=== PATIENT | female | born 1950 | race Caucasian/White ===

== ENCOUNTER 2016-03-18 13:46 | Inpatient (IN) | payer MEDICARE ==
[2016-03-18] MEDS ORDERED: methylPREDNISolone SOD SUCCI 125 MG/2 ML VIAL IV STA (13:59)
[2016-03-18] MEDS ORDERED: IPRATROPIUM-ALBUTEROL 3 ML NEB INHALATION STA (13:59)
[2016-03-18] MEDS ORDERED: SODIUM CHLORIDE 0.9% 500 ML IV STA (13:59)
--- NOTE | 2016-03-18 14:01 | ED ---
General Adult HPI - General Source: patient, RN notes reviewed Mode of arrival: EMS Limitations: no limitations <Binh Mays - Last Filed: 03/18/16 17:12> <Pedro Cooper - Last Filed: 03/18/16 17:48> - General Chief complaint: Shortness of Breath Stated complaint: AIDAN, fever Time Seen by Provider: 03/18/16 13:50 - History of Present Illness Initial comments: This is a 65-year-old female with a past medical history significant for COPD as well as diabetes patient comes in today complaining that she's having difficulty breathing over the last 2 days. Patient states she is on oxygen at home. Patient denies any abdominal pain patient denies nausea vomiting diarrhea. Patient denies any significant cough or sputum production. Patient denies any chest pain or palpitations. Patient denies any recent fever or chills. Patient denies headache patient denies numbness weakness. Patient denies any recent injury or trauma. She states she believes without problem except that she is getting a little more short of breath lately. (Binh Mays) - Related Data Home Medications Medication Instructions Recorded Confirmed Sertraline [Zoloft] 50 mg PO HS 01/17/14 03/18/16 Montelukast Sodium [Singulair] 10 mg PO HS 10/10/15 03/18/16 Cyclobenzaprine [Flexeril] 10 mg PO TID PRN 03/04/16 03/18/16 Famotidine [Pepcid] 20 mg PO QAM 03/04/16 03/18/16 Furosemide [Lasix] 40 mg PO QAM 03/04/16 03/18/16 Ipratropium-Albuterol Nebulize 3 ml INHALATION RT-QID PRN 03/04/16 03/18/16 [Duoneb 0.5 mg-3 mg/3 ml Soln] Potassium Chloride ER [K-Dur 20] 20 meq PO QAM 03/04/16 03/18/16 metFORMIN HCL 1,000 mg PO BID 03/04/16 03/18/16 Aspirin 325 mg PO DAILY 03/18/16 03/18/16 Clopidogrel [Plavix] 75 mg PO DAILY 03/18/16 03/18/16 Verapamil [Isoptin] 80 mg PO TID 03/18/16 03/18/16 Previous Rx's Medication Instructions Recorded Atorvastatin [Lipitor] 80 mg PO HS #30 tab 03/07/16 Azithromycin [Zithromax Z-pack] 250 mg PO DIRECTED #6 tab 03/18/16 methylPREDNISolone Dose Pack 24 mg PO DAILY #1 tab 03/18/16 [Medrol Dose Pack] Allergies Allergy/AdvReac Type Severity Reaction Status Date / Time adhesive Allergy Rash/Hives Verified 03/18/16 14:33 codeine AdvReac Nausea & Verified 03/18/16 14:33 Vomiting Review of Systems ROS Other: All systems not noted in ROS Statement are negative. <Binh Mays - Last Filed: 03/18/16 17:12> ROS Other: All systems not noted in ROS Statement are negative. <Pedro Cooper - Last Filed: 03/18/16 17:48> ROS Statement: Those systems with pertinent positive or pertinent negative responses have been documented in the HPI. 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 Chronic atrial fibrillation, chronic restrictive and obstructive lung disease secondary to morbid obesity and underlying bronchial asthma, chronic anemia History of Any Multi-Drug Resistant Organisms: None Reported Past Surgical History: Breast Surgery, Hernia Repair Additional Past Surgical History / Comment(s): cataracts Past Anesthesia/Blood Transfusion Reactions: No Reported Reaction Past Psychological History: Anxiety Smoking Status: Never smoker Past Alcohol Use History: None Reported Past Drug Use History: None Reported - Past Family History Mother Family Medical History: CVA/TIA <Binh Mays - Last Filed: 03/18/16 17:12> General Exam Limitations: no limitations <Binh Mays - Last Filed: 03/18/16 17:12> <Pedro Cooper - Last Filed: 03/18/16 17:48> - General Exam Comments Initial Comments: GENERAL: Patient is well-developed and well-nourished. Patient is nontoxic and well- hydrated and is in mild distress. ENT: Neck is soft and supple. No significant lymphadenopathy is noted. Oropharynx is clear. Moist mucous membranes. Neck has full range of motion without eliciting any pain. EYES: The sclera were anicteric and conjunctiva were pink and moist. Extraocular movements were intact and pupils were equal round and reactive to light. Eyelids were unremarkable. PULMONARY: Patient has some expiratory wheezing CARDIOVASCULAR: There is a regular rate and rhythm without any murmurs gallops or rubs. ABDOMEN: Soft and nontender with normal bowel sounds. No palpable organomegaly was noted. There is no palpable pulsatile mass. SKIN: Skin is clear with no lesions or rashes and otherwise unremarkable. NEUROLOGIC: Patient is alert and oriented x3. Cranial nerves II through XII are grossly intact. Motor and sensory are also intact. Normal speech, volume and content. Symmetrical smile. MUSCULOSKELETAL: Normal extremities with adequate strength and full range of motion. No lower extremity swelling or edema. No calf tenderness. LYMPHATICS: No significant lymphadenopathy is noted PSYCHIATRIC: Normal psychiatric evaluation. (Binh Mays) Medical Decision Making - Lab Data Result diagrams: 03/18/16 14:10 03/18/16 14:10 <Binh Mays - Last Filed: 03/18/16 17:12> - Lab Data Result diagrams: 03/18/16 14:10 03/18/16 14:10 - Radiology Data Radiology results: image reviewed (Chest x-ray shows cardiomegaly, right perihilar atelectasis.) <Pedro Cooper - Last Filed: 03/18/16 17:48> - Medical Decision Making EKG shows atrial fibrillation at 100 bpm QRS is 94 QT interval to 96 QTC is 381 per patient's EKG shows no ST segment elevation or depression or T-wave abdomen is noted. Dr. Cooper be taking over the care of this patient at 5 PM (Binh Mays) Patient requesting discharge home. Patient reexamined and resting comfortably at bedside. Lungs with mild occasional expiratory wheeze. Patient updated on results and need for close follow-up. (Pedro Cooper) - Lab Data Lab Results 03/18/16 03/18/16 03/18/16 Range/Units 14:10 14:10 14:10 WBC 9.2 (3.8-10.6) k/uL RBC 3.13 L (3.80-5.40) m/uL Hgb 8.7 L D (11.4-16.0) gm/dL Hct 27.1 L (34.0-46.0) % MCV 86.5 (80.0-100.0) fL MCH 27.8 (25.0-35.0) pg MCHC 32.2 (31.0-37.0) g/dL RDW 15.7 H (11.5-15.5) % Plt Count 264 (150-450) k/uL Neutrophils % 77 % Lymphocytes % 12 % Monocytes % 5 % Eosinophils % 3 % Basophils % 0 % Neutrophils # 7.0 (1.3-7.7) k/uL Lymphocytes # 1.1 (1.0-4.8) k/uL Monocytes # 0.5 (0-1.0) k/uL Eosinophils # 0.3 (0-0.7) k/uL Basophils # 0.0 (0-0.2) k/uL Hypochromasia Slight PT (9.0-12.0) sec INR (<1.1) APTT (22.0-30.0) sec Sodium 138 (137-145) mmol/L Potassium 4.6 (3.5-5.1) mmol/L Chloride 98 (98-107) mmol/L Carbon Dioxide 30 (22-30) mmol/L Anion Gap 10 mmol/L BUN 17 (7-17) mg/dL Creatinine 0.86 (0.52-1.04) mg/dL Est GFR (MDRD) Af Amer >60 (>60 ml/min/1.73 sqM) Est GFR (MDRD) Non-Af >60 (>60 ml/min/1.73 sqM) Glucose 130 H (74-99) mg/dL Calcium 9.2 (8.4-10.2) mg/dL Magnesium 1.5 L (1.6-2.3) mg/dL Total Bilirubin 0.6 (0.2-1.3) mg/dL AST 16 (14-36) U/L ALT 26 (9-52) U/L Alkaline Phosphatase 67 (38-126) U/L Total Creatine Kinase <20 L (30-135) U/L CK-MB (CK-2) 0.3 (0.0-2.4) ng/mL CK-MB (CK-2) Rel Index 0.0 Troponin I 0.015 (0.000-0.034) ng/mL NT-Pro-B Natriuret Pep pg/mL Total Protein 5.7 L (6.3-8.2) g/dL Albumin 3.2 L (3.5-5.0) g/dL 03/18/16 03/18/16 Range/Units 14:10 16:35 WBC (3.8-10.6) k/uL RBC (3.80-5.40) m/uL Hgb (11.4-16.0) gm/dL Hct (34.0-46.0) % MCV (80.0-100.0) fL MCH (25.0-35.0) pg MCHC (31.0-37.0) g/dL RDW (11.5-15.5) % Plt Count (150-450) k/uL Neutrophils % % Lymphocytes % % Monocytes % % Eosinophils % % Basophils % % Neutrophils # (1.3-7.7) k/uL Lymphocytes # (1.0-4.8) k/uL Monocytes # (0-1.0) k/uL Eosinophils # (0-0.7) k/uL Basophils # (0-0.2) k/uL Hypochromasia PT 17.6 H (9.0-12.0) sec INR 1.8 (<1.1) APTT 33.3 H (22.0-30.0) sec Sodium (137-145) mmol/L Potassium (3.5-5.1) mmol/L Chloride (98-107) mmol/L Carbon Dioxide (22-30) mmol/L Anion Gap mmol/L BUN (7-17) mg/dL Creatinine (0.52-1.04) mg/dL Est GFR (MDRD) Af Amer (>60 ml/min/1.73 sqM) Est GFR (MDRD) Non-Af (>60 ml/min/1.73 sqM) Glucose (74-99) mg/dL Calcium (8.4-10.2) mg/dL Magnesium (1.6-2.3) mg/dL Total Bilirubin (0.2-1.3) mg/dL AST (14-36) U/L ALT (9-52) U/L Alkaline Phosphatase (38-126) U/L Total Creatine Kinase (30-135) U/L CK-MB (CK-2) (0.0-2.4) ng/mL CK-MB (CK-2) Rel Index Troponin I (0.000-0.034) ng/mL NT-Pro-B Natriuret Pep 1760 pg/mL Total Protein (6.3-8.2) g/dL Albumin (3.5-5.0) g/dL Disposition <Binh Mays - Last Filed: 03/18/16 17:12> <Pedro Cooper - Last Filed: 03/18/16 17:48> Clinical Impression: Acute exacerbation of chronic obstructive airways disease Disposition: HOME SELF-CARE Condition: Stable Instructions: COPD (Chronic Obstructive Pulmonary Disease) (ED) Additional Instructions: Please follow-up with Dr. Taylor tomorrow. Return for difficulty breathing, fevers, chest pain, worsening symptoms or any other concerns. Prescriptions: Azithromycin [Zithromax Z-pack] 250 mg PO DIRECTED #6 tab methylPREDNISolone Dose Pack [Medrol Dose Pack] 24 mg PO DAILY #1 tab Referrals: John Taylor MD [Primary Care Provider] - 1-2 days
[2016-03-18 14:44] LABS: INR 1.8 (<1.1); Partial Thromboplastin Time 33.3 sec (22.0-30.0); Prothrombin Time 17.6 sec (9.0-12.0)
[2016-03-18 14:46] LABS: Basophils % (A) 0 %; CH 27.4; CHCM 31.8; Eosinophils # (A) 0.3 k/uL (0-0.7); Eosinophils % (A) 3 %; HCT 27.1 % (34.0-46.0); HDW 3.32; Hypochromasia Slight; Luc # (Auto) 0.31; Luc % (Auto) 3; Lymphocytes # (A) 1.1 k/uL (1.0-4.8); Lymphocytes % (A) 12 %; MCH 27.8 pg (25.0-35.0); MCHC 32.2 g/dL (31.0-37.0); MCV 86.5 fL (80.0-100.0); Mean Platelet Volume 7.2; Monocytes # (A) 0.5 k/uL (0-1.0); Monocytes % (A) 5 %; Neutrophils % (A) 77 %; RBC 3.13 m/uL (3.80-5.40); RDW 15.7 % (11.5-15.5); WBC 9.2 k/uL (3.8-10.6); WBC (Perox) 9.48
[2016-03-18 14:48] LABS: HGB 8.7 gm/dL (11.4-16.0)
[2016-03-18 14:52] LABS: ALT 26 U/L (9-52); AST 16 U/L (14-36); Alkaline Phosphatase 67 U/L (38-126); Anion Gap 10 mmol/L; Blood Urea Nitrogen 17 mg/dL (7-17); Calcium 9.2 mg/dL (8.4-10.2); Carbon Dioxide 30 mmol/L (22-30); Chloride 98 mmol/L (98-107); Glucose 130 mg/dL (74-99); Magnesium 1.5 mg/dL (1.6-2.3); Non-African American GFR(MDRD) >60 (>60 ml/min/1.73 sqM); Potassium 4.6 mmol/L (3.5-5.1); Sodium 138 mmol/L (137-145); Total Bilirubin 0.6 mg/dL (0.2-1.3); Total Protein 5.7 g/dL (6.3-8.2)
[2016-03-18 15:08] LABS: Creatine Kinase <20 U/L (30-135)
[2016-03-18 15:21] LABS: Creatine Kinase MB 0.3 ng/mL (0.0-2.4); Troponin I 0.015 ng/mL (0.000-0.034)
--- NOTE | 2016-03-18 16:30 | XR ---
EXAMINATION TYPE: XR chest 2V DATE OF EXAM: 03/18/2016 4:20 PM COMPARISON: 03/09/2016 INDICATION: Difficulty breathing TECHNIQUE: Frontal and lateral views of the chest are obtained. FINDINGS: Heart size is prominent. The pulmonary vasculature is normal. There is slight increased lung markings to the right lung field. Correlate for atelectasis IMPRESSION: 1. Cardiomegaly. 2. Correlate for atelectasis right perihilar region. Follow-up is recommended.
--- NOTE | 2016-03-18 18:57 | ED ---
Medical Decision Making - Medical Decision Making Family present and does not feel patient should go home. They state if she goes home they will just bring her back. Patient is agreeable to admission. Patient states she feels weak and nauseated. Case discussed with Dr. Mora, who will admit for Dr. Taylor. - Lab Data Result diagrams: 03/18/16 14:10 03/18/16 14:10 Lab Results 03/18/16 03/18/16 03/18/16 Range/Units 14:10 14:10 14:10 WBC 9.2 (3.8-10.6) k/uL RBC 3.13 L (3.80-5.40) m/uL Hgb 8.7 L D (11.4-16.0) gm/dL Hct 27.1 L (34.0-46.0) % MCV 86.5 (80.0-100.0) fL MCH 27.8 (25.0-35.0) pg MCHC 32.2 (31.0-37.0) g/dL RDW 15.7 H (11.5-15.5) % Plt Count 264 (150-450) k/uL Neutrophils % 77 % Lymphocytes % 12 % Monocytes % 5 % Eosinophils % 3 % Basophils % 0 % Neutrophils # 7.0 (1.3-7.7) k/uL Lymphocytes # 1.1 (1.0-4.8) k/uL Monocytes # 0.5 (0-1.0) k/uL Eosinophils # 0.3 (0-0.7) k/uL Basophils # 0.0 (0-0.2) k/uL Hypochromasia Slight PT (9.0-12.0) sec INR (<1.1) APTT (22.0-30.0) sec Sodium 138 (137-145) mmol/L Potassium 4.6 (3.5-5.1) mmol/L Chloride 98 (98-107) mmol/L Carbon Dioxide 30 (22-30) mmol/L Anion Gap 10 mmol/L BUN 17 (7-17) mg/dL Creatinine 0.86 (0.52-1.04) mg/dL Est GFR (MDRD) Af Amer >60 (>60 ml/min/1.73 sqM) Est GFR (MDRD) Non-Af >60 (>60 ml/min/1.73 sqM) Glucose 130 H (74-99) mg/dL Calcium 9.2 (8.4-10.2) mg/dL Magnesium 1.5 L (1.6-2.3) mg/dL Total Bilirubin 0.6 (0.2-1.3) mg/dL AST 16 (14-36) U/L ALT 26 (9-52) U/L Alkaline Phosphatase 67 (38-126) U/L Total Creatine Kinase <20 L (30-135) U/L CK-MB (CK-2) 0.3 (0.0-2.4) ng/mL CK-MB (CK-2) Rel Index 0.0 Troponin I 0.015 (0.000-0.034) ng/mL NT-Pro-B Natriuret Pep pg/mL Total Protein 5.7 L (6.3-8.2) g/dL Albumin 3.2 L (3.5-5.0) g/dL 03/18/16 03/18/16 Range/Units 14:10 16:35 WBC (3.8-10.6) k/uL RBC (3.80-5.40) m/uL Hgb (11.4-16.0) gm/dL Hct (34.0-46.0) % MCV (80.0-100.0) fL MCH (25.0-35.0) pg MCHC (31.0-37.0) g/dL RDW (11.5-15.5) % Plt Count (150-450) k/uL Neutrophils % % Lymphocytes % % Monocytes % % Eosinophils % % Basophils % % Neutrophils # (1.3-7.7) k/uL Lymphocytes # (1.0-4.8) k/uL Monocytes # (0-1.0) k/uL Eosinophils # (0-0.7) k/uL Basophils # (0-0.2) k/uL Hypochromasia PT 17.6 H (9.0-12.0) sec INR 1.8 (<1.1) APTT 33.3 H (22.0-30.0) sec Sodium (137-145) mmol/L Potassium (3.5-5.1) mmol/L Chloride (98-107) mmol/L Carbon Dioxide (22-30) mmol/L Anion Gap mmol/L BUN (7-17) mg/dL Creatinine (0.52-1.04) mg/dL Est GFR (MDRD) Af Amer (>60 ml/min/1.73 sqM) Est GFR (MDRD) Non-Af (>60 ml/min/1.73 sqM) Glucose (74-99) mg/dL Calcium (8.4-10.2) mg/dL Magnesium (1.6-2.3) mg/dL Total Bilirubin (0.2-1.3) mg/dL AST (14-36) U/L ALT (9-52) U/L Alkaline Phosphatase (38-126) U/L Total Creatine Kinase (30-135) U/L CK-MB (CK-2) (0.0-2.4) ng/mL CK-MB (CK-2) Rel Index Troponin I (0.000-0.034) ng/mL NT-Pro-B Natriuret Pep 1760 pg/mL Total Protein (6.3-8.2) g/dL Albumin (3.5-5.0) g/dL Disposition Clinical Impression: Acute exacerbation of chronic obstructive airways disease Disposition: ADMITTED IP TO THIS HOSP Condition: Stable Instructions: COPD (Chronic Obstructive Pulmonary Disease) (ED) Additional Instructions: Please follow-up with Dr. Taylor tomorrow. Return for difficulty breathing, fevers, chest pain, worsening symptoms or any other concerns. Prescriptions: Azithromycin [Zithromax Z-pack] 250 mg PO DIRECTED #6 tab methylPREDNISolone Dose Pack [Medrol Dose Pack] 24 mg PO DAILY #1 tab Referrals: John Taylor MD [Primary Care Provider] - 1-2 days
[2016-03-18] MEDS ORDERED: IPRATROPIUM-ALBUTEROL 3 ML NEB INHALATION PRN (18:58)
[2016-03-18] MEDS: AZITHROMYCIN 500 MG TAB PO SCH (20:05)
[2016-03-18] MEDS: IPRATROPIUM-ALBUTEROL 3 ML NEB INHALATION SCH (20:08)
[2016-03-18] MEDS ORDERED: ACETAMINOPHEN TAB 325 MG TAB PO PRN (20:13)
[2016-03-18] MEDS ORDERED: CYCLOBENZAPRINE 10 MG TAB PO PRN (22:37)
[2016-03-18] MEDS: VERAPAMIL 80 MG TAB PO SCH (23:39)
[2016-03-18] MEDS: SERTRALINE 50 MG TAB PO SCH (23:40)
[2016-03-18] MEDS: MONTELUKAST 10 MG TAB PO SCH (23:40)
[2016-03-18] MEDS: methylPREDNISolone SOD SUCCI 125 MG/2 ML VIAL IV SCH (23:40)
[2016-03-18] MEDS: ATORVASTATIN 80 MG TAB PO SCH (23:40)
[2016-03-19] MEDS: methylPREDNISolone SOD SUCCI 125 MG/2 ML VIAL IV SCH ×4 (06:11→23:11)
[2016-03-19 07:14] LABS: Glucose,Whole Blood 341 mg/dL (75-99)
[2016-03-19] MEDS: IPRATROPIUM-ALBUTEROL 3 ML NEB INHALATION SCH ×4 (07:37→20:46)
[2016-03-19] MEDS: VERAPAMIL 80 MG TAB PO SCH ×3 (08:00→21:14)
[2016-03-19] MEDS: ASPIRIN 325 MG TAB PO SCH (08:01)
[2016-03-19] MEDS: POTASSIUM CHLORIDE ER 20 MEQ TAB.ER PO SCH (08:01)
[2016-03-19] MEDS: AZITHROMYCIN 500 MG TAB PO SCH (08:01)
[2016-03-19] MEDS: metFORMIN 500 MG TAB PO SCH ×2 (08:01→21:13)
[2016-03-19] MEDS: CLOPIDOGREL 75 MG TAB PO SCH (08:01)
[2016-03-19] MEDS: FAMOTIDINE 20 MG TAB PO SCH (08:02)
[2016-03-19] MEDS: FUROSEMIDE 40 MG TAB PO SCH (08:02)
[2016-03-19] MEDS: INSULIN LISPRO (humaLOG) 300 UNIT/3 ML VIAL SQ SCH ×3 (08:03→17:50)
[2016-03-19] MEDS ORDERED: Magnesium Replacement Protocol 1 EACH MISC MISCELLANE PRN (08:34)
[2016-03-19 09:09] LABS: Basophils % (A) 0 %; CHCM 29.7; Eosinophils % (A) 0 %; HCT 27.9 % (34.0-46.0); HDW 3.09; HGB 8.4 gm/dL (11.4-16.0); Hypochromasia Marked; Luc # (Auto) 0.08; Luc % (Auto) 1; Lymphocytes # (A) 0.7 k/uL (1.0-4.8); Lymphocytes % (A) 10 %; MCH 27.6 pg (25.0-35.0); MCHC 30.2 g/dL (31.0-37.0); MCV 91.4 fL (80.0-100.0); Mean Platelet Volume 7.4; Monocytes # (A) 0.2 k/uL (0-1.0); Monocytes % (A) 2 %; Neutrophils # (A) 6.5 k/uL (1.3-7.7); Neutrophils % (A) 87 %; RBC 3.05 m/uL (3.80-5.40); RDW 15.5 % (11.5-15.5); WBC 7.5 k/uL (3.8-10.6); WBC (Perox) 8.23
[2016-03-19 09:12] LABS: INR 1.6 (<1.1); Prothrombin Time 15.3 sec (9.0-12.0)
[2016-03-19 09:32] LABS: Anion Gap 13 mmol/L; Blood Urea Nitrogen 20 mg/dL (7-17); Calcium 9.2 mg/dL (8.4-10.2); Carbon Dioxide 28 mmol/L (22-30); Chloride 95 mmol/L (98-107); Glucose 438 mg/dL (74-99); Non-African American GFR(MDRD) >60 (>60 ml/min/1.73 sqM); Potassium 4.8 mmol/L (3.5-5.1); Sodium 136 mmol/L (137-145)
[2016-03-19 10:46] LABS: Hemoglobin A1C 7.1 % (4.2-6.1)
[2016-03-19] MEDS: MAGNESIUM SULFATE-D5W PMX 1 GM in DEXTROSE/WATER 1 100ML.BAG IVPB SCH ×2 (11:22→13:07)
[2016-03-19 12:41] LABS: Glucose,Whole Blood 408 mg/dL (75-99)
[2016-03-19] MEDS ORDERED: INSULIN REGULAR BOLUS (FROM DRIP BAG) IV ONE (14:20)
--- NOTE | 2016-03-19 15:13 | P.HPIM ---
History of Present Illness H&P Date: 03/19/16 Chief Complaint: Shortness of breath Patient is a 65-year-old female with medical history significant for asthma, COPD, urinary tract infection, atrial fibrillation, obstructive sleep apnea maintained on CPAP on an outpatient basis, morbid obesity, diabetes mellitus type 2, large anterior abdominal wall hernia, chronic back pain with lumbar radiculopathy, generalized anxiety, chronic hypoxic respiratory failure on home O2 at 4 L [id number], hypertension, anemia, and renal insufficiency. Patient presented to the emergency department with complaints of difficulty breathing 2 days. Patient denied any other symptoms except getting more short of breath lately. Admission EKG with atrial fibrillation and nonspecific T-wave abnormality. Admission chest x-ray with evidence of cardiomegaly and possible atelectasis of the right perihilar region. Labs on admission hemoglobin 8.7, INR 1.8, magnesium 1.5, NT proBNP 1760. Patient with clinical findings of expiratory wheezing. Patient was admitted to the medical floor with the impression of acute exacerbation of chronic obstructive airways disease for antibiotics and steroid treatment. Consults requested for Dr. Rubalcava for pulmonary service and cardiology for history of heart failure and atrial fibrillation. Upon examination, patient reports improvement in breathing. Patient denies chills, nausea, vomiting, cough, chest pain, abdominal pain, or leg swelling. Patient reports good appetite. There is concern that patient may not have been taking her prescribed medications at home and is a vague upon questioning. It is noted the patient has had for visits in the last month to the hospital with complaints of difficulty breathing. Patient lives with her niece and nephew but states they should be helping her more. 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 Chronic atrial fibrillation, chronic restrictive and obstructive lung disease secondary to morbid obesity and underlying bronchial asthma, chronic anemia History of Any Multi-Drug Resistant Organisms: None Reported Past Surgical History: Breast Surgery, Hernia Repair Additional Past Surgical History / Comment(s): cataracts Past Anesthesia/Blood Transfusion Reactions: No Reported Reaction Past Psychological History: Anxiety Smoking Status: Never smoker Past Alcohol Use History: None Reported Past Drug Use History: None Reported - Past Family History Mother Family Medical History: CVA/TIA Medications and Allergies Home Medications Medication Instructions Recorded Confirmed Type Sertraline [Zoloft] 50 mg PO HS 01/17/14 03/18/16 History Montelukast Sodium [Singulair] 10 mg PO HS 10/10/15 03/18/16 History Cyclobenzaprine [Flexeril] 10 mg PO TID PRN 03/04/16 03/18/16 History Famotidine [Pepcid] 20 mg PO QAM 03/04/16 03/18/16 History Furosemide [Lasix] 40 mg PO QAM 03/04/16 03/18/16 History Ipratropium-Albuterol Nebulize 3 ml INHALATION RT-QID PRN 03/04/16 03/18/16 History [Duoneb 0.5 mg-3 mg/3 ml Soln] Potassium Chloride ER [K-Dur 20] 20 meq PO QAM 03/04/16 03/18/16 History metFORMIN HCL 1,000 mg PO BID 03/04/16 03/18/16 History Aspirin 325 mg PO DAILY 03/18/16 03/18/16 History Clopidogrel [Plavix] 75 mg PO DAILY 03/18/16 03/18/16 History Verapamil [Isoptin] 80 mg PO TID 03/18/16 03/18/16 History Allergies Allergy/AdvReac Type Severity Reaction Status Date / Time adhesive Allergy Rash/Hives Verified 03/18/16 14:33 codeine AdvReac Nausea & Verified 03/18/16 14:33 Vomiting Physical Exam Vitals: Vital Signs Temp Pulse Pulse Resp BP BP Pulse Ox 03/19/16 07:52 92 03/19/16 07:37 88 03/19/16 07:00 98.4 F 96 20 132/71 100 03/19/16 06:22 18 95 03/18/16 23:00 98.5 F 86 20 132/76 92 L 03/18/16 22:15 20 03/18/16 20:20 92 03/18/16 20:10 88 03/18/16 20:06 99.2 F 71 20 155/97 92 L 03/18/16 19:05 99.1 F 70 18 148/69 96 Intake and Output 01/03/17 01/04/17 01/04/17 22:59 06:59 14:59 Intake Total 999 999 Balance 999 999 Intake: IV 999 Sodium Chloride 0.9% 500 999 ml @ 999 mls/hr IV .Q31M STA Rx#:[id number] Intake, IV Titration 999 Amount Sodium Chloride 0.9% 500 999 ml @ 999 mls/hr IV .Q31M STA Rx#:[id number] Other: # Voids 2 GENERAL: Pt awake and alert, well-appearing, well-nourished, and in no acute distress. HEAD: Atraumatic, normocephalic. EYES: Pupils equal, round, and reactive to light, extraocular movements intact, sclera anicteric, conjunctiva are normal. ENT: Moist mucous membranes. NECK:Normal range of motion, supple without lymphadenopathy or JVD. No carotid bruits. Thyroid midline, small and firm without palpable masses. LUNGS: Breath sounds diminished to auscultation bilaterally. Mild expiratory wheezing. HEART: Heart S1, S2, no S3 or S4. Irregularly irregular. No murmurs, rubs or gallops. ABDOMEN: Soft, morbidly obese, nontender, nondistended, normoactive bowel sounds. No guarding, no rebound. Large incisional hernia present. EXTREMITIES: 2+ peripheral pulses. No edema. No calf tenderness. NEUROLOGICAL: Pt oriented x 3. Cranial nerves II through XII grossly intact. Strength and sensation grossly intact. PSYCH: Normal mood, normal affect. SKIN: Warm, dry, intact. Normal turgor. No rashes or lesions. Results CBC & Chem 7: 03/19/16 08:38 03/19/16 08:38 Labs: Abnormal Lab Results - Last 24 Hours (Table) 03/19/16 03/19/16 03/19/16 Range/Units 07:12 08:38 08:38 RBC 3.05 L (3.80-5.40) m/uL Hgb 8.4 L (11.4-16.0) gm/dL Hct 27.9 L (34.0-46.0) % MCHC 30.2 L (31.0-37.0) g/dL Lymphocytes # 0.7 L (1.0-4.8) k/uL PT 15.3 H (9.0-12.0) sec Sodium (137-145) mmol/L Chloride (98-107) mmol/L BUN (7-17) mg/dL Glucose (74-99) mg/dL POC Glucose (mg/dL) 341 H (75-99) mg/dL 03/19/16 03/19/16 Range/Units 08:38 12:40 RBC (3.80-5.40) m/uL Hgb (11.4-16.0) gm/dL Hct (34.0-46.0) % MCHC (31.0-37.0) g/dL Lymphocytes # (1.0-4.8) k/uL PT (9.0-12.0) sec Sodium 136 L (137-145) mmol/L Chloride 95 L (98-107) mmol/L BUN 20 H (7-17) mg/dL Glucose 438 H (74-99) mg/dL POC Glucose (mg/dL) 408 H (75-99) mg/dL Thrombosis Risk Factor Assmnt - DVT/VTE Prophylaxis DVT/VTE Prophylaxis: Mechanical Prophylaxis ordered - Choose All That Apply Any of the Below Risk Factors Present?: Yes Each Factor Represents 1 point: Abnormal pulmonary function (COPD), Obesity ( BMI >25), Swollen legs (current) Other Risk Factors: Yes Each Risk Factor Represents 2 Points: Age 61-74 years Other congenital or acquired thrombophilia - If yes, enter type in comment: No Thrombosis Risk Factor Assessment Total Risk Factor Score: 5 Thrombosis Risk Factor Assessment Level: High Risk Assessment and Plan Plan: Impression and plan: 1. Acute exacerbation of COPD. Pulmonology consult requested, recommendations pending. Continue DuoNeb updrafts. Continue PO Lasix. Continue methylprednisolone. Continue supplemental oxygen. continue Zithromax. 2. Chronic bronchial asthma. Continue Singulair. 3. Chronic atrial fibrillation. INR 1.6. Cardiology consult requested, recommendations pending for anticoagulation. Continue verapamil. 4. Obstructive sleep apnea maintained on CPAP on outpatient basis. 5. Diabetes mellitus type 2, uncontrolled. Hemoglobin A1c 7.1. Start patient on IV insulin until steroids are tapered down. 6. Large anterior abdominal wall hernia. Continue to monitor. 7. History of chronic back pain with lumbar radiculopathy. Continue pain management as needed. 8. Generalized anxiety. Continue Zoloft. 9. Chronic hypoxic respiratory failure on home O2 at 3-4 L [id number]. Continue supplemental oxygen. 10. Hypertension. 11. Anemia, normocytic, normochromic suspect secondary to chronic disease. 12. Super morbid obesity. BMI 50.6. 13. Chronic diastolic congestive heart failure. last echocardiogram with Doppler with an EF between 50-55% and moderate pulmonary hypertension. 14. DVT prophylaxis. pneumatic compression sleeves to bilateral lower extremities. 15. GI prophylaxis. Continue Pepcid. 16. Repeat CBC, BMP, PT/INR in a.m. The above impression and plan have been discussed and directed by Dr. Tompkins. Christina RANKIN acting as scribe for Dr. Tompkins.
[2016-03-19] MEDS ORDERED: INSULIN REGULAR 100 UNIT in SODIUM CHLORIDE 0.9% 100 ML IV SCH (15:45)
--- NOTE | 2016-03-19 16:06 | P.CNPUL ---
History of Present Illness Consult date: 03/19/16 Reason for consult: dyspnea Chief complaint: Shortness of breath History of present illness: This is a 65-year-old female was admitted to the emergency room with a complaint of difficulty breathing or for about 2 days prior to admission. She does use oxygen at home and does have a long-standing history of underlying COPD and diabetes. She apparently in this hospital many times before and was recognized by my nurse practitioner Ambika. In addition she had no wheezing and cough. She did have some phlegm production not a lot. She just felt lots of chest congestion. Denied any fever or chills. No nausea vomiting or diarrhea. He apparently was seen by Dr. Mays in the emergency room and then by Dr. Cooper. Her past medical history includes atrial fibrillation diabetes obesity hyperlipidemia abdominal wall hernias sleep apnea syndrome chronic back pain and generalized anxiety disorder and chronic anemia. Review of Systems A 12 point review of system is primarily positive for shortness of breath which is much improved today. In addition she had wheezing chest congestion cough with some phlegm production not a lot. No fever no chills. No nausea vomiting or diarrhea. Rest of the 12 point review of system was unremarkable Past Medical History Past Medical History: Atrial Fibrillation, COPD, Diabetes Mellitus Additional Past Medical History / Comment(s): Morbid obesity, COPD, bronchial asthma, diabetes mellitus, hyperlipidemia, large anterior abdominal wall hernia , obstructive sleep apnea maintained on CPAP on outpatient basis, back pain, generalized anxiety disorder, lumbar radiculopathy, kidney cysts, 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 Chronic atrial fibrillation, chronic restrictive and obstructive lung disease secondary to morbid obesity and underlying bronchial asthma, chronic anemia History of Any Multi-Drug Resistant Organisms: None Reported Past Surgical History: Breast Surgery, Hernia Repair Additional Past Surgical History / Comment(s): cataracts Past Anesthesia/Blood Transfusion Reactions: No Reported Reaction Past Psychological History: Anxiety Smoking Status: Never smoker Past Alcohol Use History: None Reported Past Drug Use History: None Reported - Past Family History Mother Family Medical History: CVA/TIA Medications and Allergies Home Medications Medication Instructions Recorded Confirmed Type Sertraline [Zoloft] 50 mg PO HS 01/17/14 03/18/16 History Montelukast Sodium [Singulair] 10 mg PO HS 10/10/15 03/18/16 History Cyclobenzaprine [Flexeril] 10 mg PO TID PRN 03/04/16 03/18/16 History Famotidine [Pepcid] 20 mg PO QAM 03/04/16 03/18/16 History Furosemide [Lasix] 40 mg PO QAM 03/04/16 03/18/16 History Ipratropium-Albuterol Nebulize 3 ml INHALATION RT-QID PRN 03/04/16 03/18/16 History [Duoneb 0.5 mg-3 mg/3 ml Soln] Potassium Chloride ER [K-Dur 20] 20 meq PO QAM 03/04/16 03/18/16 History metFORMIN HCL 1,000 mg PO BID 03/04/16 03/18/16 History Aspirin 325 mg PO DAILY 03/18/16 03/18/16 History Clopidogrel [Plavix] 75 mg PO DAILY 03/18/16 03/18/16 History Verapamil [Isoptin] 80 mg PO TID 03/18/16 03/18/16 History Allergies Allergy/AdvReac Type Severity Reaction Status Date / Time adhesive Allergy Rash/Hives Verified 03/18/16 14:33 codeine AdvReac Nausea & Verified 03/18/16 14:33 Vomiting Physical Exam Osteopathic Statement: *. No significant issues noted on an osteopathic structural exam other than those noted in the History and Physical/Consult. Vitals: Vital Signs Temp Pulse Pulse Resp BP BP Pulse Ox 03/19/16 15:00 98.7 F 83 19 140/62 95 03/19/16 07:52 92 03/19/16 07:37 88 03/19/16 07:00 98.4 F 96 20 132/71 100 03/19/16 06:22 18 95 03/18/16 23:00 98.5 F 86 20 132/76 92 L 03/18/16 22:15 20 03/18/16 20:20 92 03/18/16 20:10 88 03/18/16 20:06 99.2 F 71 20 155/97 92 L 03/18/16 19:05 99.1 F 70 18 148/69 96 Intake and Output 03/19/16 03/19/16 03/19/16 06:59 14:59 22:59 Intake Total 999 Balance 999 Intake: IV 999 Sodium Chloride 0.9% 500 999 ml @ 999 mls/hr IV .Q31M [facility] Rx#:[id number] Other: # Voids 2 4 No acute distress, lying flat in bed. Oriented 3. HEENT examination is grossly unremarkable. Mucous membranes are moist. No oral lesions. Neck supple. Full range of motion. No adenopathy. Cardiovascular examination reveals regular rhythm rate. S1 and S2 normal. Lungs reveal mostly clear breath sounds. A few scattered rhonchi. No wheezes. Abdomen is obese. Extremities are intact. Results - Laboratory Findings CBC and BMP: 03/19/16 08:38 03/19/16 08:38 PT/INR, D-dimer PT 15.3 sec (9.0-12.0) H 03/19/16 08:38 INR 1.6 (<1.1) 03/19/16 08:38 Abnormal lab findings: Abnormal Labs 03/19/16 03/19/16 03/19/16 07:12 08:38 08:38 RBC 3.05 L Hgb 8.4 L Hct 27.9 L MCHC 30.2 L Lymphocytes # 0.7 L PT 15.3 H Sodium Chloride BUN Glucose POC Glucose (mg/dL) 341 H 03/19/16 03/19/16 08:38 12:40 RBC Hgb Hct MCHC Lymphocytes # PT Sodium 136 L Chloride 95 L BUN 20 H Glucose 438 H POC Glucose (mg/dL) 408 H Assessment and Plan (1) Acute exacerbation of chronic obstructive airways disease Status: Acute (2) Anemia Status: Acute (3) Congestive heart failure Status: Acute (4) Morbid obesity Status: Acute Plan: Plan The patient patient's laboratory data x-rays and medications will all be reviewed. Additional recommendations suggestions are forthcoming. Going to that she wants be discharged home. Feeling back to baseline. The primary we' ll make that decision. No additional recommendations are made. Primary doctor Dr. Bhavik Tompkins. Time with Patient: Greater than 30
[2016-03-19 16:43] LABS: Glucose,Whole Blood 245 mg/dL (75-99)
[2016-03-19] MEDS ORDERED: INSULIN LISPRO (humaLOG) 300 UNIT/3 ML VIAL SQ SCH (17:30)
[2016-03-19 17:45] LABS: Glucose,Whole Blood 169 mg/dL (75-99)
[2016-03-19 18:33] LABS: Glucose,Whole Blood 135 mg/dL (75-99)
--- NOTE | 2016-03-19 19:05 | CONS ---
DATE OF CONSULTATION: Eleni Moses who is a 65-year-old female admitted by Dr. Bhavik Tompkins. Consultation requested by Dr. Bhavik Tompkins. Patient admitted to the hospital with increasing shortness of breath and noted to have acute exacerbation of chronic bronchitis. Patient is a nonsmoker, but noted to have asthma and ( ) exposed to smoke, secondary smoke in the house with parents and other family members in the house. Patient lost last year and patient has been morbidly obese all along and has been on multiple medications including Zoloft 50 mg p.o. daily along with montelukast 10 mg p.o., Flexeril 10 mg p.r.n., famotidine 20 mg p.o. daily, furosemide 40 mg p.o. daily, Atrovent and albuterol inhalers, potassium 20 mEq, metformin 1000 mg p.o. b.i.d., aspirin 325 mg, clopidogrel 75 mg, verapamil 80 mg p.o. t.i.d. Patient is ALLERGIC TO CODEINE. Patient denies any chest pain or pressure. Patient has not been on Coumadin. Patient also noted to have chronic atrial fibrillation and flutter with controlled ventricular rate. Patient pro times are mildly elevated in spite of not being on any medications. May be an effect of the antibiotics she is receiving possibly, but patient needs to be on long-term anticoagulation being a diabetic and patient's age to decrease her chance of having thromboembolic complications leading to strokes. Physical examination revealed patient is also anemic and needs to be investigated for anemia because normal LV function is normal. Patient's kidney functions are normal. Physical examination revealed well-developed, well-nourished, morbidly obese female with stable vital signs with a pulse rate of 88 beats per minute, irregularly irregular, blood pressure 132/71, respirations of 18. HEAD: Normocephalic. HEENT unremarkable. Neck is supple. No JVD. CARDIAC EXAMINATION: Irregular rate and rhythm. S1 and S2. LUNGS: Reveal scattered rhonchi. No rales are noted. ABDOMEN: Obese. No organomegaly. Active bowel sounds. EXTREMITIES: No pedal edema. Decreased pedal pulses. ASSESSMENT: 1. Acute exacerbation of chronic bronchitis and history of asthma, secondary smoke. 2. Chronic atrial fibrillation and flutter with controlled ventricular rate. 3. Morbid exogenous obesity. 4. Diabetes mellitus. RECOMMENDATIONS: Based on the ABDON score, patient needs to be on anticoagulation for a long time. Patient would benefit either starting her on newer agents, blockers, or go with the Coumadin. ( ) start the Plavix. Thanks again for this kind referral.
[2016-03-19 20:07] LABS: Glucose,Whole Blood 129 mg/dL (75-99)
[2016-03-19] MEDS: SYMBICORT 160-4.5 MCG INHALER INHALATION SCH (20:46)
[2016-03-19 21:01] LABS: Glucose,Whole Blood 162 mg/dL (75-99)
[2016-03-19] MEDS: ATORVASTATIN 80 MG TAB PO SCH (21:13)
[2016-03-19] MEDS: MONTELUKAST 10 MG TAB PO SCH (21:13)
[2016-03-19] MEDS: SERTRALINE 50 MG TAB PO SCH (21:13)
[2016-03-19 23:00] LABS: Glucose,Whole Blood 219 mg/dL (75-99)
[2016-03-20 01:09] LABS: Glucose,Whole Blood 148 mg/dL (75-99)
[2016-03-20 03:09] LABS: Glucose,Whole Blood 121 mg/dL (75-99)
[2016-03-20 04:09] LABS: Glucose,Whole Blood 139 mg/dL (75-99)
[2016-03-20 06:02] LABS: Glucose,Whole Blood 185 mg/dL (75-99)
[2016-03-20] MEDS: methylPREDNISolone SOD SUCCI 125 MG/2 ML VIAL IV SCH (06:13)
[2016-03-20] MEDS: POTASSIUM CHLORIDE ER 20 MEQ TAB.ER PO SCH (08:23)
[2016-03-20] MEDS: ASPIRIN 325 MG TAB PO SCH (08:23)
[2016-03-20] MEDS: metFORMIN 500 MG TAB PO SCH ×2 (08:23→21:18)
[2016-03-20] MEDS: FAMOTIDINE 20 MG TAB PO SCH (08:23)
[2016-03-20] MEDS: CLOPIDOGREL 75 MG TAB PO SCH (08:23)
[2016-03-20] MEDS: AZITHROMYCIN 500 MG TAB PO SCH (08:23)
[2016-03-20] MEDS: FUROSEMIDE 40 MG TAB PO SCH (08:23)
[2016-03-20] MEDS: VERAPAMIL 80 MG TAB PO SCH ×3 (08:23→21:19)
[2016-03-20] MEDS: IPRATROPIUM-ALBUTEROL 3 ML NEB INHALATION SCH ×5 (08:24→20:49)
[2016-03-20] MEDS: SYMBICORT 160-4.5 MCG INHALER INHALATION SCH ×3 (08:25→20:49)
[2016-03-20] MEDS: INSULIN LISPRO (humaLOG) 300 UNIT/3 ML VIAL SQ SCH ×5 (08:27→21:20)
[2016-03-20 08:38] LABS: Glucose,Whole Blood 146 mg/dL (75-99)
[2016-03-20 08:39] LABS: Basophils % (A) 0 %; CH 27.5; CHCM 30.7; Eosinophils % (A) 0 %; HCT 26.4 % (34.0-46.0); HDW 3.05; HGB 7.9 gm/dL (11.4-16.0); Hypochromasia Moderate; Luc # (Auto) 0.07; Luc % (Auto) 0; Lymphocytes # (A) 0.6 k/uL (1.0-4.8); Lymphocytes % (A) 3 %; MCH 26.9 pg (25.0-35.0); MCHC 29.8 g/dL (31.0-37.0); Mean Platelet Volume 8.1; Monocytes # (A) 0.6 k/uL (0-1.0); Monocytes % (A) 3 %; Neutrophils # (A) 17.3 k/uL (1.3-7.7); Neutrophils % (A) 93 %; RBC 2.94 m/uL (3.80-5.40); RDW 15.8 % (11.5-15.5); WBC 18.5 k/uL (3.8-10.6)
[2016-03-20 09:27] LABS: Anion Gap 11 mmol/L; Blood Urea Nitrogen 33 mg/dL (7-17); Calcium 9.7 mg/dL (8.4-10.2); Carbon Dioxide 29 mmol/L (22-30); Chloride 99 mmol/L (98-107); Glucose 151 mg/dL (74-99); Magnesium 1.9 mg/dL (1.6-2.3); Non-African American GFR(MDRD) 54 (>60 ml/min/1.73 sqM); Potassium 5.3 mmol/L (3.5-5.1); Sodium 139 mmol/L (137-145)
[2016-03-20 10:43] LABS: Glucose,Whole Blood 99 mg/dL (75-99)
[2016-03-20 11:35] LABS: Glucose,Whole Blood 83 mg/dL (75-99)
[2016-03-20 12:07] LABS: Glucose,Whole Blood 79 mg/dL (75-99)
--- NOTE | 2016-03-20 13:39 | P.PN ---
Subjective This is a pleasant 65-year-old female patient who follows with Dr. Taylor as her primary care physician. May be she has a history of diabetes mellitus, atrial fibrillation, chronic obstructive pulmonary disease. She presented here on 03/18/2016 with complaints of increasing shortness of breath cough and congestion. She is seen again today in follow-up. She is awake and alert in no acute distress. She is been treated for COPD exacerbation. There is no clear evidence of pneumonia. She is breathing better today as compared to yesterday and is anxious to go home. Objective - Vital Signs Vital signs: Vital Signs Temp 97.3 F L 03/20/16 07:00 Pulse 92 03/20/16 12:16 Resp 24 03/20/16 07:00 BP 151/68 03/20/16 07:00 Pulse Ox 96 03/20/16 08:15 Intake & Output 03/19/16 03/20/16 03/20/16 18:59 06:59 18:59 Intake Total 12.75 431.483 256.500 Balance 12.75 431.483 256.500 Intake: Intake, IV Titration 12.75 31.483 16.500 Amount Insulin Regular 100 unit 12.75 31.483 16.500 In Sodium Chloride 0.9% 100 ml @ Titrate IV .Q0M [facility] Rx#:[id number] Oral 400 240 Other: Voiding Method Bedside Commode # Voids 4 2 - Exam GENERAL EXAM: Alert, active, comfortable in no apparent distress. HEAD: Normocephalic. EYES: Normal reaction of pupils, equal size. NOSE: Clear with pink turbinates. THROAT: No erythema or exudates. NECK: No masses, no JVD. CHEST: No chest wall deformity. LUNGS: Equal air entry with no crackles, wheeze, rhonchi or dullness. CVS: S1 and S2 normal with no audible murmurs, regular rhythm. ABDOMEN: Large abdominal wall incisional hernia. Obese, normal bowel sounds, no guarding or rigidity. Extremities: There is trace peripheral edema. No clubbing, no cyanosis. Peripheral pulses are intact. - Labs CBC & Chem 7: 03/20/16 08:20 03/20/16 08:20 Labs: Abnormal Lab Results - Last 24 Hours (Table) 03/19/16 03/19/16 03/19/16 Range/Units 16:42 17:44 18:31 WBC (3.8-10.6) k/uL RBC (3.80-5.40) m/uL Hgb (11.4-16.0) gm/dL Hct (34.0-46.0) % MCHC (31.0-37.0) g/dL RDW (11.5-15.5) % Neutrophils # (1.3-7.7) k/uL Lymphocytes # (1.0-4.8) k/uL Potassium (3.5-5.1) mmol/L BUN (7-17) mg/dL Glucose (74-99) mg/dL POC Glucose (mg/dL) 245 H 169 H 135 H (75-99) mg/dL 03/19/16 03/19/16 03/19/16 Range/Units 20:03 20:59 22:55 WBC (3.8-10.6) k/uL RBC (3.80-5.40) m/uL Hgb (11.4-16.0) gm/dL Hct (34.0-46.0) % MCHC (31.0-37.0) g/dL RDW (11.5-15.5) % Neutrophils # (1.3-7.7) k/uL Lymphocytes # (1.0-4.8) k/uL Potassium (3.5-5.1) mmol/L BUN (7-17) mg/dL Glucose (74-99) mg/dL POC Glucose (mg/dL) 129 H 162 H 219 H (75-99) mg/dL 03/20/16 03/20/16 03/20/16 Range/Units 01:04 03:05 04:05 WBC (3.8-10.6) k/uL RBC (3.80-5.40) m/uL Hgb (11.4-16.0) gm/dL Hct (34.0-46.0) % MCHC (31.0-37.0) g/dL RDW (11.5-15.5) % Neutrophils # (1.3-7.7) k/uL Lymphocytes # (1.0-4.8) k/uL Potassium (3.5-5.1) mmol/L BUN (7-17) mg/dL Glucose (74-99) mg/dL POC Glucose (mg/dL) 148 H 121 H 139 H (75-99) mg/dL 03/20/16 03/20/16 03/20/16 Range/Units 05:58 08:20 08:20 WBC 18.5 H (3.8-10.6) k/uL RBC 2.94 L (3.80-5.40) m/uL Hgb 7.9 L (11.4-16.0) gm/dL Hct 26.4 L (34.0-46.0) % MCHC 29.8 L (31.0-37.0) g/dL RDW 15.8 H (11.5-15.5) % Neutrophils # 17.3 H (1.3-7.7) k/uL Lymphocytes # 0.6 L (1.0-4.8) k/uL Potassium 5.3 H (3.5-5.1) mmol/L BUN 33 H (7-17) mg/dL Glucose 151 H (74-99) mg/dL POC Glucose (mg/dL) 185 H (75-99) mg/dL 03/20/16 Range/Units 08:25 WBC (3.8-10.6) k/uL RBC (3.80-5.40) m/uL Hgb (11.4-16.0) gm/dL Hct (34.0-46.0) % MCHC (31.0-37.0) g/dL RDW (11.5-15.5) % Neutrophils # (1.3-7.7) k/uL Lymphocytes # (1.0-4.8) k/uL Potassium (3.5-5.1) mmol/L BUN (7-17) mg/dL Glucose (74-99) mg/dL POC Glucose (mg/dL) 146 H (75-99) mg/dL Assessment and Plan Plan: Impression: #1 Acute exacerbation of chronic obstructive pulmonary disease. #2 Morbid obesity with severe restrictive lung disease. #3 Chronic bronchial asthma. #4 Obstructive sleep apnea, maintained on CPAP in the outpatient setting. #5 Chronic paroxysmal atrial fibrillation, anticoagulated with warfarin. #6 Chronic hypoxic respiratory failure secondary to chronic obstructive pulmonary disease maintained on oxygen. #7 Diabetes mellitus. #8 Hyperlipidemia. #9 Large anterior abdominal wall incisional hernia. Plan: The patient was seen and evaluated by Dr. Rubalcava. She is stable from the pulmonary standpoint and could be discharged home on her usual pulmonary medications including a prednisone taper. She can follow-up in our office in 1- 2 weeks' time. She is encouraged to call sooner with any recurrence of symptoms or other questions or concerns.
--- NOTE | 2016-03-20 16:08 | P.PN ---
Subjective Principal diagnosis: Acute exacerbation of COPD Patient is a 65-year-old female with medical history significant for asthma, COPD, urinary tract infection, atrial fibrillation, obstructive sleep apnea maintained on CPAP on an outpatient basis, morbid obesity, diabetes mellitus type 2, large anterior abdominal wall hernia, chronic back pain with lumbar radiculopathy, generalized anxiety, chronic hypoxic respiratory failure on home O2 at 4 L [id number], hypertension, anemia, and renal insufficiency. Patient presented to the emergency department with complaints of difficulty breathing 2 days. Patient denied any other symptoms except getting more short of breath lately. Admission EKG with atrial fibrillation and nonspecific T-wave abnormality. Admission chest x-ray with evidence of cardiomegaly and possible atelectasis of the right perihilar region. Labs on admission hemoglobin 8.7, INR 1.8, magnesium 1.5, NT proBNP 1760. Patient with clinical findings of expiratory wheezing. Patient was admitted to the medical floor with the impression of acute exacerbation of chronic obstructive airways disease for antibiotics and steroid treatment. Consults requested for Dr. Rubalcava for pulmonary service and cardiology for history of heart failure and atrial fibrillation. Upon examination, patient reports improvement in breathing. Patient denies chills, nausea, vomiting, cough, chest pain, abdominal pain, or leg swelling. Patient reports good appetite. Afebrile. Hemodynamically stable. Objective - Vital Signs Vital signs: Vital Signs Temp 97.3 F L 03/20/16 07:00 Pulse 92 03/20/16 12:16 Resp 24 03/20/16 07:00 BP 151/68 03/20/16 07:00 Pulse Ox 96 03/20/16 08:15 Intake & Output 03/19/16 03/20/16 03/20/16 18:59 06:59 18:59 Intake Total 12.75 431.483 496.500 Balance 12.75 431.483 496.500 Intake: Intake, IV Titration 12.75 31.483 16.500 Amount Insulin Regular 100 unit 12.75 31.483 16.500 In Sodium Chloride 0.9% 100 ml @ Titrate IV .Q0M [facility] Rx#:[id number] Oral 400 480 Other: Voiding Method Bedside Commode # Voids 4 2 - Exam GENERAL: Pt awake and alert, well-appearing, well-nourished, and in no acute distress. HEAD: Atraumatic, normocephalic. EYES: Pupils equal, round, and reactive to light, extraocular movements intact, sclera anicteric, conjunctiva are normal. ENT: Moist mucous membranes. NECK:Normal range of motion, supple without lymphadenopathy or JVD. No carotid bruits. Thyroid midline, small and firm without palpable masses. LUNGS: Breath sounds diminished to auscultation bilaterally. Mild expiratory wheezing. HEART: Heart S1, S2, no S3 or S4. Irregularly irregular. No murmurs, rubs or gallops. ABDOMEN: Soft, morbidly obese, nontender, nondistended, normoactive bowel sounds. No guarding, no rebound. Large incisional hernia present. EXTREMITIES: 2+ peripheral pulses. No edema. No calf tenderness. NEUROLOGICAL: Pt oriented x 3. Cranial nerves II through XII grossly intact. Strength and sensation grossly intact. PSYCH: Normal mood, normal affect. SKIN: Warm, dry, intact. Normal turgor. No rashes or lesions. - Labs CBC & Chem 7: 03/20/16 08:20 03/20/16 08:20 Labs: Abnormal Lab Results - Last 24 Hours (Table) 03/19/16 03/19/16 03/19/16 Range/Units 16:42 17:44 18:31 WBC (3.8-10.6) k/uL RBC (3.80-5.40) m/uL Hgb (11.4-16.0) gm/dL Hct (34.0-46.0) % MCHC (31.0-37.0) g/dL RDW (11.5-15.5) % Neutrophils # (1.3-7.7) k/uL Lymphocytes # (1.0-4.8) k/uL Potassium (3.5-5.1) mmol/L BUN (7-17) mg/dL Glucose (74-99) mg/dL POC Glucose (mg/dL) 245 H 169 H 135 H (75-99) mg/dL 03/19/16 03/19/16 03/19/16 Range/Units 20:03 20:59 22:55 WBC (3.8-10.6) k/uL RBC (3.80-5.40) m/uL Hgb (11.4-16.0) gm/dL Hct (34.0-46.0) % MCHC (31.0-37.0) g/dL RDW (11.5-15.5) % Neutrophils # (1.3-7.7) k/uL Lymphocytes # (1.0-4.8) k/uL Potassium (3.5-5.1) mmol/L BUN (7-17) mg/dL Glucose (74-99) mg/dL POC Glucose (mg/dL) 129 H 162 H 219 H (75-99) mg/dL 03/20/16 03/20/16 03/20/16 Range/Units 01:04 03:05 04:05 WBC (3.8-10.6) k/uL RBC (3.80-5.40) m/uL Hgb (11.4-16.0) gm/dL Hct (34.0-46.0) % MCHC (31.0-37.0) g/dL RDW (11.5-15.5) % Neutrophils # (1.3-7.7) k/uL Lymphocytes # (1.0-4.8) k/uL Potassium (3.5-5.1) mmol/L BUN (7-17) mg/dL Glucose (74-99) mg/dL POC Glucose (mg/dL) 148 H 121 H 139 H (75-99) mg/dL 03/20/16 03/20/16 03/20/16 Range/Units 05:58 08:20 08:20 WBC 18.5 H (3.8-10.6) k/uL RBC 2.94 L (3.80-5.40) m/uL Hgb 7.9 L (11.4-16.0) gm/dL Hct 26.4 L (34.0-46.0) % MCHC 29.8 L (31.0-37.0) g/dL RDW 15.8 H (11.5-15.5) % Neutrophils # 17.3 H (1.3-7.7) k/uL Lymphocytes # 0.6 L (1.0-4.8) k/uL Potassium 5.3 H (3.5-5.1) mmol/L BUN 33 H (7-17) mg/dL Glucose 151 H (74-99) mg/dL POC Glucose (mg/dL) 185 H (75-99) mg/dL 03/20/16 Range/Units 08:25 WBC (3.8-10.6) k/uL RBC (3.80-5.40) m/uL Hgb (11.4-16.0) gm/dL Hct (34.0-46.0) % MCHC (31.0-37.0) g/dL RDW (11.5-15.5) % Neutrophils # (1.3-7.7) k/uL Lymphocytes # (1.0-4.8) k/uL Potassium (3.5-5.1) mmol/L BUN (7-17) mg/dL Glucose (74-99) mg/dL POC Glucose (mg/dL) 146 H (75-99) mg/dL Assessment and Plan Plan: Impression and plan: 1. Acute exacerbation of COPD. Pulmonology consult requested, recommendations noted. Continue DuoNeb updrafts. Continue PO Lasix. Continue methylprednisolone. Continue supplemental oxygen. Continue Zithromax. From a pulmonary standpoint, patient is stable for discharge to home with follow-up in office on a tapered steroid pack. 2. Chronic bronchial asthma. Continue Singulair. 3. Chronic atrial fibrillation. INR 1.6. Cardiology consult requested, recommendations pending for anticoagulation. Continue verapamil. 4. Obstructive sleep apnea maintained on CPAP on outpatient basis. 5. Diabetes mellitus type 2, uncontrolled. Hemoglobin A1c 7.1. Start patient on Lantus and Humalog sliding scale per protocol. 6. Large anterior abdominal wall hernia. Continue to monitor. 7. History of chronic back pain with lumbar radiculopathy. Continue pain management as needed. 8. Generalized anxiety. Continue Zoloft. 9. Chronic hypoxic respiratory failure on home O2 at 3-4 L [id number]. Continue supplemental oxygen. 10. Hypertension. 11. Anemia, normocytic, normochromic suspect secondary to chronic disease. 12. Super morbid obesity. BMI 50.6. 13. Chronic diastolic congestive heart failure. last echocardiogram with Doppler with an EF between 50-55% and moderate pulmonary hypertension. 14. Leukocytosis, suspect steroid-induced. Repeat CBC in a.m. 15. DVT prophylaxis. pneumatic compression sleeves to bilateral lower extremities. 15. GI prophylaxis. Continue Pepcid. 16. Repeat CBC, BMP, PT/INR in a.m. We will ask psychiatry to evaluate patient prior to discharge to determine whether she's able to make good judgments or possibly need a legal guardian. Again there is concern that patient is not taking prescribed medications and needs subacute rehab on discharge or possible group home placement. The above impression and plan have been discussed and directed by Dr. Tompkins. Christina RANKIN acting as scribe for Dr. Tompkins.
[2016-03-20 17:15] LABS: Glucose,Whole Blood 207 mg/dL (75-99)
[2016-03-20] MEDS: methylPREDNISolone SOD SUCCI 40 MG/ML 1 ML VIAL IV SCH (17:38)
[2016-03-20] MEDS ORDERED: INSULIN GLARGINE 100 UNIT/ML 10 ML VIAL SQ SCH (21:00)
[2016-03-20] MEDS: SERTRALINE 50 MG TAB PO SCH (21:18)
[2016-03-20] MEDS: ATORVASTATIN 80 MG TAB PO SCH (21:18)
[2016-03-20] MEDS: MONTELUKAST 10 MG TAB PO SCH (21:18)
[2016-03-20 21:28] LABS: Glucose,Whole Blood 245 mg/dL (75-99)
[2016-03-21] MEDS: methylPREDNISolone SOD SUCCI 40 MG/ML 1 ML VIAL IV SCH ×2 (00:29→07:49)
[2016-03-21 07:37] LABS: Glucose,Whole Blood 212 mg/dL (75-99)
[2016-03-21] MEDS: INSULIN LISPRO (humaLOG) 300 UNIT/3 ML VIAL SQ SCH ×6 (07:46→17:48)
[2016-03-21] MEDS: ASPIRIN 325 MG TAB PO SCH (07:51)
[2016-03-21] MEDS: AZITHROMYCIN 500 MG TAB PO SCH (07:51)
[2016-03-21] MEDS: CLOPIDOGREL 75 MG TAB PO SCH (07:51)
[2016-03-21] MEDS: FUROSEMIDE 40 MG TAB PO SCH (07:52)
[2016-03-21] MEDS: metFORMIN 500 MG TAB PO SCH (07:52)
[2016-03-21] MEDS: POTASSIUM CHLORIDE ER 20 MEQ TAB.ER PO SCH (07:52)
[2016-03-21] MEDS: FAMOTIDINE 20 MG TAB PO SCH (07:52)
[2016-03-21] MEDS: VERAPAMIL 80 MG TAB PO SCH ×2 (07:53→17:47)
[2016-03-21] MEDS: IPRATROPIUM-ALBUTEROL 3 ML NEB INHALATION SCH ×3 (07:59→15:45)
[2016-03-21] MEDS: SYMBICORT 160-4.5 MCG INHALER INHALATION SCH (08:00)
[2016-03-21 08:02] VITALS: RESP 18
[2016-03-21 09:10] LABS: Basophils % (A) 0 %; CH 27.5; CHCM 29.9; Eosinophils % (A) 0 %; HCT 29.2 % (34.0-46.0); HDW 2.99; HGB 8.6 gm/dL (11.4-16.0); Hypochromasia Marked; Luc # (Auto) 0.08; Luc % (Auto) 0; Lymphocytes # (A) 0.6 k/uL (1.0-4.8); Lymphocytes % (A) 3 %; MCH 27.4 pg (25.0-35.0); MCHC 29.5 g/dL (31.0-37.0); MCV 92.6 fL (80.0-100.0); Mean Platelet Volume 8.1; Monocytes # (A) 0.8 k/uL (0-1.0); Monocytes % (A) 4 %; Neutrophils # (A) 17.3 k/uL (1.3-7.7); Neutrophils % (A) 92 %; RBC 3.15 m/uL (3.80-5.40); WBC 18.8 k/uL (3.8-10.6)
[2016-03-21 09:31] LABS: Anion Gap 16 mmol/L; Blood Urea Nitrogen 43 mg/dL (7-17); Calcium 9.9 mg/dL (8.4-10.2); Carbon Dioxide 26 mmol/L (22-30); Chloride 96 mmol/L (98-107); Glucose 276 mg/dL (74-99); Non-African American GFR(MDRD) 51 (>60 ml/min/1.73 sqM); Potassium 5.3 mmol/L (3.5-5.1); Sodium 138 mmol/L (137-145)
--- NOTE | 2016-03-21 11:52 | P.PN ---
Subjective This is a pleasant 65-year-old female patient who follows with Dr. Taylor as her primary care physician. She has a history of diabetes mellitus, atrial fibrillation, chronic obstructive pulmonary disease. She presented here on 05/2016 with complaints of increasing shortness of breath cough and congestion. She is seen again today in follow-up. She is awake and alert in no acute distress. She is been treated for COPD exacerbation. There is no clear evidence of pneumonia. She is seen again today 03/21/2015 in follow-up. She is awake and alert in no acute distress. She is breathing better today as compared to yesterday. She has been maintained on bronchodilators, Symbicort, IV Solu-Medrol and empiric antibiotics. Objective - Vital Signs Vital signs: Vital Signs Temp 96.9 F L 03/21/16 07:00 Pulse 80 03/21/16 08:00 Resp 18 03/21/16 07:00 BP 127/56 03/21/16 07:00 Pulse Ox 97 03/21/16 08:03 - Exam GENERAL EXAM: Alert, active, comfortable in no apparent distress. HEAD: Normocephalic. EYES: Normal reaction of pupils, equal size. NOSE: Clear with pink turbinates. THROAT: No erythema or exudates. NECK: No masses, no JVD. CHEST: No chest wall deformity. LUNGS: Equal air entry with no crackles, wheeze, rhonchi or dullness. CVS: S1 and S2 normal with no audible murmurs, regular rhythm. ABDOMEN: Large abdominal wall incisional hernia. Obese, normal bowel sounds, no guarding or rigidity. Extremities: There is trace peripheral edema. No clubbing, no cyanosis. Peripheral pulses are intact. - Labs CBC & Chem 7: 03/21/16 08:18 03/21/16 08:18 Assessment and Plan Plan: Impression: #1 Acute exacerbation of chronic obstructive pulmonary disease. #2 Morbid obesity with severe restrictive lung disease. #3 Chronic bronchial asthma. #4 Obstructive sleep apnea, maintained on CPAP in the outpatient setting. #5 Chronic paroxysmal atrial fibrillation, anticoagulated with warfarin. #6 Chronic hypoxic respiratory failure secondary to chronic obstructive pulmonary disease maintained on oxygen. #7 Diabetes mellitus. #8 Hyperlipidemia. #9 Large anterior abdominal wall incisional hernia. Plan: The patient was seen and evaluated by Dr. Rubalcava. We'll continue with her current medications. We'll discontinue the IV Solu-Medrol and switch her to a prednisone taper. We'll utilize the steroids cautiously as the patient has some questionable psychiatric issues and is pending a psychiatric evaluation. We'll follow the patient on as-needed basis.
[2016-03-21 12:00] LABS: Glucose,Whole Blood 258 mg/dL (75-99)
--- NOTE | 2016-03-21 12:07 | P.CON ---
Psychiatric Consult - . Consult:: 03/21/16 11:56 Psychiatric consultation notes. Mrs. Moses is a 65-year-old white female who was seen on psychiatric evaluation and per RN, it just to evaluate whether patient can go to her own home or would she be in need of extended care facility. There were some questions whether patient was heard talking to herself and whether these behaviors are secondary to some psychotic symptoms or responding to hallucinations. When seen patient was quite alert cooperative and fairly pleasant and indicated that people might consider her as mean as she has nobody to for herself other than her. She was originally from [place] and has dual citizenship . Her nephew and his are living with her and help her manage the household and take care of things and did be done. Neither of them are working and according to her [place] Patient has a cat and a dog and whenever she is away they miss her and she misses them. 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 Patient is concerned that her healthcare provider team is considering to place her in an extended care facility and she absolutely refuses to comply with it. On direct inquiry being she acknowledges that she is depressed and anxious over her physical condition and missing her quite a bit. They were more than 40 years and he approximately 6 months ago. Patient is still in bereavement over his . Denies ever having had any psychiatric problems in the past. Generally sleeps well and has adequate appetite. Patient wants to be sleeping now grown bed which she had shared with her all these years and her desire is to in her own bed Mental status. Patient is an obese built white female with significant facial hairs, in hospital clothes and was cooperative during the evaluation. Patient was appropriately responding to questions, relevant and coherent. Her speech and thought process did not show any abnormal traits. Patient was appropriate in her affect and her mood was fairly euthymic. Denies any depressive or anxiety trends other than over her loss of her and the current physical problems she is experiencing. She claims she is capable of taking care of herself at home with the help of her nephew and his . Patient is oriented to time place and person, and her memory functions are intact. General Information also intact. No evidence of any impairment in insight and judgment. Based on today's evaluation patient is not in need of any active psychiatric treatment and couldn't function well at home. Thank you for the referral.
[2016-03-21 15:59] VITALS: BP 152/60; TEMP 96.6
[2016-03-21 17:13] VITALS: PULSE 80
--- NOTE | 2016-03-21 17:31 | P.DS ---
Providers Date of admission: 03/21/16 09:10 Expected date of discharge: 03/21/16 Attending physician: Bhavik Tompkins Consults: Dr. Rubalcava for pulmonary service, psychiatry service, cardiology service Primary care physician: [facility] Course: Patient is a 65-year-old female with medical history significant for asthma, COPD, urinary tract infection, atrial fibrillation, obstructive sleep apnea maintained on CPAP on an outpatient basis, morbid obesity, diabetes mellitus type 2, large anterior abdominal wall hernia, chronic back pain with lumbar radiculopathy, generalized anxiety, chronic hypoxic respiratory failure on home O2 at 4 L [id number], hypertension, anemia, and renal insufficiency. Patient presented to the emergency department with complaints of difficulty breathing 2 days. Patient denied any other symptoms except getting more short of breath lately. Admission EKG with atrial fibrillation and nonspecific T-wave abnormality. Admission chest x-ray with evidence of cardiomegaly and possible atelectasis of the right perihilar region. Labs on admission hemoglobin 8.7, INR 1.8, magnesium 1.5, NT proBNP 1760. Patient with clinical findings of expiratory wheezing. Patient was admitted to the medical floor with the impression of acute exacerbation of chronic obstructive airways disease for antibiotics and steroid treatment. Consults requested for Dr. Rubalcava for pulmonary service and cardiology for history of heart failure and atrial fibrillation. Patient improved with Zithromax and steroid taper. Patient was evaluated by cardiology who recommends that patient receive anticoagulation such as one of the newer anticoagulants or Coumadin for chronic atrial fibrillation. Dr. Tompkins to address anticoagulation in outpatient setting. Patient was started on Lantus for uncontrolled diabetes mellitus and will follow-up in the outpatient setting. Patient was evaluated by psychiatry service for possible need of legal guardian. Per psychiatrist, patient is not in need of any active psychiatric treatment with no impairment in insight or judgment. Patient was found stable to be discharged to home with home care. Patient instructed to follow-up with Dr. Tompkins early next week. Patient verbalized understanding and agrees to treatment plan. Discharge diagnoses: 1. Acute exacerbation of COPD. 2. Chronic bronchial asthma. 3. Chronic atrial fibrillation. 4. Obstructive sleep apnea maintained on CPAP on outpatient basis. 5. Diabetes mellitus type 2, uncontrolled. 6. Large anterior abdominal wall hernia. 7. History of chronic back pain with lumbar radiculopathy. 8. Generalized anxiety. 9. Chronic hypoxic respiratory failure on home O2 at 3-4 L [id number]. 10. Hypertension. 11. Anemia, normocytic, normochromic suspect secondary to chronic disease. 12. Super morbid obesity. 13. Chronic diastolic congestive heart failure. 14. Leukocytosis, suspect steroid-induced. The above impression and plan have been discussed and directed by Dr. Tompkins. Christina RANKIN acting as scribe for Dr. Tompkins. Pertinent Studies: EKG; chest x-ray Patient Condition at Discharge: Good Plan - Discharge Summary New Discharge Prescriptions: Insulin Glargine [Lantus] 50 unit SQ HS #5 pen predniSONE 0 mg PO DIRECTED #18 tab Discharge Medication List Sertraline [Zoloft] 50 mg PO HS 01/17/14 [History] Montelukast Sodium [Singulair] 10 mg PO HS 10/10/15 [History] Cyclobenzaprine [Flexeril] 10 mg PO TID PRN 03/04/16 [History] Famotidine [Pepcid] 20 mg PO QAM 03/04/16 [History] Furosemide [Lasix] 40 mg PO QAM 03/04/16 [History] Ipratropium-Albuterol Nebulize [Duoneb 0.5 mg-3 mg/3 ml Soln] 3 ml INHALATION RT -QID PRN 03/04/16 [History] Potassium Chloride ER [K-Dur 20] 20 meq PO QAM 03/04/16 [History] metFORMIN HCL 1,000 mg PO BID 03/04/16 [History] Atorvastatin [Lipitor] 80 mg PO HS #30 tab 03/07/16 [Rx] Aspirin 325 mg PO DAILY 03/18/16 [History] Clopidogrel [Plavix] 75 mg PO DAILY 03/18/16 [History] Verapamil [Isoptin] 80 mg PO TID 03/18/16 [History] Insulin Glargine [Lantus] 50 unit SQ HS #5 pen 03/21/16 [Rx] predniSONE 0 mg PO DIRECTED #18 tab 03/21/16 [Rx] Follow up Appointment(s)/Referral(s): [facility], [NON-STAFF] - John Taylor MD [Primary Care Provider] - 03/26/16 1:00 pm Patient Instructions/Handouts: Type 2 Diabetes in Adults (DC), COPD (Chronic Obstructive Pulmonary Disease) (ED) Activity/Diet/Wound Care/Special Instructions: Please follow-up with Dr. Tompkins. Please flower buncher or picker prescriptions in [facility]. Discharge Disposition: HOME WITH HOME HEALTH SERVICES
[2016-03-22] MEDS ORDERED: predniSONE 10 MG TAB PO SCH (09:00)
== END 2016-03-21 17:40 | disposition home health service (06) | DRG 191 ==
LOC: EC 13:46 → 4MS4W 18:58 → OBSVTOIN 03-21 09:10
PROVIDERS: ADMIT Family Medicine; ATTEND Family Medicine
DX: J44.1 Chronic obstructive pulmonary disease with (acute) exacerbation (principal); I50.32 Chronic diastolic (congestive) heart failure; J96.11 Chronic respiratory failure with hypoxia; I27.2 Other secondary pulmonary hypertension; E11.65 Type 2 diabetes mellitus with hyperglycemia; I11.0 Hypertensive heart disease with heart failure; I50.9 Heart failure, unspecified; Z68.43 Body mass index [BMI] 50.0-59.9, adult; Z99.81 Dependence on supplemental oxygen; I48.2 Chronic atrial fibrillation; G47.33 Obstructive sleep apnea (adult) (pediatric); T38.0X5A Adverse effect of glucocorticoids and synthetic analogues, initial encounter; J45.909 Unspecified asthma, uncomplicated; D63.8 Anemia in other chronic diseases classified elsewhere; J98.4 Other disorders of lung; N28.9 Disorder of kidney and ureter, unspecified; I48.0 Paroxysmal atrial fibrillation; E66.01 Morbid (severe) obesity due to excess calories; M54.16 Radiculopathy, lumbar region; E78.5 Hyperlipidemia, unspecified; K43.2 Incisional hernia without obstruction or gangrene; N28.1 Cyst of kidney, acquired; F32.9 Major depressive disorder, single episode, unspecified; G89.29 Other chronic pain; D72.829 Elevated white blood cell count, unspecified; F41.1 Generalized anxiety disorder; R11.0 Nausea; R53.1 Weakness; Z98.49 Cataract extraction status, unspecified eye; Z79.82 Long term (current) use of aspirin; Z86.11 Personal history of tuberculosis; Z63.4 Disappearance and death of family member; Z87.440 Personal history of urinary (tract) infections; Z91.048 Other nonmedicinal substance allergy status; Z79.84 Long term (current) use of oral hypoglycemic drugs; Z79.02 Long term (current) use of antithrombotics/antiplatelets; Z79.899 Other long term (current) drug therapy; Z77.22 Contact with and (suspected) exposure to environmental tobacco smoke (acute) (chronic); Z88.5 Allergy status to narcotic agent; Z82.3 Family history of stroke
CPT/HCPCS: 36415; 71020; 80048; 80053; 82550; 82553; 83036; 83735; 83880; 84484; 85025; 85610; 85730; 87040; 93005; 94640; 94760; 96361; 96365; 96366; 96367; 96374; 96376; 99285

== ENCOUNTER 2016-03-22 12:55 | Inpatient (IN) | payer MEDICARE ==
[2016-03-22] MEDS ORDERED: MAGNESIUM SULFATE-D5W PMX 1 GM in DEXTROSE/WATER 1 100ML.BAG IVPB STA (12:59)
[2016-03-22] MEDS ORDERED: methylPREDNISolone SOD SUCCI 125 MG/2 ML VIAL IV STA (12:59)
--- NOTE | 2016-03-22 13:19 | ED ---
SOB HPI - General Stated Complaint: AIDAN Time Seen by Provider: 03/22/16 12:55 Source: patient, EMS, RN notes reviewed, old records reviewed Mode of arrival: EMS - History of Present Illness Initial Comments: Is a 65-year-old female who was just discharged from the hospital yesterday who is back today complaining shortness of breath this started this morning when she woke up. She denies any fevers chills or sweats no chest pain shortness of breath. She did call EMS she was given a DuoNeb and route which did seem to help. She has no other complaints such as chest pain or other symptoms at this time. MD Complaint: shortness of breath - Related Data Home Medications Medication Instructions Recorded Confirmed Sertraline [Zoloft] 50 mg PO HS 01/17/14 03/22/16 Montelukast Sodium [Singulair] 10 mg PO HS 10/10/15 03/22/16 Cyclobenzaprine [Flexeril] 10 mg PO TID PRN 03/04/16 03/22/16 Famotidine [Pepcid] 20 mg PO QAM 03/04/16 03/22/16 Furosemide [Lasix] 40 mg PO QAM 03/04/16 03/22/16 Ipratropium-Albuterol Nebulize 3 ml INHALATION RT-QID PRN 03/04/16 03/22/16 [Duoneb 0.5 mg-3 mg/3 ml Soln] Potassium Chloride ER [K-Dur 20] 20 meq PO QAM 03/04/16 03/22/16 metFORMIN HCL 1,000 mg PO BID 03/04/16 03/22/16 Aspirin 325 mg PO DAILY 03/18/16 03/22/16 Clopidogrel [Plavix] 75 mg PO DAILY 03/18/16 03/22/16 Verapamil [Isoptin] 80 mg PO TID 03/18/16 03/22/16 predniSONE See Taper PO DIRECTED 03/22/16 03/22/16 Previous Rx's Medication Instructions Recorded Atorvastatin [Lipitor] 80 mg PO HS #30 tab 03/07/16 Insulin Glargine [Lantus] 50 unit SQ HS #5 pen 03/21/16 Allergies Allergy/AdvReac Type Severity Reaction Status Date / Time adhesive Allergy Rash/Hives Verified 03/22/16 13:43 codeine AdvReac Nausea & Verified 03/22/16 13:43 Vomiting Review of Systems ROS Statement: Those systems with pertinent positive or pertinent negative responses have been documented in the HPI. ROS Other: All systems not noted in ROS Statement are negative. 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 Chronic atrial fibrillation, chronic restrictive and obstructive lung disease secondary to morbid obesity and underlying bronchial asthma, chronic anemia History of Any Multi-Drug Resistant Organisms: None Reported Past Surgical History: Breast Surgery, Hernia Repair Additional Past Surgical History / Comment(s): cataracts Past Anesthesia/Blood Transfusion Reactions: No Reported Reaction Past Psychological History: Anxiety Smoking Status: Never smoker Past Alcohol Use History: None Reported Past Drug Use History: None Reported - Past Family History Mother Family Medical History: CVA/TIA General Exam - General Exam Comments Initial Comments: This is a well-developed well-nourished awake alert oriented x3 female General appearance: alert, in no apparent distress Head exam: Present: atraumatic, normocephalic, normal inspection Eye exam: Present: normal appearance, PERRL, EOMI. Absent: scleral icterus, conjunctival injection, periorbital swelling ENT exam: Present: normal exam, mucous membranes moist Neck exam: Present: normal inspection. Absent: tenderness, meningismus, lymphadenopathy Respiratory exam: Present: decreased breath sounds. Absent: respiratory distress, wheezes, rales, rhonchi, stridor Cardiovascular Exam: Present: regular rate, normal rhythm, normal heart sounds. Absent: systolic murmur, diastolic murmur, rubs, gallop, clicks GI/Abdominal exam: Present: soft, normal bowel sounds. Absent: distended, tenderness, guarding, rebound, rigid Extremities exam: Present: normal inspection, full ROM, normal capillary refill. Absent: tenderness, pedal edema, joint swelling, calf tenderness Back exam: Present: normal inspection Neurological exam: Present: alert, oriented X3, CN II-XII intact Psychiatric exam: Present: normal affect, normal mood Skin exam: Present: warm, dry, intact, normal color. Absent: rash Course Vital Signs 03/22/16 03/22/16 03/22/16 12:55 13:49 14:45 Temperature 96.9 F L 98.6 F Pulse Rate 60 113 H 66 Respiratory 18 18 18 Rate Blood Pressure 159/68 161/69 147/63 O2 Sat by Pulse 99 96 99 Oximetry 03/22/16 16:00 Temperature 97.5 F L Pulse Rate 86 Respiratory 18 Rate Blood Pressure 150/67 O2 Sat by Pulse 95 Oximetry - Reevaluation(s) Reevaluation #1: 03/22/16 17:01 Reevaluation the patient after initial treatment revealed minimal improvement. Reevaluation #2: 03/22/16 17:02 The patient still feels dyspneic. She has responded somewhat to therapy. Medical Decision Making - Medical Decision Making I did a long discussion with the patient regarding the findings I did discuss the case Dr. Mora. I did review the old charting the previous admission. Patient will be admitted for failure to thrive and outpatient failure she will need to be placed in a correction as she has no support at home. She is unable care for herself. - Lab Data Result diagrams: 03/22/16 13:40 03/22/16 13:40 Lab Results 03/22/16 03/22/16 03/22/16 Range/Units 13:40 13:40 13:40 WBC 14.9 H (3.8-10.6) k/uL RBC 3.53 L (3.80-5.40) m/uL Hgb 9.7 L (11.4-16.0) gm/dL Hct 31.2 L (34.0-46.0) % MCV 88.4 (80.0-100.0) fL MCH 27.4 (25.0-35.0) pg MCHC 31.1 (31.0-37.0) g/dL RDW 15.9 H (11.5-15.5) % Plt Count 317 (150-450) k/uL Neutrophils % 89 % Lymphocytes % 6 % Monocytes % 3 % Eosinophils % 1 % Basophils % 0 % Neutrophils # 13.3 H (1.3-7.7) k/uL Lymphocytes # 0.8 L (1.0-4.8) k/uL Monocytes # 0.5 (0-1.0) k/uL Eosinophils # 0.1 (0-0.7) k/uL Basophils # 0.0 (0-0.2) k/uL Hypochromasia Moderate PT (9.0-12.0) sec INR (<1.1) APTT (22.0-30.0) sec D-Dimer (<0.60) mg/L FEU Sodium 139 (137-145) mmol/L Potassium 4.9 (3.5-5.1) mmol/L Chloride 98 (98-107) mmol/L Carbon Dioxide 29 (22-30) mmol/L Anion Gap 12 mmol/L BUN 41 H (7-17) mg/dL Creatinine 0.90 (0.52-1.04) mg/dL Est GFR (MDRD) Af Amer >60 (>60 ml/min/1.73 sqM) Est GFR (MDRD) Non-Af >60 (>60 ml/min/1.73 sqM) Glucose 169 H (74-99) mg/dL Calcium 9.9 (8.4-10.2) mg/dL Magnesium 1.8 (1.6-2.3) mg/dL Total Bilirubin 0.8 (0.2-1.3) mg/dL AST 25 (14-36) U/L ALT 40 (9-52) U/L Alkaline Phosphatase 77 (38-126) U/L Total Creatine Kinase 28 L (30-135) U/L CK-MB (CK-2) 1.2 (0.0-2.4) ng/mL CK-MB (CK-2) Rel Index 4.3 Troponin I 0.020 (0.000-0.034) ng/mL NT-Pro-B Natriuret Pep pg/mL Total Protein 6.4 (6.3-8.2) g/dL Albumin 3.9 (3.5-5.0) g/dL 03/22/16 03/22/16 Range/Units 13:40 13:40 WBC (3.8-10.6) k/uL RBC (3.80-5.40) m/uL Hgb (11.4-16.0) gm/dL Hct (34.0-46.0) % MCV (80.0-100.0) fL MCH (25.0-35.0) pg MCHC (31.0-37.0) g/dL RDW (11.5-15.5) % Plt Count (150-450) k/uL Neutrophils % % Lymphocytes % % Monocytes % % Eosinophils % % Basophils % % Neutrophils # (1.3-7.7) k/uL Lymphocytes # (1.0-4.8) k/uL Monocytes # (0-1.0) k/uL Eosinophils # (0-0.7) k/uL Basophils # (0-0.2) k/uL Hypochromasia PT 11.5 (9.0-12.0) sec INR 1.2 (<1.1) APTT 22.9 (22.0-30.0) sec D-Dimer 1.36 H (<0.60) mg/L FEU Sodium (137-145) mmol/L Potassium (3.5-5.1) mmol/L Chloride (98-107) mmol/L Carbon Dioxide (22-30) mmol/L Anion Gap mmol/L BUN (7-17) mg/dL Creatinine (0.52-1.04) mg/dL Est GFR (MDRD) Af Amer (>60 ml/min/1.73 sqM) Est GFR (MDRD) Non-Af (>60 ml/min/1.73 sqM) Glucose (74-99) mg/dL Calcium (8.4-10.2) mg/dL Magnesium (1.6-2.3) mg/dL Total Bilirubin (0.2-1.3) mg/dL AST (14-36) U/L ALT (9-52) U/L Alkaline Phosphatase (38-126) U/L Total Creatine Kinase (30-135) U/L CK-MB (CK-2) (0.0-2.4) ng/mL CK-MB (CK-2) Rel Index Troponin I (0.000-0.034) ng/mL NT-Pro-B Natriuret Pep 5790 pg/mL Total Protein (6.3-8.2) g/dL Albumin (3.5-5.0) g/dL - EKG Data -: EKG Interpreted by Me (Atrial fibrillation with a rate of 1:30 QRS duration 82 daily since QTC of ) - Radiology Data Radiology results: report reviewed (X-ray is reviewed and reveals evidence of CHF exacerbation with cardiomegaly.), image reviewed Critical Care Time Critical Care Time: Yes Critical Care Time: 35 minutes of critical care time which includes initial review and evaluation of the EMS run and discussed with paramedics. This discussion with the patient with history physical lab and x-rays. Reevaluation patient multiple occasions. Discussion with the admitting physician. Documentation above and admission orders. Patient is in atrial fibrillation she appears to have settled down to approximately 100 bpm Cardizem will be held at this time. Disposition Clinical Impression: Congestive heart failure (CHF), Atrial fibrillation with RVR, Failure to thrive syndrome, adult, Failure of outpatient treatment Disposition: ADMITTED IP TO THIS [facility] Condition: Stable
[2016-03-22 14:00] LABS: Basophils % (A) 0 %; CH 27.5; CHCM 31.2; Eosinophils # (A) 0.1 k/uL (0-0.7); Eosinophils % (A) 1 %; HCT 31.2 % (34.0-46.0); HGB 9.7 gm/dL (11.4-16.0); Hypochromasia Moderate; Luc % (Auto) 1; Lymphocytes # (A) 0.8 k/uL (1.0-4.8); Lymphocytes % (A) 6 %; MCH 27.4 pg (25.0-35.0); MCHC 31.1 g/dL (31.0-37.0); MCV 88.4 fL (80.0-100.0); Mean Platelet Volume 7.3; Monocytes # (A) 0.5 k/uL (0-1.0); Monocytes % (A) 3 %; Neutrophils # (A) 13.3 k/uL (1.3-7.7); Neutrophils % (A) 89 %; RBC 3.53 m/uL (3.80-5.40); RDW 15.9 % (11.5-15.5); WBC 14.9 k/uL (3.8-10.6); WBC (Perox) 16.04
[2016-03-22 14:09] LABS: ALT 40 U/L (9-52); AST 25 U/L (14-36); Alkaline Phosphatase 77 U/L (38-126); Anion Gap 12 mmol/L; Blood Urea Nitrogen 41 mg/dL (7-17); Calcium 9.9 mg/dL (8.4-10.2); Carbon Dioxide 29 mmol/L (22-30); Chloride 98 mmol/L (98-107); Glucose 169 mg/dL (74-99); Magnesium 1.8 mg/dL (1.6-2.3); Non-African American GFR(MDRD) >60 (>60 ml/min/1.73 sqM); Potassium 4.9 mmol/L (3.5-5.1); Sodium 139 mmol/L (137-145); Total Bilirubin 0.8 mg/dL (0.2-1.3); Total Protein 6.4 g/dL (6.3-8.2)
[2016-03-22 14:13] LABS: INR 1.2 (<1.1); Partial Thromboplastin Time 22.9 sec (22.0-30.0); Prothrombin Time 11.5 sec (9.0-12.0)
--- NOTE | 2016-03-22 14:14 | XR ---
EXAMINATION TYPE: XR chest 2V DATE OF EXAM: 03/22/2016 2:08 PM COMPARISON: Prior chest x-ray from 4 days earlier HISTORY: Shortness of breath today TECHNIQUE: Frontal and lateral views of the chest are obtained. FINDINGS: Exam is suboptimal secondary to patient's large body habitus. There is persistent cardiomeg sandra and suspected central vascular congestion. No large pleural effusion or pneumothorax is seen bila terally. The osseous structures are intact. IMPRESSION: Consider CHF exacerbation as there is cardiomegaly with suspected mild central vascular congestion still present. Clinical correlation advised.
[2016-03-22 14:38] LABS: Creatine Kinase MB 1.2 ng/mL (0.0-2.4); Troponin I 0.02 ng/mL (0.000-0.034)
[2016-03-22] MEDS ORDERED: NITROGLYCERIN OINT 1 INCH/GM PACKET TOPICAL STA (15:58)
[2016-03-22] MEDS ORDERED: FUROSEMIDE 10 MG/ML 4 ML VIAL IV STA (15:58)
[2016-03-22] MEDS ORDERED: DILTIAZEM 125 MG in SODIUM CHLORIDE 0.9% 100 ML IV ONE (15:59)
[2016-03-22 18:49] LABS: Hemoglobin A1C 6.4 % (4.2-6.1)
[2016-03-22] MEDS ORDERED: IPRATROPIUM-ALBUTEROL 3 ML NEB INHALATION SCH (20:00)
[2016-03-22 20:23] LABS: Glucose,Whole Blood 368 mg/dL (75-99)
[2016-03-22] MEDS: INSULIN GLARGINE 100 UNIT/ML 10 ML VIAL SQ SCH (20:43)
[2016-03-22] MEDS: metFORMIN 500 MG TAB PO SCH (20:45)
[2016-03-22] MEDS: SODIUM CHLORIDE 0.9% 1,000 ML IV SCH (20:45)
[2016-03-22] MEDS: SERTRALINE 50 MG TAB PO SCH (20:46)
[2016-03-22] MEDS: NITROGLYCERIN OINT 1 INCH/GM PACKET TOPICAL SCH ×2 (20:46→20:57)
[2016-03-22] MEDS: MONTELUKAST 10 MG TAB PO SCH (20:46)
[2016-03-22] MEDS: ATORVASTATIN 80 MG TAB PO SCH (20:46)
[2016-03-22] MEDS: VERAPAMIL 80 MG TAB PO SCH (20:47)
[2016-03-22] MEDS: INSULIN LISPRO (humaLOG) 300 UNIT/3 ML VIAL SQ SCH ×2 (21:36→21:39)
[2016-03-22] MEDS ORDERED: IPRATROPIUM-ALBUTEROL 3 ML NEB INHALATION PRN (21:45)
[2016-03-22] MEDS: HEPARIN SODIUM,PORCINE 5,000 UNIT/ML 1 ML VIAL SQ SCH (23:28)
[2016-03-23] MEDS: FUROSEMIDE 10 MG/ML 4 ML VIAL IV SCH ×3 (02:46→18:00)
[2016-03-23 06:06] LABS: Glucose,Whole Blood 119 mg/dL (75-99)
[2016-03-23] MEDS: INSULIN LISPRO (humaLOG) 300 UNIT/3 ML VIAL SQ SCH ×4 (06:34→20:29)
[2016-03-23] MEDS: metFORMIN 500 MG TAB PO SCH ×2 (06:36→18:00)
[2016-03-23] MEDS: IPRATROPIUM-ALBUTEROL 3 ML NEB INHALATION SCH ×4 (08:15→19:50)
[2016-03-23] MEDS: HEPARIN SODIUM,PORCINE 5,000 UNIT/ML 1 ML VIAL SQ SCH (08:16)
[2016-03-23] MEDS: FAMOTIDINE 20 MG TAB PO SCH (08:16)
[2016-03-23] MEDS: predniSONE 10 MG TAB PO SCH (08:16)
[2016-03-23] MEDS: ASPIRIN 325 MG TAB PO SCH (08:16)
[2016-03-23] MEDS: POTASSIUM CHLORIDE ER 20 MEQ TAB.ER PO SCH (08:16)
[2016-03-23] MEDS: VERAPAMIL 80 MG TAB PO SCH ×3 (08:16→20:29)
[2016-03-23] MEDS: NITROGLYCERIN OINT 1 INCH/GM PACKET TOPICAL SCH ×4 (08:16→20:28)
[2016-03-23] MEDS ORDERED: FUROSEMIDE 40 MG TAB PO SCH (09:00)
[2016-03-23] MEDS ORDERED: CLOPIDOGREL 75 MG TAB PO SCH (09:00)
--- NOTE | 2016-03-23 10:05 | P.HPIM ---
History of Present Illness H&P Date: 03/23/16 Chief Complaint: Shortness of breath Is a 65-year-old female who was discharged from the hospital less than 12 hours ago. With respect to bladder back today complaining of shortness of breath which began this morning and she woke up. Patient called EMS and was given a DuoNeb and was transferred to the hospital Review of Systems Constitutional: Reports as per HPI Ears, nose, mouth and throat: Reports as per HPI Cardiovascular: Reports as per HPI, Reports shortness of breath Respiratory: Reports dyspnea Gastrointestinal: Reports as per HPI Genitourinary: Reports as per HPI Menstruation: Reports postmenopausal Musculoskeletal: Reports as per HPI Integumentary: Reports as per HPI Neurological: Reports hearing difficulties, Reports memory loss Psychiatric: Reports depression Endocrine: Reports as per HPI Past Medical History Past Medical History: Atrial Fibrillation, Asthma, COPD, Diabetes Mellitus, Hyperlipidemia Additional Past Medical History / Comment(s): Morbid obesity, COPD, bronchial asthma, diabetes mellitus, hyperlipidemia, large anterior abdominal wall hernia , obstructive sleep apnea maintained on CPAP on outpatient basis, back pain, generalized anxiety disorder, lumbar radiculopathy, kidney cysts, 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 Chronic atrial fibrillation, chronic restrictive and obstructive lung disease secondary to morbid obesity and underlying bronchial asthma, chronic anemia History of Any Multi-Drug Resistant Organisms: None Reported Past Surgical History: Breast Surgery, Hernia Repair Additional Past Surgical History / Comment(s): cataracts Past Anesthesia/Blood Transfusion Reactions: No Reported Reaction Past Psychological History: Anxiety Smoking Status: Never smoker Past Alcohol Use History: None Reported Past Drug Use History: None Reported - Past Family History Mother Family Medical History: CVA/TIA Medications and Allergies Home Medications Medication Instructions Recorded Confirmed Type Sertraline [Zoloft] 50 mg PO HS 01/17/14 03/22/16 History Montelukast Sodium [Singulair] 10 mg PO HS 10/10/15 03/22/16 History Cyclobenzaprine [Flexeril] 10 mg PO TID PRN 03/04/16 03/22/16 History Famotidine [Pepcid] 20 mg PO QAM 03/04/16 03/22/16 History Furosemide [Lasix] 40 mg PO QAM 03/04/16 03/22/16 History Ipratropium-Albuterol Nebulize 3 ml INHALATION RT-QID PRN 03/04/16 03/22/16 History [Duoneb 0.5 mg-3 mg/3 ml Soln] Potassium Chloride ER [K-Dur 20] 20 meq PO QAM 03/04/16 03/22/16 History metFORMIN HCL 1,000 mg PO BID 03/04/16 03/22/16 History Aspirin 325 mg PO DAILY 03/18/16 03/22/16 History Clopidogrel [Plavix] 75 mg PO DAILY 03/18/16 03/22/16 History Verapamil [Isoptin] 80 mg PO TID 03/18/16 03/22/16 History predniSONE See Taper PO DIRECTED 03/22/16 03/22/16 History Allergies Allergy/AdvReac Type Severity Reaction Status Date / Time adhesive Allergy Rash/Hives Verified 03/22/16 13:43 codeine AdvReac Nausea & Verified 03/22/16 13:43 Vomiting Physical Exam Osteopathic Statement: *. No significant issues noted on an osteopathic structural exam other than those noted in the History and Physical/Consult. Vitals: Vital Signs Temp Pulse Pulse Resp BP BP Pulse Ox 03/23/16 04:00 98.3 F 60 22 127/57 92 L 03/23/16 00:00 98 F 64 22 125/61 92 L 03/22/16 20:42 88 03/22/16 20:31 88 97 03/22/16 20:00 98.1 F 79 22 130/66 96 03/22/16 18:08 87 18 98/58 98 03/22/16 18:05 98.1 F 79 22 130/66 96 03/22/16 17:49 98.8 F 120 H 18 90/68 100 Intake and Output 03/22/16 03/23/16 03/23/16 22:59 06:59 14:59 Intake Total 100 Output Total 600 3400 300 Balance -600 -3400 -200 Intake: Oral 100 Output: Urine 600 3400 300 Other: Voiding Method Bedside Commode Bedside Commode Bedpan Bedpan Weight 136.078 kg General: [Patient awake, alert and oriented times 3. Patient in no acute distress.] HEENT: [PERRL. EOMI. No pharyngeal erythema or exudate.] Excessive hirsutism Neck: [No adenopathy.] Cardiac: [Heart regular in rate and rhythm. No S3. No S4. No clicks, rubs. No murmur.] Lungs: Significant dyspnea with bibasilar crackles Abdomen: [No mass. No organomegaly. Bowel sounds presnt and normoactive in all 4 quadrants.] Morbid obesity with large pannus Extremes: [No edema no cyanosis no claudication normal pulses] : [] Musculoskeletal: [No joint erythema, edema or tenderness.] Skin: [No rash.] Neurologic: [No lateralizing deficits. CN II - XII grossly intact.] Lymphatic: [No adenopathy.] Results CBC & Chem 7: 03/22/16 13:40 03/22/16 13:40 Labs: Abnormal Lab Results - Last 24 Hours (Table) 03/22/16 03/23/16 Range/Units 20:21 06:03 POC Glucose (mg/dL) 368 H 119 H (75-99) mg/dL Thrombosis Risk Factor Assmnt - Choose All That Apply Each Risk Factor Represents 2 Points: Age 61-74 years Thrombosis Risk Factor Assessment Total Risk Factor Score: 2 Thrombosis Risk Factor Assessment Level: Low Risk Assessment and Plan (1) Atrial fibrillation with RVR Narrative/Plan: Patient is currently being treated with verapamil, and is being started on Xarelto Status: Acute (2) Congestive heart failure (CHF) Narrative/Plan: Heart failure is currently secondary to A. fib with rapid ventricular response which is currently being treated we will also obtain cardiology consult Status: Acute (3) Failure of outpatient treatment Narrative/Plan: Will be initiating social work consult for placement Status: Acute (4) Anemia Narrative/Plan: This is known anemia of chronic disease also secondary to poor nutritional intake Status: Acute Plan: We will consult social work and discharge planning for prison placement We will also treat A. fib with xarelto and verapamil Obtain cardiology consult
--- NOTE | 2016-03-23 12:21 | P.CRDCN ---
History of Present Illness Consult date: 03/23/16 Chief complaint: Progressive dyspnea History of present illness: This is a pleasant 65-year-old female patient with a past medical history significant for obesity, diabetes, chronic atrial fibrillation, and chronic diastolic heart failure, presented back to the hospital complaining of progressive dyspnea associated with cough and wheezing. The patient just was discharged from the hospital about 2 weeks ago after she was admitted was congestive heart failure exacerbation and at that point she underwent an echocardiogram was Doppler which showed preserved LV function with mild LVH and hypertensive heart disease. She came back this time experiencing progressive exertional dyspnea and progressive bilateral lower extremities edema. The chest x-ray showed findings consistent with CHF. The BNP came in to be elevated. Beside that the patient was found to be in A. fib with RVR. And she was started on Cardizem drip. We will continue the patient on the current medical treatment with continue monitoring the kidney function and electrolytes. Titrate the Cardizem drip to controlled heart rate. No need for echocardiogram at this point. Past Medical History Past Medical History: Atrial Fibrillation, Asthma, COPD, Diabetes Mellitus, Hyperlipidemia Additional Past Medical History / Comment(s): Morbid obesity, COPD, bronchial asthma, diabetes mellitus, hyperlipidemia, large anterior abdominal wall hernia , obstructive sleep apnea maintained on CPAP on outpatient basis, back pain, generalized anxiety disorder, lumbar radiculopathy, kidney cysts, 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 Chronic atrial fibrillation, chronic restrictive and obstructive lung disease secondary to morbid obesity and underlying bronchial asthma, chronic anemia History of Any Multi-Drug Resistant Organisms: None Reported Past Surgical History: Breast Surgery, Hernia Repair Additional Past Surgical History / Comment(s): cataracts Past Anesthesia/Blood Transfusion Reactions: No Reported Reaction Past Psychological History: Anxiety Smoking Status: Never smoker Past Alcohol Use History: None Reported Past Drug Use History: None Reported - Past Family History Mother Family Medical History: CVA/TIA Medications and Allergies Home Medications Medication Instructions Recorded Confirmed Type Sertraline [Zoloft] 50 mg PO HS 01/17/14 03/22/16 History Montelukast Sodium [Singulair] 10 mg PO HS 10/10/15 03/22/16 History Cyclobenzaprine [Flexeril] 10 mg PO TID PRN 03/04/16 03/22/16 History Famotidine [Pepcid] 20 mg PO QAM 03/04/16 03/22/16 History Furosemide [Lasix] 40 mg PO QAM 03/04/16 03/22/16 History Ipratropium-Albuterol Nebulize 3 ml INHALATION RT-QID PRN 03/04/16 03/22/16 History [Duoneb 0.5 mg-3 mg/3 ml Soln] Potassium Chloride ER [K-Dur 20] 20 meq PO QAM 03/04/16 03/22/16 History metFORMIN HCL 1,000 mg PO BID 03/04/16 03/22/16 History Aspirin 325 mg PO DAILY 03/18/16 03/22/16 History Clopidogrel [Plavix] 75 mg PO DAILY 03/18/16 03/22/16 History Verapamil [Isoptin] 80 mg PO TID 03/18/16 03/22/16 History predniSONE See Taper PO DIRECTED 03/22/16 03/22/16 History Allergies Allergy/AdvReac Type Severity Reaction Status Date / Time adhesive Allergy Rash/Hives Verified 03/22/16 13:43 codeine AdvReac Nausea & Verified 03/22/16 13:43 Vomiting Physical Exam Vitals: Vital Signs Temp Pulse Pulse Resp BP BP Pulse Ox 03/23/16 08:00 98.2 F 58 L 20 157/66 94 L 03/23/16 04:00 98.3 F 60 22 127/57 92 L 03/23/16 00:00 98 F 64 22 125/61 92 L 03/22/16 20:42 88 03/22/16 20:31 88 97 03/22/16 20:00 98.1 F 79 22 130/66 96 03/22/16 18:08 87 18 98/58 98 03/22/16 18:05 98.1 F 79 22 130/66 96 03/22/16 17:49 98.8 F 120 H 18 90/68 100 Intake and Output 03/22/16 03/23/16 03/23/16 22:59 06:59 14:59 Intake Total 100 Output Total 600 3400 700 Balance -600 -3400 -600 Intake: Oral 100 Output: Urine 600 3400 700 Other: Voiding Method Bedside Commode Bedside Commode Bedpan Bedpan Weight 136.078 kg - Constitutional General appearance: no acute distress - Respiratory Respiratory: bilateral: diminished, wheezing - Cardiovascular Rhythm: irregularly irregular Heart sounds: normal: S1, S2 Results 03/22/16 13:40 03/22/16 13:40 Cardiac Enzymes 03/22/16 03/23/16 Range/Units 20:55 03:12 Troponin I 0.015 0.018 (0.000-0.034) ng/mL Current Medications Generic Name Dose Route Start Last Admin Trade Name Freq PRN Reason Stop Dose Admin Albuterol/Ipratropium 3 ml 03/22/16 21:45 Duoneb 0.5 Mg-3 Mg/3 Ml Soln INHALATION RT-QID PRN Shortness Of Breath Or Wheezing Albuterol/Ipratropium 3 ml 03/23/16 08:00 03/23/16 12:06 Duoneb 0.5 Mg-3 Mg/3 Ml Soln INHALATION Not Given RT-QID SHAGUFTA Aspirin 325 mg 03/23/16 09:00 03/23/16 08:16 Aspirin PO 325 mg DAILY SHAGUFTA Administration Atorvastatin Calcium 80 mg 03/22/16 21:00 03/22/16 20:46 Lipitor PO 80 mg HS SHAGUFTA Administration Cyclobenzaprine HCl 10 mg 03/22/16 17:06 Flexeril PO TID PRN Muscle Spasm/Pain Famotidine 20 mg 03/23/16 09:00 03/23/16 08:16 Pepcid PO 20 mg QAM SHAGUFTA Administration Furosemide 40 mg 03/23/16 02:00 03/23/16 08:16 Lasix IV 40 mg Q8H SHAGUFTA Administration Diltiazem HCl 125 mg/ Sodium 125 mls @ 5 mls/hr 03/22/16 15:59 03/22/16 17:52 Chloride IV 03/23/16 15:58 5 mg/hr .Q24H ONE 5 mls/hr 5 MG/HR Administration Sodium Chloride 1,000 mls @ 20 mls/hr 03/22/16 17:15 03/22/16 20:45 Saline 0.9% IV 20 mls/hr .Q24H SHAGUFTA Administration Insulin Glargine 50 unit 03/22/16 21:00 03/22/16 20:43 Lantus SQ 50 unit HS SHAGUFTA Administration Insulin Human Lispro 0 unit 03/22/16 17:30 03/23/16 06:34 Humalog SQ Not Given ACHS [facility] Protocol Metformin HCl 1,000 mg 03/22/16 18:00 03/23/16 06:36 Glucophage PO 1,000 mg AC-BID SHAGUFTA Administration Montelukast Sodium 10 mg 03/22/16 21:00 03/22/16 20:46 Singulair PO 10 mg HS SHAGUFTA Administration Nitroglycerin 1 inch 03/22/16 18:00 03/23/16 08:16 Nitro-Bid Oint TOPICAL 1 inch QID SHAGUFTA Administration Potassium Chloride 20 meq 03/23/16 09:00 03/23/16 08:16 K-Dur 20 PO 20 meq QAM SHAGUFTA Administration Prednisone 10 mg 03/23/16 09:00 03/23/16 08:16 PO 10 mg DAILY SHAGUFTA Administration Rivaroxaban 10 mg 03/24/16 09:00 Xarelto PO DAILY SHAGUFTA Sertraline HCl 50 mg 03/22/16 21:00 03/22/16 20:46 Zoloft PO 50 mg HS SHAGUFTA Administration Verapamil HCl 80 mg 03/22/16 22:00 03/23/16 08:16 Isoptin PO 80 mg TID SHAGUFTA Administration Intake and Output 03/22/16 03/23/16 03/23/16 22:59 06:59 14:59 Intake Total 100 Output Total 600 3400 700 Balance -600 -3400 -600 Intake: Oral 100 Output: Urine 600 3400 700 Other: Voiding Method Bedside Commode Bedside Commode Bedpan Bedpan Weight 136.078 kg Assessment and Plan Plan: Assessment #1 congestive heart failure exacerbation secondary to diastole dysfunction #2 atrial fibrillation with RVR #3 known hypertensive heart disease #4 multiple comorbid conditions Plan #1 continue the Lasix IV #2 monitor the kidney function and electrolytes #3 titrate the Cardizem drip to control the heart rate #4 follow-up with the patient
[2016-03-23 12:33] LABS: Glucose,Whole Blood 151 mg/dL (75-99)
[2016-03-23 17:09] LABS: Glucose,Whole Blood 142 mg/dL (75-99)
[2016-03-23] MEDS: SODIUM CHLORIDE 0.9% 1,000 ML IV SCH ×2 (18:05→20:28)
[2016-03-23 20:23] LABS: Glucose,Whole Blood 142 mg/dL (75-99)
[2016-03-23] MEDS: INSULIN GLARGINE 100 UNIT/ML 10 ML VIAL SQ SCH (20:27)
[2016-03-23] MEDS: MONTELUKAST 10 MG TAB PO SCH (20:28)
[2016-03-23] MEDS: ATORVASTATIN 80 MG TAB PO SCH (20:28)
[2016-03-23] MEDS: SERTRALINE 50 MG TAB PO SCH (20:29)
[2016-03-23] MEDS: CYCLOBENZAPRINE 10 MG TAB PO PRN (20:33)
[2016-03-24] MEDS: FUROSEMIDE 10 MG/ML 4 ML VIAL IV SCH ×3 (02:33→16:34)
[2016-03-24 06:31] LABS: Glucose,Whole Blood 49 mg/dL (75-99)
[2016-03-24 06:52] LABS: Glucose,Whole Blood 65 mg/dL (75-99)
[2016-03-24] MEDS: INSULIN LISPRO (humaLOG) 300 UNIT/3 ML VIAL SQ SCH ×4 (07:00→21:11)
[2016-03-24 07:11] LABS: Glucose,Whole Blood 94 mg/dL (75-99)
[2016-03-24] MEDS ORDERED: INSULIN GLARGINE 100 UNIT/ML 10 ML VIAL SQ SCH (08:17)
[2016-03-24] MEDS: NITROGLYCERIN OINT 1 INCH/GM PACKET TOPICAL SCH (09:09)
[2016-03-24] MEDS: metFORMIN 500 MG TAB PO SCH ×2 (09:09→16:34)
[2016-03-24] MEDS: POTASSIUM CHLORIDE ER 20 MEQ TAB.ER PO SCH (09:10)
[2016-03-24] MEDS: FAMOTIDINE 20 MG TAB PO SCH (09:10)
[2016-03-24] MEDS: ASPIRIN 325 MG TAB PO SCH (09:10)
[2016-03-24] MEDS: RIVAROXABAN 10 MG TAB PO SCH (09:10)
[2016-03-24] MEDS: VERAPAMIL 80 MG TAB PO SCH (09:11)
[2016-03-24] MEDS: predniSONE 10 MG TAB PO SCH (09:11)
[2016-03-24] MEDS: IPRATROPIUM-ALBUTEROL 3 ML NEB INHALATION SCH ×3 (09:17→20:05)
[2016-03-24 09:45] LABS: Basophils % (A) 0 %; CH 27.4; CHCM 30.8; Eosinophils # (A) 0.1 k/uL (0-0.7); Eosinophils % (A) 1 %; HCT 31.5 % (34.0-46.0); HDW 3.09; HGB 9.7 gm/dL (11.4-16.0); Hypochromasia Moderate; Luc # (Auto) 0.23; Luc % (Auto) 2; Lymphocytes # (A) 1.8 k/uL (1.0-4.8); Lymphocytes % (A) 16 %; MCH 27.6 pg (25.0-35.0); MCHC 30.9 g/dL (31.0-37.0); MCV 89.3 fL (80.0-100.0); Mean Platelet Volume 7.9; Monocytes # (A) 0.5 k/uL (0-1.0); Monocytes % (A) 5 %; Neutrophils # (A) 8.4 k/uL (1.3-7.7); Neutrophils % (A) 76 %; RBC 3.53 m/uL (3.80-5.40); RDW 15.7 % (11.5-15.5); WBC 11.1 k/uL (3.8-10.6); WBC (Perox) 11.98
[2016-03-24 10:00] LABS: Blood Urea Nitrogen 44 mg/dL (7-17); Chloride 90 mmol/L (98-107); Glucose 139 mg/dL (74-99); Non-African American GFR(MDRD) 51 (>60 ml/min/1.73 sqM); Potassium 4.3 mmol/L (3.5-5.1); Sodium 139 mmol/L (137-145)
[2016-03-24 10:08] LABS: Anion Gap 7 mmol/L
[2016-03-24 10:23] LABS: Carbon Dioxide 42 mmol/L (22-30)
[2016-03-24 11:36] VITALS: BMI 50.5
[2016-03-24 11:59] LABS: Glucose,Whole Blood 140 mg/dL (75-99)
[2016-03-24] MEDS: VERAPAMIL 40 MG TAB PO SCH ×2 (15:56→21:48)
--- NOTE | 2016-03-24 16:01 | P.PN ---
Subjective Patient is a 65-year-old female admitted with shortness of breath suspect secondary to acute diastolic congestive heart failure suspect secondary to atrial fibrillation with RVR. Patient has been seen by cardiology was initiated IV Cardizem and diuretics. Upon examination, patient reports improvement in breathing. Denies chills, fevers, nausea, vomiting, chest pain, or abdominal pain. Patient is very tearful and states she wants to go home to her family. Objective - Vital Signs Vital signs: Vital Signs Temp 97 F L 03/24/16 08:00 Pulse 78 03/24/16 11:49 Resp 17 03/24/16 11:49 BP 119/80 03/24/16 11:49 Pulse Ox 94 L 03/24/16 11:49 Intake & Output 03/23/16 03/24/16 03/24/16 18:59 06:59 18:59 Intake Total 100 540 480 Output Total 2300 1400 600 Balance -2200 -860 -120 Weight 117.4 kg 117.4 kg Intake: Oral 100 540 480 Output: Urine 2300 1400 600 Other: Voiding Method Bedside Commode Bedside Commode Bedpan Bedpan # Voids 2 - Exam GENERAL: Pt awake and alert, well-nourished, and in no acute distress. HEAD: Atraumatic, normocephalic. EYES: Pupils equal, round, and reactive to light, extraocular movements intact, sclera anicteric, conjunctiva are normal. ENT: Moist mucous membranes. NECK:Supple without lymphadenopathy or JVD. LUNGS: Breath sounds diminished to auscultation bilaterally. Mild expiratory wheezing. HEART: Heart S1, S2, no S3 or S4. Irregularly irregular. No murmurs, rubs or gallops. ABDOMEN: Soft, morbidly obese, nontender, nondistended, normoactive bowel sounds. No guarding, no rebound. Large incisional hernia present. EXTREMITIES: 2+ peripheral pulses. 1+ bilateral lower extremity edema. No calf tenderness. NEUROLOGICAL: Pt oriented x 3. Cranial nerves II through XII grossly intact. Strength and sensation grossly intact. PSYCH: Normal mood, normal affect. SKIN: Warm, dry, intact. Normal turgor. No rashes or lesions. - Labs CBC & Chem 7: 03/24/16 09:17 03/24/16 09:17 Labs: Abnormal Lab Results - Last 24 Hours (Table) 03/23/16 03/23/16 03/24/16 Range/Units 17:06 20:22 06:28 WBC (3.8-10.6) k/uL RBC (3.80-5.40) m/uL Hgb (11.4-16.0) gm/dL Hct (34.0-46.0) % MCHC (31.0-37.0) g/dL RDW (11.5-15.5) % Neutrophils # (1.3-7.7) k/uL Chloride (98-107) mmol/L Carbon Dioxide (22-30) mmol/L BUN (7-17) mg/dL Creatinine (0.52-1.04) mg/dL Glucose (74-99) mg/dL POC Glucose (mg/dL) 142 H 142 H 49 L (75-99) mg/dL 03/24/16 03/24/16 03/24/16 Range/Units 06:51 09:17 09:17 WBC 11.1 H (3.8-10.6) k/uL RBC 3.53 L (3.80-5.40) m/uL Hgb 9.7 L (11.4-16.0) gm/dL Hct 31.5 L (34.0-46.0) % MCHC 30.9 L (31.0-37.0) g/dL RDW 15.7 H (11.5-15.5) % Neutrophils # 8.4 H (1.3-7.7) k/uL Chloride 90 L (98-107) mmol/L Carbon Dioxide 42 H* (22-30) mmol/L BUN 44 H (7-17) mg/dL Creatinine 1.07 H (0.52-1.04) mg/dL Glucose 139 H (74-99) mg/dL POC Glucose (mg/dL) 65 L (75-99) mg/dL 03/24/16 Range/Units 11:57 WBC (3.8-10.6) k/uL RBC (3.80-5.40) m/uL Hgb (11.4-16.0) gm/dL Hct (34.0-46.0) % MCHC (31.0-37.0) g/dL RDW (11.5-15.5) % Neutrophils # (1.3-7.7) k/uL Chloride (98-107) mmol/L Carbon Dioxide (22-30) mmol/L BUN (7-17) mg/dL Creatinine (0.52-1.04) mg/dL Glucose (74-99) mg/dL POC Glucose (mg/dL) 140 H (75-99) mg/dL Assessment and Plan Plan: Impression: 1. Acute on chronic diastolic congestive heart failure. Cardiology has seen and evaluated patient. Continue IV Lasix. 2. Chronic bronchial asthma. Continue Singulair. 3. Chronic atrial fibrillation with rapid ventricular response on admission. Continue IV Cardizem. Continue verapamil. Patient has been started on Xaralto. 4. Obstructive sleep apnea maintained on CPAP on outpatient basis. 5. Diabetes mellitus type 2, uncontrolled. Continue Lantus and Humalog sliding scale per protocol. Continue metformin. 6. Large anterior abdominal wall hernia. Continue to monitor. 7. History of chronic back pain with lumbar radiculopathy. Continue pain management as needed. 8. Generalized anxiety. Continue Zoloft. 9. Chronic hypoxic respiratory failure on home O2 at 3-4 L [id number]. Continue supplemental oxygen. Continue DuoNeb updrafts. 10. Hypertension. 11. Anemia, normocytic, normochromic suspect secondary to chronic disease. 12. Super morbid obesity. 13. Leukocytosis, suspect steroid-induced. Repeat CBC in a.m. 14. Chronic obstructive pulmonary disease. Continue steroids. 15. GI prophylaxis. Continue Pepcid. 16. DVT prophylaxis. Continue Xarelto and ambulation. 17. Medical debility. Consult physical therapy and arrange for subacute rehab facility. The above impression and plan have been discussed and directed by Dr. Tompkins. Christina RANKIN acting as scribe for Dr. Tompkins.
--- NOTE | 2016-03-24 16:04 | P.PN ---
Subjective Principal diagnosis: CHF This is a pleasant 65-year-old female patient with a past medical history significant for obesity, diabetes, chronic atrial fibrillation, and chronic diastolic heart failure, presented back to the hospital complaining of progressive dyspnea associated with cough and wheezing. Patient was initiated on IV Lasix here, diuresing well. Patient was also in atrial fibrillation with rapid ventricular response, heart rate in the low 100s today, we discontinued the IV Cardizem drip, we will increase the verapamil to 120 mg by mouth 3 times a day. We will also increase her xarelto dose to 15 mg daily. Arrangements are currently being made for patient to transfer to rehab at [facility]. Objective - Vital Signs Vital signs: Vital Signs Temp 97.5 F L 03/24/16 15:48 Pulse 70 03/24/16 15:48 Resp 17 03/24/16 15:48 BP 133/78 03/24/16 15:48 Pulse Ox 91 L 03/24/16 15:48 Intake & Output 03/23/16 03/24/16 03/24/16 18:59 06:59 18:59 Intake Total 100 540 480 Output Total 2300 1400 1000 Balance -2200 -860 -520 Weight 117.4 kg 117.4 kg Intake: Oral 100 540 480 Output: Urine 2300 1400 1000 Other: Voiding Method Bedside Commode Bedside Commode Bedpan Bedpan # Voids 2 - Exam PHYSICAL EXAMINATION: HEENT: Head is atraumatic, normocephalic. Pupils equal, round. Neck is supple. There is no elevated jugular venous pressure. HEART EXAMINATION: S1 and S2 irregular irregular CHEST EXAMINATION: Lungs reveal diminished air entry to bilateral bases ABDOMEN: Abdomen is morbidly obese, no tenderness noted. Abdominal apron is reaching to the patient's upper thighs. She also has a large incisional hernia unchanged from prior.. EXTREMITIES: 1+ peripheral pulses with trace evidence of peripheral edema and no calf tenderness noted. NEUROLOGIC patient is awake, alert and oriented -3. - Labs CBC & Chem 7: 03/24/16 09:17 03/24/16 09:17 Labs: Abnormal Lab Results - Last 24 Hours (Table) 03/23/16 03/23/16 03/24/16 Range/Units 17:06 20:22 06:28 WBC (3.8-10.6) k/uL RBC (3.80-5.40) m/uL Hgb (11.4-16.0) gm/dL Hct (34.0-46.0) % MCHC (31.0-37.0) g/dL RDW (11.5-15.5) % Neutrophils # (1.3-7.7) k/uL Chloride (98-107) mmol/L Carbon Dioxide (22-30) mmol/L BUN (7-17) mg/dL Creatinine (0.52-1.04) mg/dL Glucose (74-99) mg/dL POC Glucose (mg/dL) 142 H 142 H 49 L (75-99) mg/dL 03/24/16 03/24/16 03/24/16 Range/Units 06:51 09:17 09:17 WBC 11.1 H (3.8-10.6) k/uL RBC 3.53 L (3.80-5.40) m/uL Hgb 9.7 L (11.4-16.0) gm/dL Hct 31.5 L (34.0-46.0) % MCHC 30.9 L (31.0-37.0) g/dL RDW 15.7 H (11.5-15.5) % Neutrophils # 8.4 H (1.3-7.7) k/uL Chloride 90 L (98-107) mmol/L Carbon Dioxide 42 H* (22-30) mmol/L BUN 44 H (7-17) mg/dL Creatinine 1.07 H (0.52-1.04) mg/dL Glucose 139 H (74-99) mg/dL POC Glucose (mg/dL) 65 L (75-99) mg/dL 03/24/16 Range/Units 11:57 WBC (3.8-10.6) k/uL RBC (3.80-5.40) m/uL Hgb (11.4-16.0) gm/dL Hct (34.0-46.0) % MCHC (31.0-37.0) g/dL RDW (11.5-15.5) % Neutrophils # (1.3-7.7) k/uL Chloride (98-107) mmol/L Carbon Dioxide (22-30) mmol/L BUN (7-17) mg/dL Creatinine (0.52-1.04) mg/dL Glucose (74-99) mg/dL POC Glucose (mg/dL) 140 H (75-99) mg/dL Assessment and Plan Plan: Plan: Assessment and plan #1 acute onset of shortness of breath, diastolic congestive heart failure acute on chronic #2 persistent atrial fibrillation, on xarelto #3 morbid obesity #4 asthma number #5 obstructive sleep apnea #6 diabetes #7 hyperlipidemia #8 large anterior abdominal wall incisional hernia Plan We will increase verapamil to 120 mg by mouth 3 times a day, increased Xarelto to 15 mg daily. Continue IV Lasix for 24 hours. Arrangements are being made for patient to be transferred to [facility] rehab. DNP note has been reviewed, I agree with a documented findings and plan of care. Patient was seen and examined.
[2016-03-24] MEDS: CYCLOBENZAPRINE 10 MG TAB PO PRN ×2 (16:32→21:48)
[2016-03-24 16:37] LABS: Glucose,Whole Blood 95 mg/dL (75-99)
[2016-03-24 20:24] LABS: Glucose,Whole Blood 94 mg/dL (75-99)
[2016-03-24] MEDS: MONTELUKAST 10 MG TAB PO SCH (21:20)
[2016-03-24] MEDS: SERTRALINE 50 MG TAB PO SCH (21:20)
[2016-03-24] MEDS: ATORVASTATIN 80 MG TAB PO SCH (21:20)
[2016-03-25 01:52] LABS: Glucose,Whole Blood 61 mg/dL (75-99)
[2016-03-25] MEDS: FUROSEMIDE 10 MG/ML 4 ML VIAL IV SCH ×2 (01:54→08:50)
[2016-03-25 02:24] LABS: Glucose,Whole Blood 84 mg/dL (75-99)
[2016-03-25 05:35] LABS: Glucose,Whole Blood 53 mg/dL (75-99)
[2016-03-25 05:55] LABS: Glucose,Whole Blood 78 mg/dL (75-99)
[2016-03-25 06:24] LABS: Glucose,Whole Blood 179 mg/dL (75-99)
[2016-03-25 06:24] LABS: Basophils % (A) 0 %; CH 27.6; CHCM 31.6; Eosinophils # (A) 0.2 k/uL (0-0.7); Eosinophils % (A) 2 %; HCT 31.5 % (34.0-46.0); HDW 3.05; Hypochromasia Slight; Luc # (Auto) 0.22; Luc % (Auto) 2; Lymphocytes # (A) 2.2 k/uL (1.0-4.8); Lymphocytes % (A) 20 %; MCH 27.9 pg (25.0-35.0); MCHC 31.9 g/dL (31.0-37.0); MCV 87.6 fL (80.0-100.0); Mean Platelet Volume 7.4; Monocytes # (A) 0.6 k/uL (0-1.0); Monocytes % (A) 5 %; Neutrophils # (A) 7.5 k/uL (1.3-7.7); Neutrophils % (A) 71 %; RDW 15.8 % (11.5-15.5); WBC 10.7 k/uL (3.8-10.6); WBC (Perox) 11.68
[2016-03-25] MEDS: INSULIN LISPRO (humaLOG) 300 UNIT/3 ML VIAL SQ SCH ×2 (06:27→12:04)
[2016-03-25 06:47] LABS: Calcium 10.4 mg/dL (8.4-10.2); Potassium 4.3 mmol/L (3.5-5.1)
[2016-03-25] MEDS: metFORMIN 500 MG TAB PO SCH (06:52)
[2016-03-25 08:49] VITALS: RESP 19; TEMP 97
[2016-03-25] MEDS: RIVAROXABAN 10 MG TAB PO SCH (08:49)
[2016-03-25] MEDS: VERAPAMIL 40 MG TAB PO SCH (08:49)
[2016-03-25] MEDS: POTASSIUM CHLORIDE ER 20 MEQ TAB.ER PO SCH (08:49)
[2016-03-25] MEDS: FAMOTIDINE 20 MG TAB PO SCH (08:50)
[2016-03-25] MEDS: predniSONE 10 MG TAB PO SCH (08:50)
[2016-03-25] MEDS ORDERED: ASPIRIN 81 MG CHEW PO SCH (09:00)
[2016-03-25] MEDS: IPRATROPIUM-ALBUTEROL 3 ML NEB INHALATION SCH ×3 (09:26→17:18)
--- NOTE | 2016-03-25 10:10 | P.DS ---
Providers Date of admission: 03/22/16 17:08 Expected date of discharge: 03/25/16 Attending physician: Bhavik Tompkins Consults: 03/22/16 19:47 Consult Physician Routine Consulting Provider: Gabi Fan Consult Reason/Comments: Afib Do you want consulting provider notified?: Yes, Notify in am Primary care physician: John Taylor Hospital Course: Patient is a 65-year-old female with medical history significant for asthma, COPD, urinary tract infection, atrial fibrillation, obstructive sleep apnea maintained on CPAP on an outpatient basis, morbid obesity, diabetes mellitus type 2, large anterior abdominal wall hernia, chronic back pain with lumbar radiculopathy, generalized anxiety, chronic hypoxic respiratory failure on home O2 at 4 L [id number], hypertension, anemia, and renal insufficiency. Patient presented to the emergency department with shortness of breath suspect. Patient was found to have evidence of acute diastolic congestive heart failure and atrial fibrillation with RVR. Consult was requested to cardiology service, who initiated patient on IV Cardizem and IV Lasix and increased dose of verapamil. Patient was also started on xaralto for anticoagulation. Patient improved during her hospital stay and was deemed stable to go to [facility] for subacute rehab. Dr. Taylor will follow her in the outpatient setting. Discharge diagnoses: 1. Acute on chronic diastolic congestive heart failure. 2. Chronic bronchial asthma. 3. Chronic atrial fibrillation with rapid ventricular response on admission. 4. Obstructive sleep apnea maintained on CPAP on outpatient basis. 5. Diabetes mellitus type 2, uncontrolled. 6. Large anterior abdominal wall hernia. 7. History of chronic back pain with lumbar radiculopathy. 8. Generalized anxiety. 9. Chronic hypoxic respiratory failure on home O2 at 3-4 L [id number]. 10. Hypertension. 11. Anemia, normocytic, normochromic suspect secondary to chronic disease. 12. Super morbid obesity. 13. Leukocytosis, suspect steroid-induced. 14. Chronic obstructive pulmonary disease. 15. Medical debility. Consult physical therapy and arrange for subacute rehab facility. The above impression and plan have been discussed and directed by Dr. Tompkins. Christina RANKIN acting as scribe for Dr. Tompkins. Pertinent Studies: Chest x-ray; EKG Patient Condition at Discharge: Good Plan - Discharge Summary New Discharge Prescriptions: Cyclobenzaprine [Flexeril] 10 mg PO TID PRN #21 tab PRN Reason: Muscle Spasm/Pain Cyclobenzaprine [Flexeril] 10 mg PO TID PRN #21 tab PRN Reason: Muscle Spasm/Pain Rivaroxaban [Xarelto] 20 mg PO DAILY #30 tab Discharge Medication List Sertraline [Zoloft] 50 mg PO HS 01/17/14 [History] Montelukast Sodium [Singulair] 10 mg PO HS 10/10/15 [History] Famotidine [Pepcid] 20 mg PO QAM 03/04/16 [History] Furosemide [Lasix] 40 mg PO QAM 03/04/16 [History] Potassium Chloride ER [K-Dur 20] 20 meq PO QAM 03/04/16 [History] metFORMIN HCL 1,000 mg PO BID 03/04/16 [History] Atorvastatin [Lipitor] 80 mg PO HS #30 tab 03/07/16 [Rx] Aspirin 81 mg PO DAILY chew 03/25/16 [Rx] Cyclobenzaprine [Flexeril] 10 mg PO TID PRN #21 tab 03/25/16 [Rx] Cyclobenzaprine [Flexeril] 10 mg PO TID PRN #21 tab 03/25/16 [Rx] INSULIN LISPRO (humaLOG) [humaLOG (formulary)] 0 unit SQ ACHS vial 03/25/16 [Rx ] Insulin Glargine [Lantus] 40 unit SQ HS vial 03/25/16 [Rx] Ipratropium-Albuterol Nebulize [Duoneb 0.5 mg-3 mg/3 ml Soln] 3 ml INHALATION RT -QID ampul.neb 03/25/16 [Rx] Ipratropium-Albuterol Nebulize [Duoneb 0.5 mg-3 mg/3 ml Soln] 3 ml INHALATION RT -QID PRN #0 ampul.neb 03/25/16 [Rx] Rivaroxaban [Xarelto] 20 mg PO DAILY #30 tab 03/25/16 [Rx] Verapamil [Isoptin] 120 mg PO TID tab 03/25/16 [Rx] predniSONE 10 mg PO DAILY #3 03/25/16 [Rx] Follow up Appointment(s)/Referral(s): John Taylor MD [Primary Care Provider] - 1-2 days [facility] [Provider Group] - 2 Weeks Activity/Diet/Wound Care/Special Instructions: Consistent carbohydrate diet Discharge Disposition: TRANSFER TO SNF/ECF
[2016-03-25 11:26] VITALS: BP 136/70
[2016-03-25 11:42] LABS: Glucose,Whole Blood 140 mg/dL (75-99)
--- NOTE | 2016-03-25 12:23 | P.PN ---
Subjective Principal diagnosis: CHF This is a pleasant 65-year-old female patient with a past medical history significant for obesity, diabetes, chronic atrial fibrillation, and chronic diastolic heart failure, presented back to the hospital complaining of progressive dyspnea associated with cough and wheezing. Patient was initiated on IV Lasix here, diuresed well. Patient was also in atrial fibrillation with rapid ventricular response, heart rate in the low 90s today, patient is currently on verapamil 120 mg one tablet by mouth 3 times a day. Arrangements are being made for the patient be transferred to [facility] today. We will make her a follow-up appointment in the office post discharge. Objective - Vital Signs Vital signs: Vital Signs Temp 97 F L 03/25/16 08:00 Pulse 70 03/25/16 11:25 Resp 19 03/25/16 11:25 BP 136/70 03/25/16 11:25 Pulse Ox 95 03/25/16 11:25 Intake & Output 03/24/16 03/25/16 03/25/16 18:59 06:59 18:59 Intake Total 1080 180 120 Output Total 1350 2350 400 Balance -270 -2170 -280 Weight 117.4 kg 116.6 kg Intake: Oral 1080 180 120 Output: Urine 1350 2350 400 Other: Voiding Method Bedside Commode Bedside Commode Bedside Commode Bedpan # Voids 2 - Exam PHYSICAL EXAMINATION: HEENT: Head is atraumatic, normocephalic. Pupils equal, round. Neck is supple. There is no elevated jugular venous pressure. HEART EXAMINATION: S1 and S2 irregular irregular CHEST EXAMINATION: Lungs reveal diminished air entry to bilateral bases ABDOMEN: Abdomen is morbidly obese, no tenderness noted. Abdominal apron is reaching to the patient's upper thighs. She also has a large incisional hernia unchanged from prior.. EXTREMITIES: 1+ peripheral pulses with trace evidence of peripheral edema and no calf tenderness noted. NEUROLOGIC patient is awake, alert and oriented -3. - Labs CBC & Chem 7: 03/25/16 05:57 03/25/16 05:53 Labs: Abnormal Lab Results - Last 24 Hours (Table) 03/25/16 03/25/16 03/25/16 Range/Units 01:49 05:34 05:53 WBC (3.8-10.6) k/uL RBC (3.80-5.40) m/uL Hgb (11.4-16.0) gm/dL Hct (34.0-46.0) % RDW (11.5-15.5) % Sodium 134 L (137-145) mmol/L Chloride 86 L (98-107) mmol/L Carbon Dioxide 36 H (22-30) mmol/L BUN 54 H (7-17) mg/dL Creatinine 1.20 H (0.52-1.04) mg/dL POC Glucose (mg/dL) 61 L 53 L (75-99) mg/dL Calcium 10.4 H (8.4-10.2) mg/dL 03/25/16 03/25/16 03/25/16 Range/Units 05:57 06:17 11:40 WBC 10.7 H (3.8-10.6) k/uL RBC 3.60 L (3.80-5.40) m/uL Hgb 10.0 L (11.4-16.0) gm/dL Hct 31.5 L (34.0-46.0) % RDW 15.8 H (11.5-15.5) % Sodium (137-145) mmol/L Chloride (98-107) mmol/L Carbon Dioxide (22-30) mmol/L BUN (7-17) mg/dL Creatinine (0.52-1.04) mg/dL POC Glucose (mg/dL) 179 H 140 H (75-99) mg/dL Calcium (8.4-10.2) mg/dL Assessment and Plan Plan: Plan: Assessment and plan #1 acute onset of shortness of breath, diastolic congestive heart failure acute on chronic #2 persistent atrial fibrillation, on xarelto #3 morbid obesity #4 asthma #5 obstructive sleep apnea #6 diabetes #7 hyperlipidemia #8 large anterior abdominal wall incisional hernia Plan IV Lasix will be discontinued and patient will be started on oral diuretics. Arrangements are being made for her to be transferred to rehab at [facility]. Follow-up appointment will be made post discharge. DNP note has been reviewed, I agree with a documented findings and plan of care. Patient was seen and examined.
[2016-03-25 13:44] VITALS: PULSE 67
[2016-03-25] MEDS ORDERED: FUROSEMIDE 40 MG TAB PO SCH (16:00)
== END 2016-03-25 17:22 | DRG 292 ==
LOC: EC 12:55 → 6SEL 17:08
PROVIDERS: ADMIT Family Medicine; ATTEND Family Medicine
DX: I11.0 Hypertensive heart disease with heart failure (principal); J96.11 Chronic respiratory failure with hypoxia; Z99.81 Dependence on supplemental oxygen; I48.2 Chronic atrial fibrillation; E11.65 Type 2 diabetes mellitus with hyperglycemia; I48.1 Persistent atrial fibrillation; Z68.43 Body mass index [BMI] 50.0-59.9, adult; J44.9 Chronic obstructive pulmonary disease, unspecified; E66.01 Morbid (severe) obesity due to excess calories; N28.1 Cyst of kidney, acquired; G47.33 Obstructive sleep apnea (adult) (pediatric); I50.33 Acute on chronic diastolic (congestive) heart failure; D63.8 Anemia in other chronic diseases classified elsewhere; D72.829 Elevated white blood cell count, unspecified; M54.16 Radiculopathy, lumbar region; E78.5 Hyperlipidemia, unspecified; J98.4 Other disorders of lung; K43.2 Incisional hernia without obstruction or gangrene; J45.909 Unspecified asthma, uncomplicated; N28.9 Disorder of kidney and ureter, unspecified; T38.0X5A Adverse effect of glucocorticoids and synthetic analogues, initial encounter; D53.9 Nutritional anemia, unspecified; G89.29 Other chronic pain; F41.1 Generalized anxiety disorder; R41.3 Other amnesia; H91.90 Unspecified hearing loss, unspecified ear; F32.9 Major depressive disorder, single episode, unspecified; M54.9 Dorsalgia, unspecified; R62.7 Adult failure to thrive; Z79.84 Long term (current) use of oral hypoglycemic drugs; Z86.11 Personal history of tuberculosis; Z79.82 Long term (current) use of aspirin; Z79.02 Long term (current) use of antithrombotics/antiplatelets; Z79.52 Long term (current) use of systemic steroids; Z79.899 Other long term (current) drug therapy; Z87.440 Personal history of urinary (tract) infections; Z88.5 Allergy status to narcotic agent; Z91.048 Other nonmedicinal substance allergy status; Z98.49 Cataract extraction status, unspecified eye; Z82.3 Family history of stroke; Z78.0 Asymptomatic menopausal state
CPT/HCPCS: 36415; 71020; 80048; 80053; 82550; 82553; 83036; 83735; 83880; 84484; 85025; 85379; 85610; 85730; 93005; 94640; 94760; 96365; 96367; 96375; 99285

== ENCOUNTER 2016-05-13 15:36 | Inpatient (IN) | payer MEDICARE ==
[2016-05-13] MEDS ORDERED: NITROGLYCERIN OINT 1 INCH/GM PACKET TOPICAL STA (15:39)
[2016-05-13] MEDS ORDERED: FUROSEMIDE 10 MG/ML 4 ML VIAL IV STA (15:39)
--- NOTE | 2016-05-13 15:43 | ED ---
SOB HPI - General Stated Complaint: SOB Time Seen by Provider: 05/13/16 15:36 Source: patient, EMS, RN notes reviewed, old records reviewed Mode of arrival: EMS - History of Present Illness Initial Comments: This is a 65-year-old female history of chronic lung issues who is noncompliant with her updrafts who called EMS today because in addition to her shortness of breath she had edema to her lower extremities she denies any chest pain fevers chills or sweats. She did get an updraft was administered by paramedics which did help her breathing somewhat. MD Complaint: shortness of breath - Related Data Home Medications Medication Instructions Recorded Confirmed Sertraline [Zoloft] 50 mg PO HS 01/17/14 05/13/16 Montelukast Sodium [Singulair] 10 mg PO HS 10/10/15 05/13/16 Potassium Chloride ER [K-Dur 20] 20 meq PO DAILY 03/04/16 05/13/16 Aspirin 325 mg PO DAILY 05/13/16 05/13/16 Atorvastatin [Lipitor] 40 mg PO DAILY 05/13/16 05/13/16 Budesonide/Formoterol Fumarate 2 puff INHALATION RT-BID 05/13/16 05/13/16 [Symbicort 160-4.5 Mcg Inhaler] Clopidogrel [Plavix] 75 mg PO DAILY 05/13/16 05/13/16 Insulin Aspart Protam & Aspart 15 unit SQ HS 05/13/16 05/13/16 [NovoLOG MIX 70-30 Flexpen] Insulin Aspart Protam & Aspart 25 unit SQ QAM 05/13/16 05/13/16 [NovoLOG MIX 70-30 Flexpen] Allergies Allergy/AdvReac Type Severity Reaction Status Date / Time adhesive Allergy Rash/Hives Verified 03/22/16 13:43 codeine AdvReac Rash/Hives Verified 05/13/16 16:43 Review of Systems ROS Statement: Those systems with pertinent positive or pertinent negative responses have been documented in the HPI. ROS Other: All systems not noted in ROS Statement are negative. Past Medical History Past Medical History: Atrial Fibrillation, Asthma, COPD, Diabetes Mellitus, Hyperlipidemia Additional Past Medical History / Comment(s): Morbid obesity, COPD, bronchial asthma, diabetes mellitus, hyperlipidemia, large anterior abdominal wall hernia , obstructive sleep apnea maintained on CPAP on outpatient basis, back pain, generalized anxiety disorder, lumbar radiculopathy, kidney cysts, 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 Chronic atrial fibrillation, chronic restrictive and obstructive lung disease secondary to morbid obesity and underlying bronchial asthma, chronic anemia History of Any Multi-Drug Resistant Organisms: None Reported Past Surgical History: Breast Surgery, Hernia Repair Additional Past Surgical History / Comment(s): cataracts Past Anesthesia/Blood Transfusion Reactions: No Reported Reaction Past Psychological History: Anxiety Smoking Status: Never smoker Past Alcohol Use History: None Reported Past Drug Use History: None Reported - Past Family History Mother Family Medical History: CVA/TIA General Exam - General Exam Comments Initial Comments: Is a well-developed obese female. She is awake alert oriented 3 General appearance: alert, in distress Head exam: Present: atraumatic, normocephalic, normal inspection Eye exam: Present: normal appearance, PERRL, EOMI. Absent: scleral icterus, conjunctival injection, periorbital swelling ENT exam: Present: normal exam, mucous membranes moist Neck exam: Present: normal inspection. Absent: tenderness, meningismus, lymphadenopathy Respiratory exam: Present: decreased breath sounds. Absent: respiratory distress, wheezes, rales, rhonchi, stridor Cardiovascular Exam: Present: tachycardia, irregular rhythm. Absent: systolic murmur, diastolic murmur, rubs, gallop, clicks GI/Abdominal exam: Present: soft, normal bowel sounds. Absent: distended, tenderness, guarding, rebound, rigid Extremities exam: Present: full ROM, normal capillary refill, pedal edema, other (EDEMA FROM THE FEET TO THE LOWER EXTREMITIES UP TO THE KNEES. +2-3). Absent: tenderness, joint swelling, calf tenderness Back exam: Present: normal inspection Neurological exam: Present: alert, oriented X3, CN II-XII intact Psychiatric exam: Present: normal affect, normal mood Skin exam: Present: warm, dry, intact, normal color. Absent: rash Course Vital Signs 05/13/16 05/13/16 15:37 17:06 Temperature 99.2 F Pulse Rate 141 H 141 H Respiratory 28 H 26 H Rate Blood Pressure 183/113 141/89 O2 Sat by Pulse 98 98 Oximetry - Reevaluation(s) Reevaluation #1: 05/13/16 17:15 H and he gets some relief after initial treatment. Medical Decision Making - Medical Decision Making I did discuss findings with the patient and her family she will be admitted for treatment of rapid atrial fibrillation as well as CHF. I did discuss the case with Dr. Taylor. Psychiatry will be consulted to dressing on complaints issue - Lab Data Result diagrams: 05/13/16 15:50 05/13/16 15:50 Lab Results 05/13/16 05/13/16 05/13/16 Range/Units 15:50 15:50 15:50 WBC 8.8 (3.8-10.6) k/uL RBC 3.36 L (3.80-5.40) m/uL Hgb 8.7 L (11.4-16.0) gm/dL Hct 29.0 L (34.0-46.0) % MCV 86.3 D (80.0-100.0) fL MCH 25.8 (25.0-35.0) pg MCHC 29.9 L (31.0-37.0) g/dL RDW 16.1 H (11.5-15.5) % Plt Count 427 (150-450) k/uL Neutrophils % (Manual) 73.0 % Band Neutrophils % 3.0 % Lymphocytes % (Manual) 17.0 % Monocytes % (Manual) 6.0 % Eosinophils % (Manual) 1.0 % Neutrophils # (Manual) 6.7 (1.3-7.7) k/uL Lymphocytes # (Manual) 1.5 (1.0-4.8) k/uL Monocytes # (Manual) 0.5 (0-1.0) k/uL Eosinophils # (Manual) 0.1 (0-0.7) k/uL Nucleated RBCs 0 (0-0) /100 WBC Manual Slide Review Performed Polychromasia Present Hypochromasia Marked Poikilocytosis Moderate Poikilocytosis (manual Present Anisocytosis Slight PT (9.0-12.0) sec INR (<1.1) APTT (22.0-30.0) sec Sodium 133 L (137-145) mmol/L Potassium 4.8 (3.5-5.1) mmol/L Chloride 92 L (98-107) mmol/L Carbon Dioxide 30 (22-30) mmol/L Anion Gap 11 mmol/L BUN 12 (7-17) mg/dL Creatinine 0.89 (0.52-1.04) mg/dL Est GFR (MDRD) Af Amer >60 (>60 ml/min/1.73 sqM) Est GFR (MDRD) Non-Af >60 (>60 ml/min/1.73 sqM) Glucose 193 H (74-99) mg/dL Calcium 9.9 (8.4-10.2) mg/dL Magnesium 1.7 (1.6-2.3) mg/dL Total Bilirubin 0.7 (0.2-1.3) mg/dL AST 15 (14-36) U/L ALT 20 (9-52) U/L Alkaline Phosphatase 86 (38-126) U/L Total Creatine Kinase <20 L (30-135) U/L CK-MB (CK-2) 1.0 (0.0-2.4) ng/mL CK-MB (CK-2) Rel Index 0.0 Troponin I 0.041 H* (0.000-0.034) ng/mL NT-Pro-B Natriuret Pep pg/mL Total Protein 6.4 (6.3-8.2) g/dL Albumin 3.4 L (3.5-5.0) g/dL 05/13/16 05/13/16 Range/Units 15:50 15:50 WBC (3.8-10.6) k/uL RBC (3.80-5.40) m/uL Hgb (11.4-16.0) gm/dL Hct (34.0-46.0) % MCV (80.0-100.0) fL MCH (25.0-35.0) pg MCHC (31.0-37.0) g/dL RDW (11.5-15.5) % Plt Count (150-450) k/uL Neutrophils % (Manual) % Band Neutrophils % % Lymphocytes % (Manual) % Monocytes % (Manual) % Eosinophils % (Manual) % Neutrophils # (Manual) (1.3-7.7) k/uL Lymphocytes # (Manual) (1.0-4.8) k/uL Monocytes # (Manual) (0-1.0) k/uL Eosinophils # (Manual) (0-0.7) k/uL Nucleated RBCs (0-0) /100 WBC Manual Slide Review Polychromasia Hypochromasia Poikilocytosis Poikilocytosis (manual Anisocytosis PT 11.9 (9.0-12.0) sec INR 1.2 (<1.1) APTT 23.0 (22.0-30.0) sec Sodium (137-145) mmol/L Potassium (3.5-5.1) mmol/L Chloride (98-107) mmol/L Carbon Dioxide (22-30) mmol/L Anion Gap mmol/L BUN (7-17) mg/dL Creatinine (0.52-1.04) mg/dL Est GFR (MDRD) Af Amer (>60 ml/min/1.73 sqM) Est GFR (MDRD) Non-Af (>60 ml/min/1.73 sqM) Glucose (74-99) mg/dL Calcium (8.4-10.2) mg/dL Magnesium (1.6-2.3) mg/dL Total Bilirubin (0.2-1.3) mg/dL AST (14-36) U/L ALT (9-52) U/L Alkaline Phosphatase (38-126) U/L Total Creatine Kinase (30-135) U/L CK-MB (CK-2) (0.0-2.4) ng/mL CK-MB (CK-2) Rel Index Troponin I (0.000-0.034) ng/mL NT-Pro-B Natriuret Pep 8870 pg/mL Total Protein (6.3-8.2) g/dL Albumin (3.5-5.0) g/dL - EKG Data -: EKG Interpreted by Me (Atrial flutter with 21 AV conduction rate rate was 141 QRS of 86 QT/QTC of ) - Radiology Data Radiology results: report reviewed (I did review the x-ray report or is some evidence of CHF), image reviewed Critical Care Time Critical Care Time: Yes Critical Care Time: 37 minutes of critical care time which includes initial monitoring of the EMS run and discussed with paramedics. Initial evaluation with history physical lab and x-rays on the patient reevaluation patient response to therapy. Review of old charting. Discussion with the admitting physician discussion with the patient and family. Documentation of the above admission orders. Disposition Clinical Impression: Rapid atrial fibrillation, Congestive heart failure (CHF) Disposition: ADMITTED IP TO THIS HOSP Condition: Stable
[2016-05-13 16:14] LABS: Anisocytosis Slight; Aty Lym Flag Slight; CH 25.6; CHCM 29.7; HDW 4.09; HGB 8.7 gm/dL (11.4-16.0); Hypochromasia Marked; MCH 25.8 pg (25.0-35.0); MCHC 29.9 g/dL (31.0-37.0); Mean Platelet Volume 7.2; Poikilocytosis Moderate; RBC 3.36 m/uL (3.80-5.40); RDW 16.1 % (11.5-15.5); WBC 8.8 k/uL (3.8-10.6); WBC (Perox) 9.16
[2016-05-13 16:18] LABS: INR 1.2 (<1.1); Prothrombin Time 11.9 sec (9.0-12.0)
[2016-05-13 16:19] LABS: ALT 20 U/L (9-52); AST 15 U/L (14-36); Alkaline Phosphatase 86 U/L (38-126); Anion Gap 11 mmol/L; Blood Urea Nitrogen 12 mg/dL (7-17); Calcium 9.9 mg/dL (8.4-10.2); Carbon Dioxide 30 mmol/L (22-30); Chloride 92 mmol/L (98-107); Glucose 193 mg/dL (74-99); Magnesium 1.7 mg/dL (1.6-2.3); Non-African American GFR(MDRD) >60 (>60 ml/min/1.73 sqM); Potassium 4.8 mmol/L (3.5-5.1); Sodium 133 mmol/L (137-145); Total Bilirubin 0.7 mg/dL (0.2-1.3); Total Protein 6.4 g/dL (6.3-8.2)
[2016-05-13 16:20] LABS: Creatine Kinase <20 U/L (30-135)
[2016-05-13 16:24] LABS: MCV 86.3 fL (80.0-100.0)
[2016-05-13] MEDS ORDERED: DILTIAZEM 125 MG in SODIUM CHLORIDE 0.9% 100 ML IV ONE (16:26)
[2016-05-13 16:36] LABS: Add Differential Manual Differential
--- NOTE | 2016-05-13 16:38 | XR ---
EXAMINATION TYPE: XR chest 2V DATE OF EXAM: 05/13/2016 4:14 PM COMPARISON: 03/22/2016 HISTORY: 65-year-old female difficulty breathing TECHNIQUE: Frontal and lateral views FINDINGS: Large body habitus and portable technique limiting the evaluation. There is underpenetration of the c hest. Heart appears enlarged. Suspect small effusions and increased opacities at the mid and lower lesley ngs. IMPRESSION: Exam limited by portable technique and large body habitus. There is cardiomegaly, mid and lower lung densities, and suspected small effusions. Correlate for CHF with mild pulmonary edema.
[2016-05-13 16:39] LABS: Nucleated Red Blood Cells 0 /100 WBC (0-0); Total Cells Counted 100
[2016-05-13 16:41] LABS: Manual Review Performed; Polychromasia Present
[2016-05-13 16:47] LABS: Troponin I 0.041 ng/mL (0.000-0.034)
[2016-05-13] MEDS ORDERED: HEPARIN SODIUM,PORCINE 5,000 UNIT/ML 1 ML VIAL IV ONE (17:23)
[2016-05-13] MEDS ORDERED: HEPARIN SODIUM,PORCINE/D5W PMX 25,000 UNIT in DEXTROSE/WATER 1 500ML.BAG IV SCH ×2 (17:30→18:00)
[2016-05-13] MEDS: SODIUM CHLORIDE 0.9% 1,000 ML IV SCH (17:55)
[2016-05-13] MEDS: IPRATROPIUM-ALBUTEROL 3 ML NEB INHALATION SCH ×2 (19:00→23:14)
[2016-05-13 19:38] LABS: Glucose,Whole Blood 191 mg/dL (75-99)
[2016-05-13 20:15] LABS: Hemoglobin A1C 6.7 % (4.2-6.1)
[2016-05-13 20:39] LABS: Glucose,Whole Blood 228 mg/dL (75-99)
[2016-05-13] MEDS ORDERED: SERTRALINE 50 MG TAB PO SCH (21:00)
[2016-05-13] MEDS: LORazepam 2 MG/ML SYRINGE IV PRN (22:20)
[2016-05-13] MEDS: INSULN ASP PRT/INSULIN ASPART 100 UNIT/ML 10 ML VIAL SQ SCH (22:28)
[2016-05-13] MEDS: MONTELUKAST 10 MG TAB PO SCH (22:28)
[2016-05-13] MEDS: INSULIN LISPRO (humaLOG) 300 UNIT/3 ML VIAL SQ SCH ×2 (22:28→22:30)
[2016-05-13] MEDS: NITROGLYCERIN OINT 1 INCH/GM PACKET TOPICAL SCH ×2 (22:30→22:36)
[2016-05-13] MEDS ORDERED: IPRATROPIUM-ALBUTEROL 3 ML NEB INHALATION PRN (23:15)
[2016-05-14] MEDS: FUROSEMIDE 10 MG/ML 4 ML VIAL IV SCH ×3 (04:32→17:01)
[2016-05-14] MEDS: LORazepam 2 MG/ML SYRINGE IV PRN (05:34)
[2016-05-14 06:10] LABS: Glucose,Whole Blood 117 mg/dL (75-99)
[2016-05-14 07:15] LABS: Anisocytosis Slight; Basophils # (A) 0.1 k/uL (0-0.2); Basophils % (A) 1 %; CH 25.4; CHCM 29.6; Eosinophils # (A) 0.1 k/uL (0-0.7); Eosinophils % (A) 1 %; HCT 25.7 % (34.0-46.0); HDW 4.06; HGB 7.6 gm/dL (11.4-16.0); Hypochromasia Marked; Luc # (Auto) 0.27; Luc % (Auto) 3; Lymphocytes # (A) 1.7 k/uL (1.0-4.8); Lymphocytes % (A) 21 %; MCH 25.5 pg (25.0-35.0); MCHC 29.6 g/dL (31.0-37.0); MCV 86.2 fL (80.0-100.0); Mean Platelet Volume 6.8; Monocytes # (A) 0.6 k/uL (0-1.0); Monocytes % (A) 7 %; Neutrophils # (A) 5.2 k/uL (1.3-7.7); Neutrophils % (A) 66 %; Poikilocytosis Moderate; RBC 2.98 m/uL (3.80-5.40); RDW 16.1 % (11.5-15.5); WBC (Perox) 8.29
[2016-05-14 07:38] LABS: ALT 21 U/L (9-52); AST 14 U/L (14-36); Alkaline Phosphatase 70 U/L (38-126); Anion Gap 8 mmol/L; Blood Urea Nitrogen 13 mg/dL (7-17); Calcium 9.5 mg/dL (8.4-10.2); Carbon Dioxide 32 mmol/L (22-30); Chloride 95 mmol/L (98-107); Glucose 105 mg/dL (74-99); Non-African American GFR(MDRD) 59 (>60 ml/min/1.73 sqM); Potassium 4.3 mmol/L (3.5-5.1); Sodium 135 mmol/L (137-145); Total Bilirubin 0.7 mg/dL (0.2-1.3); Total Protein 5.5 g/dL (6.3-8.2)
[2016-05-14] MEDS: INSULIN LISPRO (humaLOG) 300 UNIT/3 ML VIAL SQ SCH ×4 (07:40→22:07)
[2016-05-14] MEDS: INSULN ASP PRT/INSULIN ASPART 100 UNIT/ML 10 ML VIAL SQ SCH ×2 (07:45→22:08)
[2016-05-14] MEDS: NITROGLYCERIN OINT 1 INCH/GM PACKET TOPICAL SCH (07:51)
[2016-05-14] MEDS: ATORVASTATIN 40 MG TAB PO SCH (07:52)
[2016-05-14] MEDS: POTASSIUM CHLORIDE ER 20 MEQ TAB.ER PO SCH (07:52)
--- NOTE | 2016-05-14 08:50 | P.CRDCN ---
History of Present Illness Consult date: 05/14/16 Requesting physician: John Taylor Consult reason: shortness of breath Chief complaint: Shortness of breath History of present illness: This is a 65-year-old female with known history of COPD and emphysema , diabetes, hyperlipidemia, morbid obesity, chronic persistent atrial fibrillation, who presented to the hospital with symptoms of progressively worsening dyspnea. She states that the symptoms came on somewhat suddenly approximately 2-3 days ago. She denies any fever or chills, mild cough. Denies chest pain, denies palpitations. EKG on admission shows atrial fibrillation with a rapid ventricular response. Chest x-ray somewhat limited however there is suspicion of small bilateral effusions and mild pulmonary edema. Laboratory data was reviewed, hemoglobin on admission 8.7, 7.6 this morning. Platelet count 366. Potassium 4.3, BUN 13, creatinine 0.9. Troponin 0.041. BNP level 8870. Magnesium level I.7. Blood pressure on arrival 183/ 113 with a heart rate of 140. 98% on 2 L with a low-grade temperature of 99.2. This morning her blood pressure is 138/70, heart rate 118 96 percent on 4 L of oxygen. Patient does state that her breathing is already somewhat improved from admission, was very tired this morning. She was initiated on IV Lasix on presentation here, diuresing well, weight is down. 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 Chronic atrial fibrillation, chronic restrictive and obstructive lung disease secondary to morbid obesity and underlying bronchial asthma, chronic anemia History of Any Multi-Drug Resistant Organisms: None Reported Past Surgical History: Breast Surgery, Hernia Repair Additional Past Surgical History / Comment(s): cataracts Past Anesthesia/Blood Transfusion Reactions: No Reported Reaction Past Psychological History: Anxiety Additional Psychological History / Comment(s): pt lives in own home, neice/ nephew live with her and drive pt to her appts. no home care services. pt uses a walker when up. has home o2, bsc, lift bed, walker. Smoking Status: Never smoker Past Alcohol Use History: None Reported Past Drug Use History: None Reported - Past Family History Mother Family Medical History: CVA/TIA Father Additional Family Medical History / Comment(s): WAS INJURED IN [place], also had hx tb but from complications of his injuries Brother(s) Additional Family Medical History / Comment(s): at age 2 years 10months tb Medications and Allergies Home Medications Medication Instructions Recorded Confirmed Type Sertraline [Zoloft] 50 mg PO HS 01/17/14 05/13/16 History Montelukast Sodium [Singulair] 10 mg PO HS 10/10/15 05/13/16 History Potassium Chloride ER [K-Dur 20] 20 meq PO DAILY 03/04/16 05/13/16 History Aspirin 325 mg PO DAILY 05/13/16 05/13/16 History Atorvastatin [Lipitor] 40 mg PO DAILY 05/13/16 05/13/16 History Budesonide/Formoterol Fumarate 2 puff INHALATION RT-BID 05/13/16 05/13/16 History [Symbicort 160-4.5 Mcg Inhaler] Clopidogrel [Plavix] 75 mg PO DAILY 05/13/16 05/13/16 History Insulin Aspart Protam & Aspart 15 unit SQ HS 05/13/16 05/13/16 History [NovoLOG MIX 70-30 Flexpen] Insulin Aspart Protam & Aspart 25 unit SQ QA 05/13/16 05/13/16 History [NovoLOG MIX 70-30 Flexpen] Allergies Allergy/AdvReac Type Severity Reaction Status Date / Time adhesive Allergy Rash/Hives Verified 03/22/16 13:43 codeine AdvReac Rash/Hives Verified 05/13/16 16:43 Physical Exam Vitals: Vital Signs Temp Pulse Pulse Resp BP BP Pulse Ox 05/14/16 04:00 97.2 F L 118 H 19 139/70 96 05/14/16 00:00 97.4 F L 103 H 19 150/72 100 05/13/16 20:00 121 H 18 05/13/16 19:11 100 05/13/16 19:10 121 H 16 142/63 95 05/13/16 19:01 100 05/13/16 17:27 101 H 26 H 124/62 95 Intake and Output 05/13/16 05/14/16 05/14/16 22:59 06:59 14:59 Intake Total 561 164.15 Output Total 350 1200 Balance -350 -639 164.15 Intake: IV 40 Diltiazem 125 mg In 40 Sodium Chloride 0.9% 100 ml @ 5 MG/HR 5 mls/hr IV .Q24H ONE Rx#:[id number] Intake, IV Titration 301 164.15 Amount Heparin Sodium,Porcine/ 160 D5w Pmx 25,000 unit In Dextrose/Water 1 500ml. bag @ 7 UNITS/KG/HR 19.05 mls/hr IV .Q24H SHAGUFTA Rx#: [id number] Heparin Sodium,Porcine/ 141 164.15 D5w Pmx 25,000 unit In Dextrose/Water 1 500ml. bag @ 7.35 UNITS/KG/HR 20 mls/hr IV .Q24H SHAGUFTA Rx#: [id number] Oral 220 Output: Urine 350 1200 Other: Voiding Method Bedside Commode Bedside Commode Weight 129.1 kg PHYSICAL EXAMINATION: HEENT: Head is atraumatic, normocephalic. Pupils equal, round. Neck is supple. There is no elevated jugular venous pressure. HEART EXAMINATION: Heart S1 and S2 irregularly irregular CHEST EXAMINATION: Lungs are clear with diminished air entry to the bases ABDOMEN: Soft, obese, nontender. Bowel sounds are heard. No organomegaly noted. EXTREMITIES: 1+ peripheral pulses with 1+ evidence of peripheral edema and no calf tenderness noted. NEUROLOGIC patient is awake, alert and oriented -3. . Results 05/14/16 06:30 05/14/16 06:30 Cardiac Enzymes 05/14/16 Range/Units 06:30 AST 14 (14-36) U/L Coagulation 05/14/16 05/14/16 Range/Units 00:01 06:30 APTT 28.9 39.3 H (22.0-30.0) sec CBC 05/14/16 Range/Units 06:30 WBC 8.0 (3.8-10.6) k/uL RBC 2.98 L (3.80-5.40) m/uL Hgb 7.6 L (11.4-16.0) gm/dL Hct 25.7 L (34.0-46.0) % Plt Count 366 (150-450) k/uL Comprehensive Metabolic Panel 05/14/16 Range/Units 06:30 Sodium 135 L (137-145) mmol/L Potassium 4.3 (3.5-5.1) mmol/L Chloride 95 L (98-107) mmol/L Carbon Dioxide 32 H (22-30) mmol/L BUN 13 (7-17) mg/dL Creatinine 0.95 (0.52-1.04) mg/dL Glucose 105 H (74-99) mg/dL Calcium 9.5 (8.4-10.2) mg/dL AST 14 (14-36) U/L ALT 21 (9-52) U/L Alkaline Phosphatase 70 (38-126) U/L Total Protein 5.5 L (6.3-8.2) g/dL Albumin 2.9 L (3.5-5.0) g/dL Current Medications Generic Name Dose Route Start Last Admin Trade Name Freq PRN Reason Stop Dose Admin Albuterol/Ipratropium 3 ml 05/14/16 08:00 Duoneb 0.5 Mg-3 Mg/3 Ml Soln INHALATION RT-QID SHAGUFTA Albuterol/Ipratropium 3 ml 05/13/16 23:15 Duoneb 0.5 Mg-3 Mg/3 Ml Soln INHALATION RT-Q2H PRN Shortness Of Breath Or Wheezing Aspirin 325 mg 05/14/16 09:00 05/14/16 07:51 Aspirin PO 325 mg DAILY SHAGUFTA Administration Atorvastatin Calcium 40 mg 05/14/16 09:00 05/14/16 07:52 Lipitor PO 40 mg DAILY SHAGUFTA Administration Budesonide/Formoterol Fumarate 2 puff 05/14/16 20:00 Symbicort 160-4.5 Mcg Inhaler INHALATION RT-BID SHAGUFTA Clopidogrel Bisulfate 75 mg 05/14/16 09:00 05/14/16 07:51 Plavix PO 75 mg DAILY SHAGUFTA Administration Furosemide 40 mg 05/14/16 01:00 05/14/16 07:50 Lasix IV 40 mg Q8H SHAGUFTA Administration Diltiazem HCl 125 mg/ Sodium 125 mls @ 5 mls/hr 05/13/16 16:26 05/13/16 17:07 Chloride IV 05/14/16 16:25 5 mg/hr .Q24H ONE 5 mls/hr Protocol Administration 5 MG/HR Sodium Chloride 1,000 mls @ 20 mls/hr 05/13/16 17:30 05/13/16 17:55 Saline 0.9% IV 20 mls/hr .Q24H SHAGUFTA Administration Heparin Sodium/Dextrose 25,000 500 mls @ 20 mls/hr 05/13/16 18:00 05/14/16 07 :53 unit/ IV Solution IV 13.34 units/kg/hr .Q24H SHAGUFTA 36.3 mls/hr Protocol Titration 7.35 UNITS/KG/HR Insulin Aspart 25 unit 05/14/16 07:30 05/14/16 07:45 Novolog Mix 70-30 Vial SQ 25 unit W/BRKFST SHAGUFTA Administration Insulin Aspart 15 unit 05/13/16 21:00 05/13/16 22:28 Novolog Mix 70-30 Vial SQ 15 unit HS SHAGUFTA Administration Insulin Human Lispro 0 unit 05/13/16 17:30 05/14/16 07:40 Humalog SQ Not Given ACHS [facility] Protocol Lorazepam 0.5 mg 05/13/16 22:12 05/14/16 05:34 Ativan IV 0.5 mg Q8HR PRN Administration Anxiety Montelukast Sodium 10 mg 05/13/16 21:00 05/13/16 22:28 Singulair PO 10 mg HS SHAG[facility]FTA Administration Nitroglycerin 1 inch 05/13/16 18:00 05/14/16 07:51 Nitro-Bid Oint TOPICAL Not Given QID [facility] Potassium Chloride 20 meq 05/14/16 09:00 05/14/16 07:52 K-Dur 20 PO 20 meq DAILY SHAGUFTA Administration Sertraline HCl 50 mg 05/13/16 21:00 05/13/16 22:28 Zoloft PO 50 mg HS [facility]AG[facility] Administration Intake and Output 05/13/16 05/14/16 05/14/16 22:59 06:59 14:59 Intake Total 561 164.15 Output Total 350 1200 Balance -350 -639 164.15 Intake: IV 40 Diltiazem 125 mg In 40 Sodium Chloride 0.9% 100 ml @ 5 MG/HR 5 mls/hr IV .Q24H ONE Rx#:[id number] Intake, IV Titration 301 164.15 Amount Heparin Sodium,Porcine/ 160 D5w Pmx 25,000 unit In Dextrose/Water 1 500ml. bag @ 7 UNITS/KG/HR 19.05 mls/hr IV .Q24H [facility] Rx#: [id number] Heparin Sodium,Porcine/ 141 164.15 D5w Pmx 25,000 unit In Dextrose/Water 1 500ml. bag @ 7.35 UNITS/KG/HR 20 mls/hr IV .Q24H [facility]AG[facility] Rx#: [id number] Oral 220 Output: Urine 350 1200 Other: Voiding Method Bedside Commode Bedside Commode Weight 129.1 kg 05/14/16 06:30 05/14/16 06:30 EKG Interpretations (text) EKG shows atrial fibrillation with a rapid ventricular response Assessment and Plan Plan: Assessment and plan #1 symptoms of progressive dyspnea, combination of diastolic congestive heart failure acute on chronic, and exacerbation of COPD. Most recent echocardiogram with Doppler study was performed in February which revealed an ejection fraction of 50-55%. #2 chronic persistent atrial fibrillation, not currently on anticoagulation. According to recent documentation from prior admission, one of the newer anticoagulation agents were going to be initiated. She is currently on IV heparin. #3 COPD #4 diabetes # 5 hyperlipidemia #6 accelerated hypertension #7 A. fib with RVR #8 history of noncompliance #9 anemia, hemoglobin 7.6 this morning. #10 morbid obesity Plan We will not repeat an echocardiogram with Doppler study, patient recently had an echo performed in February which revealed an ejection fraction of 50-55%. We 'll continue IV heparin, continue IV Lasix. Discontinue Cardizem drip. Start the patient on a low-dose beta fauzia. Add a small dose of RIRI inhibitor for more optimal blood pressure control. Unsure why the patient is on Plavix, we' ll discontinue the Plavix, discontinue aspirin, initiate one of the newer anticoagulants and discontinue heparin. Further recommendations to follow. DNP note has been reviewed, I agree with a documented findings and plan of care. Patient was seen and examined.
[2016-05-14] MEDS ORDERED: CLOPIDOGREL 75 MG TAB PO SCH (09:00)
[2016-05-14] MEDS ORDERED: ASPIRIN 325 MG TAB PO SCH (09:00)
[2016-05-14] MEDS: IPRATROPIUM-ALBUTEROL 3 ML NEB INHALATION SCH ×4 (09:02→20:22)
[2016-05-14] MEDS: METOPROLOL TARTRATE 25 MG TAB PO SCH ×2 (10:26→22:08)
[2016-05-14] MEDS: LISINOPRIL 5 MG TAB PO SCH (10:26)
[2016-05-14 11:39] LABS: Glucose,Whole Blood 119 mg/dL (75-99)
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
[2016-05-14 15:36] VITALS: BMI 55.5
--- NOTE | 2016-05-14 16:11 | P.HPIM ---
History of Present Illness H&P Date: 05/14/16 Chief Complaint: Shortness of breath Patient is a 65-year-old female with medical history significant for asthma, COPD, urinary tract infection, chronic persistent atrial fibrillation, obstructive sleep apnea, morbid obesity, diabetes mellitus type 2, large anterior abdominal wall hernia, chronic back pain with lumbar radiculopathy, generalized anxiety, chronic hypoxic respiratory failure on home O2 at 2 L [id number], hypertension, anemia, and renal insufficiency. Patient presented to the emergency department with shortness of breath that started approximately 2-3 days ago associated with increased swelling to her lower extremities.. No history of fevers, chills, cough. No history of chest pain. Chest x-ray on admission with evidence of small bilateral effusions and mild pulmonary edema, BNP level 8870 consistent with acute diastolic congestive heart failure. Patient was also noted to be in atrial fibrillation with rapid ventricular response. Blood pressure on arrival 183/113. Patient was admitted to the selective care unit with consult requested for cardiology service. Patient was started on IV Cardizem and IV Lasix. Upon arrival to the unit, patient was trying to leave the hospital AGAINST MEDICAL ADVICE and consult was requested for psychiatry service. Upon examination, patient reports improvement in breathing. Denies chills, nausea, vomiting, chest pain, or abdominal pain. Afebrile. Heart rate 120. Blood pressure 122/66. Oxygen saturation 94% on 4 L nasal cannula. 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 Chronic atrial fibrillation, chronic restrictive and obstructive lung disease secondary to morbid obesity and underlying bronchial asthma, chronic anemia History of Any Multi-Drug Resistant Organisms: None Reported Past Surgical History: Breast Surgery, Hernia Repair Additional Past Surgical History / Comment(s): cataracts Past Anesthesia/Blood Transfusion Reactions: No Reported Reaction Past Psychological History: Anxiety Additional Psychological History / Comment(s): pt lives in own home, neice/ nephew live with her and drive pt to her appts. no home care services. pt uses a walker when up. has home o2, bsc, lift bed, walker. Smoking Status: Never smoker Past Alcohol Use History: None Reported Past Drug Use History: None Reported - Past Family History Mother Family Medical History: CVA/TIA Father Additional Family Medical History / Comment(s): WAS INJURED IN [place], also had hx tb but from complications of his injuries Brother(s) Additional Family Medical History / Comment(s): at age 2 years 10months tb Medications and Allergies Home Medications Medication Instructions Recorded Confirmed Type Sertraline [Zoloft] 50 mg PO HS 01/17/14 05/13/16 History Montelukast Sodium [Singulair] 10 mg PO HS 10/10/15 05/13/16 History Potassium Chloride ER [K-Dur 20] 20 meq PO DAILY 03/04/16 05/13/16 History Aspirin 325 mg PO DAILY 05/13/16 05/13/16 History Atorvastatin [Lipitor] 40 mg PO DAILY 05/13/16 05/13/16 History Budesonide/Formoterol Fumarate 2 puff INHALATION RT-BID 05/13/16 05/13/16 History [Symbicort 160-4.5 Mcg Inhaler] Clopidogrel [Plavix] 75 mg PO DAILY 05/13/16 05/13/16 History Insulin Aspart Protam & Aspart 15 unit SQ HS 05/13/16 05/13/16 History [NovoLOG MIX 70-30 Flexpen] Insulin Aspart Protam & Aspart 25 unit SQ QAM 05/13/16 05/13/16 History [NovoLOG MIX 70-30 Flexpen] Allergies Allergy/AdvReac Type Severity Reaction Status Date / Time adhesive Allergy Rash/Hives Verified 03/22/16 13:43 codeine AdvReac Rash/Hives Verified 05/13/16 16:43 Physical Exam Vitals: Vital Signs Temp Pulse Pulse Resp BP BP Pulse Ox 05/14/16 12:00 98 18 146/70 99 05/14/16 08:00 97.2 F L 119 H 18 122/66 94 L 05/14/16 04:00 97.2 F L 118 H 19 139/70 96 05/14/16 00:00 97.4 F L 103 H 19 150/72 100 05/13/16 20:00 121 H 18 05/13/16 19:11 100 05/13/16 19:10 121 H 16 142/63 95 05/13/16 19:01 100 05/13/16 17:27 101 H 26 H 124/62 95 Intake and Output 05/13/16 05/14/16 05/14/16 22:59 06:59 14:59 Intake Total 561 644.15 Output Total 350 1200 900 Balance -350 -639 -255.85 Intake: IV 40 Diltiazem 125 mg In 40 Sodium Chloride 0.9% 100 ml @ 5 MG/HR 5 mls/hr IV .Q24H [facility] Rx#:[id number] Intake, IV Titration 301 164.15 Amount Heparin Sodium,Porcine/ 160 D5w Pmx 25,000 unit In Dextrose/Water 1 500ml. bag @ 7 UNITS/KG/HR 19.05 mls/hr IV .Q24H [facility] Rx#: [id number] Heparin Sodium,Porcine/ 141 164.15 D5w Pmx 25,000 unit In Dextrose/Water 1 500ml. bag @ 7.35 UNITS/KG/HR 20 mls/hr IV .Q24H [facility] Rx#: [id number] Oral 220 480 Lipid 0 Diltiazem 125 mg In 0 Sodium Chloride 0.9% 100 ml @ 5 MG/HR 5 mls/hr IV .Q24H [facility] Rx#:[id number] Output: Urine 350 1200 900 Other: Voiding Method Bedside Commode Bedside Commode Bedside Commode # Voids 3 Weight 129.1 kg GENERAL: Pt awake and alert, well-nourished, and in no acute distress. HEAD: Atraumatic, normocephalic. EYES: Pupils equal, round, and reactive to light, extraocular movements intact, sclera anicteric, conjunctiva are normal. ENT: Moist mucous membranes. NECK:Supple without lymphadenopathy or JVD. LUNGS: Breath sounds diminished to auscultation bilaterally. HEART: Heart S1, S2, no S3 or S4. Irregularly irregular. No murmurs, rubs or gallops. ABDOMEN: Soft, morbidly obese, nontender, nondistended, normoactive bowel sounds. No guarding, no rebound. Large incisional hernia present. EXTREMITIES: 1+ peripheral pulses. 1+ bilateral lower extremity edema. No calf tenderness. NEUROLOGICAL: Pt oriented x 3. Cranial nerves II through XII grossly intact. Strength and sensation grossly intact. PSYCH: Normal mood, normal affect. SKIN: Warm, dry, intact. Normal turgor. No rashes or lesions. Results CBC & Chem 7: 05/14/16 06:30 05/14/16 06:30 Labs: Abnormal Lab Results - Last 24 Hours (Table) 05/13/16 05/13/16 05/14/16 Range/Units 19:36 20:36 06:09 RBC (3.80-5.40) m/uL Hgb (11.4-16.0) gm/dL Hct (34.0-46.0) % MCHC (31.0-37.0) g/dL RDW (11.5-15.5) % APTT (22.0-30.0) sec Sodium (137-145) mmol/L Chloride (98-107) mmol/L Carbon Dioxide (22-30) mmol/L Glucose (74-99) mg/dL POC Glucose (mg/dL) 191 H 228 H 117 H (75-99) mg/dL Total Protein (6.3-8.2) g/dL Albumin (3.5-5.0) g/dL 05/14/16 05/14/16 05/14/16 Range/Units 06:30 06:30 06:30 RBC 2.98 L (3.80-5.40) m/uL Hgb 7.6 L (11.4-16.0) gm/dL Hct 25.7 L (34.0-46.0) % MCHC 29.6 L (31.0-37.0) g/dL RDW 16.1 H (11.5-15.5) % APTT 39.3 H (22.0-30.0) sec Sodium 135 L (137-145) mmol/L Chloride 95 L (98-107) mmol/L Carbon Dioxide 32 H (22-30) mmol/L Glucose 105 H (74-99) mg/dL POC Glucose (mg/dL) (75-99) mg/dL Total Protein 5.5 L (6.3-8.2) g/dL Albumin 2.9 L (3.5-5.0) g/dL 05/14/16 Range/Units 11:37 RBC (3.80-5.40) m/uL Hgb (11.4-16.0) gm/dL Hct (34.0-46.0) % MCHC (31.0-37.0) g/dL RDW (11.5-15.5) % APTT (22.0-30.0) sec Sodium (137-145) mmol/L Chloride (98-107) mmol/L Carbon Dioxide (22-30) mmol/L Glucose (74-99) mg/dL POC Glucose (mg/dL) 119 H (75-99) mg/dL Total Protein (6.3-8.2) g/dL Albumin (3.5-5.0) g/dL Chest x-ray: report reviewed Thrombosis Risk Factor Assmnt - DVT/VTE Prophylaxis DVT/VTE Prophylaxis: Pharmacologic Prophylaxis ordered, Mechanical Prophylaxis ordered - Choose All That Apply Any of the Below Risk Factors Present?: Yes Each Factor Represents 1 point: Abnormal pulmonary function (COPD), Heart failure (<1month), Obesity (BMI >25), Serious lung disease incl. pneumonia (< 1month) Other Risk Factors: Yes Each Risk Factor Represents 2 Points: Age 61-74 years Other congenital or acquired thrombophilia - If yes, enter type in comment: No Thrombosis Risk Factor Assessment Total Risk Factor Score: 6 Thrombosis Risk Factor Assessment Level: High Risk Assessment and Plan Plan: Impression and plan: 1. Acute on chronic diastolic congestive heart failure. Cardiology has seen and evaluated patient. Continue IV Lasix. Patient has been started on low- dose beta fauzia. 2. Chronic bronchial asthma. Continue Singulair. 3. Chronic persistent atrial fibrillation with rapid ventricular response on admission. IV Cardizem has been discontinued. Continue Xarelto. Continue metoprolol. 4. Obstructive sleep apnea maintained on CPAP on outpatient basis. 5. Diabetes mellitus type 2, uncontrolled. Continue to monitor blood sugars before meals at bedtime. Continue NovoLog Mix 70/30 and Humalog sliding scale per protocol. Continue consistent carbohydrate diet. 6. Large anterior abdominal wall hernia. Continue to monitor. 7. History of chronic back pain with lumbar radiculopathy. Continue pain management as needed. 8. Adjustment disorder with mixed anxiety and depression. Psychiatry service has seen and evaluated patient. Zoloft has been increased 100 mg daily. 9. Chronic hypoxic respiratory failure on home oxygen [id number]. Continue supplemental oxygen. Continue DuoNeb updrafts. 10. Hypertension. Continue metoprolol and lisinopril. 11. Anemia, normocytic, normochromic suspect secondary to chronic disease. 12. Super morbid obesity. 14. Chronic obstructive pulmonary disease. Continue Pulmicort, continue nebulized updraft treatments.. 15. Hyperlipidemia. Continue Lipitor. 16. DVT prophylaxis. Continue Xarelto and pneumatic compression sleeves to bilateral lower extremities. Consult PT/OT for possible subacute rehab placement. Consult social work for home living situation. The above impression and plan have been discussed and directed by Dr. Taylor. Christina RANKIN acting as scribe for Dr. Taylor.
[2016-05-14 16:43] LABS: Glucose,Whole Blood 130 mg/dL (75-99)
[2016-05-14] MEDS ORDERED: RIVAROXABAN 10 MG TAB PO SCH (17:30)
[2016-05-14] MEDS: SODIUM CHLORIDE 0.9% 1,000 ML IV SCH (18:43)
[2016-05-14] MEDS: SYMBICORT 160-4.5 MCG INHALER INHALATION SCH (20:22)
[2016-05-14 21:03] LABS: Glucose,Whole Blood 148 mg/dL (75-99)
[2016-05-14] MEDS: MONTELUKAST 10 MG TAB PO SCH (22:08)
[2016-05-15 01:24] VITALS: RESP 18
[2016-05-15] MEDS: FUROSEMIDE 10 MG/ML 4 ML VIAL IV SCH ×3 (02:26→17:11)
[2016-05-15 05:54] LABS: Glucose,Whole Blood 155 mg/dL (75-99)
[2016-05-15] MEDS: INSULN ASP PRT/INSULIN ASPART 100 UNIT/ML 10 ML VIAL SQ SCH ×2 (07:10→22:57)
[2016-05-15] MEDS: INSULIN LISPRO (humaLOG) 300 UNIT/3 ML VIAL SQ SCH ×4 (07:11→22:58)
[2016-05-15 07:28] LABS: Potassium 4.3 mmol/L (3.5-5.1)
[2016-05-15 07:52] LABS: Anisocytosis Slight; Aty Lym Flag Slight; CH 25.5; HCT 26.6 % (34.0-46.0); HDW 3.88; HGB 7.9 gm/dL (11.4-16.0); Hypochromasia Marked; MCH 25.6 pg (25.0-35.0); MCHC 29.9 g/dL (31.0-37.0); MCV 85.6 fL (80.0-100.0); Mean Platelet Volume 7.8; Poikilocytosis Slight; RDW 16.3 % (11.5-15.5); WBC 8.9 k/uL (3.8-10.6); WBC (Perox) 8.67
[2016-05-15] MEDS: ATORVASTATIN 40 MG TAB PO SCH (08:11)
[2016-05-15] MEDS: SERTRALINE 100 MG TAB PO SCH (08:12)
[2016-05-15] MEDS: METOPROLOL TARTRATE 25 MG TAB PO SCH ×2 (08:12→22:58)
[2016-05-15] MEDS: POTASSIUM CHLORIDE ER 20 MEQ TAB.ER PO SCH (08:12)
[2016-05-15] MEDS: LISINOPRIL 5 MG TAB PO SCH (08:12)
[2016-05-15] MEDS: SYMBICORT 160-4.5 MCG INHALER INHALATION SCH ×2 (09:02→19:52)
[2016-05-15] MEDS: IPRATROPIUM-ALBUTEROL 3 ML NEB INHALATION SCH ×4 (09:02→19:52)
[2016-05-15] MEDS: FAMOTIDINE 20 MG TAB PO SCH (09:03)
[2016-05-15 11:28] LABS: Add Differential Manual Differential
[2016-05-15 11:31] LABS: Manual Review Performed; Nucleated Red Blood Cells 0 /100 WBC (0-0); Polychromasia Present; Total Cells Counted 100
[2016-05-15 12:14] LABS: Glucose,Whole Blood 112 mg/dL (75-99)
--- NOTE | 2016-05-15 14:39 | P.PN ---
Subjective Principal diagnosis: CHF and atrial fibrillation This is a 65-year-old female with known history of COPD and emphysema , diabetes, hyperlipidemia, morbid obesity, chronic persistent atrial fibrillation, who presented to the hospital with symptoms of progressively worsening dyspnea. EKG on admission shows atrial fibrillation with a rapid ventricular response. Patient was initiated on IV Lasix, continues to diurese well overall. To be in atrial fibrillation with a controlled ventricular response. She was initiated today on xarelto 20 mg daily for anticoagulation. Blood pressure 126/60 with a heart rate in the 80s Objective - Vital Signs Vital signs: Vital Signs Temp 98.2 F 05/15/16 11:30 Pulse 88 05/15/16 11:30 Resp 18 05/15/16 11:30 BP 126/57 05/15/16 11:30 Pulse Ox 98 05/15/16 11:30 Intake & Output 05/14/16 05/15/16 05/15/16 18:59 06:59 18:59 Intake Total 644.15 600 480 Output Total 900 1400 950 Balance -255.85 -800 -470 Weight 129.1 kg 129.4 kg Intake: Intake, IV Titration 164.15 Amount Heparin Sodium,Porcine/ 164.15 D5w Pmx 25,000 unit In Dextrose/Water 1 500ml. bag @ 7.35 UNITS/KG/HR 20 mls/hr IV .Q24H [facility] Rx#: [id number] Oral 480 600 480 Lipid 0 Diltiazem 125 mg In 0 Sodium Chloride 0.9% 100 ml @ 5 MG/HR 5 mls/hr IV .Q24H [facility] Rx#:[id number] Output: Urine 900 1400 950 Other: Voiding Method Bedside Commode Bedside Commode Bedside Commode # Voids 3 2 - Exam PHYSICAL EXAMINATION: HEENT: Head is atraumatic, normocephalic. Pupils equal, round. Neck is supple. There is no elevated jugular venous pressure. HEART EXAMINATION: Heart S1 and S2 irregularly irregular CHEST EXAMINATION: Lungs are clear with diminished air entry to the bases ABDOMEN: Soft, obese, nontender. Bowel sounds are heard. No organomegaly noted. EXTREMITIES: 1+ peripheral pulses with 1+ evidence of peripheral edema and no calf tenderness noted. NEUROLOGIC patient is awake, alert and oriented -3. . - Labs CBC & Chem 7: 05/15/16 06:56 05/15/16 06:56 Labs: Abnormal Lab Results - Last 24 Hours (Table) 05/14/16 05/14/16 05/15/16 Range/Units 16:33 21:01 05:52 RBC (3.80-5.40) m/uL Hgb (11.4-16.0) gm/dL Hct (34.0-46.0) % MCHC (31.0-37.0) g/dL RDW (11.5-15.5) % Sodium (137-145) mmol/L Chloride (98-107) mmol/L Carbon Dioxide (22-30) mmol/L BUN (7-17) mg/dL Creatinine (0.52-1.04) mg/dL Glucose (74-99) mg/dL POC Glucose (mg/dL) 130 H 148 H 155 H (75-99) mg/dL 05/15/16 05/15/16 05/15/16 Range/Units 06:56 06:56 12:07 RBC 3.10 L (3.80-5.40) m/uL Hgb 7.9 L (11.4-16.0) gm/dL Hct 26.6 L (34.0-46.0) % MCHC 29.9 L (31.0-37.0) g/dL RDW 16.3 H (11.5-15.5) % Sodium 135 L (137-145) mmol/L Chloride 92 L (98-107) mmol/L Carbon Dioxide 35 H (22-30) mmol/L BUN 18 H (7-17) mg/dL Creatinine 1.20 H (0.52-1.04) mg/dL Glucose 130 H (74-99) mg/dL POC Glucose (mg/dL) 112 H (75-99) mg/dL Assessment and Plan Plan: Assessment and plan #1 symptoms of progressive dyspnea, combination of diastolic congestive heart failure acute on chronic, and exacerbation of COPD. Most recent echocardiogram with Doppler study was performed in February which revealed an ejection fraction of 50-55%. #2 chronic persistent atrial fibrillation, initiated today on xarelto. #3 COPD #4 diabetes # 5 hyperlipidemia #6 accelerated hypertension #7 A. fib with RVR #8 history of noncompliance #9 anemia, hemoglobin 7.6 this morning. #10 morbid obesity Plan We will continue current dose of IV Lasix. Check lytes BUN and creatinine in the morning. DNP note has been reviewed, I agree with a documented findings and plan of care. Patient was seen and examined.
--- NOTE | 2016-05-15 15:32 | P.PN ---
Subjective Patient is a 65-year-old female with medical history significant for asthma, COPD, urinary tract infection, chronic persistent atrial fibrillation, obstructive sleep apnea, morbid obesity, diabetes mellitus type 2, large anterior abdominal wall hernia, chronic back pain with lumbar radiculopathy, generalized anxiety, chronic hypoxic respiratory failure on home O2 at 2 L [id number], hypertension, anemia, and renal insufficiency. Patient presented to the emergency department with shortness of breath that started approximately 2-3 days ago associated with increased swelling to her lower extremities.. No history of fevers, chills, cough. No history of chest pain. Chest x-ray on admission with evidence of small bilateral effusions and mild pulmonary edema, BNP level 8870 consistent with acute diastolic congestive heart failure. Patient was also noted to be in atrial fibrillation with rapid ventricular response. Blood pressure on arrival 183/113. Patient was admitted to the selective care unit with consult requested for cardiology service. Patient was started on IV Cardizem and IV Lasix. Upon arrival to the unit, patient was trying to leave the hospital AGAINST MEDICAL ADVICE and consult was requested for psychiatry service. Upon examination, patient reports improvement in breathing. Denies chills, nausea, vomiting, chest pain, or abdominal pain. Afebrile. Heart rate 120. Blood pressure 122/66. Oxygen saturation 94% on 4 L nasal cannula. 05/15/2016: Patient is evaluated on selective care unit. Patient is feeling better and reports improvement in breathing. Patient continues in atrial fibrillation with controlled ventricular response with heart rate in the 80s. Blood pressure 126/60. Denies nausea, vomiting, chills, chest pain, or abdominal pain. Patient continues on IV Lasix. Cardiology is following patient. Discharge planning in progress for ECF. Objective - Vital Signs Vital signs: Vital Signs Temp 98.2 F 05/15/16 11:30 Pulse 88 05/15/16 11:30 Resp 18 05/15/16 11:30 BP 126/57 05/15/16 11:30 Pulse Ox 98 05/15/16 11:30 Intake & Output 05/14/16 05/15/16 05/15/16 18:59 06:59 18:59 Intake Total 644.15 600 480 Output Total 900 1400 950 Balance -255.85 -800 -470 Weight 129.1 kg 129.4 kg Intake: Intake, IV Titration 164.15 Amount Heparin Sodium,Porcine/ 164.15 D5w Pmx 25,000 unit In Dextrose/Water 1 500ml. bag @ 7.35 UNITS/KG/HR 20 mls/hr IV .Q24H [facility] Rx#: [id number] Oral 480 600 480 Lipid 0 Diltiazem 125 mg In 0 Sodium Chloride 0.9% 100 ml @ 5 MG/HR 5 mls/hr IV .Q24H [facility] Rx#:[id number] Output: Urine 900 1400 950 Other: Voiding Method Bedside Commode Bedside Commode Bedside Commode # Voids 3 2 - Exam GENERAL: Pt awake and alert, well-nourished, and in no acute distress. HEAD: Atraumatic, normocephalic. EYES: Pupils equal, round, and reactive to light, extraocular movements intact, sclera anicteric, conjunctiva are normal. ENT: Moist mucous membranes. NECK:Supple without lymphadenopathy or JVD. LUNGS: Breath sounds diminished to auscultation bilaterally. HEART: Heart S1, S2, no S3 or S4. Irregularly irregular. No murmurs, rubs or gallops. ABDOMEN: Soft, morbidly obese, nontender, nondistended, normoactive bowel sounds. No guarding, no rebound. Large incisional hernia present. EXTREMITIES: 1+ peripheral pulses. 1+ bilateral lower extremity edema. No calf tenderness. NEUROLOGICAL: Pt oriented x 3. Cranial nerves II through XII grossly intact. Strength and sensation grossly intact. PSYCH: Normal mood, normal affect. SKIN: Warm, dry, intact. Normal turgor. No rashes or lesions. - Labs CBC & Chem 7: 05/15/16 06:56 05/15/16 06:56 Labs: Abnormal Lab Results - Last 24 Hours (Table) 05/14/16 05/14/16 05/15/16 Range/Units 16:33 21:01 05:52 RBC (3.80-5.40) m/uL Hgb (11.4-16.0) gm/dL Hct (34.0-46.0) % MCHC (31.0-37.0) g/dL RDW (11.5-15.5) % Sodium (137-145) mmol/L Chloride (98-107) mmol/L Carbon Dioxide (22-30) mmol/L BUN (7-17) mg/dL Creatinine (0.52-1.04) mg/dL Glucose (74-99) mg/dL POC Glucose (mg/dL) 130 H 148 H 155 H (75-99) mg/dL 05/15/16 05/15/16 05/15/16 Range/Units 06:56 06:56 12:07 RBC 3.10 L (3.80-5.40) m/uL Hgb 7.9 L (11.4-16.0) gm/dL Hct 26.6 L (34.0-46.0) % MCHC 29.9 L (31.0-37.0) g/dL RDW 16.3 H (11.5-15.5) % Sodium 135 L (137-145) mmol/L Chloride 92 L (98-107) mmol/L Carbon Dioxide 35 H (22-30) mmol/L BUN 18 H (7-17) mg/dL Creatinine 1.20 H (0.52-1.04) mg/dL Glucose 130 H (74-99) mg/dL POC Glucose (mg/dL) 112 H (75-99) mg/dL Assessment and Plan Plan: Impression and plan: 1. Acute on chronic diastolic congestive heart failure. Cardiology has seen and evaluated patient. Continue current dose of IV Lasix. Patient has been started on low-dose beta fauzia. 2. Chronic bronchial asthma. Continue Singulair. 3. Chronic persistent atrial fibrillation with rapid ventricular response on admission, controlled ventricular response currently. Continue Xarelto. Continue metoprolol. 4. Obstructive sleep apnea. 5. Diabetes mellitus type 2, uncontrolled. Continue to monitor blood sugars before meals at bedtime. Continue NovoLog Mix 70/30 and Humalog sliding scale per protocol. Continue consistent carbohydrate diet. 6. Large anterior abdominal wall hernia. Continue to monitor. 7. History of chronic back pain with lumbar radiculopathy. Continue pain management as needed. 8. Adjustment disorder with mixed anxiety and depression. Psychiatry service has seen and evaluated patient. Zoloft has been increased 100 mg daily. 9. Chronic hypoxic respiratory failure on home oxygen [id number]. Continue supplemental oxygen. Continue DuoNeb updrafts. 10. Hypertension. Continue metoprolol and lisinopril. 11. Anemia, normocytic, normochromic suspect secondary to chronic disease. 12. Super morbid obesity. 14. Chronic obstructive pulmonary disease. Continue Pulmicort, continue nebulized updraft treatments. 15. Hyperlipidemia. Continue Lipitor. 16. DVT prophylaxis. Continue Xarelto and pneumatic compression sleeves to bilateral lower extremities. Consult PT/OT for possible subacute rehab placement. Consult social work for home living situation. Discharge planning in progress for ECF. The above impression and plan have been discussed and directed by Dr. Taylor. Christina RANKIN acting as scribe for Dr. Taylor.
[2016-05-15] MEDS: SODIUM CHLORIDE 0.9% 1,000 ML IV SCH (17:08)
[2016-05-15 17:10] LABS: Glucose,Whole Blood 131 mg/dL (75-99)
[2016-05-15] MEDS ORDERED: RIVAROXABAN 10 MG TAB PO SCH (17:30)
[2016-05-15 20:56] LABS: Glucose,Whole Blood 143 mg/dL (75-99)
[2016-05-15] MEDS: MONTELUKAST 10 MG TAB PO SCH (22:58)
[2016-05-16] MEDS: FUROSEMIDE 10 MG/ML 4 ML VIAL IV SCH ×2 (02:03→07:50)
[2016-05-16 05:46] LABS: Glucose,Whole Blood 90 mg/dL (75-99)
[2016-05-16 06:29] LABS: Anisocytosis Slight; Aty Lym Flag Slight; CH 25.5; CHCM 30.1; HCT 26.8 % (34.0-46.0); HDW 3.97; HGB 8.1 gm/dL (11.4-16.0); Hypochromasia Marked; MCH 25.6 pg (25.0-35.0); MCHC 30.1 g/dL (31.0-37.0); Mean Platelet Volume 7.7; Poikilocytosis Slight; RBC 3.16 m/uL (3.80-5.40); RDW 16.1 % (11.5-15.5); WBC 7.3 k/uL (3.8-10.6); WBC (Perox) 7.84
[2016-05-16 06:30] LABS: Calcium 10.3 mg/dL (8.4-10.2); Potassium 3.9 mmol/L (3.5-5.1)
[2016-05-16] MEDS: INSULIN LISPRO (humaLOG) 300 UNIT/3 ML VIAL SQ SCH ×2 (06:35→12:32)
[2016-05-16 06:59] LABS: Add Differential Manual Differential
[2016-05-16 07:05] LABS: Manual Review Performed; Myelocytes % 0.5 %; Nucleated Red Blood Cells 0 /100 WBC (0-0); Total Cells Counted 200
[2016-05-16 07:06] LABS: Polychromasia Present
[2016-05-16 07:07] LABS: Reactive Lymphocytes Present
[2016-05-16] MEDS: INSULN ASP PRT/INSULIN ASPART 100 UNIT/ML 10 ML VIAL SQ SCH (07:10)
[2016-05-16] MEDS: ATORVASTATIN 40 MG TAB PO SCH (07:50)
[2016-05-16] MEDS: FAMOTIDINE 20 MG TAB PO SCH (07:50)
[2016-05-16] MEDS: LISINOPRIL 5 MG TAB PO SCH (07:51)
[2016-05-16] MEDS: POTASSIUM CHLORIDE ER 20 MEQ TAB.ER PO SCH (07:51)
[2016-05-16] MEDS: SERTRALINE 100 MG TAB PO SCH (07:51)
[2016-05-16] MEDS: METOPROLOL TARTRATE 25 MG TAB PO SCH (07:51)
[2016-05-16 07:57] VITALS: TEMP 96.6
[2016-05-16] MEDS: IPRATROPIUM-ALBUTEROL 3 ML NEB INHALATION SCH ×2 (08:19→13:10)
[2016-05-16] MEDS: SYMBICORT 160-4.5 MCG INHALER INHALATION SCH (08:19)
--- NOTE | 2016-05-16 10:51 | P.PN ---
Subjective Principal diagnosis: CHF and atrial fibrillation This is a 65-year-old female with known history of COPD and emphysema , diabetes, hyperlipidemia, morbid obesity, chronic persistent atrial fibrillation, who presented to the hospital with symptoms of progressively worsening dyspnea. EKG on admission shows atrial fibrillation with a rapid ventricular response. Patient was initiated on IV Lasix, continues to diurese well overall. To be in atrial fibrillation with a controlled ventricular response. She was initiated today on xarelto 20 mg daily for anticoagulation. Blood pressure 140/58 with a heart rate in the 80s. Objective - Vital Signs Vital signs: Vital Signs Temp 96.6 F L 05/16/16 07:51 Pulse 92 05/16/16 08:31 Resp 18 05/16/16 07:51 BP 140/59 05/16/16 07:51 Pulse Ox 93 L 05/16/16 07:51 Intake & Output 05/15/16 05/16/16 05/16/16 18:59 06:59 18:59 Intake Total 660 Output Total 1150 2000 Balance -490 -1999 Weight 125.3 kg Intake: Oral 660 Output: Urine 1150 2000 Other: Voiding Method Bedside Commode Bedside Commode Bedside Commode # Voids 1 - Exam PHYSICAL EXAMINATION: HEENT: Head is atraumatic, normocephalic. Pupils equal, round. Neck is supple. There is no elevated jugular venous pressure. HEART EXAMINATION: Heart S1 and S2 irregularly irregular CHEST EXAMINATION: Lungs are clear with diminished air entry to the bases ABDOMEN: Soft, obese, nontender. Bowel sounds are heard. No organomegaly noted. EXTREMITIES: 1+ peripheral pulses with trace evidence of peripheral edema and no calf tenderness noted. NEUROLOGIC patient is awake, alert and oriented -3. . - Labs CBC & Chem 7: 05/16/16 05:36 05/16/16 05:36 Labs: Abnormal Lab Results - Last 24 Hours (Table) 05/15/16 05/15/16 05/15/16 Range/Units 06:56 12:07 17:02 RBC 3.10 L (3.80-5.40) m/uL Hgb 7.9 L (11.4-16.0) gm/dL Hct 26.6 L (34.0-46.0) % MCHC 29.9 L (31.0-37.0) g/dL RDW 16.3 H (11.5-15.5) % Sodium (137-145) mmol/L Chloride (98-107) mmol/L Carbon Dioxide (22-30) mmol/L BUN (7-17) mg/dL Creatinine (0.52-1.04) mg/dL POC Glucose (mg/dL) 112 H 131 H (75-99) mg/dL Calcium (8.4-10.2) mg/dL 05/15/16 05/16/16 05/16/16 Range/Units 20:55 05:36 05:36 RBC 3.16 L (3.80-5.40) m/uL Hgb 8.1 L (11.4-16.0) gm/dL Hct 26.8 L (34.0-46.0) % MCHC 30.1 L (31.0-37.0) g/dL RDW 16.1 H (11.5-15.5) % Sodium 136 L (137-145) mmol/L Chloride 90 L (98-107) mmol/L Carbon Dioxide 38 H (22-30) mmol/L BUN 20 H (7-17) mg/dL Creatinine 1.20 H (0.52-1.04) mg/dL POC Glucose (mg/dL) 143 H (75-99) mg/dL Calcium 10.3 H (8.4-10.2) mg/dL Assessment and Plan Plan: Assessment and plan #1 symptoms of progressive dyspnea, combination of diastolic congestive heart failure acute on chronic, and exacerbation of COPD. Most recent echocardiogram with Doppler study was performed in February which revealed an ejection fraction of 50-55%. #2 chronic persistent atrial fibrillation, initiated today on xarelto. #3 COPD #4 diabetes # 5 hyperlipidemia #6 accelerated hypertension #7 A. fib with RVR #8 history of noncompliance #9 anemia, hemoglobin 8.1 this morning. #10 morbid obesity Plan From cardiology's perspective, we'll discontinue the IV Lasix change patient over to oral diuretics today. May be able to be discharged home from cardiology standpoint, follow-up appointment will be made in the office post discharge. DNP note has been reviewed, I agree with a documented findings and plan of care. Patient was seen and examined.
--- NOTE | 2016-05-16 11:12 | P.DS ---
Providers Date of admission: 05/13/16 17:19 Expected date of discharge: 05/16/16 Attending physician: John Taylor Consults: Cardiology service, psychiatry service Primary care physician: John Taylor Hospital Course: Patient is a 65-year-old female with medical history significant for asthma, COPD, urinary tract infection, chronic persistent atrial fibrillation, obstructive sleep apnea, morbid obesity, diabetes mellitus type 2, large anterior abdominal wall hernia, chronic back pain with lumbar radiculopathy, generalized anxiety, chronic hypoxic respiratory failure on home O2 at 2 L [id number], hypertension, anemia, and renal insufficiency. Patient presented to the emergency department with shortness of breath that started approximately 2-3 days ago associated with increased swelling to her lower extremities. Patient was found to have evidence of acute diastolic congestive heart failure and atrial fibrillation with rapid ventricular response. Patient was admitted to the selective care unit with consult requested for cardiology service who initiated patient on IV Cardizem and IV Lasix and place patient on metoprolol and lisinopril along with Xaralto for anticoagulation. Upon arrival to the unit, patient was trying to leave the hospital AGAINST MEDICAL ADVICE and consult was requested for psychiatry service to increase patient's Zoloft 200 mg daily. Patient improved during her hospital stay and was deemed stable for discharged to [facility] for subacute rehab. Dr. Taylor will follow-up in the outpatient setting. Discharge diagnoses: 1. Acute on chronic diastolic congestive heart failure. 2. Chronic bronchial asthma. 3. Chronic persistent atrial fibrillation with rapid ventricular response on admission, controlled ventricular response currently. 4. Obstructive sleep apnea. 5. Diabetes mellitus type 2, uncontrolled. 6. Large anterior abdominal wall hernia. 7. History of chronic back pain with lumbar radiculopathy. 8. Adjustment disorder with mixed anxiety and depression. 9. Chronic hypoxic respiratory failure on home oxygen [id number]. 10. Hypertension. 11. Anemia, normocytic, normochromic suspect secondary to chronic disease. 12. Super morbid obesity. 14. Chronic obstructive pulmonary disease. 15. Hyperlipidemia. The above impression and plan have been discussed and directed by Dr. Taylor. Christina RANKIN acting as scribe for Dr. Taylor. Pertinent Studies: EKG; chest x-ray Patient Condition at Discharge: Stable Plan - Discharge Summary Discharge Medication List Montelukast Sodium [Singulair] 10 mg PO HS 10/10/15 [History] Potassium Chloride ER [K-Dur 20] 20 meq PO DAILY 03/04/16 [History] Atorvastatin [Lipitor] 40 mg PO DAILY 05/13/16 [History] Budesonide/Formoterol Fumarate [Symbicort 160-4.5 Mcg Inhaler] 2 puff INHALATION RT-BID 05/13/16 [History] Insulin Aspart Protam & Aspart [NovoLOG MIX 70-30 Flexpen] 15 unit SQ HS [History] Insulin Aspart Protam & Aspart [NovoLOG MIX 70-30 Flexpen] 25 unit SQ QAM [History] Famotidine [Pepcid] 20 mg PO DAILY tab 05/16/16 [Rx] Furosemide [Lasix] 40 mg PO BID@0900,1600 tab 05/16/16 [Rx] INSULIN LISPRO (humaLOG) [humaLOG (formulary)] 0 unit SQ ACHS vial 05/16/16 [Rx ] Ipratropium-Albuterol Nebulize [Duoneb 0.5 mg-3 mg/3 ml Soln] 3 ml INHALATION RT -Q2H PRN #0 ampul.neb 05/16/16 [Rx] Ipratropium-Albuterol Nebulize [Duoneb 0.5 mg-3 mg/3 ml Soln] 3 ml INHALATION RT -QID ampul.neb 05/16/16 [Rx] Lisinopril [Zestril] 5 mg PO DAILY tab 05/16/16 [Rx] Metoprolol Tartrate [Lopressor] 25 mg PO BID tab 05/16/16 [Rx] Rivaroxaban [Xarelto] 20 mg PO W/SUPPER tab 05/16/16 [Rx] Sertraline [Zoloft] 100 mg PO DAILY tab 05/16/16 [Rx] Follow up Appointment(s)/Referral(s): [facility], [NON-STAFF] - John Taylor MD [Primary Care Provider] - 1-2 days [facility] [Provider Group] - 1 Week Activity/Diet/Wound Care/Special Instructions: Xarelto copay is $43.50 - black pickler from [facility] at time of discharge Diet: Consistent carbohydrate diet, cardiac diet Discharge Disposition: TRANSFER TO SNF/ECF
[2016-05-16 12:15] LABS: Glucose,Whole Blood 57 mg/dL (75-99)
[2016-05-16 12:50] LABS: Glucose,Whole Blood 119 mg/dL (75-99)
[2016-05-16 14:04] VITALS: BP 129/67; PULSE 66
[2016-05-16] MEDS ORDERED: FUROSEMIDE 40 MG TAB PO SCH (16:00)
== END 2016-05-16 15:05 | DRG 292 ==
LOC: EC 15:36 → 6SEL 17:19
PROVIDERS: ADMIT Family Medicine; ATTEND Family Medicine
DX: I11.0 Hypertensive heart disease with heart failure (principal); I48.1 Persistent atrial fibrillation; J96.11 Chronic respiratory failure with hypoxia; Z99.81 Dependence on supplemental oxygen; Z68.43 Body mass index [BMI] 50.0-59.9, adult; E11.65 Type 2 diabetes mellitus with hyperglycemia; I50.33 Acute on chronic diastolic (congestive) heart failure; E66.01 Morbid (severe) obesity due to excess calories; G47.33 Obstructive sleep apnea (adult) (pediatric); J45.909 Unspecified asthma, uncomplicated; M54.16 Radiculopathy, lumbar region; E78.5 Hyperlipidemia, unspecified; K43.9 Ventral hernia without obstruction or gangrene; F43.23 Adjustment disorder with mixed anxiety and depressed mood; J44.9 Chronic obstructive pulmonary disease, unspecified; G89.29 Other chronic pain; D63.8 Anemia in other chronic diseases classified elsewhere; Z91.19 Patient's noncompliance with other medical treatment and regimen; Z71.3 Dietary counseling and surveillance; Z88.5 Allergy status to narcotic agent; Z86.11 Personal history of tuberculosis; Z98.42 Cataract extraction status, left eye; Z98.41 Cataract extraction status, right eye; Z79.02 Long term (current) use of antithrombotics/antiplatelets; Z79.82 Long term (current) use of aspirin; Z79.4 Long term (current) use of insulin; Z79.51 Long term (current) use of inhaled steroids; Z79.899 Other long term (current) drug therapy
CPT/HCPCS: 36415; 71020; 80048; 80053; 82550; 82553; 83036; 83735; 83880; 84484; 85025; 85610; 85730; 93005; 94640; 96365; 96367; 96375; 96376; 99291

== ENCOUNTER 2016-10-09 08:50 | Inpatient (IN) | payer MEDICARE ==
[2016-10-09] MEDS ORDERED: SODIUM CHLORIDE 0.9% 1,000 ML IV STA ×2 (09:17)
[2016-10-09] MEDS ORDERED: DILTIAZEM 5 MG/ML 5 ML VIAL IVP STA (09:50)
--- NOTE | 2016-10-09 09:50 | ED ---
General Adult HPI - General Chief complaint: Recheck/Abnormal Lab/Rx Stated complaint: LOW BP Time Seen by Provider: 10/09/16 09:14 Source: patient, RN notes reviewed, old records reviewed Mode of arrival: wheelchair Limitations: no limitations - History of Present Illness Initial comments: This is a 65-year-old female to the ER for evaluation today. Patient unknown why she is in the emergency room.. Patient is patient's paperwork and chart patient was transferred regarding low blood pressure elevated heart rate from [facility]. - Related Data Home Medications Medication Instructions Recorded Confirmed Montelukast Sodium [Singulair] 10 mg PO HS 10/10/15 10/09/16 Potassium Chloride ER [K-Dur 20] 20 meq PO DAILY 03/04/16 10/09/16 Budesonide/Formoterol Fumarate 2 puff INHALATION RT-BID 05/13/16 10/09/16 [Symbicort 160-4.5 Mcg Inhaler] Insulin Aspart Protam & Aspart 15 unit SQ HS 05/13/16 10/09/16 [NovoLOG MIX 70-30 Flexpen] Insulin Aspart Protam & Aspart 25 unit SQ DAILY 05/13/16 10/09/16 [NovoLOG MIX 70-30 Flexpen] Acetaminophen [Tylenol] 650 mg PO Q4H PRN 10/09/16 10/09/16 Atorvastatin [Lipitor] 10 mg PO HS 10/09/16 10/09/16 Famotidine [Pepcid] 20 mg PO HS 10/09/16 10/09/16 Ferrous Sulfate [Feosol] 325 mg PO DAILY 10/09/16 10/09/16 Folic Acid 1 mg PO DAILY 10/09/16 10/09/16 Furosemide [Lasix] 40 mg PO BID 10/09/16 10/09/16 Guaifenesin/Pseudoephedrne HCl 1 tab PO BID 10/09/16 10/09/16 [Mucinex D ER Tablet] Ipratropium-Albuterol Nebulize 3 ml INHALATION RT-Q6H 10/09/16 10/09/16 [Duoneb 0.5 mg-3 mg/3 ml Soln] Lidocaine 2% Gel [Xylocaine Jelly 1 applic TOPICAL DAILY 10/09/16 10/09/16 2%] Milk Of Magnesia 1200mg/15ml 2,400 mg PO Q72H PRN 10/09/16 10/09/16 Multivitamins, Thera [Multivitamin 1 tab PO DAILY 10/09/16 10/09/16 (formulary)] Rivaroxaban [Xarelto] 20 mg PO HS 10/09/16 10/09/16 Sulfamethoxazole/Trimethoprim 1 tab PO BID 10/09/16 10/09/16 [Bactrim SS 400-80 mg] Tiotropium 18 Mcg/Puff [Spiriva] 1 puff INHALATION RT-DAILY 10/09/16 10/09/16 clonazePAM [KlonoPIN] 0.5 mg PO DAILY PRN 10/09/16 10/09/16 clonazePAM [KlonoPIN] 0.5 mg PO HS 10/09/16 10/09/16 hydrOXYzine PAMOATE [Vistaril] 25 mg PO Q6HR PRN 10/09/16 10/09/16 traMADol HCL [Ultram] 50 mg PO Q6HR PRN 10/09/16 10/09/16 Previous Rx's Medication Instructions Recorded Lisinopril [Zestril] 5 mg PO DAILY tab 05/16/16 Metoprolol Tartrate [Lopressor] 25 mg PO BID tab 05/16/16 Sertraline [Zoloft] 100 mg PO DAILY tab 05/16/16 Allergies Allergy/AdvReac Type Severity Reaction Status Date / Time adhesive Allergy Rash/Hives Verified 10/09/16 09:10 codeine AdvReac Rash/Hives Verified 10/09/16 09:10 Review of Systems ROS Statement: Those systems with pertinent positive or pertinent negative responses have been documented in the HPI. ROS Other: All systems not noted in ROS Statement are negative. 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 Chronic atrial fibrillation, chronic restrictive and obstructive lung disease secondary to morbid obesity and underlying bronchial asthma, chronic anemia History of Any Multi-Drug Resistant Organisms: None Reported Past Surgical History: Breast Surgery, Hernia Repair Additional Past Surgical History / Comment(s): cataracts Past Anesthesia/Blood Transfusion Reactions: No Reported Reaction Past Psychological History: Anxiety Smoking Status: Never smoker Past Alcohol Use History: None Reported Past Drug Use History: None Reported - Past Family History Mother Family Medical History: CVA/TIA Father Additional Family Medical History / Comment(s): WAS INJURED IN [place], also had hx tb but from complications of his injuries Brother(s) Additional Family Medical History / Comment(s): at age 2 years 10months tb General Exam Limitations: no limitations General appearance: alert, in no apparent distress Head exam: Present: atraumatic, normocephalic, normal inspection Eye exam: Present: normal appearance, PERRL, EOMI. Absent: scleral icterus, conjunctival injection, periorbital swelling ENT exam: Present: normal exam, mucous membranes moist Neck exam: Present: normal inspection. Absent: tenderness, meningismus, lymphadenopathy Respiratory exam: Present: normal lung sounds bilaterally. Absent: respiratory distress, wheezes, rales, rhonchi, stridor Cardiovascular Exam: Present: tachycardia, irregular rhythm, normal heart sounds. Absent: systolic murmur, diastolic murmur, rubs, gallop, clicks GI/Abdominal exam: Present: soft, normal bowel sounds. Absent: distended, tenderness, guarding, rebound, rigid Extremities exam: Present: normal inspection, full ROM, normal capillary refill. Absent: tenderness, pedal edema, joint swelling, calf tenderness Back exam: Present: normal inspection Neurological exam: Present: alert, oriented X3, CN II-XII intact Psychiatric exam: Present: normal affect, normal mood Skin exam: Present: warm, dry, intact, normal color. Absent: rash Course Vital Signs 10/09/16 10/09/16 10/09/16 08:53 09:12 10:31 Temperature 97.4 F L Pulse Rate 122 H 119 H 120 H Respiratory 20 18 18 Rate Blood Pressure 84/48 103/59 98/54 O2 Sat by Pulse 100 99 99 Oximetry - Reevaluation(s) Reevaluation #1: 10/09/16 11:37 Patient found to be in A. fib with RVR, will control heart rate at this time EKG Findings - EKG Comments: EKG Findings:: AG shows a flutter rate of 121, QRS 96, QTC 494 Medical Decision Making - Medical Decision Making 65 female here for evaluation of elevated heart rate possibly low blood pressure , chronic wound infection. Patient's of care, patient will be admitted for IV hydration, acute renal failure, and H of fibrillation with RVR. - Lab Data Result diagrams: 10/09/16 09:57 10/09/16 09:57 Lab Results 10/09/16 10/09/16 10/09/16 Range/Units 09:57 09:57 09:57 WBC 7.3 (3.8-10.6) k/uL RBC 4.27 (3.80-5.40) m/uL Hgb 11.7 (11.4-16.0) gm/dL Hct 36.4 (34.0-46.0) % MCV 85.4 (80.0-100.0) fL MCH 27.4 (25.0-35.0) pg MCHC 32.0 (31.0-37.0) g/dL RDW 16.0 H (11.5-15.5) % Plt Count 351 (150-450) k/uL Neutrophils % (Manual) 66.0 % Lymphocytes % (Manual) 17.0 % Monocytes % (Manual) 10.0 % Eosinophils % (Manual) 7.0 % Neutrophils # (Manual) 4.8 (1.3-7.7) k/uL Lymphocytes # (Manual) 1.2 (1.0-4.8) k/uL Monocytes # (Manual) 0.7 (0-1.0) k/uL Eosinophils # (Manual) 0.5 (0-0.7) k/uL Nucleated RBCs 0 (0-0) /100 WBC Hypochromasia Slight Poikilocytosis (manual Present Anisocytosis Slight PT (9.0-12.0) sec INR (<1.2) APTT (22.0-30.0) sec Sodium 132 L (137-145) mmol/L Potassium 5.8 H (3.5-5.1) mmol/L Chloride 96 L (98-107) mmol/L Carbon Dioxide 26 (22-30) mmol/L Anion Gap 10 mmol/L BUN 59 H (7-17) mg/dL Creatinine 2.66 H (0.52-1.04) mg/dL Est GFR (MDRD) Af Amer 22 (>60 ml/min/1.73 sqM) Est GFR (MDRD) Non-Af 18 (>60 ml/min/1.73 sqM) Glucose 106 H (74-99) mg/dL Plasma Lactic Acid Russ (0.7-2.0) mmol/L Calcium 10.0 (8.4-10.2) mg/dL Phosphorus 4.3 (2.5-4.5) mg/dL Magnesium 2.0 (1.6-2.3) mg/dL Total Bilirubin 0.5 (0.2-1.3) mg/dL AST 29 (14-36) U/L ALT 34 (9-52) U/L Alkaline Phosphatase 139 H (38-126) U/L Total Creatine Kinase <20 L (30-135) U/L CK-MB (CK-2) <0.2 (0.0-2.4) ng/mL CK-MB (CK-2) Rel Index Troponin I <0.012 (0.000-0.034) ng/mL Total Protein 5.9 L (6.3-8.2) g/dL Albumin 3.0 L (3.5-5.0) g/dL 10/09/16 10/09/16 Range/Units 09:57 09:57 WBC (3.8-10.6) k/uL RBC (3.80-5.40) m/uL Hgb (11.4-16.0) gm/dL Hct (34.0-46.0) % MCV (80.0-100.0) fL MCH (25.0-35.0) pg MCHC (31.0-37.0) g/dL RDW (11.5-15.5) % Plt Count (150-450) k/uL Neutrophils % (Manual) % Lymphocytes % (Manual) % Monocytes % (Manual) % Eosinophils % (Manual) % Neutrophils # (Manual) (1.3-7.7) k/uL Lymphocytes # (Manual) (1.0-4.8) k/uL Monocytes # (Manual) (0-1.0) k/uL Eosinophils # (Manual) (0-0.7) k/uL Nucleated RBCs (0-0) /100 WBC Hypochromasia Poikilocytosis (manual Anisocytosis PT 12.0 (9.0-12.0) sec INR 1.2 H (<1.2) APTT 26.4 (22.0-30.0) sec Sodium (137-145) mmol/L Potassium (3.5-5.1) mmol/L Chloride (98-107) mmol/L Carbon Dioxide (22-30) mmol/L Anion Gap mmol/L BUN (7-17) mg/dL Creatinine (0.52-1.04) mg/dL Est GFR (MDRD) Af Amer (>60 ml/min/1.73 sqM) Est GFR (MDRD) Non-Af (>60 ml/min/1.73 sqM) Glucose (74-99) mg/dL Plasma Lactic Acid Russ 1.2 (0.7-2.0) mmol/L Calcium (8.4-10.2) mg/dL Phosphorus (2.5-4.5) mg/dL Magnesium (1.6-2.3) mg/dL Total Bilirubin (0.2-1.3) mg/dL AST (14-36) U/L ALT (9-52) U/L Alkaline Phosphatase (38-126) U/L Total Creatine Kinase (30-135) U/L CK-MB (CK-2) (0.0-2.4) ng/mL CK-MB (CK-2) Rel Index Troponin I (0.000-0.034) ng/mL Total Protein (6.3-8.2) g/dL Albumin (3.5-5.0) g/dL - Radiology Data Radiology results: report reviewed (X-rays negative for acute disease), image reviewed Disposition Clinical Impression: Acute exacerbation of chronic obstructive airways disease, Atrial fibrillation with RVR, ARF (acute renal failure), Hyperkalemia Disposition: ADMITTED IP TO THIS HOSP Condition: Fair Referrals: John Taylor MD [Primary Care Provider] - 1-2 days
[2016-10-09 10:22] LABS: INR 1.2 (<1.2); Partial Thromboplastin Time 26.4 sec (22.0-30.0); Phosphorous 4.3 mg/dL (2.5-4.5); Potassium 5.8 mmol/L (3.5-5.1); Total Bilirubin 0.5 mg/dL (0.2-1.3); Total Protein 5.9 g/dL (6.3-8.2)
--- NOTE | 2016-10-09 10:25 | XR ---
EXAMINATION TYPE: XR chest 2V DATE OF EXAM: 10/09/2016 COMPARISON: May 13, 2016 HISTORY: Shortness of breath TECHNIQUE: Frontal and lateral views of the chest are obtained. FINDINGS: Scattered senescent parenchymal changes noted. Hyperinflation compatible with COPD. Patchy density right medial lung base may reflect chronic inflammatory change. Underlying infiltrate is difficult to exclude however. Correlate clinically. Heart size is stable. Mediastinal structures are stable and grossly unremarkable. No evidence for hilar prominence. Degenerative changes dorsal spine. IMPRESSION: 1. Patchy density right medial lung base may reflect chronic inflammatory change. Underlying infiltra te is difficult to exclude however. Correlate clinically.
[2016-10-09 10:27] LABS: Anisocytosis Slight; Aty Lym Flag Slight; CH 27.1; CHCM 31.8; HCT 36.4 % (34.0-46.0); HGB 11.7 gm/dL (11.4-16.0); Hypochromasia Slight; MCH 27.4 pg (25.0-35.0); MCV 85.4 fL (80.0-100.0); Mean Platelet Volume 7.8; RBC 4.27 m/uL (3.80-5.40); WBC 7.3 k/uL (3.8-10.6); WBC (Perox) 7.48
[2016-10-09 10:32] LABS: Creatine Kinase <20 U/L (30-135)
[2016-10-09 10:45] LABS: Creatine Kinase MB <0.2 ng/mL (0.0-2.4); Troponin I <0.012 ng/mL (0.000-0.034)
[2016-10-09 11:04] LABS: Add Differential Manual Differential
[2016-10-09 11:06] LABS: Nucleated Red Blood Cells 0 /100 WBC (0-0); Total Cells Counted 100
[2016-10-09] MEDS ORDERED: NITROGLYCERIN SL TABS 0.4 MG TAB SUBLINGUAL PRN (11:35)
[2016-10-09] MEDS: SODIUM CHLORIDE 0.9% 1,000 ML IV SCH ×2 (12:18→21:42)
[2016-10-09] MEDS ORDERED: MORPHINE SULFATE 4 MG/ML SYRINGE IVP STA (12:19)
[2016-10-09 12:50] LABS: Appearance,Urine Cloudy (Clear); Bilirubin,Urine Negative (Negative); Glucose,Urine (UA) Negative (Negative); Ketones,Urine Negative (Negative); Leukocyte Esterase,Urine Large (Negative); Mucus,Urine Rare /hpf; Nitrite,Urine Negative (Negative); PH, Urine 5.5 (5.0-8.0); Particle Count 6057; Protein,Urine Negative (Negative); RBC,Urine 3 /hpf (0-5); Specific Gravity,Urine 1.012 (1.001-1.035); Squamous Epithelial Cell,Urine 4 /hpf (0-4); UA Billing (MACRO vs. MICRO) MICRO; Urobilinogen,Urine <2.0 mg/dL (<2.0); WBC,Urine 77 /hpf (0-5)
[2016-10-09 16:43] LABS: Creatine Kinase <20 U/L (30-135)
[2016-10-09 16:54] LABS: Creatine Kinase MB <0.2 ng/mL (0.0-2.4); Troponin I <0.012 ng/mL (0.000-0.034)
[2016-10-09] MEDS: MORPHINE SULFATE 4 MG/ML SYRINGE IVP PRN ×2 (17:32→21:39)
[2016-10-09] MEDS ORDERED: MAGNESIUM HYDROXIDE PO PRN (18:34)
[2016-10-09] MEDS ORDERED: ACETAMINOPHEN TAB 325 MG TAB PO PRN (18:34)
[2016-10-09] MEDS ORDERED: clonazePAM 0.5 MG TAB PO PRN (18:34)
[2016-10-09] MEDS ORDERED: hydrOXYzine PAMOATE 25 MG CAP PO PRN (18:34)
[2016-10-09] MEDS ORDERED: FUROSEMIDE 40 MG TAB PO SCH (19:00)
[2016-10-09] MEDS ORDERED: MAGNESIUM HYDROXIDE 2,400 MG/10 ML CUP PO PRN (19:05)
--- NOTE | 2016-10-09 19:13 | P.HPIM ---
History of Present Illness H&P Date: 10/09/16 Chief Complaint: afib with rvr This 65-year-old female who presented to the emergency room for evaluation from the wound center. Patient unknown why she was in the emergency room and the paperwork this patient was sent from the wound center with a history of low blood pressure and elevated heart rate. Patient has known A. fib with intermittent RVR is currently on xarelto and aspirin. Will start patient on Cardizem CD 120 mg a cardiology evaluation and anticipate transferring the patient back to the nursing care facility where she is currently residing Review of Systems Constitutional: Reports as per HPI Cardiovascular: Reports irregular heart beat, Reports rapid heart beat Respiratory: Reports as per HPI Gastrointestinal: Reports as per HPI Genitourinary: Reports as per HPI Menstruation: Reports as per HPI Musculoskeletal: Reports as per HPI Integumentary: Reports as per HPI Neurological: Reports as per HPI Psychiatric: Reports as per HPI Endocrine: Reports as per HPI Hematologic/Lymphatic: Reports as per HPI Allergic/Immunologic: Reports as per HPI Past Medical History Past Medical History: No Reported History (I's more was probably require delay with work in the [facility] [employer] and has learned that mother was determined and is more wedge closure waving girlfriend now is working as I remember her department white was transferred and usually he is), Atrial Fibrillation, Asthma , Heart Failure, COPD, Diabetes Mellitus, Hyperlipidemia Additional Past Medical History / Comment(s): Morbid obesity, COPD, bronchial asthma, diabetes mellitus, hyperlipidemia, large anterior abdominal wall hernia , obstructive sleep apnea maintained on CPAP on outpatient basis, back pain, generalized anxiety disorder, lumbar radiculopathy, kidney cysts, 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 Chronic atrial fibrillation, chronic restrictive and obstructive lung disease secondary to morbid obesity and underlying bronchial asthma, chronic anemia History of Any Multi-Drug Resistant Organisms: None Reported Past Surgical History: Breast Surgery, Hernia Repair Additional Past Surgical History / Comment(s): cataracts Past Anesthesia/Blood Transfusion Reactions: No Reported Reaction Past Psychological History: Anxiety Additional Psychological History / Comment(s): pt lives in own home, neice/ nephew live with her and drive pt to her appts. no home care services. pt uses a walker when up. has home o2, bsc, lift bed, walker. Smoking Status: Never smoker Past Alcohol Use History: None Reported Past Drug Use History: None Reported - Past Family History Mother Family Medical History: CVA/TIA Father Additional Family Medical History / Comment(s): WAS INJURED IN [place], also had hx tb but from complications of his injuries Brother(s) Additional Family Medical History / Comment(s): at age 2 years 10months tb Medications and Allergies Home Medications Medication Instructions Recorded Confirmed Type Montelukast Sodium [Singulair] 10 mg PO HS 10/10/15 10/09/16 History Potassium Chloride ER [K-Dur 20] 20 meq PO DAILY 03/04/16 10/09/16 History Budesonide/Formoterol Fumarate 2 puff INHALATION RT-BID 05/13/16 10/09/16 History [Symbicort 160-4.5 Mcg Inhaler] Insulin Aspart Protam & Aspart 15 unit SQ HS 05/13/16 10/09/16 History [NovoLOG MIX 70-30 Flexpen] Insulin Aspart Protam & Aspart 25 unit SQ DAILY 05/13/16 10/09/16 History [NovoLOG MIX 70-30 Flexpen] Acetaminophen [Tylenol] 650 mg PO Q4H PRN 10/09/16 10/09/16 History Atorvastatin [Lipitor] 10 mg PO HS 10/09/16 10/09/16 History Famotidine [Pepcid] 20 mg PO HS 10/09/16 10/09/16 History Ferrous Sulfate [Feosol] 325 mg PO DAILY 10/09/16 10/09/16 History Folic Acid 1 mg PO DAILY 10/09/16 10/09/16 History Furosemide [Lasix] 40 mg PO BID 10/09/16 10/09/16 History Guaifenesin/Pseudoephedrne HCl 1 tab PO BID 10/09/16 10/09/16 History [Mucinex D ER Tablet] Ipratropium-Albuterol Nebulize 3 ml INHALATION RT-Q6H 10/09/16 10/09/16 History [Duoneb 0.5 mg-3 mg/3 ml Soln] Lidocaine 2% Gel [Xylocaine Jelly 1 applic TOPICAL DAILY 10/09/16 10/09/16 History 2%] Milk Of Magnesia 1200mg/15ml 2,400 mg PO Q72H PRN 10/09/16 10/09/16 History Multivitamins, Thera [Multivitamin 1 tab PO DAILY 10/09/16 10/09/16 History (formulary)] Rivaroxaban [Xarelto] 20 mg PO HS 10/09/16 10/09/16 History Sulfamethoxazole/Trimethoprim 1 tab PO BID 10/09/16 10/09/16 History [Bactrim SS 400-80 mg] Tiotropium 18 Mcg/Puff [Spiriva] 1 puff INHALATION RT-DAILY 10/09/16 10/09/16 History clonazePAM [KlonoPIN] 0.5 mg PO DAILY PRN 10/09/16 10/09/16 History clonazePAM [KlonoPIN] 0.5 mg PO HS 10/09/16 10/09/16 History hydrOXYzine PAMOATE [Vistaril] 25 mg PO Q6HR PRN 10/09/16 10/09/16 History traMADol HCL [Ultram] 50 mg PO Q6HR PRN 10/09/16 10/09/16 History Allergies Allergy/AdvReac Type Severity Reaction Status Date / Time adhesive Allergy Rash/Hives Verified 10/09/16 09:10 codeine AdvReac Rash/Hives Verified 10/09/16 09:10 Physical Exam Osteopathic Statement: *. No significant issues noted on an osteopathic structural exam other than those noted in the History and Physical/Consult. Vitals: Vital Signs Temp Pulse Pulse Resp BP BP Pulse Ox 10/09/16 16:33 98.8 F 118 H 16 103/50 100 10/09/16 15:00 117 H 18 99/57 98 10/09/16 14:03 98.4 F 119 H 16 108/62 99 10/09/16 12:10 97 F L 113 H 16 124/54 97 10/09/16 12:00 117 H 18 97/49 100 10/09/16 10:31 120 H 18 98/54 99 10/09/16 09:12 119 H 18 103/59 99 10/09/16 08:53 97.4 F L 122 H 20 84/48 100 Intake and Output 10/09/16 10/09/16 10/09/16 06:59 14:59 22:59 Output Total 0 Balance 0 Output: Urine 0 Other: Weight 140.6 kg Patient Weight 10/10/16 06:59 Weight 140.6 kg General: [Patient awake, alert and oriented times 3. Patient in no acute distress.] HEENT: [PERRL. EOMI. No pharyngeal erythema or exudate.] Neck: [No adenopathy.] Cardiac: [Heart regular in rate and rhythm. No S3. No S4. No clicks, rubs. No murmur.] Lungs: [Clear to auscultation bilaterally.] Abdomen: [No mass. No organomegaly. Bowel sounds presnt and normoactive in all 4 quadrants.] Large pannus Extremes: [No edema no cyanosis no claudication normal pulses] : [] Musculoskeletal: [No joint erythema, edema or tenderness.] Skin: [No rash.] Neurologic: [No lateralizing deficits. CN II - XII grossly intact.] Lymphatic: [No adenopathy.] Results CBC & Chem 7: 10/09/16 09:57 10/09/16 09:57 Labs: Abnormal Lab Results - Last 24 Hours (Table) 10/09/16 10/09/16 10/09/16 Range/Units 09:57 09:57 09:57 RDW 16.0 H (11.5-15.5) % INR (<1.2) Sodium 132 L (137-145) mmol/L Potassium 5.8 H (3.5-5.1) mmol/L Chloride 96 L (98-107) mmol/L BUN 59 H (7-17) mg/dL Creatinine 2.66 H (0.52-1.04) mg/dL Glucose 106 H (74-99) mg/dL Alkaline Phosphatase 139 H (38-126) U/L Total Creatine Kinase <20 L (30-135) U/L Total Protein 5.9 L (6.3-8.2) g/dL Albumin 3.0 L (3.5-5.0) g/dL Urine Appearance (Clear) Ur Leukocyte Esterase (Negative) Urine WBC (0-5) /hpf Urine WBC Clumps (None) /hpf Hyaline Casts (0-2) /lpf Urine Mucus (None) /hpf 10/09/16 10/09/16 10/09/16 Range/Units 09:57 12:29 15:56 RDW (11.5-15.5) % INR 1.2 H (<1.2) Sodium (137-145) mmol/L Potassium (3.5-5.1) mmol/L Chloride (98-107) mmol/L BUN (7-17) mg/dL Creatinine (0.52-1.04) mg/dL Glucose (74-99) mg/dL Alkaline Phosphatase (38-126) U/L Total Creatine Kinase <20 L (30-135) U/L Total Protein (6.3-8.2) g/dL Albumin (3.5-5.0) g/dL Urine Appearance Cloudy H (Clear) Ur Leukocyte Esterase Large H (Negative) Urine WBC 77 H (0-5) /hpf Urine WBC Clumps Rare H (None) /hpf Hyaline Casts 10 H (0-2) /lpf Urine Mucus Rare H (None) /hpf Thrombosis Risk Factor Assmnt - DVT/VTE Prophylaxis DVT/VTE Prophylaxis: Pharmacologic Prophylaxis ordered (Patient already on this xarelto and aspirin) Assessment and Plan (1) ARF (acute renal failure) Narrative/Plan: Acute on chronic renal failure consult nephrology patient currently making urine Status: Acute (2) Atrial fibrillation with RVR Narrative/Plan: A. fib with RPR started Cardizem 120 mg CD consult cardiology Status: Acute
[2016-10-09] MEDS: IPRATROPIUM-ALBUTEROL 3 ML NEB INHALATION SCH (19:18)
[2016-10-09] MEDS: SYMBICORT 160-4.5 MCG INHALER INHALATION SCH (19:18)
[2016-10-09] MEDS ORDERED: ceFAZolin 2 GM in SODIUM CHLORIDE 0.9% 100 ML IVPB STA (20:00)
[2016-10-09 20:39] LABS: Appearance,Urine Cloudy (Clear); Bilirubin,Urine Negative (Negative); Glucose,Urine (UA) Negative (Negative); Ketones,Urine Negative (Negative); Leukocyte Esterase,Urine Large (Negative); Nitrite,Urine Negative (Negative); PH, Urine 5.5 (5.0-8.0); Particle Count 3013; Protein,Urine Negative (Negative); RBC,Urine 1 /hpf (0-5); Squamous Epithelial Cell,Urine 2 /hpf (0-4); UA Billing (MACRO vs. MICRO) MICRO; Urobilinogen,Urine <2.0 mg/dL (<2.0); WBC,Urine 20 /hpf (0-5)
[2016-10-09] MEDS ORDERED: RIVAROXABAN 10 MG TAB PO SCH (21:00)
[2016-10-09] MEDS ORDERED: SULFAMETHOX-TMP 400-80MG 1 EACH TAB PO SCH (21:00)
--- NOTE | 2016-10-09 21:15 | P.CONS ---
History of Present Illness - Reason for Consult Consult date: 10/09/16 - Chief Complaint Abdominal ulcer - History of Present Illness 65-year-old female with a long-standing history of obesity, asthma COPD and coronary artery disease with persistent atrial fibrillation presented to the [facility] wound healing center today. At that time she was on evidence of hypotension and tachycardia. She was sent to the emergency center and has cut subsequently been admitted for further evaluation of her atrial fibrillation and hypotension. The patient relates she's been having difficulty with abdominal wound for several weeks. Despite some local care the ulcer was not healing and consequently was referred to the wound center for further intervention. She relates a site is uncomfortable. She is denying a large amount of pain. Denies fevers chills or rigors. She has significant weakness. It is noted that recently she was admitted. She had been an extended care and signed out AMA and was walking around her neighborhood without shoes. I believe it was winter time. She's now been an extended care for ongoing interventions. Review of Systems HEENT:Denies headache or acute visual change. Denies sinus or mouth discomforts. Denies neck stiffness or pain. Denies significant oral cavity pain. Denies difficulty on swallowing. Lungs: Patient complains of chronic shortness of breath she has cough without significant sputum production or hemoptysis Cardiovascular: Chronic shortness of breath denies chest pain has palpitations denies syncope. She does not have orthopnea but does have dyspnea with effort Gastrointestinal:Denies nausea, vomiting, diarrhea, constipation, hematemesis, melena, hematochezia. No no significant change of bowel habit noticed. Chronic large abdominal hernia not a surgical candidate Musculoskeletal: denies significant myalgias or arthralgias. No new joint swelling. Denies new back pain. Skin: Chronic ulcer as per the HPI Neuro: Denies headache or visual change. Denies any new onset weakness or difficulty with ambulation. Denies falls or seizures. Psychiatric: Chronic anxiety and has a history of bizarre behavior Endocrine: Denies significant fatigue, denies significant weight loss or weight gain. 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 Chronic atrial fibrillation, chronic restrictive and obstructive lung disease secondary to morbid obesity and underlying bronchial asthma, chronic anemia History of Any Multi-Drug Resistant Organisms: None Reported Past Surgical History: Breast Surgery, Hernia Repair Additional Past Surgical History / Comment(s): cataracts Past Anesthesia/Blood Transfusion Reactions: No Reported Reaction Past Psychological History: Anxiety Additional Psychological History / Comment(s): Patient is now in extended care. Lifelong nonsmoker. His niece and nephews does not relate to children. No experience. No travel. No animal exposures. Smoking Status: Never smoker Past Alcohol Use History: None Reported Past Drug Use History: None Reported - Past Family History Mother Family Medical History: CVA/TIA Father Additional Family Medical History / Comment(s): WAS INJURED IN [place], also had hx tb but from complications of his injuries Brother(s) Additional Family Medical History / Comment(s): at age 2 years 10months tb Medications and Allergies Home Medications and Allergies Comment(s): Current Medications Acetaminophen (Tylenol Tab) 650 mg PO Q4H PRN PRN Reason: Pain Albuterol/Ipratropium (Duoneb 0.5 Mg-3 Mg/3 Ml Soln) 3 ml INHALATION RT-Q6H [facility] Last Admin: 10/09/16 19:18 Dose: 3 ml Aspirin (Aspirin) 325 mg PO DAILY [facility] Atorvastatin Calcium (Lipitor) 10 mg PO HS [facility] Budesonide/Formoterol Fumarate (Symbicort 160-4.5 Mcg Inhaler) 2 puff INHALATION RT-BID [facility] Last Admin: 10/09/16 19:18 Dose: 2 puff Clonazepam (Klonopin) 0.5 mg PO DAILY PRN PRN Reason: Anxiety Clonazepam (Klonopin) 0.5 mg PO HS [facility] Diltiazem HCl (Cardizem Cd) 120 mg PO DAILY [facility] Famotidine (Pepcid) 20 mg PO HS [facility] Ferrous Sulfate (Feosol) 325 mg PO DAILY [facility] Folic Acid (Folic Acid) 1 mg PO DAILY [facility] Furosemide (Lasix) 40 mg PO BID@0900,1600 [facility] Guaifenesin (Mucinex) 600 mg PO BID [facility] Hydroxyzine Pamoate (Vistaril) 25 mg PO Q6HR PRN PRN Reason: Pain Sodium Chloride (Saline 0.9%) 1,000 mls @ 100 mls/hr IV .Q10H [facility] Last Admin: 10/09/16 12:18 Dose: 100 mls/hr Cefazolin Sodium/Dextrose 1, (000 mg/ IV Solution) 50 mls @ 100 mls/hr IVPB Q12H [facility] Insulin Aspart (Novolog Mix 70-30 Vial) 15 unit SQ HS [facility] Insulin Aspart (Novolog Mix 70-30 Vial) 25 unit SQ [id number] [facility] Lidocaine HCl (Xylocaine Jelly 2%) 1 applic TOPICAL DAILY [facility] Lisinopril (Zestril) 5 mg PO DAILY [facility] Magnesium Hydroxide (Milk Of Magnesia) 2,400 mg PO Q72H PRN PRN Reason: Constipation Metoprolol Tartrate (Lopressor) 25 mg PO BID [facility] Montelukast Sodium (Singulair) 10 mg PO HS [facility] Morphine Sulfate (Morphine Sulfate (Inj)) 4 mg IVP Q4HR PRN PRN Reason: Pain Last Admin: 10/09/16 17:32 Dose: 4 mg Multivitamins (Theragran) 1 each PO DAILY [facility] Nitroglycerin (Nitrostat) 0.4 mg SUBLINGUAL Q5M PRN PRN Reason: Chest Pain Potassium Chloride (K-Dur 20) 20 meq PO DAILY [facility] Pseudoephedrine HCl (Sudafed) 60 mg PO BID [facility] Rivaroxaban (Xarelto) 20 mg PO HS [facility] Sertraline HCl (Zoloft) 100 mg PO DAILY [facility] Tramadol HCl (Ultram) 50 mg PO Q6HR PRN PRN Reason: Pain Home Medications Medication Instructions Recorded Confirmed Type Montelukast Sodium [Singulair] 10 mg PO HS 10/10/15 10/09/16 History Potassium Chloride ER [K-Dur 20] 20 meq PO DAILY 03/04/16 10/09/16 History Budesonide/Formoterol Fumarate 2 puff INHALATION RT-BID 05/13/16 10/09/16 History [Symbicort 160-4.5 Mcg Inhaler] Insulin Aspart Protam & Aspart 15 unit SQ HS 05/13/16 10/09/16 History [NovoLOG MIX 70-30 Flexpen] Insulin Aspart Protam & Aspart 25 unit SQ DAILY 05/13/16 10/09/16 History [NovoLOG MIX 70-30 Flexpen] Acetaminophen [Tylenol] 650 mg PO Q4H PRN 10/09/16 10/09/16 History Atorvastatin [Lipitor] 10 mg PO HS 10/09/16 10/09/16 History Famotidine [Pepcid] 20 mg PO HS 10/09/16 10/09/16 History Ferrous Sulfate [Feosol] 325 mg PO DAILY 10/09/16 10/09/16 History Folic Acid 1 mg PO DAILY 10/09/16 10/09/16 History Furosemide [Lasix] 40 mg PO BID 10/09/16 10/09/16 History Guaifenesin/Pseudoephedrne HCl 1 tab PO BID 10/09/16 10/09/16 History [Mucinex D ER Tablet] Ipratropium-Albuterol Nebulize 3 ml INHALATION RT-Q6H 10/09/16 10/09/16 History [Duoneb 0.5 mg-3 mg/3 ml Soln] Lidocaine 2% Gel [Xylocaine Jelly 1 applic TOPICAL DAILY 10/09/16 10/09/16 History 2%] Milk Of Magnesia 1200mg/15ml 2,400 mg PO Q72H PRN 10/09/16 10/09/16 History Multivitamins, Thera [Multivitamin 1 tab PO DAILY 10/09/16 10/09/16 History (formulary)] Rivaroxaban [Xarelto] 20 mg PO HS 10/09/16 10/09/16 History Sulfamethoxazole/Trimethoprim 1 tab PO BID 10/09/16 10/09/16 History [Bactrim SS 400-80 mg] Tiotropium 18 Mcg/Puff [Spiriva] 1 puff INHALATION RT-DAILY 10/09/16 10/09/16 History clonazePAM [KlonoPIN] 0.5 mg PO DAILY PRN 10/09/16 10/09/16 History clonazePAM [KlonoPIN] 0.5 mg PO HS 10/09/16 10/09/16 History hydrOXYzine PAMOATE [Vistaril] 25 mg PO Q6HR PRN 10/09/16 10/09/16 History traMADol HCL [Ultram] 50 mg PO Q6HR PRN 07/27/17 07/27/17 History Allergies Allergy/AdvReac Type Severity Reaction Status Date / Time adhesive Allergy Rash/Hives Verified 10/09/16 09:10 codeine AdvReac Rash/Hives Verified 10/09/16 09:10 Physical Exam Vitals: Vital Signs Temp Pulse Pulse Resp BP BP Pulse Ox 10/09/16 19:31 118 H 10/09/16 19:20 121 H 10/09/16 16:33 98.8 F 118 H 16 103/50 100 10/09/16 15:00 117 H 18 99/57 98 10/09/16 14:03 98.4 F 119 H 16 108/62 99 10/09/16 12:10 97 F L 113 H 16 124/54 97 10/09/16 12:00 117 H 18 97/49 100 10/09/16 10:31 120 H 18 98/54 99 10/09/16 09:12 119 H 18 103/59 99 10/09/16 08:53 97.4 F L 122 H 20 84/48 100 Intake and Output 10/09/16 10/09/16 10/09/16 06:59 14:59 22:59 Output Total 200 Balance -200 Output: Urine 200 Other: # Bowel Movements 0 Weight 140.6 kg Patient Weight 10/10/16 06:59 Weight 140.6 kg Obese 65-year-old woman who is comfortable at this time HEENT: Anicteric conjunctiva are pink and moist nasal mucosa grossly intact without significant lesions, there is no thrush. Neck: The neck is supple without significant lymphadenopathy or thyromegaly. Lungs: Good bilateral air entry without significant crackles or wheezing. There is no significant bronchial sounds. There is no egophony or dullness. Heart: Regular rate and rhythm with an audible S1-S2, no S3 no S4. There is no significant murmur click or rub, PMI was nondisplaced. Abdomen: Positive bowel sounds soft has an extensive herniation with large pannus. There is evidence of ulceration abdominal wall measuring at 2 x 2 x 0.2 with underlying erythema and some drainage Extremities: The upper extremities have excellent pulses they are symmetric, no significant petechiae or telangiectasia. No splinter hemorrhages were noted. Lower extremities have bilateral edema no open ulcerations are seen Neuro: Awake alert oriented to person place and time. There are no acute new gross focal sensory motor deficits. Results CBC & Chem 7: 10/09/16 09:57 10/09/16 09:57 Labs: Abnormal Lab Results - Last 24 Hours (Table) 10/09/16 10/09/16 10/09/16 Range/Units 09:57 09:57 09:57 RDW 16.0 H (11.5-15.5) % INR (<1.2) Sodium 132 L (137-145) mmol/L Potassium 5.8 H (3.5-5.1) mmol/L Chloride 96 L (98-107) mmol/L BUN 59 H (7-17) mg/dL Creatinine 2.66 H (0.52-1.04) mg/dL Glucose 106 H (74-99) mg/dL Alkaline Phosphatase 139 H (38-126) U/L Total Creatine Kinase <20 L (30-135) U/L Total Protein 5.9 L (6.3-8.2) g/dL Albumin 3.0 L (3.5-5.0) g/dL Urine Appearance (Clear) Ur Leukocyte Esterase (Negative) Urine WBC (0-5) /hpf Urine WBC Clumps (None) /hpf Hyaline Casts (0-2) /lpf Urine Mucus (None) /hpf 10/09/16 10/09/16 10/09/16 Range/Units 09:57 12:29 15:56 RDW (11.5-15.5) % INR 1.2 H (<1.2) Sodium (137-145) mmol/L Potassium (3.5-5.1) mmol/L Chloride (98-107) mmol/L BUN (7-17) mg/dL Creatinine (0.52-1.04) mg/dL Glucose (74-99) mg/dL Alkaline Phosphatase (38-126) U/L Total Creatine Kinase <20 L (30-135) U/L Total Protein (6.3-8.2) g/dL Albumin (3.5-5.0) g/dL Urine Appearance Cloudy H (Clear) Ur Leukocyte Esterase Large H (Negative) Urine WBC 77 H (0-5) /hpf Urine WBC Clumps Rare H (None) /hpf Hyaline Casts 10 H (0-2) /lpf Urine Mucus Rare H (None) /hpf 10/09/16 Range/Units Unknown RDW (11.5-15.5) % INR (<1.2) Sodium (137-145) mmol/L Potassium (3.5-5.1) mmol/L Chloride (98-107) mmol/L BUN (7-17) mg/dL Creatinine (0.52-1.04) mg/dL Glucose (74-99) mg/dL Alkaline Phosphatase (38-126) U/L Total Creatine Kinase (30-135) U/L Total Protein (6.3-8.2) g/dL Albumin (3.5-5.0) g/dL Urine Appearance Cloudy H (Clear) Ur Leukocyte Esterase Large H (Negative) Urine WBC 20 H (0-5) /hpf Urine WBC Clumps (None) /hpf Hyaline Casts 3 H (0-2) /lpf Urine Mucus (None) /hpf Laboratory Results WBC 7.3 k/uL (3.8-10.6) 10/09/16 09:57 RBC 4.27 m/uL (3.80-5.40) 10/09/16 09:57 Hgb 11.7 gm/dL (11.4-16.0) 10/09/16 09:57 Hct 36.4 % (34.0-46.0) 10/09/16 09:57 MCV 85.4 fL (80.0-100.0) 10/09/16 09:57 MCH 27.4 pg (25.0-35.0) 10/09/16 09:57 MCHC 32.0 g/dL (31.0-37.0) 10/09/16 09:57 RDW 16.0 % (11.5-15.5) H 10/09/16 09:57 Plt Count 351 k/uL (150-450) 10/09/16 09:57 Neutrophils % (Manual) 66.0 % 10/09/16 09:57 Lymphocytes % (Manual) 17.0 % 10/09/16 09:57 Monocytes % (Manual) 10.0 % 10/09/16 09:57 Eosinophils % (Manual) 7.0 % 10/09/16 09:57 Neutrophils # (Manual) 4.8 k/uL (1.3-7.7) 10/09/16 09:57 Lymphocytes # (Manual) 1.2 k/uL (1.0-4.8) 10/09/16 09:57 Monocytes # (Manual) 0.7 k/uL (0-1.0) 10/09/16 09:57 Eosinophils # (Manual) 0.5 k/uL (0-0.7) 10/09/16 09:57 Nucleated RBCs 0 /100 WBC (0-0) 10/09/16 09:57 Hypochromasia Slight 10/09/16 09:57 Poikilocytosis (manual Present 10/09/16 09:57 Anisocytosis Slight 10/09/16 09:57 PT 12.0 sec (9.0-12.0) 10/09/16 09:57 INR 1.2 (<1.2) H 10/09/16 09:57 APTT 26.4 sec (22.0-30.0) 10/09/16 09:57 Sodium 132 mmol/L (137-145) L 10/09/16 09:57 Potassium 5.8 mmol/L (3.5-5.1) H 10/09/16 09:57 Chloride 96 mmol/L (98-107) L 10/09/16 09:57 Carbon Dioxide 26 mmol/L (22-30) 10/09/16 09:57 Anion Gap 10 mmol/L 10/09/16 09:57 BUN 59 mg/dL (7-17) H 10/09/16 09:57 Creatinine 2.66 mg/dL (0.52-1.04) H 10/09/16 09:57 Est GFR (MDRD) Af Amer 22 (>60 ml/min/1.73 sqM) 10/09/16 09:57 Est GFR (MDRD) Non-Af 18 (>60 ml/min/1.73 sqM) 10/09/16 09:57 Glucose 106 mg/dL (74-99) H 10/09/16 09:57 Plasma Lactic Acid Russ 1.2 mmol/L (0.7-2.0) 10/09/16 09:57 Calcium 10.0 mg/dL (8.4-10.2) 10/09/16 09:57 Phosphorus 4.3 mg/dL (2.5-4.5) 10/09/16 09:57 Magnesium 2.0 mg/dL (1.6-2.3) 10/09/16 09:57 Total Bilirubin 0.5 mg/dL (0.2-1.3) 10/09/16 09:57 AST 29 U/L (14-36) 10/09/16 09:57 ALT 34 U/L (9-52) 10/09/16 09:57 Alkaline Phosphatase 139 U/L (38-126) H 10/09/16 09:57 Total Creatine Kinase <20 U/L (30-135) L 10/09/16 15:56 CK-MB (CK-2) <0.2 ng/mL (0.0-2.4) 10/09/16 15:56 CK-MB (CK-2) Rel Index 10/09/16 15:56 Troponin I <0.012 ng/mL (0.000-0.034) 10/09/16 15:56 Total Protein 5.9 g/dL (6.3-8.2) L 10/09/16 09:57 Albumin 3.0 g/dL (3.5-5.0) L 10/09/16 09:57 Urine Color Yellow 10/09/16 Unknown Urine Appearance Cloudy (Clear) H 10/09/16 Unknown Urine pH 5.5 (5.0-8.0) 10/09/16 Unknown Ur Specific [place] 1.010 (1.001-1.035) 10/09/16 Unknown Urine Protein Negative (Negative) 10/09/16 Unknown Urine Glucose (UA) Negative (Negative) 10/09/16 Unknown Urine Ketones Negative (Negative) 10/09/16 Unknown Urine Blood Negative (Negative) 10/09/16 Unknown Urine Nitrite Negative (Negative) 10/09/16 Unknown Urine Bilirubin Negative (Negative) 10/09/16 Unknown Urine Urobilinogen <2.0 mg/dL (<2.0) 10/09/16 Unknown Ur Leukocyte Esterase Large (Negative) H 10/09/16 Unknown Urine RBC 1 /hpf (0-5) 10/09/16 Unknown Urine WBC 20 /hpf (0-5) H 10/09/16 Unknown Urine WBC Clumps Rare /hpf (None) H 10/09/16 12:29 Ur Squamous Epith Cells 2 /hpf (0-4) 10/09/16 Unknown Hyaline Casts 3 /lpf (0-2) H 10/09/16 Unknown Urine Mucus Rare /hpf (None) H 10/09/16 12:29 Assessment and Plan (1) Skin ulcer of abdominal wall with fat layer exposed Narrative/Plan: 65-year-old female who presents to Hospital for evaluation the wound center. However presentation she was found evidence of hypotension and tachycardia and was referred to the emergency center. She subsequently has been admitted for evaluation of her atrial fibrillation and hypotension. She has evidence of the abdominal wall ulceration with the fat layer exposed. She does have a recent culture that shows evidence of Proteus mirabilis and MSSA. Consequently cephazolin dosed for her acute renal failure is given. The hyperkalemia is also being treated. There is blood cultures in progress. Urinalysis is quite benign urine culture is in progress. Local wound care with [facility] will be utilized. Abdominal wall ulceration. When stable following the wound healing Center Status: Acute
[2016-10-09] MEDS: clonazePAM 0.5 MG TAB PO SCH (21:22)
[2016-10-09] MEDS: ATORVASTATIN 10 MG TAB PO SCH (21:22)
[2016-10-09] MEDS: guaiFENesin 600 MG TABLET.ER PO SCH (21:23)
[2016-10-09] MEDS: FAMOTIDINE 20 MG TAB PO SCH (21:23)
[2016-10-09] MEDS: METOPROLOL TARTRATE 25 MG TAB PO SCH (21:23)
[2016-10-09] MEDS: PSEUDOEPHEDRINE 30 MG TAB PO SCH (21:24)
[2016-10-09] MEDS: MONTELUKAST 10 MG TAB PO SCH (21:24)
[2016-10-09 21:27] LABS: Glucose,Whole Blood 81 mg/dL (75-99)
[2016-10-09 21:52] LABS: Creatine Kinase <20 U/L (30-135)
[2016-10-09 22:04] LABS: Creatine Kinase MB <0.2 ng/mL (0.0-2.4); Troponin I <0.012 ng/mL (0.000-0.034)
[2016-10-09] MEDS: INSULN ASP PRT/INSULIN ASPART 100 UNIT/ML 10 ML VIAL SQ SCH (22:10)
[2016-10-09 23:29] LABS: Cholesterol 114 mg/dL (<200); HDL Cholesterol 21 mg/dL (40-60)
[2016-10-10] MEDS: IPRATROPIUM-ALBUTEROL 3 ML NEB INHALATION SCH ×4 (01:56→19:28)
[2016-10-10 05:42] LABS: Glucose,Whole Blood 95 mg/dL (75-99)
[2016-10-10] MEDS: INSULN ASP PRT/INSULIN ASPART 100 UNIT/ML 10 ML VIAL SQ SCH ×3 (07:01→21:17)
[2016-10-10] MEDS: traMADol 50 MG TAB PO PRN ×2 (07:36→23:11)
--- NOTE | 2016-10-10 07:36 | P.NPCON ---
History of Present Illness - Reason for Consult acute renal failure - History of Present Illness reason for consultation: Acute kidney injury History of present illness: Patient is a 65-year-old female seen in renal consultation for acute kidney injury. Her creatinine May 2016 was near 1 and elevated at 2.66 this admission. Patient has an abdominal wound and was at the wound center yesterday where she developed hypotension and tachycardia. She was sent to the hospital for further care. She was noted to be in A. fib with RVR with systolic blood pressure in the 90s and heart rate near 120. Her oral Cardizem was resumed and her heart rate this morning is 69. She denies any chest pain or shortness of breath. Her potassium was also slightly elevated at 5.8. In a home medications I note that she was taking potassium supplementation along with an RIRI inhibitor as well as Bactrim. Patient is not a very reliable historian and is not sure as to when she last took Bactrim. She's currently maintained on normal saline at 100 mL an hour. She denies any hematuria or dysuria. No vomiting or diarrhea. Oral intake is good. Denies use of NSAIDs. Vital signs are stable. General: The patient appeared well nourished and normally developed. HEENT: Head exam is unremarkable. Neck is without jugular venous distension. LUNGS: Lungs are clear to auscultation and percussion. Breath sounds decreased. HEART: Rate and Rhythm are regular. First and second heart sounds normal. No murmurs, rubs or gallops. ABDOMEN: Bowel sounds present. Erythema noted. Dressing without any obvious drainage. EXTREMITITES: No clubbing, cyanosis, or edema. 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 Chronic atrial fibrillation, chronic restrictive and obstructive lung disease secondary to morbid obesity and underlying bronchial asthma, chronic anemia History of Any Multi-Drug Resistant Organisms: None Reported Past Surgical History: Breast Surgery, Hernia Repair Additional Past Surgical History / Comment(s): cataracts Past Anesthesia/Blood Transfusion Reactions: No Reported Reaction Past Psychological History: Anxiety Additional Psychological History / Comment(s): Patient is now in extended care. Lifelong nonsmoker. His niece and nephews does not relate to children. No experience. No travel. No animal exposures. Smoking Status: Never smoker Past Alcohol Use History: None Reported Past Drug Use History: None Reported - Past Family History Mother Family Medical History: CVA/TIA Father Additional Family Medical History / Comment(s): WAS INJURED [place], also had hx tb but from complications of his injuries Brother(s) Additional Family Medical History / Comment(s): at age 2 years 10months tb Medications and Allergies Home Medications Medication Instructions Recorded Confirmed Type Montelukast Sodium [Singulair] 10 mg PO HS 10/10/15 10/09/16 History Potassium Chloride ER [K-Dur 20] 20 meq PO DAILY 03/04/16 10/09/16 History Budesonide/Formoterol Fumarate 2 puff INHALATION RT-BID 05/13/16 10/09/16 History [Symbicort 160-4.5 Mcg Inhaler] Insulin Aspart Protam & Aspart 15 unit SQ HS 05/13/16 10/09/16 History [NovoLOG MIX 70-30 Flexpen] Insulin Aspart Protam & Aspart 25 unit SQ DAILY 05/13/16 10/09/16 History [NovoLOG MIX 70-30 Flexpen] Acetaminophen [Tylenol] 650 mg PO Q4H PRN 10/09/16 10/09/16 History Atorvastatin [Lipitor] 10 mg PO HS 10/09/16 10/09/16 History Famotidine [Pepcid] 20 mg PO HS 10/09/16 10/09/16 History Ferrous Sulfate [Feosol] 325 mg PO DAILY 10/09/16 10/09/16 History Folic Acid 1 mg PO DAILY 10/09/16 10/09/16 History Furosemide [Lasix] 40 mg PO BID 10/09/16 10/09/16 History Guaifenesin/Pseudoephedrne HCl 1 tab PO BID 10/09/16 10/09/16 History [Mucinex D ER Tablet] Ipratropium-Albuterol Nebulize 3 ml INHALATION RT-Q6H 10/09/16 10/09/16 History [Duoneb 0.5 mg-3 mg/3 ml Soln] Lidocaine 2% Gel [Xylocaine Jelly 1 applic TOPICAL DAILY 10/09/16 10/09/16 History 2%] Milk Of Magnesia 1200mg/15ml 2,400 mg PO Q72H PRN 10/09/16 10/09/16 History Multivitamins, Thera [Multivitamin 1 tab PO DAILY 10/09/16 10/09/16 History (formulary)] Rivaroxaban [Xarelto] 20 mg PO HS 10/09/16 10/09/16 History Sulfamethoxazole/Trimethoprim 1 tab PO BID 10/09/16 10/09/16 History [Bactrim SS 400-80 mg] Tiotropium 18 Mcg/Puff [Spiriva] 1 puff INHALATION RT-DAILY 10/09/16 10/09/16 History clonazePAM [KlonoPIN] 0.5 mg PO DAILY PRN 10/09/16 10/09/16 History clonazePAM [KlonoPIN] 0.5 mg PO HS 10/09/16 10/09/16 History hydrOXYzine PAMOATE [Vistaril] 25 mg PO Q6HR PRN 10/09/16 10/09/16 History traMADol HCL [Ultram] 50 mg PO Q6HR PRN 10/09/16 10/09/16 History Allergies Allergy/AdvReac Type Severity Reaction Status Date / Time adhesive Allergy Rash/Hives Verified 10/09/16 09:10 codeine AdvReac Rash/Hives Verified 10/09/16 09:10 Physical Exam Vitals: Vital Signs Temp Pulse Pulse Resp BP BP Pulse Ox 10/10/16 04:00 98.2 F 117 H 18 119/61 96 10/10/16 00:00 122 H 18 92/51 92 L 10/09/16 20:00 98.4 F 69 18 149/94 97 10/09/16 19:31 118 H 10/09/16 19:20 121 H 10/09/16 16:33 98.8 F 118 H 16 103/50 100 10/09/16 15:00 117 H 18 99/57 98 10/09/16 14:03 98.4 F 119 H 16 108/62 99 10/09/16 12:10 97 F L 113 H 16 124/54 97 10/09/16 12:00 117 H 18 97/49 100 10/09/16 10:31 120 H 18 98/54 99 10/09/16 09:12 119 H 18 103/59 99 10/09/16 08:53 97.4 F L 122 H 20 84/48 100 Intake and Output 10/09/16 10/10/16 10/10/16 22:59 06:59 14:59 Intake Total 650 Output Total 200 Balance -200 650 Intake: Intake, IV Titration 650 Amount Sodium Chloride 0.9% 1, 550 000 ml @ 100 mls/hr IV . Q10H [facility] Rx#:[id number] ceFAZolin 1,000 mg In 100 Dextrose/Water 1 50ml.bag @ 100 mls/hr IVPB Q12H [facility] Rx#:[id number] Output: Urine 200 Other: Voiding Method Bedside Commode Bedside Commode # Bowel Movements 0 0 Weight 102.5 kg Results - Lab Results Most recent lab results Calcium 10.0 mg/dL (8.4-10.2) 10/09/16 09:57 Phosphorus 4.3 mg/dL (2.5-4.5) 10/09/16 09:57 Magnesium 2.0 mg/dL (1.6-2.3) 10/09/16 09:57 10/09/16 09:57 10/09/16 09:57 Assessment and Plan Plan: Assessment: #1. Nonoliguric acute kidney injury mostly prerenal secondary to hypotension and hemodynamic instability. Creatinine elevated at 2.66 on admission. Labs from today are pending at this time. Urinalysis is benign. #2. Atrial fibrillation with RVR. Now rate controlled. #3. Pyuria. #4. Abdominal wound being managed at the wound center. Infectious disease following. #5. Hyperkalemia secondary to acute kidney injury and further worsened with the use of potassium supplementation, RIRI inhibitor as well as Bactrim. Plan: Decrease rate of IV fluids to 50 mL an hour. Hold RIRI inhibitor and diuretics for now. Discontinue potassium supplementation. Encourage oral intake. Avoid nephrotoxic agents and hypotensive episodes. Antibiotics per infectious disease recommendations. Follow-up urine culture. Repeat electrolytes in the morning. Thank you for the consultation. I will continue to follow the patient with you during her hospital stay.
[2016-10-10] MEDS: FOLIC ACID 1 MG TAB PO SCH (07:58)
[2016-10-10] MEDS: MULTIVITAMINS, THERA 1 EACH TAB PO SCH (07:58)
[2016-10-10] MEDS: PSEUDOEPHEDRINE 30 MG TAB PO SCH (07:58)
[2016-10-10] MEDS: METOPROLOL TARTRATE 25 MG TAB PO SCH ×2 (07:59→21:08)
[2016-10-10] MEDS: FERROUS SULFATE 325 MG TAB PO SCH (07:59)
[2016-10-10] MEDS: SERTRALINE 100 MG TAB PO SCH (07:59)
[2016-10-10] MEDS: DILTIAZEM CD 120 MG CAP.ER.24H PO SCH (07:59)
[2016-10-10] MEDS: guaiFENesin 600 MG TABLET.ER PO SCH ×2 (07:59→21:08)
[2016-10-10] MEDS ORDERED: TIOTROPIUM 18 MCG/PUFF INHALER INHALATION SCH (08:00)
[2016-10-10] MEDS ORDERED: ceFAZolin 1 GM in SODIUM CHLORIDE 0.9% 100 ML IVPB SCH (08:00)
[2016-10-10] MEDS: SYMBICORT 160-4.5 MCG INHALER INHALATION SCH ×2 (08:02→19:27)
--- NOTE | 2016-10-10 08:35 | P.CRDCN ---
History of Present Illness Consult date: 10/10/16 Requesting physician: Bhavik Tompikns Jr Consult reason: atrial fibrillation, hypotension Chief complaint: Hypotension History of present illness: This is a 65-year-old female with known history of COPD and emphysema , diabetes, hyperlipidemia, morbid obesity, paroxysmal atrial fibrillation, who apparently was at the clinic yesterday and became quite hypotensive. Patient's heart rate was also noted to be up in the 120s to 130s. For this reason she was admitted to the hospital for further evaluation. Blood pressure on admission 84/40 with a heart rate in the 120s. Blood pressure this morning 100/ 50, heart rate 120, temperature 97.6, 99% on 2 L of oxygen. EKG shows a sinus tachycardia with nonspecific ST-T wave changes. WBC 7.3, hemoglobin 11.7, platelet count 351. Potassium 5.8, BUN 59 and creatinine 2.6. Troponins are negative 3. Chest x-ray reveals patchy density in the right medial lung base which may reflect chronic inflammatory change. At the time of my examination this morning, patient denies any shortness of breath, she does state that she's felt dizzy recently and generally not well. She is also oriented to person but not place and time.. 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 Chronic atrial fibrillation, chronic restrictive and obstructive lung disease secondary to morbid obesity and underlying bronchial asthma, chronic anemia History of Any Multi-Drug Resistant Organisms: None Reported Past Surgical History: Breast Surgery, Hernia Repair Additional Past Surgical History / Comment(s): cataracts Past Anesthesia/Blood Transfusion Reactions: No Reported Reaction Past Psychological History: Anxiety Additional Psychological History / Comment(s): Patient is now in extended care. Lifelong nonsmoker. His niece and nephews does not relate to children. No experience. No travel. No animal exposures. Smoking Status: Never smoker Past Alcohol Use History: None Reported Past Drug Use History: None Reported - Past Family History Mother Family Medical History: CVA/TIA Father Additional Family Medical History / Comment(s): WAS INJURED IN [place], also had hx tb but from complications of his injuries Brother(s) Additional Family Medical History / Comment(s): at age 2 years 10months tb Medications and Allergies Home Medications Medication Instructions Recorded Confirmed Type Montelukast Sodium [Singulair] 10 mg PO HS 10/10/15 10/09/16 History Potassium Chloride ER [K-Dur 20] 20 meq PO DAILY 03/04/16 10/09/16 History Budesonide/Formoterol Fumarate 2 puff INHALATION RT-BID 05/13/16 10/09/16 History [Symbicort 160-4.5 Mcg Inhaler] Insulin Aspart Protam & Aspart 15 unit SQ HS 05/13/16 10/09/16 History [NovoLOG MIX 70-30 Flexpen] Insulin Aspart Protam & Aspart 25 unit SQ DAILY 05/13/16 10/09/16 History [NovoLOG MIX 70-30 Flexpen] Acetaminophen [Tylenol] 650 mg PO Q4H PRN 10/09/16 10/09/16 History Atorvastatin [Lipitor] 10 mg PO HS 10/09/16 10/09/16 History Famotidine [Pepcid] 20 mg PO HS 10/09/16 10/09/16 History Ferrous Sulfate [Feosol] 325 mg PO DAILY 10/09/16 10/09/16 History Folic Acid 1 mg PO DAILY 10/09/16 10/09/16 History Furosemide [Lasix] 40 mg PO BID 10/09/16 10/09/16 History Guaifenesin/Pseudoephedrne HCl 1 tab PO BID 10/09/16 10/09/16 History [Mucinex D ER Tablet] Ipratropium-Albuterol Nebulize 3 ml INHALATION RT-Q6H 10/09/16 10/09/16 History [Duoneb 0.5 mg-3 mg/3 ml Soln] Lidocaine 2% Gel [Xylocaine Jelly 1 applic TOPICAL DAILY 10/09/16 10/09/16 History 2%] Milk Of Magnesia 1200mg/15ml 2,400 mg PO Q72H PRN 10/09/16 10/09/16 History Multivitamins, Thera [Multivitamin 1 tab PO DAILY 10/09/16 10/09/16 History (formulary)] Rivaroxaban [Xarelto] 20 mg PO HS 10/09/16 10/09/16 History Sulfamethoxazole/Trimethoprim 1 tab PO BID 10/09/16 10/09/16 History [Bactrim SS 400-80 mg] Tiotropium 18 Mcg/Puff [Spiriva] 1 puff INHALATION RT-DAILY 10/09/16 10/09/16 History clonazePAM [KlonoPIN] 0.5 mg PO DAILY PRN 10/09/16 10/09/16 History clonazePAM [KlonoPIN] 0.5 mg PO HS 10/09/16 10/09/16 History hydrOXYzine PAMOATE [Vistaril] 25 mg PO Q6HR PRN 10/09/16 10/09/16 History traMADol HCL [Ultram] 50 mg PO Q6HR PRN 10/09/16 10/09/16 History Allergies Allergy/AdvReac Type Severity Reaction Status Date / Time adhesive Allergy Rash/Hives Verified 10/09/16 09:10 codeine AdvReac Rash/Hives Verified 10/09/16 09:10 Physical Exam Vitals: Vital Signs Temp Pulse Pulse Resp BP BP Pulse Ox 10/10/16 08:09 97.6 F 120 H 16 100/54 99 10/10/16 08:02 110 H 16 94 L 10/10/16 04:00 98.2 F 117 H 18 119/61 96 10/10/16 00:00 122 H 18 92/51 92 L 10/09/16 20:00 98.4 F 69 18 149/94 97 10/09/16 19:31 118 H 10/09/16 19:20 121 H 10/09/16 16:33 98.8 F 118 H 16 103/50 100 10/09/16 15:00 117 H 18 99/57 98 10/09/16 14:03 98.4 F 119 H 16 108/62 99 10/09/16 12:10 97 F L 113 H 16 124/54 97 10/09/16 12:00 117 H 18 97/49 100 10/09/16 10:31 120 H 18 98/54 99 10/09/16 09:12 119 H 18 103/59 99 10/09/16 08:53 97.4 F L 122 H 20 84/48 100 Intake and Output 10/09/16 10/10/16 10/10/16 22:59 06:59 14:59 Intake Total 650 118 Output Total 200 400 Balance -200 650 -282 Intake: Intake, IV Titration 650 Amount Sodium Chloride 0.9% 1, 550 000 ml @ 100 mls/hr IV . Q10H [facility] Rx#:[id number] ceFAZolin 1,000 mg In 100 Dextrose/Water 1 50ml.bag @ 100 mls/hr IVPB Q12H [facility]AGUFTA Rx#:[id number] Oral 118 Output: Urine 200 400 Other: Voiding Method Bedside Commode Bedside Commode Bedside Commode # Bowel Movements 0 0 Weight 102.5 kg PHYSICAL EXAMINATION: HEENT: Head is atraumatic, normocephalic. Pupils equal, round. Neck is supple. There is no elevated jugular venous pressure. HEART EXAMINATION: Heart S1, S2 normal. No murmur or gallop heard. CHEST EXAMINATION: Lungs are clear with diminished air entry to bases. ABDOMEN: Soft, extensive herniation with large pannus. Evidence of ulceration on the abdominal wall and underlying erythema with drainage. nontender. Bowel sounds are heard. No organomegaly noted. EXTREMITIES: 1+ peripheral pulses with no evidence of peripheral edema and no calf tenderness noted. NEUROLOGIC patient is awake, alert and oriented -3. . Results 10/09/16 09:57 10/09/16 09:57 Cardiac Enzymes 10/09/16 10/09/16 10/09/16 Range/Units 09:57 09:57 15:56 AST 29 (14-36) U/L CK-MB (CK-2) <0.2 <0.2 (0.0-2.4) ng/mL Troponin I <0.012 <0.012 (0.000-0.034) ng/mL 10/09/16 Range/Units 21:20 AST (14-36) U/L CK-MB (CK-2) <0.2 (0.0-2.4) ng/mL Troponin I <0.012 (0.000-0.034) ng/mL Coagulation 10/09/16 Range/Units 09:57 PT 12.0 (9.0-12.0) sec APTT 26.4 (22.0-30.0) sec Lipids 10/09/16 Range/Units 09:57 Triglycerides 120 (<150) mg/dL Cholesterol 114 (<200) mg/dL HDL Cholesterol 21 L (40-60) mg/dL CBC 10/09/16 Range/Units 09:57 WBC 7.3 (3.8-10.6) k/uL RBC 4.27 (3.80-5.40) m/uL Hgb 11.7 (11.4-16.0) gm/dL Hct 36.4 (34.0-46.0) % Plt Count 351 (150-450) k/uL Comprehensive Metabolic Panel 10/09/16 Range/Units 09:57 Sodium 132 L (137-145) mmol/L Potassium 5.8 H (3.5-5.1) mmol/L Chloride 96 L (98-107) mmol/L Carbon Dioxide 26 (22-30) mmol/L BUN 59 H (7-17) mg/dL Creatinine 2.66 H (0.52-1.04) mg/dL Glucose 106 H (74-99) mg/dL Calcium 10.0 (8.4-10.2) mg/dL AST 29 (14-36) U/L ALT 34 (9-52) U/L Alkaline Phosphatase 139 H (38-126) U/L Total Protein 5.9 L (6.3-8.2) g/dL Albumin 3.0 L (3.5-5.0) g/dL Current Medications Generic Name Dose Route Start Last Admin Trade Name Freq PRN Reason Stop Dose Admin Acetaminophen 650 mg 10/09/16 18:34 Tylenol Tab PO Q4H PRN Pain Albuterol/Ipratropium 3 ml 10/09/16 20:00 10/10/16 08:01 Duoneb 0.5 Mg-3 Mg/3 Ml Soln INHALATION 3 ml RT-Q6H [facility] Administration Aspirin 325 mg 10/10/16 09:00 10/10/16 07:59 Aspirin PO 325 mg DAILY [facility]AG[facility]FTA Administration Atorvastatin Calcium 10 mg 10/09/16 21:00 10/09/16 21:22 Lipitor PO 10 mg HS [facility]FTA Administration Budesonide/Formoterol Fumarate 2 puff 10/09/16 20:00 10/10/16 08:02 Symbicort 160-4.5 Mcg Inhaler INHALATION 2 puff RT-BID [facility]AGUFTA Administration Clonazepam 0.5 mg 10/09/16 18:34 Klonopin PO DAILY PRN Anxiety Clonazepam 0.5 mg 10/09/16 21:00 10/09/16 21:22 Klonopin PO 0.5 mg HS [facility]AG[facility]FTA Administration Diltiazem HCl 120 mg 10/10/16 09:00 10/10/16 07:59 Cardizem Cd PO 120 mg DAILY [facility] Administration Famotidine 20 mg 10/09/16 21:00 10/09/16 21:23 Pepcid PO 20 mg HS [facility]AG[facility]FTA Administration Ferrous Sulfate 325 mg 10/10/16 09:00 10/10/16 07:59 Feosol PO 325 mg DAILY SHAG[facility]FTA Administration Folic Acid 1 mg 10/10/16 09:00 10/10/16 07:58 Folic Acid PO 1 mg DAILY [facility] Administration Guaifenesin 600 mg 10/09/16 21:00 10/10/16 07:59 Mucinex PO 600 mg BID [facility] Administration Hydroxyzine Pamoate 25 mg 10/09/16 18:34 Vistaril PO Q6HR PRN Pain Sodium Chloride 1,000 mls @ 50 mls/hr 10/09/16 11:45 10/09/16 21:42 Saline 0.9% IV 100 mls/hr .Q20H [facility] Administration Cefazolin Sodium/Dextrose 1, 50 mls @ 100 mls/hr 10/10/16 08:00 000 mg/ IV Solution IVPB Q12H COUNTS INCLUDE 234 BEDS AT THE [facility] Insulin Aspart 15 unit 10/09/16 21:00 10/09/16 22:10 Novolog Mix 70-30 Vial SQ Not Given HS COUNTS INCLUDE 234 BEDS AT THE [facility] Insulin Aspart 25 unit 10/10/16 07:30 10/10/16 07:37 Novolog Mix 70-30 Vial SQ 25 unit AC-BRKFST COUNTS INCLUDE 234 BEDS AT THE [facility] Administration Lidocaine HCl 1 applic 10/10/16 09:00 Xylocaine Jelly 2% TOPICAL DAILY [facility] Magnesium Hydroxide 2,400 mg 10/09/16 19:05 Milk Of Magnesia PO Q72H PRN Constipation Metoprolol Tartrate 25 mg 10/09/16 21:00 10/10/16 07:59 Lopressor PO 25 mg BID SHAG[facility]FTA Administration Montelukast Sodium 10 mg 10/09/16 21:00 10/09/16 21:24 Singulair PO 10 mg HS COUNTS INCLUDE 234 BEDS AT THE [facility] Administration Morphine Sulfate 4 mg 10/09/16 12:19 10/09/16 21:39 Morphine Sulfate (Inj) IVP 4 mg Q4HR PRN Administration Pain Multivitamins 1 each 10/10/16 09:00 10/10/16 07:58 Theragran PO 1 each DAILY [facility]AGUFTA Administration Nitroglycerin 0.4 mg 10/09/16 11:35 Nitrostat SUBLINGUAL Q5M PRN Chest Pain Pseudoephedrine HCl 60 mg 10/09/16 21:00 10/10/16 07:58 Sudafed PO 60 mg BID [facility]FTA Administration Rivaroxaban 20 mg 10/09/16 21:00 10/09/16 21:24 Xarelto PO 20 mg HS [facility]AG[facility]FTA Administration Sertraline HCl 100 mg 10/10/16 09:00 10/10/16 07:59 Zoloft PO 100 mg DAILY [facility]FTA Administration Tramadol HCl 50 mg 10/09/16 18:34 10/10/16 07:36 Ultram PO 50 mg Q6HR PRN Administration Pain Intake and Output 10/09/16 10/10/16 10/10/16 22:59 06:59 14:59 Intake Total 650 118 Output Total 200 400 Balance -200 650 -282 Intake: Intake, IV Titration 650 Amount Sodium Chloride 0.9% 1, 550 000 ml @ 100 mls/hr IV . Q10H [facility] Rx#:[id number] ceFAZolin 1,000 mg In 100 Dextrose/Water 1 50ml.bag @ 100 mls/hr IVPB Q12H [facility] Rx#:[id number] Oral 118 Output: Urine 200 400 Other: Voiding Method Bedside Commode Bedside Commode Bedside Commode # Bowel Movements 0 0 Weight 102.5 kg 10/09/16 09:57 10/09/16 09:57 EKG Interpretations (text) EKG shows a sinus tachycardia nonspecific ST-T wave changes Assessment and Plan Plan: Assessment and plan #1 hypotension #2 sinus tachycardia, patient does have history of paroxysmal atrial fibrillation. On Xarelto for anticoagulation. #3 acute renal failure #4 history of COPD and emphysema #5 diabetes #6 morbid obesity #7 sleep apnea #8 mental status changes #9 asthma Plan Patient's most recent echocardiogram with Doppler study was performed in February 2016 which revealed an ejection fraction of 50-55%, we will repeat an echo this admission. Hydrate the metoprolol tartrate patient is taking at home. We will also discontinue the pseudoephedrine which could be contributing to the tachycardia. Patient has also been initiated on Cardizem CD. Discontinue aspirin. Blood pressure this morning 120/60. We will check free T4 and TSH level. Further recommendations to follow. DNP note has been reviewed, I agree with a documented findings and plan of care. Patient was seen and examined.
[2016-10-10] MEDS ORDERED: LISINOPRIL 5 MG TAB PO SCH (09:00)
[2016-10-10] MEDS ORDERED: POTASSIUM CHLORIDE ER 20 MEQ TAB.ER PO SCH (09:00)
[2016-10-10] MEDS ORDERED: ASPIRIN 325 MG TAB PO SCH (09:00)
[2016-10-10] MEDS ORDERED: ENOXAPARIN 40 MG/0.4 ML SYRINGE SQ SCH (09:00)
[2016-10-10] MEDS: SODIUM CHLORIDE 0.9% 1,000 ML IV SCH (09:29)
[2016-10-10] MEDS: ceFAZolin 1,000 MG in DEXTROSE/WATER 1 50ML.BAG IVPB SCH ×2 (09:30→21:08)
[2016-10-10 11:42] LABS: Glucose,Whole Blood 42 mg/dL (75-99)
[2016-10-10 11:57] LABS: Glucose,Whole Blood 55 mg/dL (75-99)
[2016-10-10 12:18] LABS: Glucose,Whole Blood 84 mg/dL (75-99)
--- NOTE | 2016-10-10 15:04 | ECHOF ---
Referral Reason:hypotension MEASUREMENTS -------- HEIGHT: 144.8 cm WEIGHT: 102.1 kg BP: 100/54 RVIDd: 2.9 cm (< 3.3) IVSd: 1.4 cm (0.6 - 1.1) LVIDd: 5.1 cm (3.9 - 5.3) LVPWd: 1.4 cm (0.6 - 1.1) IVSs: 1.7 cm LVIDs: 3.8 cm LVPWs: 1.7 cm LAESV Index (A-L): 28.59 ml/m Ao Diam: 3.1 cm (2.0 - 3.7) AV Cusp: 0.8 cm (1.5 - 2.6) LA Diam: 5.0 cm (2.7 - 3.8) MV EXCURSION: 18.351 mm (> 18.000) MV EF SLOPE: 97 mm/s (70 - 150) EPSS: 1.2 cm RAP: 5.00 mmHg RVSP: 39.77 mmHg FINDINGS -------- Atrial fibrillation. This was a technically difficult study with suboptimal views. Patient refused Definity. There is moderate concentric left ventricular hypertrophy. Overall left ventricular systolic function is low-normal with, an EF between 50 - 55 %. The right ventricle is normal in size and function. LA is midly dilated 29-33ml/m2. The right atrium is normal in size. Aortic valve is trileaflet and is mildly thickened. There is no evidence of aortic regurgitation. There is no evidence of aortic stenosis. The mitral valve leaflets are mildly thickened. Mild mitral annular calcification present. There is trace to mild mitral regurgitation. Trace tricuspid regurgitation present. There is mild pulmonary hypertension. The right ventricular systolic pressure, as measured by Doppler, is 39.77mmHg. The pulmonic valve was not well visualized. The aortic root size is normal. Normal inferior vena cava with normal inspiratory collapse consistent with estimated right atrial pressure of 5 mmHg. The pericardium is normal. There is no pericardial effusion. CONCLUSIONS -------- 1. Atrial fibrillation. 2. There is trace to mild mitral regurgitation. 3. Trace tricuspid regurgitation present. 4. There is mild pulmonary hypertension. 5. The right ventricular systolic pressure, as measured by Doppler, is 39.77mmHg. 6. The pulmonic valve was not well visualized. 7. The aortic root size is normal. 8. There is no pericardial effusion. 9. This was a technically difficult study with suboptimal views. 10. Patient refused Definity. 11. There is moderate concentric left ventricular hypertrophy. 12. Overall left ventricular systolic function is low-normal with, an EF between 50 - 55 %. 13. LA is midly dilated 29-33ml/m2. 14. Aortic valve is trileaflet and is mildly thickened. 15. The mitral valve leaflets are mildly thickened. 16. Mild mitral annular calcification present. PARTS DEPARTMENT SUPERVISOR: Aman Jones RDCS
[2016-10-10 16:44] LABS: Glucose,Whole Blood 88 mg/dL (75-99)
--- NOTE | 2016-10-10 16:58 | P.PN ---
Subjective Principal diagnosis: Abdominal ulcer 65-year-old female with a long-standing history of obesity, asthma COPD and coronary artery disease with persistent atrial fibrillation presented to the [facility] wound healing center today. At that time she was on evidence of hypotension and tachycardia. She was sent to the emergency center and has cut subsequently been admitted for further evaluation of her atrial fibrillation and hypotension. The patient relates she's been having difficulty with abdominal wound for several weeks. Despite some local care the ulcer was not healing and consequently was referred to the wound center for further intervention. She relates a site is uncomfortable. She is denying a large amount of pain. Denies fevers chills or rigors. She has significant weakness. It is noted that recently she was admitted. She had been an extended care and signed out AMA and was walking around her neighborhood without shoes. I believe it was winter time. She's now been an extended care for ongoing interventions. Is feeling somewhat better today. She denying interim new difficulties. Has been evaluated by nephrology. They agree with the discontinuation of the Bactrim. Objective - Vital Signs Vital signs: Vital Signs Temp 97.8 F 10/10/16 16:00 Pulse 120 H 10/10/16 16:00 Resp 16 10/10/16 16:00 BP 102/53 10/10/16 16:00 Pulse Ox 94 L 10/10/16 16:00 Intake & Output 10/09/16 10/10/16 10/10/16 18:59 06:59 18:59 Intake Total 650 336 Output Total 0 200 400 Balance 0 450 -64 Weight 140.6 kg 102.5 kg 102.5 kg Intake: Intake, IV Titration 650 Amount Sodium Chloride 0.9% 1, 550 000 ml @ 50 mls/hr IV . Q20H [facility] Rx#:[id number] ceFAZolin 1,000 mg In 100 Dextrose/Water 1 50ml.bag @ 100 mls/hr IVPB Q12H [facility] Rx#:[id number] Oral 336 Output: Urine 0 200 400 Other: Voiding Method Bedside Commode Bedside Commode # Bowel Movements 0 - Exam Obese 65-year-old woman who is comfortable at this time HEENT: Anicteric conjunctiva are pink and moist nasal mucosa grossly intact without significant lesions, there is no thrush. Neck: The neck is supple without significant lymphadenopathy or thyromegaly. Lungs: Good bilateral air entry without significant crackles or wheezing. There is no significant bronchial sounds. There is no egophony or dullness. Heart: Regular rate and rhythm with an audible S1-S2, no S3 no S4. There is no significant murmur click or rub, PMI was nondisplaced. Abdomen: Positive bowel sounds soft has an extensive herniation with large pannus. There is evidence of ulceration abdominal wall measuring at 2 x 2 x 0.2 with underlying erythema and some drainage Extremities: The upper extremities have excellent pulses they are symmetric, no significant petechiae or telangiectasia. No splinter hemorrhages were noted. Lower extremities have bilateral edema no open ulcerations are seen Neuro: Awake alert oriented to person place and time. There are no acute new gross focal sensory motor deficits. - Labs CBC & Chem 7: 10/09/16 09:57 10/09/16 09:57 Labs: Abnormal Lab Results - Last 24 Hours (Table) 10/09/16 10/09/16 10/09/16 Range/Units 09:57 21:20 Unknown POC Glucose (mg/dL) (75-99) mg/dL Total Creatine Kinase <20 L (30-135) U/L HDL Cholesterol 21 L (40-60) mg/dL Urine Appearance Cloudy H (Clear) Ur Leukocyte Esterase Large H (Negative) Urine WBC 20 H (0-5) /hpf Hyaline Casts 3 H (0-2) /lpf 10/10/16 10/10/16 Range/Units 11:36 11:55 POC Glucose (mg/dL) 42 L 55 L (75-99) mg/dL Total Creatine Kinase (30-135) U/L HDL Cholesterol (40-60) mg/dL Urine Appearance (Clear) Ur Leukocyte Esterase (Negative) Urine WBC (0-5) /hpf Hyaline Casts (0-2) /lpf Microbiology - Last 24 Hours (Table) 10/09/16 09:53 Blood Culture Gram Stain - Preliminary Blood Blood Culture - Preliminary 10/09/16 09:57 Blood Culture - Final Blood 10/09/16 20:27 Urine Culture - Preliminary Urine,Voided 10/09/16 12:29 Urine Culture - Preliminary Urine,Voided Laboratory Results WBC 7.3 k/uL (3.8-10.6) 10/09/16 09:57 RBC 4.27 m/uL (3.80-5.40) 10/09/16 09:57 Hgb 11.7 gm/dL (11.4-16.0) 10/09/16 09:57 Hct 36.4 % (34.0-46.0) 10/09/16 09:57 MCV 85.4 fL (80.0-100.0) 10/09/16 09:57 MCH 27.4 pg (25.0-35.0) 10/09/16 09:57 MCHC 32.0 g/dL (31.0-37.0) 10/09/16 09:57 RDW 16.0 % (11.5-15.5) H 10/09/16 09:57 Plt Count 351 k/uL (150-450) 10/09/16 09:57 Neutrophils % (Manual) 66.0 % 10/09/16 09:57 Lymphocytes % (Manual) 17.0 % 10/09/16 09:57 Monocytes % (Manual) 10.0 % 10/09/16 09:57 Eosinophils % (Manual) 7.0 % 10/09/16 09:57 Neutrophils # (Manual) 4.8 k/uL (1.3-7.7) 10/09/16 09:57 Lymphocytes # (Manual) 1.2 k/uL (1.0-4.8) 10/09/16 09:57 Monocytes # (Manual) 0.7 k/uL (0-1.0) 10/09/16 09:57 Eosinophils # (Manual) 0.5 k/uL (0-0.7) 10/09/16 09:57 Nucleated RBCs 0 /100 WBC (0-0) 10/09/16 09:57 Hypochromasia Slight 10/09/16 09:57 Poikilocytosis (manual Present 10/09/16 09:57 Anisocytosis Slight 10/09/16 09:57 PT 12.0 sec (9.0-12.0) 10/09/16 09:57 INR 1.2 (<1.2) H 10/09/16 09:57 APTT 26.4 sec (22.0-30.0) 10/09/16 09:57 Sodium 132 mmol/L (137-145) L 10/09/16 09:57 Potassium 5.8 mmol/L (3.5-5.1) H 10/09/16 09:57 Chloride 96 mmol/L (98-107) L 10/09/16 09:57 Carbon Dioxide 26 mmol/L (22-30) 10/09/16 09:57 Anion Gap 10 mmol/L 10/09/16 09:57 BUN 59 mg/dL (7-17) H 10/09/16 09:57 Creatinine 2.66 mg/dL (0.52-1.04) H 10/09/16 09:57 Est GFR (MDRD) Af Amer 22 (>60 ml/min/1.73 sqM) 10/09/16 09:57 Est GFR (MDRD) Non-Af 18 (>60 ml/min/1.73 sqM) 10/09/16 09:57 Glucose 106 mg/dL (74-99) H 10/09/16 09:57 POC Glucose (mg/dL) 88 mg/dL (75-99) 10/10/16 16:42 POC Glu Gin Pole Operator Isi Aguilar 10/10/16 16:42 Plasma Lactic Acid Russ 1.2 mmol/L (0.7-2.0) 10/09/16 09:57 Calcium 10.0 mg/dL (8.4-10.2) 10/09/16 09:57 Phosphorus 4.3 mg/dL (2.5-4.5) 10/09/16 09:57 Magnesium 2.0 mg/dL (1.6-2.3) 10/09/16 09:57 Total Bilirubin 0.5 mg/dL (0.2-1.3) 10/09/16 09:57 AST 29 U/L (14-36) 10/09/16 09:57 ALT 34 U/L (9-52) 10/09/16 09:57 Alkaline Phosphatase 139 U/L (38-126) H 10/09/16 09:57 Total Creatine Kinase <20 U/L (30-135) L 10/09/16 21:20 CK-MB (CK-2) <0.2 ng/mL (0.0-2.4) 10/09/16 21:20 CK-MB (CK-2) Rel Index 10/09/16 21:20 Troponin I <0.012 ng/mL (0.000-0.034) 10/09/16 21:20 Total Protein 5.9 g/dL (6.3-8.2) L 10/09/16 09:57 Albumin 3.0 g/dL (3.5-5.0) L 10/09/16 09:57 Triglycerides 120 mg/dL (<150) 10/09/16 09:57 Cholesterol 114 mg/dL (<200) 10/09/16 09:57 LDL Cholesterol, Calc 69 mg/dL (0-99) 10/09/16 09:57 HDL Cholesterol 21 mg/dL (40-60) L 10/09/16 09:57 TSH 2.070 mIU/L (0.465-4.680) 10/09/16 09:57 Urine Color Yellow 10/09/16 Unknown Urine Appearance Cloudy (Clear) H 10/09/16 Unknown Urine pH 5.5 (5.0-8.0) 10/09/16 Unknown Ur Specific [place] 1.010 (1.001-1.035) 10/09/16 Unknown Urine Protein Negative (Negative) 10/09/16 Unknown Urine Glucose (UA) Negative (Negative) 10/09/16 Unknown Urine Ketones Negative (Negative) 10/09/16 Unknown Urine Blood Negative (Negative) 10/09/16 Unknown Urine Nitrite Negative (Negative) 10/09/16 Unknown Urine Bilirubin Negative (Negative) 10/09/16 Unknown Urine Urobilinogen <2.0 mg/dL (<2.0) 10/09/16 Unknown Ur Leukocyte Esterase Large (Negative) H 10/09/16 Unknown Urine RBC 1 /hpf (0-5) 10/09/16 Unknown Urine WBC 20 /hpf (0-5) H 10/09/16 Unknown Urine WBC Clumps Rare /hpf (None) H 10/09/16 12:29 Ur Squamous Epith Cells 2 /hpf (0-4) 10/09/16 Unknown Hyaline Casts 3 /lpf (0-2) H 10/09/16 Unknown Urine Mucus Rare /hpf (None) H 10/09/16 12:29 Microbiology 10/09/16 09:53 Blood Blood Culture Gram Stain - Preliminary 10/09/16 09:53 Blood Blood Culture - Preliminary 10/09/16 09:57 Blood Blood Culture - Final 10/09/16 20:27 Urine,Voided Urine Culture - Preliminary 10/09/16 12:29 Urine,Voided Urine Culture - Preliminary Assessment and Plan (1) Skin ulcer of abdominal wall with fat layer exposed Narrative/Plan: 65-year-old female who presents to Hospital for evaluation the wound center. However presentation she was found evidence of hypotension and tachycardia and was referred to the emergency center. She subsequently has been admitted for evaluation of her atrial fibrillation and hypotension. She has evidence of the abdominal wall ulceration with the fat layer exposed. She does have a recent culture that shows evidence of Proteus mirabilis and MSSA. Consequently cephazolin dosed for her acute renal failure is given. The hyperkalemia is also being treated. There is blood cultures in progress. Urinalysis is quite benign and urine culture is in progress and negative so far.. Local wound care with therahoney utilized which the patient is finding very soothing to the Abdominal wall ulceration. When stable following the wound healing Center Status: Acute
[2016-10-10] MEDS: LIDOCAINE 2% GEL 30 ML TUBE TOPICAL SCH (17:15)
--- NOTE | 2016-10-10 17:21 | P.PN ---
Subjective Principal diagnosis: Acute renal injury, A. fib with RVR Patient is 65-year-old female known to our practice creatinine May was near 1 and today it was elevated 2.66. Patient has an abdominal wound that was seen at the wound center yesterday where she developed hypotension and tachycardia. She was sent to the ER found to be in A. fib with RVR systolic breast pressure in the 90s heart rate was 120 . She was restarted on Cardizem 100 120 CD her heart rate this morning was 69 Chest pain denies shortness of breath or potassium was also slightly elevated at 5.8 her and her home medications she was placed on dante potassium and Bactrim the director marketing communications is already stopped them I believe they were stopped yesterday she denies hematuria dysuria no vomiting or diarrhea oral intake as per improved denies use of NSAIDs Objective - Vital Signs Vital signs: Vital Signs Temp 97.8 F 10/10/16 16:00 Pulse 120 H 10/10/16 16:00 Resp 16 10/10/16 16:00 BP 102/53 10/10/16 16:00 Pulse Ox 94 L 10/10/16 16:00 Intake & Output 10/09/16 10/10/16 10/10/16 18:59 06:59 18:59 Intake Total 650 336 Output Total 0 200 400 Balance 0 450 -64 Weight 140.6 kg 102.5 kg 102.5 kg Intake: Intake, IV Titration 650 Amount Sodium Chloride 0.9% 1, 550 000 ml @ 50 mls/hr IV . Q20H [facility] Rx#:[id number] ceFAZolin 1,000 mg In 100 Dextrose/Water 1 50ml.bag @ 100 mls/hr IVPB Q12H [facility] Rx#:[id number] Oral 336 Output: Urine 0 200 400 Other: Voiding Method Bedside Commode Bedside Commode # Bowel Movements 0 - Exam General: [Patient awake, alert and oriented times 3. Patient in no acute distress.] HEENT: [PERRL. EOMI. No pharyngeal erythema or exudate.] Neck: [No adenopathy.] Cardiac: [Heart regular in rate and rhythm. No S3. No S4. No clicks, rubs. No murmur.] Lungs: [Clear to auscultation bilaterally.] Abdomen: [No mass. No organomegaly. Bowel sounds presnt and normoactive in all 4 quadrants.] Large abdominal pannus with abdominal wound Extremes: [No edema no cyanosis no claudication normal pulses] : [] Musculoskeletal: [No joint erythema, edema or tenderness.] Skin: [No rash.] Neurologic: [No lateralizing deficits. CN II - XII grossly intact.] Lymphatic: [No adenopathy.] - Labs CBC & Chem 7: 10/09/16 09:57 10/09/16 09:57 Labs: Abnormal Lab Results - Last 24 Hours (Table) 10/09/16 10/09/16 10/09/16 Range/Units 09:57 21:20 Unknown POC Glucose (mg/dL) (75-99) mg/dL Total Creatine Kinase <20 L (30-135) U/L HDL Cholesterol 21 L (40-60) mg/dL Urine Appearance Cloudy H (Clear) Ur Leukocyte Esterase Large H (Negative) Urine WBC 20 H (0-5) /hpf Hyaline Casts 3 H (0-2) /lpf 10/10/16 10/10/16 Range/Units 11:36 11:55 POC Glucose (mg/dL) 42 L 55 L (75-99) mg/dL Total Creatine Kinase (30-135) U/L HDL Cholesterol (40-60) mg/dL Urine Appearance (Clear) Ur Leukocyte Esterase (Negative) Urine WBC (0-5) /hpf Hyaline Casts (0-2) /lpf Microbiology - Last 24 Hours (Table) 10/09/16 09:53 Blood Culture Gram Stain - Preliminary Blood Blood Culture - Preliminary 10/09/16 09:57 Blood Culture - Final Blood 10/09/16 20:27 Urine Culture - Preliminary Urine,Voided 10/09/16 12:29 Urine Culture - Preliminary Urine,Voided Assessment and Plan (1) ARF (acute renal failure) Narrative/Plan: Acute on chronic renal failure consult nephrology patient currently making urine Status: Acute (2) Atrial fibrillation with RVR Narrative/Plan: A. fib with RPR started Cardizem 120 mg CD consult cardiology Status: Acute Plan: Bactrim and Dante for DC'd
[2016-10-10 20:47] LABS: Glucose,Whole Blood 120 mg/dL (75-99)
[2016-10-10] MEDS: FAMOTIDINE 20 MG TAB PO SCH (21:08)
[2016-10-10] MEDS: RIVAROXABAN 15 MG TAB PO SCH (21:08)
[2016-10-10] MEDS: ATORVASTATIN 10 MG TAB PO SCH (21:08)
[2016-10-10] MEDS: clonazePAM 0.5 MG TAB PO SCH (21:08)
[2016-10-10] MEDS: MONTELUKAST 10 MG TAB PO SCH (21:08)
[2016-10-10 22:21] VITALS: RESP 18
[2016-10-11] MEDS: IPRATROPIUM-ALBUTEROL 3 ML NEB INHALATION SCH ×5 (02:53→20:02)
[2016-10-11] MEDS: traMADol 50 MG TAB PO PRN ×2 (04:11→20:10)
[2016-10-11 06:09] LABS: Glucose,Whole Blood 109 mg/dL (75-99)
[2016-10-11 06:42] LABS: Calcium 9.2 mg/dL (8.4-10.2); Potassium 4.6 mmol/L (3.5-5.1)
[2016-10-11] MEDS: INSULN ASP PRT/INSULIN ASPART 100 UNIT/ML 10 ML VIAL SQ SCH ×2 (07:04→23:54)
[2016-10-11] MEDS: SODIUM CHLORIDE 0.9% 1,000 ML IV SCH (07:52)
[2016-10-11] MEDS: MULTIVITAMINS, THERA 1 EACH TAB PO SCH (08:08)
[2016-10-11] MEDS: SERTRALINE 100 MG TAB PO SCH (08:08)
[2016-10-11] MEDS: FOLIC ACID 1 MG TAB PO SCH (08:08)
[2016-10-11] MEDS: FERROUS SULFATE 325 MG TAB PO SCH (08:08)
[2016-10-11] MEDS: DILTIAZEM CD 120 MG CAP.ER.24H PO SCH (08:08)
[2016-10-11] MEDS: guaiFENesin 600 MG TABLET.ER PO SCH ×2 (08:08→20:11)
[2016-10-11] MEDS: METOPROLOL TARTRATE 25 MG TAB PO SCH ×2 (08:08→20:11)
[2016-10-11] MEDS: LIDOCAINE 2% GEL 30 ML TUBE TOPICAL SCH (08:09)
[2016-10-11] MEDS: SYMBICORT 160-4.5 MCG INHALER INHALATION SCH ×2 (08:18→20:02)
--- NOTE | 2016-10-11 09:19 | PN ---
Patient is seen for follow up of acute kidney injury. She was admitted to the hospital from the [facility] with hypotension and tachycardia. Patient was in A. fib with RVR. She is currently on oral Cardizem. Her serum creatinine was 2.6 mg/dL on 10/09. This morning it is down 1.42. Patient has been voiding good. Previous creatinine has been at 1.2 to 1.4 mg/dL. Patient wants to go home. On examination blood pressure is 85/43, heart rate 120 per minute. She is afebrile. Examination of the heart: S1, S2. Examination of the lungs: Bilateral breath sounds are heard. Abdomen is soft, nontender. Examination of lower extremities shows no evidence of edema. LEGAL BILLING COORDINATOR is grossly intact. Labs show sodium 132, potassium 4.6, BUN 44, serum creatinine 1.42. Calcium 9.2. ASSESSMENT: 1. Acute kidney injury secondary to hemodynamic instability, currently improved. 2. Atrial fibrillation with RVR. Heart rate staying at about 112 per minute. 3. Patient is maintained on Lopressor and oral Cardizem. Blood pressure remains on the lower side. 4. Chronic kidney disease with previous creatinine about 1.2 to 1.4 mg/dL. Etiology is nephrosclerosis. 5. Abdominal wound being managed by the Wound Center and being followed by Dr. Duarte. PLAN: Continue to encourage increased oral intake. Patient wants to go home. She could go from nephrology standpoint. However, I do see that her blood pressure still remains on the lower side. We need to continue with the antibiotics for the abdominal wound. Continue to hold off on RIRI inhibitors and diuretics for now. May continue with IV fluids until discharge. AYAD
--- NOTE | 2016-10-11 11:16 | P.PN ---
Subjective This is a 65-year-old female with known history of COPD and emphysema , diabetes, hyperlipidemia, morbid obesity, paroxysmal atrial fibrillation, who apparently was at the clinic yesterday and became quite hypotensive. Patient's heart rate was also noted to be up in the 120s to 130s. For this reason she was admitted to the hospital for further evaluation. Blood pressure on admission 84/40 with a heart rate in the 120s. Blood pressure this morning 100/ 50, heart rate 120, temperature 97.6, 99% on 2 L of oxygen. EKG shows a sinus tachycardia with nonspecific ST-T wave changes. On admission laboratory values showed WBC 7.3, hemoglobin 11.7, platelet count 351. Potassium 5.8, BUN 59 and creatinine 2.6. Troponins are negative 3. Chest x-ray reveals patchy density in the right medial lung base which may reflect chronic inflammatory change. At the time of my examination this morning, patient denies any shortness of breath, dizziness, or chest discomfort. She is also oriented to person but not place and time. She's had an improvement in her renal function with a BUN 44 and creatinine 1.42 and her potassium is 4.6. Blood pressure remains low in the mid 80s systolic. Heart rate remains poorly controlled in the 120s, appears to be in atrial flutter. Objective - Vital Signs Vital signs: Vital Signs Temp 97.8 F 10/11/16 08:17 Pulse 122 H 10/11/16 08:17 Resp 18 10/11/16 08:17 BP 86/53 10/11/16 08:17 Pulse Ox 94 L 10/11/16 08:17 Intake & Output 10/10/16 10/11/16 10/11/16 18:59 06:59 18:59 Intake Total 336 450 Output Total 800 400 Balance -464 50 Weight 102.5 kg 103.4 kg Intake: IV 450 Sodium Chloride 0.9% 1, 400 000 ml @ 50 mls/hr IV . Q20H [facility] Rx#:[id number] ceFAZolin 1,000 mg In 50 Dextrose/Water 1 50ml.bag @ 100 mls/hr IVPB Q12H [facility] Rx#:[id number] Oral 336 Output: Urine 800 400 Other: Voiding Method Bedside Commode Bedside Commode Bedside Commode # Voids 1 - Exam PHYSICAL EXAMINATION: HEENT: Head is atraumatic, normocephalic. Pupils equal, round. Neck is supple. There is no elevated jugular venous pressure. HEART EXAMINATION: Heart sounds regular, S1 and S2 normal. No murmur or gallop heard. CHEST EXAMINATION: Lungs reveal diminished air entry bilateral bases. No chest wall tenderness is noted on palpation or with deep breathing. ABDOMEN: Soft, obese, extensive herniation with large pannus, nontender. Bowel sounds are heard. No organomegaly noted. EXTREMITIES: 1+ peripheral pulses with no evidence of peripheral edema and no calf tenderness noted. NEUROLOGIC patient is awake, alert and oriented to person. . - Labs CBC & Chem 7: 10/09/16 09:57 10/11/16 05:31 Labs: Abnormal Lab Results - Last 24 Hours (Table) 10/10/16 10/10/16 10/10/16 Range/Units 11:36 11:55 20:45 Sodium (137-145) mmol/L BUN (7-17) mg/dL Creatinine (0.52-1.04) mg/dL POC Glucose (mg/dL) 42 L 55 L 120 H (75-99) mg/dL 10/11/16 10/11/16 Range/Units 05:31 06:07 Sodium 132 L (137-145) mmol/L BUN 44 H (7-17) mg/dL Creatinine 1.42 H (0.52-1.04) mg/dL POC Glucose (mg/dL) 109 H (75-99) mg/dL Microbiology - Last 24 Hours (Table) 10/09/16 12:29 Urine Culture - Final Urine,Voided 10/09/16 09:53 Blood Culture Gram Stain - Preliminary Blood Blood Culture - Preliminary Coagulase Negative Staph 10/09/16 09:57 Blood Culture - Final Blood Assessment and Plan Plan: Assessment and plan #1 hypotension #2 atrial tachycardia/atrial flutter, patient does have history of paroxysmal atrial fibrillation. On Xarelto for anticoagulation. #3 acute renal failure, improving #4 history of COPD and emphysema #5 diabetes #6 morbid obesity #7 sleep apnea #8 mental status changes #9 asthma Plan From steel division supervisor perspective, we will continue current medications with the addition of digoxin 0.125 mg IV push now and in 6 hours. We will evaluate patient's renal function and heart rate control tomorrow. Further recommendations to follow. CTE TEACHER note has been reviewed, I agree with a documented findings and plan of care. Patient was seen and examined.
[2016-10-11] MEDS: ceFAZolin 1,000 MG in DEXTROSE/WATER 1 50ML.BAG IVPB SCH ×2 (11:47→20:12)
[2016-10-11] MEDS: DIGOXIN 250 MCG/ML 2 ML AMP IVP SCH ×2 (11:52→17:53)
[2016-10-11 12:08] LABS: Glucose,Whole Blood 142 mg/dL (75-99)
--- NOTE | 2016-10-11 12:44 | P.PN ---
Subjective Principal diagnosis: Acute renal injury, A. fib with RVR Patient is 65-year-old female known to our practice creatinine May was near 1 and today it was elevated 1.46. Patient has an abdominal wound that was seen at the wound center yesterday where she developed hypotension and tachycardia. She was sent to the ER found to be in A. fib with RVR systolic breast pressure in the 90s heart rate was 120 . She was restarted on Cardizem 120 CD her heart rate this morning was 64, blood pressure was 86/53 potassium was normal 4.6. BUN was 44 creatinine was 1.42, a significant improvement from her admission. Objective - Vital Signs Vital signs: Vital Signs Temp 97.8 F 10/11/16 08:17 Pulse 122 H 10/11/16 08:17 Resp 18 10/11/16 08:17 BP 86/53 10/11/16 08:17 Pulse Ox 94 L 10/11/16 08:17 Intake & Output 10/10/16 10/11/16 10/11/16 18:59 06:59 18:59 Intake Total 336 450 Output Total 800 400 Balance -464 50 Weight 102.5 kg 103.4 kg Intake: IV 450 Sodium Chloride 0.9% 1, 400 000 ml @ 50 mls/hr IV . Q20H [facility] Rx#:[id number] ceFAZolin 1,000 mg In 50 Dextrose/Water 1 50ml.bag @ 100 mls/hr IVPB Q12H [facility] Rx#:[id number] Oral 336 Output: Urine 800 400 Other: Voiding Method Bedside Commode Bedside Commode Bedside Commode # Voids 1 - Exam General: [Patient awake, alert and oriented times 3. Patient in no acute distress.] HEENT: [PERRL. EOMI. No pharyngeal erythema or exudate.] Neck: [No adenopathy.] Cardiac: [Heart regular in rate and rhythm. No S3. No S4. No clicks, rubs. No murmur.] Lungs: [Clear to auscultation bilaterally.] Abdomen: [No mass. No organomegaly. Bowel sounds presnt and normoactive in all 4 quadrants.] Large abdominal pannus with abdominal wound Extremes: [No edema no cyanosis no claudication normal pulses] : [] Musculoskeletal: [No joint erythema, edema or tenderness.] Skin: [No rash.] Neurologic: [No lateralizing deficits. CN II - XII grossly intact.] Lymphatic: [No adenopathy.] - Labs CBC & Chem 7: 10/09/16 09:57 10/11/16 05:31 Labs: Abnormal Lab Results - Last 24 Hours (Table) 10/10/16 10/11/16 10/11/16 Range/Units 20:45 05:31 06:07 Sodium 132 L (137-145) mmol/L BUN 44 H (7-17) mg/dL Creatinine 1.42 H (0.52-1.04) mg/dL POC Glucose (mg/dL) 120 H 109 H (75-99) mg/dL 10/11/16 Range/Units 11:51 Sodium (137-145) mmol/L BUN (7-17) mg/dL Creatinine (0.52-1.04) mg/dL POC Glucose (mg/dL) 142 H (75-99) mg/dL Microbiology - Last 24 Hours (Table) 10/09/16 12:29 Urine Culture - Final Urine,Voided 10/09/16 09:53 Blood Culture Gram Stain - Preliminary Blood Blood Culture - Preliminary Coagulase Negative Staph Assessment and Plan (1) ARF (acute renal failure) Narrative/Plan: Acute on chronic renal failure consult nephrology patient currently making urine Today BUN and creatinine are significantly improved Status: Acute (2) Atrial fibrillation with RVR Narrative/Plan: A. fib with RPR started Cardizem 120 mg CD consult cardiology Heart rate is 64 Status: Acute Plan: Bactrim and Dante for DC'd
[2016-10-11 16:17] LABS: Glucose,Whole Blood 153 mg/dL (75-99)
[2016-10-11] MEDS: FAMOTIDINE 20 MG TAB PO SCH (20:11)
[2016-10-11] MEDS: ATORVASTATIN 10 MG TAB PO SCH (20:11)
[2016-10-11] MEDS: RIVAROXABAN 15 MG TAB PO SCH (20:11)
[2016-10-11] MEDS: MONTELUKAST 10 MG TAB PO SCH (20:11)
[2016-10-11] MEDS: clonazePAM 0.5 MG TAB PO SCH (20:12)
[2016-10-11 20:43] LABS: Glucose,Whole Blood 165 mg/dL (75-99)
[2016-10-11 23:29] LABS: Glucose,Whole Blood 139 mg/dL (75-99)
[2016-10-12] MEDS: IPRATROPIUM-ALBUTEROL 3 ML NEB INHALATION SCH ×4 (04:18→18:46)
[2016-10-12 05:53] LABS: Glucose,Whole Blood 154 mg/dL (75-99)
[2016-10-12 06:57] LABS: Anion Gap 10 mmol/L; Blood Urea Nitrogen 35 mg/dL (7-17); Calcium 9.6 mg/dL (8.4-10.2); Carbon Dioxide 21 mmol/L (22-30); Chloride 102 mmol/L (98-107); Glucose 137 mg/dL (74-99); Non-African American GFR(MDRD) 55 (>60 ml/min/1.73 sqM); Potassium 4.8 mmol/L (3.5-5.1); Sodium 133 mmol/L (137-145)
[2016-10-12] MEDS: SODIUM CHLORIDE 0.9% 1,000 ML IV SCH (07:24)
[2016-10-12] MEDS: ceFAZolin 1,000 MG in DEXTROSE/WATER 1 50ML.BAG IVPB SCH ×2 (07:33→19:51)
[2016-10-12] MEDS: INSULN ASP PRT/INSULIN ASPART 100 UNIT/ML 10 ML VIAL SQ SCH ×2 (07:33→22:05)
[2016-10-12] MEDS: METOPROLOL TARTRATE 25 MG TAB PO SCH ×2 (07:34→22:04)
[2016-10-12] MEDS: SERTRALINE 100 MG TAB PO SCH (07:34)
[2016-10-12] MEDS: MULTIVITAMINS, THERA 1 EACH TAB PO SCH (07:34)
[2016-10-12] MEDS: FERROUS SULFATE 325 MG TAB PO SCH (07:34)
[2016-10-12] MEDS: guaiFENesin 600 MG TABLET.ER PO SCH ×2 (07:35→22:05)
[2016-10-12] MEDS: DILTIAZEM CD 120 MG CAP.ER.24H PO SCH (07:35)
[2016-10-12] MEDS: FOLIC ACID 1 MG TAB PO SCH (07:35)
[2016-10-12] MEDS: LIDOCAINE 2% GEL 30 ML TUBE TOPICAL SCH (07:36)
[2016-10-12] MEDS: SYMBICORT 160-4.5 MCG INHALER INHALATION SCH ×2 (08:17→18:48)
--- NOTE | 2016-10-12 09:20 | PN ---
Patient is seen for follow up for acute kidney injury. Her renal function has improved significantly. The patient's serum creatinine is down to 1.0. She was admitted with hypotension and has been maintained on IV fluids at about 50 mL an hour. Currently the patient denies any chest pain or shortness of breath. Her heart rate has been about 105-115 per minute. Patient has a. fib. She is maintained on Lopressor and Cardizem to control the heart rate. On examination today, blood pressure 144/59, heart rate 115 per minute. She is afebrile. HEART: S1/S2. LUNGS: Bilateral breath sounds are heard. ABDOMEN: Soft, nontender. LOWER EXTREMITIES: Show no significant edema. BRINE SUPERVISOR: Grossly intact. The patient is moving all four extremities. LABS: Sodium 133, potassium 4.8, BUN 35, serum creatinine 1.0. ASSESSMENT: 1. Acute kidney injury, prerenal, associated with hypotension and intravascular volume depletion, currently improved. I will stop the IV fluids. The patient can resume her Lasix in 1-2 days post discharge. 2. Hypotension, currently improved. 3. Atrial fibrillation with rapid ventricular response with fair control of heart rate although still remaining slightly on the high side. Continue with the Lopressor and the Cardizem. 4. Abdominal wound, being managed at the wound center and being followed by Dr. Duarte. PLAN: Hep lock IV fluids, resume diuretics as outpatient in 1-2 days post discharge, continue to hold off on the RIRI inhibitors as long as the blood pressure remains low. If her systolic blood pressure is above 140 we can resume the RIRI inhibitors as well as outpatient. Patient can be discharged from nephrology standpoint. AYAD
[2016-10-12 11:34] LABS: Glucose,Whole Blood 60 mg/dL (75-99)
[2016-10-12] MEDS: DIGOXIN 125 MCG TAB PO SCH (12:06)
[2016-10-12 12:08] LABS: Glucose,Whole Blood 84 mg/dL (75-99)
--- NOTE | 2016-10-12 12:36 | P.DS ---
Providers Date of admission: 10/09/16 11:35 Expected date of discharge: 10/11/16 Attending physician: Bhavik Tompkins Consults: 10/09/16 11:35 Consult Physician Urgent Consulting Provider: Rosalio Duarte Consult Reason/Comments: wound Do you want consulting provider notified?: Yes Consult Physician Urgent Consulting Provider: Heaven Ayala Consult Reason/Comments: arf,KyperK Do you want consulting provider notified?: Yes 10/09/16 18:45 Consult Physician Routine Consulting Provider: Freddy Barrera Consult Reason/Comments: a fib rvr Do you want consulting provider notified?: Yes Primary care physician: John Taylor - Discharge Diagnosis(es) (1) ARF (acute renal failure) RIRI inhibitor Bactrim DS stopped patient's BUN and creatinine began to normalize BUN is 35 creatinine is 1.0 today Patient never stopped making urine Current Visit: Yes Status: Acute (2) Atrial fibrillation with RVR Patient was started on Cardizem 120 mg ER, as well as dig her rate normalized still in A. fib at the rate normal Current Visit: Yes Status: Acute Patient Condition at Discharge: Fair Plan - Discharge Summary New Discharge Prescriptions: No Action Montelukast Sodium [Singulair] 10 mg PO HS Potassium Chloride ER [K-Dur 20] 20 meq PO DAILY Insulin Aspart Protam & Aspart [NovoLOG MIX 70-30 Flexpen] 25 unit SQ DAILY Insulin Aspart Protam & Aspart [NovoLOG MIX 70-30 Flexpen] 15 unit SQ HS Budesonide/Formoterol Fumarate [Symbicort 160-4.5 Mcg Inhaler] 2 puff INHALATION RT-BID Lisinopril [Zestril] 5 mg PO DAILY tab Metoprolol Tartrate [Lopressor] 25 mg PO BID tab Sertraline [Zoloft] 100 mg PO DAILY tab traMADol HCL [Ultram] 50 mg PO Q6HR PRN PRN Reason: Pain Rivaroxaban [Xarelto] 20 mg PO HS Acetaminophen [Tylenol] 650 mg PO Q4H PRN PRN Reason: Pain Tiotropium 18 Mcg/Puff [Spiriva] 1 puff INHALATION RT-DAILY Multivitamins, Thera [Multivitamin (formulary)] 1 tab PO DAILY Milk Of Magnesia 1200mg/15ml 2,400 mg PO Q72H PRN PRN Reason: Constipation Guaifenesin/Pseudoephedrne HCl [Mucinex D ER Tablet] 1 tab PO BID Lidocaine 2% Gel [Xylocaine Jelly 2%] 1 applic TOPICAL DAILY Atorvastatin [Lipitor] 10 mg PO HS clonazePAM [KlonoPIN] 0.5 mg PO DAILY PRN PRN Reason: Anxiety clonazePAM [KlonoPIN] 0.5 mg PO HS Folic Acid 1 mg PO DAILY Furosemide [Lasix] 40 mg PO BID Ferrous Sulfate [Feosol] 325 mg PO DAILY Famotidine [Pepcid] 20 mg PO HS Ipratropium-Albuterol Nebulize [Duoneb 0.5 mg-3 mg/3 ml Soln] 3 ml INHALATION RT-Q6H Sulfamethoxazole/Trimethoprim [Bactrim SS 400-80 mg] 1 tab PO BID hydrOXYzine PAMOATE [Vistaril] 25 mg PO Q6HR PRN PRN Reason: Pain Discharge Medication List Montelukast Sodium [Singulair] 10 mg PO HS 10/10/15 [History] Potassium Chloride ER [K-Dur 20] 20 meq PO DAILY 03/04/16 [History] Budesonide/Formoterol Fumarate [Symbicort 160-4.5 Mcg Inhaler] 2 puff INHALATION RT-BID 05/13/16 [History] Insulin Aspart Protam & Aspart [NovoLOG MIX 70-30 Flexpen] 15 unit SQ HS [History] Insulin Aspart Protam & Aspart [NovoLOG MIX 70-30 Flexpen] 25 unit SQ DAILY [History] Lisinopril [Zestril] 5 mg PO DAILY tab 05/16/16 [Rx] Metoprolol Tartrate [Lopressor] 25 mg PO BID tab 05/16/16 [Rx] Sertraline [Zoloft] 100 mg PO DAILY tab 05/16/16 [Rx] Acetaminophen [Tylenol] 650 mg PO Q4H PRN 10/09/16 [History] Atorvastatin [Lipitor] 10 mg PO HS 10/09/16 [History] Famotidine [Pepcid] 20 mg PO HS 10/09/16 [History] Ferrous Sulfate [Feosol] 325 mg PO DAILY 10/09/16 [History] Folic Acid 1 mg PO DAILY 10/09/16 [History] Furosemide [Lasix] 40 mg PO BID 10/09/16 [History] Guaifenesin/Pseudoephedrne HCl [Mucinex D ER Tablet] 1 tab PO BID 10/09/16 [ History] Ipratropium-Albuterol Nebulize [Duoneb 0.5 mg-3 mg/3 ml Soln] 3 ml INHALATION RT -Q6H 10/09/16 [History] Lidocaine 2% Gel [Xylocaine Jelly 2%] 1 applic TOPICAL DAILY 10/09/16 [History] Milk Of Magnesia 1200mg/15ml 2,400 mg PO Q72H PRN 10/09/16 [History] Multivitamins, Thera [Multivitamin (formulary)] 1 tab PO DAILY 10/09/16 [History ] Rivaroxaban [Xarelto] 20 mg PO HS 10/09/16 [History] Sulfamethoxazole/Trimethoprim [Bactrim SS 400-80 mg] 1 tab PO BID 10/09/16 [ History] Tiotropium 18 Mcg/Puff [Spiriva] 1 puff INHALATION RT-DAILY 10/09/16 [History] clonazePAM [KlonoPIN] 0.5 mg PO DAILY PRN 10/09/16 [History] clonazePAM [KlonoPIN] 0.5 mg PO HS 10/09/16 [History] hydrOXYzine PAMOATE [Vistaril] 25 mg PO Q6HR PRN 10/09/16 [History] traMADol HCL [Ultram] 50 mg PO Q6HR PRN 10/09/16 [History] Follow up Appointment(s)/Referral(s): John Taylor MD [Primary Care Provider] - 1-2 days
[2016-10-12] MEDS: traMADol 50 MG TAB PO PRN (13:15)
--- NOTE | 2016-10-12 14:18 | P.PN ---
Subjective Principal diagnosis: This 65-year-old female with history of COPD and emphysema, diabetes, hyperlipidemia and paroxysmal atrial fibrillation was admitted with hypotension and atrial fibrillation with rapid ventricular response. Yesterday patient was started Lanoxin 0.125 mg by mouth every 6 hours apart 2. Today her heart rate is better controlled. We'll continue Lanoxin 0.125 mg on daily basis. We'll obtain a digoxin level within next 48 hours. Her lab work today showed a creatinine of 1 be enough 35. Potassium is 4.8. Otherwise patient is clinically stable. Patient is clinically stable with heart rate better controlled Objective - Vital Signs Vital signs: Vital Signs Temp 97.7 F 10/12/16 07:44 Pulse 76 10/12/16 12:01 Resp 18 10/12/16 07:44 BP 144/59 10/12/16 07:44 Pulse Ox 94 L 10/12/16 07:44 Intake & Output 10/11/16 10/12/16 10/12/16 18:59 06:59 18:59 Intake Total 450 100 Output Total 1 Balance 449 100 Weight 105.5 kg Intake: IV 450 Sodium Chloride 0.9% 1, 400 000 ml @ 50 mls/hr IV . Q20H [facility] Rx#:[id number] ceFAZolin 1,000 mg In 50 Dextrose/Water 1 50ml.bag @ 100 mls/hr IVPB Q12H [facility] Rx#:[id number] Oral 100 Output: Urine/Stool Mix 1 Other: Voiding Method Bedside Commode Bedside Commode Bedside Commode # Voids 2 - Exam GENERAL EXAM: Patient is alert and oriented and doesn't appear to be in any acute distress. Patient is sleepy HEENT: Normocephalic. Normal reaction of pupils, equal size, normal range of extraocular motion. No erythema or exudates in the throat. NECK: No masses, no nuchal rigidity. CHEST: No chest wall deformity. LUNGS: Equal air entry with no crackles or wheeze. HEART: S1 and S2 normal with no audible mumurs or gallops. Regular rhythm, femorals equal on both sides.. ABDOMEN: No hepatosplenomegaly, normal bowel sounds, no guarding or rigidity. SKIN: No rashes CENTRAL NERVOUS SYSTEM: No focal deficits. EXTREMITIES: No cyanosis, clubbing or edema. - Labs CBC & Chem 7: 10/09/16 09:57 10/12/16 05:33 Labs: Abnormal Lab Results - Last 24 Hours (Table) 10/11/16 10/11/16 10/11/16 Range/Units 16:15 20:41 23:28 Sodium (137-145) mmol/L Carbon Dioxide (22-30) mmol/L BUN (7-17) mg/dL Glucose (74-99) mg/dL POC Glucose (mg/dL) 153 H 165 H 139 H (75-99) mg/dL 10/12/16 10/12/16 10/12/16 Range/Units 05:33 05:52 11:30 Sodium 133 L (137-145) mmol/L Carbon Dioxide 21 L (22-30) mmol/L BUN 35 H (7-17) mg/dL Glucose 137 H (74-99) mg/dL POC Glucose (mg/dL) 154 H 60 L (75-99) mg/dL Microbiology - Last 24 Hours (Table) 10/09/16 09:53 Blood Culture Gram Stain - Final Blood Blood Culture - Final Staphylococcus epidermidis 10/09/16 20:27 Urine Culture - Final Urine,Voided Assessment and Plan (1) ARF (acute renal failure) Status: Acute (2) Atrial fibrillation with RVR Status: Acute (3) COPD (chronic obstructive pulmonary disease) with acute bronchitis Status: Acute (4) Congestive heart failure Status: Acute Plan: Patient's overall clinical status stable. Heart rate is better controlled. We' ll continue Lanoxin with rest of the medications. Should obtain a Lanoxin level within next 2-3 days.
[2016-10-12 17:38] LABS: Glucose,Whole Blood 101 mg/dL (75-99)
[2016-10-12] MEDS ORDERED: IPRATROPIUM-ALBUTEROL 3 ML NEB INHALATION PRN (18:50)
[2016-10-12 20:48] LABS: Glucose,Whole Blood 97 mg/dL (75-99)
[2016-10-12] MEDS: RIVAROXABAN 15 MG TAB PO SCH (22:04)
[2016-10-12] MEDS: MONTELUKAST 10 MG TAB PO SCH (22:04)
[2016-10-12] MEDS: FAMOTIDINE 20 MG TAB PO SCH (22:04)
[2016-10-12] MEDS: clonazePAM 0.5 MG TAB PO SCH (22:04)
[2016-10-12] MEDS: ATORVASTATIN 10 MG TAB PO SCH (22:04)
[2016-10-13 05:52] LABS: Glucose,Whole Blood 105 mg/dL (75-99)
[2016-10-13 07:08] LABS: Anion Gap 7 mmol/L; Blood Urea Nitrogen 24 mg/dL (7-17); Calcium 9.6 mg/dL (8.4-10.2); Carbon Dioxide 24 mmol/L (22-30); Chloride 104 mmol/L (98-107); Glucose 90 mg/dL (74-99); Non-African American GFR(MDRD) >60 (>60 ml/min/1.73 sqM); Potassium 4.7 mmol/L (3.5-5.1); Sodium 135 mmol/L (137-145)
[2016-10-13] MEDS: MULTIVITAMINS, THERA 1 EACH TAB PO SCH (08:34)
[2016-10-13] MEDS: DIGOXIN 125 MCG TAB PO SCH (08:34)
[2016-10-13] MEDS: DILTIAZEM CD 120 MG CAP.ER.24H PO SCH (08:34)
[2016-10-13] MEDS: FOLIC ACID 1 MG TAB PO SCH (08:34)
[2016-10-13] MEDS: METOPROLOL TARTRATE 25 MG TAB PO SCH ×2 (08:34→21:50)
[2016-10-13] MEDS: guaiFENesin 600 MG TABLET.ER PO SCH ×2 (08:34→21:49)
[2016-10-13] MEDS: SERTRALINE 100 MG TAB PO SCH (08:34)
[2016-10-13] MEDS: FERROUS SULFATE 325 MG TAB PO SCH (08:34)
[2016-10-13] MEDS: ceFAZolin 1,000 MG in DEXTROSE/WATER 1 50ML.BAG IVPB SCH (08:35)
[2016-10-13] MEDS: IPRATROPIUM-ALBUTEROL 3 ML NEB INHALATION SCH ×3 (08:36→18:47)
[2016-10-13] MEDS: SYMBICORT 160-4.5 MCG INHALER INHALATION SCH ×2 (08:42→19:02)
[2016-10-13] MEDS: INSULN ASP PRT/INSULIN ASPART 100 UNIT/ML 10 ML VIAL SQ SCH ×2 (08:53→21:34)
[2016-10-13 11:58] LABS: Glucose,Whole Blood 99 mg/dL (75-99)
[2016-10-13] MEDS: LIDOCAINE 2% GEL 30 ML TUBE TOPICAL SCH (12:07)
--- NOTE | 2016-10-13 15:08 | P.PN ---
Subjective This is a 65-year-old female with known history of COPD and emphysema , diabetes, hyperlipidemia, morbid obesity, paroxysmal atrial fibrillation, who apparently was at the clinic yesterday and became quite hypotensive. Patient's heart rate was also noted to be up in the 120s to 130s. For this reason she was admitted to the hospital for further evaluation. Blood pressure on admission 84/40 with a heart rate in the 120s. Blood pressure this morning 100/ 50, heart rate 120, temperature 97.6, 99% on 2 L of oxygen. EKG shows a sinus tachycardia with nonspecific ST-T wave changes. On admission laboratory values showed WBC 7.3, hemoglobin 11.7, platelet count 351. Potassium 5.8, BUN 59 and creatinine 2.6. Troponins are negative 3. Chest x-ray reveals patchy density in the right medial lung base which may reflect chronic inflammatory change. At the time of my examination this morning, patient denies any shortness of breath, dizziness, or chest discomfort. She is also oriented to person but not place and time. She's had an improvement in her renal function with a BUN 44 and creatinine 1.42 and her potassium is 4.6. Blood pressure remains low in the mid 80s systolic. Heart rate remains poorly controlled in the 120s, appears to be in atrial flutter. 10/13/2016, patient seen and examined this morning, confused. Continues to be in atrial fibrillation, heart rate in the low 100s high 90s. Objective - Vital Signs Vital signs: Vital Signs Temp 97.9 F 10/13/16 11:32 Pulse 88 10/13/16 11:32 Resp 18 10/13/16 11:32 BP 120/63 10/13/16 11:32 Pulse Ox 94 L 10/13/16 11:32 Intake & Output 10/12/16 10/13/16 10/13/16 18:59 06:59 18:59 Intake Total 100 50 60 Output Total 800 850 Balance -700 -800 60 Weight 104.5 kg Intake: Intake, IV Titration 50 Amount ceFAZolin 1,000 mg In 50 Dextrose/Water 1 50ml.bag @ 100 mls/hr IVPB Q12H [facility] Rx#:[id number] Oral 100 60 Output: Urine 800 850 Other: Voiding Method Bedside Commode Bedpan - Exam PHYSICAL EXAMINATION: HEENT: Head is atraumatic, normocephalic. Pupils equal, round. Neck is supple. There is no elevated jugular venous pressure. HEART EXAMINATION: Heart sounds regular, S1 and S2 normal. No murmur or gallop heard. CHEST EXAMINATION: Lungs reveal diminished air entry bilateral bases. No chest wall tenderness is noted on palpation or with deep breathing. ABDOMEN: Soft, obese, extensive herniation with large pannus, nontender. Bowel sounds are heard. No organomegaly noted. EXTREMITIES: 1+ peripheral pulses with no evidence of peripheral edema and no calf tenderness noted. NEUROLOGIC patient is awake, alert and oriented to person. . - Labs CBC & Chem 7: 10/09/16 09:57 10/13/16 06:18 Labs: Abnormal Lab Results - Last 24 Hours (Table) 10/12/16 10/13/16 10/13/16 Range/Units 17:18 05:50 06:18 Sodium 135 L (137-145) mmol/L BUN 24 H (7-17) mg/dL POC Glucose (mg/dL) 101 H 105 H (75-99) mg/dL Assessment and Plan Plan: Assessment and plan #1 hypotension #2 sinus tachycardia, patient does have history of paroxysmal atrial fibrillation. On Xarelto for anticoagulation. #3 acute renal failure #4 history of COPD and emphysema #5 diabetes #6 morbid obesity #7 sleep apnea #8 mental status changes #9 asthma Plan Cardiology's perspective, we'll continue the patient on her current medications. We will follow her along with you now on an as-needed basis only, please don't hesitate to call with any questions. DNP note has been reviewed, I agree with a documented findings and plan of care. Patient was seen and examined.
[2016-10-13 16:28] LABS: Glucose,Whole Blood 91 mg/dL (75-99)
--- NOTE | 2016-10-13 16:59 | P.PN ---
Subjective Principal diagnosis: Acute renal injury, A. fib with RVR Patient is 65-year-old female known to our practice creatinine May was near 1 and today it was normalized 1.0 Patient has an abdominal wound that was seen at the wound center , she was sent to the emergency room because of tachycardia and hypotension today her blood pressure is 144/59 her heart rate is 87. She was sent to the ER found to be in A. fib with RVR systolic pressure in the 90s heart rate was 120 . She was restarted on Cardizem 120 CD her heart rate this morning was 64, blood pressure was 86/53 potassium was normal 4.8 . BUN was 35 creatinine was 1.0, a significant improvement from her admission. At this time would anticipate returning patient to nursing care facility tomorrow Objective - Vital Signs Vital signs: Vital Signs Temp 97.7 F 10/12/16 07:44 Pulse 76 10/12/16 12:01 Resp 18 10/12/16 07:44 BP 144/59 10/12/16 07:44 Pulse Ox 94 L 10/12/16 07:44 Intake & Output 10/11/16 10/12/16 10/12/16 18:59 06:59 18:59 Intake Total 450 Output Total 1 Balance 449 Weight 105.5 kg Intake: IV 450 Sodium Chloride 0.9% 1, 400 000 ml @ 50 mls/hr IV . Q20H [facility] Rx#:[id number] ceFAZolin 1,000 mg In 50 Dextrose/Water 1 50ml.bag @ 100 mls/hr IVPB Q12H [facility] Rx#:[id number] Output: Urine/Stool Mix 1 Other: Voiding Method Bedside Commode Bedside Commode Bedside Commode # Voids 2 - Exam General: [Patient awake, alert and oriented times 3. Patient in no acute distress.] HEENT: [PERRL. EOMI. No pharyngeal erythema or exudate.] Neck: [No adenopathy.] Cardiac: [Heart regular in rate and rhythm. No S3. No S4. No clicks, rubs. No murmur.] Lungs: [Clear to auscultation bilaterally.] Abdomen: [No mass. No organomegaly. Bowel sounds presnt and normoactive in all 4 quadrants.] Large abdominal pannus with abdominal wound Extremes: [No edema no cyanosis no claudication normal pulses] : [] Musculoskeletal: [No joint erythema, edema or tenderness.] Skin: [No rash.] Neurologic: [No lateralizing deficits. CN II - XII grossly intact.] Lymphatic: [No adenopathy.] - Labs CBC & Chem 7: 10/09/16 09:57 10/12/16 05:33 Labs: Abnormal Lab Results - Last 24 Hours (Table) 10/11/16 10/11/16 10/11/16 Range/Units 16:15 20:41 23:28 Sodium (137-145) mmol/L Carbon Dioxide (22-30) mmol/L BUN (7-17) mg/dL Glucose (74-99) mg/dL POC Glucose (mg/dL) 153 H 165 H 139 H (75-99) mg/dL 10/12/16 10/12/16 10/12/16 Range/Units 05:33 05:52 11:30 Sodium 133 L (137-145) mmol/L Carbon Dioxide 21 L (22-30) mmol/L BUN 35 H (7-17) mg/dL Glucose 137 H (74-99) mg/dL POC Glucose (mg/dL) 154 H 60 L (75-99) mg/dL Microbiology - Last 24 Hours (Table) 10/09/16 09:53 Blood Culture Gram Stain - Final Blood Blood Culture - Final Staphylococcus epidermidis 10/09/16 20:27 Urine Culture - Final Urine,Voided Assessment and Plan (1) ARF (acute renal failure) Narrative/Plan: Acute on chronic renal failure consult nephrology patient currently making urine Today BUN and creatinine are significantly improved Status: Acute (2) Atrial fibrillation with RVR Narrative/Plan: A. fib with RPR started Cardizem 120 mg CD consult cardiology Heart rate is 64 Status: Acute Plan: Bactrim and Dante for DC'd Anticipate discharge home tomorrow
--- NOTE | 2016-10-13 18:38 | P.PN ---
Subjective Principal diagnosis: Abdominal ulcer 65-year-old female with a long-standing history of obesity, asthma COPD and coronary artery disease with persistent atrial fibrillation presented to the [facility] wound healing center today. At that time she was on evidence of hypotension and tachycardia. She was sent to the emergency center and has cut subsequently been admitted for further evaluation of her atrial fibrillation and hypotension. The patient relates she's been having difficulty with abdominal wound for several weeks. Despite some local care the ulcer was not healing and consequently was referred to the wound center for further intervention. She relates a site is uncomfortable. She is denying a large amount of pain. Denies fevers chills or rigors. She has significant weakness. It is noted that recently she was admitted. She had been an extended care and signed out AMA and was walking around her neighborhood without shoes. I believe it was winter time. She's now been an extended care for ongoing interventions. Is feeling somewhat better today. She denying interim new difficulties. Has been evaluated by nephrology. They agree with the discontinuation of the Bactrim. No new complaints. Objective - Vital Signs Vital signs: Vital Signs Temp 97.2 F L 10/13/16 15:38 Pulse 66 10/13/16 15:38 Resp 18 10/13/16 15:38 BP 116/73 10/13/16 15:38 Pulse Ox 94 L 10/13/16 15:38 Intake & Output 10/12/16 10/13/16 10/13/16 18:59 06:59 18:59 Intake Total 100 50 110 Output Total 800 850 Balance -700 -800 110 Weight 104.5 kg Intake: Intake, IV Titration 50 50 Amount ceFAZolin 1,000 mg In 50 50 Dextrose/Water 1 50ml.bag @ 100 mls/hr IVPB Q12H [facility] Rx#:[id number] Oral 100 60 Output: Urine 800 850 Other: Voiding Method Bedside Commode Bedpan - Exam Obese 65-year-old woman who is comfortable at this time HEENT: Anicteric conjunctiva are pink and moist nasal mucosa grossly intact without significant lesions, there is no thrush. Neck: The neck is supple without significant lymphadenopathy or thyromegaly. Lungs: Good bilateral air entry without significant crackles or wheezing. There is no significant bronchial sounds. There is no egophony or dullness. Heart: Regular rate and rhythm with an audible S1-S2, no S3 no S4. There is no significant murmur click or rub, PMI was nondisplaced. Abdomen: Positive bowel sounds soft has an extensive herniation with large pannus. There is evidence of ulceration abdominal wall measuring at 2 x 2 x 0.2 with underlying erythema and some drainage Extremities: The upper extremities have excellent pulses they are symmetric, no significant petechiae or telangiectasia. No splinter hemorrhages were noted. Lower extremities have bilateral edema no open ulcerations are seen Neuro: Awake alert oriented to person place and time. There are no acute new gross focal sensory motor deficits. - Labs CBC & Chem 7: 10/09/16 09:57 10/13/16 06:18 Labs: Abnormal Lab Results - Last 24 Hours (Table) 10/13/16 10/13/16 Range/Units 05:50 06:18 Sodium 135 L (137-145) mmol/L BUN 24 H (7-17) mg/dL POC Glucose (mg/dL) 105 H (75-99) mg/dL Laboratory Results WBC 7.3 k/uL (3.8-10.6) 10/09/16 09:57 RBC 4.27 m/uL (3.80-5.40) 10/09/16 09:57 Hgb 11.7 gm/dL (11.4-16.0) 10/09/16 09:57 Hct 36.4 % (34.0-46.0) 10/09/16 09:57 MCV 85.4 fL (80.0-100.0) 10/09/16 09:57 MCH 27.4 pg (25.0-35.0) 10/09/16 09:57 MCHC 32.0 g/dL (31.0-37.0) 10/09/16 09:57 RDW 16.0 % (11.5-15.5) H 10/09/16 09:57 Plt Count 351 k/uL (150-450) 10/09/16 09:57 Neutrophils % (Manual) 66.0 % 10/09/16 09:57 Lymphocytes % (Manual) 17.0 % 10/09/16 09:57 Monocytes % (Manual) 10.0 % 10/09/16 09:57 Eosinophils % (Manual) 7.0 % 10/09/16 09:57 Neutrophils # (Manual) 4.8 k/uL (1.3-7.7) 10/09/16 09:57 Lymphocytes # (Manual) 1.2 k/uL (1.0-4.8) 10/09/16 09:57 Monocytes # (Manual) 0.7 k/uL (0-1.0) 10/09/16 09:57 Eosinophils # (Manual) 0.5 k/uL (0-0.7) 10/09/16 09:57 Nucleated RBCs 0 /100 WBC (0-0) 10/09/16 09:57 Hypochromasia Slight 10/09/16 09:57 Poikilocytosis (manual Present 10/09/16 09:57 Anisocytosis Slight 10/09/16 09:57 PT 12.0 sec (9.0-12.0) 10/09/16 09:57 INR 1.2 (<1.2) H 10/09/16 09:57 APTT 26.4 sec (22.0-30.0) 10/09/16 09:57 Sodium 135 mmol/L (137-145) L 10/13/16 06:18 Potassium 4.7 mmol/L (3.5-5.1) 10/13/16 06:18 Chloride 104 mmol/L (98-107) 10/13/16 06:18 Carbon Dioxide 24 mmol/L (22-30) 10/13/16 06:18 Anion Gap 7 mmol/L 10/13/16 06:18 BUN 24 mg/dL (7-17) H 10/13/16 06:18 Creatinine 0.82 mg/dL (0.52-1.04) 10/13/16 06:18 Est GFR (MDRD) Af Amer >60 (>60 ml/min/1.73 sqM) 10/13/16 06:18 Est GFR (MDRD) Non-Af >60 (>60 ml/min/1.73 sqM) 10/13/16 06:18 Glucose 90 mg/dL (74-99) 10/13/16 06:18 POC Glucose (mg/dL) 91 mg/dL (75-99) 10/13/16 16:25 POC Glu [employer] Machine [employer] AIDEN LauraIsaiw 10/13/16 16:25 Plasma Lactic Acid Russ 1.2 mmol/L (0.7-2.0) 10/09/16 09:57 Calcium 9.6 mg/dL (8.4-10.2) 10/13/16 06:18 Phosphorus 4.3 mg/dL (2.5-4.5) 10/09/16 09:57 Magnesium 2.0 mg/dL (1.6-2.3) 10/09/16 09:57 Total Bilirubin 0.5 mg/dL (0.2-1.3) 10/09/16 09:57 AST 29 U/L (14-36) 10/09/16 09:57 ALT 34 U/L (9-52) 10/09/16 09:57 Alkaline Phosphatase 139 U/L (38-126) H 10/09/16 09:57 Total Creatine Kinase <20 U/L (30-135) L 10/09/16 21:20 CK-MB (CK-2) <0.2 ng/mL (0.0-2.4) 10/09/16 21:20 CK-MB (CK-2) Rel Index 10/09/16 21:20 Troponin I <0.012 ng/mL (0.000-0.034) 10/09/16 21:20 Total Protein 5.9 g/dL (6.3-8.2) L 10/09/16 09:57 Albumin 3.0 g/dL (3.5-5.0) L 10/09/16 09:57 Triglycerides 120 mg/dL (<150) 10/09/16 09:57 Cholesterol 114 mg/dL (<200) 10/09/16 09:57 LDL Cholesterol, Calc 69 mg/dL (0-99) 10/09/16 09:57 HDL Cholesterol 21 mg/dL (40-60) L 10/09/16 09:57 TSH 2.070 mIU/L (0.465-4.680) 10/09/16 09:57 Urine Color Yellow 10/09/16 Unknown Urine Appearance Cloudy (Clear) H 10/09/16 Unknown Urine pH 5.5 (5.0-8.0) 10/09/16 Unknown Ur Specific [place] 1.010 (1.001-1.035) 10/09/16 Unknown Urine Protein Negative (Negative) 10/09/16 Unknown Urine Glucose (UA) Negative (Negative) 10/09/16 Unknown Urine Ketones Negative (Negative) 10/09/16 Unknown Urine Blood Negative (Negative) 10/09/16 Unknown Urine Nitrite Negative (Negative) 10/09/16 Unknown Urine Bilirubin Negative (Negative) 10/09/16 Unknown Urine Urobilinogen <2.0 mg/dL (<2.0) 10/09/16 Unknown Ur Leukocyte Esterase Large (Negative) H 10/09/16 Unknown Urine RBC 1 /hpf (0-5) 10/09/16 Unknown Urine WBC 20 /hpf (0-5) H 10/09/16 Unknown Urine WBC Clumps Rare /hpf (None) H 10/09/16 12:29 Ur Squamous Epith Cells 2 /hpf (0-4) 10/09/16 Unknown Hyaline Casts 3 /lpf (0-2) H 10/09/16 Unknown Urine Mucus Rare /hpf (None) H 10/09/16 12:29 Microbiology 10/09/16 09:53 Blood Blood Culture Gram Stain - Final 10/09/16 09:53 Blood Blood Culture - Final Staphylococcus epidermidis 10/09/16 20:27 Urine,Voided Urine Culture - Final 10/09/16 12:29 Urine,Voided Urine Culture - Final 10/09/16 09:57 Blood Blood Culture - Final Assessment and Plan (1) Skin ulcer of abdominal wall with fat layer exposed Narrative/Plan: 65-year-old female who presents to Hospital for evaluation the wound center. However presentation she was found evidence of hypotension and tachycardia and was referred to the emergency center. She subsequently has been admitted for evaluation of her atrial fibrillation and hypotension. She has evidence of the abdominal wall ulceration with the fat layer exposed. She does have a recent culture that shows evidence of Proteus mirabilis and MSSA. Consequently cephazolin dosed for her acute renal failure is given. The hyperkalemia is also being treated. There is blood cultures in progress. Urinalysis is quite benign and urine culture is in progress and negative so far.. Local wound care with therahoney utilized which the patient is finding very soothing to the Abdominal wall ulceration. When stable following the wound healing Center Status: Acute
[2016-10-13 20:58] LABS: Glucose,Whole Blood 108 mg/dL (75-99)
[2016-10-13] MEDS: clonazePAM 0.5 MG TAB PO SCH (21:49)
[2016-10-13] MEDS: ATORVASTATIN 10 MG TAB PO SCH (21:50)
[2016-10-13] MEDS: FAMOTIDINE 20 MG TAB PO SCH (21:50)
[2016-10-13] MEDS: RIVAROXABAN 15 MG TAB PO SCH (21:50)
[2016-10-13] MEDS: MONTELUKAST 10 MG TAB PO SCH (21:50)
[2016-10-13] MEDS: CEPHALEXIN 500 MG CAP PO SCH (22:42)
[2016-10-13] MEDS: traMADol 50 MG TAB PO PRN (22:58)
[2016-10-14] MEDS: SYMBICORT 160-4.5 MCG INHALER INHALATION SCH (07:35)
[2016-10-14] MEDS: IPRATROPIUM-ALBUTEROL 3 ML NEB INHALATION SCH ×2 (07:35→13:34)
[2016-10-14 07:45] LABS: Glucose,Whole Blood 102 mg/dL (75-99)
[2016-10-14] MEDS: INSULN ASP PRT/INSULIN ASPART 100 UNIT/ML 10 ML VIAL SQ SCH (08:02)
[2016-10-14 08:05] LABS: Anion Gap 6 mmol/L; Blood Urea Nitrogen 19 mg/dL (7-17); Calcium 9.6 mg/dL (8.4-10.2); Carbon Dioxide 23 mmol/L (22-30); Chloride 106 mmol/L (98-107); Glucose 97 mg/dL (74-99); Non-African American GFR(MDRD) >60 (>60 ml/min/1.73 sqM); Potassium 4.6 mmol/L (3.5-5.1); Sodium 135 mmol/L (137-145)
[2016-10-14 08:41] VITALS: BP 124/72; PULSE 77; TEMP 98.7
[2016-10-14] MEDS: CEPHALEXIN 500 MG CAP PO SCH ×2 (08:55→15:44)
[2016-10-14] MEDS: DIGOXIN 125 MCG TAB PO SCH (08:55)
[2016-10-14] MEDS: DILTIAZEM CD 120 MG CAP.ER.24H PO SCH (08:55)
[2016-10-14] MEDS: FERROUS SULFATE 325 MG TAB PO SCH (08:55)
[2016-10-14] MEDS: guaiFENesin 600 MG TABLET.ER PO SCH (08:56)
[2016-10-14] MEDS: FOLIC ACID 1 MG TAB PO SCH (08:56)
[2016-10-14] MEDS: SERTRALINE 100 MG TAB PO SCH (08:57)
[2016-10-14] MEDS: METOPROLOL TARTRATE 25 MG TAB PO SCH (08:57)
[2016-10-14] MEDS: MULTIVITAMINS, THERA 1 EACH TAB PO SCH (08:57)
[2016-10-14] MEDS: LIDOCAINE 2% GEL 30 ML TUBE TOPICAL SCH (09:01)
[2016-10-14 09:05] VITALS: BMI 51.0
[2016-10-14 11:04] LABS: Glucose,Whole Blood 54 mg/dL (75-99)
[2016-10-14 11:25] LABS: Glucose,Whole Blood 59 mg/dL (75-99)
[2016-10-14 11:36] LABS: Glucose,Whole Blood 77 mg/dL (75-99)
--- NOTE | 2016-10-14 14:45 | CDI ---
In responding to this query, please exercise your independent professional judgment. The [facility] Coding Staff and Clinical Documentation Specialists appreciate your assistance in clarifying documentation, maintaining compliance with coding guidelines, accurately documenting patients condition and capturing severity of illness. The fact that a question is asked does not imply that any particular answer is desired or expected. Communication forms are a method of clarifying documentation and are not made part of the Legal Health Record. Thank you in advance for your clarification. Last Revision, May 2016 Mi Quint[address] [place] [address] Documentation Clarification Form Date: 10/14/2016 2:29:00 PM From: Elisa Carey RN, CCDS Admit Date: 10/09/2016 11:35:00 AM Patient Name: Eleni Moses Visit Number: [id number] Dr. Freddy Barrera/ Mariam Todd DNP CHF is documented in the 10/12 Cardiology Progress Note. History/Risk Factors: ARF, AF rvr Clinical Indicators: VS/Pulse OX: Temp 97.4, HR 122, RR 20, B/P 84/48, spo2 100% 3L NC 10/10 Echocardiogram Results: Ef 50-55%, mild mitral/tricuspid/pulmonary regurg. Moderate concentric LVH Chest X Ray: Patchy density right medial lung base may reflect chronic inflammatory. Underlying infiltrate difficult to exclude." Treatment: Consults: Cardiology, Nephro Lasix 40 mg PO BID In your professional opinion, can you please clarify the acuity and type of CHF if known? Systolic Heart Failure: Acute Chronic Acute on Chronic Diastolic Heart Failure: Acute Chronic Acute on Chronic Systolic & Diastolic Heart Failure: Acute Chronic Acute on Chronic Unable to determine Other, please specify Please document in your progress notes and discharge summary in order to capture severity of illness and risk of mortality. Include clinical findings that support your diagnosis. FYI: Press F11 to launch patient chart. AYAD
--- NOTE | 2016-10-14 15:04 | CDI ---
In responding to this query, please exercise your independent professional judgment. The [facility] Coding Staff and Clinical Documentation Specialists appreciate your assistance in clarifying documentation, maintaining compliance with coding guidelines, accurately documenting patients condition and capturing severity of illness. The fact that a question is asked does not imply that any particular answer is desired or expected. Communication forms are a method of clarifying documentation and are not made part of the Legal Health Record. Thank you in advance for your clarification. Last Revision, January 2015 Mi Quintanilla [address] [facility] [place] [address] Documentation Clarification Form Date: 10/14/2016 2:45:00 PM From: Elisa Carey RN, CCDS Admit Date: 10/09/2016 11:35:00 AM Patient Name: Eleni Moses Visit Number: [id number] Dr. Ayala History/Risk Factors: 10/12 Attending: "Acute on chronic renal failure consult nephrology patient currently making urine Today BUN and creatinine are significantly improved." Clinical Indicators Current BUN: 59/44/35/24 CR: 2.66/1.42/1/.82 GFR: 18/37/55/>60 // Patients Baseline: BUN/CR/GFR: 44/ 1.4/18 Treatment: Patients medications include: IVF: Ivf Bolus, Ivf In order to capture the severity of condition, please clarify if the condition signifies: CKD Stage 1 (GFR > 90) CKD Stage 2 (GFR 60-89) CKD Stage 3 (GFR 30-59) CKD Stage 4 (GFR 15-29) CKD Stage 5 (GFR <15) ESRD Unable to determine Other condition, please specify Please document in your progress notes and discharge summary in order to capture severity of illness and risk of mortality. Include clinical findings that support your diagnosis. FYI: Press F11 to launch patient chart. AYAD
[2016-10-14] MEDS: MORPHINE SULFATE 4 MG/ML SYRINGE IVP PRN (15:44)
[2016-10-14 17:27] LABS: Glucose,Whole Blood 95 mg/dL (75-99)
[2016-10-14] MEDS ORDERED: RIVAROXABAN 10 MG TAB PO SCH (21:00)
--- NOTE | 2016-10-17 10:34 | CDI ---
In responding to this query, please exercise your independent professional judgment. The [facility] Coding Staff and Clinical Documentation Specialists appreciate your assistance in clarifying documentation, maintaining compliance with coding guidelines, accurately documenting patients condition and capturing severity of illness. The fact that a question is asked does not imply that any particular answer is desired or expected. Communication forms are a method of clarifying documentation and are not made part of the Legal Health Record. Thank you in advance for your clarification. Last Revision, January 2015 Mivasquez Quintanilla [address] [facility] [place] [address] Documentation Clarification Form 2nd Request (signing the Query in [facility] is not a response, Please Document) Date: 10/14/2016 2:45:00 PM From: Elisa Carey RN, CCDS Admit Date: 10/09/2016 11:35:00 AM Patient Name: Eleni Moses Visit Number: [id number] Dr. Heaven Aayla History/Risk Factors and Clinical Indicators: 10/12 Attending: "Acute on chronic renal failure consult nephrology patient currently making urine Today BUN and creatinine are significantly improved." Current BUN: 59/44/35/24 CR: 2.66/1.42/1/.82 GFR:18/37/55/>60 Patients Baseline: BUN/CR/GFR: 44, cr 1.4 Treatment: Patients medications include: IVF: Ivf Bolus, Ivf In order to capture the severity of condition, please clarify if the condition signifies: CKD Stage 1 (GFR > 90) CKD Stage 2 (GFR 60-89) CKD Stage 3 (GFR 30-59) CKD Stage 4 (GFR 15-29) CKD Stage 5 (GFR <15) ESRD Unable to determine Other condition, please specify Please document in your progress notes and discharge summary in order to capture severity of illness and risk of mortality. Include clinical findings that support your diagnosis. FYI: Press F11 to launch patient chart. AYAD
--- NOTE | 2016-10-23 06:04 | PN ---
ADDENDUM An addendum to my progress note from 10/12/2016. The patient was being seen for follow up for acute kidney injury. Review of her previous labs shows serum creatinine at 0.8 to 0.7 mg/dL. Her UA has been fairly benign. At this time, I do not feel she has any underlying chronic kidney disease. AYAD
--- NOTE | 2016-10-24 12:17 | P.PN ---
Progress Note - Text This is an addendum to the progress note dictated by cardiology. Patient has diastolic congestive heart failure acute on chronic. DNP note has been reviewed, I agree with a documented findings and plan of care. Patient was seen and examined.
== END 2016-10-14 18:06 | DRG 682 ==
LOC: EC 08:50 → EEVIPCON 08:50 → 6SEL 11:35 → 5MS5E 10-13 20:02
PROVIDERS: ADMIT Family Medicine; ATTEND Family Medicine
DX: N17.9 Acute kidney failure, unspecified (principal); I50.33 Acute on chronic diastolic (congestive) heart failure; E11.22 Type 2 diabetes mellitus with diabetic chronic kidney disease; E11.622 Type 2 diabetes mellitus with other skin ulcer; I47.1 Supraventricular tachycardia; I95.9 Hypotension, unspecified; I11.0 Hypertensive heart disease with heart failure; J44.0 Chronic obstructive pulmonary disease with (acute) lower respiratory infection; I48.1 Persistent atrial fibrillation; I48.92 Unspecified atrial flutter; N39.0 Urinary tract infection, site not specified; Z99.81 Dependence on supplemental oxygen; E87.5 Hyperkalemia; E66.01 Morbid (severe) obesity due to excess calories; I25.10 Atherosclerotic heart disease of native coronary artery without angina pectoris; E86.9 Volume depletion, unspecified; J20.9 Acute bronchitis, unspecified; E78.5 Hyperlipidemia, unspecified; K46.9 Unspecified abdominal hernia without obstruction or gangrene; G47.33 Obstructive sleep apnea (adult) (pediatric); F41.1 Generalized anxiety disorder; M54.16 Radiculopathy, lumbar region; L98.492 Non-pressure chronic ulcer of skin of other sites with fat layer exposed; Z79.4 Long term (current) use of insulin; Z79.51 Long term (current) use of inhaled steroids; Z79.899 Other long term (current) drug therapy; Z79.01 Long term (current) use of anticoagulants; Z88.5 Allergy status to narcotic agent; Z91.040 Latex allergy status; Z86.11 Personal history of tuberculosis; Z98.42 Cataract extraction status, left eye; Z98.41 Cataract extraction status, right eye
CPT/HCPCS: 36415; 71020; 80048; 80053; 80061; 81001; 82550; 82553; 83605; 83735; 84100; 84443; 84484; 85025; 85610; 85730; 87040; 87077; 87086; 87186; 93005; 93306; 94640; 94760; 96361; 96374; 96375; 99285

== ENCOUNTER 2016-10-19 17:02 | Emergency (ER) | payer MEDICARE ==
[2016-10-19] MEDS ORDERED: SODIUM CHLORIDE 0.9% 500 ML IV ONE (17:23)
--- NOTE | 2016-10-19 17:32 | ED ---
Wound/Laceration HPI - General Source: EMS Mode of arrival: EMS Limitations: altered mental status, physical limitation <Ester Santos - Last Filed: 10/19/16 21:34> <Armani Tom - Last Filed: 10/21/16 17:10> - General Chief Complaint: Wound/Laceration Stated Complaint: wound Time Seen by Provider: 10/19/16 17:05 - History of Present Illness Initial Comments: 65-year-old female patient presents to the emergency department today for evaluation of a painful wound to her abdomen. Patient does seem somewhat confused and is a poor historian. Patient states that the wound has been present for "a while", is unable to give exact timeframe however patient was admitted on 10/09/2016 for hypertension, atrial fibrillation, and did have the wound at that time. Patient states that the pain and wound seems to be worsening. Staff at [facility] states that the left lower quadrant area of wound is new. 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 During her last visit wound culture was positive for proteus mirabilis and MSSA, blood cultures positive for staph epidermidis. According to [facility] med list patient does not appear to be on antibiotics at this time. Patient denies knowing that she had a fever. However fever at admission today is 101.6. Patient denies any chills, dizziness, weakness, chest pain, shortness of breath, cough, congestion, headaches, abdominal pain, nausea, vomiting, constipation, diarrhea, dysuria, hematuria, urinary frequency or urinary urgency. (Ester Santos) - Related Data Home Medications Medication Instructions Recorded Confirmed Montelukast Sodium [Singulair] 10 mg PO HS 10/10/15 10/19/16 Potassium Chloride ER [K-Dur 20] 20 meq PO DAILY 03/04/16 10/19/16 Budesonide/Formoterol Fumarate 2 puff INHALATION RT-BID 05/13/16 10/19/16 [Symbicort 160-4.5 Mcg Inhaler] Insulin Aspart Protam & Aspart 15 unit SQ HS 05/13/16 10/19/16 [NovoLOG MIX 70-30 Flexpen] Insulin Aspart Protam & Aspart 25 unit SQ DAILY 05/13/16 10/19/16 [NovoLOG MIX 70-30 Flexpen] Acetaminophen [Tylenol] 650 mg PO Q4H PRN 10/09/16 10/19/16 Atorvastatin [Lipitor] 10 mg PO HS 10/09/16 10/19/16 Famotidine [Pepcid] 20 mg PO HS 10/09/16 10/19/16 Ferrous Sulfate [Feosol] 325 mg PO HS 10/09/16 10/19/16 Folic Acid 1 mg PO DAILY 10/09/16 10/19/16 Furosemide [Lasix] 40 mg PO BID 10/09/16 10/19/16 Ipratropium-Albuterol Nebulize 3 ml INHALATION RT-Q6H 10/09/16 10/19/16 [Duoneb 0.5 mg-3 mg/3 ml Soln] Lidocaine 2% Gel [Xylocaine Jelly 1 applic TOPICAL DAILY 10/09/16 10/19/16 2%] Multivitamins, Thera [Multivitamin 1 tab PO HS 10/09/16 10/19/16 (formulary)] Rivaroxaban [Xarelto] 20 mg PO HS 10/09/16 10/19/16 Tiotropium 18 Mcg/Puff [Spiriva] 1 puff INHALATION RT-DAILY 10/09/16 10/19/16 clonazePAM [KlonoPIN] 0.5 mg PO DAILY PRN 10/09/16 10/19/16 clonazePAM [KlonoPIN] 0.5 mg PO HS 10/09/16 10/19/16 hydrOXYzine PAMOATE [Vistaril] 25 mg PO Q6HR PRN 10/09/16 10/19/16 traMADol HCL [Ultram] 50 mg PO Q6HR PRN 10/09/16 10/19/16 Magnesium Hydroxide [Milk of 2,400 mg PO Q72H PRN 10/19/16 10/19/16 Magnesia] guaiFENesin [Mucinex] 600 mg PO Q12H 10/19/16 10/19/16 Previous Rx's Medication Instructions Recorded Metoprolol Tartrate [Lopressor] 25 mg PO BID tab 05/16/16 Sertraline [Zoloft] 100 mg PO DAILY tab 05/16/16 Digoxin [Lanoxin] 125 mcg PO DAILY #30 tab 10/13/16 Diltiazem Cd [Cardizem Cd] 120 mg PO Q24HR #30 cap 10/13/16 Levofloxacin [Levaquin] 750 mg PO DAILY #10 tab 10/19/16 Allergies Allergy/AdvReac Type Severity Reaction Status Date / Time adhesive Allergy Rash/Hives Verified 10/19/16 17:07 codeine Allergy Rash/Hives Verified 10/19/16 18:00 Review of Systems ROS Other: All systems not noted in ROS Statement are negative. <Ester Santos - Last Filed: 10/19/16 21:34> ROS Other: All systems not noted in ROS Statement are negative. <Armani Tom - Last Filed: 10/21/16 17:10> ROS Statement: Those systems with pertinent positive or pertinent negative responses have been documented in the HPI. 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 Chronic atrial fibrillation, chronic restrictive and obstructive lung disease secondary to morbid obesity and underlying bronchial asthma, chronic anemia History of Any Multi-Drug Resistant Organisms: None Reported Past Surgical History: Breast Surgery, Hernia Repair Additional Past Surgical History / Comment(s): cataracts Past Anesthesia/Blood Transfusion Reactions: No Reported Reaction Past Psychological History: Anxiety Smoking Status: Never smoker Past Alcohol Use History: None Reported Past Drug Use History: None Reported - Past Family History Mother Family Medical History: CVA/TIA Father Additional Family Medical History / Comment(s): WAS INJURED [place], also had hx tb but from complications of his injuries Brother(s) Additional Family Medical History / Comment(s): at age 2 years 10months tb <Ester Santos - Last Filed: 10/19/16 21:34> General Exam Limitations: altered mental status, physical limitation General appearance: alert, in no apparent distress Eye exam: Present: normal appearance, PERRL, EOMI. Absent: scleral icterus, conjunctival injection, periorbital swelling ENT exam: Present: normal exam, mucous membranes moist Respiratory exam: Present: normal lung sounds bilaterally. Absent: respiratory distress, wheezes, rales, rhonchi, stridor Cardiovascular Exam: Present: regular rate, normal rhythm, normal heart sounds. Absent: systolic murmur, diastolic murmur, rubs, gallop, clicks GI/Abdominal exam: Present: soft, normal bowel sounds, mass (Large lower abdominal mass.), other (Large lower abdominal wound, appears to be a pressure ulcer related to large herniated mass. Wound is dry, hot to touch, surrounding erythema present.). Absent: distended, tenderness, guarding, rebound, rigid Extremities exam: Present: normal inspection, full ROM, normal capillary refill. Absent: tenderness, pedal edema, joint swelling, calf tenderness Back exam: Present: normal inspection Neurological exam: Present: alert, CN II-XII intact. Absent: oriented X3 ( Oriented 1.) Psychiatric exam: Present: normal affect, normal mood Skin exam: Present: warm, dry, intact, normal color. Absent: rash <Ester Santos - Last Filed: 10/19/16 21:34> Medical Decision Making - Lab Data Result diagrams: 10/19/16 18:18 10/19/16 18:18 - Radiology Data Radiology results: report reviewed, image reviewed <Ester Santos - Last Filed: 10/19/16 21:34> - Lab Data Result diagrams: 10/19/16 18:18 10/19/16 18:18 <Armani Tom - Last Filed: 10/21/16 17:10> - Medical Decision Making 65-year-old male patient presented for evaluation of abdominal wound and fever. Patient's temp is 101.6 upon presentation. Lab work was performed and was unremarkable. Wound cultures and blood cultures were sent. Chest x-ray and urinalysis were obtained and showed no acute infectious process. CT of the abdomen and pelvis was obtained to evaluate for any deeper infection. CT of the abdomen and pelvis did show a 26 cm by 22 centimeter mass that is chronic for the patient. Dr. Tom did speak to Dr. Tompkins who does not want patient admitted at this time. He requests that we start the patient on oral Levaquin and discharge back to [facility], he states he will see her in the office tomorrow. Did discuss Dr. Tompkins's instructions with the patient. Did instruct patient to return for any new, worsening, or concerning symptoms. Report will be called to [facility] staff. (Ester Santos) CT shows no focal drainable fluid collection. Patient was febrile, other vital signs are stable. Case is discussed with the patient's primary care physician who will evaluate the patient tomorrow. She is started on Levaquin for suspected soft tissue infection. (Armani Tom) - Lab Data Lab Results 10/19/16 10/19/16 10/19/16 Range/Units 18:18 18:18 18:18 WBC 7.5 (3.8-10.6) k/uL RBC 4.65 (3.80-5.40) m/uL Hgb 12.4 (11.4-16.0) gm/dL Hct 40.8 (34.0-46.0) % MCV 87.9 (80.0-100.0) fL MCH 26.7 (25.0-35.0) pg MCHC 30.4 L (31.0-37.0) g/dL RDW 16.9 H (11.5-15.5) % Plt Count 287 (150-450) k/uL Neutrophils % 71 % Lymphocytes % 16 % Monocytes % 5 % Eosinophils % 3 % Basophils % 1 % Neutrophils # 5.4 (1.3-7.7) k/uL Lymphocytes # 1.2 (1.0-4.8) k/uL Monocytes # 0.4 (0-1.0) k/uL Eosinophils # 0.3 (0-0.7) k/uL Basophils # 0.0 (0-0.2) k/uL Hypochromasia Slight Anisocytosis Slight Sodium 133 L (137-145) mmol/L Potassium 4.1 (3.5-5.1) mmol/L Chloride 98 (98-107) mmol/L Carbon Dioxide 26 (22-30) mmol/L Anion Gap 9 mmol/L BUN 27 H (7-17) mg/dL Creatinine 0.79 (0.52-1.04) mg/dL Est GFR (MDRD) Af Amer >60 (>60 ml/min/1.73 sqM) Est GFR (MDRD) Non-Af >60 (>60 ml/min/1.73 sqM) Glucose 114 H (74-99) mg/dL Plasma Lactic Acid Russ 1.7 (0.7-2.0) mmol/L Calcium 9.3 (8.4-10.2) mg/dL Total Bilirubin 0.6 (0.2-1.3) mg/dL AST 36 (14-36) U/L ALT 36 (9-52) U/L Alkaline Phosphatase 132 H (38-126) U/L Total Protein 5.6 L (6.3-8.2) g/dL Albumin 2.8 L (3.5-5.0) g/dL Urine Color Urine Appearance (Clear) Urine pH (5.0-8.0) Ur Specific [place] (1.001-1.035) Urine Protein (Negative) Urine Glucose (UA) (Negative) Urine Ketones (Negative) Urine Blood (Negative) Urine Nitrite (Negative) Urine Bilirubin (Negative) Urine Urobilinogen (<2.0) mg/dL Ur Leukocyte Esterase (Negative) Urine RBC (0-5) /hpf Urine WBC (0-5) /hpf Ur Squamous Epith Cells (0-4) /hpf Urine Mucus (None) /hpf 10/19/16 Range/Units 18:31 WBC (3.8-10.6) k/uL RBC (3.80-5.40) m/uL Hgb (11.4-16.0) gm/dL Hct (34.0-46.0) % MCV (80.0-100.0) fL MCH (25.0-35.0) pg MCHC (31.0-37.0) g/dL RDW (11.5-15.5) % Plt Count (150-450) k/uL Neutrophils % % Lymphocytes % % Monocytes % % Eosinophils % % Basophils % % Neutrophils # (1.3-7.7) k/uL Lymphocytes # (1.0-4.8) k/uL Monocytes # (0-1.0) k/uL Eosinophils # (0-0.7) k/uL Basophils # (0-0.2) k/uL Hypochromasia Anisocytosis Sodium (137-145) mmol/L Potassium (3.5-5.1) mmol/L Chloride (98-107) mmol/L Carbon Dioxide (22-30) mmol/L Anion Gap mmol/L BUN (7-17) mg/dL Creatinine (0.52-1.04) mg/dL Est GFR (MDRD) Af Amer (>60 ml/min/1.73 sqM) Est GFR (MDRD) Non-Af (>60 ml/min/1.73 sqM) Glucose (74-99) mg/dL Plasma Lactic Acid Russ (0.7-2.0) mmol/L Calcium (8.4-10.2) mg/dL Total Bilirubin (0.2-1.3) mg/dL AST (14-36) U/L ALT (9-52) U/L Alkaline Phosphatase (38-126) U/L Total Protein (6.3-8.2) g/dL Albumin (3.5-5.0) g/dL Urine Color Yellow Urine Appearance Clear (Clear) Urine pH 5.5 (5.0-8.0) Ur Specific [place] 1.006 (1.001-1.035) Urine Protein Negative (Negative) Urine Glucose (UA) Negative (Negative) Urine Ketones Negative (Negative) Urine Blood Negative (Negative) Urine Nitrite Negative (Negative) Urine Bilirubin Negative (Negative) Urine Urobilinogen <2.0 (<2.0) mg/dL Ur Leukocyte Esterase Small H (Negative) Urine RBC 1 (0-5) /hpf Urine WBC 1 (0-5) /hpf Ur Squamous Epith Cells <1 (0-4) /hpf Urine Mucus Rare H (None) /hpf - Radiology Data Two-view chest x-ray was obtained and showed a enlarged heart. No heart failure. No pleural effusion. Lungs appeared clear consolidation. The bony thorax is intact. Impression by Dr. Blanca shows no acute or active cardiopulmonary disease. No change from previous study. CT of the abdomen and pelvis with contrast shows lung places that are clear consolidation. Heart is enlarged. There is no pleural effusion. Liver shows no focal deficit. Gallbladder appears normal. There is no sign of a pancreatic mass. Spleen appears normal. There are bilateral renal cortical cysts. The largest measures 9 cm in the right side. There is no hydronephrosis no adrenal mass. There is no retroperitoneal adenopathy. There is no ascites. There is a large mass in the subcutaneous tissues over the lateral anterior lower abdomen. This measures 26 x 23 cm and have an average density of 22. There are surgical clips apparently from hernia surgery. Bladder distends smoothly. I see no evidence of a bowel obstruction. There is no ascites. There is no evidence of a pelvic mass. The bony structures are intact. I see no focal bone destruction. Impression by Dr. Blanca shows large bilateral renal cortical cyst. Cardiomegaly. The mass as previously discussed. States that this mass was not a simple cyst and could relate to a chronic hematoma or seroma. (Ester Santos) Disposition Time of Disposition: 21:21 <Ester Santos - Last Filed: 10/19/16 21:34> <Armani Tom - Last Filed: 10/21/16 17:10> Clinical Impression: Abdominal wall skin ulcer, Cellulitis, Fever Disposition: HOME SELF-CARE Condition: Stable Instructions: Acute Wound Care (ED) Additional Instructions: Keep pressure off wound area. Complete antibiotics. Call in the morning for an appointment with Dr. Taylor. Use acetaminophen for fever control. Return to emergency for any new, worsening, or concerning symptoms. Prescriptions: Levofloxacin [Levaquin] 750 mg PO DAILY #10 tab Referrals: John Taylor MD [Primary Care Provider] - 1-2 days
--- NOTE | 2016-10-19 18:01 | XR ---
EXAMINATION TYPE: XR chest 2V DATE OF EXAM: 10/19/2016 COMPARISON: 10/09/2016 HISTORY: Tachycardia and weakness TECHNIQUE: Frontal and lateral views of the chest are obtained. FINDINGS: Heart is probably enlarged. There is no heart failure. There is no pleural effusion. Lungs appear clear of consolidation. The bony thorax appears intact. IMPRESSION: No active cardiopulmonary disease. No change.
[2016-10-19] MEDS ORDERED: ACETAMINOPHEN TAB 500 MG TAB PO STA (18:08)
[2016-10-19 18:34] VITALS: RESP 18
[2016-10-19 18:34] LABS: Anisocytosis Slight; Basophils % (A) 1 %; CH 27.4; CHCM 31.3; Eosinophils # (A) 0.3 k/uL (0-0.7); Eosinophils % (A) 3 %; HCT 40.8 % (34.0-46.0); HDW 3.23; HGB 12.4 gm/dL (11.4-16.0); Hypochromasia Slight; Luc # (Auto) 0.26; Luc % (Auto) 3; Lymphocytes # (A) 1.2 k/uL (1.0-4.8); Lymphocytes % (A) 16 %; MCH 26.7 pg (25.0-35.0); MCHC 30.4 g/dL (31.0-37.0); MCV 87.9 fL (80.0-100.0); Mean Platelet Volume 8.7; Monocytes # (A) 0.4 k/uL (0-1.0); Monocytes % (A) 5 %; Neutrophils # (A) 5.4 k/uL (1.3-7.7); Neutrophils % (A) 71 %; RBC 4.65 m/uL (3.80-5.40); RDW 16.9 % (11.5-15.5); WBC 7.5 k/uL (3.8-10.6); WBC (Perox) 8.33
[2016-10-19 18:43] LABS: ALT 36 U/L (9-52); AST 36 U/L (14-36); Alkaline Phosphatase 132 U/L (38-126); Anion Gap 9 mmol/L; Blood Urea Nitrogen 27 mg/dL (7-17); Calcium 9.3 mg/dL (8.4-10.2); Carbon Dioxide 26 mmol/L (22-30); Chloride 98 mmol/L (98-107); Glucose 114 mg/dL (74-99); Non-African American GFR(MDRD) >60 (>60 ml/min/1.73 sqM); Potassium 4.1 mmol/L (3.5-5.1); Sodium 133 mmol/L (137-145); Total Bilirubin 0.6 mg/dL (0.2-1.3); Total Protein 5.6 g/dL (6.3-8.2)
[2016-10-19 18:48] LABS: Appearance,Urine Clear (Clear); Bilirubin,Urine Negative (Negative); Glucose,Urine (UA) Negative (Negative); Ketones,Urine Negative (Negative); Leukocyte Esterase,Urine Small (Negative); Mucus,Urine Rare /hpf; Nitrite,Urine Negative (Negative); PH, Urine 5.5 (5.0-8.0); Particle Count 1479; Protein,Urine Negative (Negative); RBC,Urine 1 /hpf (0-5); Specific Gravity,Urine 1.006 (1.001-1.035); Squamous Epithelial Cell,Urine <1 /hpf (0-4); UA Billing (MACRO vs. MICRO) MICRO; Urobilinogen,Urine <2.0 mg/dL (<2.0); WBC,Urine 1 /hpf (0-5)
[2016-10-19] MEDS ORDERED: RX INFO: IV CONTRAST WAS GIVEN 1 EACH MISC MISCELLANE PRN (19:31)
--- NOTE | 2016-10-19 20:56 | CT ---
EXAMINATION TYPE: CT abdomen pelvis w con DATE OF EXAM: 10/19/2016 COMPARISON: NONE HISTORY: Massive lump to left side of abdomen. CT DLP: 3120.5 mGycm Automated exposure control for dose reduction was used. TECHNIQUE: Helical acquisition of images was performed from the lung bases through the pelvis. CONTRAST: Performed without Oral Contrast and with IV Contrast, patient injected with 100 mL of Omnipaque 300. FINDINGS: Lung bases are clear of consolidation. Heart is enlarged. There is no pleural effusion. Liver shows no focal defect. Gallbladder appears normal. There is no sign of a pancreatic mass. Splee n appears normal. There are bilateral renal cortical cysts. The largest measures 9 cm on the right si de. There is no hydronephrosis. There is no adrenal mass. There is no retroperitoneal adenopathy. There is no ascites. There is a large mass in the subcutaneous tissues over the lateral anterior lower abdomen. This measu res 26 x 23 cm and has average density of 22. There are surgical clips apparently from hernia surgery . Bladder distends smoothly. I see no evidence of a bowel obstruction. There is no ascites. There is no evidence of a pelvic mass. The bony structures are intact. I see no focal bone destruction.: IMPRESSION: LARGE BILATERAL RENAL CORTICAL CYSTS. CARDIOMEGALY. LARGE LOW DENSITY MASS IN THE SUBCUTANEOUS TISSUES ON THE LEFT SIDE. THIS IS NOT A SIMPLE CYST AND CO ULD RELATE TO A CHRONIC HEMATOMA OR SEROMA.
[2016-10-19] MEDS ORDERED: ceFAZolin 1,000 MG in DEXTROSE/WATER 1 50ML.BAG IVPB STA (21:11)
[2016-10-19] MEDS ORDERED: ceFAZolin 1,000 MG in DEXTROSE/WATER 1 50ML.BAG IVPB SCH (21:15)
[2016-10-19] MEDS ORDERED: LEVOFLOXACIN 750 MG TAB PO STA (21:19)
[2016-10-19 21:38] VITALS: BP 110/65; PULSE 84; TEMP 98.8
== END 2016-10-19 22:10 | disposition home or self-care (01) ==
LOC: EC 17:02
DX: L98.499 Non-pressure chronic ulcer of skin of other sites with unspecified severity (principal); L03.311 Cellulitis of abdominal wall; R50.9 Fever, unspecified; J44.9 Chronic obstructive pulmonary disease, unspecified; E11.9 Type 2 diabetes mellitus without complications; E78.5 Hyperlipidemia, unspecified; E66.01 Morbid (severe) obesity due to excess calories; I50.9 Heart failure, unspecified; I48.91 Unspecified atrial fibrillation; D64.9 Anemia, unspecified; Z68.35 Body mass index [BMI] 35.0-35.9, adult; Z98.890 Other specified postprocedural states; Z88.5 Allergy status to narcotic agent; Z91.048 Other nonmedicinal substance allergy status; Z79.51 Long term (current) use of inhaled steroids; Z79.4 Long term (current) use of insulin; Z79.01 Long term (current) use of anticoagulants; Z79.899 Other long term (current) drug therapy
CPT/HCPCS: 99284; 96360; 96361 ×3; 36415; 80053; 83605; 85025; 81001; 87070; 87205; 87077; 87186; 71020; 74177; Q9967

== ENCOUNTER 2016-10-22 16:01 | Inpatient (IN) | payer MEDICARE ==
[2016-10-22] MEDS ORDERED: MORPHINE SULFATE 4 MG/ML SYRINGE IVP STA (16:29)
[2016-10-22] MEDS ORDERED: SODIUM CHLORIDE 0.9% 1,000 ML IV STA (16:29)
--- NOTE | 2016-10-22 16:34 | ED ---
Abdominal Pain HPI - General Chief Complaint: Abdominal Pain Stated Complaint: Abd swelling Time Seen by Provider: 10/22/16 16:18 Source: EMS Mode of arrival: EMS Limitations: altered mental status - History of Present Illness Initial Comments: This is a 65-year-old female who presents emergency department for large abdominal mass and chronic wounds. She was seen here few days ago for the same. She had a CAT scan that showed a large hematoma or seroma in her abdomen. She was started on Levaquin for her wound and told to follow-up. Apparently the patient was at Dr. Paul's office today and was sent into the emergency department from there area the patient is a very poor historian does not recall the whole lot of information. She states that she does not know why she is here. She complains mostly of right-sided abdominal pain which is not near the abdominal mass. No fevers or chills are reported. No other complaints. - Related Data Home Medications Medication Instructions Recorded Confirmed Montelukast Sodium [Singulair] 10 mg PO HS 10/10/15 10/19/16 Potassium Chloride ER [K-Dur 20] 20 meq PO DAILY 03/04/16 10/19/16 Budesonide/Formoterol Fumarate 2 puff INHALATION RT-BID 05/13/16 10/19/16 [Symbicort 160-4.5 Mcg Inhaler] Insulin Aspart Protam & Aspart 15 unit SQ HS 05/13/16 10/19/16 [NovoLOG MIX 70-30 Flexpen] Insulin Aspart Protam & Aspart 25 unit SQ DAILY 05/13/16 10/19/16 [NovoLOG MIX 70-30 Flexpen] Acetaminophen [Tylenol] 650 mg PO Q4H PRN 10/09/16 10/19/16 Atorvastatin [Lipitor] 10 mg PO HS 10/09/16 10/19/16 Famotidine [Pepcid] 20 mg PO HS 10/09/16 10/19/16 Ferrous Sulfate [Feosol] 325 mg PO HS 10/09/16 10/19/16 Folic Acid 1 mg PO DAILY 10/09/16 10/19/16 Furosemide [Lasix] 40 mg PO BID 10/09/16 10/19/16 Ipratropium-Albuterol Nebulize 3 ml INHALATION RT-Q6H 07/27/17 08/06/17 [Duoneb 0.5 mg-3 mg/3 ml Soln] Lidocaine 2% Gel [Xylocaine Jelly 1 applic TOPICAL DAILY 10/09/16 10/19/16 2%] Multivitamins, Thera [Multivitamin 1 tab PO HS 10/09/16 10/19/16 (formulary)] Rivaroxaban [Xarelto] 20 mg PO HS 10/09/16 10/19/16 Tiotropium 18 Mcg/Puff [Spiriva] 1 puff INHALATION RT-DAILY 10/09/16 10/19/16 clonazePAM [KlonoPIN] 0.5 mg PO DAILY PRN 10/09/16 10/19/16 clonazePAM [KlonoPIN] 0.5 mg PO HS 10/09/16 10/19/16 hydrOXYzine PAMOATE [Vistaril] 25 mg PO Q6HR PRN 10/09/16 10/19/16 traMADol HCL [Ultram] 50 mg PO Q6HR PRN 10/09/16 10/19/16 Magnesium Hydroxide [Milk of 2,400 mg PO Q72H PRN 10/19/16 10/19/16 Magnesia] guaiFENesin [Mucinex] 600 mg PO Q12H 10/19/16 10/19/16 Previous Rx's Medication Instructions Recorded Metoprolol Tartrate [Lopressor] 25 mg PO BID tab 05/16/16 Sertraline [Zoloft] 100 mg PO DAILY tab 05/16/16 Digoxin [Lanoxin] 125 mcg PO DAILY #30 tab 10/13/16 Diltiazem Cd [Cardizem Cd] 120 mg PO Q24HR #30 cap 10/13/16 Levofloxacin [Levaquin] 750 mg PO DAILY #10 tab 10/19/16 Allergies Allergy/AdvReac Type Severity Reaction Status Date / Time adhesive Allergy Rash/Hives Verified 10/19/16 17:07 codeine Allergy Rash/Hives Verified 10/19/16 18:00 Review of Systems ROS Statement: Those systems with pertinent positive or pertinent negative responses have been documented in the HPI. ROS Other: All systems not noted in ROS Statement are negative. 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 Chronic atrial fibrillation, chronic restrictive and obstructive lung disease secondary to morbid obesity and underlying bronchial asthma, chronic anemia History of Any Multi-Drug Resistant Organisms: None Reported Past Surgical History: Breast Surgery, Hernia Repair Additional Past Surgical History / Comment(s): cataracts Past Anesthesia/Blood Transfusion Reactions: No Reported Reaction Past Psychological History: Anxiety Smoking Status: Never smoker Past Alcohol Use History: None Reported Past Drug Use History: None Reported - Past Family History Mother Family Medical History: CVA/TIA Father Additional Family Medical History / Comment(s): WAS INJURED IN [facility] [place] [facility], also had hx tb but from complications of his injuries Brother(s) Additional Family Medical History / Comment(s): at age 2 years 10months tb General Exam - General Exam Comments Initial Comments: Constitutional: Awake alert Appears comfortable Head: Normocephalic atraumatic Eyes: no conjunctival injection No scleral icterus EOMI Neck: No JVD Supple Heart: Regular rate rhythm normal S1-S2 no murmurs Lungs: Clear to auscultation bilaterally No wheezing No rales Abdomen: Soft large lower left-sided abdominal mass that is distended with what appears to be ecchymosis, there is a necrotic wound to the left lower quadrant there is no objective tenderness to palpation Extremities: Non edematous DP pulses intact Radial pulses intact Neuro: Alert and oriented 1-2 No focal neurologic deficits Psych: Appropriate mood and affect Limitations: altered mental status Course Vital Signs 10/22/16 16:13 Temperature 98.0 F Pulse Rate 60 Respiratory 18 Rate Blood Pressure 93/58 O2 Sat by Pulse 100 Oximetry Medical Decision Making - Medical Decision Making This is a 65-year-old female presents emergency department for large abdominal mass and wounds. I spoke with Dr. Paul on the phone and he would like to bring the patient into observation to possibly have the hematoma or seroma drained by interventional radiology. He recommended continuing with IV Levaquin. I spoke with Dr. Taylor also about the case who stated that since a surgical issue he feels that should be admitted under Dr. Paul however he will gladly be on consultation for medical management and pain control. The patient was updated on the plan and agrees. All questions were answered. Disposition Clinical Impression: Abdominal wall hematoma, Wound infection Disposition: ADMITTED IP TO THIS HOSP Condition: Stable
[2016-10-22] MEDS ORDERED: LEVOFLOXACIN 500MG-D5W PMX 500 MG in DEXTROSE/WATER 1 100ML.BAG IVPB STA (16:51)
[2016-10-22] MEDS ORDERED: hydrOXYzine PAMOATE 25 MG CAP PO PRN (16:51)
[2016-10-22] MEDS ORDERED: NALOXONE 0.4 MG/ML 1 ML VIAL IV PRN (17:14)
[2016-10-22 17:30] LABS: INR 1.5 (<1.2); Prothrombin Time 14.7 sec (9.0-12.0)
[2016-10-22 18:54] LABS: Basophils # (A) 0.1 k/uL (0-0.2); Basophils % (A) 1 %; CH 26.6; CHCM 31.2; Eosinophils # (A) 0.3 k/uL (0-0.7); Eosinophils % (A) 4 %; HCT 40.1 % (34.0-46.0); HDW 3.27; HGB 12.7 gm/dL (11.4-16.0); Hypochromasia Moderate; Luc # (Auto) 0.36; Luc % (Auto) 4; Lymphocytes # (A) 1.4 k/uL (1.0-4.8); Lymphocytes % (A) 18 %; MCH 27.2 pg (25.0-35.0); MCHC 31.7 g/dL (31.0-37.0); MCV 85.6 fL (80.0-100.0); Mean Platelet Volume 8.1; Monocytes # (A) 0.6 k/uL (0-1.0); Monocytes % (A) 7 %; Neutrophils # (A) 5.4 k/uL (1.3-7.7); Neutrophils % (A) 67 %; RBC 4.68 m/uL (3.80-5.40); WBC 8.1 k/uL (3.8-10.6)
[2016-10-22 19:00] LABS: Calcium 9.8 mg/dL (8.4-10.2); Total Bilirubin 0.6 mg/dL (0.2-1.3); Total Protein 5.8 g/dL (6.3-8.2)
[2016-10-22] MEDS: SYMBICORT 160-4.5 MCG INHALER INHALATION SCH (20:30)
[2016-10-22] MEDS ORDERED: INSULN ASP PRT/INSULIN ASPART 100 UNIT/ML 10 ML VIAL SQ SCH (21:00)
[2016-10-22 21:21] LABS: Glucose,Whole Blood 90 mg/dL (75-99)
[2016-10-22] MEDS: ATORVASTATIN 10 MG TAB PO SCH (22:47)
[2016-10-22] MEDS: FUROSEMIDE 40 MG TAB PO SCH (22:47)
[2016-10-22] MEDS: FAMOTIDINE 20 MG TAB PO SCH (22:47)
[2016-10-22] MEDS: METOPROLOL TARTRATE 25 MG TAB PO SCH (22:48)
[2016-10-22] MEDS: MONTELUKAST 10 MG TAB PO SCH (22:48)
[2016-10-22] MEDS: FERROUS SULFATE 325 MG TAB PO SCH (22:48)
[2016-10-23 01:28] LABS: Glucose,Whole Blood 118 mg/dL (75-99)
[2016-10-23] MEDS: INSULIN LISPRO (humaLOG) 300 UNIT/3 ML VIAL SQ SCH ×4 (01:28→17:53)
[2016-10-23] MEDS: MORPHINE SULFATE 2 MG/ML SYRINGE IV PRN ×2 (03:03→18:28)
[2016-10-23 04:54] LABS: Glucose,Whole Blood 105 mg/dL (75-99)
[2016-10-23] MEDS: SYMBICORT 160-4.5 MCG INHALER INHALATION SCH ×2 (07:13→19:55)
[2016-10-23] MEDS: TIOTROPIUM 18 MCG/PUFF INHALER INHALATION SCH (07:13)
[2016-10-23] MEDS ORDERED: INSULN ASP PRT/INSULIN ASPART 100 UNIT/ML 10 ML VIAL SQ SCH (09:00)
[2016-10-23] MEDS: DIGOXIN 125 MCG TAB PO SCH (09:33)
[2016-10-23] MEDS: DILTIAZEM CD 120 MG CAP.ER.24H PO SCH (09:33)
[2016-10-23] MEDS: METOPROLOL TARTRATE 25 MG TAB PO SCH ×2 (09:33→20:42)
[2016-10-23] MEDS: FUROSEMIDE 40 MG TAB PO SCH ×2 (09:33→20:42)
[2016-10-23] MEDS: SERTRALINE 100 MG TAB PO SCH (09:34)
[2016-10-23] MEDS ORDERED: ALBUTEROL NEBULIZED 2.5 MG/3 ML INHALATION PRN (10:52)
--- NOTE | 2016-10-23 10:52 | P.CONS ---
History of Present Illness - Reason for Consult Consult date: 10/23/16 Medical management of hypertension, COPD, dementia, DM 2 - History of Present Illness Carmina is a 65-year-old white female well-known to me from the practice. She's currently been living at [facility]. Her previous line lead, her nephew Maxwell, and his , were unable to care for adequately at home. She has a known history of underlying dementia. She's been hospitalized multiple times in the past for a variety of conditions. Most recently she was hospitalized for atrial fibrillation with RVR. She has a long-standing history of unrepaired abdominal hernia with large pedunculated mass. This had gotten slightly larger and increased in pain just recently. A CT scan done of this showed a seroma or hematoma to the area. He had been treated at [facility] and more recently in the wound center for a ulcer to the right lateral abdomen. She also developed one now to the left lateral abdomen. He was sent to the emergency room and the CT was done. She was sent to Dr. Claudio Paul for an outpatient visit. After reviewing the films, and her pain level, he felt it was best that she be admitted. Her Xarelto is currently on hold for possible seroma drainage via interventional radiology. Review of Systems All systems: negative Past Medical History Past Medical History: Atrial Fibrillation, Asthma (chronic restrictive and obstructive lung disease secondary to morbid obesity), Heart Failure, COPD, Diabetes Mellitus, Hyperlipidemia, Hypertension, Sleep Apnea/CPAP/BIPAP Additional Past Medical History / Comment(s): POOR HISTORIAN obstructive sleep apnea with CPAP 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, abdominal mass History of Any Multi-Drug Resistant Organisms: None Reported Past Surgical History: Breast Surgery, Hernia Repair Additional Past Surgical History / Comment(s): cataracts Past Anesthesia/Blood Transfusion Reactions: No Reported Reaction Past Psychological History: Anxiety Smoking Status: Never smoker Additional History: , has court-appointed guardian, resides at [facility] - Past Family History Mother Family Medical History: CVA/TIA Father Additional Family Medical History / Comment(s): WAS INJURED IN [place], also had hx tb but from complications of his injuries Brother(s) Additional Family Medical History / Comment(s): at age 2 years 10months tb Medications and Allergies Home Medications Medication Instructions Recorded Confirmed Type Montelukast Sodium [Singulair] 10 mg PO HS@199910/10/15 10/22/16 History Potassium Chloride ER [K-Dur 20] 20 meq PO DAILY 03/04/16 10/22/16 History Budesonide/Formoterol Fumarate 2 puff INHALATION RT-BID@08,05/13/16 10/22/16 History [Symbicort 160-4.5 Mcg Inhaler] Insulin Aspart Protam & Aspart 15 unit SQ HS 05/13/16 10/22/16 History [NovoLOG MIX 70-30 Flexpen] Insulin Aspart Protam & Aspart 25 unit SQ DAILY 05/13/16 10/22/16 History [NovoLOG MIX 70-30 Flexpen] Acetaminophen [Tylenol] 650 mg PO Q4H PRN 10/09/16 10/22/16 History Atorvastatin [Lipitor] 10 mg PO HS@199910/09/16 10/22/16 History Famotidine [Pepcid] 20 mg PO HS@199910/09/16 10/22/16 History Ferrous Sulfate [Feosol] 325 mg PO HS 10/09/16 10/22/16 History Folic Acid 1 mg PO DAILY 10/09/16 10/22/16 History Furosemide [Lasix] 40 mg PO BID 10/09/16 10/22/16 History Ipratropium-Albuterol Nebulize 3 ml INHALATION RT-QID@,,,10/09/1610/22 History [Duoneb 0.5 mg-3 mg/3 ml Soln] Lidocaine 2% Gel [Xylocaine Jelly 1 applic TOPICAL DAILY@79910/09/16 10/22/16 History 2%] Multivitamins, Thera [Multivitamin 1 tab PO HS 10/09/16 10/22/16 History (formulary)] Rivaroxaban [Xarelto] 20 mg PO HS@199910/09/16 10/22/16 History Tiotropium 18 Mcg/Puff [Spiriva] 1 cap INHALATION RT-DAILY 10/09/16 10/22/16 History clonazePAM [KlonoPIN] 0.5 mg PO DAILY PRN 10/09/16 10/22/16 History clonazePAM [KlonoPIN] 0.5 mg PO HS@199910/09/16 10/22/16 History hydrOXYzine PAMOATE [Vistaril] 25 mg PO Q6HR PRN 10/09/16 10/22/16 History traMADol HCL [Ultram] 100 mg PO Q6H PRN 10/09/16 10/22/16 History Magnesium Hydroxide [Milk of 2,400 mg PO Q72H PRN 10/19/16 10/22/16 History Magnesia] guaiFENesin [Mucinex] 600 mg PO BID@08,199910/19/16 10/22/16 History Digoxin [Lanoxin] 125 mcg PO HS 10/22/16 10/22/16 History Diltiazem Cd [Cardizem Cd] 120 mg PO HS 10/22/16 10/22/16 History HYDROcodone/APAP 5-325MG [[place] 2 tab PO Q4HR PRN 10/22/16 10/22/16 History 5-325] Allergies Allergy/AdvReac Type Severity Reaction Status Date / Time adhesive Allergy Rash/Hives Verified 10/19/16 17:07 codeine Allergy Rash/Hives Verified 10/19/16 18:00 Physical Exam Vitals: Vital Signs Temp Pulse Pulse Resp BP BP Pulse Ox 10/23/16 07:00 98.9 F 53 L 20 118/61 98 10/23/16 03:03 99.4 F 75 16 126/58 10/22/16 21:28 98.2 F 79 17 115/52 98 10/22/16 19:20 98.1 F 62 16 154/93 99 10/22/16 18:33 160/58 10/22/16 18:24 64 18 100 10/22/16 16:13 98.0 F 60 18 93/58 100 Intake and Output 10/22/16 10/23/16 10/23/16 22:59 06:59 14:59 Intake Total 1400 Output Total 600 Balance 800 Intake: Intake, IV Titration 1200 Amount Levofloxacin 500Mg-D5w 1200 Pmx 500 mg In Dextrose/ Water 1 100ml.bag @ 100 mls/hr IVPB ONCE STA Rx#: [id number] Oral 200 Output: Urine 600 Other: Weight 104.054 kg GENERAL: Well-appearing, overly obese, and in no acute distress. She looks older than her stated age of 65. HEAD: Atraumatic, normocephalic. EYES: Pupils equal round and reactive to light, extraocular movements intact, sclera anicteric, conjunctiva are normal. ENT:nares patent, oropharynx clear without exudates. Moist mucous membranes. NECK: Normal range of motion, supple without lymphadenopathy or JVD, no thyromegaly LUNGS: Breath sounds coarse to auscultation bilaterally and equal. No wheezes rales or rhonchi. HEART: irregular rate and rhythm without murmurs, rubs or gallops.S1S2 Normal ABDOMEN: Soft, nontender, normoactive bowel sounds. No guarding, no rebound. No masses appreciated. EXTREMITIES: Normal range of motion, no pitting or edema. No clubbing or cyanosis. NEUROLOGICAL: Cranial nerves II through XII grossly intact. Normal speech, normal gait. PSYCH: Normal mood, normal affect. SKIN: Full-thickness ulcer 2 to the right and left lateral abdomen. There is large amount of slough on the right, and we'll large amount of necrotic tissue on the left. Results CBC & Chem 7: 10/22/16 16:16 10/22/16 16:16 Labs: Abnormal Lab Results - Last 24 Hours (Table) 10/22/16 10/22/16 10/22/16 Range/Units 16:16 16:16 16:16 RDW 16.0 H (11.5-15.5) % PT 14.7 H (9.0-12.0) sec INR 1.5 H (<1.2) APTT (22.0-30.0) sec Sodium 132 L (137-145) mmol/L Chloride 95 L (98-107) mmol/L Carbon Dioxide 31 H (22-30) mmol/L BUN 37 H (7-17) mg/dL Creatinine 1.28 H (0.52-1.04) mg/dL Glucose 105 H (74-99) mg/dL POC Glucose (mg/dL) (75-99) mg/dL Alkaline Phosphatase 129 H (38-126) U/L Total Protein 5.8 L (6.3-8.2) g/dL Albumin 2.8 L (3.5-5.0) g/dL 10/22/16 10/23/16 10/23/16 Range/Units 16:16 01:26 04:52 RDW (11.5-15.5) % PT (9.0-12.0) sec INR (<1.2) APTT 33.4 H (22.0-30.0) sec Sodium (137-145) mmol/L Chloride (98-107) mmol/L Carbon Dioxide (22-30) mmol/L BUN (7-17) mg/dL Creatinine (0.52-1.04) mg/dL Glucose (74-99) mg/dL POC Glucose (mg/dL) 118 H 105 H (75-99) mg/dL Alkaline Phosphatase (38-126) U/L Total Protein (6.3-8.2) g/dL Albumin (3.5-5.0) g/dL CT scan - abdomen: report reviewed (Seroma or hematoma noted.) Assessment and Plan Plan: Subcutaneous mass FROM seroma or hematoma in the abdomen causing increased pain : She is admitted Dr. Parsons service. He is planning on having interventional radiology drain the mass. She has morphine ordered for pain. Stage 3 pressure ulcer bilateral right and left abdomen: These are most likely worse exacerbated by the seroma, and her immobility, recent hospitalization, I' ll have him apply medihoney gel and cover these with a DuoDERM. Atrial fibrillation: Her anticoagulation is on hold for interventional radiology. Continue her digoxin, metoprolol, and diltiazem. Diastolic congestive heart failure: As above Insulin dependent diabetes mellitus: I will hold her 70/30 for upcoming procedure. Continue Accu-Cheks before meals and at bedtime and a Humalog scale. Asthma/COPD: She'll continue on her Singulair, Symbicort, Spiriva, and will add albuterol updrafts as needed. Hyperlipidemia: She can continue on her atorvastatin. Dementia: I will start her on Aricept 5 mg daily at this time. Anxiety: We will hold her Klonopin at this time. I prophylaxis: Continue on famotidine. DVT prophylaxis: Currently being held for possible upcoming interventional radiology. I'll continue to follow her with you, check a digoxin level and add albuterol if needed for shortness of breath. I'll start her Aricept for her worsening dementia. I'll reevaluate her in the next 24 hours.
[2016-10-23] MEDS: FOLIC ACID 1 MG TAB PO SCH (11:21)
[2016-10-23 12:07] LABS: Glucose,Whole Blood 99 mg/dL (75-99)
[2016-10-23 12:31] LABS: Hemoglobin A1C 6.2 % (4.2-6.1)
[2016-10-23 17:31] LABS: Glucose,Whole Blood 113 mg/dL (75-99)
--- NOTE | 2016-10-23 17:48 | P.GSHP ---
History of Present Illness H&P Date: 10/23/16 Chief Complaint: Lower abdominal wall mass Patient seen in the office yesterday for a consultation. The patient has had progressive swelling in the lower abdominal wall. This has resulted in ischemic necrosis of the skin in the most inferior aspect. There is pain. Denies fevers. Patient denies any history of hernia repair however the patient on CAT scan appears to have metallic clips from prior surgical intervention. The patient prior to this states that she did have a large pannus. Patient is a somewhat poor historian. For the longest time the patient was under the impression she actually had a hernia in the lower abdomen. Recent CAT scan from September shows a large density in that area suspicious for possible seroma or hematoma. She does take Xarelto for A. fib. She currently resides at [facility]. She is on IV antibiotics. White blood cell count is normal. INR is 1.5. - Review of Systems Comment: The patient denies any acute changes in vision or hearing, no dysphagia or odynophagia, no chest pain or shortness of breath, no dysuria or hematuria, no headache, no runny nose, no rectal bleeding or melena, no unexplained weight loss Past Medical History Past Medical History: Atrial Fibrillation, Asthma (chronic restrictive and obstructive lung disease secondary to morbid obesity), Heart Failure, COPD, Diabetes Mellitus, Hyperlipidemia, Hypertension, Sleep Apnea/CPAP/BIPAP Additional Past Medical History / Comment(s): POOR HISTORIAN obstructive sleep apnea with CPAP 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, abdominal mass History of Any Multi-Drug Resistant Organisms: None Reported Past Surgical History: Breast Surgery, Hernia Repair Additional Past Surgical History / Comment(s): cataracts Past Anesthesia/Blood Transfusion Reactions: No Reported Reaction Past Psychological History: Anxiety Smoking Status: Never smoker - Past Family History Mother Family Medical History: CVA/TIA Father Additional Family Medical History / Comment(s): WAS INJURED [place], also had hx tb but from complications of his injuries Brother(s) Additional Family Medical History / Comment(s): at age 2 years 10months tb Medications and Allergies Home Medications Medication Instructions Recorded Confirmed Type Montelukast Sodium [Singulair] 10 mg PO HS@199910/10/15 10/22/16 History Potassium Chloride ER [K-Dur 20] 20 meq PO DAILY 03/04/16 10/22/16 History Budesonide/Formoterol Fumarate 2 puff INHALATION RT-BID@08,20 05/13/16 10/22/16 History [Symbicort 160-4.5 Mcg Inhaler] Insulin Aspart Protam & Aspart 15 unit SQ HS 05/13/16 10/22/16 History [NovoLOG MIX 70-30 Flexpen] Insulin Aspart Protam & Aspart 25 unit SQ DAILY 05/13/16 10/22/16 History [NovoLOG MIX 70-30 Flexpen] Acetaminophen [Tylenol] 650 mg PO Q4H PRN 10/09/16 10/22/16 History Atorvastatin [Lipitor] 10 mg PO HS@199910/09/16 10/22/16 History Famotidine [Pepcid] 20 mg PO HS@199910/09/16 10/22/16 History Ferrous Sulfate [Feosol] 325 mg PO HS 10/09/16 10/22/16 History Folic Acid 1 mg PO DAILY 10/09/16 10/22/16 History Furosemide [Lasix] 40 mg PO BID 10/09/16 10/22/16 History Ipratropium-Albuterol Nebulize 3 ml INHALATION RT-QID@,,,10/09/1610/22 History [Duoneb 0.5 mg-3 mg/3 ml Soln] Lidocaine 2% Gel [Xylocaine Jelly 1 applic TOPICAL DAILY@0800 10/09/16 10/22/16 History 2%] Multivitamins, Thera [Multivitamin 1 tab PO HS 10/09/16 10/22/16 History (formulary)] Rivaroxaban [Xarelto] 20 mg PO HS@199910/09/16 10/22/16 History Tiotropium 18 Mcg/Puff [Spiriva] 1 cap INHALATION RT-DAILY 10/09/16 10/22/16 History clonazePAM [KlonoPIN] 0.5 mg PO DAILY PRN 10/09/16 10/22/16 History clonazePAM [KlonoPIN] 0.5 mg PO HS@199910/09/16 10/22/16 History hydrOXYzine PAMOATE [Vistaril] 25 mg PO Q6HR PRN 10/09/16 10/22/16 History traMADol HCL [Ultram] 100 mg PO Q6H PRN 10/09/16 10/22/16 History Magnesium Hydroxide [Milk of 2,400 mg PO Q72H PRN 10/19/16 10/22/16 History Magnesia] guaiFENesin [Mucinex] 600 mg PO BID@0800,2000 10/19/16 10/22/16 History Digoxin [Lanoxin] 125 mcg PO HS 10/22/16 10/22/16 History Diltiazem Cd [Cardizem Cd] 120 mg PO HS 10/22/16 10/22/16 History HYDROcodone/APAP 5-325MG [[place] 2 tab PO Q4HR PRN 10/22/16 10/22/16 History 5-325] Allergies Allergy/AdvReac Type Severity Reaction Status Date / Time adhesive Allergy Rash/Hives Verified 10/19/16 17:07 codeine Allergy Rash/Hives Verified 10/19/16 18:00 Surgical - Exam Vital Signs Temp Pulse Resp BP Pulse Ox 98.0 F 60 18 93/58 100 10/22/16 16:13 10/22/16 16:13 10/22/16 16:13 10/22/16 16:13 10/22/16 16:13 Physical exam: General: Well-developed, well-nourished HEENT: Normocephalic, sclerae nonicteric Abdomen: Large pannus with a gigantic mass like area in the midportion of the pannus measuring approximately 25 x 30 cm, skin appears slightly mottled, wounds present beneath the pannus bilaterally, mild tenderness Extremities: No edema Neuro: Alert and oriented Results - Labs 10/22/16 16:16 10/22/16 16:16 Abnormal Lab Results - Last 24 Hours (Table) 10/22/16 10/22/16 10/22/16 Range/Units 16:16 16:16 16:16 RDW 16.0 H (11.5-15.5) % APTT 33.4 H (22.0-30.0) sec Sodium 132 L (137-145) mmol/L Chloride 95 L (98-107) mmol/L Carbon Dioxide 31 H (22-30) mmol/L BUN 37 H (7-17) mg/dL Creatinine 1.28 H (0.52-1.04) mg/dL Glucose 105 H (74-99) mg/dL POC Glucose (mg/dL) (75-99) mg/dL Hemoglobin A1c (4.2-6.1) % Alkaline Phosphatase 129 H (38-126) U/L Total Protein 5.8 L (6.3-8.2) g/dL Albumin 2.8 L (3.5-5.0) g/dL 10/22/16 10/23/16 10/23/16 Range/Units 16:16 01:26 04:52 RDW (11.5-15.5) % APTT (22.0-30.0) sec Sodium (137-145) mmol/L Chloride (98-107) mmol/L Carbon Dioxide (22-30) mmol/L BUN (7-17) mg/dL Creatinine (0.52-1.04) mg/dL Glucose (74-99) mg/dL POC Glucose (mg/dL) 118 H 105 H (75-99) mg/dL Hemoglobin A1c 6.2 H (4.2-6.1) % Alkaline Phosphatase (38-126) U/L Total Protein (6.3-8.2) g/dL Albumin (3.5-5.0) g/dL 10/23/16 Range/Units 17:27 RDW (11.5-15.5) % APTT (22.0-30.0) sec Sodium (137-145) mmol/L Chloride (98-107) mmol/L Carbon Dioxide (22-30) mmol/L BUN (7-17) mg/dL Creatinine (0.52-1.04) mg/dL Glucose (74-99) mg/dL POC Glucose (mg/dL) 113 H (75-99) mg/dL Hemoglobin A1c (4.2-6.1) % Alkaline Phosphatase (38-126) U/L Total Protein (6.3-8.2) g/dL Albumin (3.5-5.0) g/dL Diabetes panel 10/22/16 10/22/16 Range/Units 16:16 16:16 Sodium 132 L (137-145) mmol/L Potassium 5.0 (3.5-5.1) mmol/L Chloride 95 L (98-107) mmol/L Carbon Dioxide 31 H (22-30) mmol/L BUN 37 H (7-17) mg/dL Creatinine 1.28 H (0.52-1.04) mg/dL Glucose 105 H (74-99) mg/dL Hemoglobin A1c 6.2 H (4.2-6.1) % Calcium 9.8 (8.4-10.2) mg/dL AST 30 (14-36) U/L ALT 36 (9-52) U/L Alkaline Phosphatase 129 H (38-126) U/L Total Protein 5.8 L (6.3-8.2) g/dL Albumin 2.8 L (3.5-5.0) g/dL Calcium panel 10/22/16 Range/Units 16:16 Calcium 9.8 (8.4-10.2) mg/dL Albumin 2.8 L (3.5-5.0) g/dL Pituitary panel 10/22/16 Range/Units 16:16 Sodium 132 L (137-145) mmol/L Potassium 5.0 (3.5-5.1) mmol/L Chloride 95 L (98-107) mmol/L Carbon Dioxide 31 H (22-30) mmol/L BUN 37 H (7-17) mg/dL Creatinine 1.28 H (0.52-1.04) mg/dL Glucose 105 H (74-99) mg/dL Calcium 9.8 (8.4-10.2) mg/dL Adrenal panel 10/22/16 Range/Units 16:16 Sodium 132 L (137-145) mmol/L Potassium 5.0 (3.5-5.1) mmol/L Chloride 95 L (98-107) mmol/L Carbon Dioxide 31 H (22-30) mmol/L BUN 37 H (7-17) mg/dL Creatinine 1.28 H (0.52-1.04) mg/dL Glucose 105 H (74-99) mg/dL Calcium 9.8 (8.4-10.2) mg/dL Total Bilirubin 0.6 (0.2-1.3) mg/dL AST 30 (14-36) U/L ALT 36 (9-52) U/L Alkaline Phosphatase 129 H (38-126) U/L Total Protein 5.8 L (6.3-8.2) g/dL Albumin 2.8 L (3.5-5.0) g/dL Assessment and Plan (1) Abdominal wall mass of suprapubic region Narrative/Plan: We will plan either open drainage or percutaneous drainage of this fluid collection tomorrow. Continue IV antibiotics. Oral vitamin K for the marginally elevated INR. Continue to hold anticoagulation. Status: Acute
[2016-10-23] MEDS: PHYTONADIONE ORAL 5 MG/5 ML ORAL.SYRG PO STA ×2 (18:28→18:34)
[2016-10-23] MEDS: FAMOTIDINE 20 MG TAB PO SCH (20:43)
[2016-10-23] MEDS: ATORVASTATIN 10 MG TAB PO SCH (20:43)
[2016-10-23] MEDS: MONTELUKAST 10 MG TAB PO SCH (20:43)
[2016-10-23] MEDS: FERROUS SULFATE 325 MG TAB PO SCH (20:43)
[2016-10-23] MEDS: DONEPEZIL 5 MG TAB PO SCH (21:07)
[2016-10-24 00:39] LABS: Glucose,Whole Blood 108 mg/dL (75-99)
[2016-10-24] MEDS: PIPERACILLIN-TAZOBACTAM 3.375 GM in DEXTROSE/WATER 1 50ML.BAG IVPB SCH ×4 (00:51→23:43)
[2016-10-24] MEDS: INSULIN LISPRO (humaLOG) 300 UNIT/3 ML VIAL SQ SCH ×4 (00:51→22:31)
[2016-10-24] MEDS: HEPARIN SODIUM,PORCINE 5,000 UNIT/ML 1 ML VIAL SQ SCH ×4 (00:53→23:43)
[2016-10-24] MEDS: SYMBICORT 160-4.5 MCG INHALER INHALATION SCH ×2 (07:21→20:24)
[2016-10-24] MEDS: TIOTROPIUM 18 MCG/PUFF INHALER INHALATION SCH (07:22)
[2016-10-24 07:50] LABS: INR 1.4 (<1.2); Prothrombin Time 13.6 sec (9.0-12.0)
[2016-10-24 08:00] LABS: Anisocytosis Slight; Basophils # (A) 0.1 k/uL (0-0.2); Basophils % (A) 1 %; CH 27.2; CHCM 31.2; Eosinophils # (A) 0.2 k/uL (0-0.7); Eosinophils % (A) 2 %; HCT 35.5 % (34.0-46.0); HDW 3.17; HGB 11.1 gm/dL (11.4-16.0); Hypochromasia Moderate; Luc # (Auto) 0.23; Luc % (Auto) 3; Lymphocytes # (A) 1.2 k/uL (1.0-4.8); Lymphocytes % (A) 16 %; MCH 27.4 pg (25.0-35.0); MCHC 31.3 g/dL (31.0-37.0); MCV 87.5 fL (80.0-100.0); Mean Platelet Volume 8.6; Monocytes # (A) 0.5 k/uL (0-1.0); Monocytes % (A) 7 %; Neutrophils # (A) 5.4 k/uL (1.3-7.7); Neutrophils % (A) 72 %; RBC 4.06 m/uL (3.80-5.40); RDW 16.5 % (11.5-15.5); WBC 7.6 k/uL (3.8-10.6); WBC (Perox) 7.49
[2016-10-24 08:15] LABS: Anion Gap 8 mmol/L; Blood Urea Nitrogen 31 mg/dL (7-17); Carbon Dioxide 27 mmol/L (22-30); Chloride 100 mmol/L (98-107); Glucose 90 mg/dL (74-99); Non-African American GFR(MDRD) >60 (>60 ml/min/1.73 sqM); Potassium 3.9 mmol/L (3.5-5.1); Sodium 135 mmol/L (137-145)
[2016-10-24] MEDS: DIGOXIN 125 MCG TAB PO SCH (10:39)
[2016-10-24] MEDS: DILTIAZEM CD 120 MG CAP.ER.24H PO SCH (10:40)
[2016-10-24] MEDS: SERTRALINE 100 MG TAB PO SCH (10:40)
[2016-10-24] MEDS: METOPROLOL TARTRATE 25 MG TAB PO SCH ×2 (10:40→23:38)
[2016-10-24] MEDS: FUROSEMIDE 40 MG TAB PO SCH ×2 (10:40→23:38)
[2016-10-24] MEDS: FOLIC ACID 1 MG TAB PO SCH (12:44)
[2016-10-24] MEDS ORDERED: IV FLUID CONTINUATION 1,000 ML IV ONE ×2 (14:06)
--- NOTE | 2016-10-24 14:08 | P.PN ---
Progress Note - Text The patient's case was discussed with Dr. Hoover and also her power of ctc operator. We've decided to proceed with surgical drainage with plans completely evacuate the fluid collection. Sample and culture the fluid. And possibly debride the skin wounds. More than likely wound VAC will be utilized either intraoperatively or postoperatively. Risks of bleeding, infection, anesthesia- related complications, poor wound healing, chronic wound, potential need for additional surgical intervention was discussed. They understand and wish to proceed.
[2016-10-24 14:16] LABS: Glucose,Whole Blood 96 mg/dL (75-99)
[2016-10-24] MEDS ORDERED: SODIUM CHLORIDE 0.9% 1,000 ML IV ONE ×2 (14:17)
[2016-10-24] MEDS ORDERED: LIDOCAINE 1% INJ 10MG/ML (20 ML MDV) ONE (14:38)
[2016-10-24] MEDS ORDERED: NEOSTIGMINE 1 MG/ML 10 ML VIAL ONE (14:38)
[2016-10-24] MEDS ORDERED: ePHEDrine SULFATE/0.9% NACL/PF 50 MG/5 ML SYRINGE IV ONE (14:38)
[2016-10-24] MEDS ORDERED: GLYCOPYRROLATE 0.2 MG/ML 2 ML VIAL ONE (14:38)
[2016-10-24] MEDS ORDERED: MIDAZOLAM 2 MG/2 ML VIAL ONE (14:38)
[2016-10-24] MEDS ORDERED: PROPOFOL 10 MG/ML 20 ML VIAL IV ONE (14:38)
[2016-10-24] MEDS ORDERED: fentaNYL (PF) 50 MCG/ML 2 ML AMP ONE (14:38)
[2016-10-24] MEDS ORDERED: SUCCINYLCHOLINE CHLORIDE 100 MG/5 ML SYR IV ONE (14:38)
[2016-10-24] MEDS ORDERED: ROCURONIUM BROMIDE 10 MG/ML 10 ML VIAL IV ONE (14:38)
[2016-10-24] MEDS ORDERED: SODIUM CHLORIDE 0.9% 50 ML with ceFAZolin 3,000 MG IV ONE ×2 (14:45)
[2016-10-24] MEDS ORDERED: LACTATED RINGERS 1,000 ML IV ONE (16:26)
--- NOTE | 2016-10-24 17:15 | P.OP ---
Date of Procedure: 10/24/16 Preoperative Diagnosis: Postoperative Diagnosis: Procedure(s) Performed: PREOPERATIVE DIAGNOSIS: Abdominal wall mass/fluid collection POSTOPERATIVE DIAGNOSIS: Same PROCEDURE: Incision and drainage abdominal wall fluid collection with panniculectomy and wound VAC placement SURGEON: Jaqueline DUMONTL: 100 mL ANESTHESIA: Gen. COMPLICATIONS: None OPERATIVE PROCEDURE: Patient was placed in the supine position. Patient was placed under general anesthesia. The patient's abdomen including the pannus and upper thighs were prepped and draped in usual sterile fashion. The mass again was quite large and there was ischemic necrosis to the skin along the inferior aspect. An incision was made transversely across the fluid collection/ mass and initially 4 L of brownish colored [id number] fluid was evacuated. The mass was not completely resolved and the incision was lengthened slightly. Entrance into this masslike collection revealed brownish firm but friable tissue that was thought to likely represent old blood. I did have a frozen section performed which was negative for cellular tissue. Given the ischemic nature of the skin I decided to perform a panniculectomy. An elliptical incision was made encompassing the mass extending to the flank bilaterally. Dissection through the saphenous tissues took place using electrocautery and the LigaSure device. I was able to fairly easily remove the pannus from the fascia with the exception of a centralized portion of adherent tissue which represented old mesh from a previous hernia repair. The scar from the mesh was palpable however I was not able to palpate definite mesh. The central portion of the dissection measured 20 x 15 cm. Again this was the posterior wall of the fluid collection. This was debrided and the adherent old blood was evacuated from that area. This was sent to pathology for close examination including both the skin/pannus and debris within the hematoma. This weighed 20 pounds. This is not including the 4 L of fluid that was evacuated. The operative site was carefully irrigated with saline. Small bleeding areas were controlled with cautery. A drain was placed exiting laterally and inferiorly bilaterally. This was a 19-Spanish channel drain. The saphenous fat was then reapproximated using 2-0 Vicryl sutures. The skin was closed bilaterally with the exception of leaving the central portion open using leodan. I then decided to place a wound VAC over the central aspect of the panniculectomy incision site. The black foam was cut appropriately. This was hooked up the wound VAC and we had excellent seal. Sterile dressings were applied laterally to the incision sites that were still exposed. DISPOSITION: Stable to recovery room Implants: Indications for Procedure: Operative Findings: Description of Procedure:
[2016-10-24 17:45] LABS: Glucose,Whole Blood 115 mg/dL (75-99)
--- NOTE | 2016-10-24 18:13 | P.PN ---
Progress Note - Text patient was in the OR and unavailable at the time of My rounds 10/24. I will reevalute in [facility]
[2016-10-24] MEDS: LORazepam 2 MG/ML SYRINGE IV PRN (18:46)
[2016-10-24] MEDS: MONTELUKAST 10 MG TAB PO SCH (23:38)
[2016-10-24] MEDS: ATORVASTATIN 10 MG TAB PO SCH (23:39)
[2016-10-24] MEDS: FAMOTIDINE 20 MG TAB PO SCH (23:39)
[2016-10-24] MEDS: DONEPEZIL 5 MG TAB PO SCH (23:39)
[2016-10-24] MEDS: FERROUS SULFATE 325 MG TAB PO SCH (23:39)
[2016-10-24] MEDS: MORPHINE SULFATE 2 MG/ML SYRINGE IV PRN (23:51)
[2016-10-25] MEDS: LACTATED RINGERS 1,000 ML IV SCH ×3 (03:22→23:32)
[2016-10-25] MEDS: INSULIN LISPRO (humaLOG) 300 UNIT/3 ML VIAL SQ SCH ×4 (03:22→17:28)
[2016-10-25 03:24] LABS: Glucose,Whole Blood 131 mg/dL (75-99)
[2016-10-25] MEDS: MORPHINE SULFATE 2 MG/ML SYRINGE IV PRN ×3 (03:29→23:15)
[2016-10-25 06:14] LABS: Glucose,Whole Blood 121 mg/dL (75-99)
[2016-10-25 06:43] LABS: Anisocytosis Slight; Basophils % (A) 0 %; CH 27.3; CHCM 31.3; Eosinophils % (A) 0 %; HCT 34.3 % (34.0-46.0); HDW 3.21; HGB 10.4 gm/dL (11.4-16.0); Hypochromasia Slight; Luc # (Auto) 0.25; Luc % (Auto) 2; Lymphocytes # (A) 0.9 k/uL (1.0-4.8); Lymphocytes % (A) 8 %; MCH 26.4 pg (25.0-35.0); MCHC 30.2 g/dL (31.0-37.0); MCV 87.5 fL (80.0-100.0); Mean Platelet Volume 8.3; Monocytes # (A) 0.6 k/uL (0-1.0); Monocytes % (A) 5 %; Neutrophils # (A) 9.2 k/uL (1.3-7.7); Neutrophils % (A) 84 %; RBC 3.92 m/uL (3.80-5.40); RDW 16.8 % (11.5-15.5); WBC 10.9 k/uL (3.8-10.6); WBC (Perox) 11.19
[2016-10-25 06:56] LABS: Anion Gap 6 mmol/L; Blood Urea Nitrogen 25 mg/dL (7-17); Calcium 8.8 mg/dL (8.4-10.2); Carbon Dioxide 24 mmol/L (22-30); Chloride 106 mmol/L (98-107); Glucose 110 mg/dL (74-99); Non-African American GFR(MDRD) >60 (>60 ml/min/1.73 sqM); Sodium 136 mmol/L (137-145)
[2016-10-25] MEDS: TIOTROPIUM 18 MCG/PUFF INHALER INHALATION SCH (07:58)
[2016-10-25] MEDS: SYMBICORT 160-4.5 MCG INHALER INHALATION SCH ×2 (07:58→19:54)
[2016-10-25] MEDS: FUROSEMIDE 40 MG TAB PO SCH ×2 (08:47→23:01)
[2016-10-25] MEDS: HEPARIN SODIUM,PORCINE 5,000 UNIT/ML 1 ML VIAL SQ SCH ×2 (08:47→17:27)
[2016-10-25] MEDS: METOPROLOL TARTRATE 25 MG TAB PO SCH ×2 (08:48→23:02)
[2016-10-25] MEDS: DIGOXIN 125 MCG TAB PO SCH (08:48)
[2016-10-25] MEDS: DILTIAZEM CD 120 MG CAP.ER.24H PO SCH ×2 (08:48→08:52)
[2016-10-25] MEDS: SERTRALINE 100 MG TAB PO SCH (08:48)
[2016-10-25] MEDS: PIPERACILLIN-TAZOBACTAM 3.375 GM in DEXTROSE/WATER 1 50ML.BAG IVPB SCH ×2 (08:52→17:27)
--- NOTE | 2016-10-25 09:08 | P.PN ---
Vik Grewal is a 65-year-old white female well-known to me from the practice. She's currently been living at [facility]. Her previous massage operator, her nephew Maxwell, and his , were unable to care for adequately at home. She has a known history of underlying dementia. She's been hospitalized multiple times in the past for a variety of conditions. Most recently she was hospitalized for atrial fibrillation with RVR. She has a long-standing history of unrepaired abdominal hernia with large pedunculated mass. This had gotten slightly larger and increased in pain just recently. He is always refused any treatment or evaluation of this mass. A CT scan done of this showed a seroma or hematoma to the area. He had been treated at [facility] and more recently in the wound center for a ulcer to the right lateral abdomen. She also developed one now to the left lateral abdomen. He was sent to the emergency room and the CT was done. She was sent to Dr. Claudio Paul for an outpatient visit. After reviewing the films, and her pain level, he felt it was best that she be admitted. Her Francine is currently on hold for possible seroma drainage via interventional radiology. 03/04/2017: Patient is confused, she is status post incision and drainage of approximately 4 L and 20 pounds for the mass. Her abdomen is much less distended now. She is not able answer my questions at this time. Objective - Vital Signs Vital signs: Vital Signs Temp 98.4 F 10/25/16 08:44 Pulse 97 10/25/16 08:44 Resp 16 10/25/16 08:44 BP 123/71 10/25/16 08:44 Pulse Ox 96 10/25/16 08:44 Intake & Output 10/24/16 10/25/16 10/25/16 18:59 06:59 18:59 Intake Total 1450 1200 Output Total 100 1000 Balance 1350 200 Intake: IV 1450 1200 Lactated Ringers 1,000 ml 1200 @ 100 mls/hr IV .Q10H [facility] Rx#:[id number] Output: Drainage 50 Left Abdomen 30 Right Abdomen 20 Urine 950 Straight 950 Estimated Blood Loss 100 - Exam GENERAL: conFused and somnolent She looks older than her stated age of 65. HEAD: Atraumatic, normocephalic. NECK: Normal range of motion, supple without lymphadenopathy or JVD, no thyromegaly LUNGS: Breath sounds coarse to auscultation bilaterally and equal. No wheezes rales or rhonchi. HEART: irregular rate and rhythm without murmurs, rubs or gallops.S1S2 Normal ABDOMEN: Soft, a [place] drain is in place. The distention is much improved. Positive bowel sounds EXTREMITIES: Normal range of motion, no pitting or edema. No clubbing or cyanosis. NEUROLOGICAL: Cranial nerves II through XII grossly intact. Normal speech, PSYCH: Normal mood, normal affect. SKIN: Is evidence of skin excision. Dressings are clean dry and intact - Labs CBC & Chem 7: 10/25/16 06:05 10/25/16 06:05 Labs: Abnormal Lab Results - Last 24 Hours (Table) 10/24/16 10/25/16 10/25/16 Range/Units 17:35 03:20 06:05 WBC 10.9 H (3.8-10.6) k/uL Hgb 10.4 L (11.4-16.0) gm/dL MCHC 30.2 L (31.0-37.0) g/dL RDW 16.8 H (11.5-15.5) % Neutrophils # 9.2 H (1.3-7.7) k/uL Lymphocytes # 0.9 L (1.0-4.8) k/uL Sodium (137-145) mmol/L BUN (7-17) mg/dL Glucose (74-99) mg/dL POC Glucose (mg/dL) 115 H 131 H (75-99) mg/dL 10/25/16 10/25/16 Range/Units 06:05 06:12 WBC (3.8-10.6) k/uL Hgb (11.4-16.0) gm/dL MCHC (31.0-37.0) g/dL RDW (11.5-15.5) % Neutrophils # (1.3-7.7) k/uL Lymphocytes # (1.0-4.8) k/uL Sodium 136 L (137-145) mmol/L BUN 25 H (7-17) mg/dL Glucose 110 H (74-99) mg/dL POC Glucose (mg/dL) 121 H (75-99) mg/dL Microbiology - Last 24 Hours (Table) 10/24/16 16:38 Gram Stain - Preliminary Abdomen Tissue Culture - Preliminary 10/24/16 16:38 Gram Stain - Preliminary Abdomen Wound Culture - Preliminary 10/24/16 16:38 Anaerobic Culture - Preliminary Tissue - Abdominal Wall 10/24/16 16:38 Anaerobic Culture - Preliminary Abdomen Assessment and Plan Plan: Subcutaneous mass FROM seroma or hematoma in the abdomen causing increased pain: : s/p incision and drainage of this mass. Stage 3 pressure ulcer bilateral right and left abdomen: These are most likely worse exacerbated by the seroma, and her immobility, recent hospitalization, dressings are clean dry and intact. Dr. Parsons excised some excess skin Atrial fibrillation: Her anticoagulation is on hold for interventional radiology. Continue her digoxin, metoprolol, and diltiazem. Diastolic congestive heart failure: As above Insulin dependent diabetes mellitus: I will hold her 70/30 for upcoming procedure. Continue Accu-Cheks before meals and at bedtime and a Humalog scale. Asthma/COPD: She'll continue on her Singulair, Symbicort, Spiriva, and will add albuterol updrafts as needed. Hyperlipidemia: She can continue on her atorvastatin. Dementia: I will restart her on Aricept 5 mg daily at this time. Anxiety: We will hold her Klonopin at this time. cont zoloft GI prophylaxis: Continue on famotidine. DVT prophylaxis: Currently being held for possible upcoming interventional radiology. I'll continue to follow her with you,
[2016-10-25] MEDS: LORazepam 2 MG/ML SYRINGE IV PRN (11:09)
--- NOTE | 2016-10-25 11:36 | P.PN ---
Progress Note - Text Patient resting comfortably in bed. She underwent incision and drainage of a abdominal wall seroma with a small panniculectomy. Patient has a wound VAC in place. She has no complaints of pain. On exam her abdomen soft. Wound VAC is in place. There is no evidence of any hemorrhage. The area status post debridement abdominal wall. Patient will continue wound VAC therapy.
[2016-10-25 11:56] LABS: Glucose,Whole Blood 149 mg/dL (75-99)
[2016-10-25] MEDS: FOLIC ACID 1 MG TAB PO SCH (12:59)
[2016-10-25 16:51] LABS: Glucose,Whole Blood 138 mg/dL (75-99)
[2016-10-25] MEDS: ATORVASTATIN 10 MG TAB PO SCH (22:59)
[2016-10-25] MEDS: DONEPEZIL 5 MG TAB PO SCH (23:01)
[2016-10-25] MEDS: FAMOTIDINE 20 MG TAB PO SCH (23:01)
[2016-10-25] MEDS: FERROUS SULFATE 325 MG TAB PO SCH (23:01)
[2016-10-25] MEDS: MONTELUKAST 10 MG TAB PO SCH (23:02)
[2016-10-26 00:05] LABS: Glucose,Whole Blood 154 mg/dL (75-99)
[2016-10-26] MEDS: PIPERACILLIN-TAZOBACTAM 3.375 GM in DEXTROSE/WATER 1 50ML.BAG IVPB SCH ×3 (00:29→15:56)
[2016-10-26] MEDS: HEPARIN SODIUM,PORCINE 5,000 UNIT/ML 1 ML VIAL SQ SCH ×3 (00:29→15:57)
[2016-10-26] MEDS: INSULIN LISPRO (humaLOG) 300 UNIT/3 ML VIAL SQ SCH ×4 (00:30→18:04)
[2016-10-26 06:03] LABS: Glucose,Whole Blood 130 mg/dL (75-99)
[2016-10-26] MEDS: MORPHINE SULFATE 2 MG/ML SYRINGE IV PRN ×3 (06:40→21:41)
[2016-10-26 06:54] LABS: Anisocytosis Slight; Basophils # (A) 0.1 k/uL (0-0.2); Basophils % (A) 1 %; CH 27.2; CHCM 30.9; Eosinophils # (A) 0.2 k/uL (0-0.7); Eosinophils % (A) 3 %; HCT 31.6 % (34.0-46.0); HDW 3.15; HGB 9.5 gm/dL (11.4-16.0); Hypochromasia Moderate; Luc % (Auto) 3; Lymphocytes % (A) 13 %; MCH 26.5 pg (25.0-35.0); MCV 88.3 fL (80.0-100.0); Mean Platelet Volume 8.2; Monocytes # (A) 0.6 k/uL (0-1.0); Monocytes % (A) 7 %; Neutrophils # (A) 5.7 k/uL (1.3-7.7); Neutrophils % (A) 74 %; RBC 3.58 m/uL (3.80-5.40); RDW 16.8 % (11.5-15.5); WBC 7.7 k/uL (3.8-10.6); WBC (Perox) 7.95
[2016-10-26 07:09] LABS: Anion Gap 6 mmol/L; Blood Urea Nitrogen 23 mg/dL (7-17); Calcium 8.9 mg/dL (8.4-10.2); Carbon Dioxide 28 mmol/L (22-30); Chloride 107 mmol/L (98-107); Glucose 124 mg/dL (74-99); Non-African American GFR(MDRD) >60 (>60 ml/min/1.73 sqM); Sodium 141 mmol/L (137-145)
[2016-10-26] MEDS: TIOTROPIUM 18 MCG/PUFF INHALER INHALATION SCH (07:30)
[2016-10-26] MEDS: SYMBICORT 160-4.5 MCG INHALER INHALATION SCH ×2 (07:31→20:12)
[2016-10-26] MEDS: DIGOXIN 125 MCG TAB PO SCH (08:01)
[2016-10-26] MEDS: METOPROLOL TARTRATE 25 MG TAB PO SCH ×2 (08:01→21:37)
[2016-10-26] MEDS: DILTIAZEM CD 120 MG CAP.ER.24H PO SCH (08:01)
[2016-10-26] MEDS: SERTRALINE 100 MG TAB PO SCH (08:01)
[2016-10-26] MEDS: FUROSEMIDE 40 MG TAB PO SCH ×2 (08:01→21:37)
[2016-10-26] MEDS ORDERED: Potassium Replacement Protocol 1 EACH MISC MISCELLANE PRN ×2 (08:49→15:48)
[2016-10-26] MEDS: POTASSIUM CHLORIDE 10 MEQ, LIDOCAINE 2% INJ 10 MG in SODIUM CHLORIDE 0.9% 100 ML IV SCH ×2 (10:12→11:48)
[2016-10-26 11:44] LABS: Glucose,Whole Blood 128 mg/dL (75-99)
--- NOTE | 2016-10-26 12:15 | P.PN ---
Progress Note - Text The patient resting comfortably in bed. She has no complaints. On exam her vital signs are stable. Her abdomen soft. Wound VAC is in place. There is known to any inflammatory changes. White count 7.7, hemoglobin is 9.5 Status post debridement abdominal wall with placed a wound VAC. Patient is doing well. Dr. Parsons will see her in the a.m.
[2016-10-26] MEDS: LACTATED RINGERS 1,000 ML IV SCH ×2 (14:35→21:31)
[2016-10-26] MEDS: FOLIC ACID 1 MG TAB PO SCH (16:07)
[2016-10-26] MEDS: POTASSIUM CHLORIDE 10 MEQ, LIDOCAINE 2% INJ 10 MG in SODIUM CHLORIDE 0.9% 100 ML IVPB SCH ×2 (16:12→18:05)
[2016-10-26 17:30] LABS: Glucose,Whole Blood 128 mg/dL (75-99)
[2016-10-26] MEDS: DONEPEZIL 5 MG TAB PO SCH (21:37)
[2016-10-26] MEDS: FERROUS SULFATE 325 MG TAB PO SCH (21:37)
[2016-10-26] MEDS: FAMOTIDINE 20 MG TAB PO SCH (21:38)
[2016-10-26] MEDS: ATORVASTATIN 10 MG TAB PO SCH (21:38)
[2016-10-26] MEDS: MONTELUKAST 10 MG TAB PO SCH (21:38)
[2016-10-27 00:24] LABS: Glucose,Whole Blood 112 mg/dL (75-99)
[2016-10-27] MEDS: INSULIN LISPRO (humaLOG) 300 UNIT/3 ML VIAL SQ SCH ×4 (00:34→18:05)
[2016-10-27] MEDS: PIPERACILLIN-TAZOBACTAM 3.375 GM in DEXTROSE/WATER 1 50ML.BAG IVPB SCH ×3 (00:35→16:46)
[2016-10-27] MEDS: HEPARIN SODIUM,PORCINE 5,000 UNIT/ML 1 ML VIAL SQ SCH ×3 (00:35→16:46)
[2016-10-27 06:17] LABS: Glucose,Whole Blood 125 mg/dL (75-99)
[2016-10-27 06:56] LABS: Glucose,Whole Blood 91 mg/dL (75-99)
[2016-10-27] MEDS: LACTATED RINGERS 1,000 ML IV SCH ×2 (07:00→14:15)
[2016-10-27 07:17] LABS: Anisocytosis Slight; Basophils # (A) 0.1 k/uL (0-0.2); Basophils % (A) 1 %; CH 27.2; CHCM 30.6; Eosinophils # (A) 0.3 k/uL (0-0.7); Eosinophils % (A) 6 %; HCT 30.9 % (34.0-46.0); HDW 3.28; HGB 9.2 gm/dL (11.4-16.0); Hypochromasia Marked; Luc % (Auto) 4; Lymphocytes # (A) 0.9 k/uL (1.0-4.8); Lymphocytes % (A) 16 %; MCH 26.7 pg (25.0-35.0); MCHC 29.8 g/dL (31.0-37.0); MCV 89.4 fL (80.0-100.0); Mean Platelet Volume 8.2; Monocytes # (A) 0.4 k/uL (0-1.0); Monocytes % (A) 7 %; Neutrophils # (A) 3.8 k/uL (1.3-7.7); Neutrophils % (A) 67 %; RBC 3.46 m/uL (3.80-5.40); RDW 16.8 % (11.5-15.5); WBC 5.7 k/uL (3.8-10.6); WBC (Perox) 6.07
[2016-10-27] MEDS: TIOTROPIUM 18 MCG/PUFF INHALER INHALATION SCH (07:34)
[2016-10-27] MEDS: SYMBICORT 160-4.5 MCG INHALER INHALATION SCH ×2 (07:36→19:15)
[2016-10-27 07:38] LABS: Anion Gap 5 mmol/L; Blood Urea Nitrogen 20 mg/dL (7-17); Calcium 8.6 mg/dL (8.4-10.2); Carbon Dioxide 29 mmol/L (22-30); Chloride 108 mmol/L (98-107); Glucose 84 mg/dL (74-99); Non-African American GFR(MDRD) >60 (>60 ml/min/1.73 sqM); Potassium 3.2 mmol/L (3.5-5.1); Sodium 142 mmol/L (137-145)
[2016-10-27] MEDS: METOPROLOL TARTRATE 25 MG TAB PO SCH ×2 (08:39→20:00)
[2016-10-27] MEDS: FUROSEMIDE 40 MG TAB PO SCH ×2 (08:39→20:01)
[2016-10-27] MEDS: DIGOXIN 125 MCG TAB PO SCH (08:39)
[2016-10-27] MEDS: DILTIAZEM CD 120 MG CAP.ER.24H PO SCH (08:39)
[2016-10-27] MEDS: POTASSIUM CHLORIDE ER 20 MEQ TAB.ER PO SCH ×4 (09:28→16:46)
[2016-10-27] MEDS: SERTRALINE 100 MG TAB PO SCH (09:28)
[2016-10-27] MEDS: FOLIC ACID 1 MG TAB PO SCH (11:06)
[2016-10-27 11:38] LABS: Glucose,Whole Blood 101 mg/dL (75-99)
--- NOTE | 2016-10-27 12:16 | CDI ---
In responding to this query, please exercise your independent professional judgment. The [facility] Coding Staff and Clinical Documentation Specialists appreciate your assistance in clarifying documentation, maintaining compliance with coding guidelines, accurately documenting patients condition and capturing severity of illness. The fact that a question is asked does not imply that any particular answer is desired or expected. Communication forms are a method of clarifying documentation and are not made part of the Legal Health Record. Thank you in advance for your clarification. Last Revision, May 2016 Mi Quintanilla [address] [place] [address] Documentation Clarification Form Date: 10/27/2016 12:04:00 PM From: Raine Gauthier CCS, CCDS Admit Date: 10/25/2016 1:22:00 PM Patient Name: Eleni Moses Visit Number: [id number] Discharge Date: Dr. John Taylor: CHF is documented in the medical management consult as diastolic congestive heart failure (as above), no other acuity found in the documentation. Home Lasix. History/Risk Factors: Stage III pressure ulcer bilateral right & left abdomen, chronic atrial fibrillation, diastolic CHF, IDDM, asthma & COPD, hyperlipidemia , dementia. Clinical Indicators: Lower abdominal wall mass with necrotic skin and pain, large pannus. Area suspicious for possible seroma or hematoma. VS: BP 93/58, PO 100 2Lnc Treatment: IV Morhpine, IV fluids, IV Levaquin, IV Narcan, INH, Insulin sl sc. Consults: Surgery In your professional opinion, can you please clarify the acuity and type of CHF if known? Diastolic Heart Failure: Acute Chronic Acute on Chronic Unable to determine Other, please specify Please document in your progress notes and discharge summary in order to capture severity of illness and risk of mortality. Include clinical findings that support your diagnosis. FYI: Press F11 to launch patient chart. AYAD
--- NOTE | 2016-10-27 12:32 | CDI ---
In responding to this query, please exercise your independent professional judgment. The [facility] Coding Staff and Clinical Documentation Specialists appreciate your assistance in clarifying documentation, maintaining compliance with coding guidelines, accurately documenting patients condition and capturing severity of illness. The fact that a question is asked does not imply that any particular answer is desired or expected. Communication forms are a method of clarifying documentation and are not made part of the Legal Health Record. Thank you in advance for your clarification. Last Revision, January 2015 Mi Quintanilla [address] [facility] [place] [address] Documentation Clarification Form Date: 10/27/2016 12:17:00 PM From: Raine Gauthier CCS, CCDS Admit Date: 10/25/2016 1:22:00 PM Patient Name: Eleni Moses Visit Number: [id number] Discharge Date: Dr. Joshua Parsons: Per your operative note, a debridement was performed on abdomen wall for a large mass and ischemic necrosis to the skin. A Panniculectomy was also done. Elliptical incision made encompassing the mass extending to the flank bilaterally. Dissection through the saphenous tissues. Central portion of dissection measuring [id number], posterior wall, debrided w/adherent old blood evacuated. History/Risk Factors: Known abdominal wall seroma or hematoma. Clinical Indicators: Per the medical management 10/25 progress notes: Dr. Parsons excised some excess skin Treatment: Status post I&D, Panniculectomy and debridement of skin & tissue. Five elements required for accurate and compliant documentation of a debridement : 1. Technique used (e.g., excisional, excised, cutting, etc.) 2. Instrument(s) used (e.g., scalpel, curette, etc.) 3. Nature of tissue removed (e.g., necrotic, devitalized tissues, nonviable tissue, etc.) 4. Appearance, size of the wound (e.g., down to fresh bleeding tissue, 7cm x 10cm, etc.) 5. Depth of the debridement* (e.g., skin, subcutaneous tissue, fascia, muscle, bone, etc.) In order to capture the severity of condition and code the appropriate procedure could you please document the following: Excisional debridement (the removal of necrotic, devitalized tissue or slough by means of cutting away of tissue) Non-excisional debridement (the removal of necrotic, devitalized tissue or slough by means of flushing, brushing, or washing. (Irrigation) Other; with explanation for clinical findings Unable to determine (no explanation for clinical findings) Please document in your progress notes and discharge summary in order to capture severity of illness and risk of mortality. Include clinical findings that support your diagnosis. FYI: Press F11 to launch patient chart. AYAD
[2016-10-27] MEDS: MORPHINE SULFATE 2 MG/ML SYRINGE IV PRN ×2 (15:47→20:01)
[2016-10-27 17:16] LABS: Glucose,Whole Blood 93 mg/dL (75-99)
--- NOTE | 2016-10-27 17:37 | P.PN ---
Subjective Principal diagnosis: Lower abdominal wall mass, seroma Patient currently resting comfortably in bed without complaints. Vital signs are stable patient is currently afebrile. Abdomen is soft wound VAC is in place white count is 7.7 hemoglobin is 9.5 Objective - Vital Signs Vital signs: Vital Signs Temp 97.2 F L 10/27/16 15:33 Pulse 84 10/27/16 15:33 Resp 16 10/26/16 20:12 BP 106/87 10/27/16 15:33 Pulse Ox 97 10/27/16 15:33 Intake & Output 10/26/16 10/27/16 10/27/16 18:59 06:59 18:59 Intake Total 1989 1250 Output Total 20 Balance 1989 1250 -20 Intake: IV 800 Lactated Ringers 1,000 ml 800 @ 100 mls/hr IV .Q10H [facility] Rx#:[id number] Intake, IV Titration 200 1250 Amount Piperacillin-Tazobactam 3 50 .375 gm In Dextrose/Water 1 50ml.bag @ 12.5 mls/hr IVPB Q8HR [facility] Rx#: [id number] Potassium Chloride 10 meq 200 Lidocaine 2% Inj 10 mg In Sodium Chloride 0.9% 100 ml @ 100 mls/hr IV Q1HR [facility] Rx#:[id number] Sodium Chloride 0.9% 1, 1200 000 ml As IV .[facility] Rx#:[id number] Oral 990 Output: Drainage 20 Left Abdomen 20 Other: Voiding Method Diaper Diaper Incontinent Incontinent # Voids 2 1 # Bowel Movements 2 - Exam General: [Patient awake, alert and oriented times 3. Patient in no acute distress.] HEENT: [PERRL. EOMI. No pharyngeal erythema or exudate.] Neck: [No adenopathy.] Cardiac: [Heart regular in rate and rhythm. No S3. No S4. No clicks, rubs. No murmur.] Lungs: [Clear to auscultation bilaterally.] Abdomen: [No mass. No organomegaly. Bowel sounds presnt and normoactive in all 4 quadrants.] Abdominal distention is markedly improved Extremes: [No edema no cyanosis no claudication normal pulses] : [] Musculoskeletal: [No joint erythema, edema or tenderness.] Skin: [No rash.] Neurologic: [No lateralizing deficits. CN II - XII grossly intact.] Lymphatic: [No adenopathy.] - Labs CBC & Chem 7: 10/27/16 06:50 10/27/16 11:58 Labs: Abnormal Lab Results - Last 24 Hours (Table) 10/26/16 10/27/16 10/27/16 Range/Units 17:04 00:22 06:14 RBC (3.80-5.40) m/uL Hgb (11.4-16.0) gm/dL Hct (34.0-46.0) % MCHC (31.0-37.0) g/dL RDW (11.5-15.5) % Lymphocytes # (1.0-4.8) k/uL Potassium (3.5-5.1) mmol/L Chloride (98-107) mmol/L BUN (7-17) mg/dL POC Glucose (mg/dL) 128 H 112 H 125 H (75-99) mg/dL 10/27/16 10/27/16 10/27/16 Range/Units 06:47 06:50 11:37 RBC 3.46 L (3.80-5.40) m/uL Hgb 9.2 L (11.4-16.0) gm/dL Hct 30.9 L (34.0-46.0) % MCHC 29.8 L (31.0-37.0) g/dL RDW 16.8 H (11.5-15.5) % Lymphocytes # 0.9 L (1.0-4.8) k/uL Potassium 3.2 L (3.5-5.1) mmol/L Chloride 108 H (98-107) mmol/L BUN 20 H (7-17) mg/dL POC Glucose (mg/dL) 101 H (75-99) mg/dL 10/27/16 Range/Units 11:58 RBC (3.80-5.40) m/uL Hgb (11.4-16.0) gm/dL Hct (34.0-46.0) % MCHC (31.0-37.0) g/dL RDW (11.5-15.5) % Lymphocytes # (1.0-4.8) k/uL Potassium 3.2 L (3.5-5.1) mmol/L Chloride (98-107) mmol/L BUN (7-17) mg/dL POC Glucose (mg/dL) (75-99) mg/dL Microbiology - Last 24 Hours (Table) 10/24/16 16:38 Anaerobic Culture - Preliminary Tissue - Abdominal Wall 10/24/16 16:38 Gram Stain - Preliminary Abdomen Wound Culture - Preliminary Gram Neg Bacilli 10/24/16 16:38 Gram Stain - Final Abdomen Tissue Culture - Preliminary Proteus mirabilis Assessment and Plan Plan: Assessment and plan Subcutaneous mass seroma in the abdomen causing increased pain status post pain in the mass Atrial fibrillation, anticoagulation is on hold continue digoxin and metoprolol and diltiazem Asthma COPD, she'll continue on Singulair and Symbicort and Spiriva albuterol updrafts as needed Hyperlipidemia; continue atorvastatin Dementia; patient started on 5 mg of Aricept DVT prophylaxis currently being held for interventional radiology Time with Patient: Greater than 30
--- NOTE | 2016-10-27 18:07 | P.PN ---
Subjective Principal diagnosis: Abdominal wall mass Patient remains confused. She is afebrile. She is tolerating her diet. Pains seems to be well-controlled. Wound VAC remains intact. Culture showing Proteus thus far. Objective - Vital Signs Vital signs: Vital Signs Temp 97.2 F L 10/27/16 15:33 Pulse 84 10/27/16 15:33 Resp 16 10/26/16 20:12 BP 106/87 10/27/16 15:33 Pulse Ox 97 10/27/16 15:33 Intake & Output 10/26/16 10/27/16 10/27/16 18:59 06:59 18:59 Intake Total 1989 1250 Output Total 20 Balance 1989 1250 -20 Intake: IV 800 Lactated Ringers 1,000 ml 800 @ 100 mls/hr IV .Q10H [facility] Rx#:[id number] Intake, IV Titration 200 1250 Amount Piperacillin-Tazobactam 3 50 .375 gm In Dextrose/Water 1 50ml.bag @ 12.5 mls/hr IVPB Q8HR [facility] Rx#: [id number] Potassium Chloride 10 meq 200 Lidocaine 2% Inj 10 mg In Sodium Chloride 0.9% 100 ml @ 100 mls/hr IV Q1HR [facility] Rx#:[id number] Sodium Chloride 0.9% 1, 1200 000 ml As IV .[facility] Rx#:[id number] Oral 990 Output: Drainage 20 Left Abdomen 20 Other: Voiding Method Diaper Diaper Incontinent Incontinent # Voids 2 1 # Bowel Movements 2 - Exam Abdomen: Soft, nondistended, incision clean with wound VAC intact - Labs CBC & Chem 7: 10/27/16 06:50 10/27/16 11:58 Labs: Abnormal Lab Results - Last 24 Hours (Table) 10/27/16 10/27/16 10/27/16 Range/Units 00:22 06:14 06:47 RBC (3.80-5.40) m/uL Hgb (11.4-16.0) gm/dL Hct (34.0-46.0) % MCHC (31.0-37.0) g/dL RDW (11.5-15.5) % Lymphocytes # (1.0-4.8) k/uL Potassium 3.2 L (3.5-5.1) mmol/L Chloride 108 H (98-107) mmol/L BUN 20 H (7-17) mg/dL POC Glucose (mg/dL) 112 H 125 H (75-99) mg/dL 10/27/16 10/27/16 10/27/16 Range/Units 06:50 11:37 11:58 RBC 3.46 L (3.80-5.40) m/uL Hgb 9.2 L (11.4-16.0) gm/dL Hct 30.9 L (34.0-46.0) % MCHC 29.8 L (31.0-37.0) g/dL RDW 16.8 H (11.5-15.5) % Lymphocytes # 0.9 L (1.0-4.8) k/uL Potassium 3.2 L (3.5-5.1) mmol/L Chloride (98-107) mmol/L BUN (7-17) mg/dL POC Glucose (mg/dL) 101 H (75-99) mg/dL Microbiology - Last 24 Hours (Table) 10/24/16 16:38 Gram Stain - Final Abdomen Wound Culture - Final Proteus mirabilis 10/24/16 16:38 Anaerobic Culture - Preliminary Tissue - Abdominal Wall 10/24/16 16:38 Gram Stain - Final Abdomen Tissue Culture - Preliminary Proteus mirabilis Assessment and Plan (1) Abdominal wall mass of suprapubic region Narrative/Plan: We'll consult infectious disease. Change wound VAC today. Gradually increase activity. Continue diet as tolerated. Status: Acute
[2016-10-27] MEDS: DONEPEZIL 5 MG TAB PO SCH (20:01)
[2016-10-27] MEDS: FAMOTIDINE 20 MG TAB PO SCH (20:01)
[2016-10-27] MEDS: FERROUS SULFATE 325 MG TAB PO SCH (20:01)
[2016-10-27] MEDS: ATORVASTATIN 10 MG TAB PO SCH (20:01)
[2016-10-27] MEDS: MONTELUKAST 10 MG TAB PO SCH (20:01)
[2016-10-27 20:20] LABS: Glucose,Whole Blood 111 mg/dL (75-99)
[2016-10-28] MEDS: MORPHINE SULFATE 2 MG/ML SYRINGE IV PRN ×3 (00:37→19:34)
[2016-10-28] MEDS: LACTATED RINGERS 1,000 ML IV SCH ×2 (00:39→11:54)
[2016-10-28] MEDS: PIPERACILLIN-TAZOBACTAM 3.375 GM in DEXTROSE/WATER 1 50ML.BAG IVPB SCH ×4 (00:42→23:11)
[2016-10-28] MEDS: POTASSIUM CHLORIDE 10 MEQ, LIDOCAINE 2% INJ 10 MG in SODIUM CHLORIDE 0.9% 100 ML IVPB SCH ×2 (00:42→01:56)
[2016-10-28] MEDS: HEPARIN SODIUM,PORCINE 5,000 UNIT/ML 1 ML VIAL SQ SCH ×4 (00:45→23:11)
[2016-10-28] MEDS: TIOTROPIUM 18 MCG/PUFF INHALER INHALATION SCH (07:44)
[2016-10-28] MEDS: SYMBICORT 160-4.5 MCG INHALER INHALATION SCH ×2 (07:44→20:59)
[2016-10-28 07:50] LABS: Glucose,Whole Blood 93 mg/dL (75-99)
[2016-10-28 08:14] LABS: Anion Gap 7 mmol/L; Blood Urea Nitrogen 17 mg/dL (7-17); Calcium 8.6 mg/dL (8.4-10.2); Carbon Dioxide 24 mmol/L (22-30); Chloride 107 mmol/L (98-107); Glucose 79 mg/dL (74-99); Non-African American GFR(MDRD) >60 (>60 ml/min/1.73 sqM); Potassium 3.6 mmol/L (3.5-5.1); Sodium 138 mmol/L (137-145)
[2016-10-28 08:30] LABS: Anisocytosis Slight; Basophils # (A) 0.1 k/uL (0-0.2); Basophils % (A) 1 %; CHCM 30.4; Eosinophils # (A) 0.3 k/uL (0-0.7); Eosinophils % (A) 6 %; HCT 32.8 % (34.0-46.0); HDW 3.22; HGB 9.9 gm/dL (11.4-16.0); Hypochromasia Marked; Luc # (Auto) 0.15; Luc % (Auto) 3; Lymphocytes # (A) 0.9 k/uL (1.0-4.8); Lymphocytes % (A) 16 %; MCHC 30.3 g/dL (31.0-37.0); MCV 89.1 fL (80.0-100.0); Monocytes # (A) 0.4 k/uL (0-1.0); Monocytes % (A) 8 %; Neutrophils # (A) 3.4 k/uL (1.3-7.7); Neutrophils % (A) 66 %; RBC 3.68 m/uL (3.80-5.40); RDW 16.7 % (11.5-15.5); WBC 5.2 k/uL (3.8-10.6); WBC (Perox) 5.31
--- NOTE | 2016-10-28 08:59 | P.CONS ---
History of Present Illness - Reason for Consult Consult date: 10/28/16 Abdominal wall infected hematoma - History of Present Illness This is a 65-year-old female with long-standing history of obesity, asthma, COPD, coronary artery disease, chronic atrial fibrillation, dementia currently residing at [facility]. Patient had a recent hospitalization October 09 through October 14 and she was treated for acute renal failure and atrial fibrillation with RVR. At that time, she was seen by ID services for a skin ulcer on the abdominal wall. Local wound care was therahoney and a follow-up in the [facility] was planned. Patient was then brought into [facility] emergency center on October 19 for evaluation of a painful wound in the abdomen, fever. CAT scan of the abdomen show a large low-density mass in the subcutaneous tissues of the left side. This is not a simple cyst and could relate to a chronic hematoma or seroma. She was placed on Levaquin and discharged back to the halfway. Patient then had an appointment with Dr. Parsons on October 22 was sent into the emergency center for evaluation and admission. On October 24, Dr. Parsons took the patient to OR for I&D of abdominal wall fluid collection with panniculectomy and wound VAC placement. Patient remains with wound VAC in place. She has been afebrile with white count of 5.7. She has been on Levaquin initially and then switched to Zosyn. Her wound cultures are positive for Proteus mirabilis resistant to fluoroquinolones and tetracycline. Plan is for patient to go back to [facility] today. 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, abdominal mass History of Any Multi-Drug Resistant Organisms: None Reported Past Surgical History: Breast Surgery, Hernia Repair Additional Past Surgical History / Comment(s): cataracts Past Anesthesia/Blood Transfusion Reactions: No Reported Reaction Past Psychological History: Anxiety Smoking Status: Never smoker - Past Family History Mother Family Medical History: CVA/TIA Father Additional Family Medical History / Comment(s): WAS INJURED IN [place], also had hx tb but from complications of his injuries Brother(s) Additional Family Medical History / Comment(s): at age 2 years 10months tb Medications and Allergies Home Medications Medication Instructions Recorded Confirmed Type Montelukast Sodium [Singulair] 10 mg PO HS@199910/10/15 10/22/16 History Potassium Chloride ER [K-Dur 20] 20 meq PO DAILY 03/04/16 10/22/16 History Budesonide/Formoterol Fumarate 2 puff INHALATION RT-BID@05/13/16 10/22/16 History [Symbicort 160-4.5 Mcg Inhaler] Acetaminophen [Tylenol] 650 mg PO Q4H PRN 10/09/16 10/22/16 History Atorvastatin [Lipitor] 10 mg PO HS@199910/09/16 10/22/16 History Famotidine [Pepcid] 20 mg PO HS@199910/09/16 10/22/16 History Ferrous Sulfate [Iron (65 MG 325 mg PO HS 10/09/16 10/22/16 History Elemental)] Folic Acid 1 mg PO DAILY 10/09/16 10/22/16 History Furosemide [Lasix] 40 mg PO BID 10/09/16 10/22/16 History Ipratropium-Albuterol Nebulize 3 ml INHALATION RT-QID@,,,10/09/1610/22 History [Duoneb 0.5 mg-3 mg/3 ml Soln] Multivitamins, Thera [Multivitamin 1 tab PO HS 10/09/16 10/22/16 History (formulary)] Rivaroxaban [Xarelto] 20 mg PO HS@199910/09/16 10/22/16 History Tiotropium 18 Mcg/Puff [Spiriva] 1 cap INHALATION RT-DAILY 10/09/16 10/22/16 History Magnesium Hydroxide [Milk of 2,400 mg PO Q72H PRN 10/19/16 10/22/16 History Magnesia] guaiFENesin [Mucinex] 600 mg PO BID@799,199910/19/16 10/22/16 History Digoxin [Lanoxin] 125 mcg PO HS 10/22/16 10/22/16 History Diltiazem Cd [Cardizem CD] 120 mg PO HS 10/22/16 10/22/16 History HYDROcodone/APAP 5-325MG [Rosie 2 tab PO Q4HR PRN 10/22/16 10/22/16 History 5-325] Allergies Allergy/AdvReac Type Severity Reaction Status Date / Time adhesive Allergy Rash/Hives Verified 10/19/16 17:07 codeine Allergy Rash/Hives Verified 10/19/16 18:00 Physical Exam Vitals: Vital Signs Temp Pulse Pulse Resp BP Pulse Ox 10/28/16 02:18 97.9 F 72 16 107/70 98 10/27/16 20:00 55 L 18 104/50 99 10/27/16 15:33 97.2 F L 84 106/87 97 Intake and Output 10/27/16 10/28/16 10/28/16 22:59 06:59 14:59 Intake Total 1250 Output Total 50 20 Balance -50 1230 Intake: Intake, IV Titration 1250 Amount Lactated Ringers 1,000 ml 1000 @ 100 mls/hr IV .Q10H SHAGUFTA Rx#:[id number] Piperacillin-Tazobactam 3 50 .375 gm In Dextrose/Water 1 50ml.bag @ 12.5 mls/hr IVPB Q8HR SHAGUFTA Rx#: [id number] Potassium Chloride 10 meq 200 Lidocaine 2% Inj 10 mg In Sodium Chloride 0.9% 100 ml @ 100 mls/hr IVPB Q1HR SHAGUFTA Rx#:[id number] Output: Drainage 50 20 Left Abdomen 30 10 Right Abdomen 20 10 Other: # Voids 2 # Bowel Movements 1 Gen: This is a morbidly obese 65-year-old female. She is in bed and appears to be comfortable. Patient does arouse to verbal stimuli but unable to answer questions as she has been sedated for combativeness from yesterday and last evening. She is able to follow simple commands. HEENT: Head is atraumatic, normocephalic. Pupils equal, round. Sclerae is anicteric. Oral mucous membranes are moist. Patient is edentulous. No thrush noted. NECK: Supple. No JVD. No lymphadenopathy. No thyromegaly. LUNGS: Clear to auscultation. No wheezes or rhonchi. No intercostal retractions. HEART: Regular rate and rhythm. No murmur. ABDOMEN: Soft. Bowel sounds are present. No masses. + tenderness. There is a wound VAC in place to the left lower abdominal wound with extension of the wound across to the right lower quadrant. The area in the right lower quadrant has leodan in place and edges are well approximated. [place] drain with serosanguineous drainage. EXTREMITIES: No pedal edema. No calf tenderness. Dorsalis pedis +2 bilaterally. NEUROLOGICAL: Patient is sleeping and awakens to verbal stimuli. Results Results: Laboratory Results WBC 5.2 k/uL (3.8-10.6) 10/28/16 07:46 RBC 3.68 m/uL (3.80-5.40) L 10/28/16 07:46 Hgb 9.9 gm/dL (11.4-16.0) L 10/28/16 07:46 Hct 32.8 % (34.0-46.0) L 10/28/16 07:46 MCV 89.1 fL (80.0-100.0) 10/28/16 07:46 MCH 27.0 pg (25.0-35.0) 10/28/16 07:46 MCHC 30.3 g/dL (31.0-37.0) L 10/28/16 07:46 RDW 16.7 % (11.5-15.5) H 10/28/16 07:46 Plt Count 295 k/uL (150-450) 10/28/16 07:46 Neutrophils % 66 % 10/28/16 07:46 Lymphocytes % 16 % 10/28/16 07:46 Monocytes % 8 % 10/28/16 07:46 Eosinophils % 6 % 10/28/16 07:46 Basophils % 1 % 10/28/16 07:46 Neutrophils # 3.4 k/uL (1.3-7.7) 10/28/16 07:46 Lymphocytes # 0.9 k/uL (1.0-4.8) L 10/28/16 07:46 Monocytes # 0.4 k/uL (0-1.0) 10/28/16 07:46 Eosinophils # 0.3 k/uL (0-0.7) 10/28/16 07:46 Basophils # 0.1 k/uL (0-0.2) 10/28/16 07:46 Hypochromasia Marked 10/28/16 07:46 Anisocytosis Slight 10/28/16 07:46 PT 13.6 sec (9.0-12.0) H 10/24/16 06:49 INR 1.4 (<1.2) H 10/24/16 06:49 APTT 33.4 sec (22.0-30.0) H 10/22/16 16:16 Sodium 138 mmol/L (137-145) 10/28/16 07:46 Potassium 3.6 mmol/L (3.5-5.1) 10/28/16 07:46 Chloride 107 mmol/L (98-107) 10/28/16 07:46 Carbon Dioxide 24 mmol/L (22-30) 10/28/16 07:46 Anion Gap 7 mmol/L 10/28/16 07:46 BUN 17 mg/dL (7-17) 10/28/16 07:46 Creatinine 0.67 mg/dL (0.52-1.04) 10/28/16 07:46 Est GFR (MDRD) Af Amer >60 (>60 ml/min/1.73 sqM) 10/28/16 07:46 Est GFR (MDRD) Non-Af >60 (>60 ml/min/1.73 sqM) 10/28/16 07:46 Glucose 79 mg/dL (74-99) 10/28/16 07:46 POC Glucose (mg/dL) 93 mg/dL (75-99) 10/28/16 07:46 POC Glu Magazine Repairer ID 10/28/16 07:[address] Glu mg/dL 131 mg/dL 10/22/16 16:16 Hemoglobin A1c 6.2 % (4.2-6.1) H 10/22/16 16:16 Calcium 8.6 mg/dL (8.4-10.2) 10/28/16 07:46 Total Bilirubin 0.6 mg/dL (0.2-1.3) 10/22/16 16:16 AST 30 U/L (14-36) 10/22/16 16:16 ALT 36 U/L (9-52) 10/22/16 16:16 Alkaline Phosphatase 129 U/L (38-126) H 10/22/16 16:16 Total Protein 5.8 g/dL (6.3-8.2) L 10/22/16 16:16 Albumin 2.8 g/dL (3.5-5.0) L 10/22/16 16:16 Digoxin 1.6 ng/mL 10/23/16 11:35 Blood Type O Positive 10/22/16 16:16 Blood Type Recheck No 10/22/16 16:16 Antibody Screen NEGATIVE 10/22/16 16:16 Spec Expiration Date 10/25/2016 - 2316 10/22/16 16:16 CBC & Chem 7: 10/28/16 07:46 10/28/16 07:46 Labs: Abnormal Lab Results - Last 24 Hours (Table) 10/27/16 10/27/16 10/27/16 Range/Units 11:37 11:58 20:19 Potassium 3.2 L (3.5-5.1) mmol/L POC Glucose (mg/dL) 101 H 111 H (75-99) mg/dL Microbiology - Last 24 Hours (Table) 10/24/16 16:38 Gram Stain - Final Abdomen Wound Culture - Final Proteus mirabilis Assessment and Plan Plan: This is a 65-year-old female who has presented with seroma of the left abdominal wall. She is status post I&D as being prepared for discharge back to [facility]. Wound cultures are positive for Proteus mirabilis. She is currently on Zosyn. Recommendations will be made for outpatient antibiotics. Continue supportive care. Further recommendations as patient progresses. The above dictated assessment and findings were discussed with Dr. Duarte. The impression and plan of care have been directed as dictated. Cici Kimble nurse practitioner acting as scribe for Dr. Duarte.
[2016-10-28] MEDS: LORazepam 2 MG/ML SYRINGE IV PRN (09:16)
[2016-10-28] MEDS: DILTIAZEM CD 120 MG CAP.ER.24H PO SCH (09:17)
[2016-10-28] MEDS: FUROSEMIDE 40 MG TAB PO SCH ×2 (09:17→20:05)
[2016-10-28] MEDS: INSULIN LISPRO (humaLOG) 300 UNIT/3 ML VIAL SQ SCH ×4 (09:18→21:38)
[2016-10-28] MEDS: SERTRALINE 100 MG TAB PO SCH (09:18)
[2016-10-28] MEDS: METOPROLOL TARTRATE 25 MG TAB PO SCH ×2 (09:18→20:05)
[2016-10-28] MEDS: DIGOXIN 125 MCG TAB PO SCH (09:18)
[2016-10-28 11:49] LABS: Glucose,Whole Blood 84 mg/dL (75-99)
--- NOTE | 2016-10-28 13:27 | P.DS ---
Providers Date of admission: 10/25/16 13:22 Expected date of discharge: 10/28/16 Attending physician: Joshua Parsons Consults: 10/22/16 17:15 Consult Physician Routine Consulting Provider: John Taylor Consult Reason/Comments: Medical Management Do you want consulting provider notified?: Already Contacted 10/23/16 15:09 Consult Physician Urgent Consulting Provider: Joshua Parsons Consult Reason/Comments: abdominal wall infection Do you want consulting provider notified?: Yes 10/27/16 18:08 Consult Physician Routine Consulting Provider: Rosalio Duarte Consult Reason/Comments: Abdominal wall infected hematoma with possible mesh Do you want consulting provider notified?: Yes, Notify in am Primary care physician: John Taylor - Discharge Diagnosis(es) (1) Abdominal wall mass of suprapubic region Patient minute of the hospital from my office with a large lower abdominal mass. This was primarily filled with fluid by CAT scan. She was taken to the operating room after discussion with radiology lead to the decision for open drainage. In the operating the patient's found have a gigantic seroma with organized hematoma and necrotic skin. A panniculectomy with wound VAC placement took place. Postoperatively the patient has had episodes of confusion but is otherwise done well. She has been on antibiotics. Consults were placed to medicine and infectious disease. Cultures have grown out Proteus from the fluid collection. Pain seems to be improving daily. Wound VAC was changed yesterday evening and appears clean. Patient is stable for discharge to [facility] at this point. She will follow-up in the office and in the wound care center post discharge. Current Visit: Yes Status: Acute Patient Condition at Discharge: Stable Plan - Discharge Summary New Discharge Prescriptions: No Action Montelukast Sodium [Singulair] 10 mg PO HS@1999 Potassium Chloride ER [K-Dur 20] 20 meq PO DAILY Insulin Aspart Protam & Aspart [NovoLOG MIX 70-30 Flexpen] 25 unit SQ DAILY Insulin Aspart Protam & Aspart [NovoLOG MIX 70-30 Flexpen] 15 unit SQ HS Budesonide/Formoterol Fumarate [Symbicort 160-4.5 Mcg Inhaler] 2 puff INHALATION RT-BID@08,20 Metoprolol Tartrate [Lopressor] 25 mg PO BID tab Sertraline [Zoloft] 100 mg PO DAILY tab traMADol HCL [Ultram] 100 mg PO Q6H PRN PRN Reason: Pain Rivaroxaban [Xarelto] 20 mg PO HS@1999 Acetaminophen [Tylenol] 650 mg PO Q4H PRN PRN Reason: Pain Tiotropium 18 Mcg/Puff [Spiriva] 1 cap INHALATION RT-DAILY Multivitamins, Thera [Multivitamin (formulary)] 1 tab PO HS Lidocaine 2% Gel [Xylocaine Jelly 2%] 1 applic TOPICAL DAILY@0800 Atorvastatin [Lipitor] 10 mg PO HS@1999 clonazePAM [KlonoPIN] 0.5 mg PO DAILY PRN PRN Reason: Seizures clonazePAM [KlonoPIN] 0.5 mg PO HS@1999 Folic Acid 1 mg PO DAILY Furosemide [Lasix] 40 mg PO BID Ferrous Sulfate [Feosol] 325 mg PO HS Famotidine [Pepcid] 20 mg PO HS@1999 Ipratropium-Albuterol Nebulize [Duoneb 0.5 mg-3 mg/3 ml Soln] 3 ml INHALATION RT-QID@,,, hydrOXYzine PAMOATE [Vistaril] 25 mg PO Q6HR PRN PRN Reason: Anxiety guaiFENesin [Mucinex] 600 mg PO BID@799,1999 Magnesium Hydroxide [Milk of Magnesia] 2,400 mg PO Q72H PRN PRN Reason: Constipation Levofloxacin [Levaquin] 750 mg PO DAILY #10 tab HYDROcodone/APAP 5-325MG [Foley 5-325] 2 tab PO Q4HR PRN PRN Reason: Pain Diltiazem Cd [Cardizem Cd] 120 mg PO HS Digoxin [Lanoxin] 125 mcg PO HS Discharge Medication List Montelukast Sodium [Singulair] 10 mg PO HS@199910/10/15 [History] Potassium Chloride ER [K-Dur 20] 20 meq PO DAILY 03/04/16 [History] Budesonide/Formoterol Fumarate [Symbicort 160-4.5 Mcg Inhaler] 2 puff INHALATION RT-BID@05/13/16 [History] Insulin Aspart Protam & Aspart [NovoLOG MIX 70-30 Flexpen] 15 unit SQ HS [History] Insulin Aspart Protam & Aspart [NovoLOG MIX 70-30 Flexpen] 25 unit SQ DAILY [History] Metoprolol Tartrate [Lopressor] 25 mg PO BID tab 05/16/16 [Rx] Sertraline [Zoloft] 100 mg PO DAILY tab 05/16/16 [Rx] Acetaminophen [Tylenol] 650 mg PO Q4H PRN 10/09/16 [History] Atorvastatin [Lipitor] 10 mg PO HS@199910/09/16 [History] Famotidine [Pepcid] 20 mg PO HS@199910/09/16 [History] Ferrous Sulfate [Feosol] 325 mg PO HS 10/09/16 [History] Folic Acid 1 mg PO DAILY 10/09/16 [History] Furosemide [Lasix] 40 mg PO BID 10/09/16 [History] Ipratropium-Albuterol Nebulize [Duoneb 0.5 mg-3 mg/3 ml Soln] 3 ml INHALATION RT -QID@05,,,10/09/16 [History] Lidocaine 2% Gel [Xylocaine Jelly 2%] 1 applic TOPICAL DAILY@0810/09/16 [ History] Multivitamins, Thera [Multivitamin (formulary)] 1 tab PO HS 10/09/16 [History] Rivaroxaban [Xarelto] 20 mg PO HS@199910/09/16 [History] Tiotropium 18 Mcg/Puff [Spiriva] 1 cap INHALATION RT-DAILY 10/09/16 [History] clonazePAM [KlonoPIN] 0.5 mg PO DAILY PRN 10/09/16 [History] clonazePAM [KlonoPIN] 0.5 mg PO HS@199910/09/16 [History] hydrOXYzine PAMOATE [Vistaril] 25 mg PO Q6HR PRN 10/09/16 [History] traMADol HCL [Ultram] 100 mg PO Q6H PRN 10/09/16 [History] Levofloxacin [Levaquin] 750 mg PO DAILY #10 tab 10/19/16 [Rx] Magnesium Hydroxide [Milk of Magnesia] 2,400 mg PO Q72H PRN 10/19/16 [History] guaiFENesin [Mucinex] 600 mg PO BID@08,199910/19/16 [History] Digoxin [Lanoxin] 125 mcg PO HS 10/22/16 [History] Diltiazem Cd [Cardizem Cd] 120 mg PO HS 10/22/16 [History] HYDROcodone/APAP 5-325MG [Foley 5-325] 2 tab PO Q4HR PRN 10/22/16 [History]
[2016-10-28 16:43] LABS: Glucose,Whole Blood 96 mg/dL (75-99)
[2016-10-28] MEDS: FOLIC ACID 1 MG TAB PO SCH (19:37)
[2016-10-28] MEDS: MONTELUKAST 10 MG TAB PO SCH (20:05)
[2016-10-28] MEDS: FAMOTIDINE 20 MG TAB PO SCH (20:05)
[2016-10-28] MEDS: ATORVASTATIN 10 MG TAB PO SCH (20:05)
[2016-10-28] MEDS: FERROUS SULFATE 325 MG TAB PO SCH (20:05)
[2016-10-28] MEDS: DONEPEZIL 5 MG TAB PO SCH (20:05)
[2016-10-28 21:07] LABS: Glucose,Whole Blood 128 mg/dL (75-99)
--- NOTE | 2016-10-28 21:32 | P.CON ---
Consult Note - . Consult date: 10/28/16 Assessment/Plan:: This is a 65-year-old female with long-standing history of obesity, asthma, COPD, coronary artery disease, chronic atrial fibrillation, dementia currently residing at [facility]. Patient had a recent hospitalization October 09 through October 14 and she was treated for acute renal failure and atrial fibrillation with RVR. At that time, she was seen by ID services for a skin ulcer on the abdominal wall. Local wound care was therahoney and a follow-up in the [facility]aling [facility] was planned. Patient was then brought into [facility] emergency center on October 19 for evaluation of a painful wound in the abdomen, fever. CAT scan of the abdomen show a large low-density mass in the subcutaneous tissues of the left side. This is not a simple cyst and could relate to a chronic hematoma or seroma. She was placed on Levaquin and discharged back to the senior care. Patient then had an appointment with Dr. Parsons on October 22 was sent into the emergency center for evaluation and admission. On October 24, Dr. Parsons took the patient to OR for I&D of abdominal wall fluid collection with panniculectomy and wound VAC placement. Patient remains with wound VAC in place. She has been afebrile with white count of 5.7. She has been on Levaquin initially and then switched to Zosyn. Her wound cultures are positive for Proteus mirabilis resistant to fluoroquinolones and tetracycline. Plan is for patient to go back to [facility] today. Please see the consult note is dictated by nurse practitioner Mrs. Cici Kimble. It is time the patient does have evidence of the wound VAC in place. As noted the culture has evidence of Proteus mirabilis. It is susceptible to cefuroxime. Some be utilized for the next few weeks in the outpatient setting. She will follow-up in the wound healing center for further evaluation of the extensive abdominal wall ulcer. And we can further antibiotic therapy at the wound healing Center. The. She will go to the extended care facility when a bed is available. I agree with evaluation, assessment and plan as dictated by nurse practitioner Mrs. Cici Kimble.
[2016-10-29] MEDS: SYMBICORT 160-4.5 MCG INHALER INHALATION SCH ×2 (07:08→19:28)
[2016-10-29] MEDS: TIOTROPIUM 18 MCG/PUFF INHALER INHALATION SCH (07:08)
[2016-10-29 07:14] LABS: Glucose,Whole Blood 105 mg/dL (75-99)
[2016-10-29] MEDS: LACTATED RINGERS 1,000 ML IV SCH ×2 (09:20→15:41)
[2016-10-29] MEDS: DILTIAZEM CD 120 MG CAP.ER.24H PO SCH (09:22)
[2016-10-29] MEDS: SERTRALINE 100 MG TAB PO SCH (09:22)
[2016-10-29] MEDS: PIPERACILLIN-TAZOBACTAM 3.375 GM in DEXTROSE/WATER 1 50ML.BAG IVPB SCH ×2 (09:22→15:40)
[2016-10-29] MEDS: METOPROLOL TARTRATE 25 MG TAB PO SCH ×2 (09:22→20:00)
[2016-10-29] MEDS: FUROSEMIDE 40 MG TAB PO SCH ×2 (09:22→20:00)
[2016-10-29] MEDS: HEPARIN SODIUM,PORCINE 5,000 UNIT/ML 1 ML VIAL SQ SCH ×2 (09:23→15:40)
[2016-10-29] MEDS: DIGOXIN 125 MCG TAB PO SCH (09:23)
[2016-10-29] MEDS: INSULIN LISPRO (humaLOG) 300 UNIT/3 ML VIAL SQ SCH ×3 (09:36→17:34)
[2016-10-29] MEDS ORDERED: HYDROcodone/APAP 5-325MG 1 EACH TAB PO PRN (11:31)
[2016-10-29 11:49] LABS: Glucose,Whole Blood 109 mg/dL (75-99)
[2016-10-29] MEDS: FOLIC ACID 1 MG TAB PO SCH (13:39)
[2016-10-29 15:10] VITALS: BP 115/55; PULSE 67; RESP 18; TEMP 98.1
[2016-10-29 17:16] LABS: Glucose,Whole Blood 142 mg/dL (75-99)
--- NOTE | 2016-10-29 18:48 | P.PN ---
Progress Note - Text Patient doing well today. No new complaints. Remains somewhat confused. Plans are for patient to follow through with discharge this afternoon. Please refer to yesterday's discharge summary. No change in examination at this time.
[2016-10-29] MEDS: DONEPEZIL 5 MG TAB PO SCH (20:00)
[2016-10-29] MEDS: FAMOTIDINE 20 MG TAB PO SCH (20:00)
[2016-10-29] MEDS: ATORVASTATIN 10 MG TAB PO SCH (20:00)
[2016-10-29] MEDS: MONTELUKAST 10 MG TAB PO SCH (20:00)
[2016-10-29] MEDS: FERROUS SULFATE 325 MG TAB PO SCH (20:01)
--- NOTE | 2016-11-03 12:04 | P.PN ---
Progress Note - Text In response to query the debridement was excisional please read the operative report
== END 2016-10-29 21:00 | DRG 570 ==
LOC: EC 16:01 → 3SUR 17:14 → OBSVTOIN 10-25 13:22
PROVIDERS: ADMIT Surgery; ATTEND Surgery
PROC: 0W9F00Z Drainage of Abdominal Wall with Drainage Device, Open Approach (ICD-10-PCS; 2016-10-24)
PROC: 0JB80ZZ Excision of Abdomen Subcutaneous Tissue and Fascia, Open Approach (ICD-10-PCS; 2016-10-24)
PROC: 0WBF0ZZ Excision of Abdominal Wall, Open Approach (ICD-10-PCS; principal; 2016-10-24 14:15)
DX: S30.1XXA Contusion of abdominal wall, initial encounter (principal); L89.893 Pressure ulcer of other site, stage 3; I11.0 Hypertensive heart disease with heart failure; I96 Gangrene, not elsewhere classified; F03.90 Unspecified dementia, unspecified severity, without behavioral disturbance, psychotic disturbance, mood disturbance, and anxiety; I50.32 Chronic diastolic (congestive) heart failure; E66.01 Morbid (severe) obesity due to excess calories; E11.9 Type 2 diabetes mellitus without complications; D64.9 Anemia, unspecified; I48.2 Chronic atrial fibrillation; J44.9 Chronic obstructive pulmonary disease, unspecified; E78.5 Hyperlipidemia, unspecified; G47.33 Obstructive sleep apnea (adult) (pediatric); M54.16 Radiculopathy, lumbar region; F41.1 Generalized anxiety disorder; I25.10 Atherosclerotic heart disease of native coronary artery without angina pectoris; R79.1 Abnormal coagulation profile; Z79.01 Long term (current) use of anticoagulants; Z79.4 Long term (current) use of insulin; Z79.51 Long term (current) use of inhaled steroids; Z79.899 Other long term (current) drug therapy; Z98.42 Cataract extraction status, left eye; Z98.41 Cataract extraction status, right eye; Z88.5 Allergy status to narcotic agent; Z86.11 Personal history of tuberculosis; Z91.048 Other nonmedicinal substance allergy status
CPT/HCPCS: 36415; 80048; 80053; 80162; 83036; 84132; 85025; 85610; 85730; 86850; 86900; 86901; 87070; 87075; 87077; 87186; 87205; 88304; 88305; 88331; 94640; 94760; 96365; 96375; 99285

== ENCOUNTER → 2017-01-27 | Outpatient (CLI) | payer MEDICARE ==
--- NOTE | 2017-01-27 15:06 | CT ---
EXAMINATION TYPE: CT abdomen pelvis w con DATE OF EXAM: 01/27/2017 COMPARISON: 10/19/2016 HISTORY: 66-year-old female with abdominal pain. Chart reporting panniculectomy. TECHNIQUE: Contiguous axial scanning of the abdomen and pelvis following administration of 100 ml Omn ipaque 300 IV contrast. Delayed images through the kidneys and coronal/sagittal reconstructions perf ormed. CT DLP: 1146.5 mGycm Automated exposure control for dose reduction was used. FINDINGS: Heart is upper limits of normal in size without pericardial effusion. Strandy atelectasis left base w ithout pleural effusion. This is to be a surgical clip at the GE junction. No focal liver lesion or biliary ductal dilatation. Portal venous system appears patent. Gallbladder, left adrenal gland, and pancreas appear within normal limits. Stable 1.4 cm nodule in the right adrenal gland, statistically represents a benign adrenal adenoma, u nchanged from 10/19/2016. Mild heterogeneous enhancement of the spleen likely due to slight early phase of imaging. Exophytic cyst upper pole left kidney stable measuring 6.8 cm. Large exophytic anterior to the inferi or right renal cysts measuring 9.9 and 7.8 cm, respectively, relatively stable in size. There is mass effect onto the adjacent gallbladder/mechelle hepatis. Exophytic lesion from the medial right kidney me asures 2.6 cm versus 2.2 cm, previously it does not show appreciable enhancement suggesting a complic ated/hemorrhagic cyst. Numerous hypodense lesions on both sides most of which are too small for active CT characterization a nd likely represent additional cysts. No mesenteric or retroperitoneal lymphadenopathy. No dilated small bowel, free fluid, or free air. Or al contrast has progressed to the hepatic flexure. Moderate stool distending the rectum up to 6.2 cm wide. Bladder underdistended. Uterus and ovaries are visualized. No abnormal fluid collection in the pelvis or pelvic lymphadenopathy. Pelvic phleboliths are noted. Interval resection of the patient's large mass in the subcutaneous fat with mesh material and postsur gical soft tissue thickening/scar. Bones: Degenerative changes at the hips, right greater than left, end-stage at the right hip. Degener ative changes mid to lower lumbar spine. No osseous destructive process. IMPRESSION: 1. INTERVAL MID TO LOWER ABDOMINAL PANNICULECTOMY. FAT STRANDING AND SOFT TISSUE THICKENING HERE LIK KENZIE REPRESENTS SCAR AND POSTSURGICAL CHANGE. 2. STABLE LARGE RIGHT-SIDED RENAL CYSTS MEASURING UP TO 9.9 CM AND 7.8 CM. THIS HAS LOCAL MASS EFFECT SUCH ONTO THE GALLBLADDER/MECHELLE HEPATIS AND SECOND PORTION OF THE DUODENUM. 3. A 2.6 CM SOFT TISSUE DENSITY LESION MEDIAL RIGHT KIDNEY PREVIOUSLY MEASURED 2.2 CM. THERE IS NO APPRECIABLE ENHANCEMENT, A COMPLICATED/HEMORRHAGIC CYST IS FAVORED. 4. END-STAGE OSTEOARTHROSIS RIGHT HIP.
== END | disposition home or self-care (01) ==
LOC: RADCTMAIN 12:21
PROVIDERS: ATTEND Surgery
DX: N28.1 Cyst of kidney, acquired (principal); M16.11 Unilateral primary osteoarthritis, right hip
CPT/HCPCS: 74177; Q9967

== ENCOUNTER 2017-09-18 15:19 | Observation (INO) | payer MEDICARE, OTHER ==
[2017-09-18] MEDS ORDERED: SODIUM CHLORIDE 0.9% 1,000 ML IV ONE (15:41)
--- NOTE | 2017-09-18 15:45 | ED ---
General Adult HPI - General Chief complaint: Nausea/Vomiting/Diarrhea Stated complaint: Nausea Time Seen by Provider: 09/18/17 15:20 Source: RN/, RN notes reviewed Mode of arrival: EMS Limitations: no limitations - History of Present Illness Initial comments: This is a 66-year-old female presents emergency Department with nausea and vomiting patient states times a week EMS stated 2 days. Patient's also had an elevated calcium for over a week. According to initial report patient is alert and oriented 2 normally she is alert and oriented 3. According to EMS this is her baseline because of her dementia as we are not quite sure at this time if she is altered or not and there was no one else to ask. No other history is available this time no one came with the patient. Patient has no complaints of any pain. Patient denies headache patient denies any chest pain difficulty breathing or shortness of breath. Patient denies any abdominal pain. Patient denies any recent injury or fall. - Related Data Home Medications Medication Instructions Recorded Confirmed Montelukast Sodium [Singulair] 10 mg PO HS@199910/10/15 09/18/17 Acetaminophen [Tylenol] 650 mg PO Q4H PRN 10/09/16 09/18/17 Ferrous Sulfate [Iron (65 MG 325 mg PO HS 10/09/16 09/18/17 Elemental)] Ipratropium-Albuterol Nebulize 3 ml INHALATION RT-Q6H PRN 10/09/16 09/18/17 [Duoneb 0.5 mg-3 mg/3 ml Soln] Tiotropium 18 Mcg/Puff [Spiriva] 1 cap INHALATION RT-DAILY 10/09/16 09/18/17 Magnesium Hydroxide [Milk of 2,400 mg PO Q72H PRN 10/19/16 09/18/17 Magnesia] Diltiazem Cd [Cardizem CD] 120 mg PO HS 10/22/16 09/18/17 HYDROcodone/APAP 5-325MG [[place] 2 tab PO Q4HR PRN 10/22/16 09/18/17 5-325] Amino Acids/Protein Hydrolys 30 ml PO BID 01/26/17 09/18/17 [Pro-Stat Supplement] Bisacodyl [Dulcolax] 10 mg RECTAL Q3D PRN 09/18/17 09/18/17 Cholecalciferol [Vitamin D3] 800 unit PO HS 09/18/17 09/18/17 Cinacalcet [Sensipar] 30 mg PO DAILY 09/18/17 09/18/17 Fluticasone/Vilanterol [Breo 1 inhalation PO RT-DAILY 09/18/17 09/18/17 Ellipta 200-25 Mcg INH] Folic Acid 0.8 mg PO DAILY 09/18/17 09/18/17 Furosemide [Lasix] 20 mg PO DAILY 09/18/17 09/18/17 Metoprolol Tartrate [Lopressor] 12.5 mg PO BID 09/18/17 09/18/17 Potassium Chloride ER [K-Dur 10] 10 meq PO DAILY 09/18/17 09/18/17 Rivaroxaban [Xarelto] 15 mg PO HS 09/18/17 09/18/17 Sennosides-Docusate Sodium 1 tab PO BID 09/18/17 09/18/17 [Senokot-S] Previous Rx's Medication Instructions Recorded Sertraline [Zoloft] 100 mg PO DAILY tab 05/16/16 Allergies Allergy/AdvReac Type Severity Reaction Status Date / Time adhesive Allergy Rash/Hives Verified 09/18/17 15:46 codeine Allergy Rash/Hives Verified 09/18/17 15:46 Review of Systems ROS Statement: Those systems with pertinent positive or pertinent negative responses have been documented in the HPI. ROS Other: All systems not noted in ROS Statement are negative. Past Medical History Past Medical History: Atrial Fibrillation, Asthma, Heart Failure, COPD, Dementia , Diabetes Mellitus, Hyperlipidemia, Hypertension Additional Past Medical History / Comment(s): Morbid obesity, obstructive sleep apnea maintained on CPAP History of Any Multi-Drug Resistant Organisms: MRSA Date of last positivie culture/infection: 12/15/16 MDRO Source:: abdomen Past Surgical History: Breast Surgery, Hernia Repair Additional Past Surgical History / Comment(s): cataracts, panniculectomy and I& D of abdominal mass Past Anesthesia/Blood Transfusion Reactions: No Reported Reaction Past Psychological History: Anxiety Smoking Status: Never smoker - Past Family History Mother Family Medical History: CVA/TIA Father Additional Family Medical History / Comment(s): WAS INJURED IN [place], also had hx tb but from complications of his injuries Brother(s) Additional Family Medical History / Comment(s): at age 2 years 10months tb General Exam - General Exam Comments Initial Comments: GENERAL: Patient is well-developed and well-nourished. Patient is nontoxic and well- hydrated and is in no acute distress. ENT: Neck is soft and supple. No significant lymphadenopathy is noted. Oropharynx is clear. Moist mucous membranes. Neck has full range of motion without eliciting any pain. EYES: The sclera were anicteric and conjunctiva were pink and moist. Extraocular movements were intact and pupils were equal round and reactive to light. Eyelids were unremarkable. PULMONARY: Unlabored respirations. Good breath sounds bilaterally. No audible rales rhonchi or wheezing was noted. CARDIOVASCULAR: There is a regular rate and rhythm without any murmurs gallops or rubs. ABDOMEN: Soft and nontender with normal bowel sounds. No palpable organomegaly was noted. There is no palpable pulsatile mass. SKIN: Skin is clear with no lesions or rashes and otherwise unremarkable. NEUROLOGIC: Patient is alert and oriented 2. Cranial nerves II through XII are grossly intact. Motor and sensory are also intact. Normal speech, volume and content. Symmetrical smile. MUSCULOSKELETAL: Normal extremities with adequate strength and full range of motion. No lower extremity swelling or edema. No calf tenderness. LYMPHATICS: No significant lymphadenopathy is noted PSYCHIATRIC: Normal psychiatric evaluation. Normal interpersonal interactions appears functionally intact in deals appropriately with others. No signs of depression. No signs of anxiety. Limitations: no limitations Course Vital Signs 09/18/17 15:24 Temperature 97.9 F Pulse Rate 81 Respiratory 18 Rate Blood Pressure 147/67 O2 Sat by Pulse 100 Oximetry Medical Decision Making - Medical Decision Making EKG shows sinus rhythm with PAC at 67 bpm MS interval is 174 QRS is 94 QT interval 394 QTC is 416 patient's EKG shows an occasional PAC however there is no ST segment elevation or depression. There is some T-wave inversions in leads V1 and V2 and V3. Patient's urine came back with 55 white cells. I started the patient on Rocephin. A culture the urine. Patient still remains alert and oriented 2 and no family is yet in the room to discuss her baseline. Patient's troponin came back mildly elevated she will be admitted and I will repeat troponin. I spoke with Dr. Munoz agreed to admit the patient I wrote admitting orders I consult to cardiology I continue the antibiotics on the floor and I repeated troponins. - Lab Data Result diagrams: 09/18/17 15:35 09/18/17 15:35 Lab Results 09/18/17 09/18/17 09/18/17 Range/Units 15:35 15:35 15:35 WBC 7.4 (3.8-10.6) k/uL RBC 4.01 (3.80-5.40) m/uL Hgb 10.6 L (11.4-16.0) gm/dL Hct 32.1 L (34.0-46.0) % MCV 80.0 (80.0-100.0) fL MCH 26.4 (25.0-35.0) pg MCHC 33.0 (31.0-37.0) g/dL RDW 14.6 (11.5-15.5) % Plt Count 291 (150-450) k/uL Neutrophils % 57 % Lymphocytes % 26 % Monocytes % 9 % Eosinophils % 4 % Basophils % 1 % Neutrophils # 4.3 (1.3-7.7) k/uL Lymphocytes # 1.9 (1.0-4.8) k/uL Monocytes # 0.6 (0-1.0) k/uL Eosinophils # 0.3 (0-0.7) k/uL Basophils # 0.1 (0-0.2) k/uL Sodium 137 (137-145) mmol/L Potassium 3.9 (3.5-5.1) mmol/L Chloride 97 L (98-107) mmol/L Carbon Dioxide 27 (22-30) mmol/L Anion Gap 13 mmol/L BUN 47 H (7-17) mg/dL Creatinine 1.93 H (0.52-1.04) mg/dL Est GFR (CKD-EPI)AfAm 30 (>60 ml/min/1.73 sqM) Est GFR (CKD-EPI)NonAf 26 (>60 ml/min/1.73 sqM) Glucose 112 H (74-99) mg/dL Calcium 11.9 H (8.4-10.2) mg/dL Total Bilirubin 0.3 (0.2-1.3) mg/dL AST 18 (14-36) U/L ALT 27 (9-52) U/L Alkaline Phosphatase 77 (38-126) U/L Troponin I 0.037 H* (0.000-0.034) ng/mL Total Protein 6.1 L (6.3-8.2) g/dL Albumin 3.5 (3.5-5.0) g/dL Amylase 39 (30-110) U/L Lipase 19 L (23-300) U/L Urine Color Urine Appearance (Clear) Urine pH (5.0-8.0) Ur Specific [place] (1.001-1.035) Urine Protein (Negative) Urine Glucose (UA) (Negative) Urine Ketones (Negative) Urine Blood (Negative) Urine Nitrite (Negative) Urine Bilirubin (Negative) Urine Urobilinogen (<2.0) mg/dL Ur Leukocyte Esterase (Negative) Urine RBC (0-5) /hpf Urine WBC (0-5) /hpf Urine WBC Clumps (None) /hpf Ur Squamous Epith Cells (0-4) /hpf Urine Mucus (None) /hpf 09/18/17 Range/Units 15:40 WBC (3.8-10.6) k/uL RBC (3.80-5.40) m/uL Hgb (11.4-16.0) gm/dL Hct (34.0-46.0) % MCV (80.0-100.0) fL MCH (25.0-35.0) pg MCHC (31.0-37.0) g/dL RDW (11.5-15.5) % Plt Count (150-450) k/uL Neutrophils % % Lymphocytes % % Monocytes % % Eosinophils % % Basophils % % Neutrophils # (1.3-7.7) k/uL Lymphocytes # (1.0-4.8) k/uL Monocytes # (0-1.0) k/uL Eosinophils # (0-0.7) k/uL Basophils # (0-0.2) k/uL Sodium (137-145) mmol/L Potassium (3.5-5.1) mmol/L Chloride (98-107) mmol/L Carbon Dioxide (22-30) mmol/L Anion Gap mmol/L BUN (7-17) mg/dL Creatinine (0.52-1.04) mg/dL Est GFR (CKD-EPI)AfAm (>60 ml/min/1.73 sqM) Est GFR (CKD-EPI)NonAf (>60 ml/min/1.73 sqM) Glucose (74-99) mg/dL Calcium (8.4-10.2) mg/dL Total Bilirubin (0.2-1.3) mg/dL AST (14-36) U/L ALT (9-52) U/L Alkaline Phosphatase (38-126) U/L Troponin I (0.000-0.034) ng/mL Total Protein (6.3-8.2) g/dL Albumin (3.5-5.0) g/dL Amylase (30-110) U/L Lipase (23-300) U/L Urine Color Light Yellow Urine Appearance Cloudy H (Clear) Urine pH 7.0 (5.0-8.0) Ur Specific [place] 1.009 (1.001-1.035) Urine Protein 1+ H (Negative) Urine Glucose (UA) Negative (Negative) Urine Ketones Negative (Negative) Urine Blood Negative (Negative) Urine Nitrite Negative (Negative) Urine Bilirubin Negative (Negative) Urine Urobilinogen <2.0 (<2.0) mg/dL Ur Leukocyte Esterase Large H (Negative) Urine RBC 4 (0-5) /hpf Urine WBC 55 H (0-5) /hpf Urine WBC Clumps Few H (None) /hpf Ur Squamous Epith Cells 3 (0-4) /hpf Urine Mucus Rare H (None) /hpf Disposition Clinical Impression: Urinary tract infection, Altered mental status, Elevated troponin I level, Acute vomiting Disposition: ADMITTED IP TO THIS HOSP Referrals: Travis Mccoy DO [Primary Care Provider] - 1-2 days Time of Disposition: 16:48
[2017-09-18 15:52] LABS: Basophils # (A) 0.1 k/uL (0-0.2); Basophils % (A) 1 %; Eosinophils # (A) 0.3 k/uL (0-0.7); Eosinophils % (A) 4 %; HCT 32.1 % (34.0-46.0); HGB 10.6 gm/dL (11.4-16.0); Lymphocytes # (A) 1.9 k/uL (1.0-4.8); Lymphocytes % (A) 26 %; MCH 26.4 pg (25.0-35.0); Mean Platelet Volume 7.5; Monocytes # (A) 0.6 k/uL (0-1.0); Monocytes % (A) 9 %; Neutrophils # (A) 4.3 k/uL (1.3-7.7); Neutrophils % (A) 57 %; Platelet Count 291 k/uL (150-450); RBC 4.01 m/uL (3.80-5.40); RDW 14.6 % (11.5-15.5); WBC 7.4 k/uL (3.8-10.6)
[2017-09-18 16:02] LABS: Albumin 3.5 g/dL (3.5-5.0); Calcium 11.9 mg/dL (8.4-10.2); Potassium 3.9 mmol/L (3.5-5.1); Total Bilirubin 0.3 mg/dL (0.2-1.3); Total Protein 6.1 g/dL (6.3-8.2)
[2017-09-18 16:20] LABS: Appearance,Urine Cloudy (Clear); Bilirubin,Urine Negative (Negative); Blood,Urine Negative (Negative); Color,Urine Light Yellow; Glucose,Urine (UA) Negative (Negative); Ketones,Urine Negative (Negative); Leukocyte Esterase,Urine Large (Negative); Mucus,Urine Rare /hpf; Nitrite,Urine Negative (Negative); Protein,Urine 1+ (Negative); RBC,Urine 4 /hpf (0-5); Specific Gravity,Urine 1.009 (1.001-1.035); Squamous Epithelial Cell,Urine 3 /hpf (0-4); Urobilinogen,Urine <2.0 mg/dL (<2.0); WBC,Urine 55 /hpf (0-5)
[2017-09-18] MEDS ORDERED: cefTRIAXone 2,000 MG in SODIUM CHLORIDE 0.9% 100 ML IVPB STA (16:40)
[2017-09-18] MEDS ORDERED: cefTRIAXone IN SWFI 2,000 MG/20 ML SYRINGE IVP STA (16:42)
[2017-09-18] MEDS ORDERED: NITROGLYCERIN SL TABS 0.4 MG TAB SUBLINGUAL PRN (16:48)
[2017-09-18] MEDS ORDERED: HYDROcodone/APAP 5-325MG 1 EACH TAB PO PRN (20:39)
[2017-09-18] MEDS ORDERED: ACETAMINOPHEN TAB 325 MG TAB PO PRN (20:39)
[2017-09-18] MEDS ORDERED: BISACODYL 10 MG SUPP RECTAL PRN (20:39)
[2017-09-18] MEDS ORDERED: MAGNESIUM HYDROXIDE 2,400 MG/10 ML CUP PO PRN (20:39)
[2017-09-18 20:57] LABS: Glucose,Whole Blood 104 mg/dL (75-99)
[2017-09-18] MEDS ORDERED: NON-FORMULARY DRUG (Amino Acids/Protein Hydrolys [Pro-Stat Supplement] 30 ML) PO SCH (21:00)
[2017-09-18] MEDS ORDERED: CHOLECALCIFEROL 400 UNIT TAB PO SCH (21:00)
[2017-09-18] MEDS: INSULIN ASPART 100 UNIT/ML 1 ML 10 ML VIAL SQ SCH (21:38)
[2017-09-18] MEDS: METOPROLOL TARTRATE 12.5 MG TAB PO SCH (21:39)
[2017-09-18] MEDS: RIVAROXABAN 15 MG TAB PO SCH (21:39)
[2017-09-18] MEDS: DILTIAZEM CD 120 MG CAP.ER.24H PO SCH (21:39)
[2017-09-18] MEDS: FERROUS SULFATE 325 MG TAB PO SCH (21:39)
[2017-09-18] MEDS: SENNOSIDES-DOCUSATE SODIUM 1 EACH TAB PO SCH (21:40)
[2017-09-18 21:51] LABS: Creatine Kinase <20 U/L (30-135)
[2017-09-18 22:02] LABS: Creatine Kinase MB <0.2 ng/mL (0.0-2.4)
[2017-09-18 22:04] LABS: Troponin I 0.037 ng/mL (0.000-0.034)
[2017-09-18 22:49] VITALS: RESP 18
[2017-09-19 03:44] LABS: Creatine Kinase <20 U/L (30-135)
[2017-09-19 03:57] LABS: Creatine Kinase MB <0.2 ng/mL (0.0-2.4); Troponin I 0.029 ng/mL (0.000-0.034)
[2017-09-19 04:07] LABS: Cholesterol 161 mg/dL (<200); HDL Cholesterol 22 mg/dL (40-60); LDL Cholesterol,Calculated 107 mg/dL (0-99); Triglycerides 161 mg/dL (<150)
[2017-09-19 06:14] LABS: Glucose,Whole Blood 92 mg/dL (75-99)
[2017-09-19] MEDS: INSULIN ASPART 100 UNIT/ML 1 ML 10 ML VIAL SQ SCH ×4 (06:25→21:13)
[2017-09-19] MEDS: SYMBICORT 160-4.5 MCG INHALER INHALATION SCH ×2 (07:59→20:18)
[2017-09-19] MEDS: IPRATROPIUM 0.5 MG/2.5 ML NEBU INHALATION SCH ×4 (07:59→20:18)
[2017-09-19] MEDS: FOLIC ACID 1 MG TAB PO SCH (08:30)
[2017-09-19] MEDS: CINACALCET 30 MG TAB PO SCH (08:30)
[2017-09-19] MEDS: METOPROLOL TARTRATE 12.5 MG TAB PO SCH ×2 (08:31→20:42)
[2017-09-19] MEDS: SERTRALINE 100 MG TAB PO SCH (08:31)
[2017-09-19] MEDS: POTASSIUM CHLORIDE ER 10 MEQ TAB.ER.PRT PO SCH (08:31)
[2017-09-19] MEDS: SENNOSIDES-DOCUSATE SODIUM 1 EACH TAB PO SCH ×2 (08:31→20:42)
[2017-09-19] MEDS: cefTRIAXone IN SWFI 1,000 MG/10 ML SYRINGE IVP SCH (08:32)
[2017-09-19] MEDS ORDERED: FUROSEMIDE 20 MG TAB PO SCH (09:00)
[2017-09-19] MEDS ORDERED: ASPIRIN 325 MG TAB PO SCH (09:00)
--- NOTE | 2017-09-19 09:49 | P.CRDCN ---
History of Present Illness Consult date: 09/19/17 History of present illness: This is a pleasant 66-year-old female patient with a past medical history significant for paroxysmal atrial fibrillation, COPD, and underlying dementia, was admitted to the hospital after she presented to the emergency room complaining of nausea and vomiting. I came in to interview the patient and she states she does not know what brought her to the hospital. She denies having any nausea or vomiting at this point. She denies having any chest pain or chest discomfort, shortness of breath, dizziness or lightheadedness, or syncope. The patient does have history of paroxysmal atrial fibrillation and she is on oral anticoagulation. No established history of coronary artery disease or congestive heart failure. The vital signs seems to be within normal limits. In terms of blood work, the troponin was checked and came in to be slightly abnormal but it seems to be flat across support. The EKG didn't show sinus rhythm without any ischemic ST or T-wave abnormalities concerning for ischemia. The patient underwent an echocardiogram a year ago and that revealed normal LV function. Past Medical History Past Medical History: Atrial Fibrillation, Asthma, Heart Failure, COPD, Dementia , Diabetes Mellitus, Hyperlipidemia, Hypertension, Renal Disease, Sleep Apnea/ CPAP/BIPAP Additional Past Medical History / Comment(s): Morbid obesity, obstructive sleep apnea maintained on CPAP , uti, anemia, kidney cyst History of Any Multi-Drug Resistant Organisms: MRSA Date of last positivie culture/infection: 12/15/16 MDRO Source:: abdomen Past Surgical History: Breast Surgery, Hernia Repair Additional Past Surgical History / Comment(s): cataracts, panniculectomy and I& D of abdominal mass Past Anesthesia/Blood Transfusion Reactions: No Reported Reaction Smoking Status: Never smoker - Past Family History Mother Family Medical History: CVA/TIA Father Additional Family Medical History / Comment(s): WAS INJURED [place], also had hx tb but from complications of his injuries Brother(s) Additional Family Medical History / Comment(s): at age 2 years 10months tb Medications and Allergies Home Medications Medication Instructions Recorded Confirmed Type Montelukast Sodium [Singulair] 10 mg PO HS@199910/10/15 09/18/17 History Sertraline [Zoloft] 100 mg PO DAILY tab 05/16/16 09/18/17 Rx Acetaminophen [Tylenol] 650 mg PO Q4H PRN 10/09/16 09/18/17 History Ferrous Sulfate [Iron (65 MG 325 mg PO HS 10/09/16 09/18/17 History Elemental)] Ipratropium-Albuterol Nebulize 3 ml INHALATION RT-Q6H PRN 10/09/16 09/18/17 History [Duoneb 0.5 mg-3 mg/3 ml Soln] Tiotropium 18 Mcg/Puff [Spiriva] 1 cap INHALATION RT-DAILY 10/09/16 09/18/17 History Magnesium Hydroxide [Milk of 2,400 mg PO Q72H PRN 10/19/16 09/18/17 History Magnesia] Diltiazem Cd [Cardizem CD] 120 mg PO HS 10/22/16 09/18/17 History HYDROcodone/APAP 5-325MG [[place] 2 tab PO Q4HR PRN 10/22/16 09/18/17 History 5-325] Amino Acids/Protein Hydrolys 30 ml PO BID 01/26/17 09/18/17 History [Pro-Stat Supplement] Bisacodyl [Dulcolax] 10 mg RECTAL Q3D PRN 09/18/17 09/18/17 History Cholecalciferol [Vitamin D3] 800 unit PO HS 09/18/17 09/18/17 History Cinacalcet [Sensipar] 30 mg PO DAILY 09/18/17 09/18/17 History Fluticasone/Vilanterol [Breo 1 inhalation PO RT-DAILY 09/18/17 09/18/17 History Ellipta 200-25 Mcg INH] Folic Acid 0.8 mg PO DAILY 09/18/17 09/18/17 History Furosemide [Lasix] 20 mg PO DAILY 09/18/17 09/18/17 History Metoprolol Tartrate [Lopressor] 12.5 mg PO BID 09/18/17 09/18/17 History Potassium Chloride ER [K-Dur 10] 10 meq PO DAILY 09/18/17 09/18/17 History Rivaroxaban [Xarelto] 15 mg PO HS 09/18/17 09/18/17 History Sennosides-Docusate Sodium 1 tab PO BID 09/18/17 09/18/17 History [Senokot-S] Allergies Allergy/AdvReac Type Severity Reaction Status Date / Time adhesive Allergy Rash/Hives Verified 09/18/17 15:46 codeine Allergy Rash/Hives Verified 09/18/17 15:46 Physical Exam Vitals: Vital Signs Temp Pulse Pulse Resp BP BP Pulse Ox 09/19/17 08:12 77 09/19/17 08:02 76 09/19/17 08:00 97.3 F L 100 18 112/58 98 09/19/17 03:00 97.2 F L 98 18 119/71 100 09/18/17 23:40 97.1 F L 94 18 138/82 100 09/18/17 20:00 98.0 F 92 18 127/65 100 09/18/17 18:30 97.2 F L 85 124/91 100 09/18/17 17:31 98 F 74 16 134/87 96 09/18/17 15:24 97.9 F 81 18 147/67 100 Intake and Output 09/18/17 09/19/17 09/19/17 22:59 06:59 14:59 Intake Total 0 Balance 0 Intake: Oral 0 Other: # Voids 2 Weight 68.039 kg 66.5 kg - Constitutional General appearance: no acute distress - Respiratory Respiratory: bilateral: CTA - Cardiovascular Rhythm: regular Heart sounds: normal: S1, S2 Results 09/18/17 15:35 09/18/17 15:35 Cardiac Enzymes 09/18/17 09/18/17 09/18/17 Range/Units 15:35 15:35 21:15 AST 18 (14-36) U/L CK-MB (CK-2) <0.2 (0.0-2.4) ng/mL Troponin I 0.037 H* 0.037 H* (0.000-0.034) ng/mL 09/19/17 Range/Units 02:58 AST (14-36) U/L CK-MB (CK-2) <0.2 (0.0-2.4) ng/mL Troponin I 0.029 (0.000-0.034) ng/mL Lipids 09/19/17 Range/Units 02:58 Triglycerides 161 H (<150) mg/dL Cholesterol 161 (<200) mg/dL HDL Cholesterol 22 L (40-60) mg/dL CBC 09/18/17 Range/Units 15:35 WBC 7.4 (3.8-10.6) k/uL RBC 4.01 (3.80-5.40) m/uL Hgb 10.6 L (11.4-16.0) gm/dL Hct 32.1 L (34.0-46.0) % Plt Count 291 (150-450) k/uL Comprehensive Metabolic Panel 09/18/17 Range/Units 15:35 Sodium 137 (137-145) mmol/L Potassium 3.9 (3.5-5.1) mmol/L Chloride 97 L (98-107) mmol/L Carbon Dioxide 27 (22-30) mmol/L BUN 47 H (7-17) mg/dL Creatinine 1.93 H (0.52-1.04) mg/dL Glucose 112 H (74-99) mg/dL Calcium 11.9 H (8.4-10.2) mg/dL AST 18 (14-36) U/L ALT 27 (9-52) U/L Alkaline Phosphatase 77 (38-126) U/L Total Protein 6.1 L (6.3-8.2) g/dL Albumin 3.5 (3.5-5.0) g/dL Current Medications Generic Name Dose Route Start Last Admin Trade Name Freq PRN Reason Stop Dose Admin Acetaminophen 650 mg 09/18/17 20:39 Tylenol Tab PO Q4H PRN Mild to Moderate Pain Hydrocodone Bitart/Acetaminophen 2 each 09/18/17 20:39 [place] 5-325 PO Q4HR PRN Moderate to Severe Pain Albuterol/Ipratropium 3 ml 09/18/17 20:39 Duoneb 0.5 Mg-3 Mg/3 Ml Soln INHALATION RT-Q6H PRN Shortness Of Breath Aspirin 325 mg 09/19/17 09:00 09/19/17 08:30 Aspirin PO 325 mg DAILY SHAGUFTA Administration Bisacodyl 10 mg 09/18/17 20:39 Dulcolax RECTAL Q3D PRN Constipation Budesonide/Formoterol Fumarate 2 puff 09/19/17 08:00 09/19/17 07:59 Symbicort 160-4.5 Mcg Inhaler INHALATION 2 puff RT-BID SHAGUFTA Administration Ceftriaxone Sodium 1,000 mg 09/19/17 09:00 09/19/17 08:32 Rocephin IVP 1,000 mg Q24HR SHAGUFTA Administration Cholecalciferol 800 unit 09/18/17 21:00 09/18/17 21:39 Vitamin D3 PO 800 unit HS [facility] Administration Cinacalcet 30 mg 09/19/17 09:00 09/19/17 08:30 Sensipar PO 30 mg DAILY SHAGUFTA Administration Diltiazem HCl 120 mg 09/18/17 21:00 09/18/17 21:39 Cardizem Cd PO 120 mg HS [facility] Administration Ferrous Sulfate 325 mg 09/18/17 21:00 09/18/17 21:39 Feosol PO 325 mg HS SHAGUFTA Administration Folic Acid 1 mg 09/19/17 09:00 09/19/17 08:30 Folic Acid PO 1 mg DAILY [facility] Administration Furosemide 20 mg 09/19/17 09:00 09/19/17 08:30 Lasix PO 20 mg DAILY [facility] Administration Insulin Aspart 0 unit 09/18/17 21:00 09/19/17 06:25 Novolog SQ Not Given ACHS [facility] Protocol Ipratropium [place] 0.5 mg 09/19/17 08:00 09/19/17 07:59 Atrovent Nebulized INHALATION 0.5 mg RT-QID [facility] Administration Magnesium Hydroxide 2,400 mg 09/18/17 20:39 Milk Of Magnesia PO Q72H PRN Constipation Metoprolol Tartrate 12.5 mg 09/18/17 21:00 09/19/17 08:31 Lopressor PO 12.5 mg BID [facility] Administration Montelukast Sodium 10 mg 09/19/17 20:00 Singulair PO HS@2000 [facility] Nitroglycerin 0.4 mg 09/18/17 16:48 Nitrostat SUBLINGUAL Q5M PRN Chest Pain Potassium Chloride 10 meq 09/19/17 09:00 09/19/17 08:31 K-Dur 10 PO 10 meq DAILY [facility] Administration Rivaroxaban 15 mg 09/18/17 21:00 09/18/17 21:39 Xarelto PO 15 mg HS [facility] Administration Senna/Docusate Sodium 1 each 09/18/17 21:00 09/19/17 08:31 Senokot-S PO 1 each BID [facility] Administration Sertraline HCl 100 mg 09/19/17 09:00 09/19/17 08:31 Zoloft PO 100 mg DAILY [facility] Administration Intake and Output 07/08/3109/19/17 09/19/17 22:59 06:59 14:59 Intake Total 0 Balance 0 Intake: Oral 0 Other: # Voids 2 Weight 68.039 kg 66.5 kg 09/18/17 15:35 09/18/17 15:35 Assessment and Plan Assessment: Assessment #1 paroxysmal atrial fibrillation and the patient seems to be maintaining normal sinus mechanism #2 mildly abnormal cardiac enzymes does not reflect an acute coronary syndrome #3 chronic obstructive pulmonary disease #4 underlying dementia Plan #1 from the cardiovascular standpoint overview, I would continue the current medical regimen #2 repeat the echocardiogram since her last echo was unremarkable #3 the patient's cardiac enzymes does not reflect an acute coronary event #4 follow-up with the patient.
[2017-09-19 11:49] LABS: Glucose,Whole Blood 77 mg/dL (75-99)
[2017-09-19 13:59] LABS: Hemoglobin A1C 5.5 % (4.0-6.0)
--- NOTE | 2017-09-19 14:32 | ECHOF ---
Referral Reason:abnormal troponin MEASUREMENTS -------- HEIGHT: 157.5 cm WEIGHT: 66.2 kg BP: 112/58 RVIDd: 3.0 cm (< 3.3) IVSd: 1.2 cm (0.6 - 1.1) LVIDd: 4.0 cm (3.9 - 5.3) LVPWd: 1.2 cm (0.6 - 1.1) IVSs: 1.4 cm LVIDs: 2.7 cm LVPWs: 1.4 cm LAESV Index (A-L): 62.96 ml/m Ao Diam: 3.2 cm (2.0 - 3.7) AV Cusp: 0.8 cm (1.5 - 2.6) LA Diam: 4.4 cm (2.7 - 3.8) MV E Gustavo: 0.97 m/s MV DecT: 179 ms MV A Gustavo: 0.00 m/s MV E/A Ratio: 557.90 RAP: 5.00 mmHg RVSP: 19.32 mmHg FINDINGS -------- Sinus rhythm. This was a technically adequate study. The left ventricular size is normal. There is mild concentric left ventricular hypertrophy. Overa ll left ventricular systolic function is normal with, an EF between 55 - 60 %. The right ventricle is normal in size and function. LA is severely dilated >40 ml/m2 The right atrium is normal in size. There is mild aortic valve sclerosis. Trace to mild aortic regurgitation. There is no evidence of aortic stenosis. Local thickening of the left coronary cusp. The mitral valve leaflets are mildly thickened. Mild mitral annular calcification present. Mild-t o-moderate mitral regurgitation is present. Trace tricuspid regurgitation present. Right ventricular systolic pressure is normal at < 35 mmHg. There is no evidence of pulmonary hypertension. The pulmonic valve was not well visualized. The aortic root size is normal. Normal inferior vena cava with normal inspiratory collapse consistent with estimated right atrial pre ssure of 5 mmHg. There is no pericardial effusion. CONCLUSIONS -------- 1. Sinus rhythm. 2. This was a technically adequate study. 3. The left ventricular size is normal. 4. There is mild concentric left ventricular hypertrophy. 5. Overall left ventricular systolic function is normal with, an EF between 55 - 60 %. 6. LA is severely dilated >40 ml/m2 7. There is mild aortic valve sclerosis. 8. Trace to mild aortic regurgitation. 9. Local thickening of the left coronary cusp. 10. The mitral valve leaflets are mildly thickened. 11. Mild mitral annular calcification present. 12. [id number] mitral regurgitation is present. 13. Trace tricuspid regurgitation present. 14. Right ventricular systolic pressure is normal at < 35 mmHg. 15. There is no evidence of pulmonary hypertension. 16. The pulmonic valve was not well visualized. 17. The aortic root size is normal. 18. There is no pericardial effusion. LEASING MACHINE TENDER: Aman De León RDCS
[2017-09-19 16:41] LABS: Glucose,Whole Blood 76 mg/dL (75-99)
[2017-09-19] MEDS: LACTATED RINGERS 1,000 ML IV SCH (18:48)
--- NOTE | 2017-09-19 20:28 | HP ---
HISTORY AND PHYSICAL DATE OF ADMISSION: 09/18/2017. DATE OF SERVICE: September 19, 2017. PRESENT COMPLAINT: Nausea, vomiting. Tired. HISTORY OF PRESENTING COMPLAINT: This is a pleasant 66-year-old patient, resident of [facility], being followed by Dr. Mccoy. Chronic stable medical conditions include atrial fibrillation, COPD, mild dementia, chronic kidney disease, obstructive sleep apnea, hypertension, hyperlipidemia. The patient presented with multitude of symptoms. Nausea, vomiting, feeling dry, tired, run down, said the calcium runs high. When patient presented here the patient's EKG is showing some nonspecific changes with some PACs. The patient even though with a history of dementia, is able to carry on a simple conversation and can give a history. Does feel tired and run down. Denies any chest pain or palpitation. Denies any fever and chills. REVIEW OF SYSTEMS: CONSTITUTIONAL: Tired. HEENT none. RESPIRATORY: Some minimal baseline short of breath. CARDIOVASCULAR none. GASTROINTESTINAL none. GENITOURINARY none. MUSCULOSKELETAL some pain in the joints. DERMATOLOGICAL and HEMATOLOGIC, LYMPHATICS: None. PSYCHIATRY: Slightly forgetful. NEUROLOGICAL: Generalized weakness. PAST MEDICAL HISTORY: Atrial fibrillation, COPD, congestive heart failure with preserved ejection fraction. Mild dementia, hypertension, hyperlipidemia, chronic kidney disease, obstructive sleep apnea with CPAP. PAST SURGICAL HISTORY: Breast surgery, hernia repair, cataract surgery, patellectomy, I and D of the abdominal mass. SOCIAL HISTORY: No smoking, no alcohol. Resident of [facility]. Uses a walker and a wheelchair. FAMILY HISTORY: Reviewed. Noncontributory to presentation. HOME MEDICATIONS: 1. [place] 5 2 tablets q.4 p.r.n. 2. Milk of magnesia 2400 mg q.72 hours p.r.n. 3. DuoNeb q.6 p.r.n. 4. Dulcolax 10 mg rectal every 3 days p.r.n. 5. Senokot S 1 tablet p.o. b.i.d. 6. Tylenol. 7. ProStat 30 mL p.o. b.i.d. 8. Lopressor 12.5 p.o. b.i.d. 9. Zoloft 100 mg p.o. daily. 10.Xarelto 50 mg q.h.s. 11.Vitamin D3 a 1000 units p.o. at bedtime. 12.Spiriva 1 capsule daily. 13.Sensipar 30 mg p.o. daily. 14.Potassium 10 mEq p.o. daily. 15.Singulair 10 mg q.h.s. 16.Lasix 20 mg a day. 17.Folic acid 0.8 mg a day. 18.Breo Ellipta 200/25 1 puff daily. 19.Iron 325 p.o. q.h.s. 20.Cardizem CD 120 mg q.h.s. ALLERGIES: ADHESIVES AND CODEINE. PHYSICAL EXAMINATION: VITAL SIGNS: Vital signs on presentation, temperature 97.9, pulse 81, respiratory 18, blood pressure 147/67, Pulse ox 100% on 2 L. GENERAL APPEARANCE: Average built, sitting up in bed, tired-appearing. EYES: Pupils equal. Conjunctivae normal. HEENT: External appearance of nose and ears normal. Oral cavity dry. NECK: JVD not raised. Mass not palpable. RESPIRATORY: Effort normal. LUNGS: Diminished breath sounds. CARDIOVASCULAR: Heart sounds irregular. No edema. ABDOMEN: Soft, nontender. Liver and spleen not palpable. LYMPHATICS: No lymph nodes palpable in the neck and axilla. PSYCHIATRY: Patient is able answer simple questions. NEUROLOGICAL: Pupils equal. Cranial nerves grossly intact. Power and sensation grossly intact. INVESTIGATIONS: White count 7.4, hemoglobin 10.6, potassium 3.9, BUN 47, creatinine 1.93. It may be noted that patient's creatinine was normal last year, the earlier numbers creatinine was high. Calcium 11.9. Troponin 0.037, 0.037. UA positive for leukocyte esterase, WBC, sees some WBC clumps. ASSESSMENT: 1. Acute renal failure probably from patient being on diuretics and patient has a normal ejection fraction. 2. Persistent atrial fibrillation. The patient is chronically on Xarelto. 3. Hypercalcemia probably from dehydration and calcium supplement. 4. Troponin leak in the setting of renal failure. Patient does not have any acute coronary syndrome. 5. Acute urinary tract infection. 6. Medical debility. Patient uses a walker and wheelchair. 7. Normocytic anemia cause unknown. 8. Chronic obstructive pulmonary disease. 9. Chronic congestive heart failure, ejection fraction preserved. 10.Essential hypertension. 11.Hyperlipidemia. 12.Obstructive sleep apnea. PLAN: At this point, we will stop the patient's Lasix. Stop patient's vitamin D3. Hydrate the patient. The patient is started on IV ceftriaxone. Other home medications to continue. Cardiology was consulted. Care was discussed with the patient. Copy to Dr. Mccoy. CARLOS ALBERTO / SEAN: [id number] /
[2017-09-19] MEDS: MONTELUKAST 10 MG TAB PO SCH (20:41)
[2017-09-19] MEDS: DILTIAZEM CD 120 MG CAP.ER.24H PO SCH (20:41)
[2017-09-19] MEDS: RIVAROXABAN 15 MG TAB PO SCH (20:42)
[2017-09-19] MEDS: FERROUS SULFATE 325 MG TAB PO SCH (20:42)
[2017-09-19 21:11] LABS: Glucose,Whole Blood 108 mg/dL (75-99)
[2017-09-20 05:57] LABS: Glucose,Whole Blood 94 mg/dL (75-99)
[2017-09-20] MEDS: LACTATED RINGERS 1,000 ML IV SCH ×3 (06:13→16:45)
[2017-09-20] MEDS: INSULIN ASPART 100 UNIT/ML 1 ML 10 ML VIAL SQ SCH ×4 (06:14→21:01)
[2017-09-20 06:33] LABS: Calcium 10.9 mg/dL (8.4-10.2)
[2017-09-20] MEDS: SYMBICORT 160-4.5 MCG INHALER INHALATION SCH ×2 (07:41→19:35)
[2017-09-20] MEDS: IPRATROPIUM 0.5 MG/2.5 ML NEBU INHALATION SCH ×4 (07:41→20:01)
[2017-09-20] MEDS: FOLIC ACID 1 MG TAB PO SCH (09:05)
[2017-09-20] MEDS: POTASSIUM CHLORIDE ER 10 MEQ TAB.ER.PRT PO SCH (09:05)
[2017-09-20] MEDS: METOPROLOL TARTRATE 12.5 MG TAB PO SCH ×2 (09:05→21:09)
[2017-09-20] MEDS: SENNOSIDES-DOCUSATE SODIUM 1 EACH TAB PO SCH ×2 (09:05→21:09)
[2017-09-20] MEDS: SERTRALINE 100 MG TAB PO SCH (09:05)
[2017-09-20] MEDS: CINACALCET 30 MG TAB PO SCH (09:06)
[2017-09-20] MEDS: cefTRIAXone IN SWFI 1,000 MG/10 ML SYRINGE IVP SCH (09:22)
--- NOTE | 2017-09-20 10:11 | P.PN ---
Subjective Progress Note Date: 09/20/17 Principal diagnosis: Paroxysmal atrial fibrillation This is a pleasant 66-year-old female patient with a past medical history significant for paroxysmal atrial fibrillation, COPD, and underlying dementia, was admitted to the hospital after she presented to the emergency room complaining of nausea and vomiting. She denies having any nausea or vomiting at this point. She denies having any chest pain or chest discomfort, shortness of breath, dizziness or lightheadedness, or syncope. The patient does have history of paroxysmal atrial fibrillation and she is on oral anticoagulation. No established history of coronary artery disease or congestive heart failure. On follow-up with the patient today, she seems to be asymptomatic at this point. The blood pressure is low and the heart rate has been in the 100. She is on Cardizem as well as metoprolol for heart rate control and I would not decrease the dose of any of them because the patient will be more tachycardic. I am going to give the patient a bolus of IV fluid. Also the creatinine is a slightly elevated probably because of the hypotension. Objective - Vital Signs Vital signs: Vital Signs Temp 97 F L 09/20/17 08:00 Pulse 100 09/20/17 08:00 Resp 18 09/20/17 08:00 BP 92/71 09/20/17 08:00 Pulse Ox 100 09/20/17 08:00 Intake & Output 09/19/17 09/20/17 09/20/17 18:59 06:59 18:59 Intake Total 240 Balance 240 Weight 67.5 kg Intake: Oral 240 Other: # Voids 1 - Constitutional General appearance: Present: no acute distress - Respiratory Respiratory: bilateral: CTA - Cardiovascular Heart sounds: normal: S1, S2 - Labs CBC & Chem 7: 09/18/17 15:35 09/20/17 05:46 Labs: Abnormal Lab Results - Last 24 Hours (Table) 09/19/17 09/20/17 Range/Units 21:09 05:46 Sodium 134 L (137-145) mmol/L BUN 38 H (7-17) mg/dL Creatinine 2.10 H (0.52-1.04) mg/dL POC Glucose (mg/dL) 108 H (75-99) mg/dL Calcium 10.9 H (8.4-10.2) mg/dL Microbiology - Last 24 Hours (Table) 09/18/17 15:40 Urine Culture - Preliminary Urine,Catheterized Presumptive Staph aureus 09/18/17 17:00 Blood Culture - Preliminary Blood No Growth after 24 hours Assessment and Plan Assessment: Assessment #1 paroxysmal atrial fibrillation and the patient seems to be maintaining normal sinus mechanism #2 mildly abnormal cardiac enzymes does not reflect an acute coronary syndrome #3 chronic obstructive pulmonary disease #4 underlying dementia Plan #1 continue the current medical regimen. #2 give the patient a bolus of IV fluid #3 continue monitor the kidney function and electrolytes
[2017-09-20] MEDS ORDERED: SODIUM CHLORIDE 0.9% 250 ML IV ONE (10:13)
[2017-09-20] MEDS: IPRATROPIUM-ALBUTEROL 3 ML NEB INHALATION PRN ×2 (11:35→19:35)
[2017-09-20 12:24] LABS: Glucose,Whole Blood 81 mg/dL (75-99)
[2017-09-20 16:50] LABS: Glucose,Whole Blood 77 mg/dL (75-99)
--- NOTE | 2017-09-20 20:11 | PN ---
PROGRESS NOTE DATE OF SERVICE: 09/20/2017. PRESENTING COMPLAINT: Acute renal failure. INTERVAL HISTORY: This is a patient with atrial fibrillation. the same and acute renal failure. Lying in bed rather comfortable. Has been getting IV fluids. Per Cardiology, patient is back in sinus rhythm. Did tolerate a diet. REVIEW OF SYSTEMS: Done for constitutional, cardiovascular, GI, pulmonary and relevant findings as above. CURRENT MEDICATIONS: Reviewed that include IV fluids, IV ceftriaxone, Xarelto. PHYSICAL EXAMINATION: VITAL SIGNS: Temperature 97.3, pulse 59, respiratory 18, blood pressure 106/58, pulse ox 100% on 4 L. GENERAL APPEARANCE: Lying in bed, awake. EYES: Pupils equal. Conjunctivae normal. HEENT: External appearance of nose and ears normal. Oral cavity normal. Decreased hearing. NECK: JVD not raised. Mass not palpable. RESPIRATORY: Effort normal. LUNGS: Decreased breath sounds. CARDIOVASCULAR: Heart sounds regular. No edema. ABDOMEN: Soft, nontender. Liver and spleen not palpable. PSYCHIATRY: Awake, answering questions. INVESTIGATIONS: Potassium 4, BUN 28, creatinine 2.10. ASSESSMENT: 1. Acute renal failure probably the patient from being on diuretics with normal ejection fraction. 2. Paroxysmal atrial fibrillation chronically on Xarelto, now in sinus rhythm. 3. Hypercalcemia probably from dehydration and calcium supplementation. 4. Troponin leak in the setting of acute renal failure. No acute coronary syndrome. 5. Acute urinary tract infection. 6. Medical debility uses a walker and wheelchair. 7. Normocytic anemia. 8. Chronic obstructive pulmonary disease. 9. Chronic congestive heart failure, ejection fraction preserved. 10.Essential hypertension. 11.Hyperlipidemia. 12.Obstructive sleep apnea. PLAN: We will continue to hydrate the patient. Urine cultures growing some Staph aureus, only 10-49,000 urine colony count. Continue with IV fluids. Repeat electrolytes. MMODL / IJN: [id number] /
[2017-09-20 21:01] LABS: Glucose,Whole Blood 110 mg/dL (75-99)
[2017-09-20] MEDS: FERROUS SULFATE 325 MG TAB PO SCH (21:09)
[2017-09-20] MEDS: DILTIAZEM CD 120 MG CAP.ER.24H PO SCH (21:10)
[2017-09-20] MEDS: MONTELUKAST 10 MG TAB PO SCH (21:10)
[2017-09-20] MEDS: RIVAROXABAN 15 MG TAB PO SCH (21:10)
[2017-09-21 05:59] LABS: Glucose,Whole Blood 106 mg/dL (75-99)
[2017-09-21] MEDS: LACTATED RINGERS 1,000 ML IV SCH ×2 (06:22→11:27)
[2017-09-21] MEDS: INSULIN ASPART 100 UNIT/ML 1 ML 10 ML VIAL SQ SCH ×2 (06:22→12:00)
[2017-09-21 06:49] LABS: Calcium 10.3 mg/dL (8.4-10.2); Potassium 3.8 mmol/L (3.5-5.1)
[2017-09-21] MEDS: SENNOSIDES-DOCUSATE SODIUM 1 EACH TAB PO SCH (07:48)
[2017-09-21] MEDS: METOPROLOL TARTRATE 12.5 MG TAB PO SCH (07:48)
[2017-09-21] MEDS: cefTRIAXone IN SWFI 1,000 MG/10 ML SYRINGE IVP SCH (07:48)
[2017-09-21] MEDS: CINACALCET 30 MG TAB PO SCH (07:48)
[2017-09-21] MEDS: SERTRALINE 100 MG TAB PO SCH (07:48)
[2017-09-21] MEDS: POTASSIUM CHLORIDE ER 10 MEQ TAB.ER.PRT PO SCH (07:48)
[2017-09-21] MEDS: FOLIC ACID 1 MG TAB PO SCH (07:48)
[2017-09-21] MEDS: IPRATROPIUM 0.5 MG/2.5 ML NEBU INHALATION SCH ×3 (08:12→15:48)
[2017-09-21] MEDS: SYMBICORT 160-4.5 MCG INHALER INHALATION SCH (08:12)
--- NOTE | 2017-09-21 09:43 | P.PN ---
Subjective Progress Note Date: 09/21/17 Principal diagnosis: Paroxysmal atrial fibrillation This is a pleasant 66-year-old female patient with a past medical history significant for paroxysmal atrial fibrillation, COPD, and underlying dementia, was admitted to the hospital after she presented to the emergency room complaining of nausea and vomiting. She denies having any nausea or vomiting at this point. She denies having any chest pain or chest discomfort, but does have shortness of breath. On follow-up with the patient today, she seems to be asymptomatic at this point. The blood pressure and heart rate are within normal limits. The blood pressure was low yesterday and its better after I did give the patient a bolus of IV fluid. Objective - Vital Signs Vital signs: Vital Signs Temp 97.6 F 09/21/17 07:53 Pulse 60 09/21/17 08:23 Resp 18 09/21/17 07:53 BP 111/51 09/21/17 07:53 Pulse Ox 97 09/21/17 07:53 Intake & Output 09/20/17 09/21/17 09/21/17 18:59 06:59 18:59 Intake Total 1355 120 Balance 1355 120 Weight 67.5 kg 70.5 kg Intake: Intake, IV Titration 875 Amount Lactated Ringers 1,000 ml 875 @ 125 mls/hr IV .Q8H [facility] Rx#:[id number] Oral 480 120 Other: Voiding Method Bedpan Bedpan Diaper Diaper Incontinent Incontinent # Voids 3 5 - Constitutional General appearance: Present: no acute distress - Respiratory Respiratory: bilateral: CTA - Cardiovascular Rhythm: irregularly irregular Heart sounds: normal: S1, S2 - Labs CBC & Chem 7: 09/18/17 15:35 09/21/17 06:22 Labs: Abnormal Lab Results - Last 24 Hours (Table) 09/20/17 09/21/17 09/21/17 Range/Units 21:00 05:58 06:22 BUN 30 H (7-17) mg/dL Creatinine 1.72 H (0.52-1.04) mg/dL POC Glucose (mg/dL) 110 H 106 H (75-99) mg/dL Calcium 10.3 H (8.4-10.2) mg/dL Microbiology - Last 24 Hours (Table) 09/18/17 15:40 Urine Culture - Final Urine,Catheterized Methicillin resist S. aureus 09/18/17 17:00 Blood Culture - Preliminary Blood No Growth after 48 hours Assessment and Plan Assessment: Assessment #1 paroxysmal atrial fibrillation and the patient seems to be maintaining normal sinus mechanism #2 mildly abnormal cardiac enzymes does not reflect an acute coronary syndrome #3 chronic obstructive pulmonary disease #4 underlying dementia Plan #1 continue the current medical regimen. #2 from the cardiac vascular standpoint overview, the patient can be discharged home.
[2017-09-21 11:35] VITALS: BP 115/54; TEMP 97.7
[2017-09-21 12:09] LABS: Glucose,Whole Blood 101 mg/dL (75-99)
--- NOTE | 2017-09-21 14:23 | US ---
EXAMINATION TYPE: US kidneys/renal and bladder DATE OF EXAM: 09/21/2017 COMPARISON: Correlation CT 01/27/2017 CLINICAL HISTORY: 66-year-old female with renal failure. TECHNIQUE: Multiple sonographic images of the kidneys and bladder are obtained. FINDINGS: EXAM MEASUREMENTS: Right Kidney: 9.4 x 5.9 x 6.9 cm Left Kidney: 10.3 x 5.7 x 4.9 cm No hydronephrosis on either side. Right Kidney: Multiple cystic areas visualized, largest mid pole measuring 9.0 x 9.7 x 8.1 cm. Left Kidney: Multiple cystic areas visualized, largest upper pole measuring 6.0 x 5.0 x 6.0 cm. Bladder: wnl Bilateral Jets seen: Yes IMPRESSION: 1. No hydronephrosis. 2. Bilateral multiple renal cysts, largest measuring 9.7 cm on the right
--- NOTE | 2017-09-21 15:18 | DS ---
DISCHARGE SUMMARY DATE OF ADMISSION: 09/18/2017 DATE OF DISCHARGE: 09/21/2017 FINAL DIAGNOSES: 1. Acute urinary tract infection, likely from cystitis. 2. Persistent atrial fibrillation, chronically on Xarelto. 3. Hypercalcemia. Patient is on calcium supplements. 4. Troponin leak in the setting of renal failure, no acute coronary artery syndrome. 5. Medical debility, uses a walker and a wheelchair. 6. Normocytic anemia, probably secondary to renal disease. 7. Chronic obstructive pulmonary disease. 8. Chronic congestive heart failure from diastolic dysfunction, ejection fraction 55%- 60%. 9. Essential hypertension. 10.Hyperlipidemia. 11.Obstructive sleep apnea. 12.Patient does not have acute renal failure. 13.Chronic kidney disease stage III, probably from nephrosclerosis. CONSULTATION: Dr. Pereira from Cardiology. HOSPITAL COURSE: This patient presented weak and tired. Patient initially felt to have acute renal failure, actually has chronic kidney disease with multiple cysts bilaterally. There is no hydronephrosis. Patient's creatinine is 1.72. Patient was treated for a UTI. Calcium supplementation was discontinued. Patient is tolerating a diet, comfortable. Seen by Dr. Pereira. No further intervention. A 2D echo showed preserved LV function. PHYSICAL EXAMINATION: LUNGS: Decreased breath sounds. CARDIOVASCULAR: First and second sounds are normal. DISCHARGE MEDICATIONS: 1. Singulair 10 mg p.o. q.h.s. 2. Zoloft 100 mg a day. 3. Tylenol 650 mg q.4 p.r.n. 4. Iron 325 q.h.s. 5. DuoNeb q.6 p.r.n. 6. Spiriva 1 capsule daily. 7. Milk of magnesia 25 mg q.72 hours p.r.n. 8. Cardizem CD 120 mg q.h.s. 9. ProStat supplement 30 mL p.o. b.i.d. 10.Dulcolax 10 mg rectal 3 days p.r.n. 11.Sensipar 30 mg p.o. daily. 12.Breo Ellipta 200/25 one puff daily. 13.Folic acid 0.8 mg p.o. daily. 14.Lasix 20 mg p.o. daily. 15.Lopressor 12.5 p.o. b.i.d. 16.Potassium 10 mEq p.o. daily. 17.Xarelto 50 mg p.o. q.h.s. 18.Senokot S 1 tablet p.o. b.i.d. 19.Keflex 250 mg q.8 fifteen capsules. 20.[place] 5 two tablets q.4 p.r.n. DISPOSITION: [facility]. Follow up with Dr. Mccoy. LABS: CBC, BMP, calcium in 3 days. MMODL / IJN: [id number] /
[2017-09-21 15:55] VITALS: PULSE 60
== END 2017-09-21 16:39 ==
LOC: EC 15:19 → INTOOBSV 16:49 → 6SEL 16:49
PROVIDERS: ADMIT Hospitalist; ATTEND Hospitalist
DX: N39.0 Urinary tract infection, site not specified (principal); I48.0 Paroxysmal atrial fibrillation; I13.0 Hypertensive heart and chronic kidney disease with heart failure and stage 1 through stage 4 chronic kidney disease, or unspecified chronic kidney disease; I50.32 Chronic diastolic (congestive) heart failure; N18.3 Chronic kidney disease, stage 3 (moderate); F03.90 Unspecified dementia, unspecified severity, without behavioral disturbance, psychotic disturbance, mood disturbance, and anxiety; N17.9 Acute kidney failure, unspecified; E11.22 Type 2 diabetes mellitus with diabetic chronic kidney disease; E78.5 Hyperlipidemia, unspecified; G47.33 Obstructive sleep apnea (adult) (pediatric); Z99.89 Dependence on other enabling machines and devices; F41.9 Anxiety disorder, unspecified; J44.9 Chronic obstructive pulmonary disease, unspecified; Z68.28 Body mass index [BMI] 28.0-28.9, adult; E66.01 Morbid (severe) obesity due to excess calories; E83.52 Hypercalcemia; D64.9 Anemia, unspecified; Z79.01 Long term (current) use of anticoagulants; Z79.899 Other long term (current) drug therapy; Z79.51 Long term (current) use of inhaled steroids; Z88.5 Allergy status to narcotic agent; Z91.048 Other nonmedicinal substance allergy status; Z86.14 Personal history of Methicillin resistant Staphylococcus aureus infection; Z83.1 Family history of other infectious and parasitic diseases; Z82.3 Family history of stroke
CPT/HCPCS: 96374 ×2; 99285 ×2; 96376 ×2; 96361 ×2; 36415; 94640 ×6; 94760; 93005; 93306; 80061; 80053; 80048 ×2; 82150; 82550 ×2; 82553 ×2; 83690; 84484 ×2; 85025; 81001; 87040; 87086; 87077; 87186; 83036; 76770; G0378 ×4; J0696 ×4

== ENCOUNTER 2018-03-23 21:16 | Emergency (ER) | payer MEDICARE, OTHER ==
[2018-03-23 21:20] VITALS: RESP 18; TEMP 99.4
[2018-03-23] MEDS ORDERED: DILTIAZEM ORAL 60 MG TAB PO STA (22:31)
[2018-03-23] MEDS ORDERED: ALPRAZolam 0.5 MG TAB PO STA (22:32)
[2018-03-23 22:35] VITALS: BP 96/52
[2018-03-23 22:37] VITALS: PULSE 93
[2018-03-24] MEDS ORDERED: METOPROLOL TARTRATE 25 MG TAB ONE (00:55)
== END 2018-03-24 01:57 | disposition home or self-care (01) ==
LOC: EC 21:16
DX: I48.91 Unspecified atrial fibrillation (principal); F41.9 Anxiety disorder, unspecified
CPT/HCPCS: 99285

== ENCOUNTER 2019-05-10 19:59 | Inpatient (IN) | payer MEDICARE, OTHER ==
[2019-05-10] MEDS ORDERED: ALBUTEROL NEBULIZED 2.5 MG/3 ML INHALATION STA (20:23)
[2019-05-10] MEDS ORDERED: DILTIAZEM 5 MG/ML 10 ML VIAL IVP STA (20:23)
[2019-05-10] MEDS ORDERED: methylPREDNISolone SOD SUCCI 125 MG/2 ML VIAL IV STA (20:23)
[2019-05-10] MEDS ORDERED: IPRATROPIUM 0.5 MG/2.5 ML NEBU INHALATION STA (20:23)
[2019-05-10] MEDS ORDERED: LORazepam 2 MG/ML INJ IV STA (20:23)
--- NOTE | 2019-05-10 20:23 | ED ---
SOB HPI - General Chief Complaint: Shortness of Breath Stated Complaint: SOB Time Seen by Provider: 05/10/19 20:10 Source: patient, EMS, RN notes reviewed, old records reviewed Mode of arrival: EMS Limitations: no limitations - History of Present Illness Initial Comments: This is a 68-year-old female DF for evaluation of shortness of breath. Patient has been to this hospital before regarding her shortness of breath she is placed on BiPAP on arrival is a poor historian secondary to current clinical condition. Patient is denying any chest pain or fevers. She is brought in by EMS history obtained from EMS and prior charting staff MD Complaint: shortness of breath, cough -: days(s) Severity: severe Severity scale (1-10): 10 Consistency: constant Improves With: oxygen, rest, bronchodilators, medication Worsens With: exertion Known History Of: COPD, congestive heart failure Context: recent URI Associated Symptoms: chest pain, pain with inspiration, fever, cough Treatments Prior to Arrival: none - Related Data Home Medications Medication Instructions Recorded Confirmed Magnesium Hydroxide [Milk of 2,400 mg PO DAILY PRN 10/19/16 05/10/19 Magnesia] Diltiazem Cd [Cardizem CD] 120 mg PO HS 10/22/16 05/10/19 Cinacalcet [Sensipar] 30 mg PO DAILY 09/18/17 05/10/19 Rivaroxaban [Xarelto] 15 mg PO HS 09/18/17 05/10/19 Sennosides-Docusate Sodium 1 tab PO BID 09/18/17 05/10/19 [Senokot-S] HYDROcodone/APAP 5-325MG [[place] 2 tab PO BID 03/23/18 05/10/19 5-325] Famotidine [Pepcid] 20 mg PO DAILY@0800 05/10/19 05/10/19 LORazepam [Ativan] 0.5 mg PO BID 05/10/19 05/10/19 Mag Hydrox/Aluminum Hyd/Simeth 10 ml PO Q4H PRN 05/10/19 05/10/19 [Mylanta Maximum Strength Liq] Polyethylene Glycol 3350 [Miralax] 17 gm PO HS 05/10/19 05/10/19 Sertraline [Zoloft] 150 mg PO DAILY 05/10/19 05/10/19 Allergies Allergy/AdvReac Type Severity Reaction Status Date / Time adhesive Allergy Rash/Hives Verified 05/10/19 20:45 codeine Allergy Rash/Hives Verified 05/10/19 20:45 Review of Systems ROS Statement: Those systems with pertinent positive or pertinent negative responses have been documented in the HPI. ROS Other: All systems not noted in ROS Statement are negative. Past Medical History Past Medical History: Atrial Fibrillation, Asthma, Heart Failure, COPD, Demen tia, Diabetes Mellitus, Hyperlipidemia, Hypertension, Renal Disease, Sleep Apnea/CPAP/BIPAP Additional Past Medical History / Comment(s): Morbid obesity, obstructive sleep apnea maintained on CPAP , uti, anemia, kidney cyst History of Any Multi-Drug Resistant Organisms: MRSA Date of last positivie culture/infection: 12/15/16 MDRO Source:: abdomen Past Surgical History: Breast Surgery, Hernia Repair Additional Past Surgical History / Comment(s): cataracts, panniculectomy and I&D of abdominal mass Past Anesthesia/Blood Transfusion Reactions: No Reported Reaction Past Psychological History: Anxiety Smoking Status: Never smoker Past Alcohol Use History: None Reported Past Drug Use History: None Reported - Past Family History Mother Family Medical History: CVA/TIA Father Additional Family Medical History / Comment(s): WAS INJURED IN [facility], also had hx tb but from complications of his injuries Brother(s) Additional Family Medical History / Comment(s): at age 2 years 10months tb General Exam Limitations: no limitations General appearance: alert, in no apparent distress, appears intoxicated, in distress Head exam: Present: atraumatic, normocephalic, normal inspection Eye exam: Present: normal appearance, PERRL, EOMI. Absent: scleral icterus, conjunctival injection, periorbital swelling ENT exam: Present: normal exam, mucous membranes moist Neck exam: Present: normal inspection. Absent: tenderness, meningismus, lym phadenopathy Respiratory exam: Present: normal lung sounds bilaterally. Absent: respiratory distress, wheezes, rales, rhonchi, stridor Cardiovascular Exam: Present: tachycardia, irregular rhythm, normal heart sounds. Absent: systolic murmur, diastolic murmur, rubs, gallop, clicks GI/Abdominal exam: Present: soft, normal bowel sounds. Absent: distended, tenderness, guarding, rebound, rigid Extremities exam: Present: normal inspection, full ROM, normal capillary refill. Absent: tenderness, pedal edema, joint swelling, calf tenderness Back exam: Present: normal inspection Neurological exam: Present: alert, oriented X3, CN II-XII intact Psychiatric exam: Present: normal affect, normal mood Skin exam: Present: warm, dry, intact, normal color. Absent: rash Course Vital Signs 05/10/19 05/10/19 05/10/19 20:01 20:30 20:39 Temperature 98 F Pulse Rate 143 H 152 H 144 H Respiratory 21 18 23 Rate Blood Pressure 117/97 102/81 O2 Sat by Pulse 100 98 Oximetry 05/10/19 05/10/19 05/10/19 20:45 21:00 21:02 Temperature Pulse Rate 149 H 98 156 H Respiratory 20 20 21 Rate Blood Pressure 109/86 120/74 O2 Sat by Pulse 99 99 Oximetry 05/10/19 05/10/19 21:30 22:00 Temperature Pulse Rate 96 95 Respiratory 20 20 Rate Blood Pressure 101/76 129/64 O2 Sat by Pulse 99 100 Oximetry - Reevaluation(s) Reevaluation #1: Medical records reviewed Spoke with patient updated and results Symptoms improved here in the ER with medication Patient feeling better Medical Decision Making - Medical Decision Making 68 female for evaluation patient who presents to the ER with evaluation of cough and congestion shortness of breath placed on BiPAP COPD times CHF with hypoxia. Patient will be admitted for further evaluation management - Lab Data Result diagrams: 05/10/19 20:19 05/12/19 14:04 Lab Results 05/10/19 05/10/19 05/10/19 Range/Units 20:19 20:19 20:19 WBC 4.5 (3.8-10.6) k/uL RBC 3.65 L (3.80-5.40) m/uL Hgb 10.2 L (11.4-16.0) gm/dL Hct 31.7 L (34.0-46.0) % MCV 86.9 (80.0-100.0) fL MCH 27.8 (25.0-35.0) pg MCHC 32.0 (31.0-37.0) g/dL RDW 14.0 (11.5-15.5) % Plt Count 212 (150-450) k/uL Neutrophils % (Manual) 54 % Band Neutrophils % 2 % Lymphocytes % (Manual) 31 % Monocytes % (Manual) 6 % Eosinophils % (Manual) 7 % Neutrophils # (Manual) 2.50 (1.3-7.7) k/uL Lymphocytes # (Manual) 1.40 (1.0-4.8) k/uL Monocytes # (Manual) 0.27 (0-1.0) k/uL Eosinophils # (Manual) 0.32 (0-0.7) k/uL Nucleated RBCs 0 (0-0) /100 WBC Manual Slide Review Performed Large Platelets Present Polychromasia Present Hypochromasia Slight PT (9.0-12.0) sec INR (<1.2) APTT (22.0-30.0) sec Sodium 137 (137-145) mmol/L Potassium 4.2 (3.5-5.1) mmol/L Chloride 101 (98-107) mmol/L Carbon Dioxide 26 (22-30) mmol/L Anion Gap 10 mmol/L BUN 30 H (7-17) mg/dL Creatinine 1.20 H (0.52-1.04) mg/dL Est GFR (CKD-EPI)AfAm 53 (>60 ml/min/1.73 sqM) Est GFR (CKD-EPI)NonAf 46 (>60 ml/min/1.73 sqM) Glucose 207 H (74-99) mg/dL Plasma Lactic Acid Russ 1.6 (0.7-2.0) mmol/L Calcium 7.7 L (8.4-10.2) mg/dL Magnesium 1.8 (1.6-2.3) mg/dL Total Bilirubin 0.1 L (0.2-1.3) mg/dL AST 29 (14-36) U/L ALT 13 (4-34) U/L Alkaline Phosphatase 87 (38-126) U/L Troponin I (0.000-0.034) ng/mL NT-Pro-B Natriuret Pep pg/mL Total Protein 6.6 (6.3-8.2) g/dL Albumin 3.7 (3.5-5.0) g/dL 05/10/19 05/10/19 05/10/19 Range/Units 20:19 20:19 20:19 WBC (3.8-10.6) k/uL RBC (3.80-5.40) m/uL Hgb (11.4-16.0) gm/dL Hct (34.0-46.0) % MCV (80.0-100.0) fL MCH (25.0-35.0) pg MCHC (31.0-37.0) g/dL RDW (11.5-15.5) % Plt Count (150-450) k/uL Neutrophils % (Manual) % Band Neutrophils % % Lymphocytes % (Manual) % Monocytes % (Manual) % Eosinophils % (Manual) % Neutrophils # (Manual) (1.3-7.7) k/uL Lymphocytes # (Manual) (1.0-4.8) k/uL Monocytes # (Manual) (0-1.0) k/uL Eosinophils # (Manual) (0-0.7) k/uL Nucleated RBCs (0-0) /100 WBC Manual Slide Review Large Platelets Polychromasia Hypochromasia PT 11.6 (9.0-12.0) sec INR 1.1 (<1.2) APTT 41.5 H (22.0-30.0) sec Sodium (137-145) mmol/L Potassium (3.5-5.1) mmol/L Chloride (98-107) mmol/L Carbon Dioxide (22-30) mmol/L Anion Gap mmol/L BUN (7-17) mg/dL Creatinine (0.52-1.04) mg/dL Est GFR (CKD-EPI)AfAm (>60 ml/min/1.73 sqM) Est GFR (CKD-EPI)NonAf (>60 ml/min/1.73 sqM) Glucose (74-99) mg/dL Plasma Lactic Acid Russ (0.7-2.0) mmol/L Calcium (8.4-10.2) mg/dL Magnesium (1.6-2.3) mg/dL Total Bilirubin (0.2-1.3) mg/dL AST (14-36) U/L ALT (4-34) U/L Alkaline Phosphatase (38-126) U/L Troponin I 0.012 (0.000-0.034) ng/mL NT-Pro-B Natriuret Pep 3430 pg/mL Total Protein (6.3-8.2) g/dL Albumin (3.5-5.0) g/dL - EKG Data -: EKG Interpreted by Me (EKG shows sinus ventricular tachycardia rate of 151, QRS 90, QTC 485) - Radiology Data Radiology results: report reviewed (Chest x-ray negative for significant acute disease pelvis x-ray negative for traumatic injury), image reviewed Critical Care Time Critical Care Time: Yes Total Critical Care Time: 31 Disposition Clinical Impression: Acute exacerbation of chronic obstructive airways disease, Atrial fibrillation with RVR, Hypoxia Disposition: ADMITTED IP TO THIS HOSP Condition: Serious Is patient prescribed a controlled substance at d/c from ED?: No
[2019-05-10 20:40] LABS: HCT 31.7 % (34.0-46.0); HGB 10.2 gm/dL (11.4-16.0); Hypochromasia Slight; MCH 27.8 pg (25.0-35.0); MCV 86.9 fL (80.0-100.0); Mean Platelet Volume 8.1; Platelet Count 212 k/uL (150-450); RBC 3.65 m/uL (3.80-5.40); WBC 4.5 k/uL (3.8-10.6)
[2019-05-10 20:45] LABS: INR 1.1 (<1.2); Partial Thromboplastin Time 41.5 sec (22.0-30.0); Prothrombin Time 11.6 sec (9.0-12.0)
--- NOTE | 2019-05-10 20:46 | XR ---
EXAMINATION TYPE: XR chest 1V portable DATE OF EXAM: 05/10/2019 COMPARISON: 10/19/2016 HISTORY: Short of breath TECHNIQUE: FINDINGS: There is no heart failure nor confluent pneumonic infiltrate. Costophrenic angles are clear . There are chest leads. Bony thorax appears intact. IMPRESSION: No active cardiopulmonary disease. No change.
[2019-05-10 21:04] LABS: Band Neutrophils % 2 %; Eosinophils # (M) 0.32 k/uL (0-0.7); Monocytes # (M) 0.27 k/uL (0-1.0); Neutrophils % (M) 54 %; Nucleated Red Blood Cells 0 /100 WBC (0-0); Total Cells Counted 100
[2019-05-10 21:05] LABS: Large Platelets Present; Polychromasia Present
[2019-05-10 21:07] LABS: Albumin 3.7 g/dL (3.5-5.0); Calcium 7.7 mg/dL (8.4-10.2); Magnesium 1.8 mg/dL (1.6-2.3); Potassium 4.2 mmol/L (3.5-5.1); Total Bilirubin 0.1 mg/dL (0.2-1.3); Total Protein 6.6 g/dL (6.3-8.2)
[2019-05-10] MEDS ORDERED: DILTIAZEM DRIP BOLUS FROM BAG 1 MG SOLN IV ONE (21:07)
[2019-05-10] MEDS ORDERED: DILTIAZEM 125 MG in SODIUM CHLORIDE 0.9% 100 ML IV SCH (21:15)
--- NOTE | 2019-05-10 22:06 | XR ---
EXAMINATION TYPE: XR Hip RT and AP Pelvis DATE OF EXAM: 05/10/2019 COMPARISON: CT scan 01/27/2017 HISTORY: Pain 3 views TECHNIQUE: 3 views FINDINGS: The pelvic ring is intact. There is deformity of the left hip joint with erosion of the sushila tabulum and also some erosion of the articular surface of the femoral head. I see no acute fracture n or dislocation. Sacroiliac joints are intact. 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 Septic arthritis is possible. No acute fracture see n.
[2019-05-10] MEDS ORDERED: IPRATROPIUM-ALBUTEROL 3 ML NEB INHALATION STA (22:18)
[2019-05-10] MEDS ORDERED: NITROGLYCERIN SL TABS 0.4 MG TAB SUBLINGUAL PRN (22:18)
[2019-05-10] MEDS ORDERED: MORPHINE SULFATE 4 MG/ML SYRINGE IV PRN (22:18)
[2019-05-10] MEDS ORDERED: ASPIRIN 81 MG PO STA (22:18)
[2019-05-10] MEDS: SODIUM CHLORIDE 0.9% 1,000 ML IV SCH (22:56)
[2019-05-11] MEDS ORDERED: MAGNESIUM HYDROXIDE 2,400 MG/10 ML CUP PO PRN (00:19)
[2019-05-11] MEDS: methylPREDNISolone SOD SUCCI 125 MG/2 ML VIAL IV SCH ×4 (02:31→17:35)
[2019-05-11 03:09] LABS: Cholesterol 219 mg/dL (<200); HDL Cholesterol 37 mg/dL (40-60); LDL Cholesterol,Calculated 161 mg/dL (0-99); Triglycerides 103 mg/dL (<150)
[2019-05-11 06:18] LABS: Glucose,Whole Blood 180 mg/dL (75-99)
[2019-05-11] MEDS: INSULIN ASPART (NovoLOG) 100 UNIT/ML VIAL SQ SCH ×4 (07:01→22:03)
--- NOTE | 2019-05-11 08:38 | P.CRDCN ---
History of Present Illness Consult date: 05/11/19 Requesting physician: Eddi Munoz Chief complaint: Shortness of breath History of present illness: This is a 68-year-old female most of the history was obtained from the medical record as the patient is quite groggy this morning, and does have underlying dementia. She has a past medical history significant for paroxysmal atrial fibrillation, hyperlipidemia, asthma, COPD, chronic anemia, diabetes, hypertension, sleep apnea, morbid obesity, apparently was brought to the hospital because of the symptoms of shortness of breath. A cardiology consultation was requested because of atrial fibrillation. Her EKG on presentation here showed atrial fibrillation with a rapid ventricular response. Chest x-ray did not reveal any active cardiopulmonary disease. Patient was complaining apparently in the emergency room of some discomfort in her pelvic area, an x-ray of the right hip and pelvis was performed which revealed advanced arthritic changes in the right hip joint with superior migration of the femoral head that is progressed as compared with old CAT scan. Blood pressure on arrival here 117/97 with a heart rate of 140, 100% on BiPAP. Laboratory data was reviewed, white blood cell count 4.5, hemoglobin 10.2, platelet count 212. Sodium 137, potassium 4.2, BUN 30, creatinine 1.2, magnesium 1.8, troponin 0.012, 0.014. BNP level 3430. Cholesterol 219, LDL 161, HDL 37, cholesterol 13. At the time of my examination this morning, patient is quite groggy, does feel that she is short of breath. Past Medical History Past Medical History: Atrial Fibrillation, Asthma, Heart Failure, COPD, Dementia, Diabetes Mellitus, Hyperlipidemia, Hypertension, Renal Disease, Sleep Apnea/CPAP/BIPAP Additional Past Medical History / Comment(s): Morbid obesity, obstructive sleep apnea maintained on CPAP , uti, anemia, kidney cyst History of Any Multi-Drug Resistant Organisms: MRSA Date of last positivie culture/infection: 12/15/16 MDRO Source:: abdomen Past Surgical History: Breast Surgery, Hernia Repair Additional Past Surgical History / Comment(s): cataracts, panniculectomy and I&D of abdominal mass Past Anesthesia/Blood Transfusion Reactions: No Reported Reaction Past Psychological History: Anxiety Additional Psychological History / Comment(s): pt currently resides at [facility], up with walker/wheelchair Smoking Status: Unknown if ever smoked Past Alcohol Use History: None Reported Past Drug Use History: None Reported - Past Family History Mother Family Medical History: CVA/TIA Father Additional Family Medical History / Comment(s): WAS INJURED [place], also had hx tb but from complications of his injuries Brother(s) Additional Family Medical History / Comment(s): at age 2 years 10months tb Medications and Allergies Home Medications Medication Instructions Recorded Confirmed Type Magnesium Hydroxide [Milk of 2,400 mg PO DAILY PRN 10/19/16 05/10/19 History Magnesia] Diltiazem Cd [Cardizem CD] 120 mg PO HS 10/22/16 05/10/19 History Cinacalcet [Sensipar] 30 mg PO DAILY 09/18/17 05/10/19 History Rivaroxaban [Xarelto] 15 mg PO HS 09/18/17 05/10/19 History Sennosides-Docusate Sodium 1 tab PO BID 09/18/17 05/10/19 History [Senokot-S] HYDROcodone/APAP 5-325MG [[place] 2 tab PO BID 03/23/18 05/10/19 History 5-325] Famotidine [Pepcid] 20 mg PO DAILY@0800 05/10/19 05/10/19 History LORazepam [Ativan] 0.5 mg PO BID 05/10/19 05/10/19 History Mag Hydrox/Aluminum Hyd/Simeth 10 ml PO Q4H PRN 05/10/19 05/10/19 History [Mylanta Maximum Strength Liq] Polyethylene Glycol 3350 [Miralax] 17 gm PO HS 05/10/19 05/10/19 History Sertraline [Zoloft] 150 mg PO DAILY 05/10/19 05/10/19 History Allergies Allergy/AdvReac Type Severity Reaction Status Date / Time adhesive Allergy Rash/Hives Verified 05/10/19 20:45 codeine Allergy Rash/Hives Verified 05/10/19 20:45 Physical Exam Vitals: Vital Signs Temp Pulse Pulse Resp BP BP Pulse Ox 05/11/19 04:00 66 12 120/55 100 05/11/19 00:00 77 20 138/68 100 05/10/19 22:00 95 20 129/64 100 05/10/19 21:30 96 20 101/76 99 05/10/19 21:02 156 H 21 05/10/19 21:00 98 20 120/74 99 05/10/19 20:45 149 H 20 109/86 99 05/10/19 20:39 144 H 23 05/10/19 20:30 152 H 18 102/81 98 05/10/19 20:01 98 F 143 H 21 117/97 100 Intake and Output 05/10/19 05/11/19 05/11/19 22:59 06:59 14:59 Intake Total 240 7.917 0 Balance 240 7.917 0 Intake: Intake, IV Titration 7.917 Amount Diltiazem 125 mg In 7.917 Sodium Chloride 0.9% 100 ml @ 5 MG/HR 5 mls/hr IV .Q24H [facility] Rx#:[id number] Oral 240 0 Other: Weight 63.503 kg 73.5 kg PHYSICAL EXAMINATION: HEENT: Head is atraumatic, normocephalic. Pupils equal, round. Neck is supple. There is no elevated jugular venous pressure. HEART EXAMINATION: S1 and S2 irregular irregular, systolic murmur heard CHEST EXAMINATION: Lungs reveal diminished air entry to bilateral bases ABDOMEN: Abdomen is morbidly obese, no tenderness noted. Abdominal apron is reaching to the patient's upper thighs. She also has a large incisional hernia unchanged from prior.. EXTREMITIES: 1+ peripheral pulses with trace evidence of peripheral edema and no calf tenderness noted. NEUROLOGIC patient is groggy, confused. Results 05/10/19 20:19 05/10/19 20:19 Cardiac Enzymes 05/10/19 05/10/19 05/11/19 Range/Units 20:19 20:19 02:22 AST 29 (14-36) U/L Troponin I 0.012 0.014 (0.000-0.034) ng/mL Coagulation 05/10/19 Range/Units 20:19 PT 11.6 (9.0-12.0) sec APTT 41.5 H (22.0-30.0) sec Lipids 05/11/19 Range/Units 02:22 Triglycerides 103 (<150) mg/dL Cholesterol 219 H (<200) mg/dL HDL Cholesterol 37 L (40-60) mg/dL CBC 05/10/19 Range/Units 20:19 WBC 4.5 (3.8-10.6) k/uL RBC 3.65 L (3.80-5.40) m/uL Hgb 10.2 L (11.4-16.0) gm/dL Hct 31.7 L (34.0-46.0) % Plt Count 212 (150-450) k/uL Comprehensive Metabolic Panel 05/10/19 Range/Units 20:19 Sodium 137 (137-145) mmol/L Potassium 4.2 (3.5-5.1) mmol/L Chloride 101 (98-107) mmol/L Carbon Dioxide 26 (22-30) mmol/L BUN 30 H (7-17) mg/dL Creatinine 1.20 H (0.52-1.04) mg/dL Glucose 207 H (74-99) mg/dL Calcium 7.7 L (8.4-10.2) mg/dL AST 29 (14-36) U/L ALT 13 (4-34) U/L Alkaline Phosphatase 87 (38-126) U/L Total Protein 6.6 (6.3-8.2) g/dL Albumin 3.7 (3.5-5.0) g/dL Current Medications Generic Name Dose Route Start Last Admin Trade Name Freq PRN Reason Stop Dose Admin Hydrocodone Bitart/Acetaminophen 2 each 05/11/19 09:00 [place] 5-325 PO BID SHAGUFTA Al Hydroxide/Mg Hydroxide 10 ml 05/11/19 00:19 Maalox PO Q4H PRN Indigestion Albuterol Sulfate 2.5 mg 05/11/19 08:00 Ventolin Nebulized INHALATION RT-QID [facility] Aspirin 325 mg 05/11/19 09:00 Aspirin PO DAILY [facility] Cinacalcet 30 mg 05/11/19 09:00 Sensipar PO DAILY [facility] Famotidine 20 mg 05/11/19 08:00 Pepcid PO DAILY@0800 SHAGUFTA Diltiazem HCl 125 mg/ Sodium 125 mls @ 5 mls/hr 05/10/19 21:15 05/10/19 23:04 Chloride IV 10 mg/hr .Q24H SHAGUFTA 10 mls/hr Infusion 5 MG/HR Sodium Chloride 1,000 mls @ 100 mls/hr 05/10/19 22:30 05/10/19 22:56 Saline 0.9% IV 100 mls/hr .Q10H SHAGUFTA Administration Insulin Aspart 0 unit 05/11/19 07:30 05/11/19 07:01 Novolog SQ 2 unit ACHS SHAGUFTA Administration Protocol Lorazepam 0.5 mg 05/11/19 09:00 Ativan PO BID SHAGUFTA Magnesium Hydroxide 2,400 mg 05/11/19 00:19 Milk Of Magnesia PO DAILY PRN Constipation Methylprednisolone Sodium Succinate 60 mg 05/11/19 00:00 05/11/19 06:09 Solu-Medrol IV 60 mg Q6HR SHAGUFTA Administration Morphine Sulfate 4 mg 05/10/19 22:18 Morphine Sulfate (Inj) IV Q4HR PRN Chest Pain Nitroglycerin 0.4 mg 05/10/19 22:18 Nitrostat SUBLINGUAL Q5M PRN Chest Pain Polyethylene Glycol 17 gm 05/11/19 21:00 Miralax PO HS SHAGUFTA Rivaroxaban 15 mg 05/11/19 21:00 Xarelto PO HS SHAGUFTA Senna/Docusate Sodium 1 each 05/11/19 09:00 Senokot-S PO BID [facility] Sertraline HCl 150 mg 05/11/19 09:00 Zoloft PO DAILY [facility] Sodium Chloride 10 ml 05/11/19 09:00 Saline Flush IV BID [facility] Intake and Output 05/10/19 05/11/19 05/11/19 22:59 06:59 14:59 Intake Total 240 7.917 0 Balance 240 7.917 0 Intake: Intake, IV Titration 7.917 Amount Diltiazem 125 mg In 7.917 Sodium Chloride 0.9% 100 ml @ 5 MG/HR 5 mls/hr IV .Q24H [facility] Rx#:[id number] Oral 240 0 Other: Weight 63.503 kg 73.5 kg 05/10/19 20:19 05/10/19 20:19 EKG Interpretations (text) EKG shows atrial fibrillation with a rapid ventricular response Assessment and Plan Plan: Assessment and plan #1 atrial fibrillation with rapid ventricular response #2 morbid obesity #3 asthma #4 COPD #5 diabetes #6 hyperlipidemia #7 hypertension #8 sleep apnea #9 dementia Plan We will obtain an echocardiogram with Doppler study as well as a TSH level. Discontinue Cardizem drip and increase the home dose of Cardizem to 240 daily. Continue Xarelto. Start the patient on a statin. Discontinue aspirin. DNP note has been reviewed, I agree with a documented findings and plan of care. Patient was seen and examined.
[2019-05-11] MEDS ORDERED: ASPIRIN 81 MG PO SCH (09:00)
[2019-05-11] MEDS ORDERED: ASPIRIN 325 MG TAB PO SCH (09:00)
[2019-05-11] MEDS: ALBUTEROL NEBULIZED 2.5 MG/3 ML INHALATION SCH ×4 (09:11→20:53)
--- NOTE | 2019-05-11 09:42 | P.CNPUL ---
History of Present Illness Consult date: 05/11/19 Reason for consult: dyspnea, chest pain, other Chief complaint: Palpitations, dyspnea, shortness of breath History of present illness: 68-year-old white female patient of Dr. Mccoy, a resident of the [facility], with past medical history of hypertension, chronic kidney disease stage III, chronic anemia, obstructive sleep apnea on CPAP, paroxysmal atrial fibrillation, type 2 diabetes mellitus without complications, it bronchial asthma, unspecified, GERD/reflux, chronic congestive heart failure, hy perlipidemia, major depressive disorder, vascular dementia and questionable history of tuberculosis in childhood, who was brought into the emergency department on O2 25 2020 evaluation of tachycardia, difficulty breathing with wheezing complaints of palpitations. Patient had a recent upper respiratory infection. Her symptoms were also associated with chest discomfort, pain with inspiration, fever and cough. EKG showed atrial fibrillation with rapid ventricular response with a rate of 151, patient was started on Cardizem drip for rate control, chest x-ray was completed showing no active cardiopulmonary disease. Right hip and pelvis x-ray was completed showing advanced arthritic changes in the right hip joint with superior migration of the femoral head which progressed since prior computed tomography scan, and possibility of septic arthritis was not excluded, but no acute fractures were seen. Patient has been afebrile while in the hospital, no evidence of leukocytosis, blood cell count is 4.5, immobile globin is 10.2, correlation profile was within normal limits, electrolytes were unremarkable, B1 is 30 creatinine is 1.2, troponins were 0.012, and 0.014, proBNP was 3430, lactic acid was normal at 1.6. This morning she remains on Cardizem drip at 5 mg per hour, she is in sinus rhythm with a controlled rate, her breathing is comfortable, she was on CPAP overnight with a pressure of 15 cm of water, she has been placed back on nasal cannula, and she denies difficulty breathing. Patient is on Xarelto. for history of paroxysmal atrial fibrillation Patient is a lifetime nonsmoker. She denies ever seeing a commercial sales specialist, and she is not on any maintenance inhalers for breathing treatments. Review of Systems All systems: negative Constitutional: Denies chills, Denies fever Eyes: denies blurred vision, denies pain Ears, nose, mouth and throat: Denies headache, Denies sore throat Cardiovascular: Reports chest pain, Reports palpitations, Reports shortness of breath Respiratory: Reports dyspnea, Reports home oxygen, Reports wheezing, Denies cough Gastrointestinal: Denies abdominal pain, Denies diarrhea, Denies nausea, Denies vomiting Genitourinary: Denies dysuria, Denies hematuria Musculoskeletal: Denies myalgias Integumentary: Denies pruritus, Denies rash Neurological: Denies numbness, Denies weakness Psychiatric: Denies anxiety, Denies depression Endocrine: Denies fatigue, Denies weight change Past Medical History Past Medical History: Atrial Fibrillation, Asthma, Heart Failure, COPD, Dementia, Diabetes Mellitus, Hyperlipidemia, Hypertension, Renal Disease, Sleep Apnea/CPAP/BIPAP Additional Past Medical History / Comment(s): Morbid obesity, obstructive sleep apnea maintained on CPAP , uti, anemia, kidney cyst History of Any Multi-Drug Resistant Organisms: MRSA Date of last positivie culture/infection: 12/15/16 MDRO Source:: abdomen Past Surgical History: Breast Surgery, Hernia Repair Additional Past Surgical History / Comment(s): cataracts, panniculectomy and I&D of abdominal mass Past Anesthesia/Blood Transfusion Reactions: No Reported Reaction Past Psychological History: Anxiety Additional Psychological History / Comment(s): pt currently resides at [facility], up with walker/wheelchair Smoking Status: Unknown if ever smoked Past Alcohol Use History: None Reported Past Drug Use History: None Reported - Past Family History Mother Family Medical History: CVA/TIA Father Additional Family Medical History / Comment(s): WAS INJURED IN [facility], also had hx tb but from complications of his injuries Brother(s) Additional Family Medical History / Comment(s): at age 2 years 10months tb Medications and Allergies Home Medications Medication Instructions Recorded Confirmed Type Magnesium Hydroxide [Milk of 2,400 mg PO DAILY PRN 10/19/16 05/10/19 History Magnesia] Diltiazem Cd [Cardizem CD] 120 mg PO HS 10/22/16 05/10/19 History Cinacalcet [Sensipar] 30 mg PO DAILY 09/18/17 05/10/19 History Rivaroxaban [Xarelto] 15 mg PO HS 09/18/17 05/10/19 History Sennosides-Docusate Sodium 1 tab PO BID 09/18/17 05/10/19 History [Senokot-S] HYDROcodone/APAP 5-325MG [[place] 2 tab PO BID 03/23/18 05/10/19 History 5-325] Famotidine [Pepcid] 20 mg PO DAILY@0800 05/10/19 05/10/19 History LORazepam [Ativan] 0.5 mg PO BID 05/10/19 05/10/19 History Mag Hydrox/Aluminum Hyd/Simeth 10 ml PO Q4H PRN 05/10/19 05/10/19 History [Mylanta Maximum Strength Liq] Polyethylene Glycol 3350 [Miralax] 17 gm PO HS 05/10/19 05/10/19 History Sertraline [Zoloft] 150 mg PO DAILY 05/10/19 05/10/19 History Allergies Allergy/AdvReac Type Severity Reaction Status Date / Time adhesive Allergy Rash/Hives Verified 05/10/19 20:45 codeine Allergy Rash/Hives Verified 05/10/19 20:45 Physical Exam Vitals: Vital Signs Temp Pulse Pulse Resp BP BP Pulse Ox 05/11/19 09:24 89 05/11/19 09:14 98 05/11/19 09:11 80 05/11/19 04:00 66 12 120/55 100 05/11/19 00:00 77 20 138/68 100 05/10/19 22:00 95 20 129/64 100 05/10/19 21:30 96 20 101/76 99 05/10/19 21:02 156 H 21 05/10/19 21:00 98 20 120/74 99 05/10/19 20:45 149 H 20 109/86 99 05/10/19 20:39 144 H 23 05/10/19 20:30 152 H 18 102/81 98 05/10/19 20:01 98 F 143 H 21 117/97 100 Intake and Output 05/10/19 05/11/19 05/11/19 22:59 06:59 14:59 Intake Total 240 7.917 0 Balance 240 7.917 0 Intake: Intake, IV Titration 7.917 Amount Diltiazem 125 mg In 7.917 Sodium Chloride 0.9% 100 ml @ 5 MG/HR 5 mls/hr IV .Q24H [facility] Rx#:[id number] Oral 240 0 Other: Weight 63.503 kg 73.5 kg GENERAL EXAM: Alert, very pleasant, 68-year-old white female, currently on CPAP support with a pressure of 15 cm of water, awake and alert, oriented to self, place, month but not the year. Breathing is comfortable, she was switched to 2 L per nasal cannula and is tolerating it well so far. Comfortable in no apparent distress. Patient has facial hair HEAD: Normocephalic/atraumatic. EYES: Normal reaction of pupils, equal size. Conjunctiva pink, sclera white. NOSE: Clear with pink turbinates. THROAT: No erythema or exudates. NECK: No masses, no JVD, no thyroid enlargement, no adenopathy. CHEST: No chest wall deformity. Symmetrical expansion. LUNGS: Equal air entry with bibasilar crackles, mild scattered expiratory w heezes, but no rhonchi or dullness. CVS: Regular rate and rhythm, normal S1 and S2, no gallops, no murmurs, no rubs ABDOMEN: Soft, nontender. No hepatosplenomegaly, normal bowel sounds, no guarding or rigidity. EXTREMITIES: No clubbing, no edema, no cyanosis, 2+ pulses and upper and lower extremities. MUSCULOSKELETAL: Muscle strength and tone normal. SPINE: No scoliosis or deformity SKIN: No rashes CENTRAL NERVOUS SYSTEM: Alert and oriented -3. No focal deficits, tone is normal in all 4 extremities. PSYCHIATRIC: Alert and oriented -3. Appropriate affect. Intact judgment and insight. Results - Laboratory Findings CBC and BMP: 05/10/19 20:19 05/10/19 20:19 PT/INR, D-dimer PT 11.6 sec (9.0-12.0) 05/10/19 20:19 INR 1.1 (<1.2) 05/10/19 20:19 Abnormal lab findings: Abnormal Labs 05/10/19 05/10/19 05/10/19 20:19 20:19 20:19 RBC 3.65 L Hgb 10.2 L Hct 31.7 L APTT 41.5 H BUN 30 H Creatinine 1.20 H Glucose 207 H POC Glucose (mg/dL) Calcium 7.7 L Total Bilirubin 0.1 L Cholesterol LDL Cholesterol, Calc HDL Cholesterol 05/11/19 05/11/19 02:22 06:17 RBC Hgb Hct APTT BUN Creatinine Glucose POC Glucose (mg/dL) 180 H Calcium Total Bilirubin Cholesterol 219 H LDL Cholesterol, Calc 161 H HDL Cholesterol 37 L - Diagnostic Findings Chest x-ray: report reviewed, image reviewed Additional studies: EKG reviewed Assessment and Plan Plan: Assessment: #1. Acute dyspnea related to A. fib with RVR, and mild exacerbation of chronic bronchial asthma, unspecified. Chest x-ray not showing any acute process, patient presented with palpitations, A. fib RVR with a rate of 151, and wheezing. #2. Recent upper respiratory infection #3. Chronic bronchial asthma, unspecified #4. Chronic hypoxic respiratory failure likely related to chronic CHF, and patient relates that she wears 2-3 L of oxygen on a regular basis #5. Obstructive sleep apnea on CPAP therapy with a pressure of 15 cm of water #6. Paroxysmal atrial fibrillation on Xarelto #7. Kidney disease stage III #8. Chronic congestive heart failure with preserved left ventricular systolic function #9. Essential hypertension #10. Type 2 diabetes mellitus without complications #11. Hyperlipidemia #12. Generalized anxiety disorder #13. Major depressive disorder #14. GERD/reflux #15. Hypercalcemia maintained on Sensipar, nightly serum calcium is 7.7 #16. History of MRSA infection in the abdominal wound following debridement of the left abdominal wall seroma #17. Chronic syndrome #8. Generalized medical debility and gait dysfunction Plan: Continue CPAP use at bedtime and as needed at 15 cm of water, patient currently tolerating nasal cannula trials, no worsening dyspnea, mild wheezing but no major congestion, she is back in sinus rhythm with a controlled rate, remains on Cardizem drip for rate control, cardiology is following, echocardiogram is pending, 2 sets of cardiac troponins were negative, continue breathing treatments, obtain influenza screen, we'll continue to follow and make further recommendations I performed a history & physical examination of the patient and discussed their management with my nurse practitioner, Marisa Redding. I reviewed the nurse practitioner's note and agree with the documented findings and plan of care. Lung sounds are positive for mild scattered wheezes and minimal bibasilar crackles . The findings and the impression was discussed with the patient. I attest to the documentation by the nurse practitioner. Time with Patient: Greater than 30
[2019-05-11] MEDS: SODIUM CHLORIDE 0.9% 1,000 ML IV SCH ×2 (10:22→22:04)
[2019-05-11] MEDS: CINACALCET 30 MG TAB PO SCH (10:24)
[2019-05-11] MEDS: SERTRALINE 100 MG TAB PO SCH (10:24)
[2019-05-11] MEDS: FAMOTIDINE 20 MG TAB PO SCH (10:24)
[2019-05-11] MEDS: LORazepam 0.5 MG TAB PO SCH ×2 (10:25→22:03)
[2019-05-11] MEDS: HYDROcodone/APAP 5-325MG 1 EACH TAB PO SCH ×2 (10:25→22:01)
[2019-05-11] MEDS: SENNOSIDES-DOCUSATE SODIUM 1 EACH TAB PO SCH ×2 (10:25→22:03)
[2019-05-11] MEDS: DILTIAZEM CD 240 MG CAP.ER.24H PO SCH (10:27)
--- NOTE | 2019-05-11 11:01 | ECHOF ---
Referral Reason:afib MEASUREMENTS -------- HEIGHT: 152.4 cm WEIGHT: 73.5 kg BP: RVIDd: 3.5 cm (< 3.3) IVSd: 1.5 cm (0.6 - 1.1) LVIDd: 4.3 cm (3.9 - 5.3) LVPWd: 1.6 cm (0.6 - 1.1) IVSs: 1.7 cm LVIDs: 3.1 cm LVPWs: 1.7 cm LA Diam: 4.5 cm (2.7 - 3.8) LAESV Index (A-L): 61.32 ml/m Ao Diam: 2.8 cm (2.0 - 3.7) AV Cusp: 1.1 cm (1.5 - 2.6) MV EXCURSION: 12.495 mm (> 18.000) MV EF SLOPE: 36 mm/s (70 - 150) EPSS: 0.9 cm MV E Gustavo: 0.48 m/s MV DecT: 305 ms MV A Gustavo: 0.67 m/s MV E/A Ratio: 0.72 AV maxP.28 mmHg AV meanP.11 mmHg AR PHT: 402 ms RAP: 5.00 mmHg RVSP: 36.85 mmHg FINDINGS -------- Atrial fibrillation. This was a technically good study. The left ventricular size is normal. There is moderate concentric left ventricular hypertrophy. O verall left ventricular systolic function is low-normal with, an EF between 50 - 55 %. The right ventricle is normal in size. The left atrium is markedly dilated. LA is severely dilated >40 ml/m2 The right atrial size is normal. There is mild aortic regurgitation. There is mild aortic stenosis present. Peak/mean gradient acr oss the Aortic Valve is 25.28mmHg / 13.11mmHg. Mild mitral annular calcification present. Mild mitral regurgitation is present. Mild tricuspid regurgitation present. Right ventricular systolic pressure is normal at < 35 mmHg. There is no evidence of pulmonary hypertension. There is no pulmonic regurgitation present. The aortic root size is normal. There is no pericardial effusion. CONCLUSIONS -------- 1. Atrial fibrillation. 2. This was a technically good study. 3. The left ventricular size is normal. 4. There is moderate concentric left ventricular hypertrophy. 5. Overall left ventricular systolic function is low-normal with, an EF between 50 - 55 %. 6. The right ventricle is normal in size. 7. The left atrium is markedly dilated. 8. LA is severely dilated >40 ml/m2 9. The right atrial size is normal. 10. There is mild aortic regurgitation. 11. There is mild aortic stenosis present. 12. Peak/mean gradient across the Aortic Valve is 25.28mmHg / 13.11mmHg. 13. Mild mitral annular calcification present. 14. Mild mitral regurgitation is present. 15. Mild tricuspid regurgitation present. 16. Right ventricular systolic pressure is normal at < 35 mmHg. 17. There is no evidence of pulmonary hypertension. 18. There is no pulmonic regurgitation present. 19. The aortic root size is normal. 20. There is no pericardial effusion. DATA CODER OPERATOR: Olesya Garcia RDCS
[2019-05-11 12:43] LABS: Glucose,Whole Blood 218 mg/dL (75-99)
[2019-05-11 15:40] LABS: Glucose,Whole Blood 231 mg/dL (75-99)
[2019-05-11 16:39] LABS: Glucose,Whole Blood 224 mg/dL (75-99)
--- NOTE | 2019-05-11 18:38 | P.HPIM ---
History of Present Illness H&P Date: 05/11/19 Chief Complaint: Shortness of breath History of presenting complaint: This is a pleasant 68-year-old patient of Dr. Mccoy. Resident of [facility] . Has a legal guardian. Chronic stable medical conditions include CHF EF 50-60%, hypertension, hyperlipidemia, obstructive sleep apnea uses CPAP, chronic kidney disease stage III, anemia of kidney disease. Patient has got cognitive impairment and that the best of historians. Patient presented with shortness of breath some slight cough no fever and chills reported. Also had atrial fibrillation with a rapid ventricular rate. Was put on IV Cardizem drip. Patient has significant cognitive impairment. Doesn't give much insight and and answers questions randomly. Home uses a wheelchair and a walker. Denies any chest pain. Review of systems: GEN.: Tired EYES: None HEENT: None NECK: None RESPIRATORY: As above slight cough CARDIOVASCULAR: As above GASTROINTESTINAL: None GENITOURINARY: None MUSCULOSKELETAL: None LYMPHATICS: None HEMATOLOGICAL: None PSYCHIATRY: As above NEUROLOGICAL: Uses a wheelchair walker Past medical history to include: Atrial fibrillation, anemia of chronic disease, asthma, CHF EF 50-60%, hypertension, hyperlipidemia, obstructive sleep apnea uses CPAP, chronic kidney disease stage III, dementia Social history: No reported history of smoking or alcohol. Has a legal guardian. Resident of [facility] Physical examination: VITAL SIGNS: 98, 143, 21, 11 7/97, 100% on a BiPAP-upon presentation GENERAL: BMI-31.6, sitting up, awake. EYES: Pupils equal. Conjunctiva normal. HEENT: External appearance of nose and ears normal, oral cavity grossly normal. NECK: JVD not raised; masses not palpable. HEART: Heart sounds irregular no edema. LUNGS: Respiratory rate increased; decreased breath sounds, mild wheezing. ABDOMEN: Soft, nontender, liver spleen not palpable, no masses palpable. PSYCH: Answer occasional questions otherwise rather confusedl. NEUROLOGICAL: Cranial nerves grossly intact; no facial asymmetry, power and sensation grossly intact. LYMPHATICS: No lymph nodes palpable in the axilla and neck INVESTIGATIONS, reviewed in the clinical context: White count 4.5 hemoglobin 10.2 platelets 212 potassium 4.2 bun 30 creatinine 1 .2 Labs from June 2018 show bun of 51 creatinine of 2.16 EKG tracing personally reviewed by me-SVT versus atrial fibrillation with a rapid ventricular rate Chest x-ray film personally reviewed by me-cardiomegaly, lung bob clear Assessment: -Paroxysmal atrial fibrillation with rapid ventricular rate, likely contributing to patient's shortness of breath has now reverted to sinus rhythm -Intermittent asthma with acute exacerbation -Chronic medical debility uses a walker/recheck -Normocytic anemia of chronic kidney disease given-chronic congestive heart failure from diastolic dysfunction EF 50-60% -Essential hypertension -Hyperlipidemia -Obstructive sleep apnea uses a CPAP -Chronic kidney disease stage III from nephrosclerosis -Severe 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 Plan: Patient was initially put on IV Cardizem. Home medications resumed. Given a burst of IV steroids and albuterol. Patient is to continue on Xarelto. No other family members present. Consultation is made to cardiology and pulmonary.. Past Medical History Past Medical History: Atrial Fibrillation, Asthma, Heart Failure, COPD, Dementia, Diabetes Mellitus, Hyperlipidemia, Hypertension, Renal Disease, Sleep Apnea/CPAP/BIPAP Additional Past Medical History / Comment(s): Morbid obesity, obstructive sleep apnea maintained on CPAP , uti, anemia, kidney cyst History of Any Multi-Drug Resistant Organisms: MRSA Date of last positivie culture/infection: 12/15/16 MDRO Source:: abdomen Past Surgical History: Breast Surgery, Hernia Repair Additional Past Surgical History / Comment(s): cataracts, panniculectomy and I&D of abdominal mass Past Anesthesia/Blood Transfusion Reactions: No Reported Reaction Past Psychological History: Anxiety Additional Psychological History / Comment(s): pt currently resides at [facility], up with walker/wheelchair Smoking Status: Unknown if ever smoked Past Alcohol Use History: None Reported Past Drug Use History: None Reported - Past Family History Mother Family Medical History: CVA/TIA Father Additional Family Medical History / Comment(s): WAS INJURED [place], also had hx tb but from complications of his injuries Brother(s) Additional Family Medical History / Comment(s): at age 2 years 10months tb Medications and Allergies Home Medications Medication Instructions Recorded Confirmed Type Magnesium Hydroxide [Milk of 2,400 mg PO DAILY PRN 10/19/16 05/10/19 History Magnesia] Diltiazem Cd [Cardizem CD] 120 mg PO HS 10/22/16 05/10/19 History Cinacalcet [Sensipar] 30 mg PO DAILY 09/18/17 05/10/19 History Rivaroxaban [Xarelto] 15 mg PO HS 09/18/17 05/10/19 History Sennosides-Docusate Sodium 1 tab PO BID 09/18/17 05/10/19 History [Senokot-S] HYDROcodone/APAP 5-325MG [[place] 2 tab PO BID 03/23/18 05/10/19 History 5-325] Famotidine [Pepcid] 20 mg PO DAILY@0800 05/10/19 05/10/19 History LORazepam [Ativan] 0.5 mg PO BID 05/10/19 05/10/19 History Mag Hydrox/Aluminum Hyd/Simeth 10 ml PO Q4H PRN 05/10/19 05/10/19 History [Mylanta Maximum Strength Liq] Polyethylene Glycol 3350 [Miralax] 17 gm PO HS 05/10/19 05/10/19 History Sertraline [Zoloft] 150 mg PO DAILY 05/10/19 05/10/19 History Allergies Allergy/AdvReac Type Severity Reaction Status Date / Time adhesive Allergy Rash/Hives Verified 05/10/19 20:45 codeine Allergy Rash/Hives Verified 05/10/19 20:45 Physical Exam Vitals: Vital Signs Temp Pulse Pulse Resp BP BP Pulse Ox 05/11/19 09:24 89 05/11/19 09:14 98 05/11/19 09:11 80 05/11/19 04:00 66 12 120/55 100 05/11/19 00:00 77 20 138/68 100 05/10/19 22:00 95 20 129/64 100 05/10/19 21:30 96 20 101/76 99 05/10/19 21:02 156 H 21 05/10/19 21:00 98 20 120/74 99 05/10/19 20:45 149 H 20 109/86 99 05/10/19 20:39 144 H 23 05/10/19 20:30 152 H 18 102/81 98 05/10/19 20:01 98 F 143 H 21 117/97 100 Intake and Output 05/10/19 05/11/19 05/11/19 22:59 06:59 14:59 Intake Total 240 7.917 0 Balance 240 7.917 0 Intake: Intake, IV Titration 7.917 Amount Diltiazem 125 mg In 7.917 Sodium Chloride 0.9% 100 ml @ 5 MG/HR 5 mls/hr IV .Q24H [facility] Rx#:[id number] Oral 240 0 Other: Weight 63.503 kg 73.5 kg Results CBC & Chem 7: 05/10/19 20:19 05/10/19 20:19 Labs: Abnormal Lab Results - Last 24 Hours (Table) 05/10/19 05/10/19 05/10/19 Range/Units 20:19 20:19 20:19 RBC 3.65 L (3.80-5.40) m/uL Hgb 10.2 L (11.4-16.0) gm/dL Hct 31.7 L (34.0-46.0) % APTT 41.5 H (22.0-30.0) sec BUN 30 H (7-17) mg/dL Creatinine 1.20 H (0.52-1.04) mg/dL Glucose 207 H (74-99) mg/dL POC Glucose (mg/dL) (75-99) mg/dL Calcium 7.7 L (8.4-10.2) mg/dL Total Bilirubin 0.1 L (0.2-1.3) mg/dL Cholesterol (<200) mg/dL LDL Cholesterol, Calc (0-99) mg/dL HDL Cholesterol (40-60) mg/dL 05/11/19 05/11/19 Range/Units 02:22 06:17 RBC (3.80-5.40) m/uL Hgb (11.4-16.0) gm/dL Hct (34.0-46.0) % APTT (22.0-30.0) sec BUN (7-17) mg/dL Creatinine (0.52-1.04) mg/dL Glucose (74-99) mg/dL POC Glucose (mg/dL) 180 H (75-99) mg/dL Calcium (8.4-10.2) mg/dL Total Bilirubin (0.2-1.3) mg/dL Cholesterol 219 H (<200) mg/dL LDL Cholesterol, Calc 161 H (0-99) mg/dL HDL Cholesterol 37 L (40-60) mg/dL
[2019-05-11 20:48] LABS: Glucose,Whole Blood 183 mg/dL (75-99)
[2019-05-11] MEDS: RIVAROXABAN 15 MG TAB PO SCH (22:01)
[2019-05-11] MEDS: ATORVASTATIN 40 MG TAB PO SCH (22:02)
[2019-05-11] MEDS: POLYETHYLENE GLYCOL 3350 17 GM POWD.PACK PO SCH (22:03)
[2019-05-12] MEDS: methylPREDNISolone SOD SUCCI 40 MG/ML 1 ML VIAL IV SCH ×4 (02:00→23:50)
[2019-05-12] MEDS: SODIUM CHLORIDE 0.9% 1,000 ML IV SCH ×2 (06:00→13:04)
[2019-05-12 06:25] LABS: Glucose,Whole Blood 177 mg/dL (75-99)
[2019-05-12] MEDS: INSULIN ASPART (NovoLOG) 100 UNIT/ML VIAL SQ SCH ×4 (06:29→22:04)
[2019-05-12] MEDS: ALBUTEROL NEBULIZED 2.5 MG/3 ML INHALATION SCH ×4 (08:20→19:19)
[2019-05-12] MEDS: LORazepam 0.5 MG TAB PO SCH ×2 (09:16→21:43)
[2019-05-12] MEDS: FAMOTIDINE 20 MG TAB PO SCH (09:16)
[2019-05-12] MEDS: SENNOSIDES-DOCUSATE SODIUM 1 EACH TAB PO SCH ×2 (09:16→21:44)
[2019-05-12] MEDS: SERTRALINE 100 MG TAB PO SCH (09:16)
[2019-05-12] MEDS: DILTIAZEM CD 240 MG CAP.ER.24H PO SCH (09:16)
[2019-05-12] MEDS: HYDROcodone/APAP 5-325MG 1 EACH TAB PO SCH ×2 (09:16→21:43)
[2019-05-12] MEDS: CINACALCET 30 MG TAB PO SCH (09:17)
--- NOTE | 2019-05-12 09:33 | P.PN ---
Subjective Progress Note Date: 05/12/19 68-year-old white female patient of Dr. Mccoy, [facility], with past medical history of hypertension, chronic kidney disease stage III, chronic anemia, obstructive sleep apnea on CPAP, paroxysmal atrial fibrillation, type 2 diabetes mellitus without complications, it br onchial asthma, unspecified, GERD/reflux, chronic congestive heart failure, hyperlipidemia, major depressive disorder, vascular dementia and questionable history of tuberculosis in childhood, who was brought into the emergency department on 2019 evaluation of tachycardia, difficulty breathing with wheezing complaints of palpitations. Patient had a recent upper respiratory infection. Her symptoms were also associated with chest discomfort, pain with inspiration, fever and cough. EKG showed atrial fibrillation with rapid ventricular response with a rate of 151, patient was started on Cardizem drip for rate control, chest x-ray was completed showing no active cardiopulmonary disease. Right hip and pelvis x-ray was completed showing advanced arthritic changes in the right hip joint with superior migration of the femoral head which progressed since prior computed tomography scan, and possibility of septic arthritis was not excluded, but no acute fractures were seen. Patient has been afebrile while in the hospital, no evidence of leukocytosis, blood cell count is 4.5, immobile globin is 10.2, correlation profile was within normal limits, electrolytes were unremarkable, B1 is 30 creatinine is 1.2, troponins were 0.012, and 0.014, proBNP was 3430, lactic acid was normal at 1.6. This morning she remains on Cardizem drip at 5 mg per hour, she is in sinus rhythm with a controlled rate, her breathing is comfortable, she was on CPAP overnight with a pressure of 15 cm of water, she has been placed back on nasal cannula, and she denies difficulty breathing. Patient is on Xarelto. for history of paroxysmal atrial fibrillation Patient is a lifetime nonsmoker. She denies ever seeing a product distribution specialist, and she is not on any maintenance inhalers for breathing treatments. On 05/12/2019 patient seen in follow-up on selective care unit, she is awake and alert, she is on 2 L of oxygen and the pulse ox of 98%, afebrile, hemodynamically stable, patient sounds more congested and wheezy and today's exam, IV Solu-Medrol has been added and patient is currently receiving 40 mg every 8 hours. She remains in sinus rhythm, with a controlled rate, no complaints of chest pain, at times patient is bringing up some brown colored sputum. Objective - Vital Signs Vital signs: Vital Signs Temp 98.2 F 05/11/19 20:00 Pulse 80 05/12/19 08:32 Resp 20 05/12/19 04:00 BP 127/60 05/12/19 04:00 Pulse Ox 98 05/12/19 08:22 Intake & Output 05/11/19 05/12/19 05/12/19 18:59 06:59 18:59 Intake Total 1210 540 240 Balance 1210 540 240 Weight 73.5 kg Intake: Intake, IV Titration 700 Amount Sodium Chloride 0.9% 1, 700 000 ml @ 100 mls/hr IV . Q10H [facility] Rx#:[id number] Oral 510 540 240 Other: # Voids 3 - Exam GENERAL EXAM: Alert, very pleasant, 68-year-old white female, in no acute distress Breathing is comfortable, she was switched to 2 L per nasal cannula and is tolerating it well so far. Comfortable in no apparent distress. Patient has facial hair HEAD: Normocephalic/atraumatic. EYES: Normal reaction of pupils, equal size. Conjunctiva pink, sclera white. NOSE: Clear with pink turbinates. THROAT: No erythema or exudates. NECK: No masses, no JVD, no thyroid enlargement, no adenopathy. CHEST: No chest wall deformity. Symmetrical expansion. LUNGS: Equal air entry with scattered wheezing bilaterally, congested cough with occasional production of thick brownish yellow sputum CVS: Regular rate and rhythm, normal S1 and S2, no gallops, no murmurs, no rubs ABDOMEN: Soft, nontender. No hepatosplenomegaly, normal bowel sounds, no guarding or rigidity. EXTREMITIES: No clubbing, no edema, no cyanosis, 2+ pulses and upper and lower extremities. MUSCULOSKELETAL: Muscle strength and tone normal. SPINE: No scoliosis or deformity SKIN: No rashes CENTRAL NERVOUS SYSTEM: Alert and oriented -3. No focal deficits, tone is normal in all 4 extremities. PSYCHIATRIC: Alert and oriented -3. Appropriate affect. Intact judgment and insight. - Labs CBC & Chem 7: 05/10/19 20:19 05/10/19 20:19 Labs: Abnormal Lab Results - Last 24 Hours (Table) 05/11/19 05/11/19 05/11/19 Range/Units 12:35 15:36 16:36 POC Glucose (mg/dL) 218 H 231 H 224 H (75-99) mg/dL 05/11/19 05/12/19 Range/Units 20:47 06:23 POC Glucose (mg/dL) 183 H 177 H (75-99) mg/dL Microbiology - Last 24 Hours (Table) 05/10/19 20:19 Blood Culture - Preliminary Blood No Growth after 24 hours Assessment and Plan Plan: Assessment: #1. Acute dyspnea related to A. fib with RVR, and mild exacerbation of chronic bronchial asthma, unspecified. Chest x-ray not showing any acute process, patient presented with palpitations, A. fib RVR with a rate of 151, and wheezing. #2. Recent upper respiratory infection #3. Chronic bronchial asthma, unspecified #4. Chronic hypoxic respiratory failure likely related to chronic CHF, and patient relates that she wears 2-3 L of oxygen on a regular basis #5. Obstructive sleep apnea on CPAP therapy with a pressure of 15 cm of water #6. Paroxysmal atrial fibrillation on Xarelto, patient has converted to sinus rhythm with a controlled rate #7. Kidney disease stage III #8. Chronic congestive heart failure with preserved left ventricular systolic function #9. Essential hypertension #10. Type 2 diabetes mellitus without complications #11. Hyperlipidemia #12. Generalized anxiety disorder #13. Major depressive disorder #14. GERD/reflux #15. Hypercalcemia maintained on Sensipar, nightly serum calcium is 7.7 #16. History of MRSA infection in the abdominal wound following debridement of the left abdominal wall seroma #17. Chronic syndrome #8. Generalized medical debility and gait dysfunction Plan: Influenza screen was negative, patient is afebrile, but sounds more wheezing congested on today's exam, we will add oral Zithromax and continue IV Solu- Medrol and breathing treatments, she remains in sinus rhythm, she is on oral anticoagulation, no complaints of chest pain, altered mentation, vital signs are stable, we'll continue to follow. I performed a history & physical examination of the patient and discussed their management with my nurse practitioner, Marisa Redding. I reviewed the nurse practitioner's note and agree with the documented findings and plan of care. Lung sounds are positive for mild scattered wheezes and minimal bibasilar crackles . The findings and the impression was discussed with the patient. I attest to the documentation by the nurse practitioner. Time with Patient: Less than 30
--- NOTE | 2019-05-12 11:11 | P.CONS ---
History of Present Illness - Reason for Consult Consult date: 05/12/19 Wound care - History of Present Illness This is a 68-year-old pleasant female who is being seen by the wound care center for a ulceration to the abdomen. Patient has been a patient to the wound care center in the past it appears to be related to removal of a skin cancer at that time. Patient states that the ulceration has been there for a while and they apply a dry dressing to the site. Upon further inspection it appears that the ulceration is related to previous hernia surgery and mesh is coming from the ulceration site. All skin is intact no open areas were noted. However the ulceration does have significant eschar, mesh, and dried epithelial. No drainage is noted from the site. Patient is a poor historian unable to state when the ulceration began and when surgery was. Asians past medical hist ory is significant for congestive heart failure, hypertension, hyperlipidemia, obstructive sleep apnea, chronic kidney disease stage III, anemia of chronic disease, A. fib with RVR and cognitive impairment. Patient is a resident of [facility]. Review of Systems Review Of Systems: Constitutional: No fever, no chills, no night sweats. No weight change. No weakness, fatigue or lethargy. No daytime sleepiness. Integumentary:reports wounds, no lesions. No rash or pruritus. No unusual bruising. No change in hair or nails. Past Medical History Past Medical History: Atrial Fibrillation, Asthma, Heart Failure, COPD, Dementia, Diabetes Mellitus, Hyperlipidemia, Hypertension, Renal Disease, Sleep Apnea/CPAP/BIPAP Additional Past Medical History / Comment(s): Morbid obesity, obstructive sleep apnea maintained on CPAP , uti, anemia, kidney cyst History of Any Multi-Drug Resistant Organisms: MRSA Year Discovered:: 12/15/16 MDRO Source:: abdomen Past Surgical History: Breast Surgery, Hernia Repair Additional Past Surgical History / Comment(s): cataracts, panniculectomy and I&D of abdominal mass Past Anesthesia/Blood Transfusion Reactions: No Reported Reaction Past Psychological History: Anxiety Additional Psychological History / Comment(s): pt currently resides at [facility], up with walker/wheelchair Smoking Status: Unknown if ever smoked Past Alcohol Use History: None Reported Past Drug Use History: None Reported - Past Family History Mother Family Medical History: CVA/TIA Father Additional Family Medical History / Comment(s): WAS INJURED IN [employer], also had hx tb but from complications of his injuries Brother(s) Additional Family Medical History / Comment(s): at age 2 years 10months tb Medications and Allergies Home Medications Medication Instructions Recorded Confirmed Type Magnesium Hydroxide [Milk of 2,400 mg PO DAILY PRN 10/19/16 05/10/19 History Magnesia] Diltiazem Cd [Cardizem CD] 120 mg PO HS 10/22/16 05/10/19 History Cinacalcet [Sensipar] 30 mg PO DAILY 09/18/17 05/10/19 History Rivaroxaban [Xarelto] 15 mg PO HS 09/18/17 05/10/19 History Sennosides-Docusate Sodium 1 tab PO BID 09/18/17 05/10/19 History [Senokot-S] HYDROcodone/APAP 5-325MG [[place] 2 tab PO BID 03/23/18 05/10/19 History 5-325] Famotidine [Pepcid] 20 mg PO DAILY@0800 05/10/19 05/10/19 History LORazepam [Ativan] 0.5 mg PO BID 05/10/19 05/10/19 History Mag Hydrox/Aluminum Hyd/Simeth 10 ml PO Q4H PRN 05/10/19 05/10/19 History [Mylanta Maximum Strength Liq] Polyethylene Glycol 3350 [Miralax] 17 gm PO HS 05/10/19 05/10/19 History Sertraline [Zoloft] 150 mg PO DAILY 05/10/19 05/10/19 History Allergies Allergy/AdvReac Type Severity Reaction Status Date / Time adhesive Allergy Rash/Hives Verified 05/10/19 20:45 codeine Allergy Rash/Hives Verified 05/10/19 20:45 Physical Exam Vitals: Vital Signs Temp Pulse Pulse Resp BP Pulse Ox 05/12/19 08:32 80 05/12/19 08:22 84 98 05/12/19 08:00 97.4 F L 86 117/57 98 05/12/19 04:00 84 20 127/60 90 L 05/12/19 00:00 82 20 149/64 97 05/11/19 21:03 84 05/11/19 20:53 83 05/11/19 20:00 98.2 F 87 16 125/63 97 05/11/19 16:19 94 05/11/19 16:07 90 98 05/11/19 16:00 97.8 F 81 20 114/62 99 05/11/19 12:00 78 141/65 98 Intake and Output 05/11/19 05/12/19 05/12/19 22:59 06:59 14:59 Intake Total 900 240 Balance 900 240 Intake: Oral 900 240 Other: # Voids 3 Weight 73.5 kg Physical exam: General Appearance: Alert, cooperative, no distress, appears stated age. Skin: See HPI all other Skin color, texture, tugor normal, no rashes or lesions. Neurologic: Alert oriented x3 Results CBC & Chem 7: 05/10/19 20:19 05/10/19 20:19 Labs: Abnormal Lab Results - Last 24 Hours (Table) 05/11/19 05/11/19 05/11/19 Range/Units 12:35 15:36 16:36 POC Glucose (mg/dL) 218 H 231 H 224 H (75-99) mg/dL 05/11/19 05/12/19 Range/Units 20:47 06:23 POC Glucose (mg/dL) 183 H 177 H (75-99) mg/dL Microbiology - Last 24 Hours (Table) 05/10/19 20:19 Blood Culture - Preliminary Blood No Growth after 24 hours Assessment and Plan (1) Nonhealing skin ulcer, limited to breakdown of skin Current Visit: Yes Status: Acute Code(s): L98.491 - NON-PRS CHRONIC ULCER SKIN/ SITES LIMITED TO BRKDWN SKIN SNOMED Code(s): 41115333 Plan: Continue with a dry dressing and Medipore tape at this time. It may utilize honey gel if the ulceration becomes open. Patient would benefit from a debridement and outpatient wound care treatment due to the significant amount of mesh exposed. This was discussed with patient who is reluctant to commit to outpatient treatment. Information left with nursing to schedule an appointment with the wound care center upon discharge. Thank you kindly for the consultation. Any questions please contact the wound care center. DNP note has been reviewed and discussed with Dr. Shankar and the impression and plan of care has been directed as dictated.
[2019-05-12 12:27] LABS: Glucose,Whole Blood 174 mg/dL (75-99)
[2019-05-12] MEDS: AZITHROMYCIN 500 MG TAB PO SCH (13:01)
[2019-05-12] MEDS ORDERED: DEXTROSE 5% IN WATER 100 ML with AMIODARONE 150 MG IV ONE (13:44)
[2019-05-12] MEDS ORDERED: AMIODARONE 360 MG in DEXTROSE 5% IN WATER 200 ML IV ONE ×2 (13:44)
--- NOTE | 2019-05-12 13:53 | P.PN ---
Subjective Progress Note Date: 05/12/19 This is a 68-year-old female most of the history was obtained from the medical record as the patient is quite groggy this morning, and does have underlying dementia. She has a past medical history significant for paroxysmal atrial fibrillation, hyperlipidemia, asthma, COPD, chronic anemia, diabetes, hypertension, sleep apnea, morbid obesity, apparently was brought to the hospital because of the symptoms of shortness of breath. A cardiology consultation was requested because of atrial fibrillation. Her EKG on presentation here showed atrial fibrillation with a rapid ventricular response. Chest x-ray did not reveal any active cardiopulmonary disease. Patient was complaining apparently in the emergency room of some discomfort in her pelvic area, an x-ray of the right hip and pelvis was performed which revealed advanced arthritic changes in the right hip joint with superior migration of the femoral head that is progressed as compared with old CAT scan. Blood pressure on arrival here 117/97 with a heart rate of 140, 100% on BiPAP. Laboratory data was reviewed, white blood cell count 4.5, hemoglobin 10.2, platelet count 212. Sodium 137, potassium 4.2, BUN 30, creatinine 1.2, magnesium 1.8, troponin 0.012, 0.014. BNP level 3430. Cholesterol 219, LDL 161, HDL 37, cholesterol 13. At the time of my examination this morning, patient is quite groggy, does feel that she is short of breath. 05/12/2019 Patient was seen and examined today, appears to be congested. Continues to be in atrial fibrillation, her heart rate for most of the day in the 1 teens, at the time of my examination at been to the 04/05/1929 range. We will add IV amiodarone to her medication regime. 116/50. Objective - Vital Signs Vital signs: Vital Signs Temp 97.4 F L 05/12/19 08:00 Pulse 86 05/12/19 11:59 Resp 20 05/12/19 04:00 BP 117/57 05/12/19 08:00 Pulse Ox 98 05/12/19 08:22 Intake & Output 05/11/19 05/12/19 05/12/19 18:59 06:59 18:59 Intake Total 1210 540 240 Balance 1210 540 240 Weight 73.5 kg Intake: Intake, IV Titration 700 Amount Sodium Chloride 0.9% 1, 700 000 ml @ 100 mls/hr IV . Q10H [facility] Rx#:[id number] Oral 510 540 240 Other: # Voids 3 - Exam PHYSICAL EXAMINATION: HEENT: Head is atraumatic, normocephalic. Pupils equal, round. Neck is supple. There is no elevated jugular venous pressure. HEART EXAMINATION: S1 and S2 irregular irregular, systolic murmur heard CHEST EXAMINATION: Lungs reveal diminished air entry to bilateral bases, scattered wheezing throughout ABDOMEN: Abdomen is morbidly obese, no tenderness noted. Abdominal apron is reaching to the patient's upper thighs. She also has a large incisional hernia unchanged from prior.. EXTREMITIES: 1+ peripheral pulses with trace evidence of peripheral edema and no calf tenderness noted. NEUROLOGIC patient is groggy, confused. - Labs CBC & Chem 7: 05/10/19 20:19 05/10/19 20:19 Labs: Abnormal Lab Results - Last 24 Hours (Table) 05/11/19 05/11/19 05/11/19 Range/Units 15:36 16:36 20:47 POC Glucose (mg/dL) 231 H 224 H 183 H (75-99) mg/dL 05/12/19 05/12/19 Range/Units 06:23 12:02 POC Glucose (mg/dL) 177 H 174 H (75-99) mg/dL Microbiology - Last 24 Hours (Table) 05/10/19 20:19 Blood Culture - Preliminary Blood No Growth after 24 hours Assessment and Plan Plan: Assessment and plan #1 atrial fibrillation with rapid ventricular response #2 morbid obesity #3 asthma #4 COPD #5 diabetes #6 hyperlipidemia #7 hypertension #8 sleep apnea #9 dementia Plan Echocardiogram with Doppler study revealed an ejection of 50-55%. Patient's heart rate is elevated, we will start her on IV amiodarone today continue by mouth Cardizem. DNP note has been reviewed, I agree with a documented findings and plan of care. Patient was seen and examined.
[2019-05-12 14:54] LABS: Calcium 7.4 mg/dL (8.4-10.2); Potassium 4.7 mmol/L (3.5-5.1)
[2019-05-12 16:53] LABS: Glucose,Whole Blood 158 mg/dL (75-99)
--- NOTE | 2019-05-12 18:06 | P.PN ---
Progress Note - Text Progress Note Date: 05/12/19 Chief Complaint: Shortness of breath History of presenting complaint: This is a pleasant 68-year-old patient of Dr. Mccoy. Resident of [facility] [address] . Has a legal guardian. Chronic stable medical conditions include CHF EF 50-60%, hypertension, hyperlipidemia, obstructive sleep apnea uses CPAP, chronic kidney disease stage III, anemia of kidney disease. Patient has got cognitive impairment and that the best of historians. Patient presented with shortness of breath some slight cough no fever and chills reported. Also had atrial fibrillation with a rapid ventricular rate. Was put on IV Cardizem drip. Patient has significant cognitive impairment. Doesn't give much insight and and answers questions randomly. Home uses a wheelchair and a walker. Denies any chest pain. Admitted with atrial fibrillation with rapid ventricular rate, asthma exacerbation Today-still congested in the chest. Not much phlegm. Not much appetite at about 25% of breakfast and about 50% of lunch. Went back into A. fib with rapid ventricular rate this afternoon. Started on IV amiodarone Review of systems: Was done for constitutional, cardiovascular, GI, pulmonary. relevant finding as above Active Medications Hydrocodone Bitart/Acetaminophen ([place] 5-325) 2 each PO BID [facility] Last Admin: 05/12/19 09:16 Dose: 2 each Documented by: Al Hydroxide/Mg Hydroxide (Maalox) 10 ml PO Q4H PRN PRN Reason: Indigestion Albuterol Sulfate (Ventolin Nebulized) 2.5 mg INHALATION RT-QID [facility] Last Admin: 05/12/19 16:45 Dose: 2.5 mg Documented by: Atorvastatin Calcium (Lipitor) 40 mg PO HS [facility] Last Admin: 05/11/19 22:02 Dose: 40 mg Documented by: Azithromycin (Zithromax) 500 mg PO DAILY [facility] Last Admin: 05/12/19 13:01 Dose: 500 mg Documented by: Benzocaine/Menthol (Cepacol Lozenge) 1 each MUCOUS MEM Q4HR PRN PRN Reason: Cough Budesonide (Pulmicort) 1 mg INHALATION RT-BID [facility] Cinacalcet (Sensipar) 30 mg PO DAILY [facility] Last Admin: 05/12/19 09:17 Dose: 30 mg Documented by: Diltiazem HCl (Cardizem Cd) 240 mg PO DAILY [facility] Last Admin: 05/12/19 09:16 Dose: 240 mg Documented by: Famotidine (Pepcid) 20 mg PO DAILY@0800 [facility] Last Admin: 05/12/19 09:16 Dose: 20 mg Documented by: Formoterol Fumarate (Perforomist) 20 mcg INHALATION RT-BID [facility] Sodium Chloride (Saline 0.9%) 1,000 mls @ 10 mls/hr IV .Q24H [facility] Last Admin: 05/12/19 13:04 Dose: 10 mls/hr Documented by: Amiodarone HCl 360 mg/ (Dextrose/Water) 200 mls @ 33.333 mls/hr IV .Q6H [facility]; Protocol Stop: 05/12/19 19:43 Amiodarone HCl 300 mg/ (Dextrose/Water) 250 mls @ 25 mls/hr IV .Q10H [facility]; Protocol Stop: 05/13/19 13:43 Insulin Aspart (Novolog) 0 unit SQ ACHS [facility]; Protocol Last Admin: 05/12/19 13:01 Dose: 2 unit Documented by: Lorazepam (Ativan) 0.5 mg PO BID [facility] Last Admin: 05/12/19 09:16 Dose: 0.5 mg Documented by: Magnesium Hydroxide (Milk Of Magnesia) 2,400 mg PO DAILY PRN PRN Reason: Constipation Methylprednisolone Sodium Succinate (Solu-Medrol) 40 mg IV Q6HR [facility] Morphine Sulfate (Morphine Sulfate (Inj)) 4 mg IV Q4HR PRN PRN Reason: Chest Pain Nitroglycerin (Nitrostat) 0.4 mg SUBLINGUAL Q5M PRN PRN Reason: Chest Pain Polyethylene Glycol (Miralax) 17 gm PO [facility] Last Admin: 05/11/19 22:03 Dose: 17 gm Documented by: Rivaroxaban (Xarelto) 15 mg PO [facility] Last Admin: 05/11/19 22:01 Dose: 15 mg Documented by: Senna/Docusate Sodium (Senokot-S) 1 each PO BID [facility] Last Admin: 05/12/19 09:16 Dose: 1 each Documented by: Sertraline HCl (Zoloft) 150 mg PO DAILY [facility] Last Admin: 05/12/19 09:16 Dose: 150 mg Documented by: Sodium Chloride (Saline Flush) 10 ml IV BID [facility] Last Admin: 05/12/19 09:17 Dose: 10 ml Documented by: Physical examination: VITAL SIGNS: 97.4, 86, 20, 11 7/57, 98% on room air GENERAL: BMI-31.6, laying in bed, but more comfortable EYES: Pupils equal. Conjunctiva normal. HEENT: External appearance of nose and ears normal, oral cavity grossly normal. NECK: JVD not raised; masses not palpable. HEART: Heart sounds irregular no edema. LUNGS: Respiratory rate increased; decreased breath sounds, some wheezing ABDOMEN: Soft, nontender, liver spleen not palpable, no masses palpable. PSYCH: Answer occasional questions otherwise rather confusedl. INVESTIGATIONS, reviewed in the clinical context: White count 4.7 bun 41 crit 1.21 Previous testing White count 4.5 hemoglobin 10.2 platelets 212 potassium 4.2 bun 30 creatinine 1.2 Labs from June 2018 show bun of 51 creatinine of 2.16 EKG tracing personally reviewed by me-SVT versus atrial fibrillation with a rapid ventricular rate Chest x-ray film personally reviewed by me-cardiomegaly, lung bob clear Assessment: -Paroxysmal atrial fibrillation with rapid ventricular rate, likely contributing to patient's shortness of breath and what to reverted to sinus rhythm -back to increased heart rate POA -Intermittent asthma with acute exacerbation, slow to respond, POA -Chronic medical debility uses a walker/recheck -Normocytic anemia of chronic kidney disease given -chronic congestive heart failure from diastolic dysfunction EF 50-60% -Essential hypertension -Hyperlipidemia -Obstructive sleep apnea uses a CPAP -Chronic kidney disease stage III from nephrosclerosis -Severe 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 Plan: At this point continue current medication treatment plan. Patient is on IV amiodarone, IV Solu-Medrol, bronchodilators.
[2019-05-12] MEDS: BUDESONIDE 1 MG/2 ML NEBU INHALATION SCH (19:19)
[2019-05-12] MEDS: FORMOTEROL FUMARATE 20 MCG/2 ML NEBU INHALATION SCH (19:39)
[2019-05-12] MEDS ORDERED: AMIODARONE 300 MG in DEXTROSE 5% IN WATER 250 ML IV SCH ×2 (19:44)
[2019-05-12 21:03] LABS: Glucose,Whole Blood 229 mg/dL (75-99)
[2019-05-12] MEDS: RIVAROXABAN 15 MG TAB PO SCH (21:43)
[2019-05-12] MEDS: ATORVASTATIN 40 MG TAB PO SCH (21:43)
[2019-05-12] MEDS: POLYETHYLENE GLYCOL 3350 17 GM POWD.PACK PO SCH (21:44)
[2019-05-12] MEDS: BENZOCAINE/MENTHOL LOZENG 1 EACH LOZENGE MUCOUS MEM PRN (23:56)
[2019-05-13 07:24] LABS: Calcium 7.6 mg/dL (8.4-10.2); Potassium 4.8 mmol/L (3.5-5.1)
[2019-05-13] MEDS: INSULIN ASPART (NovoLOG) 100 UNIT/ML VIAL SQ SCH ×4 (07:46→21:33)
[2019-05-13] MEDS: methylPREDNISolone SOD SUCCI 40 MG/ML 1 ML VIAL IV SCH ×5 (07:47→23:04)
[2019-05-13 08:00] LABS: Glucose,Whole Blood 192 mg/dL (75-99)
[2019-05-13 08:29] LABS: Basophils % (A) 0 %; Eosinophils % (A) 0 %; HCT 31.8 % (34.0-46.0); HGB 9.9 gm/dL (11.4-16.0); Hypochromasia Slight; Lymphocytes # (A) 0.7 k/uL (1.0-4.8); Lymphocytes % (A) 5 %; MCH 27.9 pg (25.0-35.0); MCHC 31.2 g/dL (31.0-37.0); MCV 89.3 fL (80.0-100.0); Monocytes # (A) 0.3 k/uL (0-1.0); Monocytes % (A) 2 %; Neutrophils # (A) 13.4 k/uL (1.3-7.7); Neutrophils % (A) 92 %; Platelet Count 227 k/uL (150-450); RBC 3.56 m/uL (3.80-5.40); RDW 14.4 % (11.5-15.5); WBC 14.6 k/uL (3.8-10.6)
[2019-05-13] MEDS: BUDESONIDE 1 MG/2 ML NEBU INHALATION SCH ×2 (08:42→20:30)
[2019-05-13] MEDS: FORMOTEROL FUMARATE 20 MCG/2 ML NEBU INHALATION SCH ×2 (08:42→20:30)
[2019-05-13] MEDS: ALBUTEROL NEBULIZED 2.5 MG/3 ML INHALATION SCH ×4 (08:42→20:30)
[2019-05-13] MEDS: DILTIAZEM CD 240 MG CAP.ER.24H PO SCH (09:04)
[2019-05-13] MEDS: FAMOTIDINE 20 MG TAB PO SCH (09:04)
--- NOTE | 2019-05-13 09:10 | P.PN ---
Subjective Progress Note Date: 05/13/19 68-year-old white female patient of Dr. Mccoy, [facility], with past medical history of hypertension, chronic kidney disease stage III, chronic anemia, obstructive sleep apnea on CPAP, paroxysmal atrial fibrillation, type 2 diabetes mellitus without complications, it br onchial asthma, unspecified, GERD/reflux, chronic congestive heart failure, hyperlipidemia, major depressive disorder, vascular dementia and questionable history of tuberculosis in childhood, who was brought into the emergency department on 2019 evaluation of tachycardia, difficulty breathing with wheezing complaints of palpitations. Patient had a recent upper respiratory infection. Her symptoms were also associated with chest discomfort, pain with inspiration, fever and cough. EKG showed atrial fibrillation with rapid ventricular response with a rate of 151, patient was started on Cardizem drip for rate control, chest x-ray was completed showing no active cardiopulmonary disease. Right hip and pelvis x-ray was completed showing advanced arthritic changes in the right hip joint with superior migration of the femoral head which progressed since prior computed tomography scan, and possibility of septic arthritis was not excluded, but no acute fractures were seen. Patient has been afebrile while in the hospital, no evidence of leukocytosis, blood cell count is 4.5, immobile globin is 10.2, correlation profile was within normal limits, electrolytes were unremarkable, B1 is 30 creatinine is 1.2, troponins were 0.012, and 0.014, proBNP was 3430, lactic acid was normal at 1.6. This morning she remains on Cardizem drip at 5 mg per hour, she is in sinus rhythm with a controlled rate, her breathing is comfortable, she was on CPAP overnight with a pressure of 15 cm of water, she has been placed back on nasal cannula, and she denies difficulty breathing. Patient is on Xarelto. for history of paroxysmal atrial fibrillation Patient is a lifetime nonsmoker. She denies ever seeing a evaluation specialist, and she is not on any maintenance inhalers for breathing treatments. On 05/12/2019 patient seen in follow-up on selective care unit, she is awake and alert, she is on 2 L of oxygen and the pulse ox of 98%, afebrile, hemodynamically stable, patient sounds more congested and wheezy and today's exam, IV Solu-Medrol has been added and patient is currently receiving 40 mg every 8 hours. She remains in sinus rhythm, with a controlled rate, no complaints of chest pain, at times patient is bringing up some brown colored sputum. On 05/13/2019 patient seen in follow-up on selective care unit, still wheezy and congested, and she has been bringing up some mucus tinged with blood. Patient remains on 2 L of oxygen and the pulse ox of 98-99%, afebrile, hemodynamically stable, heart rate, remains in A. fib flutter with a rate of 87, she remains on the Route toe, and Cardizem CD 240 mg daily. She was started on oral Zithromax, she remains on IV steroids which we increased yesterday in view of increased bronchospastic state yesterday Objective - Vital Signs Vital signs: Vital Signs Temp 97.9 F 05/13/19 08:00 Pulse 84 05/13/19 09:00 Resp 16 05/13/19 08:00 BP 118/64 05/13/19 08:00 Pulse Ox 99 05/13/19 08:45 Intake & Output 05/12/19 05/13/19 05/13/19 18:59 06:59 18:59 Intake Total 720 Output Total 1100 Balance 720 -1100 Weight 76 kg Intake: Oral 720 Output: Urine 1100 Other: # Voids 3 - Exam GENERAL EXAM: Alert, very pleasant, 68-year-old white female, in no acute distress Breathing is comfortable, she was switched to 2 L per nasal cannula and is tolerating it well so far. Comfortable in no apparent distress. Patient has facial hair HEAD: Normocephalic/atraumatic. EYES: Normal reaction of pupils, equal size. Conjunctiva pink, sclera white. NOSE: Clear with pink turbinates. THROAT: No erythema or exudates. NECK: No masses, no JVD, no thyroid enlargement, no adenopathy. CHEST: No chest wall deformity. Symmetrical expansion. LUNGS: Equal air entry with scattered wheezing bilaterally, congested cough with occasional production of thick brownish yellow sputum CVS: Irregular rate and rhythm, normal S1 and S2, no gallops, no murmurs, no rubs ABDOMEN: Soft, nontender. No hepatosplenomegaly, normal bowel sounds, no guarding or rigidity. EXTREMITIES: No clubbing, no edema, no cyanosis, 2+ pulses and upper and lower extremities. MUSCULOSKELETAL: Muscle strength and tone normal. SPINE: No scoliosis or deformity SKIN: No rashes CENTRAL NERVOUS SYSTEM: Alert and oriented -3. No focal deficits, tone is normal in all 4 extremities. PSYCHIATRIC: Alert and oriented -3. Appropriate affect. Intact judgment and insight. - Labs CBC & Chem 7: 05/13/19 06:34 05/13/19 06:34 Labs: Abnormal Lab Results - Last 24 Hours (Table) 05/12/19 05/12/19 05/12/19 Range/Units 12:02 14:04 16:30 WBC (3.8-10.6) k/uL RBC (3.80-5.40) m/uL Hgb (11.4-16.0) gm/dL Hct (34.0-46.0) % Neutrophils # (1.3-7.7) k/uL Lymphocytes # (1.0-4.8) k/uL Sodium 136 L (137-145) mmol/L Carbon Dioxide 21 L (22-30) mmol/L BUN 41 H (7-17) mg/dL Creatinine 1.21 H (0.52-1.04) mg/dL Glucose 243 H (74-99) mg/dL POC Glucose (mg/dL) 174 H 158 H (75-99) mg/dL Calcium 7.4 L (8.4-10.2) mg/dL 05/12/19 05/13/19 05/13/19 Range/Units 21:01 06:34 06:34 WBC 14.6 H (3.8-10.6) k/uL RBC 3.56 L (3.80-5.40) m/uL Hgb 9.9 L (11.4-16.0) gm/dL Hct 31.8 L (34.0-46.0) % Neutrophils # 13.4 H (1.3-7.7) k/uL Lymphocytes # 0.7 L (1.0-4.8) k/uL Sodium (137-145) mmol/L Carbon Dioxide (22-30) mmol/L BUN 50 H (7-17) mg/dL Creatinine 1.28 H (0.52-1.04) mg/dL Glucose 168 H (74-99) mg/dL POC Glucose (mg/dL) 229 H (75-99) mg/dL Calcium 7.6 L (8.4-10.2) mg/dL 05/13/19 Range/Units 07:58 WBC (3.8-10.6) k/uL RBC (3.80-5.40) m/uL Hgb (11.4-16.0) gm/dL Hct (34.0-46.0) % Neutrophils # (1.3-7.7) k/uL Lymphocytes # (1.0-4.8) k/uL Sodium (137-145) mmol/L Carbon Dioxide (22-30) mmol/L BUN (7-17) mg/dL Creatinine (0.52-1.04) mg/dL Glucose (74-99) mg/dL POC Glucose (mg/dL) 192 H (75-99) mg/dL Calcium (8.4-10.2) mg/dL Microbiology - Last 24 Hours (Table) 05/10/19 20:19 Blood Culture - Preliminary Blood No Growth after 48 hours Assessment and Plan Plan: Assessment: #1. Acute dyspnea related to A. fib with RVR, and mild exacerbation of chronic bronchial asthma, unspecified. Chest x-ray not showing any acute process, patient presented with palpitations, A. fib RVR with a rate of 151, and wheezing. On today's evaluation 05/13/2019 patient remains in A. fib flutter with a controlled rate. #2. Recent upper respiratory infection #3. Chronic bronchial asthma, unspecified #4. Chronic hypoxic respiratory failure likely related to chronic CHF, and patient relates that she wears 2-3 L of oxygen on a regular basis #5. Obstructive sleep apnea on CPAP therapy with a pressure of 15 cm of water #6. Paroxysmal atrial fibrillation on Xarelto, remains in A. fib flutter with a controlled rate #7. Kidney disease stage III #8. Chronic congestive heart failure with preserved left ventricular systolic function #9. Essential hypertension #10. Type 2 diabetes mellitus without complications #11. Hyperlipidemia #12. Generalized anxiety disorder #13. Major depressive disorder #14. GERD/reflux #15. Hypercalcemia maintained on Sensipar, nightly serum calcium is 7.7 #16. History of MRSA infection in the abdominal wound following debridement of the left abdominal wall seroma #17. Chronic syndrome #8. Generalized medical debility and gait dysfunction Plan: Continue with same dose IV steroids, antibiotics, still congested, bringing up some blood-tinged mucus, small amounts, no massive hemoptysis, we'll repeat chest x-ray today, we'll send the sputum for culture, continue Zithromax. I performed a history & physical examination of the patient and discussed their management with my nurse practitioner, Marisa Redding. I reviewed the nurse practitioner's note and agree with the documented findings and plan of care. Lung sounds are positive for mild scattered wheezes and minimal bibasilar crackles . The findings and the impression was discussed with the patient. I attest to the documentation by the nurse practitioner. Time with Patient: Less than 30
--- NOTE | 2019-05-13 09:25 | XR ---
EXAMINATION TYPE: XR chest 1V portable DATE OF EXAM: 05/13/2019 Comparison: 05/10/2019 and 03/08/2016 CT. Clinical History: 68-year-old female cough, shortness of breath Findings: Heart remains mildly enlarged. Large patient body habitus casting hazy densities. Right hilar promine nce is unchanged suggesting underlying pulmonary hypertension. A 7 mm area of left suprahilar nodular ity suspected to correspond to a nodule present on the 03/08/2016 CT. Otherwise, no consolidation or pleural effusion. Impression: 1. Mild cardiomegaly and suspected underlying pulmonary arterial hypertension. No pulmonary edema. 2. 7 mm left suprahilar nodule likely corresponds to a nodule seen back on the 03/08/2016 CT. Nonemer gent follow-up contrast enhanced CT chest can assess for any interval change from that time.
[2019-05-13] MEDS: CINACALCET 30 MG TAB PO SCH (10:08)
[2019-05-13] MEDS: HYDROcodone/APAP 5-325MG 1 EACH TAB PO SCH ×2 (10:09→21:33)
[2019-05-13] MEDS: LORazepam 0.5 MG TAB PO SCH ×3 (10:09→21:33)
[2019-05-13] MEDS: AZITHROMYCIN 500 MG TAB PO SCH (10:09)
[2019-05-13] MEDS: SENNOSIDES-DOCUSATE SODIUM 1 EACH TAB PO SCH ×2 (10:51→21:34)
[2019-05-13] MEDS: SERTRALINE 100 MG TAB PO SCH (10:52)
[2019-05-13] MEDS: MAG HYDROX/AL HYDROX/SIMETH 30 ML CUP PO PRN ×2 (11:08→12:27)
[2019-05-13 12:09] LABS: Glucose,Whole Blood 186 mg/dL (75-99)
--- NOTE | 2019-05-13 15:07 | P.PN ---
Subjective Progress Note Date: 05/13/19 Principal diagnosis: Paroxysmal atrial fibrillation This is a pleasant 68-year-old female patient with history of paroxysmal atrial fibrillation as well as COPD as well as hypertension and dyslipidemia and underlying dementia was admitted to the hospital was A. fib with RVR. She was seen this morning. She continues to be in A. fib was controlled heart rates. She is on oral anticoagulation. She did have multiple episodes of hemoptysis but it has been less frequent and less intense. Otherwise she denies any chest pain or chest discomfort. Objective - Vital Signs Vital signs: Vital Signs Temp 98.2 F 05/13/19 11:12 Pulse 82 05/13/19 12:02 Resp 18 05/13/19 11:12 BP 141/67 05/13/19 11:12 Pulse Ox 100 05/13/19 11:12 Intake & Output 05/12/19 05/13/19 05/13/19 18:59 06:59 18:59 Intake Total 720 360 Output Total 1100 Balance 720 -1100 360 Weight 76 kg Intake: Oral 720 360 Output: Urine 1100 Other: Voiding Method Bedpan # Voids 3 1 # Bowel Movements 1 - Constitutional General appearance: Present: no acute distress - Respiratory Respiratory: bilateral: diminished - Cardiovascular Rhythm: irregularly irregular Heart sounds: normal: S1, S2 - Labs CBC & Chem 7: 05/13/19 06:34 05/13/19 06:34 Labs: Abnormal Lab Results - Last 24 Hours (Table) 05/12/19 05/12/19 05/13/19 Range/Units 16:30 21:01 06:34 WBC (3.8-10.6) k/uL RBC (3.80-5.40) m/uL Hgb (11.4-16.0) gm/dL Hct (34.0-46.0) % Neutrophils # (1.3-7.7) k/uL Lymphocytes # (1.0-4.8) k/uL BUN 50 H (7-17) mg/dL Creatinine 1.28 H (0.52-1.04) mg/dL Glucose 168 H (74-99) mg/dL POC Glucose (mg/dL) 158 H 229 H (75-99) mg/dL Calcium 7.6 L (8.4-10.2) mg/dL 05/13/19 05/13/19 05/13/19 Range/Units 06:34 07:58 12:07 WBC 14.6 H (3.8-10.6) k/uL RBC 3.56 L (3.80-5.40) m/uL Hgb 9.9 L (11.4-16.0) gm/dL Hct 31.8 L (34.0-46.0) % Neutrophils # 13.4 H (1.3-7.7) k/uL Lymphocytes # 0.7 L (1.0-4.8) k/uL BUN (7-17) mg/dL Creatinine (0.52-1.04) mg/dL Glucose (74-99) mg/dL POC Glucose (mg/dL) 192 H 186 H (75-99) mg/dL Calcium (8.4-10.2) mg/dL Microbiology - Last 24 Hours (Table) 05/10/19 20:19 Blood Culture - Preliminary Blood No Growth after 48 hours Assessment and Plan Assessment: Assessment #1 paroxysmal atrial fibrillation #2 COPD exacerbation #3 diabetes #4 underlying dementia Plan #1 continue the current medical regimen #2 follow-up with the patient
--- NOTE | 2019-05-13 15:58 | P.PN ---
Progress Note - Text Progress Note Date: 05/13/19 Chief Complaint: Shortness of breath History of presenting complaint: This is a pleasant 68-year-old patient of Dr. Mccoy. [facility]ident [facility] [address] . Has a legal guardian. Chronic stable medical conditions include CHF EF 50-60%, hypertension, hyperlipidemia, obstructive sleep apnea uses CPAP, chronic kidney disease stage III, anemia of kidney disease. Patient has got cognitive impairment and that the best of historians. Patient presented with shortness of breath some slight cough no fever and chills reported. Also had atrial fibrillation with a rapid ventricular rate. Was put on IV Cardizem drip. Patient has significant cognitive impairment. Doesn't give much insight and and answers questions randomly. Home uses a wheelchair and a walker. Denies any chest pain. Admitted with atrial fibrillation with rapid ventricular rate, asthma exacerbation. Responded well to bronchodilator steroids. Started on Xarelto. Today-. He is better. Some cough is present. Did cause some blood stained sputum.. Pulmonary was informed. Eating okay. Review of systems: Was done for constitutional, cardiovascular, GI, pulmonary. relevant finding as above Physical examination: VITAL SIGNS: 98.2, 88, 18, 141/67, 100% on 2 L GENERAL: BMI-31.6, laying in bed, but more comfortable EYES: Pupils equal. Conjunctiva normal. HEENT: External appearance of nose and ears normal, oral cavity grossly normal. NECK: JVD not raised; masses not palpable. HEART: Heart sounds irregular no edema. LUNGS: Respiratory rate increased; decreased breath sounds, some wheezing ABDOMEN: Soft, nontender, liver spleen not palpable, no masses palpable. PSYCH: Answering questions. INVESTIGATIONS, reviewed in the clinical context: White count 14.6 hemoglobin 9.9 bun 50 creatinine 1.28 Previous testing White count 4.5 hemoglobin 10.2 platelets 212 potassium 4.2 bun 30 creatinine 1.2 Labs from June 2018 show bun of 51 creatinine of 2.16 EKG tracing personally reviewed by me-SVT versus atrial fibrillation with a rapid ventricular rate Chest x-ray film personally reviewed by me-cardiomegaly, lung bob clear Assessment: -Paroxysmal atrial fibrillation with rapid ventricular rate, likely contributing to patient's shortness of breath and what to reverted to sinus rhythm -back to increased heart rate POA -Intermittent asthma with acute exacerbation, slowly improving, POA -Blood-tinged sputum on Xarelto-watch closely -Chronic medical debility uses a walker/recheck -Normocytic anemia of chronic kidney disease given -chronic congestive heart failure from diastolic dysfunction EF 50-60% -Essential hypertension -Hyperlipidemia -Obstructive sleep apnea uses a CPAP -Chronic kidney disease stage III from nephrosclerosis -Severe 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 Plan: Continue with bronchodilators, Zithromax, IV Solu-Medrol. Being followed by pulmonary we'll decide about Xarelto as per pulmonary.
[2019-05-13 17:15] LABS: Glucose,Whole Blood 144 mg/dL (75-99)
[2019-05-13] MEDS: SODIUM CHLORIDE 0.9% 1,000 ML IV SCH (17:15)
[2019-05-13 20:12] LABS: Glucose,Whole Blood 274 mg/dL (75-99)
[2019-05-13] MEDS: RIVAROXABAN 15 MG TAB PO SCH (21:33)
[2019-05-13] MEDS: ATORVASTATIN 40 MG TAB PO SCH (21:34)
[2019-05-13] MEDS: POLYETHYLENE GLYCOL 3350 17 GM POWD.PACK PO SCH (21:34)
[2019-05-13] MEDS: BENZOCAINE/MENTHOL LOZENG 1 EACH LOZENGE MUCOUS MEM PRN (23:11)
[2019-05-14 06:30] LABS: Glucose,Whole Blood 214 mg/dL (75-99)
[2019-05-14] MEDS: methylPREDNISolone SOD SUCCI 40 MG/ML 1 ML VIAL IV SCH ×4 (06:32→23:12)
[2019-05-14] MEDS: INSULIN ASPART (NovoLOG) 100 UNIT/ML VIAL SQ SCH ×4 (06:32→21:29)
[2019-05-14 06:49] LABS: Calcium 7.3 mg/dL (8.4-10.2); Potassium 4.2 mmol/L (3.5-5.1)
[2019-05-14] MEDS: CINACALCET 30 MG TAB PO SCH (08:51)
[2019-05-14] MEDS: SERTRALINE 100 MG TAB PO SCH (08:52)
[2019-05-14] MEDS: AZITHROMYCIN 500 MG TAB PO SCH (08:52)
[2019-05-14] MEDS: SENNOSIDES-DOCUSATE SODIUM 1 EACH TAB PO SCH ×2 (08:52→21:29)
[2019-05-14] MEDS: HYDROcodone/APAP 5-325MG 1 EACH TAB PO SCH ×2 (08:52→21:28)
[2019-05-14] MEDS: FAMOTIDINE 20 MG TAB PO SCH (08:52)
[2019-05-14] MEDS: DILTIAZEM CD 240 MG CAP.ER.24H PO SCH (08:52)
[2019-05-14] MEDS: MAG HYDROX/AL HYDROX/SIMETH 30 ML CUP PO PRN (08:57)
[2019-05-14] MEDS: ALBUTEROL NEBULIZED 2.5 MG/3 ML INHALATION SCH ×4 (09:22→21:24)
[2019-05-14] MEDS: FORMOTEROL FUMARATE 20 MCG/2 ML NEBU INHALATION SCH ×2 (09:22→21:24)
[2019-05-14] MEDS: BUDESONIDE 1 MG/2 ML NEBU INHALATION SCH ×2 (09:23→21:24)
--- NOTE | 2019-05-14 10:52 | P.PN ---
Subjective Progress Note Date: 05/14/19 The patient interviewed and examined resting comfortably in bed. She is hard of hearing. She states she does have some shortness of breath and continues to have episodes of hemoptysis. She denies any chest pain, chest pressure, palpitations, dizziness, lightheadedness. Echocardiogram shows LV function of 50-55% with mild AR, mildly asked, and mild MR GENERAL: This is a 68-year-old female in no apparent distress at the time of my examination. HEENT: Head is atraumatic, normocephalic. Pupils are equal, round. Sclerae anicteric. Conjunctivae are clear. Mucous membranes of the mouth are moist. Neck is supple. There is no jugular venous distention. No carotid bruit is heard. LUNGS: Rhonchorous breath sounds bilaterally. No chest wall tenderness is noted on palpation or with deep breathing. HEART: Irregular rate and rhythm without murmurs, rubs or gallops. S1 and S2 heard. ABDOMEN: Soft, nontender. Bowel sounds are heard. No organomegaly noted. EXTREMITIES: No evidence of peripheral edema and no calf tenderness noted. VASCULAR: Radial and dorsalis pedis pulses palpated, no evidence of clubbing. NEUROLOGIC: Patient is awake, alert and oriented x3. Vital signs: Blood pressures mildly elevated overnight with systolics reaching into the 160s. Heart rates averaging in the. Telemetry monitoring shows atrial fibrillation. Currently on 2 L nasal cannula. Impression: #1 paroxysmal atrial fibrillation, currently in A. fib, rate controlled #2 COPD exacerbation #3 diabetes mellitus #4 hypertension #5 dementia #6 hemoptysis, likely caused by Xarelto, currently on 15 mg Plan: Start losartan 25 mg for hypertension at bed time. Continue novel anticoagulation unless there are further recommendations from pulmonology. Continue to monitor. Objective - Vital Signs Vital signs: Vital Signs Temp 97.3 F L 05/14/19 05:05 Pulse 88 05/14/19 09:47 Resp 16 05/14/19 08:00 BP 170/87 05/14/19 08:00 Pulse Ox 100 05/14/19 08:00 Intake & Output 05/13/19 05/14/19 05/14/19 18:59 06:59 18:59 Intake Total 720 Balance 720 Weight 76 kg Intake: Oral 720 Other: Voiding Method Bedpan # Voids 1 1 # Bowel Movements 1 - Labs CBC & Chem 7: 05/13/19 06:34 05/14/19 05:45 Labs: Abnormal Lab Results - Last 24 Hours (Table) 05/13/19 05/13/19 05/13/19 Range/Units 12:07 17:13 20:10 BUN (7-17) mg/dL Creatinine (0.52-1.04) mg/dL Glucose (74-99) mg/dL POC Glucose (mg/dL) 186 H 144 H 274 H (75-99) mg/dL Calcium (8.4-10.2) mg/dL 05/14/19 05/14/19 Range/Units 05:45 06:28 BUN 51 H (7-17) mg/dL Creatinine 1.28 H (0.52-1.04) mg/dL Glucose 193 H (74-99) mg/dL POC Glucose (mg/dL) 214 H (75-99) mg/dL Calcium 7.3 L (8.4-10.2) mg/dL Microbiology - Last 24 Hours (Table) 05/13/19 09:06 Gram Stain - Preliminary Sputum 05/10/19 20:19 Blood Culture - Preliminary Blood No Growth after 72 hours
[2019-05-14 12:26] LABS: Glucose,Whole Blood 190 mg/dL (75-99)
[2019-05-14] MEDS: LORazepam 0.5 MG TAB PO SCH ×2 (12:52→21:29)
--- NOTE | 2019-05-14 13:34 | P.PN ---
Subjective Progress Note Date: 05/14/19 Principal diagnosis: Aileen ventilation with RVR, acute exacerbation of mild persistent chronic bronchial asthma 68-year-old white female patient of Dr. Mccoy, a resident of the [facility], with past medical history of hypertension, chronic kidney disease stage III, chronic anemia, obstructive sleep apnea on CPAP, paroxysmal atrial fibrillation, type 2 diabetes mellitus without complications, it bronchial asthma, unspecified, GERD/reflux, chronic congestive heart failure, hyperlipidemia, major depressive disorder, vascular dementia and questionable history of tuberculosis in childhood, who was brought into the emergency department on 2019 evaluation of tachycardia, difficulty breathing with wheezing complaints of palpitations. Patient had a recent upper respiratory infection. Her symptoms were also associated with chest discomfort, pain with inspiration, fever and cough. EKG showed atrial fibrillation with rapid ventricular response with a rate of 151, patient was started on Cardizem drip for rate control, chest x-ray was completed showing no active cardiopulmonary disease. Right hip and pelvis x-ray was completed showing advanced arthritic changes in the right hip joint with superior migration of the femoral head which progressed since prior computed tomography scan, and possibility of septic arthritis was not excluded, but no acute fractures were seen. Patient has been afebrile while in the hospital, no evidence of leukocytosis, blood cell count is 4.5, immobile globin is 10.2, correlation profile was within normal limits, electrolytes were unremarkable, B1 is 30 creatinine is 1.2, troponins were 0.012, and 0.014, proBNP was 3430, lactic acid was normal at 1.6. This morning she remains on Cardizem drip at 5 mg per hour, she is in sinus rhythm with a controlled rate, her breathing is comfortable, she was on CPAP overnight with a pressure of 15 cm of water, she has been placed back on nasal cannula, and she denies difficulty breathing. Patient is on Xarelto. for history of paroxysmal atrial fibrillation Patient is a lifetime nonsmoker. She denies ever seeing a metrology specialist, and she is not on any maintenance inhalers for breathing treatments. On 05/12/2019 patient seen in follow-up on selective care unit, she is awake and alert, she is on 2 L of oxygen and the pulse ox of 98%, afebrile, hemodyn amically stable, patient sounds more congested and wheezy and today's exam, IV Solu-Medrol has been added and patient is currently receiving 40 mg every 8 hours. She remains in sinus rhythm, with a controlled rate, no complaints of chest pain, at times patient is bringing up some brown colored sputum. On 05/13/2019 patient seen in follow-up on selective care unit, still wheezy and congested, and she has been bringing up some mucus tinged with blood. Patient remains on 2 L of oxygen and the pulse ox of 98-99%, afebrile, hemodynamically stable, heart rate, remains in A. fib flutter with a rate of 87, she remains on the Route toe, and Cardizem CD 240 mg daily. She was started on oral Zithromax, she remains on IV steroids which we increased yesterday in view of increased bronchospastic state yesterday The patient was seen today 05/14/2019 in follow-up on the selective care unit. She is currently sitting up at the bedside. Awake and alert in no acute distress. Maintaining O2 saturations up to 100% on 2 L/m per nasal cannula. She's afebrile. Hemodynamically stable. Blood culture reveals no growth. Sputum culture reveals no growth to date. Sodium 138. Potassium 4.2. Creatini ne 1.28. She is continued on bronchodilators, IV Solu-Medrol. Anticoagulated with Xarelto. Objective - Vital Signs Vital signs: Vital Signs Temp 97.3 F L 05/14/19 05:05 Pulse 81 05/14/19 12:00 Resp 16 05/14/19 12:00 BP 134/65 05/14/19 12:00 Pulse Ox 100 05/14/19 12:00 Intake & Output 05/13/19 05/14/19 05/14/19 18:59 06:59 18:59 Intake Total 720 236 Output Total 300 Balance 720 -64 Weight 76 kg Intake: Oral 720 236 Output: Urine 300 Other: Voiding Method Bedpan Bedpan # Voids 1 1 # Bowel Movements 1 - Exam GENERAL EXAM: Alert, pleasant, 68-year-old female patient, in no acute distress, 2 L per nasal cannula and saturations up to 100%. Comfortable in no apparent distress. HEAD: Normocephalic/atraumatic. EYES: Normal reaction of pupils, equal size. Conjunctiva pink, sclera white. NOSE: Clear with pink turbinates. THROAT: No erythema or exudates. NECK: No masses, no JVD, no thyroid enlargement, no adenopathy. CHEST: No chest wall deformity. Symmetrical expansion. LUNGS: Equal air entry with scattered wheezing bilaterally, congested cough with occasional production of thick brownish yellow sputum CVS: Irregular rate and rhythm, normal S1 and S2, no gallops, no murmurs, no rubs ABDOMEN: Soft, nontender. No hepatosplenomegaly, normal bowel sounds, no guarding or rigidity. EXTREMITIES: No clubbing, no edema, no cyanosis, 2+ pulses and upper and lower extremities. MUSCULOSKELETAL: Muscle strength and tone normal. SPINE: No scoliosis or deformity SKIN: No rashes CENTRAL NERVOUS SYSTEM: Alert and oriented -3. No focal deficits, tone is normal in all 4 extremities. PSYCHIATRIC: Alert and oriented -3. Appropriate affect. Intact judgment and insight. - Labs CBC & Chem 7: 05/13/19 06:34 05/14/19 05:45 Labs: Abnormal Lab Results - Last 24 Hours (Table) 05/13/19 05/13/19 05/14/19 Range/Units 17:13 20:10 05:45 BUN 51 H (7-17) mg/dL Creatinine 1.28 H (0.52-1.04) mg/dL Glucose 193 H (74-99) mg/dL POC Glucose (mg/dL) 144 H 274 H (75-99) mg/dL Calcium 7.3 L (8.4-10.2) mg/dL 05/14/19 05/14/19 Range/Units 06:28 12:25 BUN (7-17) mg/dL Creatinine (0.52-1.04) mg/dL Glucose (74-99) mg/dL POC Glucose (mg/dL) 214 H 190 H (75-99) mg/dL Calcium (8.4-10.2) mg/dL Microbiology - Last 24 Hours (Table) 05/13/19 09:06 Gram Stain - Preliminary Sputum 05/10/19 20:19 Blood Culture - Preliminary Blood No Growth after 72 hours Assessment and Plan Assessment: #1. Acute dyspnea related to A. fib with RVR, and mild exacerbation of chronic bronchial asthma, unspecified. Chest x-ray not showing any acute process, patient presented with palpitations, A. fib RVR with a rate of 151, and wheezing. #2. Recent upper respiratory infection #3. Chronic bronchial asthma, unspecified #4. Chronic hypoxic respiratory failure likely related to chronic CHF, and patient relates that she wears 2-3 L of oxygen on a regular basis #5. Obstructive sleep apnea on CPAP therapy with a pressure of 15 cm of water #6. Paroxysmal atrial fibrillation on Xarelto, remains in A. fib flutter with a controlled rate #7. Kidney disease stage III #8. Chronic congestive heart failure with preserved left ventricular systolic function #9. Essential hypertension #10. Type 2 diabetes mellitus without complications #11. Hyperlipidemia #12. Generalized anxiety disorder #13. Major depressive disorder #14. GERD/reflux #15. Hypercalcemia maintained on Sensipar, nightly serum calcium is 7.7 #16. History of MRSA infection in the abdominal wound following debridement of the left abdominal wall seroma #17. Chronic syndrome #8. Generalized medical debility and gait dysfunction Plan: The patient was seen and evaluated by Dr. Zhang. No blood-tinged sputum today. No excessive hemoptysis. Xarelto at 15 mg at bedtime. We will continue to follow and make further recommendations based on her clinical status. I, the cosigning physician, performed a history & physical examination of the patient. Lungs sounds with bilateral scattered rhonchi. Maintaining good O2 saturations in the 90s on 2 L/m per nasal cannula. I discussed the assessment and plan of care with my nurse practitioner, Ambika Gonzalez. I attest to the above note as dictated by her.
[2019-05-14 16:44] LABS: Glucose,Whole Blood 144 mg/dL (75-99)
[2019-05-14 20:00] LABS: Glucose,Whole Blood 252 mg/dL (75-99)
[2019-05-14] MEDS: POLYETHYLENE GLYCOL 3350 17 GM POWD.PACK PO SCH (21:29)
[2019-05-14] MEDS: ATORVASTATIN 40 MG TAB PO SCH (21:29)
[2019-05-14] MEDS: RIVAROXABAN 15 MG TAB PO SCH (21:29)
[2019-05-14] MEDS: LOSARTAN 25 MG TAB PO SCH (21:30)
[2019-05-14] MEDS: SODIUM CHLORIDE 0.9% 1,000 ML IV SCH (21:37)
--- NOTE | 2019-05-14 21:55 | P.PN ---
Subjective Progress Note Date: 05/14/19 Principal diagnosis: paroxysmal atrial fibrillation with RVR acute asthma exacerbation This is a pleasant 68-year-old patient of Dr. Mccoy. Resident of [facility] off [address] . Has a legal guardian. Chronic stable medical conditions include CHF EF 50-60%, hypertension, hyperlipidemia, obstructive sleep apnea uses CPAP, chronic kidney disease stage III, anemia of kidney disease. Patient has got cognitive impairment and that the best of historians. Patient presented with shortness of breath some slight cough no fever and chills reported. Also had atrial fibrillation with a rapid ventricular rate. Was put on IV Cardizem drip. Patient has significant cognitive impairment. Doesn't give much insight and and answers questions randomly. Home uses a wheelchair and a walker. Denies any chest pain. Admitted with atrial fibrillation with rapid ventricular rate, asthma exacerbation. Responded well to bronchodilator steroids. Started on Xarelto. INVESTIGATIONS, reviewed in the clinical context: White count 14.6 hemoglobin 9.9 bun 50 creatinine 1.28 Previous testing White count 4.5 hemoglobin 10.2 platelets 212 potassium 4.2 bun 30 creatinine 1.2 Labs from June 2018 show bun of 51 creatinine of 2.16 EKG tracing personally reviewed by cheSVT versus atrial fibrillation with a rapid ventricular rate Chest x-ray film personally reviewed by az-cardiomegaly, lung bob clear 05/14/2019 Patient is currently lying in the bed comfortably. Patient is hard of hearing. Currently on 2 L oxygen via nasal cannula. Still having expiratory wheezing a scattered rhonchi on lung examination. Patient is being continued on IV Solu- Medrol and duo nebs. Heart rate is controlled. Patient is on anticoagulation with xarelto for atrial fibrillation paroxysmal. no further episodes of blood tinged sputum. Laboratory data reviewed. creatinine level improved to 1.28 Active Medications Hydrocodone Bitart/Acetaminophen ([place] 5-325) 2 each PO BID [facility] Last Admin: 05/14/19 21:28 Dose: 2 each Documented by: Al Hydroxide/Mg Hydroxide (Maalox) 10 ml PO Q4H PRN PRN Reason: Indigestion Last Admin: 05/14/19 08:57 Dose: 10 ml Documented by: Albuterol Sulfate (Ventolin Nebulized) 2.5 mg INHALATION RT-QID [facility] Last Admin: 05/14/19 21:24 Dose: 2.5 mg Documented by: Atorvastatin Calcium (Lipitor) 40 mg PO HS [facility] Last Admin: 05/14/19 21:29 Dose: 40 mg Documented by: Azithromycin (Zithromax) 500 mg PO DAILY [facility] Last Admin: 05/14/19 08:52 Dose: 500 mg Documented by: Benzocaine/Menthol (Cepacol Lozenge) 1 each MUCOUS MEM Q4HR PRN PRN Reason: Cough Last Admin: 05/13/19 23:11 Dose: 1 each Documented by: Budesonide (Pulmicort) 1 mg INHALATION RT-BID [facility] Last Admin: 05/14/19 21:24 Dose: 1 mg Documented by: Cinacalcet (Sensipar) 30 mg PO DAILY [facility] Last Admin: 05/14/19 08:51 Dose: 30 mg Documented by: Diltiazem HCl (Cardizem Cd) 240 mg PO DAILY [facility] Last Admin: 05/14/19 08:52 Dose: 240 mg Documented by: Famotidine (Pepcid) 20 mg PO DAILY@0800 [facility] Last Admin: 05/14/19 08:52 Dose: 20 mg Documented by: Formoterol Fumarate (Perforomist) 20 mcg INHALATION RT-BID [facility] Last Admin: 05/14/19 21:24 Dose: 20 mcg Documented by: Sodium Chloride (Saline 0.9%) 1,000 mls @ 10 mls/hr IV .Q24H [facility] Last Admin: 05/14/19 21:37 Dose: Not Given Documented by: Insulin Aspart (Novolog) 0 unit SQ ACHS [facility]; Protocol Last Admin: 05/14/19 21:29 Dose: 4 unit Documented by: Lorazepam (Ativan) 0.5 mg PO BID [facility] Last Admin: 05/14/19 21:29 Dose: 0.5 mg Documented by: Losartan Potassium (Cozaar) 25 mg PO DAILY [facility] Last Admin: 05/14/19 21:30 Dose: 25 mg Documented by: Magnesium Hydroxide (Milk Of Magnesia) 2,400 mg PO DAILY PRN PRN Reason: Constipation Methylprednisolone Sodium Succinate (Solu-Medrol) 40 mg IV Q6HR [facility] Last Admin: 05/14/19 21:27 Dose: 40 mg Documented by: Morphine Sulfate (Morphine Sulfate (Inj)) 4 mg IV Q4HR PRN PRN Reason: Chest Pain Nitroglycerin (Nitrostat) 0.4 mg SUBLINGUAL Q5M PRN PRN Reason: Chest Pain Polyethylene Glycol (Miralax) 17 gm PO [facility] Last Admin: 05/14/19 21:29 Dose: 17 gm Documented by: Rivaroxaban (Xarelto) 15 mg PO HS [facility] Last Admin: 05/14/19 21:29 Dose: 15 mg Documented by: Senna/Docusate Sodium (Senokot-S) 1 each PO BID [facility] Last Admin: 05/14/19 21:29 Dose: 1 each Documented by: Sertraline HCl (Zoloft) 150 mg PO DAILY [facility] Last Admin: 05/14/19 08:52 Dose: 150 mg Documented by: Sodium Chloride (Saline Flush) 10 ml IV BID [facility] Last Admin: 05/14/19 21:37 Dose: 10 ml Documented by: Objective - Vital Signs Vital signs: Vital Signs Temp 97.3 F L 05/14/19 05:05 Pulse 81 05/14/19 12:00 Resp 16 05/14/19 12:00 BP 134/65 05/14/19 12:00 Pulse Ox 100 05/14/19 12:00 Intake & Output 05/13/19 05/14/19 05/14/19 18:59 06:59 18:59 Intake Total 720 236 Output Total 300 Balance 720 -64 Weight 76 kg Intake: Oral 720 236 Output: Urine 300 Other: Voiding Method Bedpan Bedpan # Voids 1 1 # Bowel Movements 1 - Exam PHYSICAL EXAMINATION: Patient is lying in the bed comfortably, no acute distress, awake alert and oriented.hard of hearing. HEENT: Normocephalic. Neck is supple. Pupils reactive. Nostrils clear. Oral cavity is moist. Ears reveal no drainage. Neck reveals no JVD, carotid bruits, or thyromegaly. CHEST EXAMINATION: Trachea is central. Symmetrical expansion. bilateral expiratory wheezing and scattered rhonchi. Nonlabored breathing. CARDIAC: Normal S1, S2 with no gallops. No murmurs . irregular rhythm ABDOMEN: Soft. Bowel sounds normal. No organomegaly. No abdominal bruits. Extremities: reveal no edema. No clubbing or cyanosis Neurologically awake, alert, oriented x3 with well-coordinated movements. No focal deficits noted Skin: No rash or skin lesions. Psychiatric: Coperative. Nonsuicidal Musculoskeletal: No joint swelling or deformity. Normal range of motion. - Labs CBC & Chem 7: 05/13/19 06:34 05/14/19 05:45 Labs: Abnormal Lab Results - Last 24 Hours (Table) 05/13/19 05/13/19 05/14/19 Range/Units 17:13 20:10 05:45 BUN 51 H (7-17) mg/dL Creatinine 1.28 H (0.52-1.04) mg/dL Glucose 193 H (74-99) mg/dL POC Glucose (mg/dL) 144 H 274 H (75-99) mg/dL Calcium 7.3 L (8.4-10.2) mg/dL 05/14/19 05/14/19 Range/Units 06:28 12:25 BUN (7-17) mg/dL Creatinine (0.52-1.04) mg/dL Glucose (74-99) mg/dL POC Glucose (mg/dL) 214 H 190 H (75-99) mg/dL Calcium (8.4-10.2) mg/dL Microbiology - Last 24 Hours (Table) 05/13/19 09:06 Gram Stain - Preliminary Sputum Sputum Culture - Preliminary Presumptive Staph aureus 05/10/19 20:19 Blood Culture - Preliminary Blood No Growth after 72 hours Assessment and Plan Assessment: -Paroxysmal atrial fibrillation with rapid ventricular rate, likely contributing to patient's shortness of breath and what to reverted to sinus rhythm -back to increased heart rate POA -Intermittent asthma with acute exacerbation, slowly improving, POA -chronic hypoxic respiratory failure on home oxygen -Blood-tinged sputum on Xarelto-watch closely -Chronic medical debility uses a walker/recheck -Normocytic anemia of chronic kidney disease given -chronic congestive heart failure from diastolic dysfunction EF 50-60% -Essential hypertension -Hyperlipidemia -Obstructive sleep apnea uses a CPAP -Chronic kidney disease stage III from nephrosclerosis -Severe 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 Plan: Continue with bronchodilators, Zithromax, IV Solu-Medrol. patient is being continued onxarelto 50 mg at bedtime. Pulmonary and cardiology is following. Time with Patient: Greater than 30
[2019-05-15 06:06] LABS: Glucose,Whole Blood 229 mg/dL (75-99)
[2019-05-15] MEDS: INSULIN ASPART (NovoLOG) 100 UNIT/ML VIAL SQ SCH ×4 (06:22→22:54)
[2019-05-15] MEDS: methylPREDNISolone SOD SUCCI 40 MG/ML 1 ML VIAL IV SCH ×3 (06:22→17:54)
[2019-05-15] MEDS: BENZOCAINE/MENTHOL LOZENG 1 EACH LOZENGE MUCOUS MEM PRN (06:25)
[2019-05-15 06:30] LABS: Basophils % (A) 0 %; Eosinophils % (A) 0 %; HGB 8.7 gm/dL (11.4-16.0); Lymphocytes # (A) 0.6 k/uL (1.0-4.8); Lymphocytes % (A) 6 %; MCH 27.4 pg (25.0-35.0); MCHC 31.1 g/dL (31.0-37.0); MCV 88.1 fL (80.0-100.0); Mean Platelet Volume 8.1; Monocytes # (A) 0.4 k/uL (0-1.0); Monocytes % (A) 3 %; Neutrophils # (A) 9.9 k/uL (1.3-7.7); Neutrophils % (A) 90 %; Platelet Count 221 k/uL (150-450); RBC 3.18 m/uL (3.80-5.40); RDW 14.7 % (11.5-15.5)
[2019-05-15 06:44] LABS: Calcium 7.2 mg/dL (8.4-10.2); Potassium 4.8 mmol/L (3.5-5.1)
[2019-05-15] MEDS: HYDROcodone/APAP 5-325MG 1 EACH TAB PO SCH (08:24)
[2019-05-15] MEDS: CINACALCET 30 MG TAB PO SCH (08:25)
[2019-05-15] MEDS: FAMOTIDINE 20 MG TAB PO SCH (08:25)
[2019-05-15] MEDS: AZITHROMYCIN 500 MG TAB PO SCH (08:25)
[2019-05-15] MEDS: DILTIAZEM CD 240 MG CAP.ER.24H PO SCH (08:25)
[2019-05-15] MEDS: SERTRALINE 100 MG TAB PO SCH (08:25)
[2019-05-15] MEDS: LOSARTAN 25 MG TAB PO SCH (08:26)
[2019-05-15] MEDS: SENNOSIDES-DOCUSATE SODIUM 1 EACH TAB PO SCH ×2 (08:26→22:53)
[2019-05-15] MEDS: LORazepam 0.5 MG TAB PO SCH ×2 (08:30→22:53)
[2019-05-15] MEDS: MAG HYDROX/AL HYDROX/SIMETH 30 ML CUP PO PRN (08:31)
[2019-05-15] MEDS: ALBUTEROL NEBULIZED 2.5 MG/3 ML INHALATION SCH ×4 (08:52→20:49)
[2019-05-15] MEDS: BUDESONIDE 1 MG/2 ML NEBU INHALATION SCH ×2 (08:52→20:49)
[2019-05-15] MEDS: FORMOTEROL FUMARATE 20 MCG/2 ML NEBU INHALATION SCH ×2 (08:52→20:49)
[2019-05-15] MEDS ORDERED: VANCOMYCIN IV PER PHARMACY 1 EACH MISC MISCELLANE PRN (10:11)
[2019-05-15 12:17] LABS: Glucose,Whole Blood 244 mg/dL (75-99)
--- NOTE | 2019-05-15 12:32 | P.PN ---
Subjective Progress Note Date: 05/15/19 05/14/2019 The patient interviewed and examined resting comfortably in bed. She is hard of hearing. She states she does have some shortness of breath and continues to have episodes of hemoptysis. She denies any chest pain, chest pressure, palpitations, dizziness, lightheadedness. Echocardiogram shows LV function of 50-55% with mild AR, mildly asked, and mild MR 05/15/2019 Patient interviewed and examined lying comfortably in bed. She states her shortness of breath has improved and her hemoptysis has resolved. She states she is now coughing up dark yellow sputum. She denies any chest pain, chest pressure, palpitations, dizziness, lightheadedness. GENERAL: Well-appearing, well-nourished and in no acute distress. NECK: Supple without JVD or thyromegaly. LUNGS: Breath sounds rhonchorous. Respiration equal and unlabored. Bilateral expiratory wheezes, worse on the left. HEART: Irregular rate and rhythm without murmurs, rubs or gallops. S1 and S2 heard. EXTREMITIES: Normal range of motion, no edema. No clubbing or cyanosis. Peripheral pulses intact and strong. Vital signs: Blood pressure 130/75, respirations 16, heart rate 68, temperature 97.5 oral, 100% on 3 L nasal cannula Telemetry overnight shows atrial fibrillation with heart rates in the 80s Impression: #1 paroxysmal atrial fibrillation, currently in A. fib, rate controlled #2 COPD exacerbation #3 diabetes mellitus #4 hypertension #5 dementia #6 hemoptysis, likely caused by Xarelto, currently on 15 mg Plan: Continue current medication regimen. No further recommendations from the cardiac standpoint. Objective - Vital Signs Vital signs: Vital Signs Temp 97.5 F L 05/15/19 08:00 Pulse 72 05/15/19 12:23 Resp 16 05/15/19 11:45 BP 130/75 05/15/19 08:00 Pulse Ox 100 05/15/19 08:00 Intake & Output 05/14/19 05/15/19 05/15/19 18:59 06:59 18:59 Intake Total 680 Output Total 800 Balance -120 Weight 73.5 kg Intake: Oral 680 Output: Urine 800 Other: Voiding Method Bedpan Bedpan # Voids 2 1 - Labs CBC & Chem 7: 05/15/19 05:35 05/15/19 05:35 Labs: Abnormal Lab Results - Last 24 Hours (Table) 05/14/19 05/14/19 05/15/19 Range/Units 16:42 19:58 05:35 WBC (3.8-10.6) k/uL RBC (3.80-5.40) m/uL Hgb (11.4-16.0) gm/dL Hct (34.0-46.0) % Neutrophils # (1.3-7.7) k/uL Lymphocytes # (1.0-4.8) k/uL Sodium 136 L (137-145) mmol/L BUN 50 H (7-17) mg/dL Creatinine 1.35 H (0.52-1.04) mg/dL Glucose 208 H (74-99) mg/dL POC Glucose (mg/dL) 144 H 252 H (75-99) mg/dL Calcium 7.2 L (8.4-10.2) mg/dL 05/15/19 05/15/19 05/15/19 Range/Units 05:35 06:04 12:15 WBC 11.0 H (3.8-10.6) k/uL RBC 3.18 L (3.80-5.40) m/uL Hgb 8.7 L (11.4-16.0) gm/dL Hct 28.0 L (34.0-46.0) % Neutrophils # 9.9 H (1.3-7.7) k/uL Lymphocytes # 0.6 L (1.0-4.8) k/uL Sodium (137-145) mmol/L BUN (7-17) mg/dL Creatinine (0.52-1.04) mg/dL Glucose (74-99) mg/dL POC Glucose (mg/dL) 229 H 244 H (75-99) mg/dL Calcium (8.4-10.2) mg/dL Microbiology - Last 24 Hours (Table) 05/13/19 09:06 Gram Stain - Final Sputum Sputum Culture - Final Methicillin resist S. aureus 05/10/19 20:19 Blood Culture - Preliminary Blood No Growth after 96 hours
[2019-05-15] MEDS: VANCOMYCIN 1,500 MG in SODIUM CHLORIDE 0.9% 250 ML IVPB SCH (12:40)
--- NOTE | 2019-05-15 12:43 | P.PN ---
Subjective Progress Note Date: 05/15/19 Principal diagnosis: Aileen ventilation with RVR, acute exacerbation of mild persistent chronic bronchial asthma 68-year-old white female patient of Dr. Mccoy, a resident of the [facility], with past medical history of hypertension, chronic kidney disease stage III, chronic anemia, obstructive sleep apnea on CPAP, paroxysmal atrial fibrillation, type 2 diabetes mellitus without complications, it bronchial asthma, unspecified, GERD/reflux, chronic congestive heart failure, hyperlipidemia, major depressive disorder, vascular dementia and questionable history of tuberculosis in childhood, who was brought into the emergency department on 2019 evaluation of tachycardia, difficulty breathing with wheezing complaints of palpitations. Patient had a recent upper respiratory infection. Her symptoms were also associated with chest discomfort, pain with inspiration, fever and cough. EKG showed atrial fibrillation with rapid ventricular response with a rate of 151, patient was started on Cardizem drip for rate control, chest x-ray was completed showing no active cardiopulmonary disease. Right hip and pelvis x-ray was completed showing advanced arthritic changes in the right hip joint with superior migration of the femoral head which progressed since prior computed tomography scan, and possibility of septic arthritis was not excluded, but no acute fractures were seen. Patient has been afebrile while in the hospital, no evidence of leukocytosis, blood cell count is 4.5, immobile globin is 10.2, correlation profile was within normal limits, electrolytes were unremarkable, B1 is 30 creatinine is 1.2, troponins were 0.012, and 0.014, proBNP was 3430, lactic acid was normal at 1.6. This morning she remains on Cardizem drip at 5 mg per hour, she is in sinus rhythm with a controlled rate, her breathing is comfortable, she was on CPAP overnight with a pressure of 15 cm of water, she has been placed back on nasal cannula, and she denies difficulty breathing. Patient is on Xarelto. for history of paroxysmal atrial fibrillation Patient is a lifetime nonsmoker. She denies ever seeing a change control specialist, and she is not on any maintenance inhalers for breathing treatments. On 05/12/2019 patient seen in follow-up on selective care unit, she is awake and alert, she is on 2 L of oxygen and the pulse ox of 98%, afebrile, hemodyn amically stable, patient sounds more congested and wheezy and today's exam, IV Solu-Medrol has been added and patient is currently receiving 40 mg every 8 hours. She remains in sinus rhythm, with a controlled rate, no complaints of chest pain, at times patient is bringing up some brown colored sputum. On 05/13/2019 patient seen in follow-up on selective care unit, still wheezy and congested, and she has been bringing up some mucus tinged with blood. Patient remains on 2 L of oxygen and the pulse ox of 98-99%, afebrile, hemodynamically stable, heart rate, remains in A. fib flutter with a rate of 87, she remains on the Route toe, and Cardizem CD 240 mg daily. She was started on oral Zithromax, she remains on IV steroids which we increased yesterday in view of increased bronchospastic state yesterday The patient was seen today 05/14/2019 in follow-up on the selective care unit. She is currently sitting up at the bedside. Awake and alert in no acute distress. Maintaining O2 saturations up to 100% on 2 L/m per nasal cannula. She's afebrile. Hemodynamically stable. Blood culture reveals no growth. Sputum culture reveals no growth to date. Sodium 138. Potassium 4.2. Creatini ne 1.28. She is continued on bronchodilators, IV Solu-Medrol. Anticoagulated with Xarelto. The patient is seen today 05/15/2019 in follow-up on selective care unit. She is currently resting comfortably in bed. Awake and alert in no acute distress. Maintaining O2 saturations up to 100% on 3 L/m per nasal cannula. She's afebrile. Hemodynamically stable. Sputum culture is positive for MRSA. Vancomycin has been initiated. White count 11.0. Hemoglobin 8.7. Sodium 136. Potassium 4.8. Creatinine 1.35. She remains on bronchodilators and IV Solu- Medrol. Objective - Vital Signs Vital signs: Vital Signs Temp 97.5 F L 05/15/19 08:00 Pulse 72 05/15/19 12:23 Resp 16 05/15/19 11:45 BP 130/75 05/15/19 08:00 Pulse Ox 100 05/15/19 08:00 Intake & Output 05/14/19 05/15/19 05/15/19 18:59 06:59 18:59 Intake Total 680 Output Total 800 Balance -120 Weight 73.5 kg Intake: Oral 680 Output: Urine 800 Other: Voiding Method Bedpan Bedpan # Voids 2 1 - Exam GENERAL EXAM: Alert, pleasant, 68-year-old female patient, very hard of hearing, in no acute distress, 3 L per nasal cannula and saturations up to 100%. Comf ortable in no apparent distress. HEAD: Normocephalic/atraumatic. EYES: Normal reaction of pupils, equal size. Conjunctiva pink, sclera white. NOSE: Clear with pink turbinates. THROAT: No erythema or exudates. NECK: No masses, no JVD, no thyroid enlargement, no adenopathy. CHEST: No chest wall deformity. Symmetrical expansion. LUNGS: Equal air entry with scattered wheezing bilaterally, congested cough with occasional production of thick brownish yellow sputum CVS: Irregular rate and rhythm, normal S1 and S2, no gallops, no murmurs, no rubs ABDOMEN: Soft, nontender. No hepatosplenomegaly, normal bowel sounds, no guarding or rigidity. EXTREMITIES: No clubbing, no edema, no cyanosis, 2+ pulses and upper and lower extremities. MUSCULOSKELETAL: Muscle strength and tone normal. SPINE: No scoliosis or deformity SKIN: No rashes CENTRAL NERVOUS SYSTEM: No focal deficits, tone is normal in all 4 extremities. PSYCHIATRIC: Alert and oriented -3. Appropriate affect. Intact judgment and insight. - Labs CBC & Chem 7: 05/15/19 05:35 05/15/19 05:35 Labs: Abnormal Lab Results - Last 24 Hours (Table) 05/14/19 05/14/19 05/15/19 Range/Units 16:42 19:58 05:35 WBC (3.8-10.6) k/uL RBC (3.80-5.40) m/uL Hgb (11.4-16.0) gm/dL Hct (34.0-46.0) % Neutrophils # (1.3-7.7) k/uL Lymphocytes # (1.0-4.8) k/uL Sodium 136 L (137-145) mmol/L BUN 50 H (7-17) mg/dL Creatinine 1.35 H (0.52-1.04) mg/dL Glucose 208 H (74-99) mg/dL POC Glucose (mg/dL) 144 H 252 H (75-99) mg/dL Calcium 7.2 L (8.4-10.2) mg/dL 05/15/19 05/15/19 05/15/19 Range/Units 05:35 06:04 12:15 WBC 11.0 H (3.8-10.6) k/uL RBC 3.18 L (3.80-5.40) m/uL Hgb 8.7 L (11.4-16.0) gm/dL Hct 28.0 L (34.0-46.0) % Neutrophils # 9.9 H (1.3-7.7) k/uL Lymphocytes # 0.6 L (1.0-4.8) k/uL Sodium (137-145) mmol/L BUN (7-17) mg/dL Creatinine (0.52-1.04) mg/dL Glucose (74-99) mg/dL POC Glucose (mg/dL) 229 H 244 H (75-99) mg/dL Calcium (8.4-10.2) mg/dL Microbiology - Last 24 Hours (Table) 05/13/19 09:06 Gram Stain - Final Sputum Sputum Culture - Final Methicillin resist S. aureus 05/10/19 20:19 Blood Culture - Preliminary Blood No Growth after 96 hours Assessment and Plan Assessment: #1. Acute on chronic hypoxic respiratory failure secondary to A. fib with RVR, mild exacerbation of chronic bronchial asthma, and MRSA positive sputum #2. Recent upper respiratory infection #3. Chronic bronchial asthma, unspecified #4. Chronic hypoxic respiratory failure likely related to chronic CHF, and patient relates that she wears 2-3 L of oxygen on a regular basis #5. Obstructive sleep apnea on CPAP therapy with a pressure of 15 cm of water #6. Paroxysmal atrial fibrillation on Xarelto, remains in A. fib flutter with a controlled rate #7. Kidney disease stage III #8. Chronic congestive heart failure with preserved left ventricular systolic function #9. Essential hypertension #10. Type 2 diabetes mellitus without complications #11. Hyperlipidemia #12. Generalized anxiety disorder #13. Major depressive disorder #14. GERD/reflux #15. Hypercalcemia maintained on Sensipar, nightly serum calcium is 7.7 #16. History of MRSA infection in the abdominal wound following debridement of the left abdominal wall seroma #17. Chronic syndrome #8. Generalized medical debility and gait dysfunction Plan: The patient was seen and evaluated by Dr. Zhang. Sputum is positive for MRSA and initiated on vancomycin. No further blood-tinged sputum. No hemoptysis. Xarelto at 15 mg at bedtime. We will continue to follow and make further recommendations based on her clinical status. I, the cosigning physician, performed a history & [facility] Lungs sounds with bilateral scattered rhonchi and wheezing. Maintaining good O2 saturations in the 90s on 3 L/m per nasal cannula. I discussed the assessment and plan of care with my nurse practitioner, Ambika Gonzalez. I attest to the above note as dictated by her.
[2019-05-15 17:02] LABS: Glucose,Whole Blood 140 mg/dL (75-99)
[2019-05-15] MEDS: SODIUM CHLORIDE 0.9% 1,000 ML IV SCH (17:55)
[2019-05-15 20:41] LABS: Glucose,Whole Blood 290 mg/dL (75-99)
--- NOTE | 2019-05-15 21:53 | P.PN ---
Subjective Progress Note Date: 05/15/19 Principal diagnosis: paroxysmal atrial fibrillation with RVR acute asthma exacerbation This is a pleasant 68-year-old patient of Dr. Mccoy. Resident of [facility] off [address] . Has a legal guardian. Chronic stable medical conditions include CHF EF 50-60%, hypertension, hyperlipidemia, obstructive sleep apnea uses CPAP, chronic kidney disease stage III, anemia of kidney disease. Patient has got cognitive impairment and that the best of historians. Patient presented with shortness of breath some slight cough no fever and chills reported. Also had atrial fibrillation with a rapid ventricular rate. Was put on IV Cardizem drip. Patient has significant cognitive impairment. Doesn't give much insight and and answers questions randomly. Home uses a wheelchair and a walker. Denies any chest pain. Admitted with atrial fibrillation with rapid ventricular rate, asthma exacerbation. Responded well to bronchodilator steroids. Started on Xarelto. INVESTIGATIONS, reviewed in the clinical context: White count 14.6 hemoglobin 9.9 bun 50 creatinine 1.28 Previous testing White count 4.5 hemoglobin 10.2 platelets 212 potassium 4.2 bun 30 creatinine 1.2 Labs from June 2018 show bun of 51 creatinine of 2.16 EKG tracing personally reviewed by cheSVT versus atrial fibrillation with a rapid ventricular rate Chest x-ray film personally reviewed by pr-cardiomegaly, lung bob clear 05/14/2019 Patient is currently lying in the bed comfortably. Patient is hard of hearing. Currently on 2 L oxygen via nasal cannula. Still having expiratory wheezing a scattered rhonchi on lung examination. Patient is being continued on IV Solu- Medrol and duo nebs. Heart rate is controlled. Patient is on anticoagulation with xarelto for atrial fibrillation paroxysmal. no further episodes of blood tinged sputum. Laboratory data reviewed. creatinine level improved to 1.28 05/15/2019 Patient is currentlylying in the bed comfortably. Breathing status is improving. Sputum cultures grew MRSA. Patient was started on vancomycin. Continued on oxygen therapy. Patient is being continued on IV steroids and DuoNeb's. currently heart rate is controlled on anticoagulation with xarelto. Pulmonary is following. Active Medications Hydrocodone Bitart/Acetaminophen (Bern 5-325) 2 each PO BID [facility] Last Admin: 05/14/19 21:28 Dose: 2 each Documented by: Al Hydroxide/Mg Hydroxide (Maalox) 10 ml PO Q4H PRN PRN Reason: Indigestion Last Admin: 05/14/19 08:57 Dose: 10 ml Documented by: Albuterol Sulfate (Ventolin Nebulized) 2.5 mg INHALATION RT-QID [facility] Last Admin: 05/14/19 21:24 Dose: 2.5 mg Documented by: Atorvastatin Calcium (Lipitor) 40 mg PO HS [facility] Last Admin: 05/14/19 21:29 Dose: 40 mg Documented by: Azithromycin (Zithromax) 500 mg PO DAILY [facility] Last Admin: 05/14/19 08:52 Dose: 500 mg Documented by: Benzocaine/Menthol (Cepacol Lozenge) 1 each MUCOUS MEM Q4HR PRN PRN Reason: Cough Last Admin: 05/13/19 23:11 Dose: 1 each Documented by: Budesonide (Pulmicort) 1 mg INHALATION RT-BID [facility] Last Admin: 05/14/19 21:24 Dose: 1 mg Documented by: Cinacalcet (Sensipar) 30 mg PO DAILY [facility] Last Admin: 05/14/19 08:51 Dose: 30 mg Documented by: Diltiazem HCl (Cardizem Cd) 240 mg PO DAILY [facility] Last Admin: 05/14/19 08:52 Dose: 240 mg Documented by: Famotidine (Pepcid) 20 mg PO DAILY@0800 [facility] Last Admin: 05/14/19 08:52 Dose: 20 mg Documented by: Formoterol Fumarate (Perforomist) 20 mcg INHALATION RT-BID [facility] Last Admin: 05/14/19 21:24 Dose: 20 mcg Documented by: Sodium Chloride (Saline 0.9%) 1,000 mls @ 10 mls/hr IV .Q24H [facility] Last Admin: 05/14/19 21:37 Dose: Not Given Documented by: Insulin Aspart (Novolog) 0 unit SQ ACHS [facility]; Protocol Last Admin: 05/14/19 21:29 Dose: 4 unit Documented by: Lorazepam (Ativan) 0.5 mg PO BID [facility] Last Admin: 05/14/19 21:29 Dose: 0.5 mg Documented by: Losartan Potassium (Cozaar) 25 mg PO DAILY [facility] Last Admin: 05/14/19 21:30 Dose: 25 mg Documented by: Magnesium Hydroxide (Milk Of Magnesia) 2,400 mg PO DAILY PRN PRN Reason: Constipation Methylprednisolone Sodium Succinate (Solu-Medrol) 40 mg IV Q6HR [facility] Last Admin: 05/14/19 21:27 Dose: 40 mg Documented by: Morphine Sulfate (Morphine Sulfate (Inj)) 4 mg IV Q4HR PRN PRN Reason: Chest Pain Nitroglycerin (Nitrostat) 0.4 mg SUBLINGUAL Q5M PRN PRN Reason: Chest Pain Polyethylene Glycol (Miralax) 17 gm PO HS [facility] Last Admin: 05/14/19 21:29 Dose: 17 gm Documented by: Rivaroxaban (Xarelto) 15 mg PO HS [facility] Last Admin: 05/14/19 21:29 Dose: 15 mg Documented by: Senna/Docusate Sodium (Senokot-S) 1 each PO BID [facility] Last Admin: 05/14/19 21:29 Dose: 1 each Documented by: Sertraline HCl (Zoloft) 150 mg PO DAILY [facility] Last Admin: 05/14/19 08:52 Dose: 150 mg Documented by: Sodium Chloride (Saline Flush) 10 ml IV BID [facility] Last Admin: 05/14/19 21:37 Dose: 10 ml Documented by: Objective - Vital Signs Vital signs: Vital Signs Temp 97.5 F L 05/15/19 08:00 Pulse 76 05/15/19 12:35 Resp 16 05/15/19 12:00 BP 152/67 05/15/19 12:00 Pulse Ox 96 05/15/19 12:00 Intake & Output 05/14/19 05/15/19 05/15/19 18:59 06:59 18:59 Intake Total 680 Output Total 800 Balance -120 Weight 73.5 kg Intake: Oral 680 Output: Urine 800 Other: Voiding Method Bedpan Bedpan # Voids 2 1 - Exam PHYSICAL EXAMINATION: Patient is lying in the bed comfortably, no acute distress, awake alert and oriented.hard of hearing. HEENT: Normocephalic. Neck is supple. Pupils reactive. Nostrils clear. Oral ca vity is moist. Ears reveal no drainage. Neck reveals no JVD, carotid bruits, or thyromegaly. CHEST EXAMINATION: Trachea is central. Symmetrical expansion. bilateral expiratory wheezing and scattered rhonchi. Nonlabored breathing. CARDIAC: Normal S1, S2 with no gallops. No murmurs . irregular rhythm ABDOMEN: Soft. Bowel sounds normal. No organomegaly. No abdominal bruits. Extremities: reveal no edema. No clubbing or cyanosis Neurologically awake, alert, oriented x3 with well-coordinated movements. No focal deficits noted Skin: No rash or skin lesions. Psychiatric: Coperative. Nonsuicidal Musculoskeletal: No joint swelling or deformity. Normal range of motion. - Labs CBC & Chem 7: 05/15/19 05:35 05/15/19 05:35 Labs: Abnormal Lab Results - Last 24 Hours (Table) 05/14/19 05/14/19 05/15/19 Range/Units 16:42 19:58 05:35 WBC (3.8-10.6) k/uL RBC (3.80-5.40) m/uL Hgb (11.4-16.0) gm/dL Hct (34.0-46.0) % Neutrophils # (1.3-7.7) k/uL Lymphocytes # (1.0-4.8) k/uL Sodium 136 L (137-145) mmol/L BUN 50 H (7-17) mg/dL Creatinine 1.35 H (0.52-1.04) mg/dL Glucose 208 H (74-99) mg/dL POC Glucose (mg/dL) 144 H 252 H (75-99) mg/dL Calcium 7.2 L (8.4-10.2) mg/dL 05/15/19 05/15/19 05/15/19 Range/Units 05:35 06:04 12:15 WBC 11.0 H (3.8-10.6) k/uL RBC 3.18 L (3.80-5.40) m/uL Hgb 8.7 L (11.4-16.0) gm/dL Hct 28.0 L (34.0-46.0) % Neutrophils # 9.9 H (1.3-7.7) k/uL Lymphocytes # 0.6 L (1.0-4.8) k/uL Sodium (137-145) mmol/L BUN (7-17) mg/dL Creatinine (0.52-1.04) mg/dL Glucose (74-99) mg/dL POC Glucose (mg/dL) 229 H 244 H (75-99) mg/dL Calcium (8.4-10.2) mg/dL Microbiology - Last 24 Hours (Table) 05/13/19 09:06 Gram Stain - Final Sputum Sputum Culture - Final Methicillin resist S. aureus 05/10/19 20:19 Blood Culture - Preliminary Blood No Growth after 96 hours Assessment and Plan Assessment: -Paroxysmal atrial fibrillation with rapid ventricular rate, likely contributing to patient's shortness of breath and what to reverted to sinus rhythm -back to increased heart rate POA -Intermittent asthma with acute exacerbation, slowly improving, POA -chronic hypoxic respiratory failure on home oxygen -Blood-tinged sputum on Xarelto-watch closely -Chronic medical debility uses a walker/recheck -Normocytic anemia of chronic kidney disease given -chronic congestive heart failure from diastolic dysfunction EF 50-60% -Essential hypertension -Hyperlipidemia -Obstructive sleep apnea uses a CPAP -Chronic kidney disease stage III from nephrosclerosis -Severe 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 Plan: Continue with bronchodilators, Zithromax, IV Solu-Medrol. patient is being continued on xarelto 15 mg at bedtime. Pulmonary and cardiology is following. Time with Patient: Greater than 30
[2019-05-15] MEDS: RIVAROXABAN 15 MG TAB PO SCH (22:53)
[2019-05-15] MEDS: POLYETHYLENE GLYCOL 3350 17 GM POWD.PACK PO SCH (22:54)
[2019-05-15] MEDS: ATORVASTATIN 40 MG TAB PO SCH (22:54)
[2019-05-16] MEDS: HYDROcodone/APAP 5-325MG 1 EACH TAB PO SCH ×3 (00:44→19:57)
[2019-05-16] MEDS: methylPREDNISolone SOD SUCCI 40 MG/ML 1 ML VIAL IV SCH ×5 (00:48→23:40)
[2019-05-16 06:13] LABS: Glucose,Whole Blood 200 mg/dL (75-99)
[2019-05-16 06:25] LABS: Basophils % (A) 0 %; Eosinophils % (A) 0 %; HCT 29.5 % (34.0-46.0); HGB 9.2 gm/dL (11.4-16.0); Lymphocytes # (A) 0.6 k/uL (1.0-4.8); Lymphocytes % (A) 5 %; MCH 27.6 pg (25.0-35.0); MCHC 31.2 g/dL (31.0-37.0); MCV 88.3 fL (80.0-100.0); Monocytes # (A) 0.6 k/uL (0-1.0); Monocytes % (A) 5 %; Neutrophils % (A) 89 %; Platelet Count 238 k/uL (150-450); RBC 3.34 m/uL (3.80-5.40); RDW 14.6 % (11.5-15.5); WBC 12.4 k/uL (3.8-10.6)
[2019-05-16 06:40] LABS: Calcium 7.3 mg/dL (8.4-10.2); Potassium 4.8 mmol/L (3.5-5.1)
[2019-05-16] MEDS: INSULIN ASPART (NovoLOG) 100 UNIT/ML VIAL SQ SCH ×4 (06:58→19:57)
[2019-05-16] MEDS: BUDESONIDE 1 MG/2 ML NEBU INHALATION SCH ×2 (07:14→20:05)
[2019-05-16] MEDS: FORMOTEROL FUMARATE 20 MCG/2 ML NEBU INHALATION SCH ×2 (07:14→20:06)
[2019-05-16] MEDS: ALBUTEROL NEBULIZED 2.5 MG/3 ML INHALATION SCH ×2 (07:14→10:55)
[2019-05-16] MEDS: FAMOTIDINE 20 MG TAB PO SCH (09:06)
[2019-05-16] MEDS: AZITHROMYCIN 500 MG TAB PO SCH (09:06)
[2019-05-16] MEDS: LORazepam 0.5 MG TAB PO SCH ×2 (09:06→19:57)
[2019-05-16] MEDS: DILTIAZEM CD 240 MG CAP.ER.24H PO SCH (09:06)
[2019-05-16] MEDS: LOSARTAN 25 MG TAB PO SCH (09:06)
[2019-05-16] MEDS: CINACALCET 30 MG TAB PO SCH (09:06)
[2019-05-16] MEDS: SENNOSIDES-DOCUSATE SODIUM 1 EACH TAB PO SCH ×2 (09:06→19:57)
[2019-05-16] MEDS: VANCOMYCIN 1,500 MG in SODIUM CHLORIDE 0.9% 250 ML IVPB SCH (09:07)
[2019-05-16] MEDS: SERTRALINE 100 MG TAB PO SCH (09:07)
[2019-05-16] MEDS: MAG HYDROX/AL HYDROX/SIMETH 30 ML CUP PO PRN (10:36)
[2019-05-16] MEDS ORDERED: IPRATROPIUM-ALBUTEROL 3 ML NEB INHALATION PRN (11:52)
[2019-05-16 12:16] LABS: Glucose,Whole Blood 226 mg/dL (75-99)
--- NOTE | 2019-05-16 13:51 | P.PN ---
Subjective Progress Note Date: 05/16/19 Principal diagnosis: Aileen ventilation with RVR, acute exacerbation of mild persistent chronic bronchial asthma 68-year-old white female patient of Dr. Mccoy, a resident of the [facility], with past medical history of hypertension, chronic kidney disease stage III, chronic anemia, obstructive sleep apnea on CPAP, paroxysmal atrial fibrillation, type 2 diabetes mellitus without complications, it bronchial asthma, unspecified, GERD/reflux, chronic congestive heart failure, hyperlipidemia, major depressive disorder, vascular dementia and questionable history of tuberculosis in childhood, who was brought into the emergency department on 2019 evaluation of tachycardia, difficulty breathing with wheezing complaints of palpitations. Patient had a recent upper respiratory infection. Her symptoms were also associated with chest discomfort, pain with inspiration, fever and cough. EKG showed atrial fibrillation with rapid ventricular response with a rate of 151, patient was started on Cardizem drip for rate control, chest x-ray was completed showing no active cardiopulmonary disease. Right hip and pelvis x-ray was completed showing advanced arthritic changes in the right hip joint with superior migration of the femoral head which progressed since prior computed tomography scan, and possibility of septic arthritis was not excluded, but no acute fractures were seen. Patient has been afebrile while in the hospital, no evidence of leukocytosis, blood cell count is 4.5, immobile globin is 10.2, correlation profile was within normal limits, electrolytes were unremarkable, B1 is 30 creatinine is 1.2, troponins were 0.012, and 0.014, proBNP was 3430, lactic acid was normal at 1.6. This morning she remains on Cardizem drip at 5 mg per hour, she is in sinus rhythm with a controlled rate, her breathing is comfortable, she was on CPAP overnight with a pressure of 15 cm of water, she has been placed back on nasal cannula, and she denies difficulty breathing. Patient is on Xarelto. for history of paroxysmal atrial fibrillation Patient is a lifetime nonsmoker. She denies ever seeing a immunology specialist, and she is not on any maintenance inhalers for breathing treatments. On 05/12/2019 patient seen in follow-up on selective care unit, she is awake and alert, she is on 2 L of oxygen and the pulse ox of 98%, afebrile, hemodyn amically stable, patient sounds more congested and wheezy and today's exam, IV Solu-Medrol has been added and patient is currently receiving 40 mg every 8 hours. She remains in sinus rhythm, with a controlled rate, no complaints of chest pain, at times patient is bringing up some brown colored sputum. On 05/13/2019 patient seen in follow-up on selective care unit, still wheezy and congested, and she has been bringing up some mucus tinged with blood. Patient remains on 2 L of oxygen and the pulse ox of 98-99%, afebrile, hemodynamically stable, heart rate, remains in A. fib flutter with a rate of 87, she remains on the Route toe, and Cardizem CD 240 mg daily. She was started on oral Zithromax, she remains on IV steroids which we increased yesterday in view of increased bronchospastic state yesterday The patient was seen today 05/14/2019 in follow-up on the selective care unit. She is currently sitting up at the bedside. Awake and alert in no acute distress. Maintaining O2 saturations up to 100% on 2 L/m per nasal cannula. She's afebrile. Hemodynamically stable. Blood culture reveals no growth. Sputum culture reveals no growth to date. Sodium 138. Potassium 4.2. Creatini ne 1.28. She is continued on bronchodilators, IV Solu-Medrol. Anticoagulated with Xarelto. The patient is seen today 05/15/2019 in follow-up on selective care unit. She is currently resting comfortably in bed. Awake and alert in no acute distress. Maintaining O2 saturations up to 100% on 3 L/m per nasal cannula. She's afebrile. Hemodynamically stable. Sputum culture is positive for MRSA. Vancomycin has been initiated. White count 11.0. Hemoglobin 8.7. Sodium 136. Potassium 4.8. Creatinine 1.35. She remains on bronchodilators and IV Solu- Medrol. The patient is seen today 05/16/2019 in follow-up on the selective care unit. She is currently resting comfortably in bed. Awake and alert in no acute distress. She is maintaining O2 saturations up to 100% on 3 L/m per nasal marbella alexis. She's afebrile. Hemodynamically stable. Sputum was positive for MRSA. She remains on vancomycin. She remains on DuoNeb inhalations, Pulmicort and Perforomist inhalations, IV Solu-Medrol. Objective - Vital Signs Vital signs: Vital Signs Temp 97.9 F 05/16/19 08:00 Pulse 86 05/16/19 11:09 Resp 16 05/16/19 12:00 BP 127/72 05/16/19 08:00 Pulse Ox 100 05/16/19 08:00 Intake & Output 05/15/19 05/16/19 05/16/19 18:59 06:59 18:59 Intake Total 622 222 0 Output Total 675 1400 Balance -53 -1178 0 Weight 77 kg Intake: Oral 622 222 0 Output: Urine 675 1400 Other: Voiding Method Bedpan Bedpan Bedpan # Voids 3 1 1 # Bowel Movements 1 - Exam GENERAL EXAM: Alert, pleasant, 68-year-old female patient, very hard of hearing, in no acute distress, 3 L per nasal cannula and saturations up to 100%. Comfortable in no apparent distress. HEAD: Normocephalic/atraumatic. EYES: Normal reaction of pupils, equal size. Conjunctiva pink, sclera white. NOSE: Clear with pink turbinates. THROAT: No erythema or exudates. NECK: No masses, no JVD, no thyroid enlargement, no adenopathy. CHEST: No chest wall deformity. Symmetrical expansion. LUNGS: Equal air entry with scattered wheezing bilaterally, congested cough with occasional production of thick brownish yellow sputum CVS: Irregular rate and rhythm, normal S1 and S2, no gallops, no murmurs, no rubs ABDOMEN: Soft, nontender. No hepatosplenomegaly, normal bowel sounds, no guarding or rigidity. EXTREMITIES: No clubbing, no edema, no cyanosis, 2+ pulses and upper and lower extremities. MUSCULOSKELETAL: Muscle strength and tone normal. SPINE: No scoliosis or deformity SKIN: No rashes CENTRAL NERVOUS SYSTEM: No focal deficits, tone is normal in all 4 extremities. PSYCHIATRIC: Alert and oriented -3. Appropriate affect. Intact judgment and insight. - Labs CBC & Chem 7: 05/16/19 05:31 05/16/19 05:31 Labs: Abnormal Lab Results - Last 24 Hours (Table) 05/15/19 05/15/19 05/16/19 Range/Units 16:59 20:40 05:31 WBC 12.4 H (3.8-10.6) k/uL RBC 3.34 L (3.80-5.40) m/uL Hgb 9.2 L (11.4-16.0) gm/dL Hct 29.5 L (34.0-46.0) % Neutrophils # 11.0 H (1.3-7.7) k/uL Lymphocytes # 0.6 L (1.0-4.8) k/uL Sodium (137-145) mmol/L BUN (7-17) mg/dL Creatinine (0.52-1.04) mg/dL Glucose (74-99) mg/dL POC Glucose (mg/dL) 140 H 290 H (75-99) mg/dL Calcium (8.4-10.2) mg/dL 05/16/19 05/16/19 05/16/19 Range/Units 05:31 06:09 12:13 WBC (3.8-10.6) k/uL RBC (3.80-5.40) m/uL Hgb (11.4-16.0) gm/dL Hct (34.0-46.0) % Neutrophils # (1.3-7.7) k/uL Lymphocytes # (1.0-4.8) k/uL Sodium 135 L (137-145) mmol/L BUN 50 H (7-17) mg/dL Creatinine 1.28 H (0.52-1.04) mg/dL Glucose 178 H (74-99) mg/dL POC Glucose (mg/dL) 200 H 226 H (75-99) mg/dL Calcium 7.3 L (8.4-10.2) mg/dL Microbiology - Last 24 Hours (Table) 05/10/19 20:19 Blood Culture - Preliminary Blood No Growth after 120 hours 05/13/19 09:06 Gram Stain - Final Sputum Sputum Culture - Final Methicillin resist S. aureus Assessment and Plan Assessment: #1. Acute on chronic hypoxic respiratory failure secondary to A. fib with RVR, mild exacerbation of chronic bronchial asthma, and MRSA positive sputum #2. Recent upper respiratory infection #3. Chronic bronchial asthma, unspecified #4. Chronic hypoxic respiratory failure likely related to chronic CHF, and patient relates that she wears 2-3 L of oxygen on a regular basis #5. Obstructive sleep apnea on CPAP therapy with a pressure of 15 cm of water #6. Paroxysmal atrial fibrillation on Xarelto, remains in A. fib flutter with a controlled rate #7. Kidney disease stage III #8. Chronic congestive heart failure with preserved left ventricular systolic function #9. Essential hypertension #10. Type 2 diabetes mellitus without complications #11. Hyperlipidemia #12. Generalized anxiety disorder #13. Major depressive disorder #14. GERD/reflux #15. Hypercalcemia maintained on Sensipar, nightly serum calcium is 7.7 #16. History of MRSA infection in the abdominal wound following debridement of the left abdominal wall seroma #17. Chronic syndrome #8. Generalized medical debility and gait dysfunction Plan: The patient was seen and evaluated by Dr. Rubalcava. She is stable from the pulmonary standpoint. We'll continue the current treatment plan. Discontinue azithromycin. Sputum is positive for MRSA and initiated on vancomycin. Xarelto at 15 mg at bedtime. We will continue to follow and make further recommendations based on her clinical status. I, the cosigning physician, performed a history & physical examination of the patient. Lungs sounds with bilateral scattered rhonchi and wheezing. Maintaining good O2 saturations in the 90s on 3 L/m per nasal cannula. I discu ssed the assessment and plan of care with my nurse practitioner, Ambika Gonzalez. I attest to the above note as dictated by her.
[2019-05-16] MEDS: IPRATROPIUM-ALBUTEROL 3 ML NEB INHALATION SCH ×3 (13:56→20:05)
--- NOTE | 2019-05-16 14:55 | P.PN ---
Subjective Progress Note Date: 05/16/19 This is a 68-year-old female most of the history was obtained from the medical record as the patient is quite groggy this morning, and does have underlying dementia. She has a past medical history significant for paroxysmal atrial fibrillation, hyperlipidemia, asthma, COPD, chronic anemia, diabetes, hypertension, sleep apnea, morbid obesity, apparently was brought to the hospital because of the symptoms of shortness of breath. A cardiology consultation was requested because of atrial fibrillation. Her EKG on presentation here showed atrial fibrillation with a rapid ventricular response. Chest x-ray did not reveal any active cardiopulmonary disease. Patient was complaining apparently in the emergency room of some discomfort in her pelvic area, an x-ray of the right hip and pelvis was performed which revealed advanced arthritic changes in the right hip joint with superior migration of the femoral head that is progressed as compared with old CAT scan. Blood pressure on arrival here 117/97 with a heart rate of 140, 100% on BiPAP. Laboratory data was reviewed, white blood cell count 4.5, hemoglobin 10.2, platelet count 212. Sodium 137, potassium 4.2, BUN 30, creatinine 1.2, magnesium 1.8, troponin 0.012, 0.014. BNP level 3430. Cholesterol 219, LDL 161, HDL 37, cholesterol 13. At the time of my examination this morning, patient is quite groggy, does feel that she is short of breath. 05/12/2019 Patient was seen and examined today, appears to be congested. Continues to be in atrial fibrillation, her heart rate for most of the day in the 1 teens, at the time of my examination at been to the 04/05/1929 range. We will add IV amiodarone to her medication regime. 116/50. 05/16/2019 Patient seen and examined this morning, heart rate remains under adequate contro l. Hemodynamically stable. We will follow this patient along with you now on an as-needed basis only, please don't hesitate to call with any questions. Objective - Vital Signs Vital signs: Vital Signs Temp 97.9 F 05/16/19 08:00 Pulse 86 05/16/19 11:09 Resp 16 05/16/19 12:00 BP 127/72 05/16/19 08:00 Pulse Ox 100 05/16/19 08:00 Intake & Output 0305/16/19 05/16/19 18:59 06:59 18:59 Intake Total 622 222 120 Output Total 675 1400 200 Balance -53 -1178 -80 Weight 77 kg Intake: Oral 622 222 120 Output: Urine 675 1400 200 Other: Voiding Method Bedpan Bedpan Bedpan # Voids 3 1 1 # Bowel Movements 1 - Exam PHYSICAL EXAMINATION: HEENT: Head is atraumatic, normocephalic. Pupils equal, round. Neck is supple. There is no elevated jugular venous pressure. HEART EXAMINATION: S1 and S2 irregular irregular, systolic murmur heard CHEST EXAMINATION: Lungs reveal diminished air entry to bilateral bases, scatter ed wheezing throughout ABDOMEN: Abdomen is morbidly obese, no tenderness noted. Abdominal apron is reaching to the patient's upper thighs. She also has a large incisional hernia unchanged from prior.. EXTREMITIES: 1+ peripheral pulses with trace evidence of peripheral edema and no calf tenderness noted. NEUROLOGIC patient is groggy, confused. - Labs CBC & Chem 7: 05/16/19 05:31 05/16/19 05:31 Labs: Abnormal Lab Results - Last 24 Hours (Table) 05/15/19 05/15/19 05/16/19 Range/Units 16:59 20:40 05:31 WBC 12.4 H (3.8-10.6) k/uL RBC 3.34 L (3.80-5.40) m/uL Hgb 9.2 L (11.4-16.0) gm/dL Hct 29.5 L (34.0-46.0) % Neutrophils # 11.0 H (1.3-7.7) k/uL Lymphocytes # 0.6 L (1.0-4.8) k/uL Sodium (137-145) mmol/L BUN (7-17) mg/dL Creatinine (0.52-1.04) mg/dL Glucose (74-99) mg/dL POC Glucose (mg/dL) 140 H 290 H (75-99) mg/dL Calcium (8.4-10.2) mg/dL 05/16/19 05/16/19 05/16/19 Range/Units 05:31 06:09 12:13 WBC (3.8-10.6) k/uL RBC (3.80-5.40) m/uL Hgb (11.4-16.0) gm/dL Hct (34.0-46.0) % Neutrophils # (1.3-7.7) k/uL Lymphocytes # (1.0-4.8) k/uL Sodium 135 L (137-145) mmol/L BUN 50 H (7-17) mg/dL Creatinine 1.28 H (0.52-1.04) mg/dL Glucose 178 H (74-99) mg/dL POC Glucose (mg/dL) 200 H 226 H (75-99) mg/dL Calcium 7.3 L (8.4-10.2) mg/dL Microbiology - Last 24 Hours (Table) 05/10/19 20:19 Blood Culture - Preliminary Blood No Growth after 120 hours 05/13/19 09:06 Gram Stain - Final Sputum Sputum Culture - Final Methicillin resist S. aureus Assessment and Plan Plan: Assessment and plan #1 atrial fibrillation with rapid ventricular response #2 morbid obesity #3 asthma #4 COPD #5 diabetes #6 hyperlipidemia #7 hypertension #8 sleep apnea #9 dementia Plan Echocardiogram with Doppler study revealed an ejection of 50-55%. Continue current medications. We will follow this patient along with you now on an as- needed basis only, please don't hesitate to call with any questions. DNP note has been reviewed, I agree with a documented findings and plan of care. Patient was seen and examined.
[2019-05-16 16:45] LABS: Glucose,Whole Blood 151 mg/dL (75-99)
[2019-05-16 19:44] LABS: Glucose,Whole Blood 216 mg/dL (75-99)
[2019-05-16] MEDS: ATORVASTATIN 40 MG TAB PO SCH (19:57)
[2019-05-16] MEDS: POLYETHYLENE GLYCOL 3350 17 GM POWD.PACK PO SCH (19:57)
[2019-05-16] MEDS: SODIUM CHLORIDE 0.9% 1,000 ML IV SCH (19:57)
[2019-05-16] MEDS: RIVAROXABAN 15 MG TAB PO SCH (20:51)
--- NOTE | 2019-05-16 23:59 | P.CONS ---
History of Present Illness - Reason for Consult Consult date: 05/16/19 + sputum MRSA Requesting physician: Alaina Murphy - Chief Complaint shortness of breath and cough x days - History of Present Illness Patient is a 76-year-old female with a past medical history significant for bronchial asthma CHF chronic renal insufficiency presenting to the ER at [facility] on May 10, 2019 with a chief complaints of increasing shortness of breath patient symptom has been going on for a few days before she presented to the hospital patient also have a cough which has been moderate intensity and bringing up some sputum occasionally yellow no hemoptysis no chest pain no nausea no vomiting no choking on food no abdominal pain no diarrhea on presentation to the hospital patient has been afebrile and the patient did have a normal white count of 4.5 subsequently did have a slight jump in the white count which is showing a downward trend patient did have a chest x-ray on presentation to the hospital which was negative for any acute cardiopulmonary process chest x-ray repeated on 228 did shows mild cardiomegaly suspect underlying pulmonary arterial hypertension no pulmonary edema patient did have a sputum cultures obtained which are now showing MRSA patient has been started on vancomycin infectious disease was consulted for further recommendation about antibiotic therapy. Review of Systems Positive point has been mentioned in HPI rest of the systems are negative Past Medical History Past Medical History: Atrial Fibrillation, Asthma, Heart Failure, COPD, Dementia, Diabetes Mellitus, Hyperlipidemia, Hypertension, Renal Disease, Sleep Apnea/CPAP/BIPAP Additional Past Medical History / Comment(s): Morbid obesity, obstructive sleep apnea maintained on CPAP , uti, anemia, kidney cyst History of Any Multi-Drug Resistant Organisms: MRSA Year Discovered:: 12/15/16 MDRO Source:: abdomen Past Surgical History: Breast Surgery, Hernia Repair Additional Past Surgical History / Comment(s): cataracts, panniculectomy and I&D of abdominal mass Past Anesthesia/Blood Transfusion Reactions: No Reported Reaction Past Psychological History: Anxiety Smoking Status: Never smoker Past Alcohol Use History: None Reported Past Drug Use History: None Reported - Past Family History Mother Family Medical History: CVA/TIA Father Additional Family Medical History / Comment(s): WAS INJURED IN [place], also had hx tb but from complications of his injuries Brother(s) Additional Family Medical History / Comment(s): at age 2 years 10months tb Medications and Allergies Home Medications Medication Instructions Recorded Confirmed Type Magnesium Hydroxide [Milk of 2,400 mg PO DAILY PRN 10/19/16 05/10/19 History Magnesia] Diltiazem Cd [Cardizem CD] 120 mg PO HS 10/22/16 05/10/19 History Cinacalcet [Sensipar] 30 mg PO DAILY 09/18/17 05/10/19 History Rivaroxaban [Xarelto] 15 mg PO HS 09/18/17 05/10/19 History Sennosides-Docusate Sodium 1 tab PO BID 09/18/17 05/10/19 History [Senokot-S] HYDROcodone/APAP 5-325MG [[place] 2 tab PO BID 03/23/18 05/10/19 History 5-325] Famotidine [Pepcid] 20 mg PO DAILY@0800 05/10/19 05/10/19 History LORazepam [Ativan] 0.5 mg PO BID 05/10/19 05/10/19 History Mag Hydrox/Aluminum Hyd/Simeth 10 ml PO Q4H PRN 05/10/19 05/10/19 History [Mylanta Maximum Strength Liq] Polyethylene Glycol 3350 [Miralax] 17 gm PO HS 05/10/19 05/10/19 History Sertraline [Zoloft] 150 mg PO DAILY 05/10/19 05/10/19 History Allergies Allergy/AdvReac Type Severity Reaction Status Date / Time adhesive Allergy Rash/Hives Verified 05/10/19 20:45 codeine Allergy Rash/Hives Verified 05/10/19 20:45 Physical Exam Vitals: Vital Signs Temp Pulse Pulse Resp BP Pulse Ox 05/16/19 16:00 87 16 133/77 99 05/16/19 15:37 80 05/16/19 15:23 78 05/16/19 12:00 80 16 119/59 96 05/16/19 11:09 86 05/16/19 10:57 82 05/16/19 08:00 97.9 F 53 L 16 127/72 100 05/16/19 07:40 80 05/16/19 07:33 80 05/16/19 07:32 80 05/16/19 07:17 76 05/16/19 04:00 70 18 05/16/19 00:00 99.2 F 70 18 145/58 100 05/15/19 21:15 84 05/15/19 21:02 80 05/15/19 21:01 80 05/15/19 20:49 80 05/15/19 20:00 99.5 F 66 18 135/59 99 Intake and Output 05/16/19 05/16/19 05/16/19 06:59 14:59 22:59 Intake Total 120 Output Total 1400 200 300 Balance -1400 -80 -300 Intake: Oral 120 Output: Urine 1400 200 300 Other: Voiding Method Bedpan Bedpan Bedpan # Voids 1 1 # Bowel Movements 1 Weight 77 kg GENERAL DESCRIPTION: Elderly female lying in bed, no distress. No tachypnea or accessory muscle of respiration use. HEENT: Shows Pallor , no scleral icterus. Oral mucous membrane is dry. NECK: Trachea central, no thyromegaly. LUNGS: Unlabored breathing. Decreased intensity of breath sounds with occasional wheeze HEART: S1, S2, regular rate and rhythm. ABDOMEN: Soft, no tenderness , guarding or rigidity EXTREMITIES: No edema of feet. SKIN: No rash, no masses palpable. NEUROLOGICAL: The patient is awake, alert, oriented x3, mood and affect normal. Results CBC & Chem 7: 05/16/19 05:31 05/16/19 05:31 Labs: Abnormal Lab Results - Last 24 Hours (Table) 05/15/19 05/15/19 05/16/19 Range/Units 16:59 20:40 05:31 WBC 12.4 H (3.8-10.6) k/uL RBC 3.34 L (3.80-5.40) m/uL Hgb 9.2 L (11.4-16.0) gm/dL Hct 29.5 L (34.0-46.0) % Neutrophils # 11.0 H (1.3-7.7) k/uL Lymphocytes # 0.6 L (1.0-4.8) k/uL Sodium (137-145) mmol/L BUN (7-17) mg/dL Creatinine (0.52-1.04) mg/dL Glucose (74-99) mg/dL POC Glucose (mg/dL) 140 H 290 H (75-99) mg/dL Calcium (8.4-10.2) mg/dL 05/16/19 05/16/1905/15/20 Range/Units 05:31 06:09 12:13 WBC (3.8-10.6) k/uL RBC (3.80-5.40) m/uL Hgb (11.4-16.0) gm/dL Hct (34.0-46.0) % Neutrophils # (1.3-7.7) k/uL Lymphocytes # (1.0-4.8) k/uL Sodium 135 L (137-145) mmol/L BUN 50 H (7-17) mg/dL Creatinine 1.28 H (0.52-1.04) mg/dL Glucose 178 H (74-99) mg/dL POC Glucose (mg/dL) 200 H 226 H (75-99) mg/dL Calcium 7.3 L (8.4-10.2) mg/dL 05/16/19 Range/Units 16:33 WBC (3.8-10.6) k/uL RBC (3.80-5.40) m/uL Hgb (11.4-16.0) gm/dL Hct (34.0-46.0) % Neutrophils # (1.3-7.7) k/uL Lymphocytes # (1.0-4.8) k/uL Sodium (137-145) mmol/L BUN (7-17) mg/dL Creatinine (0.52-1.04) mg/dL Glucose (74-99) mg/dL POC Glucose (mg/dL) 151 H (75-99) mg/dL Calcium (8.4-10.2) mg/dL Microbiology - Last 24 Hours (Table) 05/10/19 20:19 Blood Culture - Preliminary Blood No Growth after 120 hours Assessment and Plan Assessment: patient presenting to the hospital with increasing shortness of breath and cough in this patient who did have underlying bronchial asthma possibly representing asthma exacerbation with a component of tracheobronchitis clinically patient not behaving as pneumonia in this patient with no fever or elevated white count but cannot be done excluded sputum now positive for MRSA (1) Tracheobronchitis Current Visit: Yes Status: Acute Code(s): J40 - BRONCHITIS, NOT SPECIFIED ACUTE OR CHRONIC SNOMED Code(s): 79271926 (2) MRSA (methicillin resistant staph aureus) culture positive Current Visit: Yes Status: Acute Code(s): Z22.322 - CARRIER OR SUSPECTED CARRIER OF METHICILLIN RESIS STAPH SNOMED Code(s): 202404802 Plan: 1-we will repeat a chest x-ray PA and lateral to make sure no evidence of any consolidation suspicious for pneumonia 2-we will check a CRP and procalcitonin level 3-vancomycin pharmacy to dose her with a target trough of 15 while watching her kidney function and Vanco trough closely. We will follow on clinical condition and cultures to further adjust medication if needed Thank you for this consultation we will follow the patient along with you Time with Patient: Greater than 30
[2019-05-17] MEDS: methylPREDNISolone SOD SUCCI 40 MG/ML 1 ML VIAL IV SCH ×2 (05:49→12:22)
[2019-05-17 06:53] LABS: Glucose,Whole Blood 258 mg/dL (75-99)
[2019-05-17] MEDS: IPRATROPIUM-ALBUTEROL 3 ML NEB INHALATION SCH ×4 (08:12→19:48)
[2019-05-17] MEDS: BUDESONIDE 1 MG/2 ML NEBU INHALATION SCH ×2 (08:12→19:48)
[2019-05-17] MEDS: FORMOTEROL FUMARATE 20 MCG/2 ML NEBU INHALATION SCH ×2 (08:12→19:48)
[2019-05-17] MEDS: SERTRALINE 100 MG TAB PO SCH (10:41)
[2019-05-17] MEDS: HYDROcodone/APAP 5-325MG 1 EACH TAB PO SCH ×2 (10:42→20:40)
[2019-05-17] MEDS: LORazepam 0.5 MG TAB PO SCH ×2 (10:42→20:40)
[2019-05-17] MEDS: SENNOSIDES-DOCUSATE SODIUM 1 EACH TAB PO SCH ×2 (10:42→20:40)
[2019-05-17] MEDS: INSULIN ASPART (NovoLOG) 100 UNIT/ML VIAL SQ SCH ×4 (10:44→20:40)
[2019-05-17] MEDS: LOSARTAN 25 MG TAB PO SCH (10:44)
[2019-05-17] MEDS: VANCOMYCIN 1,500 MG in SODIUM CHLORIDE 0.9% 250 ML IVPB SCH ×2 (10:44→10:46)
[2019-05-17] MEDS: FAMOTIDINE 20 MG TAB PO SCH (10:44)
[2019-05-17] MEDS: DILTIAZEM CD 240 MG CAP.ER.24H PO SCH (10:49)
[2019-05-17] MEDS: CINACALCET 30 MG TAB PO SCH (10:49)
--- NOTE | 2019-05-17 11:03 | PN ---
PROGRESS NOTE DATE OF SERVICE: 05/16/2019 This 68-year-old woman was admitted with acute asthma exacerbation as well as paroxysmal atrial fibrillation being closely monitored at this time multiple including Cardiology and Neurology following the patient closely. The blood sugar is elevated. PAST MEDICAL HISTORY: Reviewed. REVIEW OF SYSTEMS: CARDIOVASCULAR SYSTEM: As mentioned earlier. GI: As mentioned earlier. : No dysuria. NERVOUS SYSTEMS: As mentioned earlier. CURRENT MEDICATIONS: Include [place], DuoNeb, Lipitor, Cepacol, Pulmicort, Sensipar, Cardizem CD, Pepcid, Perforomist, NovoLog, Ativan, Cozaar, milk of magnesia, Solu-Medrol. Additional medications: Xarelto, Zoloft, doses are reviewed. PHYSICAL EXAM: Patient is alert, oriented x3. The pulse is 80, blood pressure 151/60, respiration 18, temperature 98.8, pulse ox 98% on 2 L. HEENT: Conjunctivae normal. NECK: No jugular venous distension. CARDIOVASCULAR: S1, S2, muffled. RESPIRATION: Breath sounds diminished at the bases, bilateral scattered rhonchi, no crackles. Breathing efforts, increased. ABDOMEN: Soft, nontender. LEGS: No edema, no swelling. LABS: At this time shows Accu-Cheks 226, 151, 760. Other labs are WBC 12.4, hemoglobin 9.2, creatinine is 1.28. ASSESSMENT: 1. Paroxysmal atrial fibrillation with rapid ventricular rate. 2. Possible MRSA pneumonia. 3. Intermittent asthma with acute exacerbation with acute purulent tracheobronchitis. 4. Chronic hypoxic respiratory failure. 5. Blood-tinged sputum on Xarelto, on observation. 6. Chronic medical debility. 7. Normocytic anemia. 8. Congestive heart failure with chronic diastolic dysfunction, ejection fraction 50% to 60%. 9. Hypertension. 10.Hyperlipidemia. 11.History of sleep apnea. 12.Chronic kidney disease stage III. 13.Severe cognitive impairment with dementia. 14.NO CODE, NO CPR, NO VENT. RECOMMENDATION: Recommend to continue current management and symptomatic treatment. Otherwise, continue with the bronchodilators, steroids and empiric antibiotics in the form of vancomycin. The sputum showed MRSA. Will continue to monitor. Guarded prognosis because of multiple complex medical issues. Dr. Munoz will follow. MMODL / IJN: [id number] /
[2019-05-17 11:42] LABS: Glucose,Whole Blood 275 mg/dL (75-99)
[2019-05-17 11:50] VITALS: BMI 33.1
--- NOTE | 2019-05-17 13:19 | P.PN ---
Subjective Progress Note Date: 05/17/19 68-year-old white female patient of Dr. Mccoy, [facility], with past medical history of hypertension, chronic kidney disease stage III, chronic anemia, obstructive sleep apnea on CPAP, paroxysmal atrial fibrillation, type 2 diabetes mellitus without complications, it br onchial asthma, unspecified, GERD/reflux, chronic congestive heart failure, hyperlipidemia, major depressive disorder, vascular dementia and questionable history of tuberculosis in childhood, who was brought into the emergency department on 2019 evaluation of tachycardia, difficulty breathing with wheezing complaints of palpitations. Patient had a recent upper respiratory infection. Her symptoms were also associated with chest discomfort, pain with inspiration, fever and cough. EKG showed atrial fibrillation with rapid ventricular response with a rate of 151, patient was started on Cardizem drip for rate control, chest x-ray was completed showing no active cardiopulmonary disease. Right hip and pelvis x-ray was completed showing advanced arthritic changes in the right hip joint with superior migration of the femoral head which progressed since prior computed tomography scan, and possibility of septic arthritis was not excluded, but no acute fractures were seen. Patient has been afebrile while in the hospital, no evidence of leukocytosis, blood cell count is 4.5, immobile globin is 10.2, correlation profile was within normal limits, electrolytes were unremarkable, B1 is 30 creatinine is 1.2, troponins were 0.012, and 0.014, proBNP was 3430, lactic acid was normal at 1.6. This morning she remains on Cardizem drip at 5 mg per hour, she is in sinus rhythm with a controlled rate, her breathing is comfortable, she was on CPAP overnight with a pressure of 15 cm of water, she has been placed back on nasal cannula, and she denies difficulty breathing. Patient is on Xarelto. for history of paroxysmal atrial fibrillation Patient is a lifetime nonsmoker. She denies ever seeing a histology specialist, and she is not on any maintenance inhalers for breathing treatments. On 05/12/2019 patient seen in follow-up on selective care unit, she is awake and alert, she is on 2 L of oxygen and the pulse ox of 98%, afebrile, hemodynamically stable, patient sounds more congested and wheezy and today's exam, IV Solu-Medrol has been added and patient is currently receiving 40 mg every 8 hours. She remains in sinus rhythm, with a controlled rate, no complaints of chest pain, at times patient is bringing up some brown colored sputum. On 05/13/2019 patient seen in follow-up on selective care unit, still wheezy and congested, and she has been bringing up some mucus tinged with blood. Patient remains on 2 L of oxygen and the pulse ox of 98-99%, afebrile, hemodynamically stable, heart rate, remains in A. fib flutter with a rate of 87, she remains on the Route toe, and Cardizem CD 240 mg daily. She was started on oral Zithromax, she remains on IV steroids which we increased yesterday in view of increased bronchospastic state yesterday On 05/17/2019 patient seen in follow-up on general medical floor, she is in no acute distress, vital signs are stable, room air pulse ox 96%, no fever or chills, lung sounds reveal some diminished breath sounds at the bases, a few scattered rhonchi, no crackles, no wheezes. Sputum culture was positive for MRSA patient is on vancomycin for abiotic coverage, no fever or chills, patient is on IV steroids and breathing treatments. Objective - Vital Signs Vital signs: Vital Signs Temp 98.8 F 05/17/19 12:31 Pulse 84 05/17/19 12:31 Resp 20 05/17/19 12:31 BP 128/62 05/17/19 12:31 Pulse Ox 96 05/17/19 12:31 Intake & Output 05/16/19 05/17/19 05/17/19 18:59 06:59 18:59 Intake Total 120 Output Total 500 2 Balance -380 -2 Weight 77 kg Intake: Oral 120 Output: Urine 500 Stool 2 Other: Voiding Method Bedpan Bedpan Bedpan Diaper Diaper # Voids 1 4 1 # Bowel Movements 1 - Exam GENERAL EXAM: Alert, very pleasant, 68-year-old white female, in no acute distress Breathing is comfortable, room air pulse ox of 96%. No difficulty breathing, resting comfortably in bed. Patient has facial hair. Patient is very hard of hearing HEAD: Normocephalic/atraumatic. EYES: Normal reaction of pupils, equal size. Conjunctiva pink, sclera white. NOSE: Clear with pink turbinates. THROAT: No erythema or exudates. NECK: No masses, no JVD, no thyroid enlargement, no adenopathy. CHEST: No chest wall deformity. Symmetrical expansion. LUNGS: Equal air entry with scattered rhonchi, no crackles, no wheezes CVS: Irregular rate and rhythm, normal S1 and S2, no gallops, no murmurs, no rubs ABDOMEN: Soft, nontender. No hepatosplenomegaly, normal bowel sounds, no guarding or rigidity. EXTREMITIES: No clubbing, no edema, no cyanosis, 2+ pulses and upper and lower extremities. MUSCULOSKELETAL: Muscle strength and tone normal. SPINE: No scoliosis or deformity SKIN: No rashes CENTRAL NERVOUS SYSTEM: Alert and oriented -3. No focal deficits, tone is normal in all 4 extremities. PSYCHIATRIC: Alert and oriented -3. Appropriate affect. Intact judgment and insight. - Labs CBC & Chem 7: 05/16/19 05:31 05/16/19 05:31 Labs: Abnormal Lab Results - Last 24 Hours (Table) 05/16/19 05/16/19 05/17/19 Range/Units 16:33 19:42 06:51 POC Glucose (mg/dL) 151 H 216 H 258 H (75-99) mg/dL 05/17/19 Range/Units 11:41 POC Glucose (mg/dL) 275 H (75-99) mg/dL Microbiology - Last 24 Hours (Table) 05/10/19 20:19 Blood Culture - Final Blood No Growth after 144 hours Assessment and Plan Plan: Assessment: #1. Acute dyspnea related to A. fib with RVR, mild exacerbation of chronic bronchial asthma, unspecified, and tracheobronchitis with sputum cultures positive for MRSA. Initial chest x-ray not showing any acute process, patient presented with palpitations, A. fib RVR with a rate of 151, and wheezing. On today's evaluation 05/13/2019 patient remains in A. fib flutter with a controlled rate. #2. Recent upper respiratory infection #3. Chronic bronchial asthma, unspecified #4. Chronic hypoxic respiratory failure likely related to chronic CHF, and patient relates that she wears 2-3 L of oxygen on a regular basis #5. Obstructive sleep apnea on CPAP therapy with a pressure of 15 cm of water #6. Paroxysmal atrial fibrillation on Xarelto, remains in A. fib flutter with a controlled rate #7. Kidney disease stage III #8. Chronic congestive heart failure with preserved left ventricular systolic function #9. Essential hypertension #10. Type 2 diabetes mellitus without complications #11. Hyperlipidemia #12. Generalized anxiety disorder #13. Major depressive disorder #14. GERD/reflux #15. Hypercalcemia maintained on Sensipar, nightly serum calcium is 7.7 #16. History of MRSA infection in the abdominal wound following debridement of the left abdominal wall seroma #17. Chronic syndrome #8. Generalized medical debility and gait dysfunction Plan: Continue current medical treatment, a is on vancomycin for positive sputum cultures with MRSA, ID service is following, protein S acetone is being repeated, follow-up chest x-rays been ordered, clinically patient is in no acute distress, no fever or chills, still has some mild congestion but no significant wheezing, we'll decrease the IV steroids down to 40 twice daily, continue b reathing treatments will follow I performed a history & physical examination of the patient and discussed their management with my nurse practitioner, Marisa Redding. I reviewed the nurse practitioner's note and agree with the documented findings and plan of care. Lung sounds are positive for mild scattered wheezes and minimal bibasilar crackles . The findings and the impression was discussed with the patient. I attest to the documentation by the nurse practitioner. Time with Patient: Less than 30
--- NOTE | 2019-05-17 16:12 | P.PN ---
Progress Note - Text Progress Note Date: 05/17/19 Chief Complaint: Shortness of breath History of presenting complaint: This is a pleasant 68-year-old patient of Dr. Mccoy. Resident of [facility] off [address] . Has a legal guardian. Chronic stable medical conditions include CHF EF 50-60%, hypertension, hyperlipidemia, obstructive sleep apnea uses CPAP, chronic kidney disease stage III, anemia of kidney disease. Patient has got cognitive impairment 0352. Patient presented with shortness of breath some slight cough no fever and chills reported. Also had atrial fibrillation with a rapid ventricular rate. Was put on IV Cardizem drip. Home uses a wheelchair and a walker. Denies any chest pain. Admitted with atrial fibrillation with rapid ventricular rate, asthma exacerbation. Responded well to bronchodilator steroids. Started on Xarelto. Did have some blood stained sputum. Seen by pulmonary. Continue Xarelto. Today-. Slight cough is present. Not expectorating much. No congestion. Tolerating diet. Review of systems: Was done for constitutional, cardiovascular, GI, pulmonary. relevant finding as above Active Medications Hydrocodone Bitart/Acetaminophen ([place] 5-325) 2 each PO BID [facility] Last Admin: 05/17/19 10:42 Dose: 2 each Documented by: Al Hydroxide/Mg Hydroxide (Maalox) 10 ml PO Q4H PRN PRN Reason: Indigestion Last Admin: 05/16/19 10:36 Dose: 10 ml Documented by: Albuterol/Ipratropium (Duoneb 0.5 Mg-3 Mg/3 Ml Soln) 3 ml INHALATION RT-QID PRN PRN Reason: Shortness Of Breath Or Wheezing Albuterol/Ipratropium (Duoneb 0.5 Mg-3 Mg/3 Ml Soln) 3 ml INHALATION RT-QID [facility] Last Admin: 05/17/19 15:43 Dose: 3 ml Documented by: Atorvastatin Calcium (Lipitor) 40 mg PO HS [facility] Last Admin: 05/16/19 19:57 Dose: 40 mg Documented by: Benzocaine/Menthol (Cepacol Lozenge) 1 each MUCOUS MEM Q4HR PRN PRN Reason: Cough Last Admin: 05/15/19 06:25 Dose: 1 each Documented by: Budesonide (Pulmicort) 1 mg INHALATION RT-BID [facility] Last Admin: 05/17/19 08:12 Dose: 1 mg Documented by: Cinacalcet (Sensipar) 30 mg PO DAILY [facility] Last Admin: 05/17/19 10:49 Dose: 30 mg Documented by: Diltiazem HCl (Cardizem Cd) 240 mg PO DAILY [facility] Last Admin: 05/17/19 10:49 Dose: 240 mg Documented by: Famotidine (Pepcid) 20 mg PO DAILY@0800 [facility] Last Admin: 05/17/19 10:44 Dose: 20 mg Documented by: Formoterol Fumarate (Perforomist) 20 mcg INHALATION RT-BID [facility] Last Admin: 05/17/19 08:12 Dose: 20 mcg Documented by: Sodium Chloride (Saline 0.9%) 1,000 mls @ 10 mls/hr IV .Q24H [facility] Last Admin: 05/16/19 19:57 Dose: 10 mls/hr Documented by: Vancomycin HCl 1,500 mg/ (Sodium Chloride) 250 mls @ 125 mls/hr IVPB DAILY [facility] Last Admin: 05/17/19 10:44 Dose: 125 mls/hr Documented by: Insulin Aspart (Novolog) 0 unit SQ ACHS [facility]; Protocol Last Admin: 05/17/19 12:22 Dose: 4 unit Documented by: Lorazepam (Ativan) 0.5 mg PO BID [facility] Last Admin: 05/17/19 10:42 Dose: 0.5 mg Documented by: Losartan Potassium (Cozaar) 25 mg PO DAILY [facility] Last Admin: 05/17/19 10:44 Dose: 25 mg Documented by: Magnesium Hydroxide (Milk Of Magnesia) 2,400 mg PO DAILY PRN PRN Reason: Constipation Methylprednisolone Sodium Succinate (Solu-Medrol) 40 mg IV Q6HR [facility] Last Admin: 05/17/19 12:22 Dose: 40 mg Documented by: Morphine Sulfate (Morphine Sulfate (Inj)) 4 mg IV Q4HR PRN PRN Reason: Chest Pain Nitroglycerin (Nitrostat) 0.4 mg SUBLINGUAL Q5M PRN PRN Reason: Chest Pain Polyethylene Glycol (Miralax) 17 gm PO [facility] Last Admin: 05/16/19 19:57 Dose: 17 gm Documented by: Rivaroxaban (Xarelto) 15 mg PO [facility] Last Admin: 05/16/19 20:51 Dose: 15 mg Documented by: Senna/Docusate Sodium (Senokot-S) 1 each PO BID [facility] Last Admin: 05/17/19 10:42 Dose: 1 each Documented by: Sertraline HCl (Zoloft) 150 mg PO DAILY [facility] Last Admin: 05/17/19 10:41 Dose: 150 mg Documented by: Sodium Chloride (Saline Flush) 10 ml IV BID [facility] Last Admin: 05/17/19 12:23 Dose: 10 ml Documented by: Physical examination: VITAL SIGNS: 98.8, 84, 20, 128/62, 96% on room air GENERAL: BMI-31.6, laying in bed, awake, comfortable EYES: Pupils equal. Conjunctiva normal. HEENT: External appearance of nose and ears normal, oral cavity grossly normal. NECK: JVD not raised; masses not palpable. HEART: Heart sounds irregular no edema. LUNGS: Respiratory rate increased; decreased breath sounds, ABDOMEN: Soft, nontender, liver spleen not palpable, no masses palpable. PSYCH: Answering questions. Appropriately INVESTIGATIONS, reviewed in the clinical context: White count 12.4 hemoglobin 9.2 potassium 4.8 bun 50 creatinine 1.28 Previous testing White count 4.5 hemoglobin 10.2 platelets 212 potassium 4.2 bun 30 creatinine 1.2 Labs from June 2018 show bun of 51 creatinine of 2.16 EKG tracing personally reviewed by me-SVT versus atrial fibrillation with a rapid ventricular rate Chest x-ray film personally reviewed by me-cardiomegaly, lung bob clear Assessment: -Paroxysmal atrial fibrillation with rapid ventricular rate, likely contributing to patient's shortness of breath and back into sinus rhythm POA -Intermittent asthma with acute exacerbation, improving, POA -Blood-tinged sputum on improved -Chronic medical debility uses a walker -Normocytic anemia of chronic kidney disease -chronic congestive heart failure from diastolic dysfunction EF 50-60% -Essential hypertension -Hyperlipidemia -Obstructive sleep apnea uses a CPAP -Chronic kidney disease stage III from nephrosclerosis -Moderate 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 Plan: Patient getting bronchodilators, inhaled steroid, heart rate is well controlled, IV steroids. Also Xarelto. Vancomycin. ID is waiting for repeat x-ray of the chest, to determine antibiotics. We'll scale back on Solu-Medrol.
[2019-05-17 17:14] LABS: Glucose,Whole Blood 183 mg/dL (75-99)
[2019-05-17] MEDS: SODIUM CHLORIDE 0.9% 1,000 ML IV SCH (17:40)
--- NOTE | 2019-05-17 17:45 | XR ---
EXAMINATION TYPE: XR chest 2V DATE OF EXAM: 05/17/2019 COMPARISON: NONE HISTORY: Cough and short of breath. Follow-up pneumonia. TECHNIQUE: FINDINGS: Heart appears slightly enlarged. There is no heart failure. There is mild blunting of the l eft posterior costophrenic angle. There is also mild blunting on the right side. Bony thorax is intac t. IMPRESSION: Small pleural effusions. No heart failure seen. Mild cardiomegaly. There is probably no c hange compared to recent exam.
[2019-05-17 20:17] LABS: Glucose,Whole Blood 348 mg/dL (75-99)
[2019-05-17] MEDS: RIVAROXABAN 15 MG TAB PO SCH (20:40)
[2019-05-17] MEDS: ATORVASTATIN 40 MG TAB PO SCH (20:40)
[2019-05-17] MEDS: POLYETHYLENE GLYCOL 3350 17 GM POWD.PACK PO SCH (20:40)
--- NOTE | 2019-05-17 20:54 | PN ---
PROGRESS NOTE DATE OF SERVICE: 05/17/2019 REASON FOR FOLLOWUP: MRSA positive sputum cultures, question of tracheobronchitis versus pneumonia. INTERVAL HISTORY: The patient is currently afebrile. The patient is breathing slightly comfortably; however, she still has significant cough but not bringing up a significant amount of sputum. No nausea, no vomiting. No abdominal pain and no diarrhea. PHYSICAL EXAMINATION: On examination, her blood pressure is 128/62 with a pulse of 82, temperature 98.8. She is 96% on room air. General description is an elderly female up in the bed in no distress. RESPIRATORY SYSTEM: Unlabored breathing. Coarse breath sounds at the base bilaterally. No wheeze. HEART: S1, S2. Regular rate and rhythm. ABDOMEN: Soft. No tenderness. LABS/IMAGING: No new labs have been obtained today. Chest x-ray repeat is currently pending. DIAGNOSTIC IMPRESSION AND PLAN: Patient with sputum culture positive for methicillin-resistant Staphylococcus aeruginosa with concern for tracheobronchitis with underlying chronic obstructive pulmonary disease exacerbation, as the patient clinically is not behaving as pneumonia. Chest x-ray has been ordered. Will follow the results. Also follow results on the tomorrow. Currently on vancomycin; to continue and continue with supportive care. MMODL / IJN: [id number] /
[2019-05-18] MEDS ORDERED: methylPREDNISolone SOD SUCCI 40 MG/ML 1 ML VIAL IV SCH
[2019-05-18 07:08] LABS: Glucose,Whole Blood 195 mg/dL (75-99)
[2019-05-18] MEDS: BUDESONIDE 1 MG/2 ML NEBU INHALATION SCH (07:28)
[2019-05-18] MEDS: FORMOTEROL FUMARATE 20 MCG/2 ML NEBU INHALATION SCH (07:29)
[2019-05-18] MEDS: IPRATROPIUM-ALBUTEROL 3 ML NEB INHALATION SCH ×3 (07:29→15:27)
[2019-05-18 08:20] LABS: Calcium 6.9 mg/dL (8.4-10.2); Potassium 4.4 mmol/L (3.5-5.1)
[2019-05-18] MEDS: SERTRALINE 100 MG TAB PO SCH (08:32)
[2019-05-18] MEDS: FAMOTIDINE 20 MG TAB PO SCH (08:33)
[2019-05-18] MEDS: HYDROcodone/APAP 5-325MG 1 EACH TAB PO SCH (08:33)
[2019-05-18] MEDS: LORazepam 0.5 MG TAB PO SCH (08:34)
[2019-05-18] MEDS: INSULIN ASPART (NovoLOG) 100 UNIT/ML VIAL SQ SCH ×2 (08:34→12:57)
[2019-05-18] MEDS: LOSARTAN 25 MG TAB PO SCH (08:34)
[2019-05-18] MEDS: SENNOSIDES-DOCUSATE SODIUM 1 EACH TAB PO SCH (08:34)
[2019-05-18] MEDS: DILTIAZEM CD 240 MG CAP.ER.24H PO SCH (08:36)
[2019-05-18] MEDS: CINACALCET 30 MG TAB PO SCH (08:36)
[2019-05-18] MEDS: VANCOMYCIN 1,500 MG in SODIUM CHLORIDE 0.9% 250 ML IVPB SCH (08:49)
[2019-05-18] MEDS ORDERED: FUROSEMIDE 10 MG/ML 4 ML VIAL IV SCH (09:00)
--- NOTE | 2019-05-18 10:25 | P.PN ---
Subjective Progress Note Date: 05/18/19 68-year-old white female patient of Dr. Mccoy, [facility], with past medical history of hypertension, chronic kidney disease stage III, chronic anemia, obstructive sleep apnea on CPAP, paroxysmal atrial fibrillation, type 2 diabetes mellitus without complications, it br onchial asthma, unspecified, GERD/reflux, chronic congestive heart failure, hyperlipidemia, major depressive disorder, vascular dementia and questionable history of tuberculosis in childhood, who was brought into the emergency department on 2019 evaluation of tachycardia, difficulty breathing with wheezing complaints of palpitations. Patient had a recent upper respiratory infection. Her symptoms were also associated with chest discomfort, pain with inspiration, fever and cough. EKG showed atrial fibrillation with rapid ventricular response with a rate of 151, patient was started on Cardizem drip for rate control, chest x-ray was completed showing no active cardiopulmonary disease. Right hip and pelvis x-ray was completed showing advanced arthritic changes in the right hip joint with superior migration of the femoral head which progressed since prior computed tomography scan, and possibility of septic arthritis was not excluded, but no acute fractures were seen. Patient has been afebrile while in the hospital, no evidence of leukocytosis, blood cell count is 4.5, immobile globin is 10.2, correlation profile was within normal limits, electrolytes were unremarkable, B1 is 30 creatinine is 1.2, troponins were 0.012, and 0.014, proBNP was 3430, lactic acid was normal at 1.6. This morning she remains on Cardizem drip at 5 mg per hour, she is in sinus rhythm with a controlled rate, her breathing is comfortable, she was on CPAP overnight with a pressure of 15 cm of water, she has been placed back on nasal cannula, and she denies difficulty breathing. Patient is on Xarelto. for history of paroxysmal atrial fibrillation Patient is a lifetime nonsmoker. She denies ever seeing a male infertility specialist, and she is not on any maintenance inhalers for breathing treatments. On 05/12/2019 patient seen in follow-up on selective care unit, she is awake and alert, she is on 2 L of oxygen and the pulse ox of 98%, afebrile, hemodynamically stable, patient sounds more congested and wheezy and today's exam, IV Solu-Medrol has been added and patient is currently receiving 40 mg every 8 hours. She remains in sinus rhythm, with a controlled rate, no complaints of chest pain, at times patient is bringing up some brown colored sputum. On 05/13/2019 patient seen in follow-up on selective care unit, still wheezy and congested, and she has been bringing up some mucus tinged with blood. Patient remains on 2 L of oxygen and the pulse ox of 98-99%, afebrile, hemodynamically stable, heart rate, remains in A. fib flutter with a rate of 87, she remains on the Route toe, and Cardizem CD 240 mg daily. She was started on oral Zithromax, she remains on IV steroids which we increased yesterday in view of increased bronchospastic state yesterday On 05/17/2019 patient seen in follow-up on general medical floor, she is in no acute distress, vital signs are stable, room air pulse ox 96%, no fever or chills, lung sounds reveal some diminished breath sounds at the bases, a few scattered rhonchi, no crackles, no wheezes. Sputum culture was positive for MRSA patient is on vancomycin for abiotic coverage, no fever or chills, patient is on IV steroids and breathing treatments. On 05/18/2019 patient seen in follow-up on medical surgical floor. Less congested, less dyspneic, doing better, no acute distress. She is on vancomycin for MRSA tracheobronchitis, chest x-ray was done showing small pleural effusions, mild cardiomegaly, pro-calcitonin is very slightly elevated to 0.13, infectious disease is following. Clinically patient has had no fever or chills. She has an ineffective cough, she is able to bring up some anaya colored secretions, she continues on breathing treatments and IV steroids. Objective - Vital Signs Vital signs: Vital Signs Temp 98.0 F 05/18/19 05:00 Pulse 80 05/18/19 07:52 Resp 16 05/18/19 05:00 BP 139/72 05/18/19 05:00 Pulse Ox 100 05/18/19 05:00 Intake & Output 05/17/19 05/18/19 05/18/19 18:59 06:59 18:59 Intake Total 570 1770 Output Total 304 Balance 266 1770 Weight 77 kg Intake: Intake, IV Titration 330 Amount Sodium Chloride 0.9% 1, 80 000 ml @ 10 mls/hr IV . Q24H SHAGU[facility] Rx#:[id number] Vancomycin 1,500 mg In 250 Sodium Chloride 0.9% 250 ml @ 125 mls/hr IVPB DAILY SHAGUFTA Rx#:[id number] Oral 240 1770 Output: Urine 300 Stool 4 Other: Voiding Method Bedpan Bedpan Diaper Diaper # Voids 1 1 - Exam GENERAL EXAM: Alert, very pleasant, 68-year-old white female, in no acute distress Breathing is comfortable, room air pulse ox of 96%. No difficulty breathing, resting comfortably in bed. Patient has facial hair. Patient is very hard of hearing HEAD: Normocephalic/atraumatic. EYES: Normal reaction of pupils, equal size. Conjunctiva pink, sclera white. NOSE: Clear with pink turbinates. THROAT: No erythema or exudates. NECK: No masses, no JVD, no thyroid enlargement, no adenopathy. CHEST: No chest wall deformity. Symmetrical expansion. LUNGS: Equal air entry with scattered rhonchi, no crackles, no wheezes CVS: Irregular rate and rhythm, normal S1 and S2, no gallops, no murmurs, no rubs ABDOMEN: Soft, nontender. No hepatosplenomegaly, normal bowel sounds, no guarding or rigidity. EXTREMITIES: No clubbing, no edema, no cyanosis, 2+ pulses and upper and lower extremities. MUSCULOSKELETAL: Muscle strength and tone normal. SPINE: No scoliosis or deformity SKIN: No rashes CENTRAL NERVOUS SYSTEM: Alert and oriented -3. No focal deficits, tone is normal in all 4 extremities. PSYCHIATRIC: Alert and oriented -3. Appropriate affect. Intact judgment and insight. - Labs CBC & Chem 7: 05/16/19 05:31 05/18/19 07:48 Labs: Abnormal Lab Results - Last 24 Hours (Table) 05/17/19 05/17/19 05/17/19 Range/Units 11:41 14:27 17:12 Sodium (137-145) mmol/L BUN (7-17) mg/dL Creatinine (0.52-1.04) mg/dL Glucose (74-99) mg/dL POC Glucose (mg/dL) 275 H 183 H (75-99) mg/dL Calcium (8.4-10.2) mg/dL Procalcitonin 0.13 H (0.02-0.09) ng/mL 05/17/19 05/18/19 05/18/19 Range/Units 20:16 07:07 07:48 Sodium 134 L (137-145) mmol/L BUN 54 H (7-17) mg/dL Creatinine 1.29 H (0.52-1.04) mg/dL Glucose 170 H (74-99) mg/dL POC Glucose (mg/dL) 348 H 195 H (75-99) mg/dL Calcium 6.9 L (8.4-10.2) mg/dL Procalcitonin (0.02-0.09) ng/mL Microbiology - Last 24 Hours (Table) 05/13/19 09:06 Gram Stain - Final Sputum Sputum Culture - Final Methicillin resist S. aureus Assessment and Plan Plan: Assessment: #1. Acute dyspnea related to A. fib with RVR, mild exacerbation of chronic bronchial asthma, unspecified, and tracheobronchitis with sputum cultures positive for MRSA. Initial chest x-ray not showing any acute process, patient presented with palpitations, A. fib RVR with a rate of 151, and wheezing. On today's evaluation 05/13/2019 patient remains in A. fib flutter with a controlled rate. #2. Recent upper respiratory infection #3. Chronic bronchial asthma, unspecified #4. Chronic hypoxic respiratory failure likely related to chronic CHF, and patient relates that she wears 2-3 L of oxygen on a regular basis #5. Obstructive sleep apnea on CPAP therapy with a pressure of 15 cm of water #6. Paroxysmal atrial fibrillation on Xarelto, remains in A. fib flutter with a controlled rate #7. Kidney disease stage III #8. Chronic congestive heart failure with preserved left ventricular systolic function #9. Essential hypertension #10. Type 2 diabetes mellitus without complications #11. Hyperlipidemia #12. Generalized anxiety disorder #13. Major depressive disorder #14. GERD/reflux #15. Hypercalcemia maintained on Sensipar, nightly serum calcium is 7.7 #16. History of MRSA infection in the abdominal wound following debridement of the left abdominal wall seroma #17. Chronic syndrome #8. Generalized medical debility and gait dysfunction Plan: Estrace chest x-ray has been reviewed, no clear evidence of pneumonia, patient is afebrile, pro-calcitonin only slightly elevated, will add IV Lasix 40 mg on the daily basis, continue with all the other treatments. I performed a history & physical examination of the patient and discussed their management with my nurse practitioner, Marisa Redding. I reviewed the nurse practitioner's note and agree with the documented findings and plan of care. Lung sounds are positive for mild scattered wheezes and minimal bibasilar crackles . The findings and the impression was discussed with the patient. I attest to the documentation by the nurse practitioner. Time with Patient: Less than 30
[2019-05-18 11:14] LABS: Glucose,Whole Blood 250 mg/dL (75-99)
[2019-05-18 11:42] VITALS: BP 123/80; RESP 20; TEMP 98
--- NOTE | 2019-05-18 11:55 | P.DS ---
Providers Date of admission: 05/10/19 22:18 Expected date of discharge: 05/18/19 Attending physician: Eddi Munoz Consults: 05/10/19 22:18 Consult Physician Urgent Consulting Provider: Emir Hamm Consult Reason/Comments: afib Do you want consulting provider notified?: Yes 05/10/19 22:48 Consult Physician Urgent Consulting Provider: Armani Rubalcava Consult Reason/Comments: hypoxia Do you want consulting provider notified?: Yes 05/16/19 11:50 Consult Physician Stat Consulting Provider: Pam Harper Consult Reason/Comments: MRSA Do you want consulting provider notified?: Yes Primary care physician: [facility] Course: Chief Complaint: Shortness of breath History of presenting complaint: This is a pleasant 68-year-old patient of Dr. Mccoy. Resident of [facility] [address] . Has a legal guardian. Chronic stable medical conditions include CHF EF 50-60%, hypertension, hyperlipidemia, obstructive sleep apnea uses CPAP, chronic kidney disease stage III, anemia of kidney disease. Patient has got cognitive impairment 0352. Patient presented with shortness of breath some slight cough no fever and chills reported. Also had atrial fibrillation with a rapid ventricular rate. Was put on IV Cardizem drip. Home uses a wheelchair and a walker. Denies any chest pain. Admitted with atrial fibrillation with rapid ventricular rate, asthma exacerbation. Responded well to bronchodilator steroids. Started on Xarelto. Did have some blood stained sputum. Seen by pulmonary. Continue Xarelto. Today-. Slight cough. Bit of hoarseness. Did tolerate diet. Found to have oropharyngeal thrush. Started on Diflucan. Discussed results with Dr. Palm from [place]. Discharged on 7 days of Zyvox.. At 75% of her breakfast today. Discussion and discharge planning more than 35 minutes Consultations: Dr. Zhang and associates from pulmonary Dr. Pereira and associates from cardiology Physical examination: VITAL SIGNS: 98, 94, 20, 123/80, 99% on room air GENERAL:, laying in bed, awake, comfortable EYES: Pupils equal. Conjunctiva normal. HEENT: External appearance of nose and ears normal, oral cavity grossly normal. White spots in the pharynx NECK: JVD not raised; masses not palpable. HEART: Heart sounds irregular no edema. LUNGS: Respiratory rate increased; decreased breath sounds, ABDOMEN: Soft, nontender, liver spleen not palpable, no masses palpable. PSYCH: Answering questions. Appropriately INVESTIGATIONS, reviewed in the clinical context: Potassium 4.4 bun 54 creatinine 1.29 Previous testing White count 4.5 hemoglobin 10.2 platelets 212 potassium 4.2 bun 30 creatinine 1.2 Labs from June 2018 show bun of 51 creatinine of 2.16 EKG tracing personally reviewed by me-SVT versus atrial fibrillation with a rapid ventricular rate Chest x-ray film personally reviewed by me-cardiomegaly, lung bob clear 2-D echo-year 50-45% Assessment: -Paroxysmal atrial fibrillation with rapid ventricular rate, likely contributing to patient's shortness of breath and back into sinus rhythm POA -Intermittent asthma with acute exacerbation, improving, POA -Pharyngeal candidiasis -Chronic medical debility uses a walker -Normocytic anemia of chronic kidney disease -chronic congestive heart failure from diastolic dysfunction EF 50-60% -Essential hypertension -Hyperlipidemia -Obstructive sleep apnea uses a CPAP -Chronic kidney disease stage III from nephrosclerosis -Moderate 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 Disposition: ECF/[facility] [address] Patient Condition at Discharge: Stable Plan - Discharge Summary Discharge Rx Participant: No New Discharge Prescriptions: New Diltiazem Cd [Cardizem CD] 240 mg PO DAILY cap.er.24h Losartan [Cozaar] 25 mg PO DAILY tab Fluconazole [Diflucan] 100 mg PO DAILY #10 tab Ipratropium-Albuterol Nebulize [Duoneb 0.5 mg-3 mg/3 ml Soln] 3 ml INHALATION RT-QID ml Ipratropium-Albuterol Nebulize [Duoneb 0.5 mg-3 mg/3 ml Soln] 3 ml INHALATION RT-QID PRN ml PRN Reason: Shortness Of Breath Or Wheezing Atorvastatin [Lipitor] 40 mg PO HS tab predniSONE 10 mg PO DAILY #30 tab Linezolid [Zyvox] 600 mg PO Q12H #14 tab Continue Magnesium Hydroxide [Milk of Magnesia] 2,400 mg PO DAILY PRN PRN Reason: Constipation Sennosides-Docusate Sodium [Senokot-S] 1 tab PO BID Rivaroxaban [Xarelto] 15 mg PO HS Cinacalcet [Sensipar] 30 mg PO DAILY Polyethylene Glycol 3350 [Miralax] 17 gm PO HS Famotidine [Pepcid] 20 mg PO DAILY@0800 Sertraline [Zoloft] 150 mg PO DAILY Mag Hydrox/Aluminum Hyd/Simeth [Mylanta Maximum Strength Liq] 10 ml PO Q4H PRN PRN Reason: Indigestion LORazepam [Ativan] 0.5 mg PO BID #6 tab HYDROcodone/APAP 5-325MG [[place] 5-325] 2 tab PO BID #12 tab Discontinued Diltiazem Cd [Cardizem CD] 120 mg PO HS Discharge Medication List Magnesium Hydroxide [Milk of Magnesia] 2,400 mg PO DAILY PRN 10/19/16 [History] Cinacalcet [Sensipar] 30 mg PO DAILY 09/18/17 [History] Rivaroxaban [Xarelto] 15 mg PO HS 09/18/17 [History] Sennosides-Docusate Sodium [Senokot-S] 1 tab PO BID 09/18/17 [History] Famotidine [Pepcid] 20 mg PO DAILY@0800 05/10/19 [History] Mag Hydrox/Aluminum Hyd/Simeth [Mylanta Maximum Strength Liq] 10 ml PO Q4H PRN 05/10/19 [History] Polyethylene Glycol 3350 [Miralax] 17 gm PO HS 05/10/19 [History] Sertraline [Zoloft] 150 mg PO DAILY 05/10/19 [History] Atorvastatin [Lipitor] 40 mg PO HS tab 05/18/19 [Rx] Diltiazem Cd [Cardizem CD] 240 mg PO DAILY cap.er.24h 05/18/19 [Rx] Fluconazole [Diflucan] 100 mg PO DAILY #10 tab 05/18/19 [Rx] HYDROcodone/APAP 5-325MG [[place] 5-325] 2 tab PO BID #12 tab 05/18/19 [Rx] Ipratropium-Albuterol Nebulize [Duoneb 0.5 mg-3 mg/3 ml Soln] 3 ml INHALATION RT-QID ml 05/18/19 [Rx] Ipratropium-Albuterol Nebulize [Duoneb 0.5 mg-3 mg/3 ml Soln] 3 ml INHALATION RT-QID PRN ml 05/18/19 [Rx] LORazepam [Ativan] 0.5 mg PO BID #6 tab 05/18/19 [Rx] Linezolid [Zyvox] 600 mg PO Q12H #14 tab 05/18/19 [Rx] Losartan [Cozaar] 25 mg PO DAILY tab 05/18/19 [Rx] predniSONE 10 mg PO DAILY #30 tab 05/18/19 [Rx] Follow up Appointment(s)/Referral(s): Travis Mccoy DO [Primary Care Provider] - 1-2 days [facility] [NON-STAFF] - As Needed
[2019-05-18] MEDS ORDERED: FLUCONAZOLE 100 MG TAB PO ONE (12:00)
[2019-05-18] MEDS ORDERED: predniSONE 20 MG TAB PO SCH (12:00)
--- NOTE | 2019-05-18 12:36 | PN ---
PROGRESS NOTE DATE OF SERVICE: 05/18/2019 REASON FOR FOLLOWUP: MRSA pneumonia. INTERVAL HISTORY: The patient is seen on rounds this morning. The patient is mentioning not feeling as great today. He did have a dry irritating cough, but no sputum. No nausea, no vomiting. No abdominal pain, no diarrhea. PHYSICAL EXAMINATION: Blood pressure 123/80 with a pulse of 94, temperature 98, he is 99% on room air. General description is an elderly female, lying in bed in no distress. RESPIRATORY SYSTEM: Unlabored breathing, coarse breath sounds bilaterally. HEART: S1, S2. Regular rate and rhythm. ABDOMEN: Soft, no tenderness. LABS: BUN of 54, creatinine is 1.29. DIAGNOSTIC IMPRESSION AND PLAN: Patient with MRSA positive sputum cultures with concern for possible tracheobronchitis/early pneumonia as the patient did have an elevated procalcitonin level. Plan is to finish therapy with oral Zyvox 600 mg twice a day for a week with close outpatient followup. Plan of care was discussed with the admitting physician working on discharge. CARLOS ALBERTO / FRANCESN: [id number] /
[2019-05-18 15:42] VITALS: PULSE 92
[2019-05-18] MEDS: SODIUM CHLORIDE 0.9% 1,000 ML IV SCH (15:43)
[2019-05-19] MEDS ORDERED: VANCOMYCIN TROUGH DUE 1 EACH MISC MISCELLANE ONE (08:00)
[2019-05-19] MEDS ORDERED: FLUCONAZOLE 100 MG TAB PO SCH (09:00)
--- NOTE | 2019-05-20 09:08 | CDI ---
Documentation Clarification Form Date: 05/20/2019 08:38:10 AM From: Ruma Dhillon Phone: Patient has a stage III left buttock pressure ulcer for LONGTERM and DRG 640 Admit Date: 05/10/2019 10:18:00 PM Patient Name: Eleni Moses Visit Number: [id number] Discharge Date: 05/18/2019 04:22:00 PM ATTENTION: The Clinical Documentation Specialists (CDI) and [facility] Coding Staff appreciate your assistance in clarifying documentation. Please respond to the clarification below the line at the bottom and electronically sign. The CDI & [facility] Coding staff will review the response and follow-up if needed. Please note: Queries are made part of the Legal Health Record. If you have any questions, please contact the author of this message via ITS. Dr. Eddi Munoz 3/4 PN from [place] documents patient with MRSA positive sputum cultures concern for possible traceobronchitis /early pneumonia as the patient did have an elevated procalcitonin level. History/Risk Factors: Positive MRSA sputum, hx of MRSA, blood streaks in sputum, pharyngeal candidiasis, cough and SOB Vital signs:98 F, 143 bpm, 21, 117/97, 100% on Bipap WBC/Left shift:4.5 Treatment: Vanco and continue Zyvox 600 mg orally monitor closely outpatient Antibiotics Vanco and Zyvox Breathing Tx: Bipap In order to capture the severity of condition, please clarify if the condition signifies and you are treating for: MRSA early pneumonia MRSA tracheobronchitis MRSA tracheobronicits ruled out MRSA early pneumonia ruled out Other, please specify Unable to determine MRSA causing pneumonia MTDD
== END 2019-05-18 16:22 | DRG 308 ==
LOC: EEVIPCON 19:59 → EC 19:59 → 3SCARD 22:18 → 5NMEDONC 05-16 18:06
PROVIDERS: ADMIT Hospitalist; ATTEND Hospitalist
PROC: 5A09357 Assistance with Respiratory Ventilation, Less than 24 Consecutive Hours, Continuous Positive Airway Pressure (ICD-10-PCS; principal; 2019-05-10)
DX: I48.0 Paroxysmal atrial fibrillation (principal); J96.21 Acute and chronic respiratory failure with hypoxia; J15.212 Pneumonia due to Methicillin resistant Staphylococcus aureus; I13.0 Hypertensive heart and chronic kidney disease with heart failure and stage 1 through stage 4 chronic kidney disease, or unspecified chronic kidney disease; I50.32 Chronic diastolic (congestive) heart failure; B37.89 Other sites of candidiasis; J44.1 Chronic obstructive pulmonary disease with (acute) exacerbation; J44.0 Chronic obstructive pulmonary disease with (acute) lower respiratory infection; J45.21 Mild intermittent asthma with (acute) exacerbation; R04.2 Hemoptysis; I48.92 Unspecified atrial flutter; D63.1 Anemia in chronic kidney disease; E11.22 Type 2 diabetes mellitus with diabetic chronic kidney disease; E66.01 Morbid (severe) obesity due to excess calories; E78.5 Hyperlipidemia, unspecified; E83.52 Hypercalcemia; G30.1 Alzheimer's disease with late onset; F02.80 Dementia in other diseases classified elsewhere, unspecified severity, without behavioral disturbance, psychotic disturbance, mood disturbance, and anxiety; F32.9 Major depressive disorder, single episode, unspecified; F41.1 Generalized anxiety disorder; G47.33 Obstructive sleep apnea (adult) (pediatric); Z99.89 Dependence on other enabling machines and devices; K21.9 Gastro-esophageal reflux disease without esophagitis; K59.00 Constipation, unspecified; N18.3 Chronic kidney disease, stage 3 (moderate); Z79.01 Long term (current) use of anticoagulants; Z79.899 Other long term (current) drug therapy; Z85.828 Personal history of other malignant neoplasm of skin; Z86.11 Personal history of tuberculosis; Z86.14 Personal history of Methicillin resistant Staphylococcus aureus infection; Z99.81 Dependence on supplemental oxygen; M16.11 Unilateral primary osteoarthritis, right hip; L98.491 Non-pressure chronic ulcer of skin of other sites limited to breakdown of skin; R53.81 Other malaise; Z88.5 Allergy status to narcotic agent; H91.90 Unspecified hearing loss, unspecified ear
CPT/HCPCS: 36415; 71045; 71046; 73502; 80048; 80053; 80061; 83605; 83735; 83880; 84145; 84484; 85025; 85610; 85730; 87040; 87070; 87077; 87186; 87205; 87502; 93005; 93306; 94640; 94660; 94760; 96365; 96375; 96376; 99291

== ENCOUNTER 2019-07-31 12:01 | Inpatient (IN) | payer MEDICARE, OTHER ==
[2019-07-31] MEDS ORDERED: ACETAMINOPHEN TAB 500 MG TAB PO PRN (12:35)
[2019-07-31] MEDS ORDERED: ACETAMINOPHEN TAB 500 MG TAB PO STA (12:35)
--- NOTE | 2019-07-31 12:38 | ED ---
General Adult HPI - General Chief complaint: Arrhythmia/Palpitations Stated complaint: AFIB Time Seen by Provider: 07/31/19 12:04 Source: patient, EMS, RN notes reviewed Mode of arrival: EMS Limitations: no limitations - History of Present Illness Initial comments: Patient is a pleasant 68-year-old female presenting to the emergency Department with cough. Patient states she does have somewhat chronic cough however symptoms have worsened over the past week. Patient has occasional yellow sputum. No significant dyspnea. Patient was found to have be tachycardic today. Patient admits to history of atrial fibrillation. Patient denies any chest pain. No leg pain or leg swelling. - Related Data Home Medications Medication Instructions Recorded Confirmed Magnesium Hydroxide [Milk of 2,400 mg PO DAILY PRN 10/19/16 05/10/19 Magnesia] Cinacalcet [Sensipar] 30 mg PO DAILY 09/18/17 05/10/19 Rivaroxaban [Xarelto] 15 mg PO HS 09/18/17 05/10/19 Sennosides-Docusate Sodium 1 tab PO BID 09/18/17 05/10/19 [Senokot-S] Famotidine [Pepcid] 20 mg PO DAILY@0800 05/10/19 05/10/19 Mag Hydrox/Aluminum Hyd/Simeth 10 ml PO Q4H PRN 05/10/19 05/10/19 [Mylanta Maximum Strength Liq] Polyethylene Glycol 3350 [Miralax] 17 gm PO HS 05/10/19 05/10/19 Sertraline [Zoloft] 150 mg PO DAILY 05/10/19 05/10/19 Previous Rx's Medication Instructions Recorded Atorvastatin [Lipitor] 40 mg PO HS tab 05/18/19 Diltiazem Cd [Cardizem CD] 240 mg PO DAILY cap.er.24h 05/18/19 Fluconazole [Diflucan] 100 mg PO DAILY #10 tab 05/18/19 HYDROcodone/APAP 5-325MG [[place] 2 tab PO BID #12 tab 05/18/19 5-325] Ipratropium-Albuterol Nebulize 3 ml INHALATION RT-QID ml 05/18/19 [Duoneb 0.5 mg-3 mg/3 ml Soln] Ipratropium-Albuterol Nebulize 3 ml INHALATION RT-QID PRN ml 05/18/19 [Duoneb 0.5 mg-3 mg/3 ml Soln] LORazepam [Ativan] 0.5 mg PO BID #6 tab 05/18/19 Linezolid [Zyvox] 600 mg PO Q12H #14 tab 05/18/19 Losartan [Cozaar] 25 mg PO DAILY tab 05/18/19 predniSONE 10 mg PO DAILY #30 tab 05/18/19 Allergies Allergy/AdvReac Type Severity Reaction Status Date / Time adhesive Allergy Rash/Hives Verified 05/10/19 20:45 codeine Allergy Rash/Hives Verified 05/10/19 20:45 Review of Systems ROS Statement: Those systems with pertinent positive or pertinent negative responses have been documented in the HPI. ROS Other: All systems not noted in ROS Statement are negative. Constitutional: Reports: as per HPI, fever, chills Eyes: Denies: eye pain ENT: Denies: ear pain Respiratory: Reports: as per HPI, cough Cardiovascular: Denies: chest pain Endocrine: Reports: fatigue Gastrointestinal: Denies: abdominal pain Genitourinary: Denies: dysuria Musculoskeletal: Denies: back pain Skin: Denies: rash Neurological: Denies: weakness Past Medical History Past Medical History: Atrial Fibrillation, Asthma, Heart Failure, COPD, Dementia, Diabetes Mellitus, Hyperlipidemia, Hypertension, Renal Disease, Sleep Apnea/CPAP/BIPAP Additional Past Medical History / Comment(s): Morbid obesity, obstructive sleep apnea maintained on CPAP , uti, anemia, kidney cyst History of Any Multi-Drug Resistant Organisms: MRSA Date of last positivie culture/infection: 05/13/19 MDRO Source:: SPUTUM Past Surgical History: Breast Surgery, Hernia Repair Additional Past Surgical History / Comment(s): cataracts, panniculectomy and I&D of abdominal mass Past Anesthesia/Blood Transfusion Reactions: No Reported Reaction Past Psychological History: Anxiety Smoking Status: Never smoker Past Alcohol Use History: None Reported Past Drug Use History: None Reported - Past Family History Mother Family Medical History: CVA/TIA Father Additional Family Medical History / Comment(s): WAS INJURED [place], also had hx tb but from complications of his injuries Brother(s) Additional Family Medical History / Comment(s): at age 2 years 10months tb General Exam Limitations: no limitations General appearance: alert, in no apparent distress Head exam: Present: normocephalic Eye exam: Present: normal appearance Neck exam: Present: normal inspection Respiratory exam: Present: normal lung sounds bilaterally Cardiovascular Exam: Present: tachycardia, irregular rhythm GI/Abdominal exam: Present: soft. Absent: tenderness Extremities exam: Present: normal inspection. Absent: pedal edema, calf tenderness Neurological exam: Present: alert Psychiatric exam: Present: normal affect, normal mood Skin exam: Present: normal color Course Vital Signs 07/31/19 07/31/19 12:06 13:57 Temperature 99.9 F H Pulse Rate 130 H 128 H Respiratory 18 18 Rate Blood Pressure 124/84 133/86 O2 Sat by Pulse 100 100 Oximetry EKG Findings - EKG Comments: EKG Findings:: Atrial flutter with RVR, rate 117. variable AV block. QRS 92. QT 334. QTC 465. Left axis. Incomplete right bundle-branch block. No acute ST change. Medical Decision Making - Medical Decision Making Patient reevaluated. Patient was updated. Patient does have evidence of urinary tract infection. Costa testing pending. Patient does have bump in troponin. Patient is currently on Xarelto. Dr. Munoz has been paged for admission covering for Dr. Mccoy - Lab Data Result diagrams: 07/31/19 12:20 07/31/19 12:20 Lab Results 07/31/19 07/31/19 07/31/19 Range/Units 12:20 12:20 12:20 WBC 7.1 (3.8-10.6) k/uL RBC 3.22 L (3.80-5.40) m/uL Hgb 9.2 L (11.4-16.0) gm/dL Hct 29.1 L (34.0-46.0) % MCV 90.3 (80.0-100.0) fL MCH 28.6 (25.0-35.0) pg MCHC 31.7 (31.0-37.0) g/dL RDW 15.4 (11.5-15.5) % Plt Count 207 (150-450) k/uL Neutrophils % 53 % Lymphocytes % 35 % Monocytes % 6 % Eosinophils % 3 % Basophils % 0 % Neutrophils # 3.8 (1.3-7.7) k/uL Lymphocytes # 2.5 (1.0-4.8) k/uL Monocytes # 0.4 (0-1.0) k/uL Eosinophils # 0.2 (0-0.7) k/uL Basophils # 0.0 (0-0.2) k/uL PT 10.5 (9.0-12.0) sec INR 1.0 (<1.2) APTT 28.0 (22.0-30.0) sec Sodium 138 (137-145) mmol/L Potassium 5.0 (3.5-5.1) mmol/L Chloride 103 (98-107) mmol/L Carbon Dioxide 30 (22-30) mmol/L Anion Gap 5 mmol/L BUN 30 H (7-17) mg/dL Creatinine 1.04 (0.52-1.04) mg/dL Est GFR (CKD-EPI)AfAm 63 (>60 ml/min/1.73 sqM) Est GFR (CKD-EPI)NonAf 55 (>60 ml/min/1.73 sqM) Glucose 86 (74-99) mg/dL Plasma Lactic Acid Russ (0.7-2.0) mmol/L Calcium 8.6 (8.4-10.2) mg/dL Magnesium 1.7 (1.6-2.3) mg/dL Total Bilirubin 0.1 L (0.2-1.3) mg/dL AST 21 (14-36) U/L ALT 8 (4-34) U/L Alkaline Phosphatase 57 (38-126) U/L Lactate Dehydrogenase 362 (313-618) U/L Troponin I (0.000-0.034) ng/mL C-Reactive Protein 7.8 (<10.0) mg/L Total Protein 6.0 L (6.3-8.2) g/dL Albumin 3.3 L (3.5-5.0) g/dL Urine Color Urine Appearance (Clear) Urine pH (5.0-8.0) Ur Specific Adams (1.001-1.035) Urine Protein (Negative) Urine Glucose (UA) (Negative) Urine Ketones (Negative) Urine Blood (Negative) Urine Nitrite (Negative) Urine Bilirubin (Negative) Urine Urobilinogen (<2.0) mg/dL Ur Leukocyte Esterase (Negative) Urine RBC (0-5) /hpf Urine WBC (0-5) /hpf Ur Squamous Epith Cells (0-4) /hpf Urine Bacteria (None) /hpf Urine Mucus (None) /hpf 07/31/19 07/31/19 07/31/19 Range/Units 12:20 12:20 13:48 WBC (3.8-10.6) k/uL RBC (3.80-5.40) m/uL Hgb (11.4-16.0) gm/dL Hct (34.0-46.0) % MCV (80.0-100.0) fL MCH (25.0-35.0) pg MCHC (31.0-37.0) g/dL RDW (11.5-15.5) % Plt Count (150-450) k/uL Neutrophils % % Lymphocytes % % Monocytes % % Eosinophils % % Basophils % % Neutrophils # (1.3-7.7) k/uL Lymphocytes # (1.0-4.8) k/uL Monocytes # (0-1.0) k/uL Eosinophils # (0-0.7) k/uL Basophils # (0-0.2) k/uL PT (9.0-12.0) sec INR (<1.2) APTT (22.0-30.0) sec Sodium (137-145) mmol/L Potassium (3.5-5.1) mmol/L Chloride (98-107) mmol/L Carbon Dioxide (22-30) mmol/L Anion Gap mmol/L BUN (7-17) mg/dL Creatinine (0.52-1.04) mg/dL Est GFR (CKD-EPI)AfAm (>60 ml/min/1.73 sqM) Est GFR (CKD-EPI)NonAf (>60 ml/min/1.73 sqM) Glucose (74-99) mg/dL Plasma Lactic Acid Russ <0.5 L (0.7-2.0) mmol/L Calcium (8.4-10.2) mg/dL Magnesium (1.6-2.3) mg/dL Total Bilirubin (0.2-1.3) mg/dL AST (14-36) U/L ALT (4-34) U/L Alkaline Phosphatase (38-126) U/L Lactate Dehydrogenase (313-618) U/L Troponin I 0.112 H* (0.000-0.034) ng/mL C-Reactive Protein (<10.0) mg/L Total Protein (6.3-8.2) g/dL Albumin (3.5-5.0) g/dL Urine Color Yellow Urine Appearance Clear (Clear) Urine pH 6.5 (5.0-8.0) Ur Specific Adams 1.015 (1.001-1.035) Urine Protein 2+ H (Negative) Urine Glucose (UA) Negative (Negative) Urine Ketones Negative (Negative) Urine Blood Trace H (Negative) Urine Nitrite Negative (Negative) Urine Bilirubin Negative (Negative) Urine Urobilinogen <2.0 (<2.0) mg/dL Ur Leukocyte Esterase Large H (Negative) Urine RBC 7 H (0-5) /hpf Urine WBC 28 H (0-5) /hpf Ur Squamous Epith Cells 2 (0-4) /hpf Urine Bacteria Rare H (None) /hpf Urine Mucus Rare H (None) /hpf - Radiology Data Radiology results: image reviewed (Chest x-ray shows cardiomegaly. Cannot exclude small left effusion) Critical Care Time Critical Care Time: Yes Total Critical Care Time: 33 Disposition Clinical Impression: Atrial flutter with rapid ventricular response, Urinary tract infection Disposition: ADMITTED IP TO THIS HOSP Is patient prescribed a controlled substance at d/c from ED?: No Referrals: Travis Mccoy DO [Primary Care Provider] - 1-2 days Decision Time: 14:31
[2019-07-31] MEDS ORDERED: DILTIAZEM 125 MG in SODIUM CHLORIDE 0.9% 100 ML IV SCH (12:45)
[2019-07-31 12:51] LABS: Basophils % (A) 0 %; Eosinophils # (A) 0.2 k/uL (0-0.7); Eosinophils % (A) 3 %; HCT 29.1 % (34.0-46.0); HGB 9.2 gm/dL (11.4-16.0); Lymphocytes # (A) 2.5 k/uL (1.0-4.8); Lymphocytes % (A) 35 %; MCH 28.6 pg (25.0-35.0); MCHC 31.7 g/dL (31.0-37.0); MCV 90.3 fL (80.0-100.0); Mean Platelet Volume 7.8; Monocytes # (A) 0.4 k/uL (0-1.0); Monocytes % (A) 6 %; Neutrophils # (A) 3.8 k/uL (1.3-7.7); Neutrophils % (A) 53 %; Platelet Count 207 k/uL (150-450); RBC 3.22 m/uL (3.80-5.40); RDW 15.4 % (11.5-15.5); WBC 7.1 k/uL (3.8-10.6)
[2019-07-31 13:01] LABS: Prothrombin Time 10.5 sec (9.0-12.0)
[2019-07-31 13:03] LABS: Albumin 3.3 g/dL (3.5-5.0); C Reactive Protein 7.8 mg/L (<10.0); Calcium 8.6 mg/dL (8.4-10.2); Magnesium 1.7 mg/dL (1.6-2.3); Total Bilirubin 0.1 mg/dL (0.2-1.3)
--- NOTE | 2019-07-31 13:31 | XR ---
EXAMINATION TYPE: XR chest 1V portable DATE OF EXAM: 07/31/2019 HISTORY: Suspected COVID-19 pneumonia. REFERENCE: Previous study dated 05/17/2019. FINDINGS: The heart is enlarged. The lungs are clear. There is blunting of the left CP angle. I could not exclude a small effusion. IMPRESSION: 1. CARDIOMEGALY. 2. I COULD NOT EXCLUDE A SMALL LEFT EFFUSION.
[2019-07-31 14:10] LABS: Appearance,Urine Clear (Clear); Bacteria,Urine Rare /hpf; Bilirubin,Urine Negative (Negative); Blood,Urine Trace (Negative); Color,Urine Yellow; Glucose,Urine (UA) Negative (Negative); Ketones,Urine Negative (Negative); Leukocyte Esterase,Urine Large (Negative); Mucus,Urine Rare /hpf; Nitrite,Urine Negative (Negative); PH, Urine 6.5 (5.0-8.0); Protein,Urine 2+ (Negative); RBC,Urine 7 /hpf (0-5); Specific Gravity,Urine 1.015 (1.001-1.035); Squamous Epithelial Cell,Urine 2 /hpf (0-4); Urobilinogen,Urine <2.0 mg/dL (<2.0); WBC,Urine 28 /hpf (0-5)
[2019-07-31] MEDS ORDERED: NALOXONE 0.4 MG/ML 1 ML VIAL IV PRN (14:31)
[2019-07-31] MEDS ORDERED: cefTRIAXone IN SWFI 1,000 MG/10 ML SYRINGE IVP STA (14:33)
[2019-07-31] MEDS ORDERED: IPRATROPIUM-ALBUTEROL 3 ML NEB INHALATION PRN (14:48)
[2019-07-31 17:15] LABS: Glucose,Whole Blood 83 mg/dL (75-99)
--- NOTE | 2019-07-31 20:19 | P.HPIM ---
History of Present Illness H&P Date: 07/31/19 Chief Complaint: Short of breath Chief Complaint: Shortness of breath History of presenting complaint: This is a pleasant 68-year-old patient of Dr. Mccoy. Resident of [facility]/ the [facility] . Has a legal guardian. Chronic stable medical conditions include CHF EF 50-60%, hypertension, hyperlipidemia, obstructive sleep apnea uses CPAP, chronic kidney disease stage III, anemia of kidney disease, moderate cognitive impairment.. Patient not the best of historians. Presents with worsening shortness of breath today. Slight cough. No fever no chills. Appetite is okay. Some wheezing. Found to be in atrial flutter uncontrolled. At her baseline uses a wheelchair and a walker Review of systems: GEN.: Tired EYES: None HEENT: None NECK: None RESPIRATORY: As above CARDIOVASCULAR: As above GASTROINTESTINAL: None GENITOURINARY: None MUSCULOSKELETAL: None LYMPHATICS: None HEMATOLOGICAL: None PSYCHIATRY: As above NEUROLOGICAL: Uses a wheelchair walker Past medical history to include: Atrial fibrillation, anemia of chronic disease, asthma, CHF EF 50-60%, hypertension, hyperlipidemia, obstructive sleep apnea uses CPAP, chronic kidney disease stage III, dementia, uses a wheelchair/walker Social history: No reported history of smoking or alcohol. Has a legal guardian. [facility] [address] Uses a wheelchair/walker Physical examination: VITAL SIGNS: 99.9, 130, 18, 124/84, 100% on 2 L GENERAL: Propped up in bed, tired short of breath EYES: Pupils equal. Conjunctiva normal. HEENT: External appearance of nose and ears normal, oral cavity grossly normal. NECK: JVD not raised; masses not palpable. HEART: Heart sounds irregular no edema. LUNGS: Respiratory rate increased; decreased breath sounds, prolonged expiration ABDOMEN: Soft, nontender, liver spleen not palpable, no masses palpable. PSYCH: Answering simple questions NEUROLOGICAL: Cranial nerves grossly intact; no facial asymmetry, power and sensation grossly intact. LYMPHATICS: No lymph nodes palpable in the axilla and neck INVESTIGATIONS, reviewed in the clinical context: White count 7.1 hemoglobin 9.2 platelets 207 potassium 5 creatinine 1.04 Troponin I 0.112 EKG tracing personally reviewed by me-atrial flutter rate uncontrolled Chest x-ray film personally reviewed by me-cardiomegaly Assessment: -Persistent atrial flutter-atrial fibrillation with rapid ventricular rate, POA, chronically on xarelto -Intermittent asthma with acute exacerbation, POA -Chronic medical debility uses a walker -Normocytic anemia of chronic kidney disease -chronic congestive heart failure from diastolic dysfunction EF 50-60% -Essential hypertension -Hyperlipidemia -Obstructive sleep apnea uses a CPAP -Chronic kidney disease stage 2 from nephrosclerosis -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 Bronchodilators. Also had Solu-Medrol. Home medications resumed. Care was discussed with the patient. Questions were answered. Past Medical History Past Medical History: Atrial Fibrillation, Asthma, Heart Failure, COPD, Dementia, Diabetes Mellitus, Hyperlipidemia, Hypertension, Renal Disease, Sleep Apnea/CPAP/BIPAP Additional Past Medical History / Comment(s): Morbid obesity, obstructive sleep apnea maintained on CPAP , uti, anemia, kidney cyst History of Any Multi-Drug Resistant Organisms: MRSA Date of last positivie culture/infection: 05/13/19 MDRO Source:: SPUTUM Past Surgical History: Breast Surgery, Hernia Repair Additional Past Surgical History / Comment(s): cataracts, panniculectomy and I&D of abdominal mass Past Anesthesia/Blood Transfusion Reactions: No Reported Reaction Past Psychological History: Anxiety Additional Psychological History / Comment(s): pt currently resides at [facility]. Smoking Status: Never smoker Past Alcohol Use History: None Reported Past Drug Use History: None Reported - Past Family History Mother Family Medical History: CVA/TIA Father Additional Family Medical History / Comment(s): WAS INJURED IN [facility], also had hx tb but from complications of his injuries Brother(s) Additional Family Medical History / Comment(s): at age 2 years 10months tb Medications and Allergies Home Medications Medication Instructions Recorded Confirmed Type Cinacalcet [Sensipar] 30 mg PO DAILY 09/18/17 07/31/19 History Rivaroxaban [Xarelto] 15 mg PO HS 09/18/17 07/31/19 History Sennosides-Docusate Sodium 1 tab PO BID 09/18/17 07/31/19 History [Senokot-S] Famotidine [Pepcid] 20 mg PO DAILY 05/10/19 07/31/19 History Atorvastatin [Lipitor] 40 mg PO HS tab 05/18/19 07/31/19 Rx Diltiazem Cd [Cardizem CD] 240 mg PO DAILY cap.er.24h 05/18/19 07/31/19 Rx Ipratropium-Albuterol Nebulize 3 ml INHALATION RT-QID ml 05/18/19 07/31/19 Rx [Duoneb 0.5 mg-3 mg/3 ml Soln] Losartan [Cozaar] 25 mg PO DAILY tab 05/18/19 07/31/19 Rx Ferrous Sulfate [Feosol] 325 mg PO BID 07/31/19 07/31/19 History Guaifenesin/Dextromethorphan 15 ml PO Q6H PRN 07/31/19 07/31/19 History [Robitussin Cough-Chest Dm Liq] HYDROcodone/APAP 5-325MG [[place] 2 tab PO Q12H 07/31/19 07/31/19 History 5-325] LORazepam [Ativan] 0.5 mg PO Q12H 07/31/19 07/31/19 History Polycal Powder 17 gm PO HS 07/31/19 07/31/19 History Sertraline [Zoloft] 150 mg PO DAILY 07/31/19 07/31/19 History Allergies Allergy/AdvReac Type Severity Reaction Status Date / Time adhesive Allergy Rash/Hives Verified 07/31/19 16:54 codeine Allergy Rash/Hives Verified 07/31/19 16:54 Physical Exam Vitals: Vital Signs Temp Pulse Pulse Resp BP BP Pulse Ox 07/31/19 16:00 88 18 07/31/19 15:22 98.3 F 86 18 113/62 100 07/31/19 14:50 98.5 F 88 16 127/58 99 07/31/19 13:57 128 H 18 133/86 100 07/31/19 12:06 99.9 F H 130 H 18 124/84 100 Intake and Output 07/31/19 07/31/19 07/31/19 06:59 14:59 22:59 Intake Total 240 Output Total 200 Balance -200 240 Intake: Oral 240 Output: Urine 200 Other: # Bowel Movements 1 Weight 77.111 kg Results CBC & Chem 7: 07/31/19 12:20 07/31/19 12:20 Labs: Abnormal Lab Results - Last 24 Hours (Table) 07/31/19 07/31/19 07/31/19 Range/Units 12:20 12:20 12:20 RBC 3.22 L (3.80-5.40) m/uL Hgb 9.2 L (11.4-16.0) gm/dL Hct 29.1 L (34.0-46.0) % BUN 30 H (7-17) mg/dL Plasma Lactic Acid Russ <0.5 L (0.7-2.0) mmol/L Total Bilirubin 0.1 L (0.2-1.3) mg/dL Troponin I (0.000-0.034) ng/mL Total Protein 6.0 L (6.3-8.2) g/dL Albumin 3.3 L (3.5-5.0) g/dL Urine Protein (Negative) Urine Blood (Negative) Ur Leukocyte Esterase (Negative) Urine RBC (0-5) /hpf Urine WBC (0-5) /hpf Urine Bacteria (None) /hpf Urine Mucus (None) /hpf 07/31/19 07/31/19 Range/Units 12:20 13:48 RBC (3.80-5.40) m/uL Hgb (11.4-16.0) gm/dL Hct (34.0-46.0) % BUN (7-17) mg/dL Plasma Lactic Acid Russ (0.7-2.0) mmol/L Total Bilirubin (0.2-1.3) mg/dL Troponin I 0.112 H* (0.000-0.034) ng/mL Total Protein (6.3-8.2) g/dL Albumin (3.5-5.0) g/dL Urine Protein 2+ H (Negative) Urine Blood Trace H (Negative) Ur Leukocyte Esterase Large H (Negative) Urine RBC 7 H (0-5) /hpf Urine WBC 28 H (0-5) /hpf Urine Bacteria Rare H (None) /hpf Urine Mucus Rare H (None) /hpf Thrombosis Risk Factor Assmnt - Choose All That Apply Any of the Below Risk Factors Present?: No Other Risk Factors: Yes Each Risk Factor Represents 2 Points: Age 61-74 years Other congenital or acquired thrombophilia - If yes, enter type in comment: No Thrombosis Risk Factor Assessment Total Risk Factor Score: 2 Thrombosis Risk Factor Assessment Level: Low Risk
[2019-07-31] MEDS: IPRATROPIUM-ALBUTEROL 3 ML NEB INHALATION SCH (20:53)
[2019-07-31] MEDS: FAMOTIDINE 20 MG TAB PO SCH (21:15)
[2019-07-31] MEDS: HYDROcodone/APAP 5-325MG 1 EACH TAB PO SCH (21:16)
[2019-07-31] MEDS: SENNOSIDES-DOCUSATE SODIUM 1 EACH TAB PO SCH (21:17)
[2019-07-31] MEDS: LORazepam 0.5 MG TAB PO SCH (21:17)
[2019-07-31] MEDS: FERROUS SULFATE 325 MG TAB PO SCH (21:17)
[2019-07-31] MEDS: RIVAROXABAN 15 MG TAB PO SCH (21:17)
[2019-07-31] MEDS: POLYCAL PO SCH (21:18)
[2019-07-31] MEDS: ATORVASTATIN 40 MG TAB PO SCH (21:18)
[2019-08-01] MEDS: LORazepam 0.5 MG TAB PO SCH ×2 (07:01→20:26)
[2019-08-01] MEDS: IPRATROPIUM-ALBUTEROL 3 ML NEB INHALATION SCH ×4 (07:03→19:21)
[2019-08-01] MEDS: SENNOSIDES-DOCUSATE SODIUM 1 EACH TAB PO SCH ×2 (08:48→20:26)
[2019-08-01] MEDS: HYDROcodone/APAP 5-325MG 1 EACH TAB PO SCH ×2 (08:48→20:25)
[2019-08-01] MEDS: SERTRALINE 50 MG TAB PO SCH (08:48)
[2019-08-01] MEDS: FERROUS SULFATE 325 MG TAB PO SCH ×2 (08:49→20:26)
[2019-08-01] MEDS: LOSARTAN 25 MG TAB PO SCH (08:49)
[2019-08-01] MEDS: CINACALCET 30 MG TAB PO SCH (08:49)
[2019-08-01] MEDS: FAMOTIDINE 20 MG TAB PO SCH ×2 (08:49→20:26)
[2019-08-01] MEDS: DILTIAZEM CD 240 MG CAP.ER.24H PO SCH (08:50)
--- NOTE | 2019-08-01 11:40 | CONS ---
CONSULTATION Eleni is a 68-year-old lady who is admitted to hospital with atypical atrial flutter with rapid ventricular rate. Cardiology has been consulted for the pain. Patient has significant hearing impairment and it was somewhat difficult to communicate with her. She currently lives in an extended care facility in [place]. Has history of hypertension, dyslipidemia, chronic kidney failure, obstructive sleep apnea, some cognitive impairment. She comes in complaining of shortness of breath and was fund to be in atrial flutter. At the time of my evaluation, her heart rate is better controlled. She is hemodynamically stable. She had one set of troponin that is elevated. Patient's history is also significant for COPD and dyslipidemia. She denies any prior history of angioplasty. The patient takes Xarelto for anticoagulation. The intravenous Cardizem that the patient was on have been stopped. She is on Cardizem CD at home that have been resumed. Her chest x-ray shows mild cardiomegaly without any evidence of congestive heart failure. PAST MEDICAL HISTORY: Significant for atrial fibrillation flutter, COPD, hypertension, dyslipidemia, obstructive sleep apnea, chronic renal insufficiency, and cognitive impairment. MEDICATIONS: At home include Zoloft, Senokot, Xarelto, Cozaar, DuoNeb, iron, Pepcid, Cardizem, Sensipar, and Lipitor. ALLERGIC: To ADHESIVE and CODEINE. FAMILY HISTORY: Negative. SOCIAL HISTORY: She denies smoking, EtOH abuse or drug abuse. REVIEW OF SYSTEMS: HEENT: Unremarkable. CARDIAC: As described above. RESPIRATORY: As described. GI: Negative. GENITOURINARY: Negative. ALLERGY/IMMUNOLOGY: Negative. SKIN: Negative. MUSCULOSKELETAL: Significant for arthritis. PSYCHOSOCIAL: Negative. ENDOCRINE: Negative. CONSTITUTIONAL: Negative. ONCOLOGICAL: Negative. LAMP ASSEMBLER: Negative. Rest of the system review is not relevant. PHYSICAL EXAM: Patient is afebrile. Heart rate is 87 beats per minute. Blood pressure is 101/52, respiratory rate is 15, O2 saturation is 99% on 2 L. There is no jugular venous distention. Carotid upstroke is normal. There is no bruit. Chest exam reveals good air entry bilaterally. Heart exam reveals first and second heart sounds. No irregular rhythm. No murmur. Abdomen is soft. Exam of the extremities did not reveal any edema. Peripheral pulses are felt. ASSESSMENT: 1. Atypical atrial flutter with rapid ventricular rate. 2. Shortness of breath of unclear etiology. 3. History of hypertension. 4. History of dyslipidemia. 5. Chronic obstructive pulmonary disease. PLAN: I am going to control the heart rate with Cardizem CD. Continue Xarelto that she is on, obtain a 2D echo to assess LV function and to rule out pulmonary hypertension. This patient's clinical presentation is not consistent with a diagnosis of congestive heart failure. MMODL / IJN: [id number] /
[2019-08-01 11:50] LABS: Ferritin 17.3 ng/mL (10.0-291.0)
--- NOTE | 2019-08-01 18:40 | P.PN ---
Progress Note - Text Progress Note Date: 08/01/19 Chief Complaint: Short of breath History of presenting complaint: This is a pleasant 68-year-old patient of Dr. Mccoy. Resident of [facility] [place] . Has a legal guardian. Chronic stable medical conditions include CHF EF 50-60%, hypertension, hyperlipidemia, obstructive sleep apnea uses CPAP, chronic kidney disease stage III, anemia of kidney disease, moderate cognitive impairment.. Patient not the best of historians. Presents with worsening shortness of breath today. Slight cough. No fever no chills. Appetite is okay. Some wheezing. Found to be in atrial flutter uncontrolled. At her baseline uses a wheelchair and a walker Admitted with-atrial flutter uncontrolled and asthma exacerbation. Also UTI. Was started on IV Cardizem in the ER and also bronchodilators.. On IV ceftriaxone. Today-. Remains in atrial flutter. Heart rate uncontrolled. Running about 120s. Started on Cardizem CD by cardiology. Breathing better. Review of systems: Was done for constitutional, cardiovascular, GI, pulmonary. relevant finding as above Active Medications Acetaminophen (Tylenol Tab) 1,000 mg PO Q6HR PRN PRN Reason: Fever>101 Hydrocodone Bitart/Acetaminophen ([place] 5-325) 2 each PO Q12H [facility] Last Admin: 08/01/19 08:48 Dose: 2 each Documented by: Albuterol/Ipratropium (Duoneb 0.5 Mg-3 Mg/3 Ml Soln) 3 ml INHALATION RT-QID PRN PRN Reason: Shortness Of Breath Or Wheezing Albuterol/Ipratropium (Duoneb 0.5 Mg-3 Mg/3 Ml Soln) 3 ml INHALATION RT-QID [facility] Last Admin: 08/01/19 15:27 Dose: 3 ml Documented by: Atorvastatin Calcium (Lipitor) 40 mg PO HS [facility] Last Admin: 07/31/19 21:18 Dose: 40 mg Documented by: Benzocaine/Menthol (Cepacol Lozenge) 1 each MUCOUS MEM Q4HR PRN PRN Reason: Cough Cinacalcet (Sensipar) 30 mg PO DAILY [facility] Last Admin: 08/01/19 08:49 Dose: 30 mg Documented by: Diltiazem HCl (Cardizem Cd) 240 mg PO DAILY [facility] Last Admin: 08/01/19 08:50 Dose: 240 mg Documented by: Famotidine (Pepcid) 20 mg PO BID [facility] Last Admin: 08/01/19 08:49 Dose: 20 mg Documented by: Ferrous Sulfate (Feosol) 325 mg PO BID [facility] Last Admin: 08/01/19 08:49 Dose: 325 mg Documented by: Ceftriaxone Sodium 1 gm/ (Sodium Chloride) 50 mls @ 100 mls/hr IVPB Q24HR [facility] Last Admin: 08/01/19 08:47 Dose: 100 mls/hr Documented by: Lorazepam (Ativan) 0.5 mg PO Q12H [facility] Last Admin: 08/01/19 07:01 Dose: 0.5 mg Documented by: Losartan Potassium (Cozaar) 25 mg PO DAILY [facility] Last Admin: 08/01/19 08:49 Dose: 25 mg Documented by: Naloxone HCl (Narcan) 0.2 mg IV Q2M PRN PRN Reason: Opioid Reversal Non-Formulary Medication (Polycal Powder) 17 gm PO [facility] Last Admin: 07/31/19 21:18 Dose: Not Given Documented by: Rivaroxaban (Xarelto) 15 mg PO [facility] Last Admin: 07/31/19 21:17 Dose: 15 mg Documented by: Senna/Docusate Sodium (Senokot-S) 1 each PO BID [facility] Last Admin: 08/01/19 08:48 Dose: 1 each Documented by: Sertraline HCl (Zoloft) 150 mg PO DAILY [facility] Last Admin: 08/01/19 08:48 Dose: 150 mg Documented by: Physical examination: VITAL SIGNS: 97, 1:30, 18, 110/55, 98% on 2 L GENERAL: Laying in bed, awake EYES: Pupils equal. Conjunctiva normal. HEENT: External appearance of nose and ears normal, oral cavity grossly normal. NECK: JVD not raised; masses not palpable. HEART: Heart sounds irregular no edema. LUNGS: Respiratory rate increased; improved air entry ABDOMEN: Soft, nontender, liver spleen not palpable, no masses palpable. PSYCH: Answering simple questions INVESTIGATIONS, reviewed in the clinical context: White count 7.1 hemoglobin 9.2 platelets 207 potassium 5 creatinine 1.04 Troponin I 0.112 EKG tracing personally reviewed by me-atrial flutter rate uncontrolled Chest x-ray film personally reviewed by me-cardiomegaly Assessment: -Persistent atrial flutter-atrial fibrillation with rapid ventricular rate, POA, chronically on xarelto-remains uncontrolled -Intermittent asthma with acute exacerbation, POA-improving -Chronic medical debility uses a walker -Normocytic anemia of chronic kidney disease -chronic congestive heart failure from diastolic dysfunction EF 50-60% -Essential hypertension -Hyperlipidemia -Obstructive sleep apnea uses a CPAP -Chronic kidney disease stage 2 from nephrosclerosis -Moderate 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 -Patient has a legal guardians Plan: Patient started on Cardizem CD 240 mg morning. Heart rate still uncontrolled. We'll follow. Continue with IV ceftriaxone. Cultures are pending.
[2019-08-01] MEDS: RIVAROXABAN 15 MG TAB PO SCH (20:26)
[2019-08-01] MEDS: ATORVASTATIN 40 MG TAB PO SCH (20:26)
[2019-08-01] MEDS: POLYCAL PO SCH (20:32)
[2019-08-02] MEDS: LORazepam 0.5 MG TAB PO SCH ×2 (06:46→18:49)
[2019-08-02] MEDS: IPRATROPIUM-ALBUTEROL 3 ML NEB INHALATION SCH ×4 (08:36→20:01)
[2019-08-02] MEDS: LOSARTAN 25 MG TAB PO SCH (08:59)
[2019-08-02] MEDS: SENNOSIDES-DOCUSATE SODIUM 1 EACH TAB PO SCH ×2 (08:59→20:40)
[2019-08-02] MEDS: HYDROcodone/APAP 5-325MG 1 EACH TAB PO SCH ×2 (08:59→20:40)
[2019-08-02] MEDS: CINACALCET 30 MG TAB PO SCH (08:59)
[2019-08-02] MEDS: FAMOTIDINE 20 MG TAB PO SCH (08:59)
[2019-08-02] MEDS: SERTRALINE 50 MG TAB PO SCH (08:59)
[2019-08-02] MEDS: FERROUS SULFATE 325 MG TAB PO SCH ×2 (08:59→20:39)
[2019-08-02] MEDS: DILTIAZEM CD 240 MG CAP.ER.24H PO SCH (08:59)
[2019-08-02] MEDS: BENZOCAINE/MENTHOL LOZENG 1 EACH LOZENGE MUCOUS MEM PRN (09:04)
--- NOTE | 2019-08-02 10:49 | ECHOF ---
Referral Reason:LV fxn, r/o pulmonary htn MEASUREMENTS -------- HEIGHT: 154.9 cm WEIGHT: 77.6 kg BP: RVIDd: 2.9 cm (< 3.3) IVSd: 1.6 cm (0.6 - 1.1) LVIDd: 4.3 cm (3.9 - 5.3) LVPWd: 1.4 cm (0.6 - 1.1) IVSs: 1.9 cm LVIDs: 2.7 cm LVPWs: 2.0 cm LA Diam: 4.5 cm (2.7 - 3.8) LAESV Index (A-L): 34.45 ml/m Ao Diam: 2.9 cm (2.0 - 3.7) AV Cusp: 1.4 cm (1.5 - 2.6) MV EXCURSION: 19.089 mm (> 18.000) MV EF SLOPE: 226 mm/s (70 - 150) EPSS: 0.7 cm AV maxP.62 mmHg AV meanP.93 mmHg RAP: 5.00 mmHg RVSP: 39.65 mmHg FINDINGS -------- Atrial fibrillation. This was a technically adequate study. The left ventricular size is normal. There is moderate concentric left ventricular hypertrophy. O verall left ventricular systolic function is moderately impaired with, an EF between 35 - 40 %. The right ventricle is normal in size. LA is moderately dilated 34-39 ml/m2 The right atrium is normal in size. Interatrial and interventricular septum intact. There is mild aortic valve sclerosis. There is mild aortic regurgitation. There is mild aortic st enosis present. Peak/mean gradient across the Aortic Valve is 24.62mmHg / 11.93mmHg. The mitral valve leaflets are mildly thickened. Mild mitral annular calcification present. Modera te mitral regurgitation is present. Mild tricuspid regurgitation present. There is mild pulmonary hypertension. The right ventricular systolic pressure, as measured by Doppler, is 39.65mmHg. There is no pulmonic regurgitation present. The aortic root size is normal. Normal inferior vena cava with normal inspiratory collapse consistent with estimated right atrial pre ssure of 5 mmHg. There is no pericardial effusion. CONCLUSIONS -------- 1. Atrial fibrillation. 2. This was a technically adequate study. 3. The left ventricular size is normal. 4. There is moderate concentric left ventricular hypertrophy. 5. Overall left ventricular systolic function is moderately impaired with, an EF between 35 - 40 %. 6. The right ventricle is normal in size. 7. LA is moderately dilated 34-39 ml/m2 8. The right atrium is normal in size. 9. Interatrial and interventricular septum intact. 10. There is mild aortic valve sclerosis. 11. There is mild aortic regurgitation. 12. There is mild aortic stenosis present. 13. Peak/mean gradient across the Aortic Valve is 24.62mmHg / 11.93mmHg. 14. The mitral valve leaflets are mildly thickened. 15. Mild mitral annular calcification present. 16. Moderate mitral regurgitation is present. 17. Mild tricuspid regurgitation present. 18. There is mild pulmonary hypertension. 19. The right ventricular systolic pressure, as measured by Doppler, is 39.65mmHg. 20. There is no pulmonic regurgitation present. 21. The aortic root size is normal. 22. Normal inferior vena cava with normal inspiratory collapse consistent with estimated right atrial pressure of 5 mmHg. 23. There is no pericardial effusion. MANUFACTURING TEACHER: Aliya Cruz RDCS
[2019-08-02 11:55] LABS: Glucose,Whole Blood 96 mg/dL (75-99)
[2019-08-02] MEDS: METOPROLOL TARTRATE 25 MG TAB PO SCH ×2 (14:03→20:40)
--- NOTE | 2019-08-02 16:15 | P.PN ---
Subjective Progress Note Date: 08/02/19 This is a 68-year-old female patient admitted to the hospital with typical atrial flutter with rapid ventricular response as well as associated UTI. Patient also has a history of hypertension, hyperlipidemia, chronic kidney failure, COPD, sleep apnea apnea and mild cognitive impairment. Patient was seen in consultation yesterday by Dr. Fonseca, this morning she continues to be in an atrial flutter with a heart rate in the 120 to 130 range. We will discontinue the Cardizem and start the patient on a beta fauzia. An echocardiogram with Doppler study was performed which revealed an ejection fraction of 35-40%. Moderate mitral regurgitation. Objective - Vital Signs Vital signs: Vital Signs Temp 98.2 F 08/02/19 11:00 Pulse 84 08/02/19 16:05 Resp 16 08/02/19 16:05 BP 107/55 08/02/19 11:00 Pulse Ox 92 L 08/02/19 11:00 Intake & Output 08/01/19 08/02/19 08/02/19 18:59 06:59 18:59 Intake Total 1052 260 Output Total 1850 Balance 1052 -1850 260 Weight 77.6 kg Intake: IV 20 Invasive Line 2 20 Intake, IV Titration 100 Amount cefTRIAXone 1 gm In 100 Sodium Chloride 0.9% 50 ml @ 100 mls/hr IVPB Q24HR [facility] Rx#:[id number] Oral 952 240 Output: Urine 1850 Other: Voiding Method Bedpan Bedside Commode # Voids 2 3 0 # Bowel Movements 0 - Exam PHYSICAL EXAMINATION: GENERAL: 68-year-old female in no acute distress at the time of my examination HEENT: Head is atraumatic, normocephalic. Pupils equal, round. Sclera anicteric. Conjunctiva are clear. Mucous membranes of the mouth are moist. Neck is supple. There is no elevated jugular venous pressure. No carotid bruit is heard. HEART EXAMINATION: S1 and S2 irregularly irregular a systolic murmur is heard CHEST EXAMINATION: Lungs are clear to auscultation and precussion. No chest wall tenderness is noted on palpation or with deep breathing. ABDOMEN: Soft, obese, nontender. Bowel sounds are heard. No organomegaly noted. EXTREMITIES:1+ peripheral pulses with evidence of peripheral edema and no calf tenderness noted. NEUROLOGIC patient is awake, alert and oriented 3 . . - Labs CBC & Chem 7: 07/31/19 12:20 07/31/19 12:20 Labs: Microbiology - Last 24 Hours (Table) 07/31/19 13:30 Blood Culture - Preliminary Blood No Growth after 48 hours Assessment and Plan Plan: Assessment and plan #1 typical atrial flutter with rapid ventricular response #2 hypertension #3 hyperlipidemia #4 COPD #5 sleep apnea #6 nonischemic cardiomyopathy with documented ejection fraction of 35-40% Plan We will discontinue the by mouth Cardizem and start the patient on beta fauzia 25 mg one tablet by mouth twice a day. Continue Cozaar, Xarelto, consider the addition of Aldactone if the potassium level comes down. Further recommendations to follow. DNP note has been reviewed, I agree with a documented findings and plan of care. Patient was seen and examined.
[2019-08-02 16:49] LABS: Glucose,Whole Blood 125 mg/dL (75-99)
--- NOTE | 2019-08-02 19:57 | P.PN ---
Progress Note - Text Progress Note Date: 08/02/19 Chief Complaint: Short of breath History of presenting complaint: This is a pleasant 68-year-old patient of Dr. Mccoy. Resident of [facility] [place] . Has a legal guardian. Chronic stable medical conditions include CHF EF 50-60%, hypertension, hyperlipidemia, obstructive sleep apnea uses CPAP, chronic kidney disease stage III, anemia of kidney disease, moderate cognitive impairment.. Patient not the best of historians. Presents with worsening shortness of breath today. Slight cough. No fever no chills. Appetite is okay. Some wheezing. Found to be in atrial flutter uncontrolled. At her baseline uses a wheelchair and a walker Admitted with-atrial flutter uncontrolled and asthma exacerbation. Also UTI. Was started on IV Cardizem in the ER and also bronchodilators.. On IV ceftriaxone. Today-. Heart rate still up. Feeling better. Did tolerate some diet. Appears [place] for. Laying in bed. Review of systems: Was done for constitutional, cardiovascular, GI, pulmonary. relevant finding as above Active Medications Acetaminophen (Tylenol Tab) 1,000 mg PO Q6HR PRN PRN Reason: Fever>101 Hydrocodone Bitart/Acetaminophen ([place] 5-325) 2 each PO Q12H [facility] Last Admin: 08/02/19 08:59 Dose: 2 each Documented by: Albuterol/Ipratropium (Duoneb 0.5 Mg-3 Mg/3 Ml Soln) 3 ml INHALATION RT-QID PRN PRN Reason: Shortness Of Breath Or Wheezing Albuterol/Ipratropium (Duoneb 0.5 Mg-3 Mg/3 Ml Soln) 3 ml INHALATION RT-QID [facility] Last Admin: 08/02/19 16:05 Dose: 3 ml Documented by: Atorvastatin Calcium (Lipitor) 40 mg PO HS [facility] Last Admin: 08/01/19 20:26 Dose: 40 mg Documented by: Benzocaine/Menthol (Cepacol Lozenge) 1 each MUCOUS MEM Q4HR PRN PRN Reason: Cough Last Admin: 08/02/19 09:04 Dose: 1 each Documented by: Cinacalcet (Sensipar) 30 mg PO DAILY [facility] Last Admin: 08/02/19 08:59 Dose: 30 mg Documented by: Famotidine (Pepcid) 20 mg PO DAILY [facility] Ferrous Sulfate (Feosol) 325 mg PO BID [facility] Last Admin: 08/02/19 08:59 Dose: 325 mg Documented by: Ceftriaxone Sodium 1 gm/ (Sodium Chloride) 50 mls @ 100 mls/hr IVPB Q24HR [facility] Last Admin: 08/02/19 08:59 Dose: 100 mls/hr Documented by: Lorazepam (Ativan) 0.5 mg PO Q12H [facility] Last Admin: 08/02/19 18:49 Dose: 0.5 mg Documented by: Losartan Potassium (Cozaar) 25 mg PO DAILY [facility] Last Admin: 08/02/19 08:59 Dose: 25 mg Documented by: Metoprolol Tartrate (Lopressor) 25 mg PO BID [facility] Last Admin: 08/02/19 14:03 Dose: 25 mg Documented by: Naloxone HCl (Narcan) 0.2 mg IV Q2M PRN PRN Reason: Opioid Reversal Non-Formulary Medication (Polycal Powder) 17 gm PO [facility] Last Admin: 08/01/19 20:32 Dose: Not Given Documented by: Rivaroxaban (Xarelto) 15 mg PO [facility] Last Admin: 08/01/19 20:26 Dose: 15 mg Documented by: Senna/Docusate Sodium (Senokot-S) 1 each PO BID [facility] Last Admin: 08/02/19 08:59 Dose: 1 each Documented by: Sertraline HCl (Zoloft) 150 mg PO DAILY [facility] Last Admin: 08/02/19 08:59 Dose: 150 mg Documented by: Physical examination: VITAL SIGNS: Medicine 0.3, 66, 16, 105/72, 93% room air GENERAL: Laying in bed, awake EYES: Pupils equal. Conjunctiva normal. HEENT: External appearance of nose and ears normal, oral cavity grossly normal. NECK: JVD not raised; masses not palpable. HEART: Heart sounds irregular no edema. LUNGS: Respiratory rate increased; improved air entry ABDOMEN: Soft, nontender, liver spleen not palpable, no masses palpable. PSYCH: Answering simple questions INVESTIGATIONS, reviewed in the clinical context: Urine culture pending White count 7.1 hemoglobin 9.2 platelets 207 potassium 5 creatinine 1.04 Troponin I 0.112 EKG tracing personally reviewed by me-atrial flutter rate uncontrolled Chest x-ray film personally reviewed by me-cardiomegaly COVID-19 PCR-not detected 2-D co-EF 35-40%, moderate concentric LVH, moderate mitral regurgitation Assessment: -Persistent atrial flutter-atrial fibrillation with rapid ventricular rate, POA, chronically on xarelto-remains uncontrolled this morning -Intermittent asthma with acute exacerbation, POA-improving -Chronic medical debility uses a walker -Normocytic anemia of chronic kidney disease -chronic congestive heart failure from systolic dysfunction EF 35/40% -Hypertensive heart disease -Moderate mitral regurgitation -Essential hypertension -Hyperlipidemia -Obstructive sleep apnea uses a CPAP -Chronic kidney disease stage 2 from nephrosclerosis -Moderate 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 -Patient has a legal guardians Plan: Per cardiology earlier today Cardizem was discontinued patient's out of Lopressor 25 mg twice a day. Urine culture pending
[2019-08-02 20:13] LABS: Glucose,Whole Blood 127 mg/dL (75-99)
[2019-08-02] MEDS: ATORVASTATIN 40 MG TAB PO SCH (20:39)
[2019-08-02] MEDS: RIVAROXABAN 15 MG TAB PO SCH (20:40)
[2019-08-02] MEDS: POLYCAL PO SCH (20:42)
[2019-08-03] MEDS: BENZOCAINE/MENTHOL LOZENG 1 EACH LOZENGE MUCOUS MEM PRN (01:10)
[2019-08-03] MEDS: LORazepam 0.5 MG TAB PO SCH ×2 (06:24→19:24)
[2019-08-03] MEDS: IPRATROPIUM-ALBUTEROL 3 ML NEB INHALATION SCH ×4 (08:18→20:55)
[2019-08-03] MEDS: SERTRALINE 50 MG TAB PO SCH (09:34)
[2019-08-03] MEDS: FAMOTIDINE 20 MG TAB PO SCH (09:34)
[2019-08-03] MEDS: CINACALCET 30 MG TAB PO SCH (09:34)
[2019-08-03] MEDS: SENNOSIDES-DOCUSATE SODIUM 1 EACH TAB PO SCH ×2 (09:34→19:25)
[2019-08-03] MEDS: FERROUS SULFATE 325 MG TAB PO SCH ×2 (09:35→19:25)
[2019-08-03] MEDS: HYDROcodone/APAP 5-325MG 1 EACH TAB PO SCH ×2 (09:35→19:25)
[2019-08-03] MEDS: METOPROLOL TARTRATE 25 MG TAB PO SCH ×2 (09:35→19:25)
[2019-08-03] MEDS: LOSARTAN 25 MG TAB PO SCH (09:35)
[2019-08-03 11:49] LABS: Glucose,Whole Blood 109 mg/dL (75-99)
--- NOTE | 2019-08-03 12:04 | P.PN ---
Subjective Progress Note Date: 08/03/19 This is a 68-year-old female patient admitted to the hospital with typical atrial flutter with rapid ventricular response as well as associated UTI. Patient also has a history of hypertension, hyperlipidemia, chronic kidney failure, COPD, sleep apnea apnea and mild cognitive impairment. Patient was seen in consultation yesterday by Dr. Fonseca, this morning she continues to be in an atrial flutter with a heart rate in the 120 to 130 range. We will discontinue the Cardizem and start the patient on a beta fauzia. An echocardiogram with Doppler study was performed which revealed an ejection fraction of 35-40%. Moderate mitral regurgitation. 08/03/2019 Patient was seen and examined this morning, she states that she felt more tired today, but overall feels well. She did breakfast this morning. Denies any palpitations, breathing is stable. She continues to be in atrial flutter this morning with a heart rate in the 70s. Blood pressure 110/60. Sodium 139, potassium 5.0, BUN 49, creatinine 1.6. Objective - Vital Signs Vital signs: Vital Signs Temp 98.3 F 08/03/19 08:00 Pulse 74 08/03/19 11:33 Resp 18 08/03/19 08:00 BP 110/66 08/03/19 08:00 Pulse Ox 99 08/03/19 08:00 Intake & Output 08/02/19 08/03/19 08/03/19 18:59 06:59 18:59 Intake Total 920 310 Output Total 1150 Balance -230 310 Weight 80.5 kg Intake: IV 80 10 Invasive Line 2 30 10 cefTRIAXone 1 gm In 50 Sodium Chloride 0.9% 50 ml @ 100 mls/hr IVPB Q24HR [facility] Rx#:[id number] Oral 840 300 Output: Urine 1150 Other: Voiding Method Bedside Commode Bedside Commode Bedside Commode Diaper # Voids 0 1 # Bowel Movements 0 - Exam PHYSICAL EXAMINATION: GENERAL: 68-year-old female in no acute distress at the time of my examination HEENT: Head is atraumatic, normocephalic. Pupils equal, round. Sclera anicteric. Conjunctiva are clear. Mucous membranes of the mouth are moist. Neck is supple. There is no elevated jugular venous pressure. No carotid bruit is heard. HEART EXAMINATION: S1 and S2 irregularly irregular a systolic murmur is heard CHEST EXAMINATION: Lungs are clear to auscultation and precussion. No chest wall tenderness is noted on palpation or with deep breathing. ABDOMEN: Soft, obese, nontender. Bowel sounds are heard. No organomegaly noted. EXTREMITIES:1+ peripheral pulses with evidence of peripheral edema and no calf tenderness noted. NEUROLOGIC patient is awake, alert and oriented 3 . . - Labs CBC & Chem 7: 07/31/19 12:20 08/03/19 07:31 Labs: Abnormal Lab Results - Last 24 Hours (Table) 08/02/19 08/02/19 08/03/19 Range/Units 16:36 20:12 07:31 BUN 49 H (7-17) mg/dL Creatinine 1.66 H (0.52-1.04) mg/dL POC Glucose (mg/dL) 125 H 127 H (75-99) mg/dL Calcium 8.0 L (8.4-10.2) mg/dL 08/03/19 Range/Units 11:46 BUN (7-17) mg/dL Creatinine (0.52-1.04) mg/dL POC Glucose (mg/dL) 109 H (75-99) mg/dL Calcium (8.4-10.2) mg/dL Microbiology - Last 24 Hours (Table) 07/31/19 13:48 Urine Culture - Final Urine,Voided 07/31/19 13:30 Blood Culture - Preliminary Blood No Growth after 48 hours Assessment and Plan Plan: Assessment and plan #1 typical atrial flutter with rapid ventricular response #2 hypertension #3 hyperlipidemia #4 COPD #5 sleep apnea #6 nonischemic cardiomyopathy with documented ejection fraction of 35-40% Plan From cardiology's perspective, we'll continue the patient on her current medications. We will monitor the kidney function closely. She is not currently on Aldactone because of abnormal renal function and a potassium of 5.0. Stable for discharge from cardiology's perspective. DNP note has been reviewed, I agree with a documented findings and plan of care. Patient was seen and examined.
[2019-08-03 16:56] LABS: Glucose,Whole Blood 125 mg/dL (75-99)
[2019-08-03] MEDS: RIVAROXABAN 15 MG TAB PO SCH (19:25)
[2019-08-03] MEDS: ATORVASTATIN 40 MG TAB PO SCH (19:25)
[2019-08-03] MEDS: POLYCAL PO SCH (19:28)
[2019-08-03 20:15] LABS: Glucose,Whole Blood 153 mg/dL (75-99)
--- NOTE | 2019-08-03 20:26 | P.PN ---
Progress Note - Text Progress Note Date: 08/03/19 Chief Complaint: Short of breath History of presenting complaint: This is a pleasant 68-year-old patient of Dr. Mccoy. [facility] [place] . Has a legal guardian. Chronic stable medical conditions include CHF EF 50-60%, hypertension, hyperlipidemia, obstructive sleep apnea uses CPAP, chronic kidney disease stage III, anemia of kidney disease, moderate cognitive impairment.. Patient not the best of historians. Presents with worsening shortness of breath today. Slight cough. No fever no chills. Appetite is okay. Some wheezing. Found to be in atrial flutter uncontrolled. At her baseline uses a wheelchair and a walker Admitted with-atrial flutter uncontrolled and asthma exacerbation. Also UTI. Was started on IV Cardizem in the ER and also bronchodilators.. On IV ceftriaxone. Today-. Heart rate was reportedly up this morning. Otherwise patient is feeling well. Starting a diet. Otherwise comfortable. Review of systems: Was done for constitutional, cardiovascular, GI, pulmonary. relevant finding as above Active Medications Acetaminophen (Tylenol Tab) 1,000 mg PO Q6HR PRN PRN Reason: Fever>101 Hydrocodone Bitart/Acetaminophen ([place] 5-325) 2 each PO Q12H [facility] Last Admin: 08/03/19 19:25 Dose: 2 each Documented by: Albuterol/Ipratropium (Duoneb 0.5 Mg-3 Mg/3 Ml Soln) 3 ml INHALATION RT-QID PRN PRN Reason: Shortness Of Breath Or Wheezing Albuterol/Ipratropium (Duoneb 0.5 Mg-3 Mg/3 Ml Soln) 3 ml INHALATION RT-QID [place] Last Admin: 08/03/19 16:03 Dose: 3 ml Documented by: Atorvastatin Calcium (Lipitor) 40 mg PO HS [facility] Last Admin: 08/03/19 19:25 Dose: 40 mg Documented by: Benzocaine/Menthol (Cepacol Lozenge) 1 each MUCOUS MEM Q4HR PRN PRN Reason: Cough Last Admin: 08/03/19 01:10 Dose: 1 each Documented by: Cinacalcet (Sensipar) 30 mg PO DAILY [facility] Last Admin: 08/03/19 09:34 Dose: 30 mg Documented by: Famotidine (Pepcid) 20 mg PO DAILY [facility] Last Admin: 08/03/19 09:34 Dose: 20 mg Documented by: Ferrous Sulfate (Feosol) 325 mg PO BID [facility] Last Admin: 08/03/19 19:25 Dose: 325 mg Documented by: Ceftriaxone Sodium 1 gm/ (Sodium Chloride) 50 mls @ 100 mls/hr IVPB Q24HR [facility] Last Admin: 08/03/19 09:36 Dose: 100 mls/hr Documented by: Lorazepam (Ativan) 0.5 mg PO Q12H [facility] Last Admin: 08/03/19 19:24 Dose: 0.5 mg Documented by: Losartan Potassium (Cozaar) 25 mg PO DAILY [facility] Last Admin: 08/03/19 09:35 Dose: 25 mg Documented by: Metoprolol Tartrate (Lopressor) 25 mg PO BID [facility] Last Admin: 08/03/19 19:25 Dose: 25 mg Documented by: Naloxone HCl (Narcan) 0.2 mg IV Q2M PRN PRN Reason: Opioid Reversal Non-Formulary Medication (Polycal Powder) 17 gm PO HS [facility] Last Admin: 08/03/19 19:28 Dose: Not Given Documented by: Rivaroxaban (Xarelto) 15 mg PO [facility] Last Admin: 08/03/19 19:25 Dose: 15 mg Documented by: Senna/Docusate Sodium (Senokot-S) 1 each PO BID [facility] Last Admin: 08/03/19 19:25 Dose: 1 each Documented by: Sertraline HCl (Zoloft) 150 mg PO DAILY [facility] Last Admin: 08/03/19 09:34 Dose: 150 mg Documented by: Physical examination: VITAL SIGNS: 98.2, 59, 16, 98/55, 99% on 3 L GENERAL: Sitting up in a chair, comfortable, eating EYES: Pupils equal. Conjunctiva normal. HEENT: External appearance of nose and ears normal, oral cavity grossly normal. NECK: JVD not raised; masses not palpable. HEART: Heart sounds irregular no edema. LUNGS: Respiratory rate increased; improved air entry ABDOMEN: Soft, nontender, liver spleen not palpable, no masses palpable. PSYCH: Answering simple questions INVESTIGATIONS, reviewed in the clinical context: Potassium 5 bun 49 and creatinine 1.66 White count 7.1 hemoglobin 9.2 platelets 207 potassium 5 creatinine 1.04 Troponin I 0.112 EKG tracing personally reviewed by me-atrial flutter rate uncontrolled Chest x-ray film personally reviewed by me-cardiomegaly COVID-19 PCR-not detected 2-D co-EF 35-40%, moderate concentric LVH, moderate mitral regurgitation Urine culture-polymicrobial Assessment: -Persistent atrial flutter-atrial fibrillation with rapid ventricular rate, POA, chronically on xarelto-remains uncontrolled this morning -Intermittent asthma with acute exacerbation, POA-improving -Chronic medical debility uses a walker -Normocytic anemia of chronic kidney disease -chronic congestive heart failure from systolic dysfunction EF 35/40% -Hypertensive heart disease -Moderate mitral regurgitation -Essential hypertension -Hyperlipidemia -Obstructive sleep apnea uses a CPAP -Chronic kidney disease stage 3 from nephrosclerosis -Moderate 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 -Patient has a legal guardians -Acute kidney injury creatinine going from 1.04 up to 1.66. Recently the creatinine was 1.46 possibly chronic kidney disease Plan: -We will check patient renal function tomorrow morning. If not too changed. We'll discharge home tomorrow.
[2019-08-04 06:18] LABS: Glucose,Whole Blood 111 mg/dL (75-99)
[2019-08-04] MEDS: IPRATROPIUM-ALBUTEROL 3 ML NEB INHALATION SCH ×3 (08:25→16:10)
[2019-08-04 08:49] LABS: Calcium 8.1 mg/dL (8.4-10.2); Potassium 4.2 mmol/L (3.5-5.1)
[2019-08-04] MEDS: SERTRALINE 50 MG TAB PO SCH (10:13)
[2019-08-04] MEDS: HYDROcodone/APAP 5-325MG 1 EACH TAB PO SCH (10:14)
[2019-08-04] MEDS: LORazepam 0.5 MG TAB PO SCH (10:14)
[2019-08-04] MEDS: FERROUS SULFATE 325 MG TAB PO SCH (10:14)
[2019-08-04] MEDS: FAMOTIDINE 20 MG TAB PO SCH (10:14)
[2019-08-04] MEDS: METOPROLOL TARTRATE 25 MG TAB PO SCH (10:14)
[2019-08-04] MEDS: SENNOSIDES-DOCUSATE SODIUM 1 EACH TAB PO SCH (10:14)
[2019-08-04] MEDS: LOSARTAN 25 MG TAB PO SCH (10:15)
[2019-08-04] MEDS: CINACALCET 30 MG TAB PO SCH (10:15)
[2019-08-04 11:43] VITALS: BP 110/67; TEMP 97.9
[2019-08-04 12:17] LABS: Glucose,Whole Blood 103 mg/dL (75-99)
--- NOTE | 2019-08-04 12:33 | P.PN ---
Subjective Progress Note Date: 08/04/19 This is a 68-year-old female patient admitted to the hospital with typical atrial flutter with rapid ventricular response as well as associated UTI. Patient also has a history of hypertension, hyperlipidemia, chronic kidney failure, COPD, sleep apnea apnea and mild cognitive impairment. Patient was seen in consultation yesterday by Dr. Fonseca, this morning she continues to be in an atrial flutter with a heart rate in the 120 to 130 range. We will discontinue the Cardizem and start the patient on a beta fauzia. An echocardiogram with Doppler study was performed which revealed an ejection fraction of 35-40%. Moderate mitral regurgitation. 08/03/2019 Patient was seen and examined this morning, she states that she felt more tired today, but overall feels well. She did breakfast this morning. Denies any palpitations, breathing is stable. She continues to be in atrial flutter this morning with a heart rate in the 70s. Blood pressure 110/60. Sodium 139, potassium 5.0, BUN 49, creatinine 1.6. 08/04/2019 Patient seen and examined this morning. Blood pressure 110/60, heart rate in the 70s. Sodium 138, potassium 4.2, BUN 48, creatinine 1.5. Objective - Vital Signs Vital signs: Vital Signs Temp 97.9 F 08/04/19 08:00 Pulse 76 08/04/19 11:57 Resp 16 08/04/19 08:00 BP 110/67 08/04/19 08:00 Pulse Ox 100 08/04/19 08:00 Intake & Output 08/03/19 08/04/19 08/04/19 18:59 06:59 18:59 Intake Total 120 10 100 Output Total 300 Balance 120 -290 100 Weight 79.5 kg Intake: IV 10 Invasive Line 2 10 Oral 120 100 Output: Urine 300 Other: Voiding Method Bedside Commode Bedside Commode Bedside Commode Diaper Diaper Diaper # Voids 2 # Bowel Movements 1 - Exam PHYSICAL EXAMINATION: GENERAL: 68-year-old female in no acute distress at the time of my examination HEENT: Head is atraumatic, normocephalic. Pupils equal, round. Sclera anicteric. Conjunctiva are clear. Mucous membranes of the mouth are moist. Neck is supple. There is no elevated jugular venous pressure. No carotid bruit is heard. HEART EXAMINATION: S1 and S2 irregularly irregular a systolic murmur is heard CHEST EXAMINATION: Lungs are clear to auscultation and precussion. No chest wall tenderness is noted on palpation or with deep breathing. ABDOMEN: Soft, obese, nontender. Bowel sounds are heard. No organomegaly noted. EXTREMITIES:1+ peripheral pulses with evidence of peripheral edema and no calf tenderness noted. NEUROLOGIC patient is awake, alert and oriented 3 . . - Labs CBC & Chem 7: 07/31/19 12:20 08/04/19 06:12 Labs: Abnormal Lab Results - Last 24 Hours (Table) 08/03/19 08/03/19 08/04/19 Range/Units 16:35 20:13 06:12 BUN 48 H (7-17) mg/dL Creatinine 1.59 H (0.52-1.04) mg/dL Glucose 100 H (74-99) mg/dL POC Glucose (mg/dL) 125 H 153 H (75-99) mg/dL Calcium 8.1 L (8.4-10.2) mg/dL 08/04/19 08/04/19 Range/Units 06:16 12:16 BUN (7-17) mg/dL Creatinine (0.52-1.04) mg/dL Glucose (74-99) mg/dL POC Glucose (mg/dL) 111 H 103 H (75-99) mg/dL Calcium (8.4-10.2) mg/dL Microbiology - Last 24 Hours (Table) 07/31/19 13:48 Urine Culture - Final Urine,Voided 07/31/19 13:30 Blood Culture - Preliminary Blood No Growth after 72 hours Assessment and Plan Plan: Assessment and plan #1 typical atrial flutter with rapid ventricular response #2 hypertension #3 hyperlipidemia #4 COPD #5 sleep apnea #6 nonischemic cardiomyopathy with documented ejection fraction of 35-40% Plan From cardiology's perspective, we'll continue the patient on her current medications. We will monitor the kidney function closely. She is not currently on Aldactone because of abnormal renal function and a potassium of 5.0. Stable for discharge from cardiology's perspective. DNP note has been reviewed, I agree with a documented findings and plan of care. Patient was seen and examined.
--- NOTE | 2019-08-04 14:26 | P.DS ---
Providers Date of admission: 07/31/19 14:31 Expected date of discharge: 08/04/19 Attending physician: Eddi Munoz Consults: 07/31/19 14:32 Consult Physician Urgent Consulting Provider: Freddy Barrera Consult Reason/Comments: a flutter w rvr Do you want consulting provider notified?: Yes Primary care physician: Travis Bronson [facility] Course: Chief Complaint: Short of breath History of presenting complaint: This is a pleasant 68-year-old patient of Dr. Mccoy. Resident of [facility]/ [place] [facility] [place] . Has a legal guardian. Chronic stable medical conditions include CHF EF 50-60%, hypertension, hyperlipidemia, obstructive sleep apnea uses CPAP, chronic kidney disease stage III, anemia of kidney disease, moderate cognitive impairment.. Patient not the best of historians. Presents with worsening shortness of breath today. Slight cough. No fever no chills. Appetite is okay. Some wheezing. Found to be in atrial flutter uncontrolled. At her baseline uses a wheelchair and a walker Admitted with-atrial flutter uncontrolled and asthma exacerbation. Also UTI. Was started on IV Cardizem in the ER and also bronchodilators.. On IV ceftriaxone. Today-. Heart rate better controlled. Comfortable. Eating. Consultation: Dr. Isai Yee from cardiology Physical examination: VITAL SIGNS: 97.9, 55, 16, 110/67, 100% on 3 L GENERAL: Sitting up in a chair, comfortable, eating EYES: Pupils equal. Conjunctiva normal. HEENT: External appearance of nose and ears normal, oral cavity grossly normal. NECK: JVD not raised; masses not palpable. HEART: Heart sounds irregular no edema. LUNGS: Respiratory rate increased; improved air entry ABDOMEN: Soft, nontender, liver spleen not palpable, no masses palpable. PSYCH: Answering simple questions INVESTIGATIONS, reviewed in the clinical context: Creatinine 1.59 White count 7.1 hemoglobin 9.2 platelets 207 potassium 5 creatinine 1.04 Troponin I 0.112 EKG tracing personally reviewed by me-atrial flutter rate uncontrolled Chest x-ray film personally reviewed by me-cardiomegaly COVID-19 PCR-not detected 2-D co-EF 35-40%, moderate concentric LVH, moderate mitral regurgitation Urine culture-polymicrobial Assessment: -Persistent atrial flutter-atrial fibrillation with rapid ventricular rate, POA, chronically on xarelto-remains uncontrolled this morning -Intermittent asthma with acute exacerbation, POA-improving -Chronic medical debility uses a walker -Normocytic anemia of chronic kidney disease -chronic congestive heart failure from systolic dysfunction EF 35/40% -Hypertensive heart disease -Moderate mitral regurgitation -Essential hypertension -Hyperlipidemia -Obstructive sleep apnea uses a CPAP -Chronic kidney disease stage 3 from nephrosclerosis -Moderate 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 -Patient has a legal guardians -No Acute kidney injury - chronic kidney disease stage III from nephrosclerosis with hypertension Disposition: ECF/[facility] on Patient Condition at Discharge: Stable Plan - Discharge Summary Discharge Rx Participant: No New Discharge Prescriptions: New Metoprolol Tartrate [Lopressor] 25 mg PO BID #1 tab Cefuroxime [Ceftin] 250 mg PO BID 3 Days #6 tab Continue Sennosides-Docusate Sodium [Senokot-S] 1 tab PO BID Rivaroxaban [Xarelto] 15 mg PO HS Cinacalcet [Sensipar] 30 mg PO DAILY Famotidine [Pepcid] 20 mg PO DAILY Losartan [Cozaar] 25 mg PO DAILY tab Ipratropium-Albuterol Nebulize [Duoneb 0.5 mg-3 mg/3 ml Soln] 3 ml INHALATION RT-QID ml Atorvastatin [Lipitor] 40 mg PO HS tab Ferrous Sulfate [Iron (65 MG Elemental)] 325 mg PO BID Sertraline [Zoloft] 150 mg PO DAILY Polycal Powder 17 gm PO HS LORazepam [Ativan] 0.5 mg PO Q12H #6 tab HYDROcodone/APAP 5-325MG [[place] 5-325] 2 tab PO Q12H #12 tab Discontinued Diltiazem Cd [Cardizem CD] 240 mg PO DAILY cap.er.24h Guaifenesin/Dextromethorphan [Robitussin Cough-Chest Dm Liq] 15 ml PO Q6H PRN PRN Reason: Cough Discharge Medication List Cinacalcet [Sensipar] 30 mg PO DAILY 09/18/17 [History] Rivaroxaban [Xarelto] 15 mg PO HS 09/18/17 [History] Sennosides-Docusate Sodium [Senokot-S] 1 tab PO BID 09/18/17 [History] Famotidine [Pepcid] 20 mg PO DAILY 05/10/19 [History] Atorvastatin [Lipitor] 40 mg PO HS tab 05/18/19 [Rx] Ipratropium-Albuterol Nebulize [Duoneb 0.5 mg-3 mg/3 ml Soln] 3 ml INHALATION RT-QID ml 05/18/19 [Rx] Losartan [Cozaar] 25 mg PO DAILY tab 05/18/19 [Rx] Ferrous Sulfate [Iron (65 MG Elemental)] 325 mg PO BID 07/31/19 [History] Polycal Powder 17 gm PO HS 07/31/19 [History] Sertraline [Zoloft] 150 mg PO DAILY 07/31/19 [History] Cefuroxime [Ceftin] 250 mg PO BID 3 Days #6 tab 08/04/19 [Rx] HYDROcodone/APAP 5-325MG [[place] 5-325] 2 tab PO Q12H #12 tab 08/04/19 [Rx] LORazepam [Ativan] 0.5 mg PO Q12H #6 tab 08/04/19 [Rx] Metoprolol Tartrate [Lopressor] 25 mg PO BID #1 tab 08/04/19 [Rx] Follow up Appointment(s)/Referral(s): Travis Mccoy DO [Primary Care Provider] - 1-2 days Patient Instructions/Handouts: Metoprolol (By mouth), A-fib (Atrial Fibrillation) (DC), Urinary Tract Infection in Women (GEN) Activity/Diet/Wound Care/Special Instructions: Medi
[2019-08-04 15:11] VITALS: RESP 18
[2019-08-04 16:21] VITALS: PULSE 100
== END 2019-08-04 16:43 | DRG 309 ==
LOC: EC 12:01 → 3SCARD 14:31
PROVIDERS: ADMIT Hospitalist; ATTEND Hospitalist
DX: I48.3 Typical atrial flutter (principal); N39.0 Urinary tract infection, site not specified; J45.21 Mild intermittent asthma with (acute) exacerbation; I13.0 Hypertensive heart and chronic kidney disease with heart failure and stage 1 through stage 4 chronic kidney disease, or unspecified chronic kidney disease; I50.22 Chronic systolic (congestive) heart failure; I42.8 Other cardiomyopathies; E11.22 Type 2 diabetes mellitus with diabetic chronic kidney disease; D63.1 Anemia in chronic kidney disease; N18.3 Chronic kidney disease, stage 3 (moderate); E66.01 Morbid (severe) obesity due to excess calories; I48.19 Other persistent atrial fibrillation; J44.9 Chronic obstructive pulmonary disease, unspecified; G30.1 Alzheimer's disease with late onset; F02.80 Dementia in other diseases classified elsewhere, unspecified severity, without behavioral disturbance, psychotic disturbance, mood disturbance, and anxiety; Z11.59 Encounter for screening for other viral diseases; E78.5 Hyperlipidemia, unspecified; I34.0 Nonrheumatic mitral (valve) insufficiency; F41.9 Anxiety disorder, unspecified; G47.33 Obstructive sleep apnea (adult) (pediatric); H91.90 Unspecified hearing loss, unspecified ear; R53.81 Other malaise; Z79.01 Long term (current) use of anticoagulants; Z79.891 Long term (current) use of opiate analgesic; Z79.899 Other long term (current) drug therapy; Z68.33 Body mass index [BMI] 33.0-33.9, adult; Z86.14 Personal history of Methicillin resistant Staphylococcus aureus infection; Z87.440 Personal history of urinary (tract) infections; Z87.448 Personal history of other diseases of urinary system; Z98.890 Other specified postprocedural states; Z98.42 Cataract extraction status, left eye; Z98.41 Cataract extraction status, right eye; Z97.4 Presence of external hearing-aid; Z88.5 Allergy status to narcotic agent; Z91.048 Other nonmedicinal substance allergy status; Z82.3 Family history of stroke; Z83.1 Family history of other infectious and parasitic diseases
CPT/HCPCS: 36415; 71045; 80048; 80053; 81001; 82272; 82728; 83605; 83615; 83735; 84145; 84484; 85025; 85610; 85730; 86140; 87040; 87086; 87635; 93005; 93306; 94640; 96365; 96366; 96375; 99291